=== PATIENT | female | born 1980 | race American Indian/Alaskan Native ===

== ENCOUNTER 2018-08-15 12:48 | Emergency (ER) | payer MEDICAID ==
[2018-08-15] MEDS ORDERED: CATAPRES PO ONE (13:33)
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
[2018-08-15] MEDS ORDERED: CATAPRES ONE (13:37)
[2018-08-15 13:54] LABS: Hematocrit 41.8 % (30.3-42.9); Hemoglobin 13.5 gm/dl (10.1-14.3); Mean Corpuscular HGB Conc 32 % (30-34); Mean Corpuscular Volume 76 fl (79-97); Platelet Count 361 K/mm3 (140-440); Red Blood Count 5.49 M/mm3 (3.65-5.03); Red Cell Distribution Width 14.1 % (13.2-15.2)
[2018-08-15 14:34] LABS: Alanine Aminotransferase 28 units/L (7-56); Albumin 4.1 g/dL (3.9-5); BUN/Creatinine Ratio 18; Blood Urea Nitrogen 11 mg/dL (7-17); Calcium 9.2 mg/dL (8.4-10.2); Hemolysis Index 6
[2018-08-15 14:49] LABS: Bacteria,Urine 4+ /HPF (Negative); Bilirubin,Urine NEG (Negative); Blood,Urine SM (Negative); Color,Urine Colorless (Yellow); Hyaline Casts,Urine 1 /LPF; Protein,Urine <15 mg/dL mg/dL (Negative); Urobilinogen,Urine < 2.0 mg/dL (<2.0)
[2018-08-15 14:55] LABS: HCG Qualitative,Urine Negative (Negative)
[2018-08-15 17:01] VITALS: BP 171/95
--- NOTE | 2018-08-15 17:06 | Emergency Department Report ---
ED General Adult HPI - General Chief complaint: High BP Stated complaint: HTN Time Seen by Provider: 08/15/18 13:29 Source: patient Mode of arrival: Wheelchair Limitations: No Limitations - History of Present Illness Initial comments: This is a 38-year-old -[place] female presents with elevated blood pressure from chiropractor's office. The patient states she was sent here directly from chiropractor's office because her blood pressure was elevated. Patient states she was seen by her PCP Dr. Craig. Last Tuesday and medications were revealed. She is currently taking losartan unsure of the dose. Patient states she is currently taking Lantus and NovoLog. She needed a prior authorization before able to purchase medication. Patient states she's been off insulin since last Tuesday. She denies chest pain, palpitations, shortness of breath, or dizziness. -: This morning Severity scale (0 -10): 0 Improves with: none Worsens with: none Associated Symptoms: denies other symptoms Treatments Prior to Arrival: none - Related Data Previous Rx's Medication Instructions Recorded Last Taken Type glipiZIDE [Glipizide] 10 mg PO DAILY #30 tablet 08/15/18 Unknown Rx Allergies Allergy/AdvReac Type Severity Reaction Status Date / Time shellfish derived Allergy Swelling Verified 02/19/13 20:31 acetaminophen [From Tylenol] AdvReac Unknown Verified 08/15/18 13:36 ED Review of Systems ROS: Stated complaint: HTN Other details as noted in HPI Constitutional: denies: chills, fever Eyes: denies: eye pain, eye discharge, vision change Respiratory: denies: cough, shortness of breath, wheezing Cardiovascular: denies: chest pain, palpitations Gastrointestinal: denies: abdominal pain, nausea, diarrhea Skin: denies: rash, lesions Neurological: denies: headache, weakness, paresthesias Psychiatric: denies: anxiety, depression ED Past Medical Hx - Past Medical History Previous Medical History?: Yes Hx Diabetes: Yes Hx Psychiatric Treatment: No (Patient denies) Hx Asthma: Yes - Social History Smoking Status: Never Smoker Substance Use Type: None - Medications Home Medications: Home Medications Medication Instructions Recorded Confirmed Last Taken Type glipiZIDE [Glipizide] 10 mg PO DAILY #30 tablet 08/15/18 Unknown Rx ED Physical Exam - General Limitations: No Limitations General appearance: alert, in no apparent distress, obese (morbidly obese) - Respiratory Respiratory exam: Present: normal lung sounds bilaterally. Absent: respiratory distress - Cardiovascular Cardiovascular Exam: Present: regular rate, normal rhythm. Absent: systolic murmur, diastolic murmur, rubs, gallop - GI/Abdominal GI/Abdominal exam: Present: soft, normal bowel sounds - Neurological Exam Neurological exam: Present: alert, oriented X3 - Psychiatric Psychiatric exam: Present: normal affect, normal mood - Skin Skin exam: Present: warm, dry, intact, normal color. Absent: rash ED Course Vital Signs 08/15/18 08/15/18 08/15/18 13:29 13:35 16:58 Temperature 98.2 F 97.4 F L Pulse Rate 74 74 74 Respiratory 18 16 Rate Blood Pressure 203/86 203/86 171/95 Blood Pressure [Right] O2 Sat by Pulse 100 99 Oximetry 08/15/18 17:19 Temperature Pulse Rate 75 Respiratory 16 Rate Blood Pressure Blood Pressure 171/95 [Right] O2 Sat by Pulse 98 Oximetry ED Medical Decision Making - Lab Data Result diagrams: 08/15/18 13:40 08/15/18 13:40 Lab Results 08/15/18 08/15/18 08/15/18 Range/Units 13:38 13:40 13:40 WBC 8.2 (4.5-11.0) K/mm3 RBC 5.49 H (3.65-5.03) M/mm3 Hgb 13.5 (10.1-14.3) gm/dl Hct 41.8 (30.3-42.9) % MCV 76 L (79-97) fl MCH 25 L (28-32) pg MCHC 32 (30-34) % RDW 14.1 (13.2-15.2) % Plt Count 361 (140-440) K/mm3 VBG pH (7.320-7.420) Sodium 139 (137-145) mmol/L Potassium 3.8 (3.6-5.0) mmol/L Chloride 99.6 (98-107) mmol/L Carbon Dioxide 28 (22-30) mmol/L Anion Gap 15 mmol/L BUN 11 (7-17) mg/dL Creatinine 0.6 L (0.7-1.2) mg/dL Estimated GFR > 60 ml/min BUN/Creatinine Ratio 18 % Glucose 276 H (65-100) mg/dL POC Glucose 266 H (70-105) Ketones Quantitative (Negative) Calcium 9.2 (8.4-10.2) mg/dL Total Bilirubin 0.20 (0.1-1.2) mg/dL AST 20 (5-40) units/L ALT 28 (7-56) units/L Alkaline Phosphatase 139 H (35-129) units/L Total Protein 7.7 (6.3-8.2) g/dL Albumin 4.1 (3.9-5) g/dL Albumin/Globulin Ratio 1.1 % Urine Color (Yellow) Urine Turbidity (Clear) Urine pH (5.0-7.0) Ur Specific [place] (1.003-1.030) Urine Protein (Negative) mg/dL Urine Glucose (UA) (Negative) mg/dL Urine Ketones (Negative) mg/dL Urine Blood (Negative) Urine Nitrite (Negative) Urine Bilirubin (Negative) Urine Urobilinogen (<2.0) mg/dL Ur Leukocyte Esterase (Negative) Urine WBC (Auto) (0.0-6.0) /HPF Urine RBC (Auto) (0.0-6.0) /HPF U Epithel Cells (Auto) (0-13.0) /HPF Urine Bacteria (Auto) (Negative) /HPF Hyaline Casts /LPF Urine HCG, Qual (Negative) 08/15/18 08/15/18 08/15/18 Range/Units 13:40 13:40 13:49 WBC (4.5-11.0) K/mm3 RBC (3.65-5.03) M/mm3 Hgb (10.1-14.3) gm/dl Hct (30.3-42.9) % MCV (79-97) fl MCH (28-32) pg MCHC (30-34) % RDW (13.2-15.2) % Plt Count (140-440) K/mm3 VBG pH 7.298 L (7.320-7.420) Sodium (137-145) mmol/L Potassium (3.6-5.0) mmol/L Chloride (98-107) mmol/L Carbon Dioxide (22-30) mmol/L Anion Gap mmol/L BUN (7-17) mg/dL Creatinine (0.7-1.2) mg/dL Estimated GFR ml/min BUN/Creatinine Ratio % Glucose (65-100) mg/dL POC Glucose (70-105) Ketones Quantitative Negative (Negative) Calcium (8.4-10.2) mg/dL Total Bilirubin (0.1-1.2) mg/dL AST (5-40) units/L ALT (7-56) units/L Alkaline Phosphatase (35-129) units/L Total Protein (6.3-8.2) g/dL Albumin (3.9-5) g/dL Albumin/Globulin Ratio % Urine Color Colorless (Yellow) Urine Turbidity Clear (Clear) Urine pH 6.0 (5.0-7.0) Ur Specific [place] 1.001 L (1.003-1.030) Urine Protein <15 mg/dl (Negative) mg/dL Urine Glucose (UA) >=500 (Negative) mg/dL Urine Ketones Neg (Negative) mg/dL Urine Blood Sm (Negative) Urine Nitrite Neg (Negative) Urine Bilirubin Neg (Negative) Urine Urobilinogen < 2.0 (<2.0) mg/dL Ur Leukocyte Esterase Neg (Negative) Urine WBC (Auto) 1.0 (0.0-6.0) /HPF Urine RBC (Auto) 1.0 (0.0-6.0) /HPF U Epithel Cells (Auto) 1.0 (0-13.0) /HPF Urine Bacteria (Auto) 4+ (Negative) /HPF Hyaline Casts 1 /LPF Urine HCG, Qual Negative (Negative) 08/15/18 Range/Units 18:37 WBC (4.5-11.0) K/mm3 RBC (3.65-5.03) M/mm3 Hgb (10.1-14.3) gm/dl Hct (30.3-42.9) % MCV (79-97) fl MCH (28-32) pg MCHC (30-34) % RDW (13.2-15.2) % Plt Count (140-440) K/mm3 VBG pH (7.320-7.420) Sodium (137-145) mmol/L Potassium (3.6-5.0) mmol/L Chloride (98-107) mmol/L Carbon Dioxide (22-30) mmol/L Anion Gap mmol/L BUN (7-17) mg/dL Creatinine (0.7-1.2) mg/dL Estimated GFR ml/min BUN/Creatinine Ratio % Glucose (65-100) mg/dL POC Glucose 235 H (70-105) Ketones Quantitative (Negative) Calcium (8.4-10.2) mg/dL Total Bilirubin (0.1-1.2) mg/dL AST (5-40) units/L ALT (7-56) units/L Alkaline Phosphatase (35-129) units/L Total Protein (6.3-8.2) g/dL Albumin (3.9-5) g/dL Albumin/Globulin Ratio % Urine Color (Yellow) Urine Turbidity (Clear) Urine pH (5.0-7.0) Ur Specific [place] (1.003-1.030) Urine Protein (Negative) mg/dL Urine Glucose (UA) (Negative) mg/dL Urine Ketones (Negative) mg/dL Urine Blood (Negative) Urine Nitrite (Negative) Urine Bilirubin (Negative) Urine Urobilinogen (<2.0) mg/dL Ur Leukocyte Esterase (Negative) Urine WBC (Auto) (0.0-6.0) /HPF Urine RBC (Auto) (0.0-6.0) /HPF U Epithel Cells (Auto) (0-13.0) /HPF Urine Bacteria (Auto) (Negative) /HPF Hyaline Casts /LPF Urine HCG, Qual (Negative) - Medical Decision Making This is a 38 y.o. female that presents to ER for evaluation of blood pressure. History of HTN, DM, and asthma. Patient sent here from chiropractor office. She is off insulin since Tuesday, pending prior authorization and PCP. She is currently taking losartan and unsure of dose. She denies acute symptoms. Patient is stable and was examined by me. Given clonidine and insulin once in ER. Blood pressure and glucose trended down. Start glipizide. Follow up with PCP in 2-3 days. Discussed plan with patient and agreed to plan. No further questions noted by the patient. Discharged home in stable condition. Critical care attestation.: If time is entered above; I have spent that time in minutes in the direct care of this critically ill patient, excluding procedure time. ED Disposition Clinical Impression: Asymptomatic hypertension, Hyperglycemia without ketosis Disposition: TO HOME OR SELFCARE Is pt being admited?: No Does the pt Need Aspirin: No Condition: Stable Instructions: Diabetes Mellitus Type 2 in Adults (ED), Hypertension (ED) Additional Instructions: Follow up with PCP. Prescriptions: glipiZIDE [Glipizide] 10 mg PO DAILY #30 tablet Referrals: ORAL ARANDA MD [Staff Physician] - 3-5 Days SLOANE ARANDA MD [Referring] - 3-5 Days MARCELINA CARUSO MD [Staff Physician] - 3-5 Days Time of Disposition: 18:46
[2018-08-15] MEDS ORDERED: HumuLIN R IV ONE (17:12)
== END 2018-08-15 19:05 | disposition home or self-care (01) ==
LOC: ED 12:48
DX: I10 Essential (primary) hypertension (principal); E11.65 Type 2 diabetes mellitus with hyperglycemia; J45.909 Unspecified asthma, uncomplicated; E66.01 Morbid (severe) obesity due to excess calories; Z68.42 Body mass index [BMI] 45.0-49.9, adult; Z91.013 Allergy to seafood; Z79.4 Long term (current) use of insulin; Z88.5 Allergy status to narcotic agent
CPT/HCPCS: 36415; 80053; 81001; 81025; 82010; 82805; 82962; 85027; 96374; J1815

== ENCOUNTER 2020-01-11 16:19 | Inpatient (IN) | payer MEDICAID ==
[~2020-01-11 16:19] MED LIST: ETOMIDATE 20 MG/10 ML INJ IV ONE; SUCCINYLCHOLINE CHLORIDE 200 MG/10 ML INJ MDV ONE
[2020-01-11] MEDS ORDERED: SODIUM CHLORIDE 0.9% 1000 ML 1,000 ML IV ONE (16:49)
[2020-01-11] MEDS: cefTRIAXone/NS 2 GM/100 ML 2 GM/100 ML BAG IV SCH (17:12)
--- NOTE | 2020-01-11 17:20 | Emergency Department Report ---
ED Shortness of Breath HPI - General Chief Complaint: Dyspnea/Respdistress Stated Complaint: ALTON/COVID POSITIVE Time Seen by Provider: 01/11/20 16:30 Source: patient, EMS Mode of arrival: Wheelchair Limitations: No Limitations - History of Present Illness Initial Comments: Patient is a 39-year-old F [place] female with a past medical history of asthma diabetes who is presenting with respiratory distress. Patient tested positive for COVID-19 approximately 8 days ago. Patient has been having cough which is nonproductive. Patient states symptoms worsened today and she became very short of breath. She called her primary care physician who told her to come to the emergency department. Patient's had fevers and chills body aches. She denies nausea vomiting. MD Complaint: shortness of breath - Related Data Previous Rx's Medication Instructions Recorded Last Taken Type glipiZIDE [Glipizide] 10 mg PO DAILY #30 tablet 08/15/18 Unknown Rx Allergies Allergy/AdvReac Type Severity Reaction Status Date / Time shellfish derived Allergy Swelling Verified 02/19/13 20:31 acetaminophen [From Tylenol] AdvReac Unknown Verified 08/15/18 13:36 ED Review of Systems ROS: Stated complaint: ALTON/COVID POSITIVE Other details as noted in HPI ED Past Medical Hx - Past Medical History Hx Diabetes: Yes Hx Psychiatric Treatment: No (Patient denies) Hx Asthma: Yes - Social History Smoking Status: Never Smoker Substance Use Type: None - Medications Home Medications: Home Medications Medication Instructions Recorded Confirmed Last Taken Type glipiZIDE [Glipizide] 10 mg PO DAILY #30 tablet 08/15/18 Unknown Rx ED Physical Exam - General Limitations: No Limitations ED Course Vital Signs 01/11/20 01/11/20 01/11/20 16:20 16:46 17:15 Temperature 101.3 F H Pulse Rate 94 H 114 H Respiratory 45 H Rate Blood Pressure 122/64 101/53 O2 Sat by Pulse 96 86 Oximetry ED Medical Decision Making - Lab Data Result diagrams: 01/11/20 17:22 Lab Results 01/11/20 01/11/20 01/11/20 Range/Units 17:22 17:22 17:22 D-Dimer 622.52 H (0-234) ng/mlDDU Sodium 137 (137-145) mmol/L Potassium 3.8 (3.6-5.0) mmol/L Chloride 97.6 L (98-107) mmol/L Carbon Dioxide 18 L (22-30) mmol/L Anion Gap 25 mmol/L BUN 16 (7-17) mg/dL Creatinine 1.2 (0.6-1.2) mg/dL Estimated GFR > 60 ml/min BUN/Creatinine Ratio 13 % Glucose 199 H (65-100) mg/dL Lactic Acid 2.20 H* (0.7-2.0) mmol/L Calcium 8.5 (8.4-10.2) mg/dL Ferritin (10.0-200.0) ng/mL Total Bilirubin 0.20 (0.1-1.2) mg/dL AST 68 H (5-40) units/L ALT 32 (7-56) units/L Alkaline Phosphatase 103 (35-129) units/L Lactate Dehydrogenase (91-180) units/L C-Reactive Protein (0.00-1.30) mg/dL Total Protein 7.0 (6.3-8.2) g/dL Albumin 3.0 L (3.9-5) g/dL Albumin/Globulin Ratio 0.8 % 01/11/20 01/11/20 Range/Units 17:22 17:22 D-Dimer (0-234) ng/mlDDU Sodium (137-145) mmol/L Potassium (3.6-5.0) mmol/L Chloride (98-107) mmol/L Carbon Dioxide (22-30) mmol/L Anion Gap mmol/L BUN (7-17) mg/dL Creatinine (0.6-1.2) mg/dL Estimated GFR ml/min BUN/Creatinine Ratio % Glucose 202 H (65-100) mg/dL Lactic Acid (0.7-2.0) mmol/L Calcium (8.4-10.2) mg/dL Ferritin 270.3 H (10.0-200.0) ng/mL Total Bilirubin (0.1-1.2) mg/dL AST (5-40) units/L ALT (7-56) units/L Alkaline Phosphatase (35-129) units/L Lactate Dehydrogenase 610 H (91-180) units/L C-Reactive Protein 23.80 H (0.00-1.30) mg/dL Total Protein (6.3-8.2) g/dL Albumin (3.9-5) g/dL Albumin/Globulin Ratio % - Radiology Data CHEST 1 VIEW 1656 INDICATION / CLINICAL INFORMATION: resp distress +covid COMPARISON: None available. FINDINGS: SUPPORT DEVICES: None HEART / MEDIASTINUM: No significant abnormality. LUNGS / PLEURA: Poor degree of inspiration is seen. Moderate patchy bilateral pulmonary infiltrates are noted. These are seen scattered throughout the lung jaimes bilaterally but are most prominent in the lung bases, right worse than left. Air bronchograms are seen in the lung bases. No pneumothorax. ADDITIONAL FINDINGS: No significant additional findings. IMPRESSION: Moderate patchy bilateral pulmonary infiltrates likely representing pneumonitis which could be viral Signer Name: Dante Iqbal MD Signed: 01/11/2020 5:23 PM Workstation Name: [email or web address] [id number] - Medical Decision Making Patient's O2 sat was in the 70s when EMS picked her up. Upper 80s on nasal c annula. Patient responded well to high flow nasal cannula and her O2 sats were in the mid 90s. Patient is chest x-ray consistent with bilateral pneumonia which is likely secondary to her COVID-19 diagnosis. Patient to be admitted to the hospitalist service for further management. Critical Care Time: Yes (30) Critical care attestation.: If time is entered above; I have spent that time in minutes in the direct care of this critically ill patient, excluding procedure time. ED Disposition Clinical Impression: COVID-19 Pneumonia Qualifiers: Pneumonia type: due to unspecified organism Laterality: bilateral Lung location: unspecified part of lung Qualified Code(s): J18.9 - Pneumonia, unspecified organism Disposition: DC-09 OP ADMIT IP TO THIS HOSP Is pt being admited?: Yes Does the pt Need Aspirin: No Condition: Stable Instructions: Bacterial Pneumonia (ED) Time of Disposition: 18:36
--- NOTE | 2020-01-11 17:27 | XRay Report ---
CHEST 1 VIEW 1656 INDICATION / CLINICAL INFORMATION: resp distress +covid COMPARISON: None available. FINDINGS: SUPPORT DEVICES: None HEART / MEDIASTINUM: No significant abnormality. LUNGS / PLEURA: Poor degree of inspiration is seen. Moderate patchy bilateral pulmonary infiltrates a re noted. These are seen scattered throughout the lung jaimes bilaterally but are most prominent in t he lung bases, right worse than left. Air bronchograms are seen in the lung bases. No pneumothorax. ADDITIONAL FINDINGS: No significant additional findings. IMPRESSION: Moderate patchy bilateral pulmonary infiltrates likely representing pneumonitis which cou ld be viral Signer Name: Dante Iqbal MD Signed: 01/11/2020 5:23 PM Workstation Name: [id number]
[2020-01-11 17:54] LABS: Alanine Aminotransferase 32 units/L (7-56); BUN/Creatinine Ratio 13; Blood Urea Nitrogen 16 mg/dL (7-17); Calcium 8.5 mg/dL (8.4-10.2); Hemolysis Index 0
[2020-01-11 17:55] LABS: C-Reactive Protein 23.8 mg/dL (0.00-1.30)
[2020-01-11] MEDS: AZITHROMYCIN 500 MG in SODIUM CHLORIDE 0.9% 250ML 250 ML IV SCH (18:11)
[2020-01-11] MEDS ORDERED: dexAMETHasone 20 MG/5 ML VIAL IV ONE (18:50)
--- NOTE | 2020-01-11 18:51 | History and Physical Report ---
History of Present Illness Chief complaint: It is hard for me to breathe History of present illness: 39 YO Female with MO, Obesity Hypoventilation Syndrome, DM, Asthma presents to ED for evaluation. Patient states that she has experienced shortness of breath over the past 3 days with worsening symptoms over the past 1 day. Patient also acknowledges nonproductive cough, malaise, weakness, fatigue, decreased exercise tolerance, subjective fever and body aches. Patient states that she tested positive for coronavirus 8 days ago and has experienced worsening symptoms over the past 3 days. EMS was notified and upon arrival the patient was found to be in distress. Patient placed on submental oxygen and transported to [facility] for further care and evaluation. Patient seen and evaluated in the emergency department. Lab and imaging studies reviewed. Patient found to have a pulse oximetry of 80% on room air which is consistent with acute hypoxemic respiratory failure as well as a fever with a temperature of 101.3 F. Patient underwent chest x-ray which revealed bilateral pneumonia which was complicated by sepsis. Patient admitted to medical floor and initiated on pneumonia protocol as well as COVID-19 protocol as well as sepsis protocol. Patient denies chills, chest pain, palpitations, productive cough, skin rash, recent ill contacts. Patient acknowledges positive coronavirus infection. No prior admission for review. All medication listed at time of admission has been reconciled. Coronavirus PCR has been ordered and is pending at time of admission. Past History Past Medical History: diabetes Past Surgical History: No surgical history, Other (Reviewed) Social history: single. denies: smoking, alcohol abuse, prescription drug abuse Family history: diabetes, hypertension Medications and Allergies Allergies Allergy/AdvReac Type Severity Reaction Status Date / Time shellfish derived Allergy Swelling Verified 01/11/20 18:37 Home Medications Medication Instructions Recorded Confirmed Last Taken Type glipiZIDE [Glipizide] 10 mg PO DAILY #30 tablet 08/15/18 Unknown Rx Active Meds: Active Medications Dexamethasone (Decadron) 10 mg IV ONCE ONE Stop: 01/11/20 18:51 Ceftriaxone Sodium (Rocephin/Ns 2 Gm/100 Ml) 2 gm in 100 mls @ 200 mls/hr IV Q24HR ASHISH; Protocol Last Admin: 01/11/20 17:12 Dose: 200 mls/hr Documented by: Azithromycin 500 mg/ Sodium (Chloride) 250 mls @ 250 mls/hr IV Q24HR ASHISH; Protocol Last Admin: 01/11/20 18:11 Dose: 250 mls/hr Documented by: Review of Systems Constitutional: no weight loss, no weight gain, no fever, no chills Ears, nose, mouth and throat: no ear pain, no ear discharge, no tinnitis, no decreased hearing, no nose pain Breasts: no change in shape, no swelling, no mass Cardiovascular: no chest pain, no orthopnea, no edema, no lightheadedness Respiratory: cough, shortness of breath, no congestion, no wheezing Gastrointestinal: no abdominal pain, no nausea, no vomiting, no diarrhea, no constipation Genitourinary Female: no dysmenorrhea, no pelvic pain, no flank pain, no menorrhagia, no dysuria Rectal: no pain, no incontinence, no bleeding Musculoskeletal: no neck stiffness, no neck pain, no shooting arm pain, no arm numbness/tingling, no low back pain Integumentary: no rash, no pruritis, no redness, no sores, no wounds Neurological: no transient paralysis, no paralysis, no weakness, no parathesias, no numbness, no tingling Psychiatric: no anxiety, no memory loss, no change in sleep habits, no change in appetite Endocrine: no cold intolerance, no heat intolerance, no polyphagia, no excessive thirst, no polydipsia, no polyuria, no nocturia Hematologic/Lymphatic: no easy bruising, no easy bleeding, no lymphadenopathy, no lymphedema Allergic/Immunologic: no urticaria, no allergic rhinitis, no wheezing, no anaphylaxis Exam - Constitutional Vitals: Temp Pulse Resp BP Pulse Ox 101.3 F H 115 H 66 H 132/53 93 01/11/20 16:46 01/11/20 18:31 01/11/20 18:31 01/11/20 18:31 01/11/20 18:31 General appearance: Present: mild distress - EENT Eyes: Present: PERRL ENT: hearing intact, clear oral mucosa - Neck Neck: Present: supple, normal ROM - Respiratory Respiratory effort: labored, accessory muscle use, stridor Respiratory: bilateral: diminished, rhonchi - Cardiovascular Heart Sounds: Present: S1 & S2. Absent: rub, click - Extremities Extremities: pulses symmetrical, No edema Peripheral Pulses: within normal limits - Abdominal General gastrointestinal: Present: soft, non-tender, non-distended, normal bowel sounds Female genitourinary: Present: normal - Integumentary Integumentary: Present: clear, warm, dry - Musculoskeletal Musculoskeletal: gait normal, strength equal bilaterally - Psychiatric Psychiatric: appropriate mood/affect, intact judgment & insight - Neurologic Neurologic: CNII-XII intact, moves all extremities Results - Labs CBC & Chem 7: 01/11/20 17:22 Labs: Abnormal lab results 01/11/20 01/11/20 01/11/20 Range/Units 17:22 17:22 17:22 D-Dimer 622.52 H (0-234) ng/mlDDU Chloride 97.6 L (98-107) mmol/L Carbon Dioxide 18 L (22-30) mmol/L Glucose 199 H (65-100) mg/dL Lactic Acid 2.20 H* (0.7-2.0) mmol/L Ferritin (10.0-200.0) ng/mL AST 68 H (5-40) units/L Lactate Dehydrogenase (91-180) units/L C-Reactive Protein (0.00-1.30) mg/dL Albumin 3.0 L (3.9-5) g/dL 01/11/20 01/11/20 Range/Units 17:22 17:22 D-Dimer (0-234) ng/mlDDU Chloride (98-107) mmol/L Carbon Dioxide (22-30) mmol/L Glucose 202 H (65-100) mg/dL Lactic Acid (0.7-2.0) mmol/L Ferritin 270.3 H (10.0-200.0) ng/mL AST (5-40) units/L Lactate Dehydrogenase 610 H (91-180) units/L C-Reactive Protein 23.80 H (0.00-1.30) mg/dL Albumin (3.9-5) g/dL Assessment and Plan - Patient Problems (1) Sepsis Current Visit: Yes Status: Acute Qualifiers: Acute respiratory failure type: with hypoxia Plan to address problem: Sepsis protocol: CBC, CMP, IV antibiotic therapy, monitor urine output every shift, serial lactic acid level, chest x-ray, urinalysis (2) Acute hypoxemic respiratory failure Current Visit: Yes Status: Acute Plan to address problem: Supplemental oxygen, nebulizer therapy, chest x-ray, pulse oximetry, supportive care, early ambulation. (3) Obesity hypoventilation syndrome Current Visit: Yes Status: Acute Plan to address problem: Supplemental oxygen, nebulizer therapy, high flow supplemental oxygen, wean supplemental oxygen as tolerated, balanced diet, increase physical activity at discharge, outpatient bariatric surgery follow-up, outpatient pulmonology evaluation for sleep study. (4) COVID-19 Current Visit: No Status: Acute Plan to address problem: Coronavirus protocol: Contact precautions, isolation precautions, IV steroid therapy, prone positioning while in bed, early ambulation, pulmonary toilet, supportive care. (5) Pneumonia Current Visit: No Status: Acute Qualifiers: Pneumonia type: due to unspecified organism Laterality: bilateral Lung location: unspecified part of lung Qualified Code(s): J18.9 - Pneumonia, unspecified organism Plan to address problem: Pneumonia protocol: IV antibiotic therapy, chest x-ray, CBC, CMP, blood cultures. (6) DVT prophylaxis Current Visit: Yes Status: Acute Plan to address problem: SCD to bilateral lower extremities while in bed, prophylactic anticoagulation
[2020-01-11] MEDS ORDERED: ONDANSETRON 4 MG/2 ML INJ IV PRN ×2 (18:52→18:55)
[2020-01-11] MEDS ORDERED: ACETAMINOPHEN 325 MG TAB PO PRN ×3 (18:52→18:59)
[2020-01-11] MEDS ORDERED: HYDROmorphone 1 MG/1 ML INJ IV PRN (18:57)
[2020-01-11] MEDS ORDERED: SODIUM CHLORIDE 0.9% 1000 ML IV SOLN IV ONE (18:59)
[2020-01-11] MEDS ORDERED: dexAMETHasone 20 MG/5 ML VIAL ONE (20:06)
[2020-01-11] MEDS ORDERED: SODIUM CHLORIDE 0.9% 1000 ML 1,000 ML ONE (20:06)
[2020-01-11] MEDS ORDERED: HYDROmorphone 1 MG/1 ML INJ ONE (20:06)
[2020-01-11] MEDS: HYDROmorphone 1 MG/1 ML INJ IV PRN (20:11)
[2020-01-11 22:10] LABS: Bacteria,Urine 1+ /HPF (Negative); Bilirubin,Urine NEG (Negative); Blood,Urine MOD (Negative); Color,Urine Yellow (Yellow); Urobilinogen,Urine < 2.0 mg/dL (<2.0)
[2020-01-11 22:11] LABS: Protein,Urine >500 mg/dL (Negative)
[2020-01-11] MEDS: FAMOTIDINE 20 MG TAB PO SCH (22:38)
[2020-01-11] MEDS: methylPREDNISolone Sod Succinate 40 MG/1 ML INJ IV SCH (22:38)
[2020-01-12] MEDS ORDERED: ALPRAZolam 0.25 MG TAB PO ONE (01:05)
[2020-01-12 07:42] LABS: Basophils % (Auto) 0.1 % (0.0-1.8); Hematocrit 40.6 % (30.3-42.9); Hemoglobin 13.2 gm/dl (10.1-14.3); Lymphocytes # (Auto) 1.2 K/mm3 (1.2-5.4); Lymphocytes % (Auto) 11.2 % (13.4-35.0); Mean Corpuscular HGB Conc 33 % (30-34); Mean Corpuscular Volume 76 fl (79-97); Monocytes # (Auto) 0.4 K/mm3 (0.0-0.8); Monocytes % (Auto) 3.5 % (0.0-7.3); Platelet Count 268 K/mm3 (140-440); Red Blood Count 5.31 M/mm3 (3.65-5.03); Red Cell Distribution Width 15.5 % (13.2-15.2)
[2020-01-12 07:52] LABS: BUN/Creatinine Ratio 19; Blood Urea Nitrogen 23 mg/dL (7-17); Calcium 8.7 mg/dL (8.4-10.2); Hemolysis Index 0
[2020-01-12] MEDS ORDERED: cefTRIAXone/NS 2 GM/100 ML 2 GM/100 ML BAG IV SCH (10:00)
--- NOTE | 2020-01-12 11:23 | Progress Note ---
Assessment and Plan - Patient Problems (1) Sepsis-stable Current Visit: Yes Status: Acute Qualifiers: Acute respiratory failure type: with hypoxia on vapor therm Plan to address problem: Continue Sepsis protocol: Continue IV antibiotic therapy (2) Acute hypoxemic respiratory failurelikely due to Covid infection Current Visit: Yes Status: Acute Plan to address problem: Continue oxygen supplement Respiratory care-ABG, nebulizer therapy Monitor inflammatory [id number] Encourage use of IS and early ambulation (3) Obesity hypoventilation syndrome Current Visit: Yes Status: Acute Plan to address problem: Discussed lifestyle modification-healthy diet and weight management Continue Supplemental oxygen, nebulizer therapy, high flow supplemental oxygen, wean supplemental oxygen as tolerated. Advised to follow up outpatient pulmonology for evaluation for sleep study. (4) [id number] Current Visit: No Status: Acute Plan to address problem: Continue Coronavirus protocol: Contact precautions, isolation precautions Continue IV steroid therapy, prone positioning while in bed, early ambulation, pulmonary toilet, supportive care. Check inflammatory makers-Procalcitonin negative D-dimer, LDH (5) Pneumonia Current Visit: No Status: Acute Qualifiers: Pneumonia type: due to unspecified organism Laterality: bilateral Lung location: unspecified part of lung Qualified Code(s): J18.9 - Pneumonia, unspecified organism Plan to address problem: Continue IV antibiotic therapy serial chest x-ray, CBC, CMP, blood cultures. (6) DVT prophylaxis Current Visit: Yes Status: Acute Plan to address problem: SCD to bilateral lower extremities while in bed, prophylactic anticoagulation Subjective Date of service: 01/12/20 Principal diagnosis: Shortness of breath Interval history: Patient seen at bedside-on vapor therm at 100 % oxygen. She admits shortness of breath, denies chest pain and chiles at time of assessment She said she was positive for covid 8 days ago and did not have symptoms at that time Advised to use IS while awake and to ambulate around the room Reviewed lab, mar, and v/s Objective - Constitutional Vitals: Vital Signs - 12hr 01/12/20 04:57 Temperature 99.4 F Pulse Rate 85 Respiratory 22 Rate Blood Pressure 111/68 O2 Sat by Pulse 93 Oximetry General appearance: Present: mild distress, obese - EENT Eyes: PERRL, EOM intact ENT: hearing intact, clear oral mucosa Ears: bilateral: normal - Neck Neck: supple, normal ROM - Respiratory Respiratory effort: other (shortness of breath-requiring oxygen supplement-but patient presently not in acute distress) Respiratory: bilateral: CTA - Breasts Breasts: normal - Cardiovascular Heart rate: 76 Rhythm: regular Extremities: pulses intact, No edema, normal color, Full ROM - Genitourinary Female genitourinary: normal - Integumentary Integumentary: clear, warm, dry - Musculoskeletal Musculoskeletal: generalized weakness (encouraged to ambulate as tolerated) - Psychiatric Psychiatric: appropriate mood/affect, intact judgment & insight, memory intact, cooperative - Allied health notes Allied health notes reviewed: nursing - Labs CBC & Chem 7: 01/12/20 07:07 01/12/20 07:07 Labs: Abnormal lab results 01/11/20 01/11/20 01/11/20 Range/Units 17:22 17:22 17:22 RBC (3.65-5.03) M/mm3 MCV (79-97) fl MCH (28-32) pg RDW (13.2-15.2) % Lymph % (Auto) (13.4-35.0) % Seg Neutrophils % (40.0-70.0) % Seg Neutrophils # (1.8-7.7) K/mm3 D-Dimer 622.52 H (0-234) ng/mlDDU Chloride 97.6 L (98-107) mmol/L Carbon Dioxide 18 L (22-30) mmol/L BUN (7-17) mg/dL Glucose 199 H (65-100) mg/dL Lactic Acid 2.20 H* (0.7-2.0) mmol/L Ferritin (10.0-200.0) ng/mL AST 68 H (5-40) units/L Lactate Dehydrogenase (91-180) units/L C-Reactive Protein (0.00-1.30) mg/dL Albumin 3.0 L (3.9-5) g/dL 01/11/20 01/11/20 01/11/20 Range/Units 17:22 17:22 23:29 RBC (3.65-5.03) M/mm3 MCV (79-97) fl MCH (28-32) pg RDW (13.2-15.2) % Lymph % (Auto) (13.4-35.0) % Seg Neutrophils % (40.0-70.0) % Seg Neutrophils # (1.8-7.7) K/mm3 D-Dimer (0-234) ng/mlDDU Chloride (98-107) mmol/L Carbon Dioxide (22-30) mmol/L BUN (7-17) mg/dL Glucose 202 H (65-100) mg/dL Lactic Acid 2.10 H* (0.7-2.0) mmol/L Ferritin 270.3 H (10.0-200.0) ng/mL AST (5-40) units/L Lactate Dehydrogenase 610 H (91-180) units/L C-Reactive Protein 23.80 H (0.00-1.30) mg/dL Albumin (3.9-5) g/dL 01/12/20 01/12/20 Range/Units 07:07 07:07 RBC 5.31 H (3.65-5.03) M/mm3 MCV 76 L (79-97) fl MCH 25 L (28-32) pg RDW 15.5 H (13.2-15.2) % Lymph % (Auto) 11.2 L (13.4-35.0) % Seg Neutrophils % 85.2 H (40.0-70.0) % Seg Neutrophils # 9.2 H (1.8-7.7) K/mm3 D-Dimer (0-234) ng/mlDDU Chloride (98-107) mmol/L Carbon Dioxide 21 L (22-30) mmol/L BUN 23 H (7-17) mg/dL Glucose 206 H (65-100) mg/dL Lactic Acid (0.7-2.0) mmol/L Ferritin (10.0-200.0) ng/mL AST (5-40) units/L Lactate Dehydrogenase (91-180) units/L C-Reactive Protein (0.00-1.30) mg/dL Albumin (3.9-5) g/dL
[2020-01-12] MEDS: cefTRIAXone/NS 2 GM/100 ML 2 GM/100 ML BAG IV SCH (12:06)
[2020-01-12] MEDS: FAMOTIDINE 20 MG TAB PO SCH ×2 (12:06→21:36)
[2020-01-12] MEDS: AZITHROMYCIN 500 MG in SODIUM CHLORIDE 0.9% 250ML 250 ML IV SCH (14:43)
[2020-01-12] MEDS: methylPREDNISolone Sod Succinate 40 MG/1 ML INJ IV SCH ×2 (15:14→22:00)
[2020-01-12] MEDS: HYDROmorphone 1 MG/1 ML INJ IV PRN (21:36)
--- NOTE | 2020-01-13 01:46 | Event Note ---
ED MD intubation note Requested by hospitalist Dr. Banks to intubate the patient Intubation note Consent was obtained verbally Preoxygenation with 100% oxygen Patient was sedated with etomidate 20mg IV Patient was paralyzed with succinylcholine 100 mg IV A size 7.5 mm ET tube was inserted orally on first attempt using a glidescope ET tube visualized going between the vocal cord There was symmetric chest rise and bilateral breath sounds post intubation A CO2 indicator was used for confirmation and resulted in positive CO2 return ET tube was taped at 21 cm at the lips The patient tolerated the procedure well There were no complications
[2020-01-13] MEDS: fentaNYL 100 MCG/2 ML INJ IV PRN ×2 (01:50→02:15)
[2020-01-13] MEDS ORDERED: MIDAZOLAM 2 MG/2 ML INJ IV PRN (01:52)
[2020-01-13] MEDS ORDERED: MINERAL OIL/PETROLATUM, WHITE OPHTH OINT 3.5 GM OU PRN (01:52)
[2020-01-13] MEDS ORDERED: LIP THERAPY VASELINE TP PRN (01:52)
[2020-01-13] MEDS: fentaNYL DRIP Premix 2,000 MCG/100 ML BAG IV SCH ×4 (02:37→17:42)
--- NOTE | 2020-01-13 03:10 | Event Note ---
Date: 01/13/20 39-year-old female who has been on admission for acute hypoxic respiratory failure, she is also COVID 19+ has become hypoxic and had to be transferred into the intensive care unit. She was subsequently intubated at the recommendation of the jailor. Will monitor closely in the ICU.
--- NOTE | 2020-01-13 03:26 | XRay Report ---
CHEST 1 VIEW 01/13/2020 2:10 AM INDICATION / CLINICAL INFORMATION: ETT placement. COMPARISON: 01/11/2020 FINDINGS: SUPPORT DEVICES: New ET tube has tip 3.5 cm above etienne HEART / MEDIASTINUM: No significant abnormality. LUNGS / PLEURA: Moderate patchy bilateral parenchymal disease has progressed characteristic for pneum onia No pneumothorax. ADDITIONAL FINDINGS: No significant additional findings. IMPRESSION: 1. Worsening bilateral pneumonia Signer Name: Silvio Pruitt MD Signed: 01/13/2020 3:21 AM Workstation Name: [id number]
[2020-01-13] MEDS: methylPREDNISolone Sod Succinate 40 MG/1 ML INJ IV SCH ×2 (05:27→09:49)
[2020-01-13] MEDS: MIDAZOLAM 100 MG in SODIUM CHLORIDE 0.9% 80 ML IV SCH (05:28)
[2020-01-13] MEDS ORDERED: INSULIN LISPRO 100 UNIT/ML VIAL 3 mL SUB-Q SCH (07:30)
[2020-01-13] MEDS ORDERED: AZITHROMYCIN 250 MG TAB PO SCH (10:00)
--- NOTE | 2020-01-13 10:01 | Progress Note ---
Assessment and Plan - Patient Problems (1) Sepsis-presently intubated Current Visit: Yes Status: Acute Qualifiers: Acute respiratory failure type: with hypoxia on vapor therm Plan to address problem: Continue Sepsis protocol: Continue IV antibiotic therapy (2) Acute hypoxemic respiratory failure likely due to Covid infection Current Visit: Yes Status: Acute Plan to address problem: Respiratory care-ABG, nebulizer therapy Monitor inflammatory [id number] Continue decadrone per protocol Patient may benefit from convalescent plasma therapy. Will start-if okay with ID/nurse auditor presently intubated-sedated on versed, fentanyl and propofol drip (3) Obesity hypoventilation syndrome Current Visit: Yes Status: Acute Plan to address problem: Will Discussed lifestyle modification-healthy diet and weight management-when patient is stable Continue Supplemental oxygen, nebulizer therapy, high flow supplemental oxygen, wean supplemental oxygen as tolerated. Patient will need to follow up outpatient pulmonology for evaluation for sleep study. (4) [id number] Current Visit: No Status: Acute Plan to address problem: Continue Coronavirus protocol: Contact precautions, isolation precautions Continue IV steroid therapy, prone positioning while in bed, early ambulation, pulmonary toilet, supportive care. Check inflammatory makers-Procalcitonin negative D-dimer, LDH ID and nurse auditor consulted-f/u with recommendation Patient may benefit from convalescent plasma therapy. Will start-if okay with ID/nurse auditor (5) Pneumonia Current Visit: No Status: Acute Qualifiers: Pneumonia type: due to unspecified organism Laterality: bilateral Lung location: unspecified part of lung Qualified Code(s): J18.9 - Pneumonia, unspecified organism Plan to address problem: Continue IV antibiotic therapy serial chest x-ray, CBC, CMP, blood cultures. The high probability of a clinically significant, sudden or life threatening deterioration of the [Respiratory] system(s) required my full and direct attention, intervention and personal management. The aggregate critical care time was [35] minutes. This time is in addition to time spent performing reported procedures but includes the following: [x] Data Review and interpretation [x] Patient assessment and monitoring of vital signs [x] Documentation [x] Medication orders and management (6) DVT prophylaxis Current Visit: Yes Status: Acute Plan to address problem: SCD to bilateral lower extremities while in bed, prophylactic anticoagulation Subjective Date of service: 01/13/20 Principal diagnosis: Shortness of breath Interval history: 01/12/20-Patient was seen at bedside-on vapor therm at 100 % oxygen. She admits shortness of breath, denies chest pain and chiles at time of assessment She said she was positive for covid 8 days ago and did not have symptoms at that time Advised to use IS while awake and to ambulate around the room 01/13/20-during the night patient became-acute hypoxic with respiratory failure and had to be transferred into the intensive care unit. patient was intubated-reviewed lab, mar, and v/s Patient seen at bedside in ICU -patient sedated on propofol, versed drip and fentanyl drip Orally intubated- vent setting-Fi02 80%, Tidal Volume 450, and peep of 18-oxygen saturation 96 to 97% ID and nurse auditor consulted 12 Lead EKG ordered Objective - Constitutional Vitals: Vital Signs - 12hr 01/12/20 01/12/20 01/13/20 22:13 22:52 00:40 Temperature 99.0 F Pulse Rate 79 94 H 115 H Respiratory 45 H 20 22 Rate Blood Pressure 152/71 O2 Sat by Pulse 88 88 81 L Oximetry 01/13/20 01/13/20 01/13/20 00:55 00:58 01:00 Temperature Pulse Rate 87 93 H 84 Respiratory 49 H 52 H 40 H Rate Blood Pressure O2 Sat by Pulse 85 89 77 L Oximetry 01/13/20 01/13/20 01/13/20 01:10 01:20 01:30 Temperature Pulse Rate 78 85 86 Respiratory 39 H 43 H 39 H Rate Blood Pressure 141/68 141/68 141/68 O2 Sat by Pulse 86 87 87 Oximetry 01/13/20 01/13/20 01/13/20 01:40 01:46 01:50 Temperature Pulse Rate 100 H 121 H 121 H Respiratory 36 H 41 H Rate Blood Pressure 174/85 174/85 174/85 O2 Sat by Pulse 96 58 L 66 L Oximetry 01/13/20 01/13/20 01/13/20 02:00 02:16 02:30 Temperature Pulse Rate 121 H 119 H 119 H Respiratory 35 H 48 H 35 H Rate Blood Pressure 174/85 133/65 200/110 O2 Sat by Pulse 66 L 64 L 47 L Oximetry 01/13/20 01/13/20 01/13/20 02:45 03:00 03:16 Temperature Pulse Rate 97 H 104 H Respiratory 20 40 H Rate Blood Pressure 109/59 114/57 112/67 O2 Sat by Pulse 47 L 85 Oximetry 01/13/20 01/13/20 01/13/20 03:30 03:45 03:48 Temperature 99.3 F Pulse Rate 92 H 95 H Respiratory 33 H 27 H Rate Blood Pressure 123/67 131/61 O2 Sat by Pulse 87 82 L Oximetry 01/13/20 01/13/20 01/13/20 03:50 04:00 04:10 Temperature 99.3 F Pulse Rate 96 H 92 H 90 Respiratory 26 H 25 H 24 Rate Blood Pressure 131/61 120/54 124/47 O2 Sat by Pulse 68 L 65 L 74 L Oximetry 01/13/20 01/13/20 01/13/20 04:20 04:30 04:40 Temperature Pulse Rate 90 89 86 Respiratory 24 24 24 Rate Blood Pressure 137/66 129/62 125/60 O2 Sat by Pulse 85 85 87 Oximetry 01/13/20 01/13/20 01/13/20 04:42 04:50 05:00 Temperature 99.3 F Pulse Rate 87 87 83 Respiratory 24 24 Rate Blood Pressure 141/65 133/59 132/59 O2 Sat by Pulse 88 89 91 Oximetry 01/13/20 01/13/20 01/13/20 05:10 05:20 05:30 Temperature Pulse Rate 82 83 96 H Respiratory 24 25 H 22 Rate Blood Pressure 128/59 118/61 130/64 O2 Sat by Pulse 92 93 94 Oximetry 01/13/20 01/13/20 01/13/20 05:40 05:50 06:00 Temperature Pulse Rate 85 80 80 Respiratory 24 28 H 28 H Rate Blood Pressure 137/63 137/64 130/70 O2 Sat by Pulse 89 91 93 Oximetry 01/13/20 01/13/20 01/13/20 06:10 06:20 06:30 Temperature Pulse Rate 78 79 78 Respiratory 28 H 28 H 28 H Rate Blood Pressure 137/67 124/68 131/66 O2 Sat by Pulse 94 96 97 Oximetry 01/13/20 01/13/20 01/13/20 06:40 06:50 07:00 Temperature Pulse Rate 80 79 80 Respiratory 28 H 28 H 28 H Rate Blood Pressure 135/71 135/68 134/71 O2 Sat by Pulse 97 97 98 Oximetry 01/13/20 01/13/20 01/13/20 07:07 07:10 07:20 Temperature Pulse Rate 79 78 78 Respiratory 28 H 28 H Rate Blood Pressure 134/74 142/71 134/74 O2 Sat by Pulse 98 98 99 Oximetry 01/13/20 01/13/20 01/13/20 07:30 07:40 07:50 Temperature Pulse Rate 76 77 76 Respiratory 28 H 28 H 28 H Rate Blood Pressure 135/71 136/76 134/75 O2 Sat by Pulse 99 99 99 Oximetry 01/13/20 01/13/20 01/13/20 08:00 08:10 08:11 Temperature 98.1 F Pulse Rate 73 73 Respiratory 28 H 28 H Rate Blood Pressure 142/71 145/74 O2 Sat by Pulse 99 99 Oximetry 01/13/20 01/13/20 01/13/20 08:20 08:30 08:40 Temperature Pulse Rate 74 68 70 Respiratory 28 H 28 H 28 H Rate Blood Pressure 136/75 137/78 139/74 O2 Sat by Pulse 99 100 100 Oximetry 01/13/20 01/13/20 08:50 09:00 Temperature Pulse Rate 70 67 Respiratory 28 H 28 H Rate Blood Pressure 140/77 143/79 O2 Sat by Pulse 99 99 Oximetry General appearance: Present: obese, other (orally intubation-sedated) - Respiratory Respiratory: bilateral: diminished - Cardiovascular Heart rate: 76 (irregular sometimes) Rhythm: regular (pt sedated-orally intubated) - Allied health notes Allied health notes reviewed: nursing - Labs CBC & Chem 7: 01/13/20 12:54 01/12/20 07:07 Labs: Abnormal lab results 01/12/20 01/13/20 01/13/20 Range/Units 09:00 01:02 04:45 D-Dimer (0-234) ng/mlDDU ABG pH 7.19 L (7.320-7.450) POC ABG pCO2 56.2 H (32.0-48.0) mmHg POC ABG pO2 44.3 L 62.5 L (83-108) mmHg ABG Oxyhemoglobin 77.5 L 86.5 L (94-98) POC Glucose (70-105) Lactate Dehydrogenase (91-180) units/L Coronavirus (PCR) Positive A (Negative) 01/13/20 01/13/20 01/13/20 Range/Units 05:10 05:10 05:54 D-Dimer > 35198 H (0-234) ng/mlDDU ABG pH (7.320-7.450) POC ABG pCO2 (32.0-48.0) mmHg POC ABG pO2 (83-108) mmHg ABG Oxyhemoglobin (94-98) POC Glucose 356 H (70-105) Lactate Dehydrogenase 999 H (91-180) units/L Coronavirus (PCR) (Negative)
[2020-01-13] MEDS: cefTRIAXone/NS 2 GM/100 ML 2 GM/100 ML BAG IV SCH (10:20)
[2020-01-13] MEDS: FAMOTIDINE 20 MG/2 ML INJ IV SCH ×2 (10:23→22:12)
[2020-01-13] MEDS: AZITHROMYCIN 500 MG in SODIUM CHLORIDE 0.9% 250ML 250 ML IV SCH (10:40)
[2020-01-13] MEDS ORDERED: HEPARIN 5,000 UNIT/1 ML VIAL SUB-Q SCH (11:15)
--- NOTE | 2020-01-13 11:28 | Consultation ---
History of Present Illness Consult date: 01/13/20 Requesting physician: BIJAN VERDE History of present illness: 39 YO Female with MO, Obesity Hypoventilation Syndrome, DM, Asthma presents to ED for evaluation. Patient states that she has experienced shortness of breath over the past 3 days with worsening symptoms over the past 1 day. Patient also acknowledges nonproductive cough, malaise, weakness, fatigue, decreased exercise tolerance, subjective fever and body aches. Patient states that she tested positive for coronavirus 8 days ago and has experienced worsening symptoms over the past 3 days. EMS was notified and upon arrival the patient was found to be in distress. Patient placed on submental oxygen and transported to [facility] for further care and evaluation. Patient seen and evaluated in the emergency department. Lab and imaging studies reviewed. Patient found to have a pulse oximetry of 80% on room air which is consistent with acute hypoxemic respiratory failure as well as a fever with a temperature of 101.3 F. Patient underwent chest x-ray which revealed bilateral pneumonia which was complicated by sepsis. Patient admitted to medical floor and initiated on pneumonia protocol as well as COVID-19 protocol as well as sepsis protocol. Patient denies chills, chest pain, palpitations, productive cough, skin rash, recent ill contacts. Patient acknowledges positive coronavirus infection She was admitted to [facility], but rapidly deteriorated with increasing oxygen requirements. Was placed on BIPAP- did not tolerate it with severe hypoxemia on arterial blood gas sampling. I made a decision to orally intubate. Patient has been transferred to the ICU. I am consulted for critical care management. Past History Past Medical History: diabetes Past Surgical History: No surgical history, Other (Reviewed) Social history: single. denies: smoking, alcohol abuse, prescription drug abuse Family history: diabetes, hypertension Medications and Allergies Allergies Allergy/AdvReac Type Severity Reaction Status Date / Time shellfish derived Allergy Swelling Verified 01/11/20 18:37 Home Medications Medication Instructions Recorded Confirmed Last Taken Type glipiZIDE [Glipizide] 10 mg PO DAILY #30 tablet 08/15/18 01/13/20 Unknown Rx Active Meds: Active Medications Acetaminophen (Tylenol) 650 mg PO Q4H PRN PRN Reason: Pain MILD(1-3)/Fever >100.5/CORDOVA Dexamethasone (Decadron) 6 mg IV Q24HR ASHISH Stop: 09/29/20 10:01 Enoxaparin Sodium (Enoxaparin) 120 mg SUB-Q Q12HR ASHISH Famotidine (Pepcid) 20 mg IV BID ASHISH Last Admin: 01/13/20 10:23 Dose: 20 mg Documented by: Fentanyl (Sublimaze) 50 mcg IV Q10MIN PRN PRN Reason: ANALGESIA Last Admin: 01/13/20 02:15 Dose: 50 mcg Documented by: Hydromorphone HCl (Dilaudid) 0.25 mg IV Q4H PRN PRN Reason: Pain, Moderate (4-6) Last Admin: 01/12/20 21:36 Dose: 0.25 mg Documented by: Hydrophilic Ointment (Vaseline Lip Therapy) 1 applic TP Q2HR PRN PRN Reason: Dry Lips Ceftriaxone Sodium (Rocephin/Ns 2 Gm/100 Ml) 2 gm in 100 mls @ 200 mls/hr IV Q24HR ASHISH; Protocol Last Admin: 01/13/20 10:20 Dose: 200 mls/hr Documented by: Fentanyl Citrate (Fentanyl Drip Premix) 2,000 mcg in 100 mls @ 5.69 mls/hr IV TITR ASHISH; Protocol Last Admin: 01/13/20 10:23 Dose: 3 mcg/kg/hr, 17.07 mls/hr Documented by: Midazolam HCl 100 mg/ Sodium (Chloride) 100 mls @ 2 mls/hr IV TITR ASHISH; Protocol Last Titration: 01/13/20 10:39 Dose: 1 mg/hr, 1 mls/hr Documented by: Propofol (Diprivan 10 Mg/Ml) 1,000 mg in 100 mls @ 3.414 mls/hr IV TITR ASHISH; Protocol Last Titration: 01/13/20 10:37 Dose: 10 mcg/kg/min, 6.828 mls/hr Documented by: Azithromycin 500 mg/ Sodium (Chloride) 250 mls @ 250 mls/hr IV Q24HR ASHISH Last Admin: 01/13/20 10:40 Dose: 250 mls/hr Documented by: Insulin Human Lispro (Humalog) 0 unit SUB-Q Q6H ASHISH; Protocol Midazolam HCl (Versed) 2 mg IV Q10MIN PRN PRN Reason: Sedation Multi-Ingred Cream/Lotion/Oil/Oint (Artificial Tears Ophth Oint) 1 applic OU Q4HR PRN PRN Reason: Dry Eye(s) Ondansetron HCl (Zofran) 4 mg IV Q8H PRN PRN Reason: Nausea And Vomiting Sodium Chloride (Sodium Chloride Flush Syringe 10 Ml) 10 ml IV BID ASHISH Last Admin: 01/12/20 22:38 Dose: 10 ml Documented by: Sodium Chloride (Sodium Chloride Flush Syringe 10 Ml) 10 ml IV PRN PRN PRN Reason: LINE FLUSH Review of Systems ROS unobtainable: due to endotracheal tube, due to mental status Physical Examination Vital signs: Vital Signs Pulse Ox 96 01/11/20 16:20 General appearance: appears uncomfortable, other (Morbidly obese AAW, proned ETT 7.5 ) Eyes: non-icteric ENT: oropharynx moist Neck: supple, no lymphadenopathy, no JVD Effort: very labored Ascultation: Bilateral: diminished breath sounds, rhonchi Cardiovascular: regular rate and rhythm, other Extremities: no cyanosis, no edema unable to assess other (sedated) Results - Laboratory Findings CBC and BMP: 01/13/20 12:54 01/14/20 09:47 ABG ABG pH 7.19 (7.320-7.450) L 01/13/20 04:45 POC ABG pCO2 56.2 mmHg (32.0-48.0) H 01/13/20 04:45 POC ABG pO2 62.5 mmHg (83-108) L 01/13/20 04:45 POC ABG HCO3 21.4 01/13/20 04:45 PT/INR, D-dimer D-Dimer > 16209 ng/mlDDU (0-234) H 01/13/20 05:10 Abnormal lab findings: Abnormal Labs 01/11/20 01/11/20 01/11/20 17:22 17:22 17:22 RBC MCV MCH RDW Lymph % (Auto) Seg Neutrophils % Seg Neutrophils # D-Dimer 622.52 H ABG pH POC ABG pCO2 POC ABG pO2 ABG Oxyhemoglobin Chloride 97.6 L Carbon Dioxide 18 L BUN Glucose 199 H POC Glucose Lactic Acid 2.20 H* Ferritin AST 68 H Lactate Dehydrogenase C-Reactive Protein Albumin 3.0 L Coronavirus (PCR) 01/11/20 01/11/20 01/11/20 17:22 17:22 23:29 RBC MCV MCH RDW Lymph % (Auto) Seg Neutrophils % Seg Neutrophils # D-Dimer ABG pH POC ABG pCO2 POC ABG pO2 ABG Oxyhemoglobin Chloride Carbon Dioxide BUN Glucose 202 H POC Glucose Lactic Acid 2.10 H* Ferritin 270.3 H AST Lactate Dehydrogenase 610 H C-Reactive Protein 23.80 H Albumin Coronavirus (PCR) 01/12/20 01/12/20 01/12/20 07:07 07:07 09:00 RBC 5.31 H MCV 76 L MCH 25 L RDW 15.5 H Lymph % (Auto) 11.2 L Seg Neutrophils % 85.2 H Seg Neutrophils # 9.2 H D-Dimer ABG pH POC ABG pCO2 POC ABG pO2 ABG Oxyhemoglobin Chloride Carbon Dioxide 21 L BUN 23 H Glucose 206 H POC Glucose Lactic Acid Ferritin AST Lactate Dehydrogenase C-Reactive Protein Albumin Coronavirus (PCR) Positive A 01/13/20 01/13/20 01/13/20 01:02 04:45 05:10 RBC MCV MCH RDW Lymph % (Auto) Seg Neutrophils % Seg Neutrophils # D-Dimer > 85506 H ABG pH 7.19 L POC ABG pCO2 56.2 H POC ABG pO2 44.3 L 62.5 L ABG Oxyhemoglobin 77.5 L 86.5 L Chloride Carbon Dioxide BUN Glucose POC Glucose Lactic Acid Ferritin AST Lactate Dehydrogenase C-Reactive Protein Albumin Coronavirus (PCR) 01/13/20 01/13/20 05:10 05:54 RBC MCV MCH RDW Lymph % (Auto) Seg Neutrophils % Seg Neutrophils # D-Dimer ABG pH POC ABG pCO2 POC ABG pO2 ABG Oxyhemoglobin Chloride Carbon Dioxide BUN Glucose POC Glucose 356 H Lactic Acid Ferritin AST Lactate Dehydrogenase 999 H C-Reactive Protein Albumin Coronavirus (PCR) - Diagnostic Findings Chest x-ray: image reviewed (Low lung volumes, bialteral alveoalr infiltrates, ETT in position) Assessment and Plan Acute hypoxemic respiratory failure orally intubated on MVS Severe COVID infection Multifocal pneumonia Extreme obesity ARACELI- vasomotor nephropathy/COVID Critical care proning per protocol - VAP bundle addressed -CXR, ABG in am -Therapeutic anticoagulation with Lovenox -Permissive hypercapnia is acceptable - continue bronchodilators with pulmonary hygiene per RT -Monitor airway pressures, lung protective strategies - continue to avoid benzodiazepines, reduce the possibility of delirium - prn analgesia per CPOT score - sedation prn for target RASS -2 to -3 - Continue to wean supplemental oxygen for target O2 sats > 92% - conservative fluid management measures as tolerated by hemodynamics and renal function - Bronchodilators with pulmonary hygiene per RT -Antibiotics for CAP , consulted ID - Accuchecks with glycemic control per SSI (While critically ill target blood glucose of 140-180 mg/dL; avoid hypoglycemia) - Maintenance of sleep-wake cycle, avoid delirium - Avoid nephrotoxins, closely monitor renal function, renally dose all medications - Aspiration precautions, HOB >40 -Stress ulcer prophylaxis -Place NGT/small bowel feeding tube to initiate enteric nutritional support - Mobility protocol, off loading and skin assessment for pressure ulcer prevention - Monitor hemodynamics closely - Supportive transfusions as indicated to keep HgB >7g/dL COVID SPECIFIC INTERVENTIONS -Airborne, contact isolation for COVID per facility protocols -IV steroids-dexamethasone -Trend d-dimer,and other inflammatory markers per facility protocol -Evaluate for Convalescent plasma therapy Discussed with the ICU team-RT,RN Life threatening condition- COVID 19 ARDS acute hypoxemic respiratory failure on MVS Mortality/Morbidity- High Complexity of medical decision making- High CONDITION: CRITICAL PROGNOSIS: GUARDED CODE STATUS: FULL CODE The high probability of a clinically significant, sudden or life-threatening deterioration of the [respiratory & neurology, renal ] system(s) required my full and direct attention, intervention and personal management. The aggregate critical care time was [45] minutes without overlap. Time includes spent on; [x] Data Review and interpretation [x] Patient assessment and monitoring of vital signs [x] Documentation [x] Medication orders and management
[2020-01-13] MEDS: INSULIN LISPRO 100 UNIT/ML VIAL 3 mL SUB-Q SCH ×2 (13:30→18:35)
[2020-01-13] MEDS: ENOXAPARIN 120 MG/0.8 ML INJ SUB-Q SCH ×2 (13:31→22:12)
[2020-01-13] MEDS: dexAMETHasone 4 MG/ML VIAL IV SCH (13:31)
[2020-01-13 13:48] LABS: Hematocrit 36.7 % (30.3-42.9); Hemoglobin 12.1 gm/dl (10.1-14.3); Mean Corpuscular HGB Conc 33 % (30-34); Mean Corpuscular Volume 76 fl (79-97); Platelet Count 113 K/mm3 (140-440); Red Blood Count 4.86 M/mm3 (3.65-5.03); Red Cell Distribution Width 15.8 % (13.2-15.2)
[2020-01-13 14:40] LABS: Basophils % (Manual) 0 % (0.0-1.8); Eosinophils % (Manual) 0 % (0.0-4.3); RBC Morphology Normal; Total Cells Counted 100
--- NOTE | 2020-01-13 16:03 | Consultation ---
History of Present Illness - Reason for Consult Consult date: 01/13/20 - History of Present Illness 39-year-old female past medical history diabetes, obesity, asthma admitted to hospital shortness of breath. She notes that the symptoms began approximately 3 days prior to admission and became progressively worse for the past 1 day. She is currently intubated, especially history is obtained from the chart. She also complained of cough, malaise, fatigue, fevers and myalgias. She had tested positive for COVID-19 approximately 8 days prior to admission. Febrile to 101.3 on admission, now normal. White count is 14. COVID-19 testing in-house positive. Currently on ceftriaxone, azithromycin, dexamethasone. Procalcitonin mildly elevated at 0.33. Blood and urine cultures currently pe nding. She is currently intubated. Imaging personally reviewed: Chest x-ray: Bilateral pneumonia. Past History Past Medical History: diabetes Past Surgical History: No surgical history, Other (Reviewed) Social history: single. denies: smoking, alcohol abuse, prescription drug abuse Family history: diabetes, hypertension Medications and Allergies Allergies Allergy/AdvReac Type Severity Reaction Status Date / Time shellfish derived Allergy Swelling Verified 01/11/20 18:37 Home Medications Medication Instructions Recorded Confirmed Last Taken Type glipiZIDE [Glipizide] 10 mg PO DAILY #30 tablet 08/15/18 01/13/20 Unknown Rx Active Meds: Active Medications Acetaminophen (Tylenol) 650 mg PO Q4H PRN PRN Reason: Pain MILD(1-3)/Fever >100.5/CORDOVA Dexamethasone (Decadron) 6 mg IV Q24HR [facility] Stop: 01/22/20 10:01 Last Admin: 01/13/20 13:31 Dose: 6 mg Documented by: Enoxaparin Sodium (Enoxaparin) 120 mg SUB-Q Q12HR [facility] Last Admin: 01/13/20 13:31 Dose: 120 mg Documented by: Famotidine (Pepcid) 20 mg IV BID [facility] Last Admin: 01/13/20 10:23 Dose: 20 mg Documented by: Fentanyl (Sublimaze) 50 mcg IV Q10MIN PRN PRN Reason: ANALGESIA Last Admin: 01/13/20 02:15 Dose: 50 mcg Documented by: Hydromorphone HCl (Dilaudid) 0.25 mg IV Q4H PRN PRN Reason: Pain, Moderate (4-6) Last Admin: 01/12/20 21:36 Dose: 0.25 mg Documented by: Hydrophilic Ointment (Vaseline Lip Therapy) 1 applic TP Q2HR PRN PRN Reason: Dry Lips Ceftriaxone Sodium (Rocephin/Ns 2 Gm/100 Ml) 2 gm in 100 mls @ 200 mls/hr IV Q24HR [facility]; Protocol Last Admin: 01/13/20 10:20 Dose: 200 mls/hr Documented by: Fentanyl Citrate (Fentanyl Drip Premix) 2,000 mcg in 100 mls @ 5.69 mls/hr IV TITR [facility]; Protocol Last Titration: 01/13/20 13:37 Dose: 2 mcg/kg/hr, 11.38 mls/hr Documented by: Midazolam HCl 100 mg/ Sodium (Chloride) 100 mls @ 2 mls/hr IV TITR [facility]; Protocol Last Titration: 01/13/20 10:39 Dose: 1 mg/hr, 1 mls/hr Documented by: Propofol (Diprivan 10 Mg/Ml) 1,000 mg in 100 mls @ 3.414 mls/hr IV TITR [facility]; Protocol Last Titration: 01/13/20 10:37 Dose: 10 mcg/kg/min, 6.828 mls/hr Documented by: Azithromycin 500 mg/ Sodium (Chloride) 250 mls @ 250 mls/hr IV Q24HR [facility] Last Admin: 01/13/20 10:40 Dose: 250 mls/hr Documented by: Insulin Human Lispro (Humalog) 0 unit SUB-Q Q6H [facility]; Protocol Last Admin: 01/13/20 13:30 Dose: 8 unit Documented by: Midazolam HCl (Versed) 2 mg IV Q10MIN PRN PRN Reason: Sedation Multi-Ingred Cream/Lotion/Oil/Oint (Artificial Tears Ophth Oint) 1 applic OU Q4HR PRN PRN Reason: Dry Eye(s) Ondansetron HCl (Zofran) 4 mg IV Q8H PRN PRN Reason: Nausea And Vomiting Sodium Chloride (Sodium Chloride Flush Syringe 10 Ml) 10 ml IV BID [facility] Last Admin: 01/13/20 13:33 Dose: 10 ml Documented by: Sodium Chloride (Sodium Chloride Flush Syringe 10 Ml) 10 ml IV PRN PRN PRN Reason: LINE FLUSH Review of Systems ROS unobtainable: due to endotracheal tube Physical Examination - Physical Exam Narrative exam: Physical exam deferred due to PPE conservation strategy. Please refer to primary team's note. - Constitutional Vitals: Vital Signs Temp Pulse Resp BP Pulse Ox 98.6 F 55 L 30 H 141/75 100 01/13/20 12:11 01/13/20 15:20 01/13/20 15:20 01/13/20 15:20 01/13/20 15:20 Temperature -Last 24 Hours Temperature 98.6 F Temperature 98.1 F Temperature 99.3 F Temperature 99.3 F Temperature 99.3 F Temperature 99.0 F Temperature 98.7 F Results - Labs CBC & Chem 7: 01/13/20 12:54 01/12/20 07:07 Labs: Abnormal lab results 01/13/20 01/13/20 01/13/20 Range/Units 01:02 04:45 05:10 WBC (4.5-11.0) K/mm3 MCV (79-97) fl MCH (28-32) pg RDW (13.2-15.2) % Plt Count (140-440) K/mm3 Seg Neuts % (Manual) (40.0-70.0) % Lymphocytes % (Manual) (13.4-35.0) % Seg Neutrophils # Man (1.8-7.7) K/mm3 Lymphocytes # (Manual) (1.2-5.4) K/mm3 D-Dimer > 51213 H (0-234) ng/mlDDU ABG pH 7.19 L (7.320-7.450) POC ABG pCO2 56.2 H (32.0-48.0) mmHg POC ABG pO2 44.3 L 62.5 L (83-108) mmHg ABG Oxyhemoglobin 77.5 L 86.5 L (94-98) POC Glucose (70-105) Lactate Dehydrogenase (91-180) units/L 01/13/20 01/13/20 01/13/20 Range/Units 05:10 05:54 12:07 WBC (4.5-11.0) K/mm3 MCV (79-97) fl MCH (28-32) pg RDW (13.2-15.2) % Plt Count (140-440) K/mm3 Seg Neuts % (Manual) (40.0-70.0) % Lymphocytes % (Manual) (13.4-35.0) % Seg Neutrophils # Man (1.8-7.7) K/mm3 Lymphocytes # (Manual) (1.2-5.4) K/mm3 D-Dimer (0-234) ng/mlDDU ABG pH (7.320-7.450) POC ABG pCO2 (32.0-48.0) mmHg POC ABG pO2 (83-108) mmHg ABG Oxyhemoglobin (94-98) POC Glucose 356 H 309 H (70-105) Lactate Dehydrogenase 999 H (91-180) units/L 01/13/20 Range/Units 12:54 WBC 14.0 H (4.5-11.0) K/mm3 MCV 76 L (79-97) fl MCH 25 L (28-32) pg RDW 15.8 H (13.2-15.2) % Plt Count 113 L (140-440) K/mm3 Seg Neuts % (Manual) 88.0 H (40.0-70.0) % Lymphocytes % (Manual) 2.0 L (13.4-35.0) % Seg Neutrophils # Man 12.3 H (1.8-7.7) K/mm3 Lymphocytes # (Manual) 0.3 L (1.2-5.4) K/mm3 D-Dimer (0-234) ng/mlDDU ABG pH (7.320-7.450) POC ABG pCO2 (32.0-48.0) mmHg POC ABG pO2 (83-108) mmHg ABG Oxyhemoglobin (94-98) POC Glucose (70-105) Lactate Dehydrogenase (91-180) units/L Assessment and Plan Cultures: Blood culture 01/11/2020 pending Urine culture 01/11/2020 pending A/P: 39-year-old female past medical history morbid obesity, diabetes admitted with severe COVID-19 pneumonia. #Acute hypoxemic respiratory failure: Likely secondary to COVID-19 infection. Currently mechanically ventilated #COVID-19 pneumonia: Initially diagnosed 8 days prior to admission. Likely at the tail end of efficacy of Remdesivir, will start given critically ill. #Morbid obesity: Associated with worse COVID-19 outcomes #Transaminitis: Likely related to COVID-19 Recs: -Continue dexamethasone 6 mg IV/PO daily to complete 10 days -Start Remdesivir 200 mg IV q day x 1 followed by 100 mg IV q day x 4 days. CrCl>30. Pharmacy notified. -Continue ceftriaxone 2 gm IV qday and azithromycin 500 mg PO qday to complete 5 and 3 days respectively. -Obtain daily inflammatory markers - ferritin, Ddimer, CRP, LDH -Anticoagulation per [facility] protocol Thank you for the consult, we will continue to follow. Dr. Robertson taking over tomorrow Randi Shah MD [facility] M: [phone] O: [phone] F: [phone]
[2020-01-13] MEDS ORDERED: REMDESIVIR 100 MG VIAL IV ONE (17:00)
[2020-01-13] MEDS ORDERED: REMDESIVIR 200 MG in SODIUM CHLORIDE 0.9% 250ML 250 ML IV ONE (17:00)
[2020-01-13] MEDS: SODIUM CHLORIDE 0.9% 50 ML IVPB IV SCH (18:11)
--- NOTE | 2020-01-13 18:45 | XRay Report ---
SUPINE ABDOMEN INDICATION: NG Tube Placement. COMPARISON: No relevant prior imaging study available. FINDINGS: Nasogastric tube tip is in the distal stomach at the pylorus. Dilated loops of small bowel are noted. IMPRESSION: 1. NG tube in satisfactory position. Signer Name: Vinny Gray MD Signed: 01/13/2020 6:41 PM Workstation Name: [id number]
[2020-01-13 19:25] LABS: ABG Base Excess -2.7 mmol/L (-2.0-3.0); ABG HCO3 24.3 mmol/L (20.0-26.0); ABG Methemoglobin 0.4 % (0.0-1.5); ABG Oxygen Saturation 88.6 % (95.0-99.0); ABG PCO2 51.7 mm Hg; ABG PH 7.29 pH Units (7.350-7.450); ABG PO2 60.2 mm Hg (80.0-90.0)
[2020-01-14] MEDS: INSULIN LISPRO 100 UNIT/ML VIAL 3 mL SUB-Q SCH ×4 (00:35→18:12)
[2020-01-14 01:27] LABS: Alanine Aminotransferase 36 units/L (7-56); Albumin 3.1 g/dL (3.9-5); BUN/Creatinine Ratio 34; Blood Urea Nitrogen 55 mg/dL (7-17); Calcium 8.7 mg/dL (8.4-10.2); Hemolysis Index 0
--- NOTE | 2020-01-14 03:02 | XRay Report ---
CHEST 1 VIEW 01/14/2020 2:23 AM INDICATION / CLINICAL INFORMATION: follow up respiratory failure. COMPARISON: 01/13/2020 FINDINGS: SUPPORT DEVICES: Endotracheal nasogastric tubes again project in expected position HEART / MEDIASTINUM: No significant abnormality. LUNGS / PLEURA: Mild bilateral parenchymal disease has improved. No pneumothorax. ADDITIONAL FINDINGS: No significant additional findings. IMPRESSION: 1. Resolving bilateral pneumonia Signer Name: Silvio Pruitt MD Signed: 01/14/2020 2:57 AM Workstation Name: [id number] [place]
[2020-01-14] MEDS: fentaNYL DRIP Premix 2,000 MCG/100 ML BAG IV SCH ×3 (03:28→23:00)
[2020-01-14 04:25] LABS: ABG Base Excess -2.7 mmol/L (-2.0-3.0); ABG HCO3 22.5 mmol/L (20.0-26.0); ABG Methemoglobin 0.4 % (0.0-1.5); ABG Oxygen Saturation 98.5 % (95.0-99.0); ABG PCO2 40.5 mm Hg; ABG PH 7.363 pH Units (7.350-7.450); ABG PO2 132.6 mm Hg (80.0-90.0)
[2020-01-14 06:53] LABS: Calcium 8.7 mg/dL (8.4-10.2)
--- NOTE | 2020-01-14 08:08 | Progress Note ---
Assessment and Plan Cultures: Blood culture 01/11/2020 no growth today Urine culture 01/11/2020 10-100,000 normal skin cristina Tracheal aspirate a 01/13/2020 no growth today A/P: 39-year-old female past medical history morbid obesity, diabetes admitted with severe COVID-19 pneumonia. #Acute hypoxemic respiratory failure: Likely secondary to COVID-19 infection. remains mechanically ventilated #COVID-19 pneumonia: Initially diagnosed 8 days prior to admission. Likely at the tail end of efficacy of Remdesivir. Very high ddimer. Elevated markers. #Morbid obesity: BMI=52. Associated with worse COVID-19 outcomes #Transaminitis: Likely related to COVID-19. Improving. #Bacteriuria, urine analysis not consistent with UTI #ARACELI: worsening Recs: -Consider COVID convalescent plasma -Continue dexamethasone 6 mg IV/PO daily to complete 10 days -Continue Remdesivir day 2 of 5. CrCl=84 >30. -Continue ceftriaxone 2 gm IV qday and azithromycin 500 mg PO qday to complete 5 and 3 days respectively. -Obtain daily inflammatory markers - ferritin, Ddimer, CRP, LDH -Anticoagulation per [facility] protocol - agree with full dose anticoagulation-ddimer>10,000 Jenifer Robertson MD [facility] ([facility]) Office [phone] Subjective Date of service: 01/14/20 Principal diagnosis: Shortness of breath Interval history: Remains intubated, no fever, no tachycardia, no need for pressors Objective - Exam Narrative Exam: Physical Exam: reviewed ED and hospitalist notes, limited due to conservation of PPE General appearance: limited due to conservation of PPE Eyes: limited due to conservation of PPE HENT: Atraumatic; limited due to conservation of PPE Lungs: limited due to conservation of PPE CV: limited due to conservation of PPE Abdomen: limited due to conservation of PPE Extremities: limited due to conservation of PPE Skin: limited due to conservation of PPE Psych: limited due to conservation of PPE Neuro: limited due to conservation of PPE - Constitutional Vitals: Vital Signs Temp Pulse Resp BP Pulse Ox 98.7 F 70 30 H 128/78 97 01/14/20 04:00 01/14/20 07:20 01/14/20 06:46 01/14/20 07:20 01/14/20 07:20 Temperature -Last 24 Hours Temperature 98.7 F Temperature 98.7 F Temperature 98.8 F Temperature 98.0 F Temperature 98.6 F Temperature 98.1 F - Labs CBC & Chem 7: 01/13/20 12:54 01/14/20 06:06 Labs: Abnormal lab results 01/13/20 01/13/20 01/13/20 Range/Units 12:07 12:54 18:46 WBC 14.0 H (4.5-11.0) K/mm3 MCV 76 L (79-97) fl MCH 25 L (28-32) pg RDW 15.8 H (13.2-15.2) % Plt Count 113 L (140-440) K/mm3 Seg Neuts % (Manual) 88.0 H (40.0-70.0) % Lymphocytes % (Manual) 2.0 L (13.4-35.0) % Seg Neutrophils # Man 12.3 H (1.8-7.7) K/mm3 Lymphocytes # (Manual) 0.3 L (1.2-5.4) K/mm3 ABG pH (7.350-7.450) pH Units ABG pO2 (80.0-90.0) mm Hg ABG O2 Saturation (95.0-99.0) % ABG Base Excess (-2.0-3.0) mmol/L Oxyhemoglobin (95.0-99.0) % Potassium (3.6-5.0) mmol/L Chloride (98-107) mmol/L Carbon Dioxide (22-30) mmol/L BUN (7-17) mg/dL Creatinine (0.6-1.2) mg/dL Glucose (65-100) mg/dL POC Glucose 309 H 268 H (70-105) AST (5-40) units/L Total Protein (6.3-8.2) g/dL Albumin (3.9-5) g/dL 01/13/20 01/13/20 01/14/20 Range/Units 18:50 23:53 00:31 WBC (4.5-11.0) K/mm3 MCV (79-97) fl MCH (28-32) pg RDW (13.2-15.2) % Plt Count (140-440) K/mm3 Seg Neuts % (Manual) (40.0-70.0) % Lymphocytes % (Manual) (13.4-35.0) % Seg Neutrophils # Man (1.8-7.7) K/mm3 Lymphocytes # (Manual) (1.2-5.4) K/mm3 ABG pH 7.290 L (7.350-7.450) pH Units ABG pO2 60.2 L (80.0-90.0) mm Hg ABG O2 Saturation 88.6 L (95.0-99.0) % ABG Base Excess -2.7 L (-2.0-3.0) mmol/L Oxyhemoglobin 87.1 L (95.0-99.0) % Potassium 5.3 H (3.6-5.0) mmol/L Chloride (98-107) mmol/L Carbon Dioxide (22-30) mmol/L BUN 55 H (7-17) mg/dL Creatinine 1.6 H (0.6-1.2) mg/dL Glucose 268 H (65-100) mg/dL POC Glucose 259 H (70-105) AST 46 H (5-40) units/L Total Protein 6.1 L (6.3-8.2) g/dL Albumin 3.1 L (3.9-5) g/dL 01/14/20 01/14/20 01/14/20 Range/Units 03:13 05:23 06:06 WBC (4.5-11.0) K/mm3 MCV (79-97) fl MCH (28-32) pg RDW (13.2-15.2) % Plt Count (140-440) K/mm3 Seg Neuts % (Manual) (40.0-70.0) % Lymphocytes % (Manual) (13.4-35.0) % Seg Neutrophils # Man (1.8-7.7) K/mm3 Lymphocytes # (Manual) (1.2-5.4) K/mm3 ABG pH (7.350-7.450) pH Units ABG pO2 132.6 H (80.0-90.0) mm Hg ABG O2 Saturation (95.0-99.0) % ABG Base Excess -2.7 L (-2.0-3.0) mmol/L Oxyhemoglobin (95.0-99.0) % Potassium 5.5 H (3.6-5.0) mmol/L Chloride 107.6 H (98-107) mmol/L Carbon Dioxide 21 L (22-30) mmol/L BUN 58 H (7-17) mg/dL Creatinine 1.7 H (0.6-1.2) mg/dL Glucose 231 H (65-100) mg/dL POC Glucose 231 H (70-105) AST (5-40) units/L Total Protein (6.3-8.2) g/dL Albumin (3.9-5) g/dL
--- NOTE | 2020-01-14 09:51 | Progress Note ---
Assessment and Plan Assessment and plan: Acute hypoxic respiratory failure. Etiology likely secondary to COVID-19 infection. Patient remains on mechanical ventilation. Pulmonary following. COVID-19 pneumonia. Patient was initially diagnosed 8 days prior to admission. Patient has high d-dimer and inflammatory markers. ID following. Continue dexamethasone 6 mg IV for completion of 10 days. Continue remdesivir. Continue to trend inflammatory markers. Full dose anticoagulation given the high d- dimer. Sepsis. Etiology secondary to above. Continue IV antibiotics of ceftriaxone and azithromycin. Morbid obesity. Elevated LFTs/transaminitis. Etiology likely secondary to sepsis/COVID-19 Acute kidney injury. Etiology secondary to sepsis/ATN. Nephrology consultation Hyperkalemia. Etiology likely secondary to above. Kayexalate x1. The high probability of a clinically significant, sudden or life threatening deterioration of the [respiratory and immunologic] system(s) required my full and direct attention, intervention and personal management. The aggregate critical care time was [33] minutes. This time is in addition to time spent performing reported procedures but includes the following: [x] Data Review and interpretation [x] Patient assessment and monitoring of vital signs [x] Documentation [x] Medication orders and management History Interval history: No new issues overnight. Hospitalist Physical - Constitutional Vitals: Temp Pulse Resp BP Pulse Ox 98.4 F 54 L 30 H 137/83 98 01/14/20 08:00 01/14/20 09:30 01/14/20 09:30 01/14/20 09:30 01/14/20 09:30 General appearance: Present: obese, other (orally intubation-sedated) - EENT Eyes: Present: PERRL, EOM intact ENT: hearing intact, clear oral mucosa, dentition normal - Neck Neck: Present: supple, normal ROM - Respiratory Respiratory effort: normal Respiratory: bilateral: CTA - Cardiovascular Rhythm: regular Heart Sounds: Present: S1 & S2. Absent: gallop, rub - Extremities Extremities: no ischemia, No edema, Full ROM - Abdominal General gastrointestinal: soft, non-tender, non-distended, normal bowel sounds - Integumentary Integumentary: Present: clear, warm, dry - Neurologic Neurologic: CNII-XII intact, moves all extremities Results - Labs CBC & Chem 7: 01/13/20 12:54 01/14/20 06:06 Labs: Laboratory Last Values WBC 14.0 K/mm3 (4.5-11.0) H 01/13/20 12:54 RBC 4.86 M/mm3 (3.65-5.03) 01/13/20 12:54 Hgb 12.1 gm/dl (10.1-14.3) 01/13/20 12:54 Hct 36.7 % (30.3-42.9) 01/13/20 12:54 MCV 76 fl (79-97) L 01/13/20 12:54 MCH 25 pg (28-32) L 01/13/20 12:54 MCHC 33 % (30-34) 01/13/20 12:54 RDW 15.8 % (13.2-15.2) H 01/13/20 12:54 Plt Count 113 K/mm3 (140-440) L 01/13/20 12:54 Lymph % (Auto) 11.2 % (13.4-35.0) L 01/12/20 07:07 [place] % (Auto) 3.5 % (0.0-7.3) 01/12/20 07:07 Eos % (Auto) 0.0 % (0.0-4.3) 01/12/20 07:07 Baso % (Auto) 0.1 % (0.0-1.8) 01/12/20 07:07 Lymph # 1.2 K/mm3 (1.2-5.4) 01/12/20 07:07 [place] # 0.4 K/mm3 (0.0-0.8) 01/12/20 07:07 Eos # 0.0 K/mm3 (0.0-0.4) 01/12/20 07:07 Baso # 0.0 K/mm3 (0.0-0.1) 01/12/20 07:07 Add Manual Diff Complete 01/13/20 12:54 Total Counted 100 01/13/20 12:54 Seg Neutrophils % 85.2 % (40.0-70.0) H 01/12/20 07:07 Seg Neuts % (Manual) 88.0 % (40.0-70.0) H 01/13/20 12:54 Band Neutrophils % 7.0 % 01/13/20 12:54 Lymphocytes % (Manual) 2.0 % (13.4-35.0) L 01/13/20 12:54 Reactive Lymphs % (Man) 0 % 01/13/20 12:54 Monocytes % (Manual) 3.0 % (0.0-7.3) 01/13/20 12:54 Eosinophils % (Manual) 0 % (0.0-4.3) 01/13/20 12:54 Basophils % (Manual) 0 % (0.0-1.8) 01/13/20 12:54 Metamyelocytes % 0 % 01/13/20 12:54 Myelocytes % 0 % 01/13/20 12:54 Promyelocytes % 0 % 01/13/20 12:54 Blast Cells % 0 % 01/13/20 12:54 Nucleated RBC % Not Reportable 01/13/20 12:54 Seg Neutrophils # 9.2 K/mm3 (1.8-7.7) H 01/12/20 07:07 Seg Neutrophils # Man 12.3 K/mm3 (1.8-7.7) H 01/13/20 12:54 Band Neutrophils # 1.0 K/mm3 01/13/20 12:54 Lymphocytes # (Manual) 0.3 K/mm3 (1.2-5.4) L 01/13/20 12:54 Abs React Lymphs (Man) 0.0 K/mm3 01/13/20 12:54 Monocytes # (Manual) 0.4 K/mm3 (0.0-0.8) 01/13/20 12:54 Eosinophils # (Manual) 0.0 K/mm3 (0.0-0.4) 01/13/20 12:54 Basophils # (Manual) 0.0 K/mm3 (0.0-0.1) 01/13/20 12:54 Metamyelocytes # 0.0 K/mm3 01/13/20 12:54 Myelocytes # 0.0 K/mm3 01/13/20 12:54 Promyelocytes # 0.0 K/mm3 01/13/20 12:54 Blast Cells # 0.0 K/mm3 01/13/20 12:54 WBC Morphology Not Reportable 01/13/20 12:54 WBC Morphology TNR 01/13/20 12:54 Hypersegmented Neuts Not Reportable 01/13/20 12:54 Hyposegmented Neuts Not Reportable 01/13/20 12:54 Hypogranular Neuts Not Reportable 01/13/20 12:54 Smudge Cells Not Reportable 01/13/20 12:54 Toxic Granulation Not Reportable 01/13/20 12:54 Toxic Vacuolation Not Reportable 01/13/20 12:54 Dohle Bodies Not Reportable 01/13/20 12:54 Pelger-Huet Anomaly Not Reportable 01/13/20 12:54 Shanti Rods Not Reportable 01/13/20 12:54 Platelet Estimate Not Reportable 01/13/20 12:54 Clumped Platelets Not Reportable 01/13/20 12:54 Plt Clumps, EDTA Not Reportable 01/13/20 12:54 Large Platelets Not Reportable 01/13/20 12:54 Giant Platelets Not Reportable 01/13/20 12:54 Platelet Satelliting Not Reportable 01/13/20 12:54 Plt Morphology Comment Not Reportable 01/13/20 12:54 RBC Morphology Normal 01/13/20 12:54 Dimorphic RBCs Not Reportable 01/13/20 12:54 Polychromasia Not Reportable 01/13/20 12:54 Hypochromasia Not Reportable 01/13/20 12:54 Poikilocytosis Not Reportable 01/13/20 12:54 Anisocytosis Not Reportable 01/13/20 12:54 Microcytosis Not Reportable 01/13/20 12:54 Macrocytosis Not Reportable 01/13/20 12:54 Spherocytes Not Reportable 01/13/20 12:54 Pappenheimer Bodies Not Reportable 01/13/20 12:54 Sickle Cells Not Reportable 01/13/20 12:54 Target Cells Not Reportable 01/13/20 12:54 Tear Drop Cells Not Reportable 01/13/20 12:54 Ovalocytes Not Reportable 01/13/20 12:54 Helmet Cells Not Reportable 01/13/20 12:54 Luevano-Rexford Bodies Not Reportable 01/13/20 12:54 Wells Rings Not Reportable 01/13/20 12:54 Franco Cells Not Reportable 01/13/20 12:54 Bite Cells Not Reportable 01/13/20 12:54 Crenated Cell Not Reportable 01/13/20 12:54 Elliptocytes Not Reportable 01/13/20 12:54 Acanthocytes (Spur) Not Reportable 01/13/20 12:54 Rouleaux Not Reportable 01/13/20 12:54 Hemoglobin C Crystals Not Reportable 01/13/20 12:54 Schistocytes Not Reportable 01/13/20 12:54 Malaria parasites Not Reportable 01/13/20 12:54 Gurmeet Bodies Not Reportable 01/13/20 12:54 Hem Pathologist Commnt No 01/13/20 12:54 D-Dimer > 86436 ng/mlDDU (0-234) H 01/13/20 05:10 ABG pH 7.363 pH Units (7.350-7.450) 01/14/20 03:13 POC ABG pCO2 56.2 mmHg (32.0-48.0) H 01/13/20 04:45 ABG pCO2 40.5 mm Hg 01/14/20 03:13 POC ABG pO2 62.5 mmHg (83-108) L 01/13/20 04:45 ABG pO2 132.6 mm Hg (80.0-90.0) H 01/14/20 03:13 POC ABG HCO3 21.4 01/13/20 04:45 ABG HCO3 22.5 mmol/L (20.0-26.0) 01/14/20 03:13 ABG O2 Saturation 98.5 % (95.0-99.0) 01/14/20 03:13 ABG O2 Content 16.8 (0.0-44) 01/14/20 03:13 POC ABG Base Excess -7.1 01/13/20 04:45 ABG Base Excess -2.7 mmol/L (-2.0-3.0) L 01/14/20 03:13 ABG Hemoglobin 12.1 gm/dl (12.0-16.0) 01/14/20 03:13 ABG Oxyhemoglobin 86.5 (94-98) L 01/13/20 04:45 ABG Carboxyhemoglobin 1.1 % (0.0-5.0) 01/14/20 03:13 ABG Methemoglobin 0.4 % (0.0-1.5) 01/14/20 03:13 Oxyhemoglobin 97.0 % (95.0-99.0) 01/14/20 03:13 Carboxyhemoglobin 0.9 (0.5-1.5) 01/13/20 04:45 FiO2 65 % 01/14/20 03:13 Sodium 145 mmol/L (137-145) 01/14/20 06:06 Potassium 5.5 mmol/L (3.6-5.0) H 01/14/20 06:06 Chloride 107.6 mmol/L (98-107) H 01/14/20 06:06 Carbon Dioxide 21 mmol/L (22-30) L 01/14/20 06:06 Anion Gap 22 mmol/L 01/14/20 06:06 BUN 58 mg/dL (7-17) H 01/14/20 06:06 Creatinine 1.7 mg/dL (0.6-1.2) H 01/14/20 06:06 Estimated GFR 41 ml/min 01/14/20 06:06 BUN/Creatinine Ratio 34 % 01/14/20 06:06 Glucose 231 mg/dL (65-100) H 01/14/20 06:06 POC Glucose 231 (70-105) H 01/14/20 05:23 Lactic Acid 1.40 mmol/L (0.7-2.0) 01/12/20 07:07 Calcium 8.7 mg/dL (8.4-10.2) 01/14/20 06:06 Ferritin 270.3 ng/mL (10.0-200.0) H 01/11/20 17:22 Total Bilirubin < 0.20 mg/dL (0.1-1.2) 01/14/20 00:31 AST 46 units/L (5-40) H 01/14/20 00:31 ALT 36 units/L (7-56) 01/14/20 00:31 Alkaline Phosphatase 108 units/L (35-129) 01/14/20 00:31 Lactate Dehydrogenase 999 units/L (91-180) H 01/13/20 05:10 C-Reactive Protein 23.80 mg/dL (0.00-1.30) H 01/11/20 17:22 Total Protein 6.1 g/dL (6.3-8.2) L 01/14/20 00:31 Albumin 3.1 g/dL (3.9-5) L 01/14/20 00:31 Albumin/Globulin Ratio 1.0 % 01/14/20 00:31 Procalcitonin 0.33 ng/mL (<0.15) 01/11/20 17:22 Urine Color Yellow (Yellow) 01/11/20 21:50 Urine Turbidity Clear (Clear) 01/11/20 21:50 Urine pH 6.0 (5.0-7.0) 01/11/20 21:50 Ur Specific [place] 1.030 (1.003-1.030) 01/11/20 21:50 Urine Protein >500 mg/dL (Negative) 01/11/20 21:50 Urine Glucose (UA) >=500 mg/dL (Negative) 01/11/20 21:50 Urine Ketones 20 mg/dL (Negative) 01/11/20 21:50 Urine Blood Mod (Negative) 01/11/20 21:50 Urine Nitrite Neg (Negative) 01/11/20 21:50 Urine Bilirubin Neg (Negative) 01/11/20 21:50 Urine Urobilinogen < 2.0 mg/dL (<2.0) 01/11/20 21:50 Ur Leukocyte Esterase Neg (Negative) 01/11/20 21:50 Urine WBC (Auto) 3.0 /HPF (0.0-6.0) 01/11/20 21:50 Urine RBC (Auto) 1.0 /HPF (0.0-6.0) 01/11/20 21:50 U Epithel Cells (Auto) < 1.0 /HPF (0-13.0) 01/11/20 21:50 Urine Bacteria (Auto) 1+ /HPF (Negative) 01/11/20 21:50 Coronavirus (PCR) Positive (Negative) A 01/12/20 09:00 Blood Type B POSITIVE 01/11/20 19:18 Antibody Screen Negative 01/11/20 19:18 Microbiology: Microbiology 01/11/20 17:22 Peripheral/Venous Blood Culture - Preliminary NO GROWTH AFTER 48 HOURS 01/11/20 17:22 Peripheral/Venous Blood Culture - Preliminary NO GROWTH AFTER 48 HOURS 01/13/20 Unknown Tracheal Aspirate Sputum Culture - Preliminary 01/11/20 Unknown Urine,Clean Catch Urine Culture - Preliminary De Oliveira/IV: Voiding Method Indwelling Catheter IV Catheter Type [Right Hand] INT / Saline Lock IV Catheter Type [Left Forearm Peripheral IV ] IV Catheter Type [Right Peripheral IV Antecubital] Active Medications - Current Medications Current Medications: Generic Name Dose Route Start Last Admin Trade Name Freq PRN Reason Stop Dose Admin Acetaminophen 650 mg 01/11/20 18:55 Tylenol PO Q4H PRN Pain MILD(1-3)/Fever >100.5/CORDOVA Dexamethasone 6 mg 01/13/20 12:00 01/13/20 13:31 Decadron IV 01/22/20 10:01 6 mg Q24HR ASHISH Administration Enoxaparin Sodium 120 mg 01/13/20 12:00 01/13/20 22:12 Enoxaparin SUB-Q 120 mg Q12HR ASHISH Administration Famotidine 20 mg 01/13/20 10:00 01/13/20 22:12 Pepcid IV 20 mg BID ASHISH Administration Fentanyl 50 mcg 01/13/20 01:52 01/13/20 02:15 Sublimaze IV 50 mcg Q10MIN PRN Administration ANALGESIA Hydromorphone HCl 0.25 mg 01/11/20 18:59 01/12/20 21:36 Dilaudid IV 0.25 mg Q4H PRN Administration Pain, Moderate (4-6) Hydrophilic Ointment 1 applic 01/13/20 01:52 Vaseline Lip Therapy TP Q2HR PRN Dry Lips Ceftriaxone Sodium 2 gm in 100 mls @ 200 mls/hr 01/11/20 17:00 01/13/20 10:20 Rocephin/Ns 2 Gm/100 Ml IV 200 mls/hr Q24HR ASHISH Administration Protocol Fentanyl Citrate 2,000 mcg in 100 mls @ 5.69 mls/hr 01/13/20 02:00 01/14/20 04:47 Fentanyl Drip Premix IV 1 mcg/kg/hr TITR ASHISH 5.69 mls/hr Titration Protocol 1 MCG/KG/HR Midazolam HCl 100 mg/ Sodium 100 mls @ 2 mls/hr 01/13/20 02:00 01/14/20 04:46 Chloride IV 1 mg/hr TITR ASHISH 1 mls/hr Titration Protocol 2 MG/HR Propofol 1,000 mg in 100 mls @ 3.414 mls/hr 01/13/20 02:00 01/14/20 04:48 Diprivan 10 Mg/Ml IV 5 mcg/kg/min TITR ASHISH 3.414 mls/hr Titration Protocol 5 MCG/KG/MIN Azithromycin 500 mg/ Sodium 250 mls @ 250 mls/hr 01/13/20 10:00 01/13/20 10:40 Chloride IV 250 mls/hr Q24HR ASHISH Administration REMDESIVIR 100 mg/ Sodium 250 mls @ 500 mls/hr 01/14/20 21:00 Chloride IV 01/17/20 21:29 Q24HR@2100 ASHISH Insulin Human Lispro 0 unit 01/13/20 11:00 01/14/20 05:20 Humalog SUB-Q 4 unit Q6H ASHISH Administration Protocol Midazolam HCl 2 mg 01/13/20 01:52 Versed IV Q10MIN PRN Sedation Multi-Ingred Cream/Lotion/Oil/Oint 1 applic 01/13/20 01:52 Artificial Tears Ophth Oint OU Q4HR PRN Dry Eye(s) Ondansetron HCl 4 mg 01/11/20 18:55 Zofran IV Q8H PRN Nausea And Vomiting Sodium Chloride 10 ml 01/11/20 22:00 01/13/20 22:00 Sodium Chloride Flush Syringe 10 Ml IV 10 ml BID ASHISH Administration Sodium Chloride 10 ml 01/11/20 18:55 Sodium Chloride Flush Syringe 10 Ml IV PRN PRN LINE FLUSH Sodium Chloride 50 ml 01/13/20 17:00 01/13/20 18:11 Nacl 0.9% IV 01/17/20 17:01 50 ml Q24H ASHISH Administration Nutrition/Malnutrition Assess - Dietary Evaluation Nutrition/Malnutrition Findings: Nutrition Notes Start: 01/13/20 08:58 Freq: Status: Active Protocol: Document 01/13/20 08:58 LP (Rec: 01/13/20 09:06 LP [email or web address]) Nutrition Notes Need for Assessment generated from: MD Order Initial or Follow up Assessment Current Diagnosis Diabetes,Sepsis,Respiratory Failure Other Pertinent Diagnosis Pneu, COVID-19 (+) Current Diet Cardiacr/consistent CHO Labs/Tests BG 356 Pertinent Medications Solumedrol Propofol at 10ml/hr Height 4 ft 11 in Weight 118.5 kg [place] Body Weight (kg) 43.18 BMI 52.7 Weight Status Morbidly Obese Subjective/Other Information Consult for evaluation of nutrition intakes. Pt on vent. Burn Absent Trauma Absent GI Symptoms None Current % PO Negligible Minimum of two criteria No physical signs of malnutrition #1 Nutrition Diagnosis Inadequate oral intake Etiology Respiratory failure As Evidenced by Signs and Symptoms Pt unable to consume PO due to vent Is patient on ventilator? Yes Is Patient Ambulatory and/or Out of Bed No REE-([facility]-confined to bed) 2132.880 Kcal/Kg value to use for calculation 13 Approximate Energy Requirements Using 1541 kcal/Kg Calculation Used for Recommendations Kcal/kg Additional Notes Protein needs are up to 108g ( up to 2.5g/kg) Fluid needs are 1ml/kcal Nutrition Intervention Change Diet Order: TF consult or extubation Nutrition Support: Once consulted Nepro at 40ml/ hr Flush with 180ml q4h Kcal 1,728 Protein (gm) 78 Fluid (mL) 698 Goal #1 Consult for TF or extubation Anticipated Discharge Needs: Unable to determine at this time Follow-Up By: 01/15/20 Additional Comments Follow for TF consult or extubation/intakes
[2020-01-14] MEDS ORDERED: SODIUM POLYSTYRENE 15 GM/60 ML ORAL LIQD PO NR (09:52)
[2020-01-14] MEDS: cefTRIAXone/NS 2 GM/100 ML 2 GM/100 ML BAG IV SCH (10:39)
[2020-01-14 10:40] LABS: Albumin 2.7 g/dL (3.9-5); Calcium 8.9 mg/dL (8.4-10.2)
[2020-01-14] MEDS: ENOXAPARIN 120 MG/0.8 ML INJ SUB-Q SCH ×2 (10:40→22:26)
[2020-01-14] MEDS: AZITHROMYCIN 500 MG in SODIUM CHLORIDE 0.9% 250ML 250 ML IV SCH (10:40)
[2020-01-14] MEDS: dexAMETHasone 4 MG/ML VIAL IV SCH (10:40)
[2020-01-14] MEDS: FAMOTIDINE 20 MG/2 ML INJ IV SCH ×2 (10:40→22:27)
[2020-01-14] MEDS ORDERED: SODIUM BICARBONATE 325 MG TAB FEEDTUBE PRN (11:00)
[2020-01-14] MEDS ORDERED: LIPASE 10,500/PROTEASE 25,000/AMYLASE 43,750 (UNITS) DR CAP FEEDTUBE PRN (11:00)
[2020-01-14] MEDS ORDERED: SIMPLE SYRUP 15 ML FEEDTUBE PRN ×2 (11:00)
--- NOTE | 2020-01-14 12:47 | Progress Note ---
Assessment and Plan Acute hypoxemic respiratory failure orally intubated on [facility] Severe COVID infection Multifocal pneumonia Extreme obesity ARACELI- vasomotor nephropathy/COVID Thrombocytopenia Hyperglycemia Critical care proning per protocol, get ABG this afternoon Prone this evening Wean PEEP down to 16 Stop Propofol since she has significant bradycardia and use Fentanyl/Midazolam for sedation - VAP bundle addressed -CXR, ABG in am -Therapeutic anticoagulation with Lovenox -Permissive hypercapnia is acceptable - continue bronchodilators with pulmonary hygiene per RT -Monitor airway pressures, lung protective strategies - wean off benzodiazepines as soon as possible , reduce the possibility of delirium - prn analgesia per CPOT score - sedation prn for target RASS -2 to -3 - Continue to wean supplemental oxygen for target O2 sats > 92% - conservative fluid management measures as tolerated by hemodynamics and renal function - Bronchodilators with pulmonary hygiene per RT -Antibiotics for CAP , complete course. ID following - Accuchecks with glycemic control per SSI (While critically ill target blood g lucose of 140-180 mg/dL; avoid hypoglycemia) - Maintenance of sleep-wake cycle, avoid delirium - Avoid nephrotoxins, closely monitor renal function, renally dose all medications - Aspiration precautions, HOB >40 -Stress ulcer prophylaxis - NGT/small bowel feeding tube to initiate enteric nutritional support -RD consult placed - Mobility protocol, off loading and skin assessment for pressure ulcer prevention - Monitor hemodynamics closely - Supportive transfusions as indicated to keep HgB >7g/dL COVID SPECIFIC INTERVENTIONS -Airborne, contact isolation for COVID per facility protocols -IV steroids-dexamethasone -Trend d-dimer,and other inflammatory markers per facility protocol -Evaluate for Convalescent plasma therapy- patient is blood less medicine and will not accept COVID convalescent plasma -Continue Remdesivir day 2 of 5. CrCl=84 -Continue ceftriaxone 2 gm IV qday and azithromycin 500 mg PO qday to complete 5 and 3 days respectively for treatment of CAP Monitor QTc Discussed with the ICU team-RT,RN Life threatening condition- COVID 19 ARDS acute hypoxemic respiratory failure on [facility] Mortality/Morbidity- High Complexity of medical decision making- High CONDITION: CRITICAL PROGNOSIS: GUARDED CODE STATUS: FULL CODE The high probability of a clinically significant, sudden or life-threatening deterioration of the [respiratory & neurology, renal ] system(s) required my full and direct attention, intervention and personal management. The aggregate critical care time was [35] minutes without overlap. Time includes spent on; [x] Data Review and interpretation [x] Patient assessment and monitoring of vital signs [x] Documentation [x] Medication orders and management Subjective Date of service: 01/14/20 Principal diagnosis: Shortness of breath Interval history: Follow up fro acute hypoxemic respiratory failure on [facility]; Severe-critical COVID infection: ARACELI; Extreme obesity: Seen and examined. 24 hour events reviewed. Vitals, albs,medications chart and imaging reviewed. supine, on Propofol and Fentanyl with episodes of bradycardia. Remains orally intubated ETT 7.5cm at 21 at the [facility] 30/400/18/50% ABG 7.36/41/133 P/F 266 Objective - Exam Narrative Exam: General appearance: appears uncomfortable, other (Morbidly obese AAW, proned ETT 7.5 ) Eyes: non-icteric ENT: oropharynx moist Neck: supple, no lymphadenopathy, no JVD Effort: mildy labored Ascultation: Bilateral: diminished breath sounds, rhonchi Cardiovascular: regular rate and rhythm, S1,S2 Extremities: no cyanosis, no edema Vital Signs - 12hr 01/14/20 01/14/20 01/14/20 01:00 01:16 01:30 Temperature Pulse Rate 52 L 51 L 52 L Respiratory 30 H 30 H 30 H Rate Blood Pressure 136/75 129/73 134/77 O2 Sat by Pulse 100 100 100 Oximetry 01/14/20 01/14/20 01/14/20 01:46 02:00 02:16 Temperature Pulse Rate 56 L 56 L 54 L Respiratory 30 H 30 H 30 H Rate Blood Pressure 137/74 141/75 139/79 O2 Sat by Pulse 100 100 100 Oximetry 01/14/20 01/14/20 01/14/20 02:30 02:46 03:00 Temperature Pulse Rate 57 L 50 L 52 L Respiratory 30 H 30 H 30 H Rate Blood Pressure 143/77 139/69 133/75 O2 Sat by Pulse 100 100 100 Oximetry 01/14/20 01/14/20 01/14/20 03:16 03:30 03:46 Temperature Pulse Rate 59 L 73 60 Respiratory 30 H 30 H 30 H Rate Blood Pressure 139/76 140/80 133/79 O2 Sat by Pulse 100 100 100 Oximetry 01/14/20 01/14/20 01/14/20 04:00 04:01 04:16 Temperature 98.7 F Pulse Rate 54 L 54 L 47 L Respiratory 30 H 30 H Rate Blood Pressure 134/72 131/75 131/75 O2 Sat by Pulse 100 100 100 Oximetry 01/14/20 01/14/20 01/14/20 04:30 04:46 05:00 Temperature Pulse Rate 46 L 44 L 50 L Respiratory 30 H 30 H 20 Rate Blood Pressure 133/67 131/72 133/73 O2 Sat by Pulse 100 100 96 Oximetry 01/14/20 01/14/20 01/14/20 05:16 05:30 05:46 Temperature Pulse Rate 50 L 47 L 51 L Respiratory 30 H 30 H 30 H Rate Blood Pressure 131/72 113/71 120/72 O2 Sat by Pulse 99 99 99 Oximetry 01/14/20 01/14/20 01/14/20 06:00 06:16 06:30 Temperature Pulse Rate 50 L 49 L 48 L Respiratory 30 H 30 H 30 H Rate Blood Pressure 128/69 131/80 124/71 O2 Sat by Pulse 99 100 100 Oximetry 01/14/20 01/14/20 01/14/20 06:46 07:00 07:16 Temperature Pulse Rate 55 L 47 L 48 L Respiratory 30 H 30 H 30 H Rate Blood Pressure 125/69 130/76 147/90 O2 Sat by Pulse 100 100 100 Oximetry 01/14/20 01/14/20 01/14/20 07:20 07:30 07:46 Temperature Pulse Rate 70 47 L 56 L Respiratory 30 H 30 H Rate Blood Pressure 128/78 135/75 135/75 O2 Sat by Pulse 97 100 96 Oximetry 01/14/20 01/14/20 01/14/20 08:00 08:16 08:30 Temperature 98.4 F Pulse Rate 55 L 56 L 55 L Respiratory 30 H 30 H 30 H Rate Blood Pressure 134/76 134/76 143/79 O2 Sat by Pulse 98 96 99 Oximetry 01/14/20 01/14/20 01/14/20 08:46 09:00 09:16 Temperature Pulse Rate 58 L 51 L 57 L Respiratory 30 H 30 H 30 H Rate Blood Pressure 131/74 147/81 130/78 O2 Sat by Pulse 98 98 97 Oximetry 01/14/20 01/14/20 01/14/20 09:30 09:46 10:00 Temperature Pulse Rate 54 L 53 L 75 Respiratory 30 H 30 H 28 H Rate Blood Pressure 137/83 131/80 143/83 O2 Sat by Pulse 98 98 98 Oximetry 01/14/20 01/14/20 01/14/20 10:16 10:30 10:46 Temperature Pulse Rate 52 L 61 58 L Respiratory 30 H 30 H 30 H Rate Blood Pressure 156/81 137/73 156/87 O2 Sat by Pulse 97 98 99 Oximetry 01/14/20 01/14/20 11:00 11:15 Temperature Pulse Rate 61 74 Respiratory 30 H Rate Blood Pressure 157/93 149/94 O2 Sat by Pulse 98 95 Oximetry Neurologic: non-focal exam, pupils equal and round Psychiatric: anxious CBC and BMP: 01/13/20 12:54 01/14/20 09:47 ABG, PT/INR, D-dimer: ABG ABG pH 7.363 pH Units (7.350-7.450) 01/14/20 03:13 POC ABG pCO2 56.2 mmHg (32.0-48.0) H 01/13/20 04:45 ABG pCO2 40.5 mm Hg 01/14/20 03:13 POC ABG pO2 62.5 mmHg (83-108) L 01/13/20 04:45 ABG pO2 132.6 mm Hg (80.0-90.0) H 01/14/20 03:13 POC ABG HCO3 21.4 01/13/20 04:45 ABG O2 Saturation 98.5 % (95.0-99.0) 01/14/20 03:13 PT/INR, D-dimer D-Dimer > 53960 ng/mlDDU (0-234) H 01/14/20 09:47 Abnormal lab findings: Abnormal Labs 01/11/20 01/11/20 01/11/20 17:22 17:22 17:22 WBC RBC MCV MCH RDW Plt Count Lymph % (Auto) Seg Neutrophils % Seg Neuts % (Manual) Lymphocytes % (Manual) Seg Neutrophils # Seg Neutrophils # Man Lymphocytes # (Manual) D-Dimer 622.52 H ABG pH POC ABG pCO2 POC ABG pO2 ABG pO2 ABG O2 Saturation ABG Base Excess ABG Oxyhemoglobin Oxyhemoglobin Potassium Chloride 97.6 L Carbon Dioxide 18 L BUN Creatinine Glucose 199 H POC Glucose Lactic Acid 2.20 H* Ferritin AST 68 H Lactate Dehydrogenase C-Reactive Protein Total Protein Albumin 3.0 L Coronavirus (PCR) 01/11/20 01/11/20 01/11/20 17:22 17:22 23:29 WBC RBC MCV MCH RDW Plt Count Lymph % (Auto) Seg Neutrophils % Seg Neuts % (Manual) Lymphocytes % (Manual) Seg Neutrophils # Seg Neutrophils # Man Lymphocytes # (Manual) D-Dimer ABG pH POC ABG pCO2 POC ABG pO2 ABG pO2 ABG O2 Saturation ABG Base Excess ABG Oxyhemoglobin Oxyhemoglobin Potassium Chloride Carbon Dioxide BUN Creatinine Glucose 202 H POC Glucose Lactic Acid 2.10 H* Ferritin 270.3 H AST Lactate Dehydrogenase 610 H C-Reactive Protein 23.80 H Total Protein Albumin Coronavirus (PCR) 01/12/20 01/12/20 01/12/20 07:07 07:07 09:00 WBC RBC 5.31 H MCV 76 L MCH 25 L RDW 15.5 H Plt Count Lymph % (Auto) 11.2 L Seg Neutrophils % 85.2 H Seg Neuts % (Manual) Lymphocytes % (Manual) Seg Neutrophils # 9.2 H Seg Neutrophils # Man Lymphocytes # (Manual) D-Dimer ABG pH POC ABG pCO2 POC ABG pO2 ABG pO2 ABG O2 Saturation ABG Base Excess ABG Oxyhemoglobin Oxyhemoglobin Potassium Chloride Carbon Dioxide 21 L BUN 23 H Creatinine Glucose 206 H POC Glucose Lactic Acid Ferritin AST Lactate Dehydrogenase C-Reactive Protein Total Protein Albumin Coronavirus (PCR) Positive A 01/13/20 01/13/20 01/13/20 01:02 04:45 05:10 WBC RBC MCV MCH RDW Plt Count Lymph % (Auto) Seg Neutrophils % Seg Neuts % (Manual) Lymphocytes % (Manual) Seg Neutrophils # Seg Neutrophils # Man Lymphocytes # (Manual) D-Dimer > 54253 H ABG pH 7.19 L POC ABG pCO2 56.2 H POC ABG pO2 44.3 L 62.5 L ABG pO2 ABG O2 Saturation ABG Base Excess ABG Oxyhemoglobin 77.5 L 86.5 L Oxyhemoglobin Potassium Chloride Carbon Dioxide BUN Creatinine Glucose POC Glucose Lactic Acid Ferritin AST Lactate Dehydrogenase C-Reactive Protein Total Protein Albumin Coronavirus (PCR) 01/13/20 01/13/20 01/13/20 05:10 05:54 12:07 WBC RBC MCV MCH RDW Plt Count Lymph % (Auto) Seg Neutrophils % Seg Neuts % (Manual) Lymphocytes % (Manual) Seg Neutrophils # Seg Neutrophils # Man Lymphocytes # (Manual) D-Dimer ABG pH POC ABG pCO2 POC ABG pO2 ABG pO2 ABG O2 Saturation ABG Base Excess ABG Oxyhemoglobin Oxyhemoglobin Potassium Chloride Carbon Dioxide BUN Creatinine Glucose POC Glucose 356 H 309 H Lactic Acid Ferritin AST Lactate Dehydrogenase 999 H C-Reactive Protein Total Protein Albumin Coronavirus (PCR) 01/13/20 01/13/20 01/13/20 12:54 18:46 18:50 WBC 14.0 H RBC MCV 76 L MCH 25 L RDW 15.8 H Plt Count 113 L Lymph % (Auto) Seg Neutrophils % Seg Neuts % (Manual) 88.0 H Lymphocytes % (Manual) 2.0 L Seg Neutrophils # Seg Neutrophils # Man 12.3 H Lymphocytes # (Manual) 0.3 L D-Dimer ABG pH 7.290 L POC ABG pCO2 POC ABG pO2 ABG pO2 60.2 L ABG O2 Saturation 88.6 L ABG Base Excess -2.7 L ABG Oxyhemoglobin Oxyhemoglobin 87.1 L Potassium Chloride Carbon Dioxide BUN Creatinine Glucose POC Glucose 268 H Lactic Acid Ferritin AST Lactate Dehydrogenase C-Reactive Protein Total Protein Albumin Coronavirus (PCR) 01/13/20 01/14/20 01/14/20 23:53 00:31 03:13 WBC RBC MCV MCH RDW Plt Count Lymph % (Auto) Seg Neutrophils % Seg Neuts % (Manual) Lymphocytes % (Manual) Seg Neutrophils # Seg Neutrophils # Man Lymphocytes # (Manual) D-Dimer ABG pH POC ABG pCO2 POC ABG pO2 ABG pO2 132.6 H ABG O2 Saturation ABG Base Excess -2.7 L ABG Oxyhemoglobin Oxyhemoglobin Potassium 5.3 H Chloride Carbon Dioxide BUN 55 H Creatinine 1.6 H Glucose 268 H POC Glucose 259 H Lactic Acid Ferritin AST 46 H Lactate Dehydrogenase C-Reactive Protein Total Protein 6.1 L Albumin 3.1 L Coronavirus (PCR) 01/14/20 01/14/20 01/14/20 05:23 06:06 09:47 WBC RBC MCV MCH RDW Plt Count Lymph % (Auto) Seg Neutrophils % Seg Neuts % (Manual) Lymphocytes % (Manual) Seg Neutrophils # Seg Neutrophils # Man Lymphocytes # (Manual) D-Dimer > 55932 H ABG pH POC ABG pCO2 POC ABG pO2 ABG pO2 ABG O2 Saturation ABG Base Excess ABG Oxyhemoglobin Oxyhemoglobin Potassium 5.5 H Chloride 107.6 H Carbon Dioxide 21 L BUN 58 H Creatinine 1.7 H Glucose 231 H POC Glucose 231 H Lactic Acid Ferritin AST Lactate Dehydrogenase C-Reactive Protein Total Protein Albumin Coronavirus (PCR) 01/14/20 01/14/20 09:47 12:20 WBC RBC MCV MCH RDW Plt Count Lymph % (Auto) Seg Neutrophils % Seg Neuts % (Manual) Lymphocytes % (Manual) Seg Neutrophils # Seg Neutrophils # Man Lymphocytes # (Manual) D-Dimer ABG pH POC ABG pCO2 POC ABG pO2 ABG pO2 ABG O2 Saturation ABG Base Excess ABG Oxyhemoglobin Oxyhemoglobin Potassium Chloride 107.2 H Carbon Dioxide 21 L BUN 63 H Creatinine 1.5 H Glucose 217 H POC Glucose 238 H Lactic Acid Ferritin AST Lactate Dehydrogenase C-Reactive Protein Total Protein 6.0 L Albumin 2.7 L Coronavirus (PCR) Chest x-ray: image reviewed Allied health notes reviewed: RT
--- NOTE | 2020-01-14 13:12 | Event Note ---
Date: 01/14/20 Appreciate consult. Have reviewed chart and will follow patient for renal related issues. Creatinine stable, suspect ATN in setting of COVID-19. Will check serologies and protein/creatinine ratio, check renal imaging as part of ARACELI workup. Continue supportive measures at this time.
[2020-01-14] MEDS: MIDAZOLAM 100 MG in SODIUM CHLORIDE 0.9% 80 ML IV SCH (14:56)
--- NOTE | 2020-01-14 15:43 | XRay Report ---
ABDOMEN 1 VIEW(S) INDICATION / CLINICAL INFORMATION: ngt placement. COMPARISON: Yesterday FINDINGS: TUBES / LINES: The nasogastric tube is been repositioned or replaced and now terminates in the fundus of the stomach beneath the left hemidiaphragm. BOWEL GAS PATTERN: No significant abnormality. FREE AIR / EXTRALUMINAL GAS: None seen. ADDITIONAL FINDINGS: No significant additional findings. IMPRESSION: Nasogastric tube as described. Signer Name: Miguelito Major Jr, MD Signed: 01/14/2020 3:38 PM Workstation Name: [id number]
[2020-01-14 16:47] LABS: ABG Base Excess 0.5 mmol/L (-2.0-3.0); ABG HCO3 25.4 mmol/L (20.0-26.0); ABG Methemoglobin 0.5 % (0.0-1.5); ABG Oxygen Saturation 94.4 % (95.0-99.0); ABG PCO2 41.8 mm Hg; ABG PH 7.401 pH Units (7.350-7.450); ABG PO2 69.3 mm Hg (80.0-90.0)
[2020-01-14 20:05] LABS: Calcium 8.6 mg/dL (8.4-10.2)
[2020-01-14] MEDS ORDERED: SODIUM POLYSTYRENE 15 GM/60 ML ORAL LIQD PR ONE (20:48)
[2020-01-14] MEDS ORDERED: DEXTROSE 50% IN WATER (25GM) 50 ML SYRINGE IV ONE (20:48)
[2020-01-14] MEDS ORDERED: INSULIN REGULAR, HUMAN 100 UNIT/ML 3ML VIAL IV ONE (20:48)
[2020-01-14] MEDS: REMDESIVIR 100 MG in SODIUM CHLORIDE 0.9% 250ML 250 ML IV SCH (22:17)
[2020-01-14] MEDS: SODIUM CHLORIDE 0.9% 50 ML IVPB IV SCH (23:00)
[2020-01-14] MEDS ORDERED: SODIUM CHLORIDE 0.9% 250ML 250 ML IV ONE (23:21)
[2020-01-15] MEDS: INSULIN LISPRO 100 UNIT/ML VIAL 3 mL SUB-Q SCH ×4 (00:29→17:55)
[2020-01-15] MEDS: fentaNYL DRIP Premix 2,000 MCG/100 ML BAG IV SCH ×5 (03:49→22:14)
[2020-01-15 04:55] LABS: Hematocrit 35.3 % (30.3-42.9); Hemoglobin 11.6 gm/dl (10.1-14.3); Mean Corpuscular HGB Conc 33 % (30-34); Mean Corpuscular Volume 75 fl (79-97); Platelet Count 223 K/mm3 (140-440); Red Blood Count 4.69 M/mm3 (3.65-5.03); Red Cell Distribution Width 15.4 % (13.2-15.2)
[2020-01-15 05:07] LABS: Basophils % (Auto) 0.2 % (0.0-1.8); Lymphocytes # (Auto) 1.3 K/mm3 (1.2-5.4); Lymphocytes % (Auto) 8.6 % (13.4-35.0)
[2020-01-15 05:13] LABS: BUN/Creatinine Ratio 47; Blood Urea Nitrogen 52 mg/dL (7-17); Calcium 8.4 mg/dL (8.4-10.2); Hemolysis Index 3
--- NOTE | 2020-01-15 08:11 | Consultation ---
History of Present Illness - Reason for Consult Consult date: 01/15/20 acute renal failure, hypernatremia - History of Present Illness This is a 39 year old woman with obesity, DM, Asthma presents with COVID-19 pneumonia. Patient intubated and sedated at time of consult. Creatinine had worsened initially and patient is now hypernatremic. Reviewed prior hospital course. Past History Past Medical History: diabetes Past Surgical History: No surgical history, Other (Reviewed) Social history: single. denies: smoking, alcohol abuse, prescription drug abuse Family history: diabetes, hypertension Medications and Allergies Allergies Allergy/AdvReac Type Severity Reaction Status Date / Time shellfish derived Allergy Swelling Verified 01/11/20 18:37 Home Medications Medication Instructions Recorded Confirmed Last Taken Type glipiZIDE [Glipizide] 10 mg PO DAILY #30 tablet 08/15/18 01/13/20 Unknown Rx Active Meds: Active Medications Acetaminophen (Tylenol) 650 mg PO Q4H PRN PRN Reason: Pain MILD(1-3)/Fever >100.5/CORDOVA Lipase/Protease/Amylase (Pancreaze Dr 10,500 Unit) 1 each FEEDTUBE PRN PRN PRN Reason: For Clogged Feeding Tube Dexamethasone (Decadron) 6 mg IV Q24HR [facility] Stop: 01/22/20 10:01 Last Admin: 01/14/20 10:40 Dose: 6 mg Documented by: Enoxaparin Sodium (Enoxaparin) 120 mg SUB-Q Q12HR [facility] Last Admin: 01/14/20 22:26 Dose: 120 mg Documented by: Famotidine (Pepcid) 20 mg IV BID [facility] Last Admin: 01/14/20 22:27 Dose: 20 mg Documented by: Fentanyl (Sublimaze) 50 mcg IV Q10MIN PRN PRN Reason: ANALGESIA Last Admin: 01/13/20 02:15 Dose: 50 mcg Documented by: Hydromorphone HCl (Dilaudid) 0.25 mg IV Q4H PRN PRN Reason: Pain, Moderate (4-6) Last Admin: 01/12/20 21:36 Dose: 0.25 mg Documented by: Hydrophilic Ointment (Vaseline Lip Therapy) 1 applic TP Q2HR PRN PRN Reason: Dry Lips Ceftriaxone Sodium (Rocephin/Ns 2 Gm/100 Ml) 2 gm in 100 mls @ 200 mls/hr IV Q24HR ASHISH; Protocol Stop: 01/15/20 10:29 Last Admin: 01/14/20 10:39 Dose: 200 mls/hr Documented by: Fentanyl Citrate (Fentanyl Drip Premix) 2,000 mcg in 100 mls @ 5.69 mls/hr IV TITR ASHISH; Protocol Last Admin: 01/15/20 08:01 Dose: 4 mcg/kg/hr, 22.76 mls/hr Documented by: Midazolam HCl 100 mg/ Sodium (Chloride) 100 mls @ 2 mls/hr IV TITR ASHISH; Pr otocol Last Titration: 01/14/20 23:10 Dose: 5 mg/hr, 5 mls/hr Documented by: REMDESIVIR 100 mg/ Sodium (Chloride) 250 mls @ 500 mls/hr IV Q24HR@2100 ASHISH Stop: 01/17/20 21:29 Last Admin: 01/14/20 22:17 Dose: 500 mls/hr Documented by: Propofol (Diprivan 10 Mg/Ml) 1,000 mg in 100 mls @ 3.414 mls/hr IV TITR ASHISH; Protocol Insulin Glargine (Lantus) 5 units SUB-Q DAILY ASHISH Insulin Human Lispro (Humalog) 0 unit SUB-Q Q6H ASHISH; Protocol Last Admin: 01/15/20 05:42 Dose: 6 unit Documented by: Midazolam HCl (Versed) 2 mg IV Q10MIN PRN PRN Reason: Sedation Multi-Ingred Cream/Lotion/Oil/Oint (Artificial Tears Ophth Oint) 1 applic OU Q4HR PRN PRN Reason: Dry Eye(s) Ondansetron HCl (Zofran) 4 mg IV Q8H PRN PRN Reason: Nausea And Vomiting Simple Syrup (Simple Syrup) 15 ml FEEDTUBE PRN PRN PRN Reason: Hypoglycemia Simple Syrup (Simple Syrup) 30 ml FEEDTUBE PRN PRN PRN Reason: Hypoglycemia Sodium Bicarbonate (Sodium Bicarbonate) 325 mg FEEDTUBE PRN PRN PRN Reason: For Clogged Feeding Tube Sodium Chloride (Sodium Chloride Flush Syringe 10 Ml) 10 ml IV BID [facility] Last Admin: 01/14/20 22:28 Dose: 10 ml Documented by: Sodium Chloride (Sodium Chloride Flush Syringe 10 Ml) 10 ml IV PRN PRN PRN Reason: LINE FLUSH Sodium Chloride (Nacl 0.9%) 50 ml IV Q24H ASH[facility] Stop: 01/17/20 17:01 Last Admin: 01/14/20 23:00 Dose: 50 ml Documented by: Review of Systems ROS unobtainable: due to endotracheal tube Exam - Vital Signs Vital signs: Vital Signs Pulse Ox 96 01/11/20 16:20 - Physical Exam Narrative exam: Due to COVID-19 and need to conserve PPE, patient was seen through window and not directly examined. Reviewed examination of primary team. Results - Lab Results 01/15/20 03:57 01/15/20 03:57 Most recent lab results ABG pH 7.480 (7.320-7.450) H 01/15/20 03:37 ABG pCO2 41.8 mm Hg 01/14/20 16:00 ABG pO2 69.3 mm Hg (80.0-90.0) L 01/14/20 16:00 ABG HCO3 25.4 mmol/L (20.0-26.0) 01/14/20 16:00 ABG O2 Saturation 94.4 % (95.0-99.0) L 01/14/20 16:00 Calcium 8.4 mg/dL (8.4-10.2) 01/15/20 03:57 Assessment and Plan # Acute Kidney Injury: suspect tubular injury in setting of COVID-19, has improved with supportive measures - strict Is/Os - avoid nephrotoxins - IVF prn - supportive care per primary, ICU - serologies, UP/C pending # Hypernatremia: due to free water deficit, increase free water with tube feeds as able or start D5W if tolerated per pulmonary # Acute hypoxic respiratory failure, COVID-19, Sepsis: appreciate ICU, ID recommendations # Bradycardia: appreciate cardiology input # Hyperkalemia: improved, following
--- NOTE | 2020-01-15 09:00 | Progress Note ---
Assessment and Plan Assessment and plan: Acute hypoxic respiratory failure. Etiology likely secondary to COVID-19 infection. Patient remains on mechanical ventilation. Pulmonary following. COVID-19 pneumonia. Patient was initially diagnosed 8 days prior to admission. Patient has high d-dimer and inflammatory markers. ID following. Continue dexamethasone 6 mg IV for completion of 10 days. Continue remdesivir. Continue to trend inflammatory markers. Full dose anticoagulation given the high d- dimer. Sepsis. Etiology secondary to above. Continue IV antibiotics of ceftriaxone and azithromycin. Morbid obesity. Severe bradycardia this morning 01/15/2020; was in the 30's and was given atropine, and cardiology consulted. Elevated LFTs/transaminitis. Etiology likely secondary to sepsis/COVID-19 Acute kidney injury. Etiology secondary to sepsis/ATN. Nephrology consultation Hyperkalemia. Etiology likely secondary to above. Kayexalate x1. The high probability of a clinically significant, sudden or life threatening de terioration of the [respiratory and immunologic] system(s) required my full and direct attention, intervention and personal management. The aggregate critical care time was [33] minutes. This time is in addition to time spent performing reported procedures but includes the following: [x] Data Review and interpretation [x] Patient assessment and monitoring of vital signs [x] Documentation [x] Medication orders and management History Interval history: Patient was seen and evaluated during morning rounds Patient was intubated and sedated Patient has severe bradycardia and was given atropine Hospitalist Physical - Physical exam Narrative exam: Patient is intubated and on mechanical ventilation The patient is obese. Vital signs as documented. Head exam is unremarkable. No scleral icterus . Neck is without jugular venous distension, thyromegaly, or carotid bruits. On mechanical ventilation Cardiac exam reveals regular rate and Rhythm. Severe bradycardia. Abdominal exam reveals normal bowel sounds, nontender, no organomegaly. Extremities are nonedematous and both femoral and pedal pulses are normal. 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 - Constitutional Vitals: Temp Pulse Resp BP Pulse Ox 98.1 F 42 L 30 H 129/70 100 01/15/20 08:00 01/15/20 08:15 01/15/20 08:15 01/15/20 08:15 01/15/20 08:15 General appearance: Present: obese, other (orally intubation-sedated) Results - Labs CBC & Chem 7: 01/15/20 03:57 01/15/20 03:57 Labs: Laboratory Last Values WBC 14.9 K/mm3 (4.5-11.0) H 01/15/20 03:57 RBC 4.69 M/mm3 (3.65-5.03) 01/15/20 03:57 Hgb 11.6 gm/dl (10.1-14.3) 01/15/20 03:57 Hct 35.3 % (30.3-42.9) 01/15/20 03:57 MCV 75 fl (79-97) L 01/15/20 03:57 MCH 25 pg (28-32) L 01/15/20 03:57 MCHC 33 % (30-34) 01/15/20 03:57 RDW 15.4 % (13.2-15.2) H 01/15/20 03:57 Plt Count 223 K/mm3 (140-440) 01/15/20 03:57 Lymph % (Auto) 8.6 % (13.4-35.0) L 01/15/20 03:57 [place] % (Auto) 7.0 % (0.0-7.3) 01/15/20 03:57 Eos % (Auto) 0.0 % (0.0-4.3) 01/15/20 03:57 Baso % (Auto) 0.2 % (0.0-1.8) 01/15/20 03:57 Lymph # 1.3 K/mm3 (1.2-5.4) 01/15/20 03:57 [place] # 1.0 K/mm3 (0.0-0.8) H 01/15/20 03:57 Eos # 0.0 K/mm3 (0.0-0.4) 01/15/20 03:57 Baso # 0.0 K/mm3 (0.0-0.1) 01/15/20 03:57 Add Manual Diff Complete 01/13/20 12:54 Total Counted 100 01/13/20 12:54 Seg Neutrophils % 84.2 % (40.0-70.0) H 01/15/20 03:57 Seg Neuts % (Manual) 88.0 % (40.0-70.0) H 01/13/20 12:54 Band Neutrophils % 7.0 % 01/13/20 12:54 Lymphocytes % (Manual) 2.0 % (13.4-35.0) L 01/13/20 12:54 Reactive Lymphs % (Man) 0 % 01/13/20 12:54 Monocytes % (Manual) 3.0 % (0.0-7.3) 01/13/20 12:54 Eosinophils % (Manual) 0 % (0.0-4.3) 01/13/20 12:54 Basophils % (Manual) 0 % (0.0-1.8) 01/13/20 12:54 Metamyelocytes % 0 % 01/13/20 12:54 Myelocytes % 0 % 01/13/20 12:54 Promyelocytes % 0 % 01/13/20 12:54 Blast Cells % 0 % 01/13/20 12:54 Nucleated RBC % Not Reportable 01/13/20 12:54 Seg Neutrophils # 12.5 K/mm3 (1.8-7.7) H 01/15/20 03:57 Seg Neutrophils # Man 12.3 K/mm3 (1.8-7.7) H 01/13/20 12:54 Band Neutrophils # 1.0 K/mm3 01/13/20 12:54 Lymphocytes # (Manual) 0.3 K/mm3 (1.2-5.4) L 01/13/20 12:54 Abs React Lymphs (Man) 0.0 K/mm3 01/13/20 12:54 Monocytes # (Manual) 0.4 K/mm3 (0.0-0.8) 01/13/20 12:54 Eosinophils # (Manual) 0.0 K/mm3 (0.0-0.4) 01/13/20 12:54 Basophils # (Manual) 0.0 K/mm3 (0.0-0.1) 01/13/20 12:54 Metamyelocytes # 0.0 K/mm3 01/13/20 12:54 Myelocytes # 0.0 K/mm3 01/13/20 12:54 Promyelocytes # 0.0 K/mm3 01/13/20 12:54 Blast Cells # 0.0 K/mm3 01/13/20 12:54 WBC Morphology Not Reportable 01/13/20 12:54 WBC Morphology TNR 01/13/20 12:54 Hypersegmented Neuts Not Reportable 01/13/20 12:54 Hyposegmented Neuts Not Reportable 01/13/20 12:54 Hypogranular Neuts Not Reportable 01/13/20 12:54 Smudge Cells Not Reportable 01/13/20 12:54 Toxic Granulation Not Reportable 01/13/20 12:54 Toxic Vacuolation Not Reportable 01/13/20 12:54 Dohle Bodies Not Reportable 01/13/20 12:54 Pelger-Huet Anomaly Not Reportable 01/13/20 12:54 Shanti Rods Not Reportable 01/13/20 12:54 Platelet Estimate Not Reportable 01/13/20 12:54 Clumped Platelets Not Reportable 01/13/20 12:54 Plt Clumps, EDTA Not Reportable 01/13/20 12:54 Large Platelets Not Reportable 01/13/20 12:54 Giant Platelets Not Reportable 01/13/20 12:54 Platelet Satelliting Not Reportable 01/13/20 12:54 Plt Morphology Comment Not Reportable 01/13/20 12:54 RBC Morphology Normal 01/13/20 12:54 Dimorphic RBCs Not Reportable 01/13/20 12:54 Polychromasia Not Reportable 01/13/20 12:54 Hypochromasia Not Reportable 01/13/20 12:54 Poikilocytosis Not Reportable 01/13/20 12:54 Anisocytosis Not Reportable 01/13/20 12:54 Microcytosis Not Reportable 01/13/20 12:54 Macrocytosis Not Reportable 01/13/20 12:54 Spherocytes Not Reportable 01/13/20 12:54 Pappenheimer Bodies Not Reportable 01/13/20 12:54 Sickle Cells Not Reportable 01/13/20 12:54 Target Cells Not Reportable 01/13/20 12:54 Tear Drop Cells Not Reportable 01/13/20 12:54 Ovalocytes Not Reportable 01/13/20 12:54 Helmet Cells Not Reportable 01/13/20 12:54 Luevano-Lilly Bodies Not Reportable 01/13/20 12:54 Avella Rings Not Reportable 01/13/20 12:54 [place] Cells Not Reportable 01/13/20 12:54 Bite Cells Not Reportable 01/13/20 12:54 Crenated Cell Not Reportable 01/13/20 12:54 Elliptocytes Not Reportable 01/13/20 12:54 Acanthocytes (Spur) Not Reportable 01/13/20 12:54 Rouleaux Not Reportable 01/13/20 12:54 Hemoglobin C Crystals Not Reportable 01/13/20 12:54 Schistocytes Not Reportable 01/13/20 12:54 Malaria parasites Not Reportable 01/13/20 12:54 Gurmeet Bodies Not Reportable 01/13/20 12:54 Hem Pathologist Commnt No 01/13/20 12:54 D-Dimer > 04773 ng/mlDDU (0-234) H 01/14/20 09:47 ABG pH 7.480 (7.320-7.450) H 01/15/20 03:37 POC ABG pCO2 33.6 mmHg (32.0-48.0) 01/15/20 03:37 ABG pCO2 41.8 mm Hg 01/14/20 16:00 POC ABG pO2 76.7 mmHg (83-108) L 01/15/20 03:37 ABG pO2 69.3 mm Hg (80.0-90.0) L 01/14/20 16:00 POC ABG HCO3 24.5 01/15/20 03:37 ABG HCO3 25.4 mmol/L (20.0-26.0) 01/14/20 16:00 ABG O2 Saturation 94.4 % (95.0-99.0) L 01/14/20 16:00 ABG O2 Content 16.0 (0.0-44) 01/14/20 16:00 POC ABG Base Excess 1.4 01/15/20 03:37 ABG Base Excess 0.5 mmol/L (-2.0-3.0) 01/14/20 16:00 ABG Hemoglobin 12.3 (12.0-17.5) 01/15/20 03:37 ABG Oxyhemoglobin 86.5 (94-98) L 01/13/20 04:45 ABG Carboxyhemoglobin 1.3 % (0.0-5.0) 01/14/20 16:00 ABG Methemoglobin 0.5 % (0.0-1.5) 01/14/20 16:00 Oxyhemoglobin 92.7 % (95.0-99.0) L 01/14/20 16:00 Carboxyhemoglobin 0.9 (0.5-1.5) 01/13/20 04:45 FiO2 45 01/15/20 03:37 Sodium 152 mmol/L (137-145) H 01/15/20 03:57 Potassium 3.9 mmol/L (3.6-5.0) D 01/15/20 03:57 Chloride 113.0 mmol/L (98-107) H 01/15/20 03:57 Carbon Dioxide 23 mmol/L (22-30) 01/15/20 03:57 Anion Gap 20 mmol/L 01/15/20 03:57 BUN 52 mg/dL (7-17) H 01/15/20 03:57 Creatinine 1.1 mg/dL (0.6-1.2) 01/15/20 03:57 Estimated GFR > 60 ml/min 01/15/20 03:57 BUN/Creatinine Ratio 47 % 01/15/20 03:57 Glucose 288 mg/dL (65-100) H 01/15/20 03:57 POC Glucose 259 (70-105) H 01/15/20 05:50 Lactic Acid 1.40 mmol/L (0.7-2.0) 01/12/20 07:07 Calcium 8.4 mg/dL (8.4-10.2) 01/15/20 03:57 Ferritin 270.3 ng/mL (10.0-200.0) H 01/11/20 17:22 Total Bilirubin 0.20 mg/dL (0.1-1.2) 01/14/20 09:47 AST 40 units/L (5-40) 01/14/20 09:47 ALT 32 units/L (7-56) 01/14/20 09:47 Alkaline Phosphatase 98 units/L (35-129) 01/14/20 09:47 Lactate Dehydrogenase 999 units/L (91-180) H 01/13/20 05:10 C-Reactive Protein 23.80 mg/dL (0.00-1.30) H 01/11/20 17:22 Total Protein 6.0 g/dL (6.3-8.2) L 01/14/20 09:47 Albumin 2.7 g/dL (3.9-5) L 01/14/20 09:47 Albumin/Globulin Ratio 0.8 % 01/14/20 09:47 Procalcitonin 0.33 ng/mL (<0.15) 01/11/20 17:22 Urine Color Yellow (Yellow) 01/11/20 21:50 Urine Turbidity Clear (Clear) 01/11/20 21:50 Urine pH 6.0 (5.0-7.0) 01/11/20 21:50 Ur Specific [place] 1.030 (1.003-1.030) 01/11/20 21:50 Urine Protein >500 mg/dL (Negative) 01/11/20 21:50 Urine Glucose (UA) >=500 mg/dL (Negative) 01/11/20 21:50 Urine Ketones 20 mg/dL (Negative) 01/11/20 21:50 Urine Blood Mod (Negative) 01/11/20 21:50 Urine Nitrite Neg (Negative) 01/11/20 21:50 Urine Bilirubin Neg (Negative) 01/11/20 21:50 Urine Urobilinogen < 2.0 mg/dL (<2.0) 01/11/20 21:50 Ur Leukocyte Esterase Neg (Negative) 01/11/20 21:50 Urine WBC (Auto) 3.0 /HPF (0.0-6.0) 01/11/20 21:50 Urine RBC (Auto) 1.0 /HPF (0.0-6.0) 01/11/20 21:50 U Epithel Cells (Auto) < 1.0 /HPF (0-13.0) 01/11/20 21:50 Urine Bacteria (Auto) 1+ /HPF (Negative) 01/11/20 21:50 Coronavirus (PCR) Positive (Negative) A 01/12/20 09:00 Blood Type B POSITIVE 01/11/20 19:18 Antibody Screen Negative 01/11/20 19:18 Microbiology: Microbiology 01/11/20 17:22 Peripheral/Venous Blood Culture - Preliminary NO GROWTH AFTER 72 HOURS 01/11/20 17:22 Peripheral/Venous Blood Culture - Preliminary NO GROWTH AFTER 72 HOURS 01/13/20 Unknown Tracheal Aspirate Sputum Culture - Preliminary 01/11/20 Unknown Urine,Clean Catch Urine Culture - Final De Oliveira/IV: Voiding Method Indwelling Catheter IV Catheter Type [Right Hand] INT / Saline Lock IV Catheter Type [Left Forearm Peripheral IV ] IV Catheter Type [Right Peripheral IV Antecubital] Active Medications - Current Medications Current Medications: Generic Name Dose Route Start Last Admin Trade Name Freq PRN Reason Stop Dose Admin Acetaminophen 650 mg 01/11/20 18:55 Tylenol PO Q4H PRN Pain MILD(1-3)/Fever >100.5/CORDOVA Lipase/Protease/Amylase 1 each 01/14/20 11:[address] 10,500 Unit FEEDTUBE PRN PRN For Clogged Feeding Tube Dexamethasone 6 mg 01/13/20 12:00 01/14/20 10:40 Decadron IV 01/22/20 10:01 6 mg Q24HR ASHISH Administration Enoxaparin Sodium 120 mg 01/13/20 12:00 01/14/20 22:26 Enoxaparin SUB-Q 120 mg Q12HR ASHISH Administration Famotidine 20 mg 01/13/20 10:00 01/14/20 22:27 Pepcid IV 20 mg BID ASHISH Administration Fentanyl 50 mcg 01/13/20 01:52 01/13/20 02:15 Sublimaze IV 50 mcg Q10MIN PRN Administration ANALGESIA Hydromorphone HCl 0.25 mg 01/11/20 18:59 01/12/20 21:36 Dilaudid IV 0.25 mg Q4H PRN Administration Pain, Moderate (4-6) Hydrophilic Ointment 1 applic 01/13/20 01:52 Vaseline Lip Therapy TP Q2HR PRN Dry Lips Ceftriaxone Sodium 2 gm in 100 mls @ 200 mls/hr 01/11/20 17:00 01/14/20 10:39 Rocephin/Ns 2 Gm/100 Ml IV 01/15/20 10:29 200 mls/hr Q24HR ASHISH Administration Protocol Fentanyl Citrate 2,000 mcg in 100 mls @ 5.69 mls/hr 01/13/20 02:00 01/15/20 08:01 Fentanyl Drip Premix IV 4 mcg/kg/hr TITR ASHISH 22.76 mls/hr Administration Protocol 1 MCG/KG/HR Midazolam HCl 100 mg/ Sodium 100 mls @ 2 mls/hr 01/13/20 02:00 01/14/20 23:10 Chloride IV 5 mg/hr TITR ASHISH 5 mls/hr Titration Protocol 2 MG/HR REMDESIVIR 100 mg/ Sodium 250 mls @ 500 mls/hr 01/14/20 21:00 01/14/20 22:17 Chloride IV 01/17/20 21:29 500 mls/hr Q24HR@2100 ASHISH Administration Propofol 1,000 mg in 100 mls @ 3.414 mls/hr 01/14/20 23:21 Diprivan 10 Mg/Ml IV TITR ASHISH Protocol 5 MCG/KG/MIN Insulin Glargine 5 units 01/15/20 10:00 Lantus SUB-Q DAILY [facility] Insulin Human Lispro 0 unit 01/13/20 11:00 01/15/20 05:42 Humalog SUB-Q 6 unit Q6H [facility] Administration Protocol Midazolam HCl 2 mg 01/13/20 01:52 Versed IV Q10MIN PRN Sedation Multi-Ingred Cream/Lotion/Oil/Oint 1 applic 01/13/20 01:52 Artificial Tears Ophth Oint OU Q4HR PRN Dry Eye(s) Ondansetron HCl 4 mg 01/11/20 18:55 Zofran IV Q8H PRN Nausea And Vomiting Simple Syrup 15 ml 01/14/20 11:00 Simple Syrup FEEDTUBE PRN PRN Hypoglycemia Simple Syrup 30 ml 01/14/20 11:00 Simple Syrup FEEDTUBE PRN PRN Hypoglycemia Sodium Bicarbonate 325 mg 01/14/20 11:00 Sodium Bicarbonate FEEDTUBE PRN PRN For Clogged Feeding Tube Sodium Chloride 10 ml 01/11/20 22:00 01/14/20 22:28 Sodium Chloride Flush Syringe 10 Ml IV 10 ml BID ASHISH Administration Sodium Chloride 10 ml 01/11/20 18:55 Sodium Chloride Flush Syringe 10 Ml IV PRN PRN LINE FLUSH Sodium Chloride 50 ml 01/13/20 17:00 01/14/20 23:00 Nacl 0.9% IV 01/17/20 17:01 50 ml Q24H ASHISH Administration Nutrition/Malnutrition Assess - Dietary Evaluation Nutrition/Malnutrition Findings: Nutrition Notes Start: 01/13/20 08:58 Freq: Status: Active Protocol: Document 01/14/20 12:46 MK (Rec: 01/14/20 12:51 MK [id number]) Co-Sign 01/14/20 12:46 LP Nutrition Notes Need for Assessment generated from: MD Order Initial or Follow up Assessment Current Diagnosis Diabetes,Sepsis,Respiratory Failure Other Pertinent Diagnosis Pneu, COVID-19 (+) Current Diet Cardiac/consistent CHO Labs/Tests Reviewed Pertinent Medications Propofol Height 4 ft 11 in Weight 118.5 kg [place] Body Weight (kg) 43.18 BMI 52.7 Weight Status Morbidly Obese Subjective/Other Information MD consult for TF. Pt remains on vent. Burn Absent Trauma Absent GI Symptoms None Current % PO Negligible Minimum of two criteria No physical signs of malnutrition #1 Nutrition Diagnosis Inadequate oral intake Diagnosis Progress(for reassessment Continues documentation) Is patient on ventilator? Yes Is Patient Ambulatory and/or Out of Bed No REE-([place]-confined to bed) 2132.880 Kcal/Kg value to use for calculation 13 Approximate Energy Requirements Using 1541 kcal/Kg Calculation Used for Recommendations Kcal/kg Additional Notes Protein needs are up to 108g ( up to 2.5g/kg) Fluid needs are 1ml/kcal Nutrition Intervention Change Diet Order: TF Nutrition Support: Nepro at 40ml/hr Flush with 180ml q4h Kcal 1,728 Protein (gm) 78 Fluid (mL) 698 Goal #1 TF start/tolerance Anticipated Discharge Needs: Unable to determine at this time Follow-Up By: 01/16/20 Additional Comments FU for TF start and tolerance
[2020-01-15] MEDS: MIDAZOLAM 100 MG in SODIUM CHLORIDE 0.9% 80 ML IV SCH (09:43)
[2020-01-15] MEDS: cefTRIAXone/NS 2 GM/100 ML 2 GM/100 ML BAG IV SCH (09:44)
[2020-01-15] MEDS: dexAMETHasone 4 MG/ML VIAL IV SCH (09:45)
[2020-01-15] MEDS: FAMOTIDINE 20 MG/2 ML INJ IV SCH ×2 (09:50→21:04)
[2020-01-15] MEDS: ENOXAPARIN 120 MG/0.8 ML INJ SUB-Q SCH ×2 (09:51→21:04)
[2020-01-15] MEDS ORDERED: INSULIN GLARGINE 100 UNITS/ML SUB-Q SCH (10:00)
--- NOTE | 2020-01-15 10:44 | XRay Report ---
SUPINE ABDOMEN INDICATION: NGT PLACEMENT. COMPARISON: One day prior. FINDINGS: Nasogastric tube tip is in the gastric body with side port in the stomach as well. Bowel gas pattern is within normal limits. IMPRESSION: 1. NG tube in satisfactory position. Signer Name: Vinny Gray MD Signed: 01/15/2020 10:39 AM Workstation Name: [id number]
--- NOTE | 2020-01-15 10:45 | XRay Report ---
CHEST 1 VIEW INDICATION: follow up respiratory failure. COMPARISON: One day prior. FINDINGS: Support devices: Unchanged. Heart: Stable. Lungs/Pleura: Mild predominantly perihilar interstitial opacities could be seen in the setting of pul monary venous hypertension or mild interstitial edema. These findings are similar to the prior. No si gnificant effusion, no pneumothorax. IMPRESSION: 1. No significant change. Signer Name: Vinny Gray MD Signed: 01/15/2020 10:41 AM Workstation Name: [id number]
--- NOTE | 2020-01-15 10:54 | Progress Note ---
Assessment and Plan Cultures: Blood culture 01/11/2020 no growth today Urine culture 01/11/2020 10-100,000 normal skin cristina Tracheal aspirate a 01/13/2020 no growth today A/P: 39-year-old female past medical history morbid obesity, diabetes admitted with severe COVID-19 pneumonia. #Sepsis: Fever resolved, leukocytosis up likely due to steroids. #Acute hypoxemic respiratory failure: Likely secondary to COVID-19 infection. remains mechanically ventilated #COVID-19 pneumonia: Initially diagnosed 8 days prior to admission. Likely at the tail end of efficacy of Remdesivir. Very high ddimer. Elevated markers. #Morbid obesity: BMI=52. Associated with worse COVID-19 outcomes #Transaminitis: Likely related to COVID-19. Improving. #Bacteriuria, urine analysis not consistent with UTI #ARACELI: Resolved Recs: -Consider COVID convalescent plasma -Continue dexamethasone 6 mg IV/PO daily to complete 10 days -Continue Remdesivir day 3 of 5. CrCl=84 >30. -Completed ceftriaxone 2 gm IV qday and azithromycin 500 mg PO qday to complete 5 and 3 days respectively. -Obtain daily inflammatory markers - ferritin, Ddimer, CRP, LDH-ordered today -Anticoagulation per [facility] protocol - agree with full dose anticoagulation-ddimer>10,000 Jenifer Robertson MD [facility] ([facility]) Office [phone] Subjective Principal diagnosis: Shortness of breath Objective - Constitutional Vitals: Vital Signs Temp Pulse Resp BP Pulse Ox 98.1 F 65 25 H 111/66 98 01/15/20 08:00 01/15/20 09:30 01/15/20 09:30 01/15/20 09:30 01/15/20 09:30 Temperature -Last 24 Hours Temperature 98.1 F Temperature 98.3 F Temperature 98.3 F Temperature 97.9 F Temperature 98.6 F Temperature 98.1 F - Labs CBC & Chem 7: 01/15/20 03:57 01/15/20 03:57 Labs: Abnormal lab results 01/14/20 01/14/20 01/14/20 Range/Units 09:47 12:20 16:00 WBC (4.5-11.0) K/mm3 MCV (79-97) fl MCH (28-32) pg RDW (13.2-15.2) % Lymph % (Auto) (13.4-35.0) % [place] # (0.0-0.8) K/mm3 Seg Neutrophils % (40.0-70.0) % Seg Neutrophils # (1.8-7.7) K/mm3 D-Dimer > 73705 H (0-234) ng/mlDDU ABG pH (7.320-7.450) POC ABG pO2 (83-108) mmHg ABG pO2 69.3 L (80.0-90.0) mm Hg ABG O2 Saturation 94.4 L (95.0-99.0) % Oxyhemoglobin 92.7 L (95.0-99.0) % Sodium (137-145) mmol/L Potassium (3.6-5.0) mmol/L Chloride (98-107) mmol/L Carbon Dioxide (22-30) mmol/L BUN (7-17) mg/dL Creatinine (0.6-1.2) mg/dL Glucose (65-100) mg/dL POC Glucose 238 H (70-105) 01/14/20 01/14/20 01/14/20 Range/Units 18:24 19:01 23:50 WBC (4.5-11.0) K/mm3 MCV (79-97) fl MCH (28-32) pg RDW (13.2-15.2) % Lymph % (Auto) (13.4-35.0) % [place] # (0.0-0.8) K/mm3 Seg Neutrophils % (40.0-70.0) % Seg Neutrophils # (1.8-7.7) K/mm3 D-Dimer (0-234) ng/mlDDU ABG pH (7.320-7.450) POC ABG pO2 (83-108) mmHg ABG pO2 (80.0-90.0) mm Hg ABG O2 Saturation (95.0-99.0) % Oxyhemoglobin (95.0-99.0) % Sodium 146 H (137-145) mmol/L Potassium 5.9 H (3.6-5.0) mmol/L Chloride 108.0 H (98-107) mmol/L Carbon Dioxide 20 L (22-30) mmol/L BUN 61 H (7-17) mg/dL Creatinine 1.4 H (0.6-1.2) mg/dL Glucose 254 H (65-100) mg/dL POC Glucose 228 H 321 H (70-105) 01/15/20 01/15/20 01/15/20 Range/Units 03:37 03:57 03:57 WBC 14.9 H (4.5-11.0) K/mm3 MCV 75 L (79-97) fl MCH 25 L (28-32) pg RDW 15.4 H (13.2-15.2) % Lymph % (Auto) 8.6 L (13.4-35.0) % [place] # 1.0 H (0.0-0.8) K/mm3 Seg Neutrophils % 84.2 H (40.0-70.0) % Seg Neutrophils # 12.5 H (1.8-7.7) K/mm3 D-Dimer (0-234) ng/mlDDU ABG pH 7.480 H (7.320-7.450) POC ABG pO2 76.7 L (83-108) mmHg ABG pO2 (80.0-90.0) mm Hg ABG O2 Saturation (95.0-99.0) % Oxyhemoglobin (95.0-99.0) % Sodium 152 H (137-145) mmol/L Potassium (3.6-5.0) mmol/L Chloride 113.0 H (98-107) mmol/L Carbon Dioxide (22-30) mmol/L BUN 52 H (7-17) mg/dL Creatinine (0.6-1.2) mg/dL Glucose 288 H (65-100) mg/dL POC Glucose (70-105) 01/15/20 Range/Units 05:50 WBC (4.5-11.0) K/mm3 MCV (79-97) fl MCH (28-32) pg RDW (13.2-15.2) % Lymph % (Auto) (13.4-35.0) % [place] # (0.0-0.8) K/mm3 Seg Neutrophils % (40.0-70.0) % Seg Neutrophils # (1.8-7.7) K/mm3 D-Dimer (0-234) ng/mlDDU ABG pH (7.320-7.450) POC ABG pO2 (83-108) mmHg ABG pO2 (80.0-90.0) mm Hg ABG O2 Saturation (95.0-99.0) % Oxyhemoglobin (95.0-99.0) % Sodium (137-145) mmol/L Potassium (3.6-5.0) mmol/L Chloride (98-107) mmol/L Carbon Dioxide (22-30) mmol/L BUN (7-17) mg/dL Creatinine (0.6-1.2) mg/dL Glucose (65-100) mg/dL POC Glucose 259 H (70-105)
[2020-01-15] MEDS ORDERED: ATROPINE 0.1% (1 MG/10 ML) CARDIAC SYRINGE IV ONE (11:00)
--- NOTE | 2020-01-15 11:02 | Progress Note ---
Assessment and Plan Acute hypoxemic respiratory failure orally intubated on [facility] Severe COVID infection Multifocal pneumonia Extreme obesity ARACELI- vasomotor nephropathy/COVID Thrombocytopenia Hyperglycemia Hypernatrmia -Critical care proning per protocol, get ABG this afternoon -Prone this evening -Wean PEEP down to 14 -Stop Propofol since she has significant bradycardia and use Fentanyl/Midazolam for sedation -Atropine at the bedside - NGT/small bowel feeding tube, continue enteric nutrition. -On Nephro per RD- discussed improvement in renal function. They will re- evaluate the need to change tube feed formula. -Free water flushes for hypernatremia, monitor closely - Avoid nephrotoxins, closely monitor renal function, renally dose all medications -Fluid conservative measures - VAP bundle addressed -CXR, ABG in am -Therapeutic anticoagulation with Lovenox -Permissive hypercapnia is acceptable - continue bronchodilators with pulmonary hygiene per RT -Monitor airway pressures, lung protective strategies - wean off benzodiazepines as soon as possible , reduce the possibility of delirium - prn analgesia per CPOT score - sedation prn for target RASS -2 to -3 - Continue to wean supplemental oxygen for target O2 sats > 92% - conservative fluid management measures as tolerated by hemodynamics and renal function - Bronchodilators with pulmonary hygiene per RT -Antibiotics for CAP , complete course. ID following - Accuchecks with glycemic control per SSI (While critically ill target blood glucose of 140-180 mg/dL; avoid hypoglycemia) - Maintenance of sleep-wake cycle, avoid delirium - Aspiration precautions, HOB >40 -Stress ulcer prophylaxis - Mobility protocol, off loading and skin assessment for pressure ulcer prevention - Monitor hemodynamics closely - Supportive transfusions as indicated to keep HgB >7g/dL COVID SPECIFIC INTERVENTIONS -Airborne, contact isolation for COVID per facility protocols -IV steroids-dexamethasone -Trend d-dimer,and other inflammatory markers per facility protocol -Evaluate for Convalescent plasma therapy- patient is blood less medicine and will not accept COVID convalescent plasma -Continue Remdesivir day 2 of 5. CrCl=84 -Continue ceftriaxone 2 gm IV qday and azithromycin 500 mg PO qday to complete 5 and 3 days respectively for treatment of CAP Monitor QTc Discussed with the ICU team-RT,RN Life threatening condition- COVID 19 ARDS acute hypoxemic respiratory failure on [facility] Mortality/Morbidity- High Complexity of medical decision making- High CONDITION: CRITICAL PROGNOSIS: GUARDED CODE STATUS: FULL CODE The high probability of a clinically significant, sudden or life-threatening deterioration of the [respiratory & neurology, renal ] system(s) required my full and direct attention, intervention and personal management. The aggregate critical care time was [35] minutes without overlap. Time includes spent on; [x] Data Review and interpretation [x] Patient assessment and monitoring of vital signs [x] Documentation [x] Medication orders and management Subjective Date of service: 01/15/20 Principal diagnosis: Shortness of breath Interval history: Follow up fro acute hypoxemic respiratory failure on [facility]; Severe-critical COVID infection: ARACELI; Extreme obesity: Seen and examined. 24 hour events reviewed. Vitals, albs,medications chart and imaging reviewed. supine, on Propofol and Fentanyl with episodes of bradycardia, got as low as 30 and I decided to give a dose of Atropine at the bedside. s/p Prone day #2/5 Remains orally intubated ETT 7.5cm at 21 at the [facility] 30/400/16/50% ABG 7.48/33/76.7 Objective Vital Signs - 12hr 01/14/20 01/14/20 01/14/20 23:08 23:16 23:30 Temperature Pulse Rate 72 106 H 145 H Pulse Rate [ From Monitor] Respiratory 30 H 19 25 H Rate Blood Pressure 137/68 137/68 97/79 O2 Sat by Pulse 96 90 85 Oximetry 01/14/20 01/14/20 01/15/20 23:41 23:46 00:00 Temperature 98.3 F Pulse Rate 101 H 98 H 82 Pulse Rate [ 89 From Monitor] Respiratory 29 H 30 H Rate Blood Pressure 131/76 131/76 124/74 O2 Sat by Pulse 99 99 98 Oximetry 01/15/20 01/15/20 01/15/20 00:16 00:30 00:46 Temperature Pulse Rate 61 55 L 49 L Pulse Rate [ From Monitor] Respiratory 30 H 30 H 30 H Rate Blood Pressure 128/77 125/72 124/67 O2 Sat by Pulse 100 100 99 Oximetry 01/15/20 01/15/20 01/15/20 01:00 01:16 01:30 Temperature Pulse Rate 49 L 47 L 46 L Pulse Rate [ From Monitor] Respiratory 30 H 30 H 30 H Rate Blood Pressure 123/68 125/72 128/70 O2 Sat by Pulse 99 99 99 Oximetry 01/15/20 01/15/2001/14/20 01:46 02:00 02:16 Temperature Pulse Rate 44 L 46 L 45 L Pulse Rate [ From Monitor] Respiratory 30 H 30 H 30 H Rate Blood Pressure 131/71 130/72 133/73 O2 Sat by Pulse 100 100 100 Oximetry 01/15/20 01/15/20 01/15/20 02:30 02:46 03:00 Temperature Pulse Rate 46 L 45 L 45 L Pulse Rate [ From Monitor] Respiratory 30 H 30 H 30 H Rate Blood Pressure 134/71 148/70 128/72 O2 Sat by Pulse 100 100 100 Oximetry 01/15/20 01/15/20 01/15/20 03:15 03:16 03:30 Temperature Pulse Rate 45 L 46 L 44 L Pulse Rate [ 45 L From Monitor] Respiratory 30 H 30 H 30 H Rate Blood Pressure 132/75 130/72 O2 Sat by Pulse 100 100 100 Oximetry 01/15/20 01/15/20 01/15/20 03:46 04:00 04:16 Temperature 98.3 F Pulse Rate 44 L 46 L 45 L Pulse Rate [ From Monitor] Respiratory 30 H 30 H 26 H Rate Blood Pressure 134/75 138/72 132/72 O2 Sat by Pulse 100 100 100 Oximetry 01/15/20 01/15/20 01/15/20 04:30 04:43 04:46 Temperature Pulse Rate 44 L 45 L 45 L Pulse Rate [ From Monitor] Respiratory 30 H 26 H Rate Blood Pressure 136/73 133/70 136/73 O2 Sat by Pulse 100 100 100 Oximetry 01/15/20 01/15/20 01/15/20 05:00 05:16 05:30 Temperature Pulse Rate 42 L 44 L 44 L Pulse Rate [ 45 L From Monitor] Respiratory 30 H 30 H 30 H Rate Blood Pressure 131/70 133/70 134/72 O2 Sat by Pulse 100 100 100 Oximetry 01/15/20 01/15/20 01/15/20 05:45 06:00 06:15 Temperature Pulse Rate 43 L 43 L 43 L Pulse Rate [ From Monitor] Respiratory 30 H 30 H 30 H Rate Blood Pressure 130/71 132/71 136/74 O2 Sat by Pulse 100 100 100 Oximetry 01/15/20 01/15/20 01/15/20 06:31 06:45 07:00 Temperature Pulse Rate 43 L 42 L 43 L Pulse Rate [ From Monitor] Respiratory 30 H 30 H 30 H Rate Blood Pressure 129/69 133/72 135/71 O2 Sat by Pulse 100 100 100 Oximetry 01/15/20 01/15/20 01/15/20 07:15 07:30 07:45 Temperature Pulse Rate 43 L 43 L 44 L Pulse Rate [ From Monitor] Respiratory 30 H 30 H 30 H Rate Blood Pressure 130/73 135/72 137/73 O2 Sat by Pulse 100 100 100 Oximetry 01/15/20 01/15/20 01/15/20 07:59 08:00 08:01 Temperature 98.1 F Pulse Rate 44 L 44 L 44 L Pulse Rate [ From Monitor] Respiratory 30 H Rate Blood Pressure 129/71 O2 Sat by Pulse 100 100 Oximetry 01/15/20 01/15/20 01/15/20 08:15 08:30 08:45 Temperature Pulse Rate 42 L 44 L 44 L Pulse Rate [ From Monitor] Respiratory 30 H 30 H 30 H Rate Blood Pressure 129/70 132/71 126/70 O2 Sat by Pulse 100 100 100 Oximetry 01/15/20 01/15/20 01/15/20 09:00 09:15 09:22 Temperature Pulse Rate 44 L 75 66 Pulse Rate [ From Monitor] Respiratory 30 H 17 Rate Blood Pressure 131/75 131/75 111/46 O2 Sat by Pulse 100 98 Oximetry 01/15/20 09:30 Temperature Pulse Rate 65 Pulse Rate [ From Monitor] Respiratory 25 H Rate Blood Pressure 111/66 O2 Sat by Pulse 98 Oximetry Constitutional: appears uncomfortable, other (Morbidly obese AAW, supine ETT 7.5 at 22cm CHAD) Eyes: non-icteric ENT: oropharynx moist Neck: supple, no lymphadenopathy, no JVD Effort: mildly labored Ascultation: Bilateral: diminished breath sounds, rhonchi Cardiovascular: regular rate and rhythm, other Extremities: no cyanosis, no edema Neurologic: non-focal exam, pupils equal and round, CN II-XII normal Psychiatric: anxious CBC and BMP: 01/16/20 04:00 01/16/20 04:00 ABG, PT/INR, D-dimer: ABG ABG pH 7.480 (7.320-7.450) H 01/15/20 03:37 POC ABG pCO2 33.6 mmHg (32.0-48.0) 01/15/20 03:37 ABG pCO2 41.8 mm Hg 01/14/20 16:00 POC ABG pO2 76.7 mmHg (83-108) L 01/15/20 03:37 ABG pO2 69.3 mm Hg (80.0-90.0) L 01/14/20 16:00 POC ABG HCO3 24.5 01/15/20 03:37 ABG O2 Saturation 94.4 % (95.0-99.0) L 01/14/20 16:00 PT/INR, D-dimer D-Dimer > 13643 ng/mlDDU (0-234) H 01/14/20 09:47 Abnormal lab findings: Abnormal Labs 01/11/20 01/11/20 01/11/20 17:22 17:22 17:22 WBC RBC MCV MCH RDW Plt Count Lymph % (Auto) [place] # Seg Neutrophils % Seg Neuts % (Manual) Lymphocytes % (Manual) Seg Neutrophils # Seg Neutrophils # Man Lymphocytes # (Manual) D-Dimer 622.52 H ABG pH POC ABG pCO2 POC ABG pO2 ABG pO2 ABG O2 Saturation ABG Base Excess ABG Oxyhemoglobin Oxyhemoglobin Sodium Potassium Chloride 97.6 L Carbon Dioxide 18 L BUN Creatinine Glucose 199 H POC Glucose Lactic Acid 2.20 H* Ferritin AST 68 H Lactate Dehydrogenase C-Reactive Protein Total Protein Albumin 3.0 L Coronavirus (PCR) 01/11/20 01/11/20 01/11/20 17:22 17:22 23:29 WBC RBC MCV MCH RDW Plt Count Lymph % (Auto) [place] # Seg Neutrophils % Seg Neuts % (Manual) Lymphocytes % (Manual) Seg Neutrophils # Seg Neutrophils # Man Lymphocytes # (Manual) D-Dimer ABG pH POC ABG pCO2 POC ABG pO2 ABG pO2 ABG O2 Saturation ABG Base Excess ABG Oxyhemoglobin Oxyhemoglobin Sodium Potassium Chloride Carbon Dioxide BUN Creatinine Glucose 202 H POC Glucose Lactic Acid 2.10 H* Ferritin 270.3 H AST Lactate Dehydrogenase 610 H C-Reactive Protein 23.80 H Total Protein Albumin Coronavirus (PCR) 01/12/20 01/12/20 01/12/20 07:07 07:07 09:00 WBC RBC 5.31 H MCV 76 L MCH 25 L RDW 15.5 H Plt Count Lymph % (Auto) 11.2 L [place] # Seg Neutrophils % 85.2 H Seg Neuts % (Manual) Lymphocytes % (Manual) Seg Neutrophils # 9.2 H Seg Neutrophils # Man Lymphocytes # (Manual) D-Dimer ABG pH POC ABG pCO2 POC ABG pO2 ABG pO2 ABG O2 Saturation ABG Base Excess ABG Oxyhemoglobin Oxyhemoglobin Sodium Potassium Chloride Carbon Dioxide 21 L BUN 23 H Creatinine Glucose 206 H POC Glucose Lactic Acid Ferritin AST Lactate Dehydrogenase C-Reactive Protein Total Protein Albumin Coronavirus (PCR) Positive A 01/13/20 01/13/20 01/13/20 01:02 04:45 05:10 WBC RBC MCV MCH RDW Plt Count Lymph % (Auto) [place] # Seg Neutrophils % Seg Neuts % (Manual) Lymphocytes % (Manual) Seg Neutrophils # Seg Neutrophils # Man Lymphocytes # (Manual) D-Dimer > 98852 H ABG pH 7.19 L POC ABG pCO2 56.2 H POC ABG pO2 44.3 L 62.5 L ABG pO2 ABG O2 Saturation ABG Base Excess ABG Oxyhemoglobin 77.5 L 86.5 L Oxyhemoglobin Sodium Potassium Chloride Carbon Dioxide BUN Creatinine Glucose POC Glucose Lactic Acid Ferritin AST Lactate Dehydrogenase C-Reactive Protein Total Protein Albumin Coronavirus (PCR) 01/13/20 01/13/20 01/13/20 05:10 05:54 12:07 WBC RBC MCV MCH RDW Plt Count Lymph % (Auto) [place] # Seg Neutrophils % Seg Neuts % (Manual) Lymphocytes % (Manual) Seg Neutrophils # Seg Neutrophils # Man Lymphocytes # (Manual) D-Dimer ABG pH POC ABG pCO2 POC ABG pO2 ABG pO2 ABG O2 Saturation ABG Base Excess ABG Oxyhemoglobin Oxyhemoglobin Sodium Potassium Chloride Carbon Dioxide BUN Creatinine Glucose POC Glucose 356 H 309 H Lactic Acid Ferritin AST Lactate Dehydrogenase 999 H C-Reactive Protein Total Protein Albumin Coronavirus (PCR) 01/13/20 01/13/20 01/13/20 12:54 18:46 18:50 WBC 14.0 H RBC MCV 76 L MCH 25 L RDW 15.8 H Plt Count 113 L Lymph % (Auto) [place] # Seg Neutrophils % Seg Neuts % (Manual) 88.0 H Lymphocytes % (Manual) 2.0 L Seg Neutrophils # Seg Neutrophils # Man 12.3 H Lymphocytes # (Manual) 0.3 L D-Dimer ABG pH 7.290 L POC ABG pCO2 POC ABG pO2 ABG pO2 60.2 L ABG O2 Saturation 88.6 L ABG Base Excess -2.7 L ABG Oxyhemoglobin Oxyhemoglobin 87.1 L Sodium Potassium Chloride Carbon Dioxide BUN Creatinine Glucose POC Glucose 268 H Lactic Acid Ferritin AST Lactate Dehydrogenase C-Reactive Protein Total Protein Albumin Coronavirus (PCR) 01/13/20 01/14/20 01/14/20 23:53 00:31 03:13 WBC RBC MCV MCH RDW Plt Count Lymph % (Auto) [place] # Seg Neutrophils % Seg Neuts % (Manual) Lymphocytes % (Manual) Seg Neutrophils # Seg Neutrophils # Man Lymphocytes # (Manual) D-Dimer ABG pH POC ABG pCO2 POC ABG pO2 ABG pO2 132.6 H ABG O2 Saturation ABG Base Excess -2.7 L ABG Oxyhemoglobin Oxyhemoglobin Sodium Potassium 5.3 H Chloride Carbon Dioxide BUN 55 H Creatinine 1.6 H Glucose 268 H POC Glucose 259 H Lactic Acid Ferritin AST 46 H Lactate Dehydrogenase C-Reactive Protein Total Protein 6.1 L Albumin 3.1 L Coronavirus (PCR) 01/14/20 01/14/20 01/14/20 05:23 06:06 09:47 WBC RBC MCV MCH RDW Plt Count Lymph % (Auto) [place] # Seg Neutrophils % Seg Neuts % (Manual) Lymphocytes % (Manual) Seg Neutrophils # Seg Neutrophils # Man Lymphocytes # (Manual) D-Dimer > 00678 H ABG pH POC ABG pCO2 POC ABG pO2 ABG pO2 ABG O2 Saturation ABG Base Excess ABG Oxyhemoglobin Oxyhemoglobin Sodium Potassium 5.5 H Chloride 107.6 H Carbon Dioxide 21 L BUN 58 H Creatinine 1.7 H Glucose 231 H POC Glucose 231 H Lactic Acid Ferritin AST Lactate Dehydrogenase C-Reactive Protein Total Protein Albumin Coronavirus (PCR) 01/14/20 01/14/20 01/14/20 09:47 12:20 16:00 WBC RBC MCV MCH RDW Plt Count Lymph % (Auto) [place] # Seg Neutrophils % Seg Neuts % (Manual) Lymphocytes % (Manual) Seg Neutrophils # Seg Neutrophils # Man Lymphocytes # (Manual) D-Dimer ABG pH POC ABG pCO2 POC ABG pO2 ABG pO2 69.3 L ABG O2 Saturation 94.4 L ABG Base Excess ABG Oxyhemoglobin Oxyhemoglobin 92.7 L Sodium Potassium Chloride 107.2 H Carbon Dioxide 21 L BUN 63 H Creatinine 1.5 H Glucose 217 H POC Glucose 238 H Lactic Acid Ferritin AST Lactate Dehydrogenase C-Reactive Protein Total Protein 6.0 L Albumin 2.7 L Coronavirus (PCR) 01/14/20 01/14/20 01/14/20 18:24 19:01 23:50 WBC RBC MCV MCH RDW Plt Count Lymph % (Auto) [place] # Seg Neutrophils % Seg Neuts % (Manual) Lymphocytes % (Manual) Seg Neutrophils # Seg Neutrophils # Man Lymphocytes # (Manual) D-Dimer ABG pH POC ABG pCO2 POC ABG pO2 ABG pO2 ABG O2 Saturation ABG Base Excess ABG Oxyhemoglobin Oxyhemoglobin Sodium 146 H Potassium 5.9 H Chloride 108.0 H Carbon Dioxide 20 L BUN 61 H Creatinine 1.4 H Glucose 254 H POC Glucose 228 H 321 H Lactic Acid Ferritin AST Lactate Dehydrogenase C-Reactive Protein Total Protein Albumin Coronavirus (PCR) 01/15/20 01/15/20 01/15/20 03:37 03:57 03:57 WBC 14.9 H RBC MCV 75 L MCH 25 L RDW 15.4 H Plt Count Lymph % (Auto) 8.6 L [place] # 1.0 H Seg Neutrophils % 84.2 H Seg Neuts % (Manual) Lymphocytes % (Manual) Seg Neutrophils # 12.5 H Seg Neutrophils # Man Lymphocytes # (Manual) D-Dimer ABG pH 7.480 H POC ABG pCO2 POC ABG pO2 76.7 L ABG pO2 ABG O2 Saturation ABG Base Excess ABG Oxyhemoglobin Oxyhemoglobin Sodium 152 H Potassium Chloride 113.0 H Carbon Dioxide BUN 52 H Creatinine Glucose 288 H POC Glucose Lactic Acid Ferritin AST Lactate Dehydrogenase C-Reactive Protein Total Protein Albumin Coronavirus (PCR) 01/15/20 05:50 WBC RBC MCV MCH RDW Plt Count Lymph % (Auto) [place] # Seg Neutrophils % Seg Neuts % (Manual) Lymphocytes % (Manual) Seg Neutrophils # Seg Neutrophils # Man Lymphocytes # (Manual) D-Dimer ABG pH POC ABG pCO2 POC ABG pO2 ABG pO2 ABG O2 Saturation ABG Base Excess ABG Oxyhemoglobin Oxyhemoglobin Sodium Potassium Chloride Carbon Dioxide BUN Creatinine Glucose POC Glucose 259 H Lactic Acid Ferritin AST Lactate Dehydrogenase C-Reactive Protein Total Protein Albumin Coronavirus (PCR) Chest x-ray: image reviewed Allied health notes reviewed: RT
--- NOTE | 2020-01-15 12:38 | Consultation ---
History of Present Illness Consult date: 01/15/20 Consult reason: bradycardia History of present illness: This is a 39-year-old female with a reported past medical history diabetes, obesity, asthma admitted to hospital COVID-19 viral pneumonia. She is currently intubated on mechanical ventilation on isolation protocol. air sampling and monitoring shows intermittent sinus bradycardia, rate ranging in the 40s. There was also report of marked bradycardia, heart rate in the 30s with was treated with atropine. ECG strips is unavailable for review. Heart rate is currently in the 70s. Her presenting ECG shows sinus rhythm with low voltage, rate 59. Cardiology consultation has been requested for evaluation of sinus bradycardia. Past History Past Medical History: diabetes Past Surgical History: No surgical history, Other (Reviewed) Social history: single. denies: smoking, alcohol abuse, prescription drug abuse Family history: diabetes, hypertension Medications and Allergies Allergies Allergy/AdvReac Type Severity Reaction Status Date / Time shellfish derived Allergy Swelling Verified 01/11/20 18:37 Home Medications Medication Instructions Recorded Confirmed Last Taken Type glipiZIDE [Glipizide] 10 mg PO DAILY #30 tablet 08/15/18 01/13/20 Unknown Rx Active Meds: Active Medications Acetaminophen (Tylenol) 650 mg PO Q4H PRN PRN Reason: Pain MILD(1-3)/Fever >100.5/CORDOVA Lipase/Protease/Amylase (Pancreaze Dr 10,500 Unit) 1 each FEEDTUBE PRN PRN PRN Reason: For Clogged Feeding Tube Atropine Sulfate (Atropine 0.1% (Cardiac)) 1 mg IV ONCE PRN PRN Reason: HR < 30 Dexamethasone (Decadron) 6 mg IV Q24HR [facility] Stop: 01/22/20 10:01 Last Admin: 01/15/20 09:45 Dose: 6 mg Documented by: Enoxaparin Sodium (Enoxaparin) 120 mg SUB-Q Q12HR [facility] Last Admin: 01/15/20 09:51 Dose: 120 mg Documented by: Famotidine (Pepcid) 20 mg IV BID [facility] Last Admin: 01/15/20 09:50 Dose: 20 mg Documented by: Fentanyl (Sublimaze) 50 mcg IV Q10MIN PRN PRN Reason: ANALGESIA Last Admin: 01/13/20 02:15 Dose: 50 mcg Documented by: Hydromorphone HCl (Dilaudid) 0.25 mg IV Q4H PRN PRN Reason: Pain, Moderate (4-6) Last Admin: 01/12/20 21:36 Dose: 0.25 mg Documented by: Hydrophilic Ointment (Vaseline Lip Therapy) 1 applic TP Q2HR PRN PRN Reason: Dry Lips Fentanyl Citrate (Fentanyl Drip Premix) 2,000 mcg in 100 mls @ 5.69 mls/hr IV TITR [facility]; Protocol Last Admin: 01/15/20 08:01 Dose: 4 mcg/kg/hr, 22.76 mls/hr Documented by: Midazolam HCl 100 mg/ Sodium (Chloride) 100 mls @ 2 mls/hr IV TITR ASHISH; Protocol Last Admin: 01/15/20 09:43 Dose: 5 mg/hr, 5 mls/hr Documented by: REMDESIVIR 100 mg/ Sodium (Chloride) 250 mls @ 500 mls/hr IV Q24HR@2100 [facility] Stop: 01/17/20 21:29 Last Admin: 01/14/20 22:17 Dose: 500 mls/hr Documented by: Propofol (Diprivan 10 Mg/Ml) 1,000 mg in 100 mls @ 3.414 mls/hr IV TITR ASHISH; Protocol Insulin Glargine (Lantus) 5 units SUB-Q DAILY [facility] Last Admin: 01/15/20 09:51 Dose: 5 units Documented by: Insulin Human Lispro (Humalog) 0 unit SUB-Q Q6H [facility]; Protocol Last Admin: 01/15/20 05:42 Dose: 6 unit Documented by: Midazolam HCl (Versed) 2 mg IV Q10MIN PRN PRN Reason: Sedation Multi-Ingred Cream/Lotion/Oil/Oint (Artificial Tears Ophth Oint) 1 applic OU Q4HR PRN PRN Reason: Dry Eye(s) Ondansetron HCl (Zofran) 4 mg IV Q8H PRN PRN Reason: Nausea And Vomiting Simple Syrup (Simple Syrup) 15 ml FEEDTUBE PRN PRN PRN Reason: Hypoglycemia Simple Syrup (Simple Syrup) 30 ml FEEDTUBE PRN PRN PRN Reason: Hypoglycemia Sodium Bicarbonate (Sodium Bicarbonate) 325 mg FEEDTUBE PRN PRN PRN Reason: For Clogged Feeding Tube Sodium Chloride (Sodium Chloride Flush Syringe 10 Ml) 10 ml IV BID [facility] Last Admin: 01/15/20 09:51 Dose: 10 ml Documented by: Sodium Chloride (Sodium Chloride Flush Syringe 10 Ml) 10 ml IV PRN PRN PRN Reason: LINE FLUSH Sodium Chloride (Nacl 0.9%) 50 ml IV Q24H [facility] Stop: 01/17/20 17:01 Last Admin: 01/14/20 23:00 Dose: 50 ml Documented by: Physical Examination Vital Signs Pulse Ox 96 01/11/20 16:20 General appearance: other (intubated on the vent) Cardiac: Positive: Reg Rate and Rhythm Results 01/15/20 03:57 01/15/20 03:57 CBC 01/15/20 Range/Units 03:57 WBC 14.9 H (4.5-11.0) K/mm3 RBC 4.69 (3.65-5.03) M/mm3 Hgb 11.6 (10.1-14.3) gm/dl Hct 35.3 (30.3-42.9) % Plt Count 223 (140-440) K/mm3 Lymph # 1.3 (1.2-5.4) K/mm3 [place] # 1.0 H (0.0-0.8) K/mm3 Eos # 0.0 (0.0-0.4) K/mm3 Baso # 0.0 (0.0-0.1) K/mm3 Comprehensive Metabolic Panel 01/14/20 01/15/20 Range/Units 19:01 03:57 Sodium 146 H 152 H (137-145) mmol/L Potassium 5.9 H 3.9 D (3.6-5.0) mmol/L Chloride 108.0 H 113.0 H (98-107) mmol/L Carbon Dioxide 20 L 23 (22-30) mmol/L BUN 61 H 52 H (7-17) mg/dL Creatinine 1.4 H 1.1 (0.6-1.2) mg/dL Glucose 254 H 288 H (65-100) mg/dL Calcium 8.6 8.4 (8.4-10.2) mg/dL Assessment and Plan Sinus bradycardia likely vasovagal COVID -19 viral pneumonia Respiratory failure Diabetes Will check a TSH and magnesium.
[2020-01-15] MEDS: ATROPINE 0.1% (1 MG/10 ML) CARDIAC SYRINGE IV PRN ×2 (14:45→19:42)
[2020-01-15 15:05] LABS: C-Reactive Protein 7.6 mg/dL (0.00-1.30)
[2020-01-15] MEDS: REMDESIVIR 100 MG in SODIUM CHLORIDE 0.9% 250ML 250 ML IV SCH (21:05)
[2020-01-15] MEDS: SODIUM CHLORIDE 0.9% 50 ML IVPB IV SCH (21:06)
[2020-01-16] MEDS: INSULIN LISPRO 100 UNIT/ML VIAL 3 mL SUB-Q SCH ×4 (01:06→17:41)
[2020-01-16] MEDS: MIDAZOLAM 100 MG in SODIUM CHLORIDE 0.9% 80 ML IV SCH ×2 (01:59→21:52)
[2020-01-16] MEDS: fentaNYL DRIP Premix 2,000 MCG/100 ML BAG IV SCH ×5 (01:59→21:51)
[2020-01-16 05:31] LABS: Hematocrit 34.8 % (30.3-42.9); Hemoglobin 11.5 gm/dl (10.1-14.3); Mean Corpuscular HGB Conc 33 % (30-34); Mean Corpuscular Volume 74 fl (79-97); Platelet Count 286 K/mm3 (140-440); Red Blood Count 4.68 M/mm3 (3.65-5.03); Red Cell Distribution Width 15.4 % (13.2-15.2)
[2020-01-16 05:41] LABS: BUN/Creatinine Ratio 45; Blood Urea Nitrogen 45 mg/dL (7-17); Calcium 8.4 mg/dL (8.4-10.2); Hemolysis Index 3
[2020-01-16 08:21] LABS: Anisocytosis Few; Basophils % (Manual) 0 % (0.0-1.8); Eosinophils % (Manual) 0 % (0.0-4.3); Hypochromasia 1+; Total Cells Counted 100
[2020-01-16 08:22] LABS: Platelet Estimate Consistent w Auto
--- NOTE | 2020-01-16 09:19 | Progress Note ---
Assessment and Plan Acute hypoxemic respiratory failure orally intubated [place] [facility] [place] Severe COVID infection Multifocal pneumonia Extreme obesity ARACELI- vasomotor nephropathy/COVID Thrombocytopenia Hyperglycemia Hypernatrmia -Critical care proning per protocol, -Prone this evening -Wean PEEP as tolerated -Atropine at the bedside - NGT/small bowel feeding tube, continue enteric nutrition. -Free water flushes for hypernatremia, monitor closely - Avoid nephrotoxins, closely monitor renal function, renally dose all medications -Fluid conservative measures - VAP bundle addressed -CXR, ABG in am -Therapeutic anticoagulation with Lovenox -Permissive hypercapnia is acceptable - continue bronchodilators with pulmonary hygiene per RT -Monitor airway pressures, lung protective strategies - wean off benzodiazepines as soon as possible , reduce the possibility of delirium - prn analgesia per CPOT score - sedation prn for target RASS -2 to -3 - Continue to wean supplemental oxygen for target O2 sats > 92% - conservative fluid management measures as tolerated by hemodynamics and renal function - Bronchodilators with pulmonary hygiene per RT -Antibiotics for CAP , complete course. ID following - Accuchecks with glycemic control per SSI (While critically ill target blood glucose of 140-180 mg/dL; avoid hypoglycemia) - Maintenance of sleep-wake cycle, avoid delirium - Aspiration precautions, HOB >40 -Stress ulcer prophylaxis - Mobility protocol, off loading and skin assessment for pressure ulcer prevention - Monitor hemodynamics closely - Supportive transfusions as indicated to keep HgB >7g/dL COVID SPECIFIC INTERVENTIONS -Airborne, contact isolation for COVID per facility protocols -IV steroids-dexamethasone -Trend d-dimer,and other inflammatory markers per facility protocol -Evaluate for Convalescent plasma therapy- patient is blood less medicine and will not accept COVID convalescent plasma -Continue Remdesivir day 2 of 5. CrCl=84 -Continue ceftriaxone 2 gm IV qday and azithromycin 500 mg PO qday to complete 5 and 3 days respectively for treatment of CAP Monitor QTc Discussed with the ICU team-RTELDER Life threatening condition- COVID 19 ARDS acute hypoxemic respiratory failure on [facility] [place] Mortality/Morbidity- High Complexity of medical decision making- High CONDITION: CRITICAL PROGNOSIS: GUARDED CODE STATUS: FULL CODE The high probability of a clinically significant, sudden or life-threatening deterioration of the [respiratory & neurology, renal ] system(s) required my full and direct attention, intervention and personal management. The aggregate critical care time was [35] minutes without overlap. Time includes spent on; [x] Data Review and interpretation [x] Patient assessment and monitoring of vital signs [x] Documentation [x] Medication orders and management Subjective Date of service: 01/16/20 Principal diagnosis: Shortness of breath Interval history: Follow up fro acute hypoxemic respiratory failure on [facility]; Severe-critical COVID infection: ARACELI; Extreme obesity: Seen and examined. 24 hour events reviewed. Vitals, albs,medications chart and imaging reviewed. Proned on Propofol and Fentanyl s/p Prone day #4/5. Asymmptomatic bradycardia, dropped below 40 overnight, required a dose of Atropine Remains orally intubated ETT 7.5cm at 21 at the lip Objective Vital Signs - 12hr 01/15/20 01/15/20 01/15/20 21:31 21:45 22:01 Temperature Pulse Rate 46 L 74 74 Pulse Rate [ From Monitor] Pulse Rate [ Left Dorsalis Pedis] Pulse Rate [ Left Radial] Pulse Rate [ Right Dorsalis Pedis] Pulse Rate [ Right Radial] Respiratory 30 H 24 15 Rate Blood Pressure 150/81 158/88 160/87 O2 Sat by Pulse 100 99 98 Oximetry 01/15/20 01/15/20 01/15/20 22:15 22:31 22:45 Temperature Pulse Rate 49 L 46 L 44 L Pulse Rate [ From Monitor] Pulse Rate [ Left Dorsalis Pedis] Pulse Rate [ Left Radial] Pulse Rate [ Right Dorsalis Pedis] Pulse Rate [ Right Radial] Respiratory 30 H 16 14 Rate Blood Pressure 144/72 130/68 129/68 O2 Sat by Pulse 88 90 92 Oximetry 01/15/20 01/15/20 01/15/20 23:01 23:15 23:31 Temperature Pulse Rate 42 L 42 L 41 L Pulse Rate [ From Monitor] Pulse Rate [ Left Dorsalis Pedis] Pulse Rate [ Left Radial] Pulse Rate [ Right Dorsalis Pedis] Pulse Rate [ Right Radial] Respiratory 14 12 12 Rate Blood Pressure 131/69 133/71 133/71 O2 Sat by Pulse 93 95 95 Oximetry 01/15/20 01/15/20 01/16/20 23:45 23:52 00:00 Temperature 99.1 F Pulse Rate 41 L 40 L 44 L Pulse Rate [ 44 L From Monitor] Pulse Rate [ 44 L Left Dorsalis Pedis] Pulse Rate [ 44 L Left Radial] Pulse Rate [ 44 L Right Dorsalis Pedis] Pulse Rate [ 44 L Right Radial] Respiratory 9 L 19 Rate Blood Pressure 140/72 141/73 O2 Sat by Pulse 96 96 100 Oximetry 01/16/20 01/16/20 01/16/20 00:01 00:15 00:27 Temperature Pulse Rate 42 L 41 L 40 L Pulse Rate [ From Monitor] Pulse Rate [ Left Dorsalis Pedis] Pulse Rate [ Left Radial] Pulse Rate [ Right Dorsalis Pedis] Pulse Rate [ Right Radial] Respiratory 20 20 Rate Blood Pressure 135/70 141/75 144/75 O2 Sat by Pulse 96 97 97 Oximetry 01/16/20 01/16/20 01/16/20 00:31 00:45 01:01 Temperature Pulse Rate 41 L 39 L 41 L Pulse Rate [ From Monitor] Pulse Rate [ Left Dorsalis Pedis] Pulse Rate [ Left Radial] Pulse Rate [ Right Dorsalis Pedis] Pulse Rate [ Right Radial] Respiratory 15 17 18 Rate Blood Pressure 148/77 150/77 150/77 O2 Sat by Pulse 97 97 96 Oximetry 01/16/20 01/16/20 01/16/20 01:15 01:31 01:45 Temperature Pulse Rate 41 L 41 L 42 L Pulse Rate [ From Monitor] Pulse Rate [ Left Dorsalis Pedis] Pulse Rate [ Left Radial] Pulse Rate [ Right Dorsalis Pedis] Pulse Rate [ Right Radial] Respiratory 20 13 14 Rate Blood Pressure 139/70 133/70 132/66 O2 Sat by Pulse 95 95 95 Oximetry 01/16/20 01/16/20 01/16/20 02:01 02:15 02:31 Temperature Pulse Rate 42 L 39 L 39 L Pulse Rate [ From Monitor] Pulse Rate [ Left Dorsalis Pedis] Pulse Rate [ Left Radial] Pulse Rate [ Right Dorsalis Pedis] Pulse Rate [ Right Radial] Respiratory 16 21 16 Rate Blood Pressure 123/62 133/70 144/74 O2 Sat by Pulse 95 95 96 Oximetry 01/16/20 01/16/20 01/16/20 02:45 03:01 03:15 Temperature Pulse Rate 83 79 74 Pulse Rate [ From Monitor] Pulse Rate [ Left Dorsalis Pedis] Pulse Rate [ Left Radial] Pulse Rate [ Right Dorsalis Pedis] Pulse Rate [ Right Radial] Respiratory 13 22 18 Rate Blood Pressure 196/105 188/99 188/101 O2 Sat by Pulse 98 98 98 Oximetry 01/16/20 01/16/20 01/16/20 03:31 03:35 03:45 Temperature 98.8 F Pulse Rate 72 64 Pulse Rate [ From Monitor] Pulse Rate [ Left Dorsalis Pedis] Pulse Rate [ Left Radial] Pulse Rate [ Right Dorsalis Pedis] Pulse Rate [ Right Radial] Respiratory 18 25 H Rate Blood Pressure 205/107 205/107 O2 Sat by Pulse 98 94 Oximetry 01/16/20 01/16/20 01/16/20 04:00 04:01 04:15 Temperature Pulse Rate 43 L 52 L 47 L Pulse Rate [ 42 L From Monitor] Pulse Rate [ 42 L Left Dorsalis Pedis] Pulse Rate [ 42 L Left Radial] Pulse Rate [ 42 L Right Dorsalis Pedis] Pulse Rate [ 42 L Right Radial] Respiratory 15 20 Rate Blood Pressure 205/107 205/107 O2 Sat by Pulse 100 95 96 Oximetry 01/16/20 01/16/20 01/16/20 04:30 04:45 05:00 Temperature Pulse Rate 45 L 44 L 45 L Pulse Rate [ From Monitor] Pulse Rate [ Left Dorsalis Pedis] Pulse Rate [ Left Radial] Pulse Rate [ Right Dorsalis Pedis] Pulse Rate [ Right Radial] Respiratory 22 22 18 Rate Blood Pressure 165/89 168/90 172/91 O2 Sat by Pulse 96 97 98 Oximetry 01/16/20 01/16/20 01/16/20 05:08 05:15 05:31 Temperature Pulse Rate 43 L 43 L 43 L Pulse Rate [ From Monitor] Pulse Rate [ Left Dorsalis Pedis] Pulse Rate [ Left Radial] Pulse Rate [ Right Dorsalis Pedis] Pulse Rate [ Right Radial] Respiratory 30 H 17 Rate Blood Pressure 170/89 171/89 174/90 O2 Sat by Pulse 98 98 98 Oximetry 01/16/20 01/16/20 01/16/20 05:45 06:00 06:15 Temperature Pulse Rate 41 L 42 L 43 L Pulse Rate [ From Monitor] Pulse Rate [ Left Dorsalis Pedis] Pulse Rate [ Left Radial] Pulse Rate [ Right Dorsalis Pedis] Pulse Rate [ Right Radial] Respiratory 20 17 16 Rate Blood Pressure 171/90 174/91 170/89 O2 Sat by Pulse 98 98 98 Oximetry 01/16/20 01/16/20 01/16/20 06:30 06:45 07:00 Temperature Pulse Rate 43 L 42 L 43 L Pulse Rate [ From Monitor] Pulse Rate [ Left Dorsalis Pedis] Pulse Rate [ Left Radial] Pulse Rate [ Right Dorsalis Pedis] Pulse Rate [ Right Radial] Respiratory 18 26 H 24 Rate Blood Pressure 167/87 164/84 161/86 O2 Sat by Pulse 98 98 98 Oximetry 01/16/20 01/16/20 01/16/20 07:15 07:30 07:45 Temperature Pulse Rate 43 L 44 L 45 L Pulse Rate [ From Monitor] Pulse Rate [ Left Dorsalis Pedis] Pulse Rate [ Left Radial] Pulse Rate [ Right Dorsalis Pedis] Pulse Rate [ Right Radial] Respiratory 16 22 21 Rate Blood Pressure 157/81 159/82 166/84 O2 Sat by Pulse 98 98 97 Oximetry 01/16/20 01/16/20 01/16/20 08:00 08:08 08:15 Temperature Pulse Rate 44 L 42 L 43 L Pulse Rate [ 41 L From Monitor] Pulse Rate [ Left Dorsalis Pedis] Pulse Rate [ Left Radial] Pulse Rate [ Right Dorsalis Pedis] Pulse Rate [ Right Radial] Respiratory 22 15 Rate Blood Pressure 158/83 156/84 157/83 O2 Sat by Pulse 97 97 97 Oximetry 01/16/20 01/16/20 01/16/20 08:30 08:45 09:00 Temperature Pulse Rate 42 L 42 L 42 L Pulse Rate [ From Monitor] Pulse Rate [ Left Dorsalis Pedis] Pulse Rate [ Left Radial] Pulse Rate [ Right Dorsalis Pedis] Pulse Rate [ Right Radial] Respiratory 18 17 20 Rate Blood Pressure 154/82 159/82 159/83 O2 Sat by Pulse 98 98 98 Oximetry Constitutional: appears uncomfortable, other (Morbidly obese AAW, supine ETT 7.5 at 22cm CHAD) Eyes: non-icteric ENT: oropharynx moist Neck: supple, no lymphadenopathy, no JVD Effort: mildly labored Ascultation: Bilateral: diminished breath sounds, rhonchi Cardiovascular: regular rate and rhythm, other Extremities: no cyanosis, no edema Neurologic: non-focal exam, pupils equal and round, CN II-XII normal Psychiatric: anxious CBC and BMP: 01/21/20 05:25 01/21/20 05:25 ABG, PT/INR, D-dimer: ABG ABG pCO2 41.8 mm Hg 01/14/20 16:00 ABG pO2 69.3 mm Hg (80.0-90.0) L 01/14/20 16:00 ABG O2 Saturation 94.4 % (95.0-99.0) L 01/14/20 16:00 ABG pH 7.477 (7.320-7.450) H 01/16/20 03:33 POC ABG pCO2 33.9 mmHg (32.0-48.0) 01/16/20 03:33 POC ABG pO2 86.3 mmHg (83-108) 01/16/20 03:33 POC ABG HCO3 24.5 01/16/20 03:33 PT/INR, D-dimer D-Dimer > 85186 ng/mlDDU (0-234) H 01/14/20 09:47 Abnormal lab findings: Abnormal Labs 01/11/20 01/11/20 01/11/20 17:22 17:22 17:22 WBC RBC MCV MCH RDW Plt Count Lymph % (Auto) T[place] # Seg Neutrophils % Seg Neuts % (Manual) Lymphocytes % (Manual) Seg Neutrophils # Seg Neutrophils # Man Lymphocytes # (Manual) D-Dimer 622.52 H ABG pH POC ABG pCO2 POC ABG pO2 ABG pO2 ABG O2 Saturation ABG Base Excess ABG Oxyhemoglobin Oxyhemoglobin Sodium Potassium Chloride 97.6 L Carbon Dioxide 18 L BUN Creatinine Glucose 199 H POC Glucose Lactic Acid 2.20 H* Ferritin AST 68 H Magnesium Lactate Dehydrogenase C-Reactive Protein Total Protein Albumin 3.0 L TSH Coronavirus (PCR) 01/11/20 01/11/20 01/11/20 17:22 17:22 23:29 WBC RBC MCV MCH RDW Plt Count Lymph % (Auto) [place] # Seg Neutrophils % Seg Neuts % (Manual) Lymphocytes % (Manual) Seg Neutrophils # Seg Neutrophils # Man Lymphocytes # (Manual) D-Dimer ABG pH POC ABG pCO2 POC ABG pO2 ABG pO2 ABG O2 Saturation ABG Base Excess ABG Oxyhemoglobin Oxyhemoglobin Sodium Potassium Chloride Carbon Dioxide BUN Creatinine Glucose 202 H POC Glucose Lactic Acid 2.10 H* Ferritin 270.3 H AST Magnesium Lactate Dehydrogenase 610 H C-Reactive Protein 23.80 H Total Protein Albumin TSH Coronavirus (PCR) 01/12/20 01/12/20 01/12/20 07:07 07:07 09:00 WBC RBC 5.31 H MCV 76 L MCH 25 L RDW 15.5 H Plt Count Lymph % (Auto) 11.2 L Titus # Seg Neutrophils % 85.2 H Seg Neuts % (Manual) Lymphocytes % (Manual) Seg Neutrophils # 9.2 H Seg Neutrophils # Man Lymphocytes # (Manual) D-Dimer ABG pH POC ABG pCO2 POC ABG pO2 ABG pO2 ABG O2 Saturation ABG Base Excess ABG Oxyhemoglobin Oxyhemoglobin Sodium Potassium Chloride Carbon Dioxide 21 L BUN 23 H Creatinine Glucose 206 H POC Glucose Lactic Acid Ferritin AST Magnesium Lactate Dehydrogenase C-Reactive Protein Total Protein Albumin TSH Coronavirus (PCR) Positive A 01/13/20 01/13/20 01/13/20 01:02 04:45 05:10 WBC RBC MCV MCH RDW Plt Count Lymph % (Auto) [place] # Seg Neutrophils % Seg Neuts % (Manual) Lymphocytes % (Manual) Seg Neutrophils # Seg Neutrophils # Man Lymphocytes # (Manual) D-Dimer > 20023 H ABG pH 7.19 L POC ABG pCO2 56.2 H POC ABG pO2 44.3 L 62.5 L ABG pO2 ABG O2 Saturation ABG Base Excess ABG Oxyhemoglobin 77.5 L 86.5 L Oxyhemoglobin Sodium Potassium Chloride Carbon Dioxide BUN Creatinine Glucose POC Glucose Lactic Acid Ferritin AST Magnesium Lactate Dehydrogenase C-Reactive Protein Total Protein Albumin TSH Coronavirus (PCR) 01/13/20 01/13/20 01/13/20 05:10 05:54 12:07 WBC RBC MCV MCH RDW Plt Count Lymph % (Auto) [place] # Seg Neutrophils % Seg Neuts % (Manual) Lymphocytes % (Manual) Seg Neutrophils # Seg Neutrophils # Man Lymphocytes # (Manual) D-Dimer ABG pH POC ABG pCO2 POC ABG pO2 ABG pO2 ABG O2 Saturation ABG Base Excess ABG Oxyhemoglobin Oxyhemoglobin Sodium Potassium Chloride Carbon Dioxide BUN Creatinine Glucose POC Glucose 356 H 309 H Lactic Acid Ferritin AST Magnesium Lactate Dehydrogenase 999 H C-Reactive Protein Total Protein Albumin TSH Coronavirus (PCR) 01/13/20 01/13/20 01/13/20 12:54 18:46 18:50 WBC 14.0 H RBC MCV 76 L MCH 25 L RDW 15.8 H Plt Count 113 L Lymph % (Auto) T[place] # Seg Neutrophils % Seg Neuts % (Manual) 88.0 H Lymphocytes % (Manual) 2.0 L Seg Neutrophils # Seg Neutrophils # Man 12.3 H Lymphocytes # (Manual) 0.3 L D-Dimer ABG pH 7.290 L POC ABG pCO2 POC ABG pO2 ABG pO2 60.2 L ABG O2 Saturation 88.6 L ABG Base Excess -2.7 L ABG Oxyhemoglobin Oxyhemoglobin 87.1 L Sodium Potassium Chloride Carbon Dioxide BUN Creatinine Glucose POC Glucose 268 H Lactic Acid Ferritin AST Magnesium Lactate Dehydrogenase C-Reactive Protein Total Protein Albumin TSH Coronavirus (PCR) 01/13/20 01/14/20 01/14/20 23:53 00:31 03:13 WBC RBC MCV MCH RDW Plt Count Lymph % (Auto) [place] # Seg Neutrophils % Seg Neuts % (Manual) Lymphocytes % (Manual) Seg Neutrophils # Seg Neutrophils # Man Lymphocytes # (Manual) D-Dimer ABG pH POC ABG pCO2 POC ABG pO2 ABG pO2 132.6 H ABG O2 Saturation ABG Base Excess -2.7 L ABG Oxyhemoglobin Oxyhemoglobin Sodium Potassium 5.3 H Chloride Carbon Dioxide BUN 55 H Creatinine 1.6 H Glucose 268 H POC Glucose 259 H Lactic Acid Ferritin AST 46 H Magnesium Lactate Dehydrogenase C-Reactive Protein Total Protein 6.1 L Albumin 3.1 L TSH Coronavirus (PCR) 01/14/20 01/14/20 01/14/20 05:23 06:06 09:47 WBC RBC MCV MCH RDW Plt Count Lymph % (Auto) [place] # Seg Neutrophils % Seg Neuts % (Manual) Lymphocytes % (Manual) Seg Neutrophils # Seg Neutrophils # Man Lymphocytes # (Manual) D-Dimer > 58515 H ABG pH POC ABG pCO2 POC ABG pO2 ABG pO2 ABG O2 Saturation ABG Base Excess ABG Oxyhemoglobin Oxyhemoglobin Sodium Potassium 5.5 H Chloride 107.6 H Carbon Dioxide 21 L BUN 58 H Creatinine 1.7 H Glucose 231 H POC Glucose 231 H Lactic Acid Ferritin AST Magnesium Lactate Dehydrogenase C-Reactive Protein Total Protein Albumin TSH Coronavirus (PCR) 01/14/20 01/14/20 01/14/20 09:47 12:20 16:00 WBC RBC MCV MCH RDW Plt Count Lymph % (Auto) [place] # Seg Neutrophils % Seg Neuts % (Manual) Lymphocytes % (Manual) Seg Neutrophils # Seg Neutrophils # Man Lymphocytes # (Manual) D-Dimer ABG pH POC ABG pCO2 POC ABG pO2 ABG pO2 69.3 L ABG O2 Saturation 94.4 L ABG Base Excess ABG Oxyhemoglobin Oxyhemoglobin 92.7 L Sodium Potassium Chloride 107.2 H Carbon Dioxide 21 L BUN 63 H Creatinine 1.5 H Glucose 217 H POC Glucose 238 H Lactic Acid Ferritin AST Magnesium Lactate Dehydrogenase C-Reactive Protein Total Protein 6.0 L Albumin 2.7 L TSH Coronavirus (PCR) 01/14/20 01/14/20 01/14/20 18:24 19:01 23:50 WBC RBC MCV MCH RDW Plt Count Lymph % (Auto) [place] # Seg Neutrophils % Seg Neuts % (Manual) Lymphocytes % (Manual) Seg Neutrophils # Seg Neutrophils # Man Lymphocytes # (Manual) D-Dimer ABG pH POC ABG pCO2 POC ABG pO2 ABG pO2 ABG O2 Saturation ABG Base Excess ABG Oxyhemoglobin Oxyhemoglobin Sodium 146 H Potassium 5.9 H Chloride 108.0 H Carbon Dioxide 20 L BUN 61 H Creatinine 1.4 H Glucose 254 H POC Glucose 228 H 321 H Lactic Acid Ferritin AST Magnesium Lactate Dehydrogenase C-Reactive Protein Total Protein Albumin TSH Coronavirus (PCR) 01/15/20 01/15/20 01/15/20 03:37 03:57 03:57 WBC 14.9 H RBC MCV 75 L MCH 25 L RDW 15.4 H Plt Count Lymph % (Auto) 8.6 L Titus # 1.0 H Seg Neutrophils % 84.2 H Seg Neuts % (Manual) Lymphocytes % (Manual) Seg Neutrophils # 12.5 H Seg Neutrophils # Man Lymphocytes # (Manual) D-Dimer ABG pH 7.480 H POC ABG pCO2 POC ABG pO2 76.7 L ABG pO2 ABG O2 Saturation ABG Base Excess ABG Oxyhemoglobin Oxyhemoglobin Sodium 152 H Potassium Chloride 113.0 H Carbon Dioxide BUN 52 H Creatinine Glucose 288 H POC Glucose Lactic Acid Ferritin AST Magnesium Lactate Dehydrogenase C-Reactive Protein Total Protein Albumin TSH Coronavirus (PCR) 01/15/20 01/15/20 01/15/20 05:50 11:56 14:35 WBC RBC MCV MCH RDW Plt Count Lymph % (Auto) [place] # Seg Neutrophils % Seg Neuts % (Manual) Lymphocytes % (Manual) Seg Neutrophils # Seg Neutrophils # Man Lymphocytes # (Manual) D-Dimer ABG pH POC ABG pCO2 POC ABG pO2 ABG pO2 ABG O2 Saturation ABG Base Excess ABG Oxyhemoglobin Oxyhemoglobin Sodium Potassium Chloride Carbon Dioxide BUN Creatinine Glucose POC Glucose 259 H 162 H Lactic Acid Ferritin 332.4 H AST Magnesium Lactate Dehydrogenase C-Reactive Protein Total Protein Albumin TSH Coronavirus (PCR) 01/15/20 01/15/20 01/15/20 14:35 14:35 14:35 WBC RBC MCV MCH RDW Plt Count Lymph % (Auto) [place] # Seg Neutrophils % Seg Neuts % (Manual) Lymphocytes % (Manual) Seg Neutrophils # Seg Neutrophils # Man Lymphocytes # (Manual) D-Dimer ABG pH POC ABG pCO2 POC ABG pO2 ABG pO2 ABG O2 Saturation ABG Base Excess ABG Oxyhemoglobin Oxyhemoglobin Sodium Potassium Chloride Carbon Dioxide BUN Creatinine Glucose POC Glucose Lactic Acid Ferritin AST Magnesium 3.00 H Lactate Dehydrogenase 747 H C-Reactive Protein 7.60 H Total Protein Albumin TSH 0.221 L Coronavirus (PCR) 01/15/20 01/15/20 01/15/20 16:18 17:31 23:26 WBC RBC MCV MCH RDW Plt Count Lymph % (Auto) [place] # Seg Neutrophils % Seg Neuts % (Manual) Lymphocytes % (Manual) Seg Neutrophils # Seg Neutrophils # Man Lymphocytes # (Manual) D-Dimer ABG pH 7.510 H POC ABG pCO2 POC ABG pO2 76.6 L ABG pO2 ABG O2 Saturation ABG Base Excess ABG Oxyhemoglobin Oxyhemoglobin Sodium Potassium Chloride Carbon Dioxide BUN Creatinine Glucose POC Glucose 239 H 226 H Lactic Acid Ferritin AST Magnesium Lactate Dehydrogenase C-Reactive Protein Total Protein Albumin TSH Coronavirus (PCR) 01/16/20 01/16/20 01/16/20 03:33 04:00 04:00 WBC 13.6 H RBC MCV 74 L MCH 25 L RDW 15.4 H Plt Count Lymph % (Auto) [place] # Seg Neutrophils % Seg Neuts % (Manual) 91.0 H Lymphocytes % (Manual) 5.0 L Seg Neutrophils # Seg Neutrophils # Man 12.4 H Lymphocytes # (Manual) 0.7 L D-Dimer ABG pH 7.477 H POC ABG pCO2 POC ABG pO2 ABG pO2 ABG O2 Saturation ABG Base Excess ABG Oxyhemoglobin Oxyhemoglobin Sodium 151 H Potassium Chloride 113.8 H Carbon Dioxide BUN 45 H Creatinine Glucose 213 H POC Glucose Lactic Acid Ferritin AST Magnesium Lactate Dehydrogenase C-Reactive Protein Total Protein Albumin TSH Coronavirus (PCR) 01/16/20 05:45 WBC RBC MCV MCH RDW Plt Count Lymph % (Auto) [place] # Seg Neutrophils % Seg Neuts % (Manual) Lymphocytes % (Manual) Seg Neutrophils # Seg Neutrophils # Man Lymphocytes # (Manual) D-Dimer ABG pH POC ABG pCO2 POC ABG pO2 ABG pO2 ABG O2 Saturation ABG Base Excess ABG Oxyhemoglobin Oxyhemoglobin Sodium Potassium Chloride Carbon Dioxide BUN Creatinine Glucose POC Glucose 202 H Lactic Acid Ferritin AST Magnesium Lactate Dehydrogenase C-Reactive Protein Total Protein Albumin TSH Coronavirus (PCR) Allied health notes reviewed: RT
--- NOTE | 2020-01-16 09:23 | Progress Note ---
Assessment and Plan Assessment and plan: Acute hypoxic respiratory failure. Etiology likely secondary to COVID-19 infection. Patient remains on mechanical ventilation. Pulmonary following. COVID-19 pneumonia. Patient was initially diagnosed 8 days prior to admission. Patient has high d-dimer and inflammatory markers. ID following. Continue dexamethasone 6 mg IV for completion of 10 days. Continue remdesivir. Continue to trend inflammatory markers. Full dose anticoagulation given the high d- dimer. Sepsis. Etiology secondary to above. Continue IV antibiotics of ceftriaxone and azithromycin. Morbid obesity. Severe bradycardia this morning 01/15/2020; was in the 30's and was given atropine, and cardiology consulted. Elevated LFTs/transaminitis. Etiology likely secondary to sepsis/COVID-19 Acute kidney injury. Etiology secondary to sepsis/ATN. Nephrology consultation Hyperkalemia. Etiology likely secondary to above. Kayexalate x1. 01/16/2020; patient is still on mechanical ventilation FiO2 40, PEEP 14, patient is on fentanyl, Versed, propofol. Patient proned. We will continue to monitor. Patient is off IV antibiotics. Treated for 5 days with IV ceftriaxone. ID, nephrology and pulmonary consult appreciated The high probability of a clinically significant, sudden or life threatening deterioration of the [respiratory and immunologic] system(s) required my full and direct attention, intervention and personal management. The aggregate critical care time was [33] minutes. This time is in addition to time spent performing reported procedures but includes the following: [x] Data Review and interpretation [x] Patient assessment and monitoring of vital signs [x] Documentation [x] Medication orders and management History Interval history: Patient was seen and evaluated during morning rounds Patient was intubated and sedated, PEEP 14, FiO2 40 Patient is on fentanyl Versed and propofol Patient had severe bradycardia and was given atropine Cardiology consulted Hospitalist Physical - Physical exam Narrative exam: Patient is intubated and on mechanical ventilation The patient is obese. Vital signs as documented. Head exam is unremarkable. No scleral icterus . Neck is without jugular venous distension, thyromegaly, or carotid bruits. On mechanical ventilation Cardiac exam reveals regular rate and Rhythm. Abdominal exam reveals normal bowel sounds, nontender, no organomegaly. Extremities are nonedematous and both femoral and pedal pulses are normal. 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 - Constitutional Vitals: Temp Pulse Resp BP Pulse Ox 98.8 F 42 L 20 159/83 98 01/16/20 03:35 01/16/20 09:00 01/16/20 09:00 01/16/20 09:00 01/16/20 09:00 General appearance: Present: obese, other (orally intubation-sedated) Results - Labs CBC & Chem 7: 01/16/20 04:00 01/16/20 04:00 Labs: Laboratory Last Values WBC 13.6 K/mm3 (4.5-11.0) H 01/16/20 04:00 RBC 4.68 M/mm3 (3.65-5.03) 01/16/20 04:00 Hgb 11.5 gm/dl (10.1-14.3) 01/16/20 04:00 Hct 34.8 % (30.3-42.9) 01/16/20 04:00 MCV 74 fl (79-97) L 01/16/20 04:00 MCH 25 pg (28-32) L 01/16/20 04:00 MCHC 33 % (30-34) 01/16/20 04:00 RDW 15.4 % (13.2-15.2) H 01/16/20 04:00 Plt Count 286 K/mm3 (140-440) 01/16/20 04:00 Lymph % (Auto) 8.6 % (13.4-35.0) L 01/15/20 03:57 [place] % (Auto) 7.0 % (0.0-7.3) 01/15/20 03:57 Eos % (Auto) 0.0 % (0.0-4.3) 01/15/20 03:57 Baso % (Auto) 0.2 % (0.0-1.8) 01/15/20 03:57 Lymph # 1.3 K/mm3 (1.2-5.4) 01/15/20 03:57 [place] # 1.0 K/mm3 (0.0-0.8) H 01/15/20 03:57 Eos # 0.0 K/mm3 (0.0-0.4) 01/15/20 03:57 Baso # 0.0 K/mm3 (0.0-0.1) 01/15/20 03:57 Seg Neutrophils % 84.2 % (40.0-70.0) H 01/15/20 03:57 Add Manual Diff Complete 01/16/20 04:00 Total Counted 100 01/16/20 04:00 Seg Neutrophils # 12.5 K/mm3 (1.8-7.7) H 01/15/20 03:57 Seg Neuts % (Manual) 91.0 % (40.0-70.0) H 01/16/20 04:00 Band Neutrophils % 0 % 01/16/20 04:00 Lymphocytes % (Manual) 5.0 % (13.4-35.0) L 01/16/20 04:00 Reactive Lymphs % (Man) 0 % 01/16/20 04:00 Monocytes % (Manual) 1.0 % (0.0-7.3) 01/16/20 04:00 Eosinophils % (Manual) 0 % (0.0-4.3) 01/16/20 04:00 Basophils % (Manual) 0 % (0.0-1.8) 01/16/20 04:00 Metamyelocytes % 3.0 % 01/16/20 04:00 Myelocytes % 0 % 01/16/20 04:00 Promyelocytes % 0 % 01/16/20 04:00 Blast Cells % 0 % 01/16/20 04:00 Nucleated RBC % Not Reportable 01/16/20 04:00 Seg Neutrophils # Man 12.4 K/mm3 (1.8-7.7) H 01/16/20 04:00 Band Neutrophils # 0.0 K/mm3 01/16/20 04:00 Lymphocytes # (Manual) 0.7 K/mm3 (1.2-5.4) L 01/16/20 04:00 Abs React Lymphs (Man) 0.0 K/mm3 01/16/20 04:00 Monocytes # (Manual) 0.1 K/mm3 (0.0-0.8) 01/16/20 04:00 Eosinophils # (Manual) 0.0 K/mm3 (0.0-0.4) 01/16/20 04:00 Basophils # (Manual) 0.0 K/mm3 (0.0-0.1) 01/16/20 04:00 Metamyelocytes # 0.4 K/mm3 01/16/20 04:00 Myelocytes # 0.0 K/mm3 01/16/20 04:00 Promyelocytes # 0.0 K/mm3 01/16/20 04:00 Blast Cells # 0.0 K/mm3 01/16/20 04:00 WBC Morphology Not Reportable 01/16/20 04:00 Hypersegmented Neuts Not Reportable 01/16/20 04:00 Hyposegmented Neuts Not Reportable 01/16/20 04:00 Hypogranular Neuts Not Reportable 01/16/20 04:00 Smudge Cells Not Reportable 01/16/20 04:00 Toxic Granulation Not Reportable 01/16/20 04:00 Toxic Vacuolation Not Reportable 01/16/20 04:00 Dohle Bodies Not Reportable 01/16/20 04:00 Pelger-Huet Anomaly Not Reportable 01/16/20 04:00 Shanti Rods Not Reportable 01/16/20 04:00 Platelet Estimate Consistent w auto 01/16/20 04:00 Clumped Platelets Not Reportable 01/16/20 04:00 Plt Clumps, EDTA Not Reportable 01/16/20 04:00 Large Platelets Not Reportable 01/16/20 04:00 Giant Platelets Not Reportable 01/16/20 04:00 Platelet Satelliting Not Reportable 01/16/20 04:00 Plt Morphology Comment Not Reportable 01/16/20 04:00 RBC Morphology Not Reportable 01/16/20 04:00 Dimorphic RBCs Not Reportable 01/16/20 04:00 Polychromasia Not Reportable 01/16/20 04:00 Hypochromasia 1+ 01/16/20 04:00 Poikilocytosis Not Reportable 01/16/20 04:00 Anisocytosis Few 01/16/20 04:00 Microcytosis Not Reportable 01/16/20 04:00 Macrocytosis Not Reportable 01/16/20 04:00 Spherocytes Not Reportable 01/16/20 04:00 Pappenheimer Bodies Not Reportable 01/16/20 04:00 Sickle Cells Not Reportable 01/16/20 04:00 Target Cells Not Reportable 01/16/20 04:00 Tear Drop Cells Not Reportable 01/16/20 04:00 Ovalocytes Not Reportable 01/16/20 04:00 Helmet Cells Not Reportable 01/16/20 04:00 L[place]-Stroud Bodies Not Reportable 01/16/20 04:00 [place] Rings Not Reportable 01/16/20 04:00 Franco Cells Not Reportable 01/16/20 04:00 Bite Cells Not Reportable 01/16/20 04:00 Crenated Cell Not Reportable 01/16/20 04:00 Elliptocytes Not Reportable 01/16/20 04:00 Acanthocytes (Spur) Not Reportable 01/16/20 04:00 Rouleaux Not Reportable 01/16/20 04:00 Hemoglobin C Crystals Not Reportable 01/16/20 04:00 Schistocytes Not Reportable 01/16/20 04:00 Malaria parasites Not Reportable 01/16/20 04:00 Gurmeet Bodies Not Reportable 01/16/20 04:00 Hem Pathologist Commnt No 01/16/20 04:00 D-Dimer > 49439 ng/mlDDU (0-234) H 01/14/20 09:47 ABG pCO2 41.8 mm Hg 01/14/20 16:00 ABG pO2 69.3 mm Hg (80.0-90.0) L 01/14/20 16:00 ABG HCO3 25.4 mmol/L (20.0-26.0) 01/14/20 16:00 ABG O2 Saturation 94.4 % (95.0-99.0) L 01/14/20 16:00 ABG O2 Content 16.0 (0.0-44) 01/14/20 16:00 ABG Base Excess 0.5 mmol/L (-2.0-3.0) 01/14/20 16:00 ABG pH 7.477 (7.320-7.450) H 01/16/20 03:33 POC ABG pCO2 33.9 mmHg (32.0-48.0) 01/16/20 03:33 ABG Oxyhemoglobin 86.5 (94-98) L 01/13/20 04:45 ABG Carboxyhemoglobin 1.3 % (0.0-5.0) 01/14/20 16:00 POC ABG pO2 86.3 mmHg (83-108) 01/16/20 03:33 ABG Methemoglobin 0.5 % (0.0-1.5) 01/14/20 16:00 POC ABG HCO3 24.5 01/16/20 03:33 POC ABG Base Excess 1.4 01/16/20 03:33 ABG Hemoglobin 12.6 (12.0-17.5) 01/16/20 03:33 Oxyhemoglobin 92.7 % (95.0-99.0) L 01/14/20 16:00 Carboxyhemoglobin 0.9 (0.5-1.5) 01/13/20 04:45 FiO2 40 01/16/20 03:33 Sodium 151 mmol/L (137-145) H 01/16/20 04:00 Potassium 4.0 mmol/L (3.6-5.0) 01/16/20 04:00 Chloride 113.8 mmol/L (98-107) H 01/16/20 04:00 Carbon Dioxide 25 mmol/L (22-30) 01/16/20 04:00 Anion Gap 16 mmol/L 01/16/20 04:00 BUN 45 mg/dL (7-17) H 01/16/20 04:00 Creatinine 1.0 mg/dL (0.6-1.2) 01/16/20 04:00 Estimated GFR > 60 ml/min 01/16/20 04:00 BUN/Creatinine Ratio 45 % 01/16/20 04:00 Glucose 213 mg/dL (65-100) H 01/16/20 04:00 POC Glucose 202 (70-105) H 01/16/20 05:45 Lactic Acid 1.40 mmol/L (0.7-2.0) 01/12/20 07:07 Calcium 8.4 mg/dL (8.4-10.2) 01/16/20 04:00 Total Bilirubin 0.20 mg/dL (0.1-1.2) 01/14/20 09:47 AST 40 units/L (5-40) 01/14/20 09:47 ALT 32 units/L (7-56) 01/14/20 09:47 Alkaline Phosphatase 98 units/L (35-129) 01/14/20 09:47 Magnesium 3.00 mg/dL (1.7-2.3) H 01/15/20 14:35 Ferritin 332.4 ng/mL (10.0-200.0) H 01/15/20 14:35 Total Protein 6.0 g/dL (6.3-8.2) L 01/14/20 09:47 Albumin 2.7 g/dL (3.9-5) L 01/14/20 09:47 Albumin/Globulin Ratio 0.8 % 01/14/20 09:47 Lactate Dehydrogenase 747 units/L (91-180) H 01/15/20 14:35 C-Reactive Protein 7.60 mg/dL (0.00-1.30) H 01/15/20 14:35 Procalcitonin 0.33 ng/mL (<0.15) 01/11/20 17:22 TSH 0.221 mlU/mL (0.270-4.200) L 01/15/20 14:35 Free T4 1.23 ng/dL (0.76-1.46) 01/15/20 14:35 Urine Color Yellow (Yellow) 01/11/20 21:50 Urine Turbidity Clear (Clear) 01/11/20 21:50 Urine pH 6.0 (5.0-7.0) 01/11/20 21:50 Ur Specific [place] 1.030 (1.003-1.030) 01/11/20 21:50 Urine Protein >500 mg/dL (Negative) 01/11/20 21:50 Urine Glucose (UA) >=500 mg/dL (Negative) 01/11/20 21:50 Urine Ketones 20 mg/dL (Negative) 01/11/20 21:50 Urine Blood Mod (Negative) 01/11/20 21:50 Urine Nitrite Neg (Negative) 01/11/20 21:50 Urine Bilirubin Neg (Negative) 01/11/20 21:50 Urine Urobilinogen < 2.0 mg/dL (<2.0) 01/11/20 21:50 Ur Leukocyte Esterase Neg (Negative) 01/11/20 21:50 Urine WBC (Auto) 3.0 /HPF (0.0-6.0) 01/11/20 21:50 Urine RBC (Auto) 1.0 /HPF (0.0-6.0) 01/11/20 21:50 U Epithel Cells (Auto) < 1.0 /HPF (0-13.0) 01/11/20 21:50 Urine Bacteria (Auto) 1+ /HPF (Negative) 01/11/20 21:50 Coronavirus (PCR) Positive (Negative) A 01/12/20 09:00 Blood Type B POSITIVE 01/11/20 19:18 Antibody Screen Negative 01/11/20 19:18 Microbiology: Microbiology 01/11/20 17:22 Peripheral/Venous Blood Culture - Preliminary NO GROWTH AFTER 4 DAYS 01/11/20 17:22 Peripheral/Venous Blood Culture - Preliminary NO GROWTH AFTER 4 DAYS 01/13/20 Unknown Tracheal Aspirate Sputum Culture - Final De Oliveira/IV: Voiding Method Indwelling Catheter IV Catheter Type [Right Upper PICC Line arm] IV Catheter Type [Right Hand] INT / Saline Lock IV Catheter Type [Left Forearm Peripheral IV ] IV Catheter Type [Right Peripheral IV Antecubital] Active Medications - Current Medications Current Medications: Generic Name Dose Route Start Last Admin Trade Name Freq PRN Reason Stop Dose Admin Acetaminophen 650 mg 01/11/20 18:55 Tylenol PO Q4H PRN Pain MILD(1-3)/Fever >100.5/CORDOVA Lipase/Protease/Amylase 1 each 01/14/20 11:00 Pancreaniceto Marley 10,500 Unit FEEDTUBE PRN PRN For Clogged Feeding Tube Atropine Sulfate 1 mg 01/15/20 12:00 01/15/20 19:42 Atropine 0.1% (Cardiac) IV 1 mg ONCE PRN Administration HR < 40 Dexamethasone 6 mg 01/13/20 12:00 01/15/20 09:45 Decadron IV 01/22/20 10:01 6 mg Q24HR ASHISH Administration Enoxaparin Sodium 120 mg 01/13/20 12:00 01/15/20 21:04 Enoxaparin SUB-Q 120 mg Q12HR ASHISH Administration Famotidine 20 mg 01/13/20 10:00 01/15/20 21:04 Pepcid IV 20 mg BID ASHISH Administration Fentanyl 50 mcg 01/13/20 01:52 01/13/20 02:15 Sublimaze IV 50 mcg Q10MIN PRN Administration ANALGESIA Hydromorphone HCl 0.25 mg 01/11/20 18:59 01/12/20 21:36 Dilaudid IV 0.25 mg Q4H PRN Administration Pain, Moderate (4-6) Hydrophilic Ointment 1 applic 01/13/20 01:52 Vaseline Lip Therapy TP Q2HR PRN Dry Lips Fentanyl Citrate 2,000 mcg in 100 mls @ 5.69 mls/hr 01/13/20 02:00 01/16/20 06:41 Fentanyl Drip Premix IV 4 mcg/kg/hr TITR ASHISH 22.76 mls/hr Administration Protocol 1 MCG/KG/HR Midazolam HCl 100 mg/ Sodium 100 mls @ 2 mls/hr 01/13/20 02:00 01/16/20 01:59 Chloride IV 5 mg/hr TITR ASHISH 5 mls/hr Administration Protocol 2 MG/HR REMDESIVIR 100 mg/ Sodium 250 mls @ 500 mls/hr 01/14/20 21:00 01/15/20 21:05 Chloride IV 01/17/20 21:29 500 mls/hr Q24HR@2100 ASHISH Administration Propofol 1,000 mg in 100 mls @ 3.414 mls/hr 01/14/20 23:21 01/16/20 07:40 Diprivan 10 Mg/Ml IV 5 mcg/kg/min TITR ASHISH 3.414 mls/hr Administration Protocol 5 MCG/KG/MIN Insulin Glargine 10 units 01/16/20 10:00 Lantus SUB-Q DAILY [facility] Insulin Human Lispro 0 unit 01/13/20 11:00 01/16/20 06:31 Humalog SUB-Q 4 unit Q6H [facility] Administration Protocol Midazolam HCl 2 mg 01/13/20 01:52 Versed IV Q10MIN PRN Sedation Multi-Ingred Cream/Lotion/Oil/Oint 1 applic 01/13/20 01:52 Artificial Tears Ophth Oint OU Q4HR PRN Dry Eye(s) Ondansetron HCl 4 mg 01/11/20 18:55 Zofran IV Q8H PRN Nausea And Vomiting Simple Syrup 15 ml 01/14/20 11:00 Simple Syrup FEEDTUBE PRN PRN Hypoglycemia Simple Syrup 30 ml 01/14/20 11:00 Simple Syrup FEEDTUBE PRN PRN Hypoglycemia Sodium Bicarbonate 325 mg 01/14/20 11:00 Sodium Bicarbonate FEEDTUBE PRN PRN For Clogged Feeding Tube Sodium Chloride 10 ml 01/11/20 22:00 01/15/20 21:06 Sodium Chloride Flush Syringe 10 Ml IV 10 ml BID ASHISH Administration Sodium Chloride 10 ml 01/11/20 18:55 Sodium Chloride Flush Syringe 10 Ml IV PRN PRN LINE FLUSH Sodium Chloride 50 ml 01/13/20 17:00 01/15/20 21:06 Nacl 0.9% IV 01/17/20 17:01 50 ml Q24H ASHISH Administration Nutrition/Malnutrition Assess - Dietary Evaluation Nutrition/Malnutrition Findings: Nutrition Notes Start: 01/13/20 08:58 Freq: Status: Active Protocol: Document 01/14/20 12:46 MK (Rec: 01/14/20 12:51 MK [id number]) Co-Sign 01/14/20 12:46 LP Nutrition Notes Need for Assessment generated from: MD Order Initial or Follow up Assessment Current Diagnosis Diabetes,Sepsis,Respiratory Failure Other Pertinent Diagnosis Pneu, COVID-19 (+) Current Diet Cardiac/consistent CHO Labs/Tests Reviewed Pertinent Medications Propofol Height 4 ft 11 in Weight 118.5 kg [place] Body Weight (kg) 43.18 BMI 52.7 Weight Status Morbidly Obese Subjective/Other Information MD consult for TF. Pt remains on vent. Burn Absent Trauma Absent GI Symptoms None Current % PO Negligible Minimum of two criteria No physical signs of malnutrition #1 Nutrition Diagnosis Inadequate oral intake Diagnosis Progress(for reassessment Continues documentation) Is patient on ventilator? Yes Is Patient Ambulatory and/or Out of Bed No REE-([place]-confined to bed) 2132.880 Kcal/Kg value to use for calculation 13 Approximate Energy Requirements Using 1541 kcal/Kg Calculation Used for Recommendations Kcal/kg Additional Notes Protein needs are up to 108g ( up to 2.5g/kg) Fluid needs are 1ml/kcal Nutrition Intervention Change Diet Order: TF Nutrition Support: Nepro at 40ml/hr Flush with 180ml q4h Kcal 1,728 Protein (gm) 78 Fluid (mL) 698 Goal #1 TF start/tolerance Anticipated Discharge Needs: Unable to determine at this time Follow-Up By: 01/16/20 Additional Comments FU for TF start and tolerance
[2020-01-16] MEDS: dexAMETHasone 4 MG/ML VIAL IV SCH (09:42)
[2020-01-16] MEDS: FAMOTIDINE 20 MG/2 ML INJ IV SCH ×2 (09:42→21:24)
[2020-01-16] MEDS: ENOXAPARIN 120 MG/0.8 ML INJ SUB-Q SCH ×2 (09:43→21:24)
--- NOTE | 2020-01-16 11:00 | Progress Note ---
Assessment and Plan Sinus bradycardia likely vasovagal TSH 0.221 COVID -19 viral pneumonia Respiratory failure Diabetes Conservative cardiac management. Subjective Date of service: 01/16/20 Principal diagnosis: Shortness of breath Interval history: Patient remains intubated on mechanical ventilation. She was given Atropine 1mg overnight for heart rate of 38. Curently, telemetry shows sinus bradycardia, rate ranging in the low 40s. Objective Vital Signs Temp Pulse Pulse Pulse Pulse Pulse Pulse 01/16/20 09:00 42 L 01/16/20 08:45 42 L 01/16/20 08:30 42 L 01/16/20 08:15 43 L 01/16/20 08:08 42 L 01/16/20 08:00 98.1 F 44 L 41 L 01/16/20 07:45 45 L 01/16/20 07:30 44 L 01/16/20 07:15 43 L 01/16/20 07:00 43 L 01/16/20 06:45 42 L 01/16/20 06:30 43 L 01/16/20 06:15 43 L 01/16/20 06:00 42 L 01/16/20 05:45 41 L 01/16/20 05:31 43 L 01/16/20 05:15 43 L 01/16/20 05:08 43 L 01/16/20 05:00 45 L 01/16/20 04:45 44 L 01/16/20 04:30 45 L 01/16/20 04:15 47 L 01/16/20 04:01 52 L 01/16/20 04:00 43 L 42 L 42 L 42 L 42 L 42 L 01/16/20 03:45 64 01/16/20 03:35 98.8 F 01/16/20 03:31 72 01/16/20 03:15 74 01/16/20 03:01 79 01/16/20 02:45 83 01/16/20 02:31 39 L 01/16/20 02:15 39 L 01/16/20 02:01 42 L 01/16/20 01:45 42 L 01/16/20 01:31 41 L 01/16/20 01:15 41 L 01/16/20 01:01 41 L 01/16/20 00:45 39 L 01/16/20 00:31 41 L 01/16/20 00:27 40 L 09/23/20 00:15 41 L 01/16/20 00:01 42 L 01/16/20 00:00 99.1 F 44 L 44 L 44 L 44 L 44 L 44 L 01/15/20 23:52 40 L 01/15/20 23:45 41 L 01/15/20 23:31 41 L 01/15/20 23:15 42 L 01/15/20 23:01 42 L 01/15/20 22:45 44 L 01/15/20 22:31 46 L 01/15/20 22:15 49 L 01/15/20 22:01 74 01/15/20 21:45 74 01/15/20 21:31 46 L 01/15/20 21:15 48 L 01/15/20 21:01 56 L 01/15/20 20:45 63 01/15/20 20:31 66 01/15/20 20:15 84 01/15/20 20:06 76 01/15/20 20:01 77 01/15/20 20:00 98.2 F 66 66 66 66 66 66 01/15/20 19:45 83 01/15/20 19:31 40 L 01/15/20 19:15 41 L 01/15/20 19:01 40 L 01/15/20 18:45 40 L 01/15/20 18:30 44 L 01/15/20 18:15 48 L 01/15/20 18:01 45 L 01/15/20 17:45 44 L 01/15/20 17:31 48 L 01/15/20 17:15 46 L 01/15/20 17:00 46 L 01/15/20 16:45 49 L 01/15/20 16:31 51 L 01/15/20 16:15 68 01/15/20 16:01 70 01/15/20 16:00 97.6 F 70 01/15/20 15:45 75 01/15/20 15:31 79 01/15/20 15:15 84 01/15/20 15:01 40 L 01/15/20 14:45 40 L 01/15/20 14:31 43 L 01/15/20 14:15 40 L 01/15/20 14:01 42 L 01/15/20 13:45 41 L 01/15/20 13:31 42 L 01/15/20 13:15 43 L 01/15/20 13:01 43 L 01/15/20 12:45 45 L 01/15/20 12:31 45 L 01/15/20 12:15 46 L 01/15/20 12:06 46 L 01/15/20 12:00 97.6 F 50 L 01/15/20 11:45 58 L 01/15/20 11:31 65 01/15/20 11:15 72 01/15/20 11:01 75 Resp BP Pulse Ox 01/16/20 09:00 20 159/83 98 01/16/20 08:45 17 159/82 98 01/16/20 08:30 18 154/82 98 01/16/20 08:15 15 157/83 97 01/16/20 08:08 156/84 97 01/16/20 08:00 22 158/83 97 01/16/20 07:45 21 166/84 97 01/16/20 07:30 22 159/82 98 01/16/20 07:15 16 157/81 98 01/16/20 07:00 24 161/86 98 01/16/20 06:45 26 H 164/84 98 01/16/20 06:30 18 167/87 98 01/16/20 06:15 16 170/89 98 01/16/20 06:00 17 174/91 98 01/16/20 05:45 20 171/90 98 01/16/20 05:31 17 174/90 98 01/16/20 05:15 30 H 171/89 98 01/16/20 05:08 170/89 98 01/16/20 05:00 18 172/91 98 01/16/20 04:45 22 168/90 97 01/16/20 04:30 22 165/89 96 01/16/20 04:15 20 205/107 96 01/16/20 04:01 15 205/107 95 01/16/20 04:00 100 01/16/20 03:45 25 H 205/107 94 01/16/20 03:35 01/16/20 03:31 18 205/107 98 01/16/20 03:15 18 188/101 98 01/16/20 03:01 22 188/99 98 01/16/20 02:45 13 196/105 98 09/23/20 02:31 16 144/74 96 01/16/20 02:15 21 133/70 95 01/16/20 02:01 16 123/62 95 01/16/20 01:45 14 132/66 95 01/16/20 01:31 13 133/70 95 01/16/20 01:15 20 139/70 95 01/16/20 01:01 18 150/77 96 01/16/20 00:45 17 150/77 97 01/16/20 00:31 15 148/77 97 01/16/20 00:27 144/75 97 01/16/20 00:15 20 141/75 97 01/16/20 00:01 20 135/70 96 01/16/20 00:00 100 01/15/20 23:52 19 141/73 96 01/15/20 23:45 9 L 140/72 96 01/15/20 23:31 12 133/71 95 01/15/20 23:15 12 133/71 95 01/15/20 23:01 14 131/69 93 01/15/20 22:45 14 129/68 92 01/15/20 22:31 16 130/68 90 01/15/20 22:15 30 H 144/72 88 01/15/20 22:01 15 160/87 98 01/15/20 21:45 24 158/88 99 01/15/20 21:31 30 H 150/81 100 01/15/20 21:15 30 H 159/83 100 01/15/20 21:01 30 H 168/88 100 01/15/20 20:45 30 H 172/93 99 01/15/20 20:31 30 H 174/94 98 01/15/20 20:15 30 H 208/97 97 01/15/20 20:06 192/105 100 01/15/20 20:01 28 H 194/105 100 01/15/20 20:00 100 01/15/20 19:45 28 H 200/108 100 01/15/20 19:31 30 H 148/77 100 01/15/20 19:15 30 H 144/77 100 01/15/20 19:01 30 H 149/77 100 01/15/20 18:45 29 H 134/73 100 01/15/20 18:30 28 H 116/64 100 01/15/20 18:15 29 H 109/55 99 01/15/20 18:01 30 H 124/64 99 01/15/20 17:45 29 H 140/74 99 01/15/20 17:31 29 H 143/77 99 01/15/20 17:15 30 H 144/80 99 01/15/20 17:00 20 143/80 99 01/15/20 16:45 22 148/80 98 01/15/20 16:31 29 H 149/81 96 01/15/20 16:15 30 H 176/102 91 01/15/20 16:01 30 H 179/98 100 01/15/20 16:00 95 01/15/20 15:45 30 H 180/100 100 01/15/20 15:31 30 H 180/102 100 01/15/20 15:15 30 H 188/104 100 01/15/20 15:01 15 139/74 99 01/15/20 14:45 30 H 139/74 100 01/15/20 14:31 27 H 140/78 100 01/15/20 14:15 30 H 147/76 100 01/15/20 14:01 22 138/77 100 01/15/20 13:45 30 H 143/76 100 01/15/20 13:31 30 H 138/75 100 01/15/20 13:15 30 H 143/76 100 01/15/20 13:01 30 H 145/77 100 01/15/20 12:45 30 H 151/77 100 01/15/20 12:31 26 H 145/77 100 01/15/20 12:15 15 143/78 100 01/15/20 12:06 153/80 100 01/15/20 12:00 30 H 161/81 100 01/15/20 11:45 29 H 176/86 100 01/15/20 11:31 29 H 179/93 100 01/15/20 11:15 30 H 181/96 100 01/15/20 11:01 30 H 176/97 100 - Physical Examination Narrative exam: Deferred due to isolation protocol. Cardiac: Positive: Bradycardia - Labs and Meds Cardiac Enzymes 01/15/20 Range/Units 14:35 Lactate Dehydrogenase 747 H (91-180) units/L CBC 01/16/20 Range/Units 04:00 WBC 13.6 H (4.5-11.0) K/mm3 RBC 4.68 (3.65-5.03) M/mm3 Hgb 11.5 (10.1-14.3) gm/dl Hct 34.8 (30.3-42.9) % Plt Count 286 (140-440) K/mm3 Comprehensive Metabolic Panel 01/16/20 Range/Units 04:00 Sodium 151 H (137-145) mmol/L Potassium 4.0 (3.6-5.0) mmol/L Chloride 113.8 H (98-107) mmol/L Carbon Dioxide 25 (22-30) mmol/L BUN 45 H (7-17) mg/dL Creatinine 1.0 (0.6-1.2) mg/dL Glucose 213 H (65-100) mg/dL Calcium 8.4 (8.4-10.2) mg/dL - Allied health notes Allied health notes reviewed: RT
[2020-01-16] MEDS: INSULIN GLARGINE 100 UNITS/ML SUB-Q SCH (11:06)
--- NOTE | 2020-01-16 11:18 | Progress Note ---
Assessment and Plan Cultures: Blood culture 01/11/2020 no growth today Urine culture 01/11/2020 10-100,000 normal skin cristina Tracheal aspirate a 01/13/2020 no growth today A/P: 39-year-old female past medical history morbid obesity, diabetes admitted with severe COVID-19 pneumonia. #Sepsis: Fever resolved, leukocytosis up likely due to steroids. #Acute hypoxemic respiratory failure: Likely secondary to COVID-19 infection. remains mechanically ventilated #COVID-19 pneumonia: Initially diagnosed 8 days prior to admission. Very high ddimer. Elevated markers, ferritin went up, CRP down. #Morbid obesity: BMI=52. Associated with worse COVID-19 outcomes #Transaminitis: Likely related to COVID-19. Improving. #Bacteriuria, urine analysis not consistent with UTI #ARACELI: Resolved #Bradycardia: Per cardiology Recs: -Continue dexamethasone 6 mg IV/PO daily to complete 10 days -day 4 of 10 -Continue Remdesivir day 5 of 5. CrCl=84 >30. -Completed ceftriaxone 2 gm IV qday total 5 days -Obtain daily inflammatory markers - ferritin, Ddimer, CRP, LDH tomorrow -Anticoagulation per [facility] protocol - agree with full dose anticoagulation-ddimer>10,000 Jenifer Robertson MD [facility] ([facility]) Office [phone] Subjective Date of service: 01/16/20 Principal diagnosis: Shortness of breath Interval history: Remains on the ventilator, bradycardic on monitor no fever Objective - Exam Narrative Exam: Physical Exam: reviewed ED and hospitalist notes, limited due to conservation of PPE General appearance: limited due to conservation of PPE Eyes: limited due to conservation of PPE HENT: Atraumatic; limited due to conservation of PPE Lungs: limited due to conservation of PPE CV: limited due to conservation of PPE Abdomen: limited due to conservation of PPE Extremities: limited due to conservation of PPE Skin: limited due to conservation of PPE Psych: limited due to conservation of PPE Neuro: limited due to conservation of PPE - Constitutional Vitals: Vital Signs Temp Pulse Resp BP Pulse Ox 98.1 F 42 L 20 159/83 98 01/16/20 08:00 01/16/20 09:00 01/16/20 09:00 01/16/20 09:00 01/16/20 09:00 Temperature -Last 24 Hours Temperature 98.1 F Temperature 98.8 F Temperature 99.1 F Temperature 98.2 F Temperature 97.6 F Temperature 97.6 F - Labs CBC & Chem 7: 01/16/20 04:00 01/16/20 04:00 Labs: Abnormal lab results 01/15/20 01/15/20 01/15/20 Range/Units 11:56 14:35 14:35 WBC (4.5-11.0) K/mm3 MCV (79-97) fl MCH (28-32) pg RDW (13.2-15.2) % Seg Neuts % (Manual) (40.0-70.0) % Lymphocytes % (Manual) (13.4-35.0) % Seg Neutrophils # Man (1.8-7.7) K/mm3 Lymphocytes # (Manual) (1.2-5.4) K/mm3 ABG pH (7.320-7.450) POC ABG pO2 (83-108) mmHg Sodium (137-145) mmol/L Chloride (98-107) mmol/L BUN (7-17) mg/dL Glucose (65-100) mg/dL POC Glucose 162 H (70-105) Magnesium (1.7-2.3) mg/dL Ferritin 332.4 H (10.0-200.0) ng/mL Lactate Dehydrogenase 747 H (91-180) units/L C-Reactive Protein 7.60 H (0.00-1.30) mg/dL TSH (0.270-4.200) mlU/mL 01/15/20 01/15/20 01/15/20 Range/Units 14:35 14:35 16:18 WBC (4.5-11.0) K/mm3 MCV (79-97) fl MCH (28-32) pg RDW (13.2-15.2) % Seg Neuts % (Manual) (40.0-70.0) % Lymphocytes % (Manual) (13.4-35.0) % Seg Neutrophils # Man (1.8-7.7) K/mm3 Lymphocytes # (Manual) (1.2-5.4) K/mm3 ABG pH 7.510 H (7.320-7.450) POC ABG pO2 76.6 L (83-108) mmHg Sodium (137-145) mmol/L Chloride (98-107) mmol/L BUN (7-17) mg/dL Glucose (65-100) mg/dL POC Glucose (70-105) Magnesium 3.00 H (1.7-2.3) mg/dL Ferritin (10.0-200.0) ng/mL Lactate Dehydrogenase (91-180) units/L C-Reactive Protein (0.00-1.30) mg/dL TSH 0.221 L (0.270-4.200) mlU/mL 01/15/20 01/15/20 01/16/20 Range/Units 17:31 23:26 03:33 WBC (4.5-11.0) K/mm3 MCV (79-97) fl MCH (28-32) pg RDW (13.2-15.2) % Seg Neuts % (Manual) (40.0-70.0) % Lymphocytes % (Manual) (13.4-35.0) % Seg Neutrophils # Man (1.8-7.7) K/mm3 Lymphocytes # (Manual) (1.2-5.4) K/mm3 ABG pH 7.477 H (7.320-7.450) POC ABG pO2 (83-108) mmHg Sodium (137-145) mmol/L Chloride (98-107) mmol/L BUN (7-17) mg/dL Glucose (65-100) mg/dL POC Glucose 239 H 226 H (70-105) Magnesium (1.7-2.3) mg/dL Ferritin (10.0-200.0) ng/mL Lactate Dehydrogenase (91-180) units/L C-Reactive Protein (0.00-1.30) mg/dL TSH (0.270-4.200) mlU/mL 01/16/20 01/16/20 01/16/20 Range/Units 04:00 04:00 05:45 WBC 13.6 H (4.5-11.0) K/mm3 MCV 74 L (79-97) fl MCH 25 L (28-32) pg RDW 15.4 H (13.2-15.2) % Seg Neuts % (Manual) 91.0 H (40.0-70.0) % Lymphocytes % (Manual) 5.0 L (13.4-35.0) % Seg Neutrophils # Man 12.4 H (1.8-7.7) K/mm3 Lymphocytes # (Manual) 0.7 L (1.2-5.4) K/mm3 ABG pH (7.320-7.450) POC ABG pO2 (83-108) mmHg Sodium 151 H (137-145) mmol/L Chloride 113.8 H (98-107) mmol/L BUN 45 H (7-17) mg/dL Glucose 213 H (65-100) mg/dL POC Glucose 202 H (70-105) Magnesium (1.7-2.3) mg/dL Ferritin (10.0-200.0) ng/mL Lactate Dehydrogenase (91-180) units/L C-Reactive Protein (0.00-1.30) mg/dL TSH (0.270-4.200) mlU/mL
--- NOTE | 2020-01-16 12:00 | Progress Note ---
Assessment and Plan # Acute Kidney Injury: suspect tubular injury in setting of COVID-19, has improved with supportive measures. Does remain at higher risk of future ARACELI given bradycardia, overall criticall illness - strict Is/Os - avoid nephrotoxins - IVF prn - supportive care per primary, ICU - serologies, UP/C pending # Hypernatremia: due to free water deficit, stable at 151. Would increase free water with tube feeds as able or start D5W if tolerated per pulmonary # Acute hypoxic respiratory failure, COVID-19, Sepsis: appreciate ICU, ID recommendations # Bradycardia: appreciate cardiology input # Hyperkalemia: improved, following Subjective Date of service: 01/16/20 Principal diagnosis: Shortness of breath Interval history: No acute events noted per chart review. Patient noted to be in prone positioning Objective - Exam Narrative Exam: Due to COVID-19 and need to conserve PPE, patient was seen through window and not directly examined. Reviewed examination of primary team. - Vital Signs Vital signs: Vital Signs - 12hr 01/16/20 01/16/20 01/16/20 00:00 00:01 00:15 Temperature 99.1 F Pulse Rate 44 L 42 L 41 L Pulse Rate [ 44 L From Monitor] Pulse Rate [ 44 L Left Dorsalis Pedis] Pulse Rate [ 44 L Left Radial] Pulse Rate [ 44 L Right Dorsalis Pedis] Pulse Rate [ 44 L Right Radial] Respiratory 20 20 Rate Blood Pressure 135/70 141/75 O2 Sat by Pulse 100 96 97 Oximetry 01/16/20 01/16/20 01/16/20 00:27 00:31 00:45 Temperature Pulse Rate 40 L 41 L 39 L Pulse Rate [ From Monitor] Pulse Rate [ Left Dorsalis Pedis] Pulse Rate [ Left Radial] Pulse Rate [ Right Dorsalis Pedis] Pulse Rate [ Right Radial] Respiratory 15 17 Rate Blood Pressure 144/75 148/77 150/77 O2 Sat by Pulse 97 97 97 Oximetry 01/16/20 01/16/20 01/16/20 01:01 01:15 01:31 Temperature Pulse Rate 41 L 41 L 41 L Pulse Rate [ From Monitor] Pulse Rate [ Left Dorsalis Pedis] Pulse Rate [ Left Radial] Pulse Rate [ Right Dorsalis Pedis] Pulse Rate [ Right Radial] Respiratory 18 20 13 Rate Blood Pressure 150/77 139/70 133/70 O2 Sat by Pulse 96 95 95 Oximetry 01/16/20 01/16/20 01/16/20 01:45 02:01 02:15 Temperature Pulse Rate 42 L 42 L 39 L Pulse Rate [ From Monitor] Pulse Rate [ Left Dorsalis Pedis] Pulse Rate [ Left Radial] Pulse Rate [ Right Dorsalis Pedis] Pulse Rate [ Right Radial] Respiratory 14 16 21 Rate Blood Pressure 132/66 123/62 133/70 O2 Sat by Pulse 95 95 95 Oximetry 01/16/20 01/16/20 01/16/20 02:31 02:45 03:01 Temperature Pulse Rate 39 L 83 79 Pulse Rate [ From Monitor] Pulse Rate [ Left Dorsalis Pedis] Pulse Rate [ Left Radial] Pulse Rate [ Right Dorsalis Pedis] Pulse Rate [ Right Radial] Respiratory 16 13 22 Rate Blood Pressure 144/74 196/105 188/99 O2 Sat by Pulse 96 98 98 Oximetry 01/16/20 01/16/20 01/16/20 03:15 03:31 03:35 Temperature 98.8 F Pulse Rate 74 72 Pulse Rate [ From Monitor] Pulse Rate [ Left Dorsalis Pedis] Pulse Rate [ Left Radial] Pulse Rate [ Right Dorsalis Pedis] Pulse Rate [ Right Radial] Respiratory 18 18 Rate Blood Pressure 188/101 205/107 O2 Sat by Pulse 98 98 Oximetry 01/16/20 01/16/20 01/16/20 03:45 04:00 04:01 Temperature Pulse Rate 64 43 L 52 L Pulse Rate [ 42 L From Monitor] Pulse Rate [ 42 L Left Dorsalis Pedis] Pulse Rate [ 42 L Left Radial] Pulse Rate [ 42 L Right Dorsalis Pedis] Pulse Rate [ 42 L Right Radial] Respiratory 25 H 15 Rate Blood Pressure 205/107 205/107 O2 Sat by Pulse 94 100 95 Oximetry 01/16/20 01/16/20 01/16/20 04:15 04:30 04:45 Temperature Pulse Rate 47 L 45 L 44 L Pulse Rate [ From Monitor] Pulse Rate [ Left Dorsalis Pedis] Pulse Rate [ Left Radial] Pulse Rate [ Right Dorsalis Pedis] Pulse Rate [ Right Radial] Respiratory 20 22 22 Rate Blood Pressure 205/107 165/89 168/90 O2 Sat by Pulse 96 96 97 Oximetry 01/16/20 01/16/20 01/16/20 05:00 05:08 05:15 Temperature Pulse Rate 45 L 43 L 43 L Pulse Rate [ From Monitor] Pulse Rate [ Left Dorsalis Pedis] Pulse Rate [ Left Radial] Pulse Rate [ Right Dorsalis Pedis] Pulse Rate [ Right Radial] Respiratory 18 30 H Rate Blood Pressure 172/91 170/89 171/89 O2 Sat by Pulse 98 98 98 Oximetry 01/16/20 01/16/20 01/16/20 05:31 05:45 06:00 Temperature Pulse Rate 43 L 41 L 42 L Pulse Rate [ From Monitor] Pulse Rate [ Left Dorsalis Pedis] Pulse Rate [ Left Radial] Pulse Rate [ Right Dorsalis Pedis] Pulse Rate [ Right Radial] Respiratory 17 20 17 Rate Blood Pressure 174/90 171/90 174/91 O2 Sat by Pulse 98 98 98 Oximetry 01/16/20 01/16/20 01/16/20 06:15 06:30 06:45 Temperature Pulse Rate 43 L 43 L 42 L Pulse Rate [ From Monitor] Pulse Rate [ Left Dorsalis Pedis] Pulse Rate [ Left Radial] Pulse Rate [ Right Dorsalis Pedis] Pulse Rate [ Right Radial] Respiratory 16 18 26 H Rate Blood Pressure 170/89 167/87 164/84 O2 Sat by Pulse 98 98 98 Oximetry 01/16/20 01/16/20 01/16/20 07:00 07:15 07:30 Temperature Pulse Rate 43 L 43 L 44 L Pulse Rate [ From Monitor] Pulse Rate [ Left Dorsalis Pedis] Pulse Rate [ Left Radial] Pulse Rate [ Right Dorsalis Pedis] Pulse Rate [ Right Radial] Respiratory 24 16 22 Rate Blood Pressure 161/86 157/81 159/82 O2 Sat by Pulse 98 98 98 Oximetry 01/16/20 01/16/20 01/16/20 07:45 08:00 08:08 Temperature 98.1 F Pulse Rate 45 L 44 L 42 L Pulse Rate [ 41 L From Monitor] Pulse Rate [ Left Dorsalis Pedis] Pulse Rate [ Left Radial] Pulse Rate [ Right Dorsalis Pedis] Pulse Rate [ Right Radial] Respiratory 21 22 Rate Blood Pressure 166/84 158/83 156/84 O2 Sat by Pulse 97 97 97 Oximetry 01/16/20 01/16/20 01/16/20 08:15 08:30 08:45 Temperature Pulse Rate 43 L 42 L 42 L Pulse Rate [ From Monitor] Pulse Rate [ Left Dorsalis Pedis] Pulse Rate [ Left Radial] Pulse Rate [ Right Dorsalis Pedis] Pulse Rate [ Right Radial] Respiratory 15 18 17 Rate Blood Pressure 157/83 154/82 159/82 O2 Sat by Pulse 97 98 98 Oximetry 01/16/20 09:00 Temperature Pulse Rate 42 L Pulse Rate [ From Monitor] Pulse Rate [ Left Dorsalis Pedis] Pulse Rate [ Left Radial] Pulse Rate [ Right Dorsalis Pedis] Pulse Rate [ Right Radial] Respiratory 20 Rate Blood Pressure 159/83 O2 Sat by Pulse 98 Oximetry - Lab 01/16/20 04:00 01/16/20 04:00 Most recent lab results ABG pCO2 41.8 mm Hg 01/14/20 16:00 ABG pO2 69.3 mm Hg (80.0-90.0) L 01/14/20 16:00 ABG HCO3 25.4 mmol/L (20.0-26.0) 01/14/20 16:00 ABG O2 Saturation 94.4 % (95.0-99.0) L 01/14/20 16:00 ABG pH 7.477 (7.320-7.450) H 01/16/20 03:33 Calcium 8.4 mg/dL (8.4-10.2) 01/16/20 04:00 Magnesium 3.00 mg/dL (1.7-2.3) H 01/15/20 14:35 Medications & Allergies - Medications Allergies/Adverse Reactions: Allergies shellfish derived Allergy (Verified 01/11/20 18:37) Swelling Home Medications: Home Medications Medication Instructions Recorded Confirmed Last Taken Type glipiZIDE [Glipizide] 10 mg PO DAILY #30 tablet 08/15/18 01/13/20 Unknown Rx Active Medications: Generic Name Dose Route Start Last Admin Trade Name Freq PRN Reason Stop Dose Admin Acetaminophen 650 mg 01/11/20 18:55 Tylenol PO Q4H PRN Pain MILD(1-3)/Fever >100.5/CORDOVA Lipase/Protease/Amylase 1 each 01/14/20 11:00 Pancreaniceto Marley 10,500 Unit FEEDTUBE PRN PRN For Clogged Feeding Tube Atropine Sulfate 1 mg 01/15/20 12:00 01/15/20 19:42 Atropine 0.1% (Cardiac) IV 1 mg ONCE PRN Administration HR < 40 Dexamethasone 6 mg 01/13/20 12:00 01/16/20 09:42 Decadron IV 01/22/20 10:01 6 mg Q24HR ASHISH Administration Enoxaparin Sodium 120 mg 01/13/20 12:00 01/16/20 09:43 Enoxaparin SUB-Q 120 mg Q12HR ASHISH Administration Famotidine 20 mg 01/13/20 10:00 01/16/20 09:42 Pepcid IV 20 mg BID ASHISH Administration Fentanyl 50 mcg 01/13/20 01:52 01/13/20 02:15 Sublimaze IV 50 mcg Q10MIN PRN Administration ANALGESIA Hydromorphone HCl 0.25 mg 01/11/20 18:59 01/12/20 21:36 Dilaudid IV 0.25 mg Q4H PRN Administration Pain, Moderate (4-6) Hydrophilic Ointment 1 applic 01/13/20 01:52 Vaseline Lip Therapy TP Q2HR PRN Dry Lips Fentanyl Citrate 2,000 mcg in 100 mls @ 5.69 mls/hr 01/13/20 02:00 01/16/20 11:04 Fentanyl Drip Premix IV 4 mcg/kg/hr TITR ASHISH 22.76 mls/hr Administration Protocol 1 MCG/KG/HR Midazolam HCl 100 mg/ Sodium 100 mls @ 2 mls/hr 01/13/20 02:00 01/16/20 01:59 Chloride IV 5 mg/hr TITR ASHISH 5 mls/hr Administration Protocol 2 MG/HR REMDESIVIR 100 mg/ Sodium 250 mls @ 500 mls/hr 01/14/20 21:00 01/15/20 21:05 Chloride IV 01/17/20 21:29 500 mls/hr Q24HR@2100 ASHISH Administration Propofol 1,000 mg in 100 mls @ 3.414 mls/hr 01/14/20 23:21 01/16/20 07:40 Diprivan 10 Mg/Ml IV 5 mcg/kg/min TITR ASHISH 3.414 mls/hr Administration Protocol 5 MCG/KG/MIN Insulin Glargine 10 units 01/16/20 10:00 01/16/20 11:06 Lantus SUB-Q 10 units DAILY ASHISH Administration Insulin Human Lispro 0 unit 01/13/20 11:00 01/16/20 11:55 Humalog SUB-Q 3 unit Q6H ASHISH Administration Protocol Midazolam HCl 2 mg 01/13/20 01:52 Versed IV Q10MIN PRN Sedation Multi-Ingred Cream/Lotion/Oil/Oint 1 applic 01/13/20 01:52 Artificial Tears Ophth Oint OU Q4HR PRN Dry Eye(s) Ondansetron HCl 4 mg 01/11/20 18:55 Zofran IV Q8H PRN Nausea And Vomiting Simple Syrup 15 ml 01/14/20 11:00 Simple Syrup FEEDTUBE PRN PRN Hypoglycemia Simple Syrup 30 ml 01/14/20 11:00 Simple Syrup FEEDTUBE PRN PRN Hypoglycemia Sodium Bicarbonate 325 mg 01/14/20 11:00 Sodium Bicarbonate FEEDTUBE PRN PRN For Clogged Feeding Tube Sodium Chloride 10 ml 01/11/20 22:00 01/16/20 09:43 Sodium Chloride Flush Syringe 10 Ml IV 10 ml BID ASHISH Administration Sodium Chloride 10 ml 01/11/20 18:55 Sodium Chloride Flush Syringe 10 Ml IV PRN PRN LINE FLUSH Sodium Chloride 50 ml 01/13/20 17:00 01/15/20 21:06 Nacl 0.9% IV 01/17/20 17:01 50 ml Q24H ASHISH Administration
[2020-01-16] MEDS: ATROPINE 0.1% (1 MG/10 ML) CARDIAC SYRINGE IV PRN ×3 (13:12→22:06)
--- NOTE | 2020-01-16 14:45 | XRay Report ---
CHEST 1 VIEW 1:02 PM INDICATION / CLINICAL INFORMATION: Follow-up respiratory failure. COMPARISON: Yesterday. FINDINGS: SUPPORT DEVICES: There is a new PICC entering from the right arm with the tip overlying the inferior/ medial right atrium or possibly the proximal right ventricle. The position of the endotracheal tube h as not changed. The nasogastric tube has been removed. HEART / MEDIASTINUM: Unchanged. LUNGS / PLEURA: Mild bibasilar atelectasis has increased. No pneumothorax. ADDITIONAL FINDINGS: No significant additional findings. IMPRESSION: New right PICC tip overlies the inferior right atrium or possibly the proximal right vent ricle.. The catheter could be pulled back approximately 9 to 10 cm. No pneumothorax. Signer Name: Cabrera Menon MD Signed: 01/16/2020 2:40 PM Workstation Name: [id number]
--- NOTE | 2020-01-16 18:08 | XRay Report ---
ABDOMEN 1 VIEW(S) INDICATION / CLINICAL INFORMATION: ng tube placement. COMPARISON: 01/15/2020 FINDINGS: TUBES / LINES: NG tube tip projects over the distal stomach. BOWEL GAS PATTERN/EXTRALUMINAL GAS: No significant abnormality. No pneumatosis or secondary signs of free air. ADDITIONAL FINDINGS: No significant additional findings. IMPRESSION: 1. NG tube tip projects over the distal stomach. Signer Name: Huey Acevedo MD Signed: 01/16/2020 6:03 PM Workstation Name: [id number]
[2020-01-16] MEDS: REMDESIVIR 100 MG in SODIUM CHLORIDE 0.9% 250ML 250 ML IV SCH (22:08)
[2020-01-17] MEDS: INSULIN LISPRO 100 UNIT/ML VIAL 3 mL SUB-Q SCH ×5 (00:50→23:38)
[2020-01-17] MEDS: fentaNYL DRIP Premix 2,000 MCG/100 ML BAG IV SCH ×5 (02:35→21:14)
[2020-01-17] MEDS: ATROPINE 0.1% (1 MG/10 ML) CARDIAC SYRINGE IV PRN ×3 (05:02→22:46)
[2020-01-17 05:13] LABS: ABG Base Excess 0.4 mmol/L (-2.0-3.0); ABG HCO3 22.8 mmol/L (20.0-26.0); ABG Methemoglobin 0.4 % (0.0-1.5); ABG Oxygen Saturation 96.1 % (95.0-99.0); ABG PCO2 30.4 mm Hg; ABG PH 7.494 pH Units (7.350-7.450); ABG PO2 73.4 mm Hg (80.0-90.0)
[2020-01-17 06:30] LABS: Hematocrit 37.3 % (30.3-42.9); Hemoglobin 12.2 gm/dl (10.1-14.3); Mean Corpuscular HGB Conc 33 % (30-34); Mean Corpuscular Volume 75 fl (79-97); Platelet Count 327 K/mm3 (140-440); Red Blood Count 4.97 M/mm3 (3.65-5.03); Red Cell Distribution Width 15.5 % (13.2-15.2)
[2020-01-17 07:41] LABS: BUN/Creatinine Ratio 44; Blood Urea Nitrogen 40 mg/dL (7-17); Calcium 8.9 mg/dL (8.4-10.2); Hemolysis Index 23
[2020-01-17 07:56] LABS: Basophils % (Manual) 0 % (0.0-1.8); Eosinophils % (Manual) 0 % (0.0-4.3); Myelocytes # (Manual) 0.1 K/mm3; Total Cells Counted 100
[2020-01-17 07:57] LABS: Anisocytosis Few; Hypochromasia 1+; Platelet Estimate Consistent w Auto; Tear Drop Cells Few
[2020-01-17] MEDS: SODIUM CHLORIDE 0.9% 50 ML IVPB IV SCH (08:30)
--- NOTE | 2020-01-17 08:42 | Progress Note ---
Assessment and Plan Assessment and plan: Acute hypoxic respiratory failure. Etiology likely secondary to COVID-19 infection. Patient remains on mechanical ventilation. Pulmonary following. COVID-19 pneumonia. Patient was initially diagnosed 8 days prior to admission. Patient has high d-dimer and inflammatory markers. ID following. Continue dexamethasone 6 mg IV for completion of 10 days. Continue remdesivir. Continue to trend inflammatory markers. Full dose anticoagulation given the high d- dimer. Sepsis. Etiology secondary to above. Continue IV antibiotics of ceftriaxone and azithromycin. Morbid obesity. Severe bradycardia this morning 01/15/2020; was in the 30's and was given atropine, and cardiology consulted. Elevated LFTs/transaminitis. Etiology likely secondary to sepsis/COVID-19 Acute kidney injury. Etiology secondary to sepsis/ATN. Nephrology consultation Hyperkalemia. Etiology likely secondary to above. Kayexalate x1. 01/16/2020; patient is still on mechanical ventilation FiO2 40, PEEP 14, patient is on fentanyl, Versed, propofol. Patient proned. We will continue to monitor. Patient is off IV antibiotics. Treated for 5 days with IV ceftriaxone. ID, nephrology and pulmonary consult appreciated 01/17/2020; patient is still on mechanical ventilation FiO2 40, PEEP 14, patient is on fentanyl, Versed, propofol. Patient proned. We will continue to monitor. Patient is off IV antibiotics. Treated for 5 days with IV ceftriaxone. ID, nephrology and pulmonary consult appreciated. Patient has elevated sodium level and advised to increase free water intake through the NG tube feeding. The high probability of a clinically significant, sudden or life threatening deterioration of the [respiratory and immunologic] system(s) required my full and direct attention, intervention and personal management. The aggregate critical care time was [33] minutes. This time is in addition to time spent performing reported procedures but includes the following: [x] Data Review and interpretation [x] Patient assessment and monitoring of vital signs [x] Documentation [x] Medication orders and management History Interval history: Patient was seen and evaluated during morning rounds Patient was intubated and sedated, PEEP 14, FiO2 40 Patient is on fentanyl Versed and propofol Patient had severe bradycardia and was given atropine Cardiology consulted Hospitalist Physical - Physical exam Narrative exam: Patient is intubated and on mechanical ventilation The patient is obese. Vital signs as documented. Head exam is unremarkable. No scleral icterus . Neck is without jugular venous distension, thyromegaly, or carotid bruits. On mechanical ventilation Cardiac exam reveals regular rate and Rhythm. Abdominal exam reveals normal bowel sounds, nontender, no organomegaly. Extremities are nonedematous and both femoral and pedal pulses are normal. [employer]ER: Sedated. - Constitutional Vitals: Temp Pulse Resp BP Pulse Ox 97.5 F L 44 L 29 H 152/81 100 01/17/20 07:46 01/17/20 08:29 01/17/20 08:16 01/17/20 08:29 01/17/20 08:29 General appearance: Present: obese, other (orally intubation-sedated) Results - Labs CBC & Chem 7: 01/17/20 06:00 01/17/20 06:00 Labs: Laboratory Last Values WBC 11.5 K/mm3 (4.5-11.0) H 01/17/20 06:00 RBC 4.97 M/mm3 (3.65-5.03) 01/17/20 06:00 Hgb 12.2 gm/dl (10.1-14.3) 01/17/20 06:00 Hct 37.3 % (30.3-42.9) 01/17/20 06:00 MCV 75 fl (79-97) L 01/17/20 06:00 MCH 25 pg (28-32) L 01/17/20 06:00 MCHC 33 % (30-34) 01/17/20 06:00 RDW 15.5 % (13.2-15.2) H 01/17/20 06:00 Plt Count 327 K/mm3 (140-440) 01/17/20 06:00 Lymph % (Auto) 8.6 % (13.4-35.0) L 01/15/20 03:57 Mobile % (Auto) 7.0 % (0.0-7.3) 01/15/20 03:57 Eos % (Auto) 0.0 % (0.0-4.3) 01/15/20 03:57 Baso % (Auto) 0.2 % (0.0-1.8) 01/15/20 03:57 Lymph # 1.3 K/mm3 (1.2-5.4) 01/15/20 03:57 Mobile # 1.0 K/mm3 (0.0-0.8) H 01/15/20 03:57 Eos # 0.0 K/mm3 (0.0-0.4) 01/15/20 03:57 Baso # 0.0 K/mm3 (0.0-0.1) 01/15/20 03:57 Seg Neutrophils % 84.2 % (40.0-70.0) H 01/15/20 03:57 Add Manual Diff Complete 01/17/20 06:00 Total Counted 100 01/17/20 06:00 Seg Neutrophils # 12.5 K/mm3 (1.8-7.7) H 01/15/20 03:57 Seg Neuts % (Manual) 81.0 % (40.0-70.0) H 01/17/20 06:00 Band Neutrophils % 0 % 01/17/20 06:00 Lymphocytes % (Manual) 10.0 % (13.4-35.0) L 01/17/20 06:00 Reactive Lymphs % (Man) 0 % 01/17/20 06:00 Monocytes % (Manual) 2.0 % (0.0-7.3) 01/17/20 06:00 Eosinophils % (Manual) 0 % (0.0-4.3) 01/17/20 06:00 Basophils % (Manual) 0 % (0.0-1.8) 01/17/20 06:00 Metamyelocytes % 6.0 % 01/17/20 06:00 Myelocytes % 1.0 % 01/17/20 06:00 Promyelocytes % 0 % 01/17/20 06:00 Blast Cells % 0 % 01/17/20 06:00 Nucleated RBC % Not Reportable 01/17/20 06:00 Seg Neutrophils # Man 9.3 K/mm3 (1.8-7.7) H 01/17/20 06:00 Band Neutrophils # 0.0 K/mm3 01/17/20 06:00 Lymphocytes # (Manual) 1.2 K/mm3 (1.2-5.4) 01/17/20 06:00 Abs React Lymphs (Man) 0.0 K/mm3 01/17/20 06:00 Monocytes # (Manual) 0.2 K/mm3 (0.0-0.8) 01/17/20 06:00 Eosinophils # (Manual) 0.0 K/mm3 (0.0-0.4) 01/17/20 06:00 Basophils # (Manual) 0.0 K/mm3 (0.0-0.1) 01/17/20 06:00 Metamyelocytes # 0.7 K/mm3 01/17/20 06:00 Myelocytes # 0.1 K/mm3 01/17/20 06:00 Promyelocytes # 0.0 K/mm3 01/17/20 06:00 Blast Cells # 0.0 K/mm3 01/17/20 06:00 WBC Morphology Not Reportable 01/17/20 06:00 Hypersegmented Neuts Not Reportable 01/17/20 06:00 Hyposegmented Neuts Not Reportable 01/17/20 06:00 Hypogranular Neuts Not Reportable 01/17/20 06:00 Smudge Cells Not Reportable 01/17/20 06:00 Toxic Granulation Not Reportable 01/17/20 06:00 Toxic Vacuolation Not Reportable 01/17/20 06:00 Dohle Bodies Not Reportable 01/17/20 06:00 Pelger-Huet Anomaly Not Reportable 01/17/20 06:00 Shanti Rods Not Reportable 01/17/20 06:00 Platelet Estimate Consistent w auto 01/17/20 06:00 Clumped Platelets Not Reportable 01/17/20 06:00 Plt Clumps, EDTA Not Reportable 01/17/20 06:00 Large Platelets Not Reportable 01/17/20 06:00 Giant Platelets Not Reportable 01/17/20 06:00 Platelet Satelliting Not Reportable 01/17/20 06:00 Plt Morphology Comment Not Reportable 01/17/20 06:00 RBC Morphology Not Reportable 01/17/20 06:00 Dimorphic RBCs Not Reportable 01/17/20 06:00 Polychromasia Not Reportable 01/17/20 06:00 Hypochromasia 1+ 01/17/20 06:00 Poikilocytosis Not Reportable 01/17/20 06:00 Anisocytosis Few 01/17/20 06:00 Microcytosis Not Reportable 01/17/20 06:00 Macrocytosis Not Reportable 01/17/20 06:00 Spherocytes Not Reportable 01/17/20 06:00 Pappenheimer Bodies Not Reportable 01/17/20 06:00 Sickle Cells Not Reportable 01/17/20 06:00 Target Cells Not Reportable 01/17/20 06:00 Tear Drop Cells Few 01/17/20 06:00 Ovalocytes Not Reportable 01/17/20 06:00 Helmet Cells Not Reportable 01/17/20 06:00 [place] Bodies Not Reportable 01/17/20 06:00 [place] Rings Not Reportable 01/17/20 06:00 [place] Cells Not Reportable 01/17/20 06:00 Bite Cells Not Reportable 01/17/20 06:00 Crenated Cell Not Reportable 01/17/20 06:00 Elliptocytes Not Reportable 01/17/20 06:00 Acanthocytes (Spur) Not Reportable 01/17/20 06:00 Rouleaux Not Reportable 01/17/20 06:00 Hemoglobin C Crystals Not Reportable 01/17/20 06:00 Schistocytes Not Reportable 01/17/20 06:00 Malaria parasites Not Reportable 01/17/20 06:00 [place] Bodies Not Reportable 01/17/20 06:00 Hem Pathologist Commnt No 01/17/20 06:00 D-Dimer > 16580 ng/mlDDU (0-234) H 01/14/20 09:47 ABG pH 7.494 pH Units (7.350-7.450) H 01/17/20 04:50 POC ABG pCO2 33.9 mmHg (32.0-48.0) 01/16/20 03:33 ABG pCO2 30.4 mm Hg 01/17/20 04:50 ABG Oxyhemoglobin 86.5 (94-98) L 01/13/20 04:45 POC ABG pO2 86.3 mmHg (83-108) 01/16/20 03:33 ABG pO2 73.4 mm Hg (80.0-90.0) L 01/17/20 04:50 POC ABG HCO3 24.5 01/16/20 03:33 ABG HCO3 22.8 mmol/L (20.0-26.0) 01/17/20 04:50 ABG O2 Saturation 96.1 % (95.0-99.0) 01/17/20 04:50 ABG O2 Content 16.6 (0.0-44) 01/17/20 04:50 POC ABG Base Excess 1.4 01/16/20 03:33 ABG Base Excess 0.4 mmol/L (-2.0-3.0) 01/17/20 04:50 ABG Hemoglobin 12.5 gm/dl (12.0-16.0) 01/17/20 04:50 ABG Carboxyhemoglobin 1.4 % (0.0-5.0) 01/17/20 04:50 ABG Methemoglobin 0.4 % (0.0-1.5) 01/17/20 04:50 Carboxyhemoglobin 0.9 (0.5-1.5) 01/13/20 04:45 Oxyhemoglobin 94.4 % (95.0-99.0) L 01/17/20 04:50 FiO2 40 % 01/17/20 04:50 Sodium 151 mmol/L (137-145) H 01/17/20 06:00 Potassium 3.7 mmol/L (3.6-5.0) 01/17/20 06:00 Chloride 113.6 mmol/L (98-107) H 01/17/20 06:00 Carbon Dioxide 23 mmol/L (22-30) 01/17/20 06:00 Anion Gap 18 mmol/L 01/17/20 06:00 BUN 40 mg/dL (7-17) H 01/17/20 06:00 Creatinine 0.9 mg/dL (0.6-1.2) 01/17/20 06:00 Estimated GFR > 60 ml/min 01/17/20 06:00 BUN/Creatinine Ratio 44 % 01/17/20 06:00 Glucose 149 mg/dL (65-100) H 01/17/20 06:00 POC Glucose 170 (70-105) H 01/17/20 05:46 Lactic Acid 1.40 mmol/L (0.7-2.0) 01/12/20 07:07 Calcium 8.9 mg/dL (8.4-10.2) 01/17/20 06:00 Total Bilirubin 0.20 mg/dL (0.1-1.2) 01/14/20 09:47 AST 40 units/L (5-40) 01/14/20 09:47 ALT 32 units/L (7-56) 01/14/20 09:47 Alkaline Phosphatase 98 units/L (35-129) 01/14/20 09:47 Magnesium 3.00 mg/dL (1.7-2.3) H 01/15/20 14:35 Ferritin 332.4 ng/mL (10.0-200.0) H 01/15/20 14:35 Total Protein 6.0 g/dL (6.3-8.2) L 01/14/20 09:47 Albumin 2.7 g/dL (3.9-5) L 01/14/20 09:47 Albumin/Globulin Ratio 0.8 % 01/14/20 09:47 Lactate Dehydrogenase 747 units/L (91-180) H 01/15/20 14:35 C-Reactive Protein 7.60 mg/dL (0.00-1.30) H 01/15/20 14:35 Procalcitonin 0.33 ng/mL (<0.15) 01/11/20 17:22 TSH 0.221 mlU/mL (0.270-4.200) L 01/15/20 14:35 Free T4 1.23 ng/dL (0.76-1.46) 01/15/20 14:35 Urine Color Yellow (Yellow) 01/11/20 21:50 Urine Turbidity Clear (Clear) 01/11/20 21:50 Urine pH 6.0 (5.0-7.0) 01/11/20 21:50 Ur Specific [place] 1.030 (1.003-1.030) 01/11/20 21:50 Urine Protein >500 mg/dL (Negative) 01/11/20 21:50 Urine Glucose (UA) >=500 mg/dL (Negative) 01/11/20 21:50 Urine Ketones 20 mg/dL (Negative) 01/11/20 21:50 Urine Blood Mod (Negative) 01/11/20 21:50 Urine Nitrite Neg (Negative) 01/11/20 21:50 Urine Bilirubin Neg (Negative) 01/11/20 21:50 Urine Urobilinogen < 2.0 mg/dL (<2.0) 01/11/20 21:50 Ur Leukocyte Esterase Neg (Negative) 01/11/20 21:50 Urine WBC (Auto) 3.0 /HPF (0.0-6.0) 01/11/20 21:50 Urine RBC (Auto) 1.0 /HPF (0.0-6.0) 01/11/20 21:50 U Epithel Cells (Auto) < 1.0 /HPF (0-13.0) 01/11/20 21:50 Urine Bacteria (Auto) 1+ /HPF (Negative) 01/11/20 21:50 Coronavirus (PCR) Positive (Negative) A 01/12/20 09:00 Blood Type B POSITIVE 01/11/20 19:18 Antibody Screen Negative 01/11/20 19:18 Microbiology: Microbiology 01/11/20 17:22 Peripheral/Venous Blood Culture - Final NO GROWTH AFTER 5 DAYS 01/11/20 17:22 Peripheral/Venous Blood Culture - Final NO GROWTH AFTER 5 DAYS De Oliveira/IV: Voiding Method Indwelling Catheter IV Catheter Type [Right Upper PICC Line arm] IV Catheter Type [Right Hand] INT / Saline Lock IV Catheter Type [Left Forearm Peripheral IV ] IV Catheter Type [Right Peripheral IV Antecubital] Active Medications - Current Medications Current Medications: Generic Name Dose Route Start Last Admin Trade Name Freq PRN Reason Stop Dose Admin Acetaminophen 650 mg 01/11/20 18:55 Tylenol PO Q4H PRN Pain MILD(1-3)/Fever >100.5/CORDOVA Lipase/Protease/Amylase 1 each 01/14/20 11:00 Denise Marley 10,500 Unit FEEDTUBE PRN PRN For Clogged Feeding Tube Atropine Sulfate 1 mg 01/15/20 12:00 01/17/20 05:02 Atropine 0.1% (Cardiac) IV 1 mg ONCE PRN Administration HR < 40 Dexamethasone 6 mg 01/13/20 12:00 01/16/20 09:42 Decadron IV 01/22/20 10:01 6 mg Q24HR ASHISH Administration Enoxaparin Sodium 120 mg 01/13/20 12:00 01/16/20 21:24 Enoxaparin SUB-Q 120 mg Q12HR ASHISH Administration Famotidine 20 mg 01/13/20 10:00 01/16/20 21:24 Pepcid IV 20 mg BID ASHISH Administration Fentanyl 50 mcg 01/13/20 01:52 01/13/20 02:15 Sublimaze IV 50 mcg Q10MIN PRN Administration ANALGESIA Hydromorphone HCl 0.25 mg 01/11/20 18:59 01/12/20 21:36 Dilaudid IV 0.25 mg Q4H PRN Administration Pain, Moderate (4-6) Hydrophilic Ointment 1 applic 01/13/20 01:52 Vaseline Lip Therapy TP Q2HR PRN Dry Lips Fentanyl Citrate 2,000 mcg in 100 mls @ 5.69 mls/hr 01/13/20 02:00 01/17/20 07:31 Fentanyl Drip Premix IV 4 mcg/kg/hr TITR ASHISH 22.76 mls/hr Administration Protocol 1 MCG/KG/HR Midazolam HCl 100 mg/ Sodium 100 mls @ 2 mls/hr 01/13/20 02:00 01/16/20 21:52 Chloride IV 5 mg/hr TITR ASHISH 5 mls/hr Administration Protocol 2 MG/HR REMDESIVIR 100 mg/ Sodium 250 mls @ 500 mls/hr 01/14/20 21:00 01/17/20 02:36 Chloride IV 01/17/20 21:29 Infused Q24HR@2100 ASHISH Infusion Propofol 1,000 mg in 100 mls @ 3.414 mls/hr 01/14/20 23:21 01/17/20 04:12 Diprivan 10 Mg/Ml IV 30 mcg/kg/min TITR ASHISH 20.484 mls/hr Titration Protocol 5 MCG/KG/MIN Insulin Glargine 10 units 01/16/20 10:00 01/16/20 11:06 Lantus SUB-Q 10 units DAILY ASHISH Administration Insulin Human Lispro 0 unit 01/13/20 11:00 01/17/20 05:33 Humalog SUB-Q Not Given Q6H [facility] Protocol Midazolam HCl 2 mg 01/13/20 01:52 Versed IV Q10MIN PRN Sedation Multi-Ingred Cream/Lotion/Oil/Oint 1 applic 01/13/20 01:52 Artificial Tears Ophth Oint OU Q4HR PRN Dry Eye(s) Ondansetron HCl 4 mg 01/11/20 18:55 Zofran IV Q8H PRN Nausea And Vomiting Simple Syrup 15 ml 01/14/20 11:00 Simple Syrup FEEDTUBE PRN PRN Hypoglycemia Simple Syrup 30 ml 01/14/20 11:00 Simple Syrup FEEDTUBE PRN PRN Hypoglycemia Sodium Bicarbonate 325 mg 01/14/20 11:00 Sodium Bicarbonate FEEDTUBE PRN PRN For Clogged Feeding Tube Sodium Chloride 10 ml 01/11/20 22:00 01/16/20 21:36 Sodium Chloride Flush Syringe 10 Ml IV 10 ml BID ASHISH Administration Sodium Chloride 10 ml 01/11/20 18:55 Sodium Chloride Flush Syringe 10 Ml IV PRN PRN LINE FLUSH Sodium Chloride 50 ml 01/13/20 17:00 01/17/20 08:30 Nacl 0.9% IV 01/17/20 17:01 Not Given Q24H ASHISH Nutrition/Malnutrition Assess - Dietary Evaluation Nutrition/Malnutrition Findings: Nutrition Notes Start: 01/13/20 08:58 Freq: Status: Active Protocol: Document 01/16/20 14:32 [email or web address] (Rec: 01/16/20 14:44 [email or web address]) Co-Sign 01/16/20 14:32 LP Nutrition Notes Initial or Follow up Reassessment Other Pertinent Diagnosis Pneu, COVID-19 (+) Current Diet Nepro at 10ml/hr Labs/Tests Na 151 BUN 45 BG 213 Pertinent Medications Propofol Humalog Height 4 ft 11 in Weight 118 kg [place] Body Weight (kg) 43.18 BMI 52.5 Weight Status Morbidly Obese Subjective/Other Information F/U TF tolerance. NGT got pulled out, NGT being replaced . Pt has two more days of proning. Burn Absent Trauma Absent GI Symptoms None Current % PO Negligible Minimum of two criteria No physical signs of malnutrition #1 Nutrition Diagnosis Inadequate oral intake Diagnosis Progress(for reassessment Continues documentation) Is patient on ventilator? Yes Is Patient Ambulatory and/or Out of Bed No REE-([facility]-confined to bed) 2126.892 Kcal/Kg value to use for calculation 13 Approximate Energy Requirements Using 1534 kcal/Kg Calculation Used for Recommendations Kcal/kg Additional Notes Protein needs are up to 108g ( up to 2.5g/kg) Fluid needs are 1ml/kcal Nutrition Intervention Change Diet Order: TF Nutrition Support: if proned for 12 hrs run TF at 10ml, flush 50 q4h. Remaining 12hrs run TF at 70ml/hr. Flush 290ml q4h Kcal 1,728 Protein (gm) 78 Fluid (mL) 698 Goal #1 TF tolerance Anticipated Discharge Needs: Unable to determine at this time Follow-Up By: 01/18/20 Additional Comments T/F TF tolerance
--- NOTE | 2020-01-17 09:07 | Progress Note ---
Assessment and Plan Cultures: Blood culture 01/11/2020 no growth today Urine culture 01/11/2020 10-100,000 normal skin cristina Tracheal aspirate a 01/13/2020 no growth today A/P: 39-year-old female past medical history morbid obesity, diabetes admitted with severe COVID-19 pneumonia. #Sepsis: Fever resolved, leukocytosis up likely due to steroids. #Acute hypoxemic respiratory failure: Likely secondary to COVID-19 infection. remains mechanically ventilated #COVID-19 pneumonia: Initially diagnosed 8 days prior to admission. Very high ddimer. Elevated markers, ferritin went up, CRP down. Completed ceftriaxone. #Morbid obesity: BMI=52. Associated with worse COVID-19 outcomes #Transaminitis: Likely related to COVID-19. Improving. #Bacteriuria, urine analysis not consistent with UTI #ARACELI: Resolved #Bradycardia: Per cardiology Recs: -Continue dexamethasone 6 mg IV/PO daily to complete 10 days -day 5 of 10 -Continue remdesivir day 5 of 5 -Obtain daily inflammatory markers - ferritin, Ddimer, CRP, LDH today -Anticoagulation per [facility] protocol - agree with full dose anticoagulation-ddimer>10,000 Jenifer Robertson MD [facility] ([facility]) Office [phone] Subjective Date of service: 01/17/20 Principal diagnosis: Shortness of breath Interval history: Remains on the ventilator Fio2 40%, p14, bradycardic on monitor no fever, currently proned Objective - Exam Narrative Exam: Physical Exam: reviewed ED and hospitalist notes, limited due to conservation of PPE/ currently proned General appearance: limited due to conservation of PPE Eyes: limited due to conservation of PPE HENT: Atraumatic; limited due to conservation of PPE Lungs: limited due to conservation of PPE CV: limited due to conservation of PPE Abdomen: limited due to conservation of PPE Extremities: limited due to conservation of PPE Skin: limited due to conservation of PPE Psych: limited due to conservation of PPE Neuro: limited due to conservation of PPE - Constitutional Vitals: Vital Signs Temp Pulse Resp BP Pulse Ox 97.5 F L 44 L 29 H 152/81 100 01/17/20 07:46 01/17/20 08:29 01/17/20 08:16 01/17/20 08:29 01/17/20 08:29 Temperature -Last 24 Hours Temperature 97.5 F Temperature 97.5 F Temperature 98.7 F Temperature 98.3 F Temperature 98.3 F - Labs CBC & Chem 7: 01/17/20 06:00 01/17/20 06:00 Labs: Abnormal lab results 01/16/20 01/16/20 01/17/20 Range/Units 12:02 17:27 00:07 WBC (4.5-11.0) K/mm3 MCV (79-97) fl MCH (28-32) pg RDW (13.2-15.2) % Seg Neuts % (Manual) (40.0-70.0) % Lymphocytes % (Manual) (13.4-35.0) % Seg Neutrophils # Man (1.8-7.7) K/mm3 ABG pH (7.350-7.450) pH Units ABG pO2 (80.0-90.0) mm Hg Oxyhemoglobin (95.0-99.0) % Sodium (137-145) mmol/L Chloride (98-107) mmol/L BUN (7-17) mg/dL Glucose (65-100) mg/dL POC Glucose 186 H 240 H 207 H (70-105) 01/17/20 01/17/20 01/17/20 Range/Units 04:50 05:46 06:00 WBC 11.5 H (4.5-11.0) K/mm3 MCV 75 L (79-97) fl MCH 25 L (28-32) pg RDW 15.5 H (13.2-15.2) % Seg Neuts % (Manual) 81.0 H (40.0-70.0) % Lymphocytes % (Manual) 10.0 L (13.4-35.0) % Seg Neutrophils # Man 9.3 H (1.8-7.7) K/mm3 ABG pH 7.494 H (7.350-7.450) pH Units ABG pO2 73.4 L (80.0-90.0) mm Hg Oxyhemoglobin 94.4 L (95.0-99.0) % Sodium (137-145) mmol/L Chloride (98-107) mmol/L BUN (7-17) mg/dL Glucose (65-100) mg/dL POC Glucose 170 H (70-105) 09/24/20 Range/Units 06:00 WBC (4.5-11.0) K/mm3 MCV (79-97) fl MCH (28-32) pg RDW (13.2-15.2) % Seg Neuts % (Manual) (40.0-70.0) % Lymphocytes % (Manual) (13.4-35.0) % Seg Neutrophils # Man (1.8-7.7) K/mm3 ABG pH (7.350-7.450) pH Units ABG pO2 (80.0-90.0) mm Hg Oxyhemoglobin (95.0-99.0) % Sodium 151 H (137-145) mmol/L Chloride 113.6 H (98-107) mmol/L BUN 40 H (7-17) mg/dL Glucose 149 H (65-100) mg/dL POC Glucose (70-105)
--- NOTE | 2020-01-17 09:28 | Progress Note ---
Assessment and Plan # Acute Kidney Injury: suspect tubular injury in setting of COVID-19, has improved with supportive measures. Does remain at higher risk of future ARACELI given bradycardia, overall criticall illness - strict Is/Os - avoid nephrotoxins - IVF prn - supportive care per primary, ICU - serologies, UP/C pending # Hypernatremia: due to free water deficit, stable at 151. Would increase free water with tube feeds as able (currently 180cc q4hrs) or start D5W if tolerated per pulmonary # Acute hypoxic respiratory failure, COVID-19+, Sepsis: appreciate ICU, ID recommendations # Bradycardia: appreciate cardiology input # Hyperkalemia: improved, following Subjective Date of service: 01/17/20 Principal diagnosis: Shortness of breath Interval history: No acute events noted per chart review. Patient noted to be in prone positioning Objective - Exam Narrative Exam: Due to COVID-19 and need to conserve PPE, patient was seen through window and not directly examined. Reviewed examination of primary team. - Vital Signs Vital signs: Vital Signs - 12hr 01/16/20 01/16/20 01/16/20 21:30 21:46 22:00 Temperature Pulse Rate 41 L 42 L 40 L Pulse Rate [ From Monitor] Respiratory 30 H 30 H 30 H Rate Blood Pressure 169/76 174/75 169/68 O2 Sat by Pulse 100 100 100 Oximetry 01/16/20 01/16/20 01/16/20 22:16 22:30 22:46 Temperature Pulse Rate 41 L 75 71 Pulse Rate [ From Monitor] Respiratory 30 H 30 H 30 H Rate Blood Pressure 169/75 169/75 165/77 O2 Sat by Pulse 100 100 100 Oximetry 01/16/20 01/16/20 01/16/20 23:00 23:16 23:30 Temperature Pulse Rate 68 54 L Pulse Rate [ From Monitor] Respiratory 30 H 30 H Rate Blood Pressure 224/115 221/115 221/115 O2 Sat by Pulse 100 97 97 Oximetry 01/16/20 01/17/20 01/17/20 23:45 00:00 00:10 Temperature 98.7 F Pulse Rate 59 L 54 L 50 L Pulse Rate [ 45 L From Monitor] Respiratory 30 H 20 Rate Blood Pressure 186/99 188/97 188/97 O2 Sat by Pulse 100 100 100 Oximetry 01/17/20 01/17/20 01/17/20 00:16 00:30 00:46 Temperature Pulse Rate 48 L 47 L 45 L Pulse Rate [ From Monitor] Respiratory 30 H 30 H 30 H Rate Blood Pressure 187/92 190/92 190/89 O2 Sat by Pulse 100 100 100 Oximetry 01/17/20 01/17/20 01/17/20 01:00 01:16 01:30 Temperature Pulse Rate 44 L 43 L 43 L Pulse Rate [ From Monitor] Respiratory 30 H 30 H 30 H Rate Blood Pressure 192/87 195/87 189/87 O2 Sat by Pulse 100 100 100 Oximetry 01/17/20 01/17/20 01/17/20 01:46 02:00 02:16 Temperature Pulse Rate 42 L 41 L 41 L Pulse Rate [ 45 L From Monitor] Respiratory 30 H 30 H 30 H Rate Blood Pressure 184/88 183/86 188/86 O2 Sat by Pulse 100 100 100 Oximetry 01/17/20 01/17/20 01/17/20 02:30 02:46 03:00 Temperature Pulse Rate 40 L 41 L 40 L Pulse Rate [ From Monitor] Respiratory 30 H 30 H 30 H Rate Blood Pressure 182/86 179/87 177/91 O2 Sat by Pulse 100 100 100 Oximetry 01/17/20 01/17/20 01/17/20 03:16 03:30 03:46 Temperature Pulse Rate 40 L 40 L 41 L Pulse Rate [ From Monitor] Respiratory 30 H 30 H 30 H Rate Blood Pressure 174/85 170/81 174/86 O2 Sat by Pulse 100 100 100 Oximetry 01/17/20 01/17/20 01/17/20 04:00 04:16 04:30 Temperature 97.5 F L Pulse Rate 39 L 40 L 79 Pulse Rate [ 45 L From Monitor] Respiratory 20 30 H 29 H Rate Blood Pressure 169/83 171/85 171/85 O2 Sat by Pulse 100 100 Oximetry 01/17/20 01/17/20 01/17/20 04:37 04:45 05:00 Temperature Pulse Rate 75 73 70 Pulse Rate [ From Monitor] Respiratory 30 H 29 H Rate Blood Pressure 207/115 203/112 195/99 O2 Sat by Pulse 100 100 Oximetry 01/17/20 01/17/20 01/17/20 05:15 05:30 05:46 Temperature Pulse Rate 65 61 55 L Pulse Rate [ From Monitor] Respiratory 30 H 29 H 30 H Rate Blood Pressure 194/100 187/97 180/94 O2 Sat by Pulse 100 100 100 Oximetry 01/17/20 01/17/20 01/17/20 06:00 06:16 06:30 Temperature Pulse Rate 53 L 49 L 46 L Pulse Rate [ From Monitor] Respiratory 29 H 30 H 29 H Rate Blood Pressure 181/93 170/87 164/91 O2 Sat by Pulse 100 100 100 Oximetry 01/17/20 01/17/20 01/17/20 06:45 07:00 07:16 Temperature Pulse Rate 45 L 44 L 46 L Pulse Rate [ From Monitor] Respiratory 30 H 29 H 30 H Rate Blood Pressure 166/87 159/82 152/76 O2 Sat by Pulse 100 100 100 Oximetry 01/17/20 01/17/20 01/17/20 07:30 07:46 08:00 Temperature 97.5 F L Pulse Rate 44 L 45 L 43 L Pulse Rate [ 42 L From Monitor] Respiratory 29 H 30 H 30 H Rate Blood Pressure 149/81 156/78 150/80 O2 Sat by Pulse 100 100 100 Oximetry 01/17/20 01/17/20 08:16 08:29 Temperature Pulse Rate 42 L 44 L Pulse Rate [ From Monitor] Respiratory 29 H Rate Blood Pressure 156/81 152/81 O2 Sat by Pulse 100 100 Oximetry - Lab 01/17/20 06:00 01/17/20 06:00 Most recent lab results ABG pH 7.494 pH Units (7.350-7.450) H 01/17/20 04:50 ABG pCO2 30.4 mm Hg 01/17/20 04:50 ABG pO2 73.4 mm Hg (80.0-90.0) L 01/17/20 04:50 ABG HCO3 22.8 mmol/L (20.0-26.0) 01/17/20 04:50 ABG O2 Saturation 96.1 % (95.0-99.0) 01/17/20 04:50 Calcium 8.9 mg/dL (8.4-10.2) 01/17/20 06:00 Magnesium 3.00 mg/dL (1.7-2.3) H 01/15/20 14:35 Medications & Allergies - Medications Allergies/Adverse Reactions: Allergies shellfish derived Allergy (Verified 01/11/20 18:37) Swelling Home Medications: Home Medications Medication Instructions Recorded Confirmed Last Taken Type glipiZIDE [Glipizide] 10 mg PO DAILY #30 tablet 08/15/18 01/13/20 Unknown Rx Active Medications: Generic Name Dose Route Start Last Admin Trade Name Freq PRN Reason Stop Dose Admin Acetaminophen 650 mg 01/11/20 18:55 Tylenol PO Q4H PRN Pain MILD(1-3)/Fever >100.5/CORDOVA Lipase/Protease/Amylase 1 each 01/14/20 11:00 Pancreaze 10,500 Unit FEEDTUBE PRN PRN For Clogged Feeding Tube Atropine Sulfate 1 mg 01/15/20 12:00 01/17/20 05:02 Atropine 0.1% (Cardiac) IV 1 mg ONCE PRN Administration HR < 40 Dexamethasone 6 mg 01/13/20 12:00 01/16/20 09:42 Decadron IV 01/22/20 10:01 6 mg Q24HR ASHISH Administration Enoxaparin Sodium 120 mg 01/13/20 12:00 01/16/20 21:24 Enoxaparin SUB-Q 120 mg Q12HR ASHISH Administration Famotidine 20 mg 01/13/20 10:00 01/16/20 21:24 Pepcid IV 20 mg BID ASHISH Administration Fentanyl 50 mcg 01/13/20 01:52 01/13/20 02:15 Sublimaze IV 50 mcg Q10MIN PRN Administration ANALGESIA Hydromorphone HCl 0.25 mg 01/11/20 18:59 01/12/20 21:36 Dilaudid IV 0.25 mg Q4H PRN Administration Pain, Moderate (4-6) Hydrophilic Ointment 1 applic 01/13/20 01:52 Vaseline Lip Therapy TP Q2HR PRN Dry Lips Fentanyl Citrate 2,000 mcg in 100 mls @ 5.69 mls/hr 01/13/20 02:00 01/17/20 07:31 Fentanyl Drip Premix IV 4 mcg/kg/hr TITR ASHISH 22.76 mls/hr Administration Protocol 1 MCG/KG/HR Midazolam HCl 100 mg/ Sodium 100 mls @ 2 mls/hr 01/13/20 02:00 01/16/20 21:52 Chloride IV 5 mg/hr TITR ASHISH 5 mls/hr Administration Protocol 2 MG/HR REMDESIVIR 100 mg/ Sodium 250 mls @ 500 mls/hr 01/14/20 21:00 01/17/20 02:36 Chloride IV 01/17/20 21:29 Infused Q24HR@2100 [facility] Infusion Propofol 1,000 mg in 100 mls @ 3.414 mls/hr 01/14/20 23:21 01/17/20 04:12 Diprivan 10 Mg/Ml IV 30 mcg/kg/min TITR ASHISH 20.484 mls/hr Titration Protocol 5 MCG/KG/MIN Insulin Glargine 10 units 01/16/20 10:00 01/16/20 11:06 Lantus SUB-Q 10 units DAILY [facility] Administration Insulin Human Lispro 0 unit 01/13/20 11:00 01/17/20 05:33 Humalog SUB-Q Not Given Q6H [facility] Protocol Midazolam HCl 2 mg 01/13/20 01:52 Versed IV Q10MIN PRN Sedation Multi-Ingred Cream/Lotion/Oil/Oint 1 applic 01/13/20 01:52 Artificial Tears Ophth Oint OU Q4HR PRN Dry Eye(s) Ondansetron HCl 4 mg 01/11/20 18:55 Zofran IV Q8H PRN Nausea And Vomiting Simple Syrup 15 ml 01/14/20 11:00 Simple Syrup FEEDTUBE PRN PRN Hypoglycemia Simple Syrup 30 ml 01/14/20 11:00 Simple Syrup FEEDTUBE PRN PRN Hypoglycemia Sodium Bicarbonate 325 mg 01/14/20 11:00 Sodium Bicarbonate FEEDTUBE PRN PRN For Clogged Feeding Tube Sodium Chloride 10 ml 01/11/20 22:00 01/16/20 21:36 Sodium Chloride Flush Syringe 10 Ml IV 10 ml BID ASHISH Administration Sodium Chloride 10 ml 01/11/20 18:55 Sodium Chloride Flush Syringe 10 Ml IV PRN PRN LINE FLUSH Sodium Chloride 50 ml 01/17/20 21:00 Nacl 0.9% IV 01/17/20 23:59 2100 [facility]
[2020-01-17] MEDS: dexAMETHasone 4 MG/ML VIAL IV SCH (09:29)
[2020-01-17] MEDS: FAMOTIDINE 20 MG/2 ML INJ IV SCH ×2 (09:30→21:14)
[2020-01-17] MEDS: ENOXAPARIN 120 MG/0.8 ML INJ SUB-Q SCH ×2 (09:30→21:20)
[2020-01-17] MEDS: INSULIN GLARGINE 100 UNITS/ML SUB-Q SCH (09:30)
--- NOTE | 2020-01-17 10:55 | Progress Note ---
Assessment and Plan Sinus bradycardia likely vasovagal TSH 0.221 COVID -19 viral pneumonia Respiratory failure Diabetes Conservative cardiac management. Subjective Date of service: 01/17/20 Principal diagnosis: Shortness of breath Interval history: Patient remains intubated on mechanical ventilation. Sinus bradycardia, rate ranging in the low 40s on telemetry. Objective Vital Signs Temp Pulse Pulse Resp BP Pulse Ox 01/17/20 10:15 40 L 30 H 132/76 100 01/17/20 10:00 44 L 30 H 122/70 100 01/17/20 09:46 45 L 30 H 128/68 100 01/17/20 09:30 42 L 30 H 141/78 100 01/17/20 09:16 44 L 30 H 138/73 100 01/17/20 09:00 42 L 30 H 153/81 01/17/20 08:46 42 L 30 H 155/83 01/17/20 08:30 44 L 30 H 152/81 01/17/20 08:29 44 L 152/81 01/17/20 08:16 42 L 29 H 156/81 01/17/20 08:00 43 L 42 L 30 H 150/80 01/17/20 07:46 97.5 F L 45 L 30 H 156/78 01/17/20 07:30 44 L 29 H 149/81 01/17/20 07:16 46 L 30 H 152/76 01/17/20 07:00 44 L 29 H 159/82 01/17/20 06:45 45 L 30 H 166/87 01/17/20 06:30 46 L 29 H 164/91 01/17/20 06:16 49 L 30 H 170/87 01/17/20 06:00 53 L 29 H 181/93 01/17/20 05:46 55 L 30 H 180/94 01/17/20 05:30 61 29 H 187/97 01/17/20 05:15 65 30 H 194/100 01/17/20 05:00 70 29 H 195/99 01/17/20 04:45 73 30 H 203/112 01/17/20 04:37 75 207/115 01/17/20 04:30 79 29 H 171/85 01/17/20 04:16 40 L 30 H 171/85 01/17/20 04:00 97.5 F L 39 L 45 L 20 169/83 01/17/20 03:46 41 L 30 H 174/86 01/17/20 03:30 40 L 30 H 170/81 01/17/20 03:16 40 L 30 H 174/85 01/17/20 03:00 40 L 30 H 177/91 01/17/20 02:46 41 L 30 H 179/87 01/17/20 02:30 40 L 30 H 182/86 01/17/20 02:16 41 L 30 H 188/86 01/17/20 02:00 41 L 45 L 30 H 183/86 01/17/20 01:46 42 L 30 H 184/88 01/17/20 01:30 43 L 30 H 189/87 01/17/20 01:16 43 L 30 H 195/87 01/17/20 01:00 44 L 30 H 192/87 01/17/20 00:46 45 L 30 H 190/89 01/17/20 00:30 47 L 30 H 190/92 01/17/20 00:16 48 L 30 H 187/92 01/17/20 00:10 50 L 188/97 01/17/20 00:00 98.7 F 54 L 45 L 20 188/97 01/16/20 23:45 59 L 30 H 186/99 01/16/20 23:30 54 L 30 H 221/115 97 01/16/20 23:16 221/115 97 01/16/20 23:00 68 30 H 224/115 01/16/20 22:46 71 30 H 165/77 01/16/20 22:30 75 30 H 169/75 01/16/20 22:16 41 L 30 H 169/75 01/16/20 22:00 40 L 30 H 169/68 01/16/20 21:46 42 L 30 H 174/75 01/16/20 21:30 41 L 30 H 169/76 01/16/20 21:16 43 L 30 H 166/79 01/16/20 21:00 43 L 30 H 160/75 01/16/20 20:51 48 L 176/91 98 01/16/20 20:46 44 L 30 H 184/82 01/16/20 20:30 46 L 30 H 209/90 01/16/20 20:16 50 L 30 H 203/100 01/16/20 20:00 98.3 F 54 L 45 L 20 200/102 100 01/16/20 19:46 61 29 H 189/107 01/16/20 19:30 67 29 H 193/107 01/16/20 19:15 72 29 H 190/113 01/16/20 19:09 73 30 H 197/113 01/16/20 19:00 76 22 194/112 01/16/20 18:55 79 30 H 209/119 01/16/20 18:46 79 30 H 208/121 01/16/20 18:30 39 L 25 H 121/88 01/16/20 18:16 40 L 19 120/84 01/16/20 18:00 42 L 29 H 152/72 01/16/20 17:46 55 L 25 H 149/89 01/16/20 17:30 50 L 30 H 130/74 01/16/20 17:15 59 L 30 H 127/68 01/16/20 17:00 46 L 30 H 170/90 01/16/20 16:46 40 L 30 H 179/84 01/16/20 16:30 40 L 30 H 176/81 01/16/20 16:27 41 L 173/85 01/16/20 16:16 43 L 30 H 172/83 01/16/20 16:01 42 L 30 H 178/84 01/16/20 16:00 42 L 42 L 20 01/16/20 15:45 43 L 30 H 181/88 01/16/20 15:31 43 L 30 H 188/91 01/16/20 15:15 43 L 30 H 179/89 01/16/20 15:01 46 L 30 H 181/90 01/16/20 14:45 47 L 9 L 181/92 01/16/20 14:30 52 L 30 H 188/105 01/16/20 14:15 59 L 30 H 186/104 01/16/20 14:00 66 30 H 190/112 01/15/20 13:45 70 30 H 189/113 100 01/16/20 13:30 75 30 H 194/115 100 01/16/20 13:15 76 29 H 157/84 100 01/16/20 13:01 47 L 19 157/76 100 01/16/20 12:53 40 L 149/80 100 01/16/20 12:45 40 L 30 H 148/80 100 01/16/20 12:31 48 L 6 L 140/72 93 01/16/20 12:15 43 L 25 H 180/86 99 01/16/20 12:01 42 L 24 167/85 99 01/16/20 12:00 98.3 F 41 L 41 L 30 H 98 01/16/20 11:45 44 L 20 163/86 99 01/16/20 11:30 42 L 17 162/85 98 01/16/20 11:15 42 L 26 H 162/85 98 01/16/20 11:00 42 L 26 H 161/85 98 - Physical Examination Narrative exam: Deferred due to isolation protocol. Cardiac: Positive: Bradycardia - Labs and Meds CBC 01/17/20 Range/Units 06:00 WBC 11.5 H (4.5-11.0) K/mm3 RBC 4.97 (3.65-5.03) M/mm3 Hgb 12.2 (10.1-14.3) gm/dl Hct 37.3 (30.3-42.9) % Plt Count 327 (140-440) K/mm3 Comprehensive Metabolic Panel 01/17/20 Range/Units 06:00 Sodium 151 H (137-145) mmol/L Potassium 3.7 (3.6-5.0) mmol/L Chloride 113.6 H (98-107) mmol/L Carbon Dioxide 23 (22-30) mmol/L BUN 40 H (7-17) mg/dL Creatinine 0.9 (0.6-1.2) mg/dL Glucose 149 H (65-100) mg/dL Calcium 8.9 (8.4-10.2) mg/dL - Allied health notes Allied health notes reviewed: RT
--- NOTE | 2020-01-17 12:32 | Progress Note ---
Assessment and Plan Acute hypoxemic respiratory [place] [facility] [place] infection Multifocal pneumonia Extreme obesity ARACELI- vasomotor nephropathy/COVID Thrombocytopenia Hyperglycemia Hypernatrmia - stat EKG to address QT interval - bradycardia management per cardioplogy - avoid Qt prolonging drugs - reduced set rate to 20/min - repeat ABG at 9pm - continue Critical care proning per protocol (Prone this evening) - Stopped Propofol since she has had significant bradycardia and use Fentanyl/Midazolam for sedation - NGT/small bowel feeding tube, continue enteric nutrition at goal rate as tolerated - Free water flushes for hypernatremia, monitor closely - continue to avoid nephrotoxins, closely monitor renal function, renally dose all medications - Fluid conservative measures - VAP bundle addressed - CXR, ABG prn - Therapeutic anticoagulation with Lovenox - Permissive hypercapnia is acceptable - continue bronchodilators with pulmonary hygiene per RT - Monitor airway pressures, lung protective strategies - wean off benzodiazepines as soon as possible , reduce the possibility of delirium - prn analgesia per CPOT score - sedation prn for target RASS -2 to -3 - Continue to wean supplemental oxygen for target O2 sats > 92% - conservative fluid management measures as tolerated by hemodynamics and renal function - Bronchodilators with pulmonary hygiene per RT - Antibiotics for CAP , complete course. ID following - Accuchecks with glycemic control per SSI (While critically ill target blood glucose of 140-180 mg/dL; avoid hypoglycemia) - Maintenance of sleep-wake cycle, avoid delirium - Aspiration precautions, HOB >40 - Stress ulcer prophylaxis - Mobility protocol, off loading and skin assessment for pressure ulcer prevention - Monitor hemodynamics closely - Supportive transfusions as indicated to keep HgB >7g/dL COVID SPECIFIC INTERVENTIONS: - Airborne, contact isolation for COVID per facility protocols - IV steroids-dexamethasone - Trend d-dimer,and other inflammatory markers per facility protocol - Evaluate for Convalescent plasma therapy- patient is blood less medicine and will not accept COVID convalescent plasma - Continue Remdesivir day 2 of 5. CrCl=84 - Continue ceftriaxone 2 gm IV qday and azithromycin 500 mg PO qday to complete 5 and 3 days respectively for treatment of CAP - Monitor QTc Discussed with the ICU team-RT,RN Life threatening condition- COVID 19 ARDS acute hypoxemic respiratory [place] [facility] [place] Mortality/Morbidity- High Complexity of medical decision making- High CONDITION: CRITICAL PROGNOSIS: GUARDED CODE STATUS: FULL CODE The high probability of a clinically significant, sudden or life-threatening deterioration of the [respiratory & neurology, renal ] system(s) required my full and direct attention, intervention and personal management. The aggregate critical care time was [35] minutes without overlap. Time includes spent on; [x] Data Review and interpretation [x] Patient assessment and monitoring of vital signs [x] Documentation [x] Medication orders and management Subjective Date of service: 01/17/20 Principal diagnosis: Ac. hypoxemic resp failure; COVID infection; PNA; ARACELI; Thrombocytopenia Interval history: Patient is seen today for: Acute hypoxemic respiratory failure; Severe COVID infection; Multifocal pneumonia; Extreme obesity; ARACELI; Thrombocytopenia Seen and examined at bedside; 24hour events reviewed; nursing and respiratory care staff consulted; no adverse overnight events reported to me; resting peacefully in bed; remains on MVS; tolerating proning protocols well so far; FiO2 down to 40% but peep at 16 cm H2O; sedated; has had episodes of mostly as ymptomatic bradycardia without hypotension but thankfully no Atropine needed today. Objective Vital Signs - 12hr 01/17/20 01/17/20 01/17/20 00:46 01:00 01:16 Temperature Pulse Rate 45 L 44 L 43 L Pulse Rate [ From Monitor] Respiratory 30 H 30 H 30 H Rate Blood Pressure 190/89 192/87 195/87 O2 Sat by Pulse 100 100 100 Oximetry 01/17/20 01/17/20 01/17/20 01:30 01:46 02:00 Temperature Pulse Rate 43 L 42 L 41 L Pulse Rate [ 45 L From Monitor] Respiratory 30 H 30 H 30 H Rate Blood Pressure 189/87 184/88 183/86 O2 Sat by Pulse 100 100 100 Oximetry 01/17/20 01/17/20 01/17/20 02:16 02:30 02:46 Temperature Pulse Rate 41 L 40 L 41 L Pulse Rate [ From Monitor] Respiratory 30 H 30 H 30 H Rate Blood Pressure 188/86 182/86 179/87 O2 Sat by Pulse 100 100 100 Oximetry 01/17/20 01/17/20 01/17/20 03:00 03:16 03:30 Temperature Pulse Rate 40 L 40 L 40 L Pulse Rate [ From Monitor] Respiratory 30 H 30 H 30 H Rate Blood Pressure 177/91 174/85 170/81 O2 Sat by Pulse 100 100 100 Oximetry 01/17/20 01/17/20 01/17/20 03:46 04:00 04:16 Temperature 97.5 F L Pulse Rate 41 L 39 L 40 L Pulse Rate [ 45 L From Monitor] Respiratory 30 H 20 30 H Rate Blood Pressure 174/86 169/83 171/85 O2 Sat by Pulse 100 100 100 Oximetry 01/17/20 01/17/20 01/17/20 04:30 04:37 04:45 Temperature Pulse Rate 79 75 73 Pulse Rate [ From Monitor] Respiratory 29 H 30 H Rate Blood Pressure 171/85 207/115 203/112 O2 Sat by Pulse 100 Oximetry 01/17/20 01/17/20 01/17/20 05:00 05:15 05:30 Temperature Pulse Rate 70 65 61 Pulse Rate [ From Monitor] Respiratory 29 H 30 H 29 H Rate Blood Pressure 195/99 194/100 187/97 O2 Sat by Pulse 100 100 100 Oximetry 01/17/20 01/17/20 01/17/20 05:46 06:00 06:16 Temperature Pulse Rate 55 L 53 L 49 L Pulse Rate [ From Monitor] Respiratory 30 H 29 H 30 H Rate Blood Pressure 180/94 181/93 170/87 O2 Sat by Pulse 100 100 100 Oximetry 01/17/20 01/17/20 01/17/20 06:30 06:45 07:00 Temperature Pulse Rate 46 L 45 L 44 L Pulse Rate [ From Monitor] Respiratory 29 H 30 H 29 H Rate Blood Pressure 164/91 166/87 159/82 O2 Sat by Pulse 100 100 100 Oximetry 01/17/20 01/17/20 01/17/20 07:16 07:30 07:46 Temperature 97.5 F L Pulse Rate 46 L 44 L 45 L Pulse Rate [ From Monitor] Respiratory 30 H 29 H 30 H Rate Blood Pressure 152/76 149/81 156/78 O2 Sat by Pulse 100 100 100 Oximetry 01/17/20 01/17/20 01/17/20 08:00 08:16 08:29 Temperature Pulse Rate 43 L 42 L 44 L Pulse Rate [ 42 L From Monitor] Respiratory 30 H 29 H Rate Blood Pressure 150/80 156/81 152/81 O2 Sat by Pulse 100 100 100 Oximetry 01/17/20 01/17/20 01/17/20 08:30 08:46 09:00 Temperature Pulse Rate 44 L 42 L 42 L Pulse Rate [ From Monitor] Respiratory 30 H 30 H 30 H Rate Blood Pressure 152/81 155/83 153/81 O2 Sat by Pulse 100 100 100 Oximetry 01/17/20 01/17/20 01/17/20 09:16 09:30 09:46 Temperature Pulse Rate 44 L 42 L 45 L Pulse Rate [ From Monitor] Respiratory 30 H 30 H 30 H Rate Blood Pressure 138/73 141/78 128/68 O2 Sat by Pulse 100 100 100 Oximetry 01/17/20 01/17/20 01/17/20 10:00 10:15 11:15 Temperature Pulse Rate 44 L 40 L 43 L Pulse Rate [ From Monitor] Respiratory 30 H 30 H Rate Blood Pressure 122/70 132/76 164/86 O2 Sat by Pulse 100 100 100 Oximetry Constitutional: no acute distress, other (Morbidly obese AAW, supine ETT 7.5 at 23cm CHAD) Eyes: non-icteric ENT: oropharynx moist Neck: supple, no lymphadenopathy, no JVD Effort: mildly labored Ascultation: Bilateral: diminished breath sounds, rhonchi Percussion: Bilateral: not dull Cardiovascular: regular rate and rhythm, other Gastrointestinal: normoactive bowel sounds, soft, non-tender, non-distended (protuberant) Integumentary: normal Extremities: no cyanosis, no edema, pulses normal, no ischemia or petechiae Neurologic: non-focal exam (grossly), pupils equal and round, CN II-XII normal, unable to assess Psychiatric: other (sedated) CBC and BMP: 01/17/20 06:00 01/17/20 06:00 ABG, PT/INR, D-dimer: ABG ABG pH 7.494 pH Units (7.350-7.450) H 01/17/20 04:50 POC ABG pCO2 33.9 mmHg (32.0-48.0) 01/16/20 03:33 ABG pCO2 30.4 mm Hg 01/17/20 04:50 POC ABG pO2 86.3 mmHg (83-108) 01/16/20 03:33 ABG pO2 73.4 mm Hg (80.0-90.0) L 01/17/20 04:50 POC ABG HCO3 24.5 01/16/20 03:33 ABG O2 Saturation 96.1 % (95.0-99.0) 01/17/20 04:50 PT/INR, D-dimer D-Dimer > 39280 ng/mlDDU (0-234) H 01/14/20 09:47 Abnormal lab findings: Abnormal Labs 01/11/20 01/11/20 01/11/20 17:22 17:22 17:22 WBC RBC MCV MCH RDW Plt Count Lymph % (Auto) [place] # Seg Neutrophils % Seg Neuts % (Manual) Lymphocytes % (Manual) Seg Neutrophils # Seg Neutrophils # Man Lymphocytes # (Manual) D-Dimer 622.52 H ABG pH POC ABG pCO2 POC ABG pO2 ABG pO2 ABG O2 Saturation ABG Base Excess ABG Oxyhemoglobin Oxyhemoglobin Sodium Potassium Chloride 97.6 L Carbon Dioxide 18 L BUN Creatinine Glucose 199 H POC Glucose Lactic Acid 2.20 H* Ferritin AST 68 H Magnesium Lactate Dehydrogenase C-Reactive Protein Total Protein Albumin 3.0 L TSH Coronavirus (PCR) 01/11/20 01/11/20 01/11/20 17:22 17:22 23:29 WBC RBC MCV MCH RDW Plt Count Lymph % (Auto) [place] # Seg Neutrophils % Seg Neuts % (Manual) Lymphocytes % (Manual) Seg Neutrophils # Seg Neutrophils # Man Lymphocytes # (Manual) D-Dimer ABG pH POC ABG pCO2 POC ABG pO2 ABG pO2 ABG O2 Saturation ABG Base Excess ABG Oxyhemoglobin Oxyhemoglobin Sodium Potassium Chloride Carbon Dioxide BUN Creatinine Glucose 202 H POC Glucose Lactic Acid 2.10 H* Ferritin 270.3 H AST Magnesium Lactate Dehydrogenase 610 H C-Reactive Protein 23.80 H Total Protein Albumin TSH Coronavirus (PCR) 01/12/20 01/12/20 01/12/20 07:07 07:07 09:00 WBC RBC 5.31 H MCV 76 L MCH 25 L RDW 15.5 H Plt Count Lymph % (Auto) 11.2 L [place] # Seg Neutrophils % 85.2 H Seg Neuts % (Manual) Lymphocytes % (Manual) Seg Neutrophils # 9.2 H Seg Neutrophils # Man Lymphocytes # (Manual) D-Dimer ABG pH POC ABG pCO2 POC ABG pO2 ABG pO2 ABG O2 Saturation ABG Base Excess ABG Oxyhemoglobin Oxyhemoglobin Sodium Potassium Chloride Carbon Dioxide 21 L BUN 23 H Creatinine Glucose 206 H POC Glucose Lactic Acid Ferritin AST Magnesium Lactate Dehydrogenase C-Reactive Protein Total Protein Albumin TSH Coronavirus (PCR) Positive A 01/13/20 01/13/20 01/13/20 01:02 04:45 05:10 WBC RBC MCV MCH RDW Plt Count Lymph % (Auto) [place] # Seg Neutrophils % Seg Neuts % (Manual) Lymphocytes % (Manual) Seg Neutrophils # Seg Neutrophils # Man Lymphocytes # (Manual) D-Dimer > 47116 H ABG pH 7.19 L POC ABG pCO2 56.2 H POC ABG pO2 44.3 L 62.5 L ABG pO2 ABG O2 Saturation ABG Base Excess ABG Oxyhemoglobin 77.5 L 86.5 L Oxyhemoglobin Sodium Potassium Chloride Carbon Dioxide BUN Creatinine Glucose POC Glucose Lactic Acid Ferritin AST Magnesium Lactate Dehydrogenase C-Reactive Protein Total Protein Albumin TSH Coronavirus (PCR) 01/13/20 01/13/20 01/13/20 05:10 05:54 12:07 WBC RBC MCV MCH RDW Plt Count Lymph % (Auto) [place] # Seg Neutrophils % Seg Neuts % (Manual) Lymphocytes % (Manual) Seg Neutrophils # Seg Neutrophils # Man Lymphocytes # (Manual) D-Dimer ABG pH POC ABG pCO2 POC ABG pO2 ABG pO2 ABG O2 Saturation ABG Base Excess ABG Oxyhemoglobin Oxyhemoglobin Sodium Potassium Chloride Carbon Dioxide BUN Creatinine Glucose POC Glucose 356 H 309 H Lactic Acid Ferritin AST Magnesium Lactate Dehydrogenase 999 H C-Reactive Protein Total Protein Albumin TSH Coronavirus (PCR) 01/13/20 01/13/20 01/13/20 12:54 18:46 18:50 WBC 14.0 H RBC MCV 76 L MCH 25 L RDW 15.8 H Plt Count 113 L Lymph % (Auto) [place] # Seg Neutrophils % Seg Neuts % (Manual) 88.0 H Lymphocytes % (Manual) 2.0 L Seg Neutrophils # Seg Neutrophils # Man 12.3 H Lymphocytes # (Manual) 0.3 L D-Dimer ABG pH 7.290 L POC ABG pCO2 POC ABG pO2 ABG pO2 60.2 L ABG O2 Saturation 88.6 L ABG Base Excess -2.7 L ABG Oxyhemoglobin Oxyhemoglobin 87.1 L Sodium Potassium Chloride Carbon Dioxide BUN Creatinine Glucose POC Glucose 268 H Lactic Acid Ferritin AST Magnesium Lactate Dehydrogenase C-Reactive Protein Total Protein Albumin TSH Coronavirus (PCR) 01/13/20 01/14/20 01/14/20 23:53 00:31 03:13 WBC RBC MCV MCH RDW Plt Count Lymph % (Auto) [place] # Seg Neutrophils % Seg Neuts % (Manual) Lymphocytes % (Manual) Seg Neutrophils # Seg Neutrophils # Man Lymphocytes # (Manual) D-Dimer ABG pH POC ABG pCO2 POC ABG pO2 ABG pO2 132.6 H ABG O2 Saturation ABG Base Excess -2.7 L ABG Oxyhemoglobin Oxyhemoglobin Sodium Potassium 5.3 H Chloride Carbon Dioxide BUN 55 H Creatinine 1.6 H Glucose 268 H POC Glucose 259 H Lactic Acid Ferritin AST 46 H Magnesium Lactate Dehydrogenase C-Reactive Protein Total Protein 6.1 L Albumin 3.1 L TSH Coronavirus (PCR) 01/14/20 01/14/20 01/14/20 05:23 06:06 09:47 WBC RBC MCV MCH RDW Plt Count Lymph % (Auto) [place] # Seg Neutrophils % Seg Neuts % (Manual) Lymphocytes % (Manual) Seg Neutrophils # Seg Neutrophils # Man Lymphocytes # (Manual) D-Dimer > 00978 H ABG pH POC ABG pCO2 POC ABG pO2 ABG pO2 ABG O2 Saturation ABG Base Excess ABG Oxyhemoglobin Oxyhemoglobin Sodium Potassium 5.5 H Chloride 107.6 H Carbon Dioxide 21 L BUN 58 H Creatinine 1.7 H Glucose 231 H POC Glucose 231 H Lactic Acid Ferritin AST Magnesium Lactate Dehydrogenase C-Reactive Protein Total Protein Albumin TSH Coronavirus (PCR) 01/14/20 01/14/20 01/14/20 09:47 12:20 16:00 WBC RBC MCV MCH RDW Plt Count Lymph % (Auto) [place] # Seg Neutrophils % Seg Neuts % (Manual) Lymphocytes % (Manual) Seg Neutrophils # Seg Neutrophils # Man Lymphocytes # (Manual) D-Dimer ABG pH POC ABG pCO2 POC ABG pO2 ABG pO2 69.3 L ABG O2 Saturation 94.4 L ABG Base Excess ABG Oxyhemoglobin Oxyhemoglobin 92.7 L Sodium Potassium Chloride 107.2 H Carbon Dioxide 21 L BUN 63 H Creatinine 1.5 H Glucose 217 H POC Glucose 238 H Lactic Acid Ferritin AST Magnesium Lactate Dehydrogenase C-Reactive Protein Total Protein 6.0 L Albumin 2.7 L TSH Coronavirus (PCR) 01/14/20 01/14/20 01/14/20 18:24 19:01 23:50 WBC RBC MCV MCH RDW Plt Count Lymph % (Auto) [place] # Seg Neutrophils % Seg Neuts % (Manual) Lymphocytes % (Manual) Seg Neutrophils # Seg Neutrophils # Man Lymphocytes # (Manual) D-Dimer ABG pH POC ABG pCO2 POC ABG pO2 ABG pO2 ABG O2 Saturation ABG Base Excess ABG Oxyhemoglobin Oxyhemoglobin Sodium 146 H Potassium 5.9 H Chloride 108.0 H Carbon Dioxide 20 L BUN 61 H Creatinine 1.4 H Glucose 254 H POC Glucose 228 H 321 H Lactic Acid Ferritin AST Magnesium Lactate Dehydrogenase C-Reactive Protein Total Protein Albumin TSH Coronavirus (PCR) 01/15/20 01/15/20 01/15/20 03:37 03:57 03:57 WBC 14.9 H RBC MCV 75 L MCH 25 L RDW 15.4 H Plt Count Lymph % (Auto) 8.6 L [place] # 1.0 H Seg Neutrophils % 84.2 H Seg Neuts % (Manual) Lymphocytes % (Manual) Seg Neutrophils # 12.5 H Seg Neutrophils # Man Lymphocytes # (Manual) D-Dimer ABG pH 7.480 H POC ABG pCO2 POC ABG pO2 76.7 L ABG pO2 ABG O2 Saturation ABG Base Excess ABG Oxyhemoglobin Oxyhemoglobin Sodium 152 H Potassium Chloride 113.0 H Carbon Dioxide BUN 52 H Creatinine Glucose 288 H POC Glucose Lactic Acid Ferritin AST Magnesium Lactate Dehydrogenase C-Reactive Protein Total Protein Albumin TSH Coronavirus (PCR) 01/15/20 01/15/20 01/15/20 05:50 11:56 14:35 WBC RBC MCV MCH RDW Plt Count Lymph % (Auto) [place] # Seg Neutrophils % Seg Neuts % (Manual) Lymphocytes % (Manual) Seg Neutrophils # Seg Neutrophils # Man Lymphocytes # (Manual) D-Dimer ABG pH POC ABG pCO2 POC ABG pO2 ABG pO2 ABG O2 Saturation ABG Base Excess ABG Oxyhemoglobin Oxyhemoglobin Sodium Potassium Chloride Carbon Dioxide BUN Creatinine Glucose POC Glucose 259 H 162 H Lactic Acid Ferritin 332.4 H AST Magnesium Lactate Dehydrogenase C-Reactive Protein Total Protein Albumin TSH Coronavirus (PCR) 01/15/20 01/15/20 01/15/20 14:35 14:35 14:35 WBC RBC MCV MCH RDW Plt Count Lymph % (Auto) [place] # Seg Neutrophils % Seg Neuts % (Manual) Lymphocytes % (Manual) Seg Neutrophils # Seg Neutrophils # Man Lymphocytes # (Manual) D-Dimer ABG pH POC ABG pCO2 POC ABG pO2 ABG pO2 ABG O2 Saturation ABG Base Excess ABG Oxyhemoglobin Oxyhemoglobin Sodium Potassium Chloride Carbon Dioxide BUN Creatinine Glucose POC Glucose Lactic Acid Ferritin AST Magnesium 3.00 H Lactate Dehydrogenase 747 H C-Reactive Protein 7.60 H Total Protein Albumin TSH 0.221 L Coronavirus (PCR) 01/15/20 01/15/20 01/15/20 16:18 17:31 23:26 WBC RBC MCV MCH RDW Plt Count Lymph % (Auto) [place] # Seg Neutrophils % Seg Neuts % (Manual) Lymphocytes % (Manual) Seg Neutrophils # Seg Neutrophils # Man Lymphocytes # (Manual) D-Dimer ABG pH 7.510 H POC ABG pCO2 POC ABG pO2 76.6 L ABG pO2 ABG O2 Saturation ABG Base Excess ABG Oxyhemoglobin Oxyhemoglobin Sodium Potassium Chloride Carbon Dioxide BUN Creatinine Glucose POC Glucose 239 H 226 H Lactic Acid Ferritin AST Magnesium Lactate Dehydrogenase C-Reactive Protein Total Protein Albumin TSH Coronavirus (PCR) 01/16/20 01/16/20 01/16/20 03:33 04:00 04:00 WBC 13.6 H RBC MCV 74 L MCH 25 L RDW 15.4 H Plt Count Lymph % (Auto) [place] # Seg Neutrophils % Seg Neuts % (Manual) 91.0 H Lymphocytes % (Manual) 5.0 L Seg Neutrophils # Seg Neutrophils # Man 12.4 H Lymphocytes # (Manual) 0.7 L D-Dimer ABG pH 7.477 H POC ABG pCO2 POC ABG pO2 ABG pO2 ABG O2 Saturation ABG Base Excess ABG Oxyhemoglobin Oxyhemoglobin Sodium 151 H Potassium Chloride 113.8 H Carbon Dioxide BUN 45 H Creatinine Glucose 213 H POC Glucose Lactic Acid Ferritin AST Magnesium Lactate Dehydrogenase C-Reactive Protein Total Protein Albumin TSH Coronavirus (PCR) 01/16/20 01/16/20 01/16/20 05:45 12:02 17:27 WBC RBC MCV MCH RDW Plt Count Lymph % (Auto) [place] # Seg Neutrophils % Seg Neuts % (Manual) Lymphocytes % (Manual) Seg Neutrophils # Seg Neutrophils # Man Lymphocytes # (Manual) D-Dimer ABG pH POC ABG pCO2 POC ABG pO2 ABG pO2 ABG O2 Saturation ABG Base Excess ABG Oxyhemoglobin Oxyhemoglobin Sodium Potassium Chloride Carbon Dioxide BUN Creatinine Glucose POC Glucose 202 H 186 H 240 H Lactic Acid Ferritin AST Magnesium Lactate Dehydrogenase C-Reactive Protein Total Protein Albumin TSH Coronavirus (PCR) 01/17/20 01/17/20 01/17/20 00:07 04:50 05:46 WBC RBC MCV MCH RDW Plt Count Lymph % (Auto) [place] # Seg Neutrophils % Seg Neuts % (Manual) Lymphocytes % (Manual) Seg Neutrophils # Seg Neutrophils # Man Lymphocytes # (Manual) D-Dimer ABG pH 7.494 H POC ABG pCO2 POC ABG pO2 ABG pO2 73.4 L ABG O2 Saturation ABG Base Excess ABG Oxyhemoglobin Oxyhemoglobin 94.4 L Sodium Potassium Chloride Carbon Dioxide BUN Creatinine Glucose POC Glucose 207 H 170 H Lactic Acid Ferritin AST Magnesium Lactate Dehydrogenase C-Reactive Protein Total Protein Albumin TSH Coronavirus (PCR) 01/17/20 01/17/20 06:00 06:00 WBC 11.5 H RBC MCV 75 L MCH 25 L RDW 15.5 H Plt Count Lymph % (Auto) [place] # Seg Neutrophils % Seg Neuts % (Manual) 81.0 H Lymphocytes % (Manual) 10.0 L Seg Neutrophils # Seg Neutrophils # Man 9.3 H Lymphocytes # (Manual) D-Dimer ABG pH POC ABG pCO2 POC ABG pO2 ABG pO2 ABG O2 Saturation ABG Base Excess ABG Oxyhemoglobin Oxyhemoglobin Sodium 151 H Potassium Chloride 113.6 H Carbon Dioxide BUN 40 H Creatinine Glucose 149 H POC Glucose Lactic Acid Ferritin AST Magnesium Lactate Dehydrogenase C-Reactive Protein Total Protein Albumin TSH Coronavirus (PCR) Chest x-ray: image reviewed (ETT well positined; overpenetrated film) Allied health notes reviewed: RT
[2020-01-17 14:44] LABS: C-Reactive Protein 4.6 mg/dL (0.00-1.30)
--- NOTE | 2020-01-17 15:13 | XRay Report ---
CHEST 1 VIEW INDICATION / CLINICAL INFORMATION: R arm PICC placement. COMPARISON: 01/16/2020 FINDINGS: SUPPORT DEVICES: Interval placement of PICC line from right upper extremity. The tip is at the cavoat rial junction and appears to be in appropriate position. Indwelling NG tube and ET tube remain in sat isfactory position. HEART / MEDIASTINUM: No significant abnormality. LUNGS / PLEURA: Mild pulmonary vascular congestion. Otherwise negative. No pneumothorax. ADDITIONAL FINDINGS: No significant additional findings. IMPRESSION: 1. Appropriate positioning of newly placed right PICC line. 2. Mild pulmonary vascular congestion. Signer Name: Lizzie Alegre MD Signed: 01/17/2020 3:09 PM Workstation Name: [id number]
[2020-01-17] MEDS: MIDAZOLAM 100 MG in SODIUM CHLORIDE 0.9% 80 ML IV SCH (18:40)
[2020-01-17] MEDS ORDERED: DOPamine/D5W 800 MG/250 ML 800 MG/250 ML BAG IV SCH (19:00)
[2020-01-17] MEDS ORDERED: SODIUM CHLORIDE 0.9% 50 ML IVPB IV SCH (21:00)
[2020-01-17] MEDS: REMDESIVIR 100 MG in SODIUM CHLORIDE 0.9% 250ML 250 ML IV SCH (21:17)
[2020-01-17 21:41] LABS: ABG Base Excess -1.2 mmol/L (-2.0-3.0); ABG HCO3 22.6 mmol/L (20.0-26.0); ABG Methemoglobin 0.4 % (0.0-1.5); ABG Oxygen Saturation 99.2 % (95.0-99.0); ABG PCO2 34.8 mm Hg; ABG PH 7.431 pH Units (7.350-7.450); ABG PO2 179.6 mm Hg (80.0-90.0)
[2020-01-17 22:48] LABS: Myeloperoxidase Antibody <1.0 AI (<1.0)
[2020-01-18] MEDS: fentaNYL DRIP Premix 2,000 MCG/100 ML BAG IV SCH ×5 (01:09→23:01)
[2020-01-18] MEDS: ATROPINE 0.1% (1 MG/10 ML) CARDIAC SYRINGE IV PRN ×3 (02:48→12:19)
[2020-01-18 03:59] LABS: Albumin 2.8 g/dL (3.8-4.8); Gamma Globulin 0.8 g/dL (0.8-1.7)
[2020-01-18 04:08] LABS: ABG HCO3 23.7 mmol/L (20.0-26.0); ABG Methemoglobin 0.5 % (0.0-1.5); ABG PCO2 39.4 mm Hg; ABG PH 7.397 pH Units (7.350-7.450); ABG PO2 162.6 mm Hg (80.0-90.0)
[2020-01-18] MEDS: INSULIN LISPRO 100 UNIT/ML VIAL 3 mL SUB-Q SCH ×3 (05:40→17:44)
[2020-01-18 06:01] LABS: BUN/Creatinine Ratio 44; Blood Urea Nitrogen 44 mg/dL (7-17); Calcium 8.7 mg/dL (8.4-10.2); Hemolysis Index 5
--- NOTE | 2020-01-18 08:31 | Progress Note ---
Assessment and Plan Sinus bradycardia likely likely secondary to IV dexamethasone. We have been noticing increased evidence of bradycardia" with patient receiving dexamethasone Hemodynamically stable no further cardiac work-up TSH 0.221 COVID -19 viral pneumonia Respiratory failure Diabetes Conservative cardiac management. Subjective Date of service: 01/18/20 Principal diagnosis: Ac. hypoxemic resp failure; COVID infection; PNA; ARACELI; Thrombocytopenia Interval history: Continues to be bradycardic but asymptomatic Objective Vital Signs Temp Pulse Pulse Resp BP Pulse Ox 01/18/20 08:12 45 L 140/77 100 01/18/20 07:00 54 L 20 133/75 100 01/18/20 06:45 55 L 20 146/81 01/18/20 06:31 60 20 150/82 01/18/20 06:15 64 19 172/89 01/18/20 06:00 67 20 182/95 01/18/20 05:45 71 19 174/93 01/18/20 05:31 75 19 190/99 100 01/18/20 05:15 49 L 20 125/69 01/18/20 05:01 44 L 20 135/71 01/18/20 04:45 47 L 20 132/74 01/18/20 04:30 48 L 20 138/75 100 01/18/20 04:15 52 L 19 135/73 01/18/20 04:09 52 L 136/75 01/18/20 04:00 54 L 45 L 19 136/75 01/18/20 03:45 61 19 124/65 01/18/20 03:30 69 20 122/68 01/18/20 03:25 98.9 F 01/18/20 03:15 71 20 132/76 100 01/18/20 03:01 75 20 166/88 01/18/20 02:45 40 L 19 120/65 01/18/20 02:31 40 L 20 122/64 01/18/20 02:15 40 L 20 132/73 01/18/20 02:00 40 L 50 L 20 120/65 01/18/20 01:45 44 L 19 111/59 01/18/20 01:30 40 L 20 128/69 01/18/20 01:15 44 L 20 114/62 01/18/20 01:00 41 L 19 127/70 100 01/18/20 00:45 46 L 19 127/70 100 01/18/20 00:30 47 L 19 121/68 100 01/18/20 00:15 55 L 20 112/58 100 01/18/20 00:00 68 70 20 114/63 100 01/17/20 23:59 67 118/66 100 01/17/20 23:45 70 19 118/66 100 01/17/20 23:30 68 19 120/74 100 01/17/20 23:15 84 20 120/74 99 01/17/20 23:00 74 20 131/77 100 01/17/20 22:45 98.8 F 41 L 20 118/63 100 01/17/20 22:30 40 L 19 113/60 100 01/17/20 22:15 44 L 19 105/54 01/17/20 22:00 43 L 19 108/55 01/17/20 21:45 43 L 20 108/52 01/17/20 21:30 47 L 17 103/54 01/17/20 21:15 51 L 20 105/59 01/17/20 21:00 52 L 19 128/86 01/17/20 20:45 76 20 128/86 01/17/20 20:30 117 H 15 124/98 01/17/20 20:27 80 124/98 100 01/17/20 20:15 68 20 138/80 01/17/20 20:10 79 20 133/81 100 01/17/20 20:00 72 70 20 133/81 01/17/20 19:45 62 19 137/84 01/17/20 19:42 98 F 01/17/20 19:30 69 20 139/81 100 01/17/20 19:15 67 20 135/81 100 01/17/20 19:00 64 20 128/72 100 01/17/20 18:45 56 L 20 125/72 100 01/17/20 18:30 51 L 20 130/75 100 01/17/20 18:16 45 L 20 116/61 100 01/17/20 18:00 46 L 20 104/54 100 01/17/20 17:45 52 L 20 101/48 100 01/17/20 17:30 52 L 20 107/57 100 01/17/20 17:15 47 L 20 106/58 100 01/17/20 17:14 52 L 106/58 100 01/17/20 17:00 49 L 20 111/58 100 01/17/20 16:45 58 L 19 114/61 100 01/17/20 16:30 51 L 20 123/71 100 01/17/20 16:15 55 L 20 128/79 100 01/17/20 16:00 97.8 F 55 L 58 L 20 137/87 100 01/17/20 15:45 58 L 20 142/88 100 01/17/20 15:30 64 19 141/89 01/17/20 15:15 68 20 142/92 100 01/17/20 15:00 72 20 152/98 100 01/17/20 14:46 75 20 170/98 100 01/17/20 14:30 40 L 20 120/68 100 01/17/20 14:15 40 L 20 122/73 100 01/17/20 14:00 40 L 20 117/69 100 01/17/20 13:45 41 L 17 115/68 01/17/20 13:30 45 L 10 L 106/56 100 01/17/20 13:15 76 30 H 111/65 01/17/20 13:00 68 30 H 121/66 01/17/20 12:46 56 L 29 H 142/85 01/17/20 12:30 44 L 30 H 173/92 01/17/20 12:15 42 L 30 H 152/92 100 01/17/20 12:00 97.9 F 41 L 45 L 30 H 151/85 01/17/20 11:45 41 L 30 H 151/85 01/17/20 11:30 42 L 30 H 147/84 100 01/17/20 11:16 45 L 29 H 164/86 100 01/17/20 11:15 43 L 164/86 100 01/17/20 11:00 40 L 30 H 138/78 100 01/17/20 10:46 41 L 30 H 138/78 100 01/17/20 10:30 39 L 30 H 132/76 100 01/17/20 10:15 40 L 30 H 132/76 100 01/17/20 10:00 44 L 30 H 122/70 100 01/17/20 09:46 45 L 30 H 128/68 100 01/17/20 09:30 42 L 30 H 141/78 100 01/17/20 09:16 44 L 30 H 138/73 100 01/17/20 09:00 42 L 30 H 153/81 100 01/17/20 08:46 42 L 30 H 155/83 100 01/17/20 08:30 44 L 30 H 152/81 100 Please note that patient was not directly examined by me. This was done as patient is COVID , and to minimize the use of PPIs and reduce exposure. Physical examination obtained from chart. General: No Apparent Distress HEENT: NAD Neck: neck supple Cardiac: S1-S2 heard faint 2/6 systolic murmur Lungs: Normal basilar breath sounds heard Neuro: Grossly Intact Abdomen: Soft Extremities: No edema noted - Labs and Meds Cardiac Enzymes 01/17/20 Range/Units 13:40 Lactate Dehydrogenase 587 H (91-180) units/L Lipids 01/18/20 Range/Units 05:00 Triglycerides 198 H (2-149) mg/dL Comprehensive Metabolic Panel 01/14/20 01/18/20 Range/Units Unknown 04:00 Sodium 150 H (137-145) mmol/L Potassium 4.2 (3.6-5.0) mmol/L Chloride 113.4 H (98-107) mmol/L Carbon Dioxide 24 (22-30) mmol/L BUN 44 H (7-17) mg/dL Creatinine 1.0 (0.6-1.2) mg/dL Glucose 268 H (65-100) mg/dL Calcium 8.7 (8.4-10.2) mg/dL Albumin 2.8 L (3.8-4.8) g/dL - Allied health notes Allied health notes reviewed: RT
--- NOTE | 2020-01-18 08:49 | Progress Note ---
Assessment and Plan Assessment and plan: Acute hypoxic respiratory failure. Etiology likely secondary to COVID-19 infection. Patient remains on mechanical ventilation. Pulmonary following. COVID-19 pneumonia. Patient was initially diagnosed 8 days prior to admission. Patient has high d-dimer and inflammatory markers. ID following. Continue dexamethasone 6 mg IV for completion of 10 days. Treated with remdesivir for 4 days and stopped on 01/17/2020 per ID recommendation because of bradycardia. Continue to trend inflammatory markers. Full dose anticoagulation given the high d-dimer. Sepsis. Etiology secondary to above. Continue IV antibiotics of ceftriaxone and azithromycin. Morbid obesity. Severe bradycardia this morning 01/15/2020; was in the 30's and was given atropine, and cardiology consulted. Elevated LFTs/transaminitis. Etiology likely secondary to sepsis/COVID-19 Acute kidney injury. Etiology secondary to sepsis/ATN. Nephrology consultation Hyperkalemia. Etiology likely secondary to above. Kayexalate x1. 01/16/2020; patient is still on mechanical ventilation FiO2 40, PEEP 14, patient is on fentanyl, Versed, propofol. Patient proned. We will continue to monitor. Patient is off IV antibiotics. Treated for 5 days with IV ceftriaxone. ID, nephrology and pulmonary consult appreciated 01/17/2020; patient is still on mechanical ventilation FiO2 40, PEEP 14, patient is on fentanyl, Versed, propofol. Patient proned. We will continue to monitor. Patient is off IV antibiotics. Treated for 5 days with IV ceftriaxone. ID, nephrology and pulmonary consult appreciated. Patient has elevated sodium level and advised to increase free water intake through the NG tube feeding. 01/18/2020; patient is still on mechanical ventilation with FiO2 of 40 and PEEP of 14 patient is on fentanyl and Versed for sedation. Patient is on dexamethasone day 7 and probably severe was stopped yesterday after fourth dose per ID recommendation, patient is bradycardic. Cardiology was consulted and recommend to follow her closely. If heart rates below 40 we want to give her atropine. I discussed the management plan with her father Mr. Baxter in detail at [phone]. Mr. Baxter said his daughter was suffering from asthma and bipolar disorder. The high probability of a clinically significant, sudden or life threatening deterioration of the [respiratory and immunologic] system(s) required my full and direct attention, intervention and personal management. The aggregate critical care time was [33] minutes. This time is in addition to time spent performing reported procedures but includes the following: [x] Data Review and interpretation [x] Patient assessment and monitoring of vital signs [x] Documentation [x] Medication orders and management History Interval history: Patient was seen and evaluated during morning rounds Patient was intubated and sedated, PEEP 14, FiO2 40 Patient is on fentanyl Versed and propofol Patient had bradycardia-cardiology saw the patient and no further work-up is due to dexamethasone Hospitalist Physical - Physical exam Narrative exam: Patient is intubated and on mechanical ventilation The patient is obese. Vital signs as documented. Head exam is unremarkable. No scleral icterus . Neck is without jugular venous distension, thyromegaly, or carotid bruits. On mechanical ventilation Cardiac exam reveals regular rate and Rhythm. Abdominal exam reveals normal bowel sounds, nontender, no organomegaly. Extremities are nonedematous and both femoral and pedal pulses are normal. [employer]OR: Sedated. - Constitutional Vitals: Temp Pulse Resp BP Pulse Ox 97.7 F 45 L 20 140/77 100 01/18/20 08:00 01/18/20 08:12 01/18/20 07:00 01/18/20 08:12 01/18/20 08:12 General appearance: Present: obese, other (orally intubation-sedated) Results - Labs CBC & Chem 7: 01/17/20 06:00 01/18/20 04:00 Labs: Laboratory Last Values WBC 11.5 K/mm3 (4.5-11.0) H 01/17/20 06:00 RBC 4.97 M/mm3 (3.65-5.03) 01/17/20 06:00 Hgb 12.2 gm/dl (10.1-14.3) 01/17/20 06:00 Hct 37.3 % (30.3-42.9) 01/17/20 06:00 MCV 75 fl (79-97) L 01/17/20 06:00 MCH 25 pg (28-32) L 01/17/20 06:00 MCHC 33 % (30-34) 01/17/20 06:00 RDW 15.5 % (13.2-15.2) H 01/17/20 06:00 Plt Count 327 K/mm3 (140-440) 01/17/20 06:00 Lymph % (Auto) 8.6 % (13.4-35.0) L 01/15/20 03:57 [place] % (Auto) 7.0 % (0.0-7.3) 01/15/20 03:57 Eos % (Auto) 0.0 % (0.0-4.3) 01/15/20 03:57 Baso % (Auto) 0.2 % (0.0-1.8) 01/15/20 03:57 Lymph # 1.3 K/mm3 (1.2-5.4) 01/15/20 03:57 [place] # 1.0 K/mm3 (0.0-0.8) H 01/15/20 03:57 Eos # 0.0 K/mm3 (0.0-0.4) 01/15/20 03:57 Baso # 0.0 K/mm3 (0.0-0.1) 01/15/20 03:57 Seg Neutrophils % 84.2 % (40.0-70.0) H 01/15/20 03:57 Add Manual Diff Complete 01/17/20 06:00 Total Counted 100 01/17/20 06:00 Seg Neutrophils # 12.5 K/mm3 (1.8-7.7) H 01/15/20 03:57 Seg Neuts % (Manual) 81.0 % (40.0-70.0) H 01/17/20 06:00 Band Neutrophils % 0 % 01/17/20 06:00 Lymphocytes % (Manual) 10.0 % (13.4-35.0) L 01/17/20 06:00 Reactive Lymphs % (Man) 0 % 01/17/20 06:00 Monocytes % (Manual) 2.0 % (0.0-7.3) 01/17/20 06:00 Eosinophils % (Manual) 0 % (0.0-4.3) 01/17/20 06:00 Basophils % (Manual) 0 % (0.0-1.8) 01/17/20 06:00 Metamyelocytes % 6.0 % 01/17/20 06:00 Myelocytes % 1.0 % 01/17/20 06:00 Promyelocytes % 0 % 01/17/20 06:00 Blast Cells % 0 % 01/17/20 06:00 Nucleated RBC % Not Reportable 01/17/20 06:00 Seg Neutrophils # Man 9.3 K/mm3 (1.8-7.7) H 01/17/20 06:00 Band Neutrophils # 0.0 K/mm3 01/17/20 06:00 Lymphocytes # (Manual) 1.2 K/mm3 (1.2-5.4) 01/17/20 06:00 Abs React Lymphs (Man) 0.0 K/mm3 01/17/20 06:00 Monocytes # (Manual) 0.2 K/mm3 (0.0-0.8) 01/17/20 06:00 Eosinophils # (Manual) 0.0 K/mm3 (0.0-0.4) 01/17/20 06:00 Basophils # (Manual) 0.0 K/mm3 (0.0-0.1) 01/17/20 06:00 Metamyelocytes # 0.7 K/mm3 01/17/20 06:00 Myelocytes # 0.1 K/mm3 01/17/20 06:00 Promyelocytes # 0.0 K/mm3 01/17/20 06:00 Blast Cells # 0.0 K/mm3 01/17/20 06:00 WBC Morphology Not Reportable 01/17/20 06:00 Hypersegmented Neuts Not Reportable 01/17/20 06:00 Hyposegmented Neuts Not Reportable 01/17/20 06:00 Hypogranular Neuts Not Reportable 01/17/20 06:00 Smudge Cells Not Reportable 01/17/20 06:00 Toxic Granulation Not Reportable 01/17/20 06:00 Toxic Vacuolation Not Reportable 01/17/20 06:00 Dohle Bodies Not Reportable 01/17/20 06:00 Pelger-Huet Anomaly Not Reportable 01/17/20 06:00 Shanti Rods Not Reportable 01/17/20 06:00 Platelet Estimate Consistent w auto 01/17/20 06:00 Clumped Platelets Not Reportable 01/17/20 06:00 Plt Clumps, EDTA Not Reportable 01/17/20 06:00 Large Platelets Not Reportable 01/17/20 06:00 Giant Platelets Not Reportable 01/17/20 06:00 Platelet Satelliting Not Reportable 01/17/20 06:00 Plt Morphology Comment Not Reportable 01/17/20 06:00 RBC Morphology Not Reportable 01/17/20 06:00 Dimorphic RBCs Not Reportable 01/17/20 06:00 Polychromasia Not Reportable 01/17/20 06:00 Hypochromasia 1+ 01/17/20 06:00 Poikilocytosis Not Reportable 01/17/20 06:00 Anisocytosis Few 01/17/20 06:00 Microcytosis Not Reportable 01/17/20 06:00 Macrocytosis Not Reportable 01/17/20 06:00 Spherocytes Not Reportable 01/17/20 06:00 Pappenheimer Bodies Not Reportable 01/17/20 06:00 Sickle Cells Not Reportable 01/17/20 06:00 Target Cells Not Reportable 01/17/20 06:00 Tear Drop Cells Few 01/17/20 06:00 Ovalocytes Not Reportable 01/17/20 06:00 Helmet Cells Not Reportable 01/17/20 06:00 [place] Bodies Not Reportable 01/17/20 06:00 [place] Rings Not Reportable 01/17/20 06:00 [place] Cells Not Reportable 01/17/20 06:00 Bite Cells Not Reportable 01/17/20 06:00 Crenated Cell Not Reportable 01/17/20 06:00 Elliptocytes Not Reportable 01/17/20 06:00 Acanthocytes (Spur) Not Reportable 01/17/20 06:00 Rouleaux Not Reportable 01/17/20 06:00 Hemoglobin C Crystals Not Reportable 01/17/20 06:00 Schistocytes Not Reportable 01/17/20 06:00 Malaria parasites Not Reportable 01/17/20 06:00 [place] Bodies Not Reportable 01/17/20 06:00 Hem Pathologist Commnt No 01/17/20 06:00 D-Dimer 1878.79 ng/mlDDU (0-234) H 01/17/20 13:40 ABG pH 7.397 pH Units (7.350-7.450) 01/18/20 03:40 POC ABG pCO2 33.9 mmHg (32.0-48.0) 01/16/20 03:33 ABG pCO2 39.4 mm Hg 01/18/20 03:40 ABG Oxyhemoglobin 86.5 (94-98) L 01/13/20 04:45 POC ABG pO2 86.3 mmHg (83-108) 01/16/20 03:33 ABG pO2 162.6 mm Hg (80.0-90.0) H 01/18/20 03:40 POC ABG HCO3 24.5 01/16/20 03:33 ABG HCO3 23.7 mmol/L (20.0-26.0) 01/18/20 03:40 ABG O2 Saturation 99.0 % (95.0-99.0) 01/18/20 03:40 ABG O2 Content 16.7 (0.0-44) 01/18/20 03:40 POC ABG Base Excess 1.4 01/16/20 03:33 ABG Base Excess -1.0 mmol/L (-2.0-3.0) 01/18/20 03:40 ABG Hemoglobin 12.0 gm/dl (12.0-16.0) 01/18/20 03:40 ABG Carboxyhemoglobin 1.4 % (0.0-5.0) 01/18/20 03:40 ABG Methemoglobin 0.5 % (0.0-1.5) 01/18/20 03:40 Carboxyhemoglobin 0.9 (0.5-1.5) 01/13/20 04:45 Oxyhemoglobin 97.2 % (95.0-99.0) 01/18/20 03:40 FiO2 40 % 01/18/20 03:40 Sodium 150 mmol/L (137-145) H 01/18/20 04:00 Potassium 4.2 mmol/L (3.6-5.0) 01/18/20 04:00 Chloride 113.4 mmol/L (98-107) H 01/18/20 04:00 Carbon Dioxide 24 mmol/L (22-30) 01/18/20 04:00 Anion Gap 17 mmol/L 01/18/20 04:00 BUN 44 mg/dL (7-17) H 01/18/20 04:00 Creatinine 1.0 mg/dL (0.6-1.2) 01/18/20 04:00 Estimated GFR > 60 ml/min 01/18/20 04:00 BUN/Creatinine Ratio 44 % 01/18/20 04:00 Glucose 268 mg/dL (65-100) H 01/18/20 04:00 POC Glucose 271 (70-105) H 01/18/20 05:54 Lactic Acid 1.40 mmol/L (0.7-2.0) 01/12/20 07:07 Calcium 8.7 mg/dL (8.4-10.2) 01/18/20 04:00 Total Bilirubin 0.20 mg/dL (0.1-1.2) 01/14/20 09:47 AST 40 units/L (5-40) 01/14/20 09:47 ALT 32 units/L (7-56) 01/14/20 09:47 Alkaline Phosphatase 98 units/L (35-129) 01/14/20 09:47 Magnesium 3.00 mg/dL (1.7-2.3) H 01/15/20 14:35 Ferritin 322.8 ng/mL (10.0-200.0) H 01/17/20 13:40 Total Protein 6.0 g/dL (6.3-8.2) L 01/14/20 09:47 Albumin/Globulin Ratio 0.8 % 01/14/20 09:47 Lactate Dehydrogenase 587 units/L (91-180) H 01/17/20 13:40 C-Reactive Protein 4.60 mg/dL (0.00-1.30) H 01/17/20 13:40 Serum Total Protein 6.2 g/dL (6.1-8.1) 01/14/20 Unknown Albumin 2.8 g/dL (3.8-4.8) L 01/14/20 Unknown Lglna-7-Yksimyasu 0.6 g/dL (0.2-0.3) H 01/14/20 Unknown Hqnoe-8-Itjgutwqh 1.1 g/dL (0.5-0.9) H 01/14/20 Unknown Beta Globulins 0.4 g/dL (0.2-0.5) 01/14/20 Unknown Gamma Globulins 0.8 g/dL (0.8-1.7) 01/14/20 Unknown Abnorm Protein Band 1 see below 01/14/20 Unknown PEP Interpretation see below H 01/14/20 Unknown Triglycerides 198 mg/dL (2-149) H 01/18/20 05:00 Procalcitonin 0.33 ng/mL (<0.15) 01/11/20 17:22 TSH 0.221 mlU/mL (0.270-4.200) L 01/15/20 14:35 Free T4 1.23 ng/dL (0.76-1.46) 01/15/20 14:35 Urine Color Yellow (Yellow) 01/11/20 21:50 Urine Turbidity Clear (Clear) 01/11/20 21:50 Urine pH 6.0 (5.0-7.0) 01/11/20 21:50 Ur Specific [place] 1.030 (1.003-1.030) 01/11/20 21:50 Urine Protein >500 mg/dL (Negative) 01/11/20 21:50 Urine Glucose (UA) >=500 mg/dL (Negative) 01/11/20 21:50 Urine Ketones 20 mg/dL (Negative) 01/11/20 21:50 Urine Blood Mod (Negative) 01/11/20 21:50 Urine Nitrite Neg (Negative) 01/11/20 21:50 Urine Bilirubin Neg (Negative) 01/11/20 21:50 Urine Urobilinogen < 2.0 mg/dL (<2.0) 01/11/20 21:50 Ur Leukocyte Esterase Neg (Negative) 01/11/20 21:50 Urine WBC (Auto) 3.0 /HPF (0.0-6.0) 01/11/20 21:50 Urine RBC (Auto) 1.0 /HPF (0.0-6.0) 01/11/20 21:50 U Epithel Cells (Auto) < 1.0 /HPF (0-13.0) 01/11/20 21:50 Urine Bacteria (Auto) 1+ /HPF (Negative) 01/11/20 21:50 Proteinase 3 (PR3) Ab <1.0 AI (<1.0) 01/14/20 Unknown Myeloperoxidase Ab <1.0 AI (<1.0) 01/14/20 Unknown Complement C3 172 mg/dL (83-193) 01/14/20 Unknown Complement C4 76 mg/dL (15-57) H 01/14/20 Unknown Coronavirus (PCR) Positive (Negative) A 01/12/20 09:00 Blood Type B POSITIVE 01/11/20 19:18 Antibody Screen Negative 01/11/20 19:18 De Oliveira/IV: Voiding Method Indwelling Catheter IV Catheter Type [Right Upper PICC Line arm] IV Catheter Type [Right Hand] INT / Saline Lock IV Catheter Type [Left Forearm Peripheral IV ] IV Catheter Type [Right Peripheral IV Antecubital] Active Medications - Current Medications Current Medications: Generic Name Dose Route Start Last Admin Trade Name Freq PRN Reason Stop Dose Admin Acetaminophen 650 mg 01/11/20 18:55 Tylenol PO Q4H PRN Pain MILD(1-3)/Fever >100.5/CORDOVA Lipase/Protease/Amylase 1 each 01/14/20 11:00 Pancreaze 10,500 Unit FEEDTUBE PRN PRN For Clogged Feeding Tube Atropine Sulfate 1 mg 01/15/20 12:00 01/18/20 05:24 Atropine 0.1% (Cardiac) IV 1 mg ONCE PRN Administration HR < 40 Dexamethasone 6 mg 01/13/20 12:00 01/17/20 09:29 Decadron IV 01/22/20 10:01 6 mg Q24HR ASHISH Administration Enoxaparin Sodium 120 mg 01/13/20 12:00 01/17/20 21:20 Enoxaparin SUB-Q 120 mg Q12HR ASHISH Administration Famotidine 20 mg 01/13/20 10:00 01/17/20 21:14 Pepcid IV 20 mg BID ASHISH Administration Fentanyl 50 mcg 01/13/20 01:52 01/13/20 02:15 Sublimaze IV 50 mcg Q10MIN PRN Administration ANALGESIA Hydromorphone HCl 0.25 mg 01/11/20 18:59 01/12/20 21:36 Dilaudid IV 0.25 mg Q4H PRN Administration Pain, Moderate (4-6) Hydrophilic Ointment 1 applic 01/13/20 01:52 Vaseline Lip Therapy TP Q2HR PRN Dry Lips Fentanyl Citrate 2,000 mcg in 100 mls @ 5.69 mls/hr 01/13/20 02:00 01/18/20 05:34 Fentanyl Drip Premix IV 4 mcg/kg/hr TITR ASHISH 22.76 mls/hr Administration Protocol 1 MCG/KG/HR Midazolam HCl 100 mg/ Sodium 100 mls @ 2 mls/hr 01/13/20 02:00 01/17/20 18:40 Chloride IV 5 mg/hr TITR ASHISH 5 mls/hr Administration Protocol 2 MG/HR Propofol 1,000 mg in 100 mls @ 3.414 mls/hr 01/14/20 23:21 01/18/20 05:20 Diprivan 10 Mg/Ml IV 25 mcg/kg/min TITR ASHISH 17.07 mls/hr Administration Protocol 5 MCG/KG/MIN Dopamine HCl/Dextrose 800 mg in 250 mls @ 4.425 mls/hr 01/17/20 19:00 Intropin Drip 800 Mg/D5w 250 Ml IV TITR ASHISH Protocol 2 MCG/KG/MIN Insulin Glargine 10 units 01/16/20 10:00 01/17/20 09:30 Lantus SUB-Q 10 units DAILY ASHISH Administration Insulin Human Lispro 0 unit 01/13/20 11:00 01/18/20 05:40 Humalog SUB-Q 6 unit Q6H ASHISH Administration Protocol Midazolam HCl 2 mg 01/13/20 01:52 Versed IV Q10MIN PRN Sedation Multi-Ingred Cream/Lotion/Oil/Oint 1 applic 01/13/20 01:52 Artificial Tears Ophth Oint OU Q4HR PRN Dry Eye(s) Ondansetron HCl 4 mg 01/11/20 18:55 Zofran IV Q8H PRN Nausea And Vomiting Simple Syrup 15 ml 01/14/20 11:00 Simple Syrup FEEDTUBE PRN PRN Hypoglycemia Simple Syrup 30 ml 01/14/20 11:00 Simple Syrup FEEDTUBE PRN PRN Hypoglycemia Sodium Bicarbonate 325 mg 01/14/20 11:00 Sodium Bicarbonate FEEDTUBE PRN PRN For Clogged Feeding Tube Sodium Chloride 10 ml 01/11/20 22:00 01/18/20 05:39 Sodium Chloride Flush Syringe 10 Ml IV 10 ml BID ASHISH Administration Sodium Chloride 10 ml 01/11/20 18:55 Sodium Chloride Flush Syringe 10 Ml IV PRN PRN LINE FLUSH Nutrition/Malnutrition Assess - Dietary Evaluation Nutrition/Malnutrition Findings: Nutrition Notes Start: 01/13/20 08:58 Freq: Status: Active Protocol: Document 01/16/20 14:32 [email or web address] (Rec: 01/16/20 14:44 [email or web address]) Co-Sign 01/16/20 14:32 LP Nutrition Notes Initial or Follow up Reassessment Other Pertinent Diagnosis Pneu, COVID-19 (+) Current Diet Nepro at 10ml/hr Labs/Tests Na 151 BUN 45 BG 213 Pertinent Medications Propofol Humalog Height 4 ft 11 in Weight 118 kg [place] Body Weight (kg) 43.18 BMI 52.5 Weight Status Morbidly Obese Subjective/Other Information F/U TF tolerance. NGT got pulled out, NGT being replaced . Pt has two more days of proning. Burn Absent Trauma Absent GI Symptoms None Current % PO Negligible Minimum of two criteria No physical signs of malnutrition #1 Nutrition Diagnosis Inadequate oral intake Diagnosis Progress(for reassessment Continues documentation) Is patient on ventilator? Yes Is Patient Ambulatory and/or Out of Bed No REE-([facility]-confined to bed) 2126.892 Kcal/Kg value to use for calculation 13 Approximate Energy Requirements Using 1534 kcal/Kg Calculation Used for Recommendations Kcal/kg Additional Notes Protein needs are up to 108g ( up to 2.5g/kg) Fluid needs are 1ml/kcal Nutrition Intervention Change Diet Order: TF Nutrition Support: if proned for 12 hrs run TF at 10ml, flush 50 q4h. Remaining 12hrs run TF at 70ml/hr. Flush 290ml q4h Kcal 1,728 Protein (gm) 78 Fluid (mL) 698 Goal #1 TF tolerance Anticipated Discharge Needs: Unable to determine at this time Follow-Up By: 01/18/20 Additional Comments T/F TF tolerance
--- NOTE | 2020-01-18 09:04 | Progress Note ---
Assessment and Plan Cultures: Blood culture 01/11/2020 no growth today Urine culture 01/11/2020 10-100,000 normal skin cristina Tracheal aspirate a 01/13/2020 no growth A/P: 39-year-old female past medical history morbid obesity, diabetes admitted with severe COVID-19 pneumonia. #Sepsis: Fever resolved, leukocytosis up likely due to steroids, now better. #Acute hypoxemic respiratory failure: Likely secondary to COVID-19 infection. remains mechanically ventilated #COVID-19 pneumonia: Very high ddimer. Elevated markers, ferritin went up, CRP down. Completed ceftriaxone. Completed remdesivir. Markers are slowly improving. Ddimer improving. #Morbid obesity: BMI=52. Associated with worse COVID-19 outcomes #Transaminitis: Likely related to COVID-19. Improving. #Bacteriuria, urine analysis not consistent with UTI #ARACELI: Resolved #Bradycardia: Per cardiology. Likely drug induced,there are some cases of bradycardia associated with Remdesivir. Close monitoring and I asked PharmD to report this to [facility]. Recs: -Monitor bradycardia off Remdesivir -Continue dexamethasone 6 mg IV/PO daily to complete 10 days -day 6 of 10 -Obtain daily inflammatory markers - ferritin, Ddimer, CRP, LDH in 48h -Anticoagulation per [facility] protocol - agree with full dose anticoagulation-ddimer>10,000 I am covering the weekend, Dr. Song is rounding on Tuesday. Jenifer Robertson MD [facility] ([facility]) Office [phone] Subjective Date of service: 01/18/20 Principal diagnosis: Ac. hypoxemic resp failure; COVID infection; PNA; ARACELI; Thrombocytopenia Interval history: Remains on the ventilator, bradycardic on monitor no fever, currently proned Objective - Exam Narrative Exam: Physical Exam: reviewed ED and hospitalist notes, limited due to conservation of PPE/ currently proned General appearance: limited due to conservation of PPE Eyes: limited due to conservation of PPE HENT: Atraumatic; limited due to conservation of PPE Lungs: limited due to conservation of PPE CV: limited due to conservation of PPE Abdomen: limited due to conservation of PPE Extremities: limited due to conservation of PPE Skin: limited due to conservation of PPE Psych: limited due to conservation of PPE Neuro: limited due to conservation of PPE - Constitutional Vitals: Vital Signs Temp Pulse Resp BP Pulse Ox 97.7 F 43 L 19 122/67 100 01/18/20 08:00 01/18/20 09:00 01/18/20 09:00 01/18/20 09:00 01/18/20 09:00 Temperature -Last 24 Hours Temperature 97.7 F Temperature 98.9 F Temperature 98.8 F Temperature 98 F Temperature 97.8 F Temperature 97.9 F - Labs CBC & Chem 7: 01/17/20 06:00 01/18/20 04:00 Labs: Abnormal lab results 01/14/20 01/14/20 01/17/20 Range/Units Unknown Unknown 11:32 D-Dimer (0-234) ng/mlDDU ABG pO2 (80.0-90.0) mm Hg ABG O2 Saturation (95.0-99.0) % ABG Hemoglobin (12.0-16.0) gm/dl Sodium (137-145) mmol/L Chloride (98-107) mmol/L BUN (7-17) mg/dL Glucose (65-100) mg/dL POC Glucose 229 H (70-105) Ferritin (10.0-200.0) ng/mL Lactate Dehydrogenase (91-180) units/L C-Reactive Protein (0.00-1.30) mg/dL Albumin 2.8 L (3.8-4.8) g/dL Ydfqg-6-Pzuihettr 0.6 H (0.2-0.3) g/dL Spqss-2-Wcdiuwlhn 1.1 H (0.5-0.9) g/dL PEP Interpretation see below H Triglycerides (2-149) mg/dL Complement C4 76 H (15-57) mg/dL 01/17/20 01/17/20 01/17/20 Range/Units 13:40 13:40 13:40 D-Dimer 1878.79 H (0-234) ng/mlDDU ABG pO2 (80.0-90.0) mm Hg ABG O2 Saturation (95.0-99.0) % ABG Hemoglobin (12.0-16.0) gm/dl Sodium (137-145) mmol/L Chloride (98-107) mmol/L BUN (7-17) mg/dL Glucose (65-100) mg/dL POC Glucose (70-105) Ferritin 322.8 H (10.0-200.0) ng/mL Lactate Dehydrogenase 587 H (91-180) units/L C-Reactive Protein 4.60 H (0.00-1.30) mg/dL Albumin (3.8-4.8) g/dL Hqllx-1-Qgcuckdkp (0.2-0.3) g/dL Zbieq-7-Yvyhomysr (0.5-0.9) g/dL PEP Interpretation Triglycerides (2-149) mg/dL Complement C4 (15-57) mg/dL 01/17/20 01/17/20 01/17/20 Range/Units 17:45 21:30 23:53 D-Dimer (0-234) ng/mlDDU ABG pO2 179.6 H (80.0-90.0) mm Hg ABG O2 Saturation 99.2 H (95.0-99.0) % ABG Hemoglobin 11.8 L (12.0-16.0) gm/dl Sodium (137-145) mmol/L Chloride (98-107) mmol/L BUN (7-17) mg/dL Glucose (65-100) mg/dL POC Glucose 364 H 272 H (70-105) Ferritin (10.0-200.0) ng/mL Lactate Dehydrogenase (91-180) units/L C-Reactive Protein (0.00-1.30) mg/dL Albumin (3.8-4.8) g/dL Jjuql-1-Phaiyuqas (0.2-0.3) g/dL Izzma-4-Btyhdrawd (0.5-0.9) g/dL PEP Interpretation Triglycerides (2-149) mg/dL Complement C4 (15-57) mg/dL 01/18/20 01/18/20 01/18/20 Range/Units 03:40 04:00 05:00 D-Dimer (0-234) ng/mlDDU ABG pO2 162.6 H (80.0-90.0) mm Hg ABG O2 Saturation (95.0-99.0) % ABG Hemoglobin (12.0-16.0) gm/dl Sodium 150 H (137-145) mmol/L Chloride 113.4 H (98-107) mmol/L BUN 44 H (7-17) mg/dL Glucose 268 H (65-100) mg/dL POC Glucose (70-105) Ferritin (10.0-200.0) ng/mL Lactate Dehydrogenase (91-180) units/L C-Reactive Protein (0.00-1.30) mg/dL Albumin (3.8-4.8) g/dL Vmccc-0-Gjggkscyy (0.2-0.3) g/dL Pzldh-9-Oybppnkgl (0.5-0.9) g/dL PEP Interpretation Triglycerides 198 H (2-149) mg/dL Complement C4 (15-57) mg/dL 01/18/20 Range/Units 05:54 D-Dimer (0-234) ng/mlDDU ABG pO2 (80.0-90.0) mm Hg ABG O2 Saturation (95.0-99.0) % ABG Hemoglobin (12.0-16.0) gm/dl Sodium (137-145) mmol/L Chloride (98-107) mmol/L BUN (7-17) mg/dL Glucose (65-100) mg/dL POC Glucose 271 H (70-105) Ferritin (10.0-200.0) ng/mL Lactate Dehydrogenase (91-180) units/L C-Reactive Protein (0.00-1.30) mg/dL Albumin (3.8-4.8) g/dL Pscnm-0-Tznjcdthv (0.2-0.3) g/dL Grlvn-1-Nzsrslznz (0.5-0.9) g/dL PEP Interpretation Triglycerides (2-149) mg/dL Complement C4 (15-57) mg/dL
--- NOTE | 2020-01-18 09:17 | Progress Note ---
Assessment and Plan # Acute Kidney Injury: suspect tubular injury in setting of COVID-19, has improved with supportive measures. Does remain at higher risk of future ARACELI given bradycardia, overall criticall illness - strict Is/Os - avoid nephrotoxins - IVF prn - supportive care per primary, ICU - serologies, UP/C pending # Hypernatremia: due to free water deficit, stable at 151->150 now. Would continue free water with tube feeds as able (currently 180cc q4hrs) or start D5W if tolerated per pulmonary # Acute hypoxic respiratory failure, COVID-19+, Sepsis: appreciate ICU, ID recommendations # Bradycardia: appreciate cardiology input # Hyperkalemia: improved, following Subjective Date of service: 01/18/20 Principal diagnosis: Ac. hypoxemic resp failure; COVID infection; PNA; ARACELI; Thrombocytopenia Interval history: No acute events noted per chart review. Patient noted to be in prone positioning. On tube feeds, no IVF per nursing Objective - Exam Narrative Exam: Due to COVID-19 and need to conserve PPE, patient was seen through window and not directly examined. Reviewed examination of primary team. - Vital Signs Vital signs: Vital Signs - 12hr 01/17/20 01/17/20 01/17/20 21:30 21:45 22:00 Temperature Pulse Rate 47 L 43 L 43 L Pulse Rate [ From Monitor] Respiratory 17 20 19 Rate Blood Pressure 103/54 108/52 108/55 O2 Sat by Pulse 100 100 100 Oximetry 01/17/20 01/17/20 01/17/20 22:15 22:30 22:45 Temperature 98.8 F Pulse Rate 44 L 40 L 41 L Pulse Rate [ From Monitor] Respiratory 19 19 20 Rate Blood Pressure 105/54 113/60 118/63 O2 Sat by Pulse 100 100 100 Oximetry 01/17/20 01/17/20 01/17/20 23:00 23:15 23:30 Temperature Pulse Rate 74 84 68 Pulse Rate [ From Monitor] Respiratory 20 20 19 Rate Blood Pressure 131/77 120/74 120/74 O2 Sat by Pulse 100 99 100 Oximetry 01/17/20 01/17/20 01/18/20 23:45 23:59 00:00 Temperature Pulse Rate 70 67 68 Pulse Rate [ 70 From Monitor] Respiratory 19 20 Rate Blood Pressure 118/66 118/66 114/63 O2 Sat by Pulse 100 100 100 Oximetry 01/18/20 01/18/20 01/18/20 00:15 00:30 00:45 Temperature Pulse Rate 55 L 47 L 46 L Pulse Rate [ From Monitor] Respiratory 20 19 19 Rate Blood Pressure 112/58 121/68 127/70 O2 Sat by Pulse 100 100 100 Oximetry 01/18/20 01/18/20 01/18/20 01:00 01:15 01:30 Temperature Pulse Rate 41 L 44 L 40 L Pulse Rate [ From Monitor] Respiratory 19 20 20 Rate Blood Pressure 127/70 114/62 128/69 O2 Sat by Pulse 100 100 100 Oximetry 01/18/20 01/18/20 01/18/20 01:45 02:00 02:15 Temperature Pulse Rate 44 L 40 L 40 L Pulse Rate [ 50 L From Monitor] Respiratory 19 20 20 Rate Blood Pressure 111/59 120/65 132/73 O2 Sat by Pulse 100 100 100 Oximetry 01/18/20 01/18/20 01/18/20 02:31 02:45 03:01 Temperature Pulse Rate 40 L 40 L 75 Pulse Rate [ From Monitor] Respiratory 20 19 20 Rate Blood Pressure 122/64 120/65 166/88 O2 Sat by Pulse 100 100 100 Oximetry 01/18/20 01/18/20 01/18/20 03:15 03:25 03:30 Temperature 98.9 F Pulse Rate 71 69 Pulse Rate [ From Monitor] Respiratory 20 20 Rate Blood Pressure 132/76 122/68 O2 Sat by Pulse 100 100 Oximetry 01/18/20 01/18/20 01/18/20 03:45 04:00 04:09 Temperature Pulse Rate 61 54 L 52 L Pulse Rate [ 45 L From Monitor] Respiratory 19 19 Rate Blood Pressure 124/65 136/75 136/75 O2 Sat by Pulse 100 100 100 Oximetry 01/18/20 01/18/20 01/18/20 04:15 04:30 04:45 Temperature Pulse Rate 52 L 48 L 47 L Pulse Rate [ From Monitor] Respiratory 19 20 20 Rate Blood Pressure 135/73 138/75 132/74 O2 Sat by Pulse 100 100 100 Oximetry 01/18/20 01/18/20 01/18/20 05:01 05:15 05:31 Temperature Pulse Rate 44 L 49 L 75 Pulse Rate [ From Monitor] Respiratory 20 20 19 Rate Blood Pressure 135/71 125/69 190/99 O2 Sat by Pulse 100 100 100 Oximetry 01/18/20 01/18/20 01/18/20 05:45 06:00 06:15 Temperature Pulse Rate 71 67 64 Pulse Rate [ From Monitor] Respiratory 19 20 19 Rate Blood Pressure 174/93 182/95 172/89 O2 Sat by Pulse 100 100 100 Oximetry 01/18/20 01/18/20 01/18/20 06:31 06:45 07:00 Temperature Pulse Rate 60 55 L 54 L Pulse Rate [ From Monitor] Respiratory 20 20 20 Rate Blood Pressure 150/82 146/81 133/75 O2 Sat by Pulse 100 100 100 Oximetry 01/18/20 01/18/20 01/18/20 07:15 07:30 07:45 Temperature Pulse Rate 50 L 47 L 45 L Pulse Rate [ From Monitor] Respiratory 10 L 19 20 Rate Blood Pressure 137/72 131/73 136/75 O2 Sat by Pulse 100 100 100 Oximetry 01/18/20 01/18/20 01/18/20 08:00 08:12 08:15 Temperature 97.7 F Pulse Rate 45 L 45 L 45 L Pulse Rate [ 46 L From Monitor] Respiratory 20 17 Rate Blood Pressure 140/77 140/77 132/71 O2 Sat by Pulse 100 100 100 Oximetry 01/18/20 01/18/20 01/18/20 08:31 08:45 09:00 Temperature Pulse Rate 44 L 44 L 43 L Pulse Rate [ From Monitor] Respiratory 19 20 19 Rate Blood Pressure 123/68 120/68 122/67 O2 Sat by Pulse 100 100 100 Oximetry - Lab 01/17/20 06:00 01/18/20 04:00 Most recent lab results ABG pH 7.397 pH Units (7.350-7.450) 01/18/20 03:40 ABG pCO2 39.4 mm Hg 01/18/20 03:40 ABG pO2 162.6 mm Hg (80.0-90.0) H 01/18/20 03:40 ABG HCO3 23.7 mmol/L (20.0-26.0) 01/18/20 03:40 ABG O2 Saturation 99.0 % (95.0-99.0) 01/18/20 03:40 Calcium 8.7 mg/dL (8.4-10.2) 01/18/20 04:00 Magnesium 3.00 mg/dL (1.7-2.3) H 01/15/20 14:35 Medications & Allergies - Medications Allergies/Adverse Reactions: Allergies shellfish derived Allergy (Verified 01/11/20 18:37) Swelling Home Medications: Home Medications Medication Instructions Recorded Confirmed Last Taken Type glipiZIDE [Glipizide] 10 mg PO DAILY #30 tablet 08/15/18 01/13/20 Unknown Rx Active Medications: Generic Name Dose Route Start Last Admin Trade Name Freq PRN Reason Stop Dose Admin Acetaminophen 650 mg 01/11/20 18:55 Tylenol PO Q4H PRN Pain MILD(1-3)/Fever >100.5/CORDOVA Lipase/Protease/Amylase 1 each 01/14/20 11:[address] 10,500 Unit FEEDTUBE PRN PRN For Clogged Feeding Tube Atropine Sulfate 1 mg 01/15/20 12:00 01/18/20 05:24 Atropine 0.1% (Cardiac) IV 1 mg ONCE PRN Administration HR < 40 Dexamethasone 6 mg 01/13/20 12:00 01/17/20 09:29 Decadron IV 01/22/20 10:01 6 mg Q24HR ASHISH Administration Enoxaparin Sodium 120 mg 01/13/20 12:00 01/17/20 21:20 Enoxaparin SUB-Q 120 mg Q12HR ASHISH Administration Famotidine 20 mg 01/13/20 10:00 01/17/20 21:14 Pepcid IV 20 mg BID ASHISH Administration Fentanyl 50 mcg 01/13/20 01:52 01/13/20 02:15 Sublimaze IV 50 mcg Q10MIN PRN Administration ANALGESIA Hydromorphone HCl 0.25 mg 01/11/20 18:59 01/12/20 21:36 Dilaudid IV 0.25 mg Q4H PRN Administration Pain, Moderate (4-6) Hydrophilic Ointment 1 applic 01/13/20 01:52 Vaseline Lip Therapy TP Q2HR PRN Dry Lips Fentanyl Citrate 2,000 mcg in 100 mls @ 5.69 mls/hr 01/13/20 02:00 01/18/20 05:34 Fentanyl Drip Premix IV 4 mcg/kg/hr TITR ASHISH 22.76 mls/hr Administration Protocol 1 MCG/KG/HR Midazolam HCl 100 mg/ Sodium 100 mls @ 2 mls/hr 01/13/20 02:00 01/17/20 18:40 Chloride IV 5 mg/hr TITR ASHISH 5 mls/hr Administration Protocol 2 MG/HR Propofol 1,000 mg in 100 mls @ 3.414 mls/hr 01/14/20 23:21 01/18/20 05:20 Diprivan 10 Mg/Ml IV 25 mcg/kg/min TITR ASHISH 17.07 mls/hr Administration Protocol 5 MCG/KG/MIN Dopamine HCl/Dextrose 800 mg in 250 mls @ 4.425 mls/hr 01/17/20 19:00 Intropin Drip 800 Mg/D5w 250 Ml IV TITR ASHISH Protocol 2 MCG/KG/MIN Insulin Glargine 10 units 01/16/20 10:00 01/17/20 09:30 Lantus SUB-Q 10 units DAILY ASHISH Administration Insulin Human Lispro 0 unit 01/13/20 11:00 01/18/20 05:40 Humalog SUB-Q 6 unit Q6H ASHISH Administration Protocol Midazolam HCl 2 mg 01/13/20 01:52 Versed IV Q10MIN PRN Sedation Multi-Ingred Cream/Lotion/Oil/Oint 1 applic 01/13/20 01:52 Artificial Tears Ophth Oint OU Q4HR PRN Dry Eye(s) Ondansetron HCl 4 mg 01/11/20 18:55 Zofran IV Q8H PRN Nausea And Vomiting Simple Syrup 15 ml 01/14/20 11:00 Simple Syrup FEEDTUBE PRN PRN Hypoglycemia Simple Syrup 30 ml 01/14/20 11:00 Simple Syrup FEEDTUBE PRN PRN Hypoglycemia Sodium Bicarbonate 325 mg 01/14/20 11:00 Sodium Bicarbonate FEEDTUBE PRN PRN For Clogged Feeding Tube Sodium Chloride 10 ml 01/11/20 22:00 01/18/20 05:39 Sodium Chloride Flush Syringe 10 Ml IV 10 ml BID ASHISH Administration Sodium Chloride 10 ml 01/11/20 18:55 Sodium Chloride Flush Syringe 10 Ml IV PRN PRN LINE FLUSH
[2020-01-18] MEDS: MIDAZOLAM 100 MG in SODIUM CHLORIDE 0.9% 80 ML IV SCH (09:54)
[2020-01-18] MEDS: ENOXAPARIN 120 MG/0.8 ML INJ SUB-Q SCH ×2 (10:01→21:49)
[2020-01-18] MEDS: FAMOTIDINE 20 MG/2 ML INJ IV SCH ×2 (10:02→21:49)
[2020-01-18] MEDS: dexAMETHasone 4 MG/ML VIAL IV SCH (10:02)
[2020-01-18] MEDS: INSULIN GLARGINE 100 UNITS/ML SUB-Q SCH (10:02)
--- NOTE | 2020-01-18 13:05 | Progress Note ---
Assessment and Plan Acute hypoxemic respiratory failure orally intubated on [facility] Severe COVID infection Multifocal pneumonia Extreme obesity ARACELI- vasomotor nephropathy/COVID Thrombocytopenia Hyperglycemia Hypernatremia - prone again tonight X final session hopefully - reduced peep to 12 (RT to drop further to 10 in 6 hours) - begin weaning once peep </= 8 cm H2O - EKG reviewed, RN asked to wean off propofol as tolerated - further bradycardia management per cardiology - continue to avoid Qt prolonging drugs - continue care as below otherwise; - keep set rate at 20/min - continue Critical care proning per protocol (Prone this evening) - Stopped Propofol since she has had significant bradycardia and use Fentanyl/Midazolam for sedation - NGT/small bowel feeding tube, continue enteric nutrition at goal rate as tolerated - Free water flushes for hypernatremia, monitor closely - continue to avoid nephrotoxins, closely monitor renal function, renally dose all medications - Fluid conservative measures - VAP bundle addressed - CXR, ABG prn - Therapeutic anticoagulation with Lovenox - Permissive hypercapnia is acceptable - continue bronchodilators with pulmonary hygiene per RT - Monitor airway pressures, lung protective strategies - wean off benzodiazepines as soon as possible , reduce the possibility of delirium - prn analgesia per CPOT score - sedation prn for target RASS -2 to -3 - Continue to wean supplemental oxygen for target O2 sats > 92% - conservative fluid management measures as tolerated by hemodynamics and renal function - Bronchodilators with pulmonary hygiene per RT - Antibiotics for CAP , complete course. ID following - Accuchecks with glycemic control per SSI (While critically ill target blood glucose of 140-180 mg/dL; avoid hypoglycemia) - Maintenance of sleep-wake cycle, avoid delirium - Aspiration precautions, HOB >40 - Stress ulcer prophylaxis - Mobility protocol, off loading and skin assessment for pressure ulcer prevention - Monitor hemodynamics closely - Supportive transfusions as indicated to keep HgB >7g/dL COVID SPECIFIC INTERVENTIONS: - Airborne, contact isolation for COVID per facility protocols - IV steroids-dexamethasone - Trend d-dimer,and other inflammatory markers per facility protocol - Evaluate for Convalescent plasma therapy- patient is blood less medicine and will not accept COVID convalescent plasma - complete Remdesivir dosing - completed ceftriaxone 2 gm IV qday and azithromycin 500 mg PO qday for empiric CAP coverage - Monitor QTc Discussed with the ICU team-RT,RN Life threatening condition- COVID 19 ARDS acute hypoxemic respiratory failure on [facility] Mortality/Morbidity- High Complexity of medical decision making- High CONDITION: CRITICAL PROGNOSIS: GUARDED CODE STATUS: FULL CODE The high probability of a clinically significant, sudden or life-threatening deterioration of the [respiratory & neurology, renal ] system(s) required my full and direct attention, intervention and personal management. The aggregate critical care time was [33] minutes without overlap. Time includes spent on; [x] Data Review and interpretation [x] Patient assessment and monitoring of vital signs [x] Documentation [x] Medication orders and management Subjective Date of service: 01/18/20 Principal diagnosis: Ac. hypoxemic resp failure; COVID infection; PNA; ARACELI; Thrombocytopenia Interval history: Patient is seen today for: Acute hypoxemic respiratory failure; Severe COVID infection; Multifocal pneumonia; Extreme obesity; ARACELI; Thrombocytopenia Seen and examined at bedside; 24hour events reviewed; nursing and respiratory care staff consulted; no adverse overnight events reported to me; resting peacefully in bed; remains on MVS; sedated; tolerated overnight proning but one episode of bradyarrythmia; started on dopamine for hypotension and bradycardia; no emesis or overt aspiration Objective Vital Signs - 12hr 01/18/20 01/18/20 01/18/20 01:15 01:30 01:45 Temperature Pulse Rate 44 L 40 L 44 L Pulse Rate [ From Monitor] Respiratory 20 20 19 Rate Blood Pressure 114/62 128/69 111/59 O2 Sat by Pulse 100 100 100 Oximetry 01/18/20 01/18/20 01/18/20 02:00 02:15 02:31 Temperature Pulse Rate 40 L 40 L 40 L Pulse Rate [ 50 L From Monitor] Respiratory 20 20 20 Rate Blood Pressure 120/65 132/73 122/64 O2 Sat by Pulse 100 100 100 Oximetry 01/18/20 01/18/20 01/18/20 02:45 03:01 03:15 Temperature Pulse Rate 40 L 75 71 Pulse Rate [ From Monitor] Respiratory 19 20 20 Rate Blood Pressure 120/65 166/88 132/76 O2 Sat by Pulse 100 100 100 Oximetry 01/18/20 01/18/20 01/18/20 03:25 03:30 03:45 Temperature 98.9 F Pulse Rate 69 61 Pulse Rate [ From Monitor] Respiratory 20 19 Rate Blood Pressure 122/68 124/65 O2 Sat by Pulse 100 100 Oximetry 09/01/18/20 01/18/20 04:00 04:09 04:15 Temperature Pulse Rate 54 L 52 L 52 L Pulse Rate [ 45 L From Monitor] Respiratory 19 19 Rate Blood Pressure 136/75 136/75 135/73 O2 Sat by Pulse 100 100 100 Oximetry 01/18/20 01/18/20 01/18/20 04:30 04:45 05:01 Temperature Pulse Rate 48 L 47 L 44 L Pulse Rate [ From Monitor] Respiratory 20 20 20 Rate Blood Pressure 138/75 132/74 135/71 O2 Sat by Pulse 100 100 100 Oximetry 01/18/20 01/18/20 01/18/20 05:15 05:31 05:45 Temperature Pulse Rate 49 L 75 71 Pulse Rate [ From Monitor] Respiratory 20 19 19 Rate Blood Pressure 125/69 190/99 174/93 O2 Sat by Pulse 100 100 100 Oximetry 01/18/20 01/18/20 01/18/20 06:00 06:15 06:31 Temperature Pulse Rate 67 64 60 Pulse Rate [ From Monitor] Respiratory 20 19 20 Rate Blood Pressure 182/95 172/89 150/82 O2 Sat by Pulse 100 100 100 Oximetry 01/18/20 01/18/20 01/18/20 06:45 07:00 07:15 Temperature Pulse Rate 55 L 54 L 50 L Pulse Rate [ From Monitor] Respiratory 20 20 10 L Rate Blood Pressure 146/81 133/75 137/72 O2 Sat by Pulse 100 100 100 Oximetry 01/18/20 01/18/20 01/18/20 07:30 07:45 08:00 Temperature 97.7 F Pulse Rate 47 L 45 L 45 L Pulse Rate [ 46 L From Monitor] Respiratory 19 20 20 Rate Blood Pressure 131/73 136/75 140/77 O2 Sat by Pulse 100 100 100 Oximetry 01/18/20 01/18/20 01/18/20 08:12 08:15 08:31 Temperature Pulse Rate 45 L 45 L 44 L Pulse Rate [ From Monitor] Respiratory 17 19 Rate Blood Pressure 140/77 132/71 123/68 O2 Sat by Pulse 100 100 100 Oximetry 01/18/20 01/18/20 01/18/20 08:45 09:00 09:15 Temperature Pulse Rate 44 L 43 L 43 L Pulse Rate [ From Monitor] Respiratory 20 19 19 Rate Blood Pressure 120/68 122/67 116/70 O2 Sat by Pulse 100 100 100 Oximetry 01/18/20 01/18/20 01/18/20 09:30 09:45 10:00 Temperature Pulse Rate 42 L 43 L 43 L Pulse Rate [ From Monitor] Respiratory 20 20 20 Rate Blood Pressure 126/71 127/71 131/74 O2 Sat by Pulse 100 100 100 Oximetry 01/18/20 01/18/20 01/18/20 10:15 10:31 10:45 Temperature Pulse Rate 42 L 42 L 45 L Pulse Rate [ From Monitor] Respiratory 20 20 19 Rate Blood Pressure 130/70 123/64 113/60 O2 Sat by Pulse 100 100 100 Oximetry 01/18/20 01/18/20 01/18/20 11:01 11:15 11:30 Temperature Pulse Rate 44 L 43 L 45 L Pulse Rate [ From Monitor] Respiratory 19 20 19 Rate Blood Pressure 116/60 120/63 115/62 O2 Sat by Pulse 100 100 100 Oximetry 01/18/20 01/18/20 01/18/20 11:45 12:00 12:01 Temperature 98.3 F Pulse Rate 41 L 40 L 40 L Pulse Rate [ 40 L From Monitor] Respiratory 19 20 19 Rate Blood Pressure 120/65 128/69 O2 Sat by Pulse 100 100 100 Oximetry 01/18/20 01/18/20 01/18/20 12:15 12:31 12:45 Temperature Pulse Rate 40 L 75 79 Pulse Rate [ From Monitor] Respiratory 20 21 20 Rate Blood Pressure 126/72 187/101 122/71 O2 Sat by Pulse 100 100 100 Oximetry 01/18/20 13:00 Temperature Pulse Rate 68 Pulse Rate [ From Monitor] Respiratory 20 Rate Blood Pressure 125/73 O2 Sat by Pulse 100 Oximetry Constitutional: no acute distress, other (Morbidly obese AAW, supine ETT 7.5 at 23cm CHAD) Eyes: non-icteric ENT: oropharynx moist, other (ETT 24 cm CHAD) Neck: supple, no lymphadenopathy, no JVD Effort: mildly labored Ascultation: Bilateral: diminished breath sounds, rhonchi (scant) Percussion: Bilateral: not dull Cardiovascular: regular rate and rhythm, other Gastrointestinal: normoactive bowel sounds, soft, non-tender, non-distended (protuberant) Integumentary: normal Extremities: no cyanosis, pulses normal, no ischemia or petechiae, edema (trace) Neurologic: non-focal exam (grossly), pupils equal and round, CN II-XII normal, unable to assess Psychiatric: other (sedated) CBC and BMP: 01/17/20 06:00 01/18/20 04:00 ABG, PT/INR, D-dimer: ABG ABG pH 7.397 pH Units (7.350-7.450) 01/18/20 03:40 POC ABG pCO2 33.9 mmHg (32.0-48.0) 01/16/20 03:33 ABG pCO2 39.4 mm Hg 01/18/20 03:40 POC ABG pO2 86.3 mmHg (83-108) 01/16/20 03:33 ABG pO2 162.6 mm Hg (80.0-90.0) H 01/18/20 03:40 POC ABG HCO3 24.5 01/16/20 03:33 ABG O2 Saturation 99.0 % (95.0-99.0) 01/18/20 03:40 PT/INR, D-dimer D-Dimer 1878.79 ng/mlDDU (0-234) H 01/17/20 13:40 Abnormal lab findings: Abnormal Labs 01/11/20 01/11/20 01/11/20 17:22 17:22 17:22 WBC RBC MCV MCH RDW Plt Count Lymph % (Auto) [place] # Seg Neutrophils % Seg Neuts % (Manual) Lymphocytes % (Manual) Seg Neutrophils # Seg Neutrophils # Man Lymphocytes # (Manual) D-Dimer 622.52 H ABG pH POC ABG pCO2 POC ABG pO2 ABG pO2 ABG O2 Saturation ABG Base Excess ABG Oxyhemoglobin ABG Hemoglobin Oxyhemoglobin Sodium Potassium Chloride 97.6 L Carbon Dioxide 18 L BUN Creatinine Glucose 199 H POC Glucose Lactic Acid 2.20 H* Ferritin AST 68 H Magnesium Lactate Dehydrogenase C-Reactive Protein Total Protein Albumin 3.0 L Znprf-5-Skldecrmo Ofetu-3-Gjebialds PEP Interpretation Triglycerides TSH Complement C4 Coronavirus (PCR) 01/11/20 01/11/20 01/11/20 17:22 17:22 23:29 WBC RBC MCV MCH RDW Plt Count Lymph % (Auto) [place] # Seg Neutrophils % Seg Neuts % (Manual) Lymphocytes % (Manual) Seg Neutrophils # Seg Neutrophils # Man Lymphocytes # (Manual) D-Dimer ABG pH POC ABG pCO2 POC ABG pO2 ABG pO2 ABG O2 Saturation ABG Base Excess ABG Oxyhemoglobin ABG Hemoglobin Oxyhemoglobin Sodium Potassium Chloride Carbon Dioxide BUN Creatinine Glucose 202 H POC Glucose Lactic Acid 2.10 H* Ferritin 270.3 H AST Magnesium Lactate Dehydrogenase 610 H C-Reactive Protein 23.80 H Total Protein Albumin Ynigl-4-Adethyjiv Gflyt-6-Vykzijqbd PEP Interpretation Triglycerides TSH Complement C4 Coronavirus (PCR) 01/12/20 01/12/20 01/12/20 07:07 07:07 09:00 WBC RBC 5.31 H MCV 76 L MCH 25 L RDW 15.5 H Plt Count Lymph % (Auto) 11.2 L [place] # Seg Neutrophils % 85.2 H Seg Neuts % (Manual) Lymphocytes % (Manual) Seg Neutrophils # 9.2 H Seg Neutrophils # Man Lymphocytes # (Manual) D-Dimer ABG pH POC ABG pCO2 POC ABG pO2 ABG pO2 ABG O2 Saturation ABG Base Excess ABG Oxyhemoglobin ABG Hemoglobin Oxyhemoglobin Sodium Potassium Chloride Carbon Dioxide 21 L BUN 23 H Creatinine Glucose 206 H POC Glucose Lactic Acid Ferritin AST Magnesium Lactate Dehydrogenase C-Reactive Protein Total Protein Albumin Vduli-4-Cysnvritj Cknya-6-Mffbcmoik PEP Interpretation Triglycerides TSH Complement C4 Coronavirus (PCR) Positive A 01/13/20 01/13/20 01/13/20 01:02 04:45 05:10 WBC RBC MCV MCH RDW Plt Count Lymph % (Auto) [place] # Seg Neutrophils % Seg Neuts % (Manual) Lymphocytes % (Manual) Seg Neutrophils # Seg Neutrophils # Man Lymphocytes # (Manual) D-Dimer > 43792 H ABG pH 7.19 L POC ABG pCO2 56.2 H POC ABG pO2 44.3 L 62.5 L ABG pO2 ABG O2 Saturation ABG Base Excess ABG Oxyhemoglobin 77.5 L 86.5 L ABG Hemoglobin Oxyhemoglobin Sodium Potassium Chloride Carbon Dioxide BUN Creatinine Glucose POC Glucose Lactic Acid Ferritin AST Magnesium Lactate Dehydrogenase C-Reactive Protein Total Protein Albumin Iirdo-1-Uystjljxa Vyxcx-4-Wavhxsfmb PEP Interpretation Triglycerides TSH Complement C4 Coronavirus (PCR) 01/13/20 01/13/20 01/13/20 05:10 05:54 12:07 WBC RBC MCV MCH RDW Plt Count Lymph % (Auto) [place] # Seg Neutrophils % Seg Neuts % (Manual) Lymphocytes % (Manual) Seg Neutrophils # Seg Neutrophils # Man Lymphocytes # (Manual) D-Dimer ABG pH POC ABG pCO2 POC ABG pO2 ABG pO2 ABG O2 Saturation ABG Base Excess ABG Oxyhemoglobin ABG Hemoglobin Oxyhemoglobin Sodium Potassium Chloride Carbon Dioxide BUN Creatinine Glucose POC Glucose 356 H 309 H Lactic Acid Ferritin AST Magnesium Lactate Dehydrogenase 999 H C-Reactive Protein Total Protein Albumin Dcrnr-0-Sxzfqbayj Otqhs-0-Ayisrkhnx PEP Interpretation Triglycerides TSH Complement C4 Coronavirus (PCR) 01/13/20 01/13/20 01/13/20 12:54 18:46 18:50 WBC 14.0 H RBC MCV 76 L MCH 25 L RDW 15.8 H Plt Count 113 L Lymph % (Auto) [place] # Seg Neutrophils % Seg Neuts % (Manual) 88.0 H Lymphocytes % (Manual) 2.0 L Seg Neutrophils # Seg Neutrophils # Man 12.3 H Lymphocytes # (Manual) 0.3 L D-Dimer ABG pH 7.290 L POC ABG pCO2 POC ABG pO2 ABG pO2 60.2 L ABG O2 Saturation 88.6 L ABG Base Excess -2.7 L ABG Oxyhemoglobin ABG Hemoglobin Oxyhemoglobin 87.1 L Sodium Potassium Chloride Carbon Dioxide BUN Creatinine Glucose POC Glucose 268 H Lactic Acid Ferritin AST Magnesium Lactate Dehydrogenase C-Reactive Protein Total Protein Albumin Suytw-3-Kxcemnahz Yuucs-7-Ftiilwudt PEP Interpretation Triglycerides TSH Complement C4 Coronavirus (PCR) 01/13/20 01/14/20 01/14/20 23:53 00:31 03:13 WBC RBC MCV MCH RDW Plt Count Lymph % (Auto) [place] # Seg Neutrophils % Seg Neuts % (Manual) Lymphocytes % (Manual) Seg Neutrophils # Seg Neutrophils # Man Lymphocytes # (Manual) D-Dimer ABG pH POC ABG pCO2 POC ABG pO2 ABG pO2 132.6 H ABG O2 Saturation ABG Base Excess -2.7 L ABG Oxyhemoglobin ABG Hemoglobin Oxyhemoglobin Sodium Potassium 5.3 H Chloride Carbon Dioxide BUN 55 H Creatinine 1.6 H Glucose 268 H POC Glucose 259 H Lactic Acid Ferritin AST 46 H Magnesium Lactate Dehydrogenase C-Reactive Protein Total Protein 6.1 L Albumin 3.1 L Fsyad-6-Oqoewwwav Xtwnm-6-Zfvyodyru PEP Interpretation Triglycerides TSH Complement C4 Coronavirus (PCR) 01/14/20 01/14/20 01/14/20 05:23 06:06 09:47 WBC RBC MCV MCH RDW Plt Count Lymph % (Auto) [place] # Seg Neutrophils % Seg Neuts % (Manual) Lymphocytes % (Manual) Seg Neutrophils # Seg Neutrophils # Man Lymphocytes # (Manual) D-Dimer > 08086 H ABG pH POC ABG pCO2 POC ABG pO2 ABG pO2 ABG O2 Saturation ABG Base Excess ABG Oxyhemoglobin ABG Hemoglobin Oxyhemoglobin Sodium Potassium 5.5 H Chloride 107.6 H Carbon Dioxide 21 L BUN 58 H Creatinine 1.7 H Glucose 231 H POC Glucose 231 H Lactic Acid Ferritin AST Magnesium Lactate Dehydrogenase C-Reactive Protein Total Protein Albumin Yorpu-1-Xdryjlhex Kylne-7-Kfiqtrlse PEP Interpretation Triglycerides TSH Complement C4 Coronavirus (PCR) 01/14/20 01/14/20 01/14/20 09:47 12:20 16:00 WBC RBC MCV MCH RDW Plt Count Lymph % (Auto) [place] # Seg Neutrophils % Seg Neuts % (Manual) Lymphocytes % (Manual) Seg Neutrophils # Seg Neutrophils # Man Lymphocytes # (Manual) D-Dimer ABG pH POC ABG pCO2 POC ABG pO2 ABG pO2 69.3 L ABG O2 Saturation 94.4 L ABG Base Excess ABG Oxyhemoglobin ABG Hemoglobin Oxyhemoglobin 92.7 L Sodium Potassium Chloride 107.2 H Carbon Dioxide 21 L BUN 63 H Creatinine 1.5 H Glucose 217 H POC Glucose 238 H Lactic Acid Ferritin AST Magnesium Lactate Dehydrogenase C-Reactive Protein Total Protein 6.0 L Albumin 2.7 L Didkf-8-Xhzymskhp Rjfim-0-Qwuauoqat PEP Interpretation Triglycerides TSH Complement C4 Coronavirus (PCR) 01/14/20 01/14/20 01/14/20 18:24 19:01 23:50 WBC RBC MCV MCH RDW Plt Count Lymph % (Auto) [place] # Seg Neutrophils % Seg Neuts % (Manual) Lymphocytes % (Manual) Seg Neutrophils # Seg Neutrophils # Man Lymphocytes # (Manual) D-Dimer ABG pH POC ABG pCO2 POC ABG pO2 ABG pO2 ABG O2 Saturation ABG Base Excess ABG Oxyhemoglobin ABG Hemoglobin Oxyhemoglobin Sodium 146 H Potassium 5.9 H Chloride 108.0 H Carbon Dioxide 20 L BUN 61 H Creatinine 1.4 H Glucose 254 H POC Glucose 228 H 321 H Lactic Acid Ferritin AST Magnesium Lactate Dehydrogenase C-Reactive Protein Total Protein Albumin Jrqno-5-Fzhujprbz Txrqf-1-Xlkgtzobe PEP Interpretation Triglycerides TSH Complement C4 Coronavirus (PCR) 01/14/20 01/14/20 01/15/20 Unknown Unknown 03:37 WBC RBC MCV MCH RDW Plt Count Lymph % (Auto) [place] # Seg Neutrophils % Seg Neuts % (Manual) Lymphocytes % (Manual) Seg Neutrophils # Seg Neutrophils # Man Lymphocytes # (Manual) D-Dimer ABG pH 7.480 H POC ABG pCO2 POC ABG pO2 76.7 L ABG pO2 ABG O2 Saturation ABG Base Excess ABG Oxyhemoglobin ABG Hemoglobin Oxyhemoglobin Sodium Potassium Chloride Carbon Dioxide BUN Creatinine Glucose POC Glucose Lactic Acid Ferritin AST Magnesium Lactate Dehydrogenase C-Reactive Protein Total Protein Albumin 2.8 L Ywcvc-1-Swurdwkfp 0.6 H Gzydp-1-Torxlbwvr 1.1 H PEP Interpretation see below H Triglycerides TSH Complement C4 76 H Coronavirus (PCR) 01/15/20 01/15/20 01/15/20 03:57 03:57 05:50 WBC 14.9 H RBC MCV 75 L MCH 25 L RDW 15.4 H Plt Count Lymph % (Auto) 8.6 L [place] # 1.0 H Seg Neutrophils % 84.2 H Seg Neuts % (Manual) Lymphocytes % (Manual) Seg Neutrophils # 12.5 H Seg Neutrophils # Man Lymphocytes # (Manual) D-Dimer ABG pH POC ABG pCO2 POC ABG pO2 ABG pO2 ABG O2 Saturation ABG Base Excess ABG Oxyhemoglobin ABG Hemoglobin Oxyhemoglobin Sodium 152 H Potassium Chloride 113.0 H Carbon Dioxide BUN 52 H Creatinine Glucose 288 H POC Glucose 259 H Lactic Acid Ferritin AST Magnesium Lactate Dehydrogenase C-Reactive Protein Total Protein Albumin Bhhca-7-Xeyhmcvqk Hkcyy-3-Juacvoicj PEP Interpretation Triglycerides TSH Complement C4 Coronavirus (PCR) 01/15/20 01/15/20 01/15/20 11:56 14:35 14:35 WBC RBC MCV MCH RDW Plt Count Lymph % (Auto) [place] # Seg Neutrophils % Seg Neuts % (Manual) Lymphocytes % (Manual) Seg Neutrophils # Seg Neutrophils # Man Lymphocytes # (Manual) D-Dimer ABG pH POC ABG pCO2 POC ABG pO2 ABG pO2 ABG O2 Saturation ABG Base Excess ABG Oxyhemoglobin ABG Hemoglobin Oxyhemoglobin Sodium Potassium Chloride Carbon Dioxide BUN Creatinine Glucose POC Glucose 162 H Lactic Acid Ferritin 332.4 H AST Magnesium Lactate Dehydrogenase 747 H C-Reactive Protein 7.60 H Total Protein Albumin Ssvnv-5-Xjbtczmcb Kocvs-8-Dcvenbtew PEP Interpretation Triglycerides TSH Complement C4 Coronavirus (PCR) 01/15/20 01/15/20 01/15/20 14:35 14:35 16:18 WBC RBC MCV MCH RDW Plt Count Lymph % (Auto) [place] # Seg Neutrophils % Seg Neuts % (Manual) Lymphocytes % (Manual) Seg Neutrophils # Seg Neutrophils # Man Lymphocytes # (Manual) D-Dimer ABG pH 7.510 H POC ABG pCO2 POC ABG pO2 76.6 L ABG pO2 ABG O2 Saturation ABG Base Excess ABG Oxyhemoglobin ABG Hemoglobin Oxyhemoglobin Sodium Potassium Chloride Carbon Dioxide BUN Creatinine Glucose POC Glucose Lactic Acid Ferritin AST Magnesium 3.00 H Lactate Dehydrogenase C-Reactive Protein Total Protein Albumin Edusi-8-Fnzxtwrhc Agdtb-0-Lsmguglkf PEP Interpretation Triglycerides TSH 0.221 L Complement C4 Coronavirus (PCR) 01/15/20 01/15/20 01/16/20 17:31 23:26 03:33 WBC RBC MCV MCH RDW Plt Count Lymph % (Auto) [place] # Seg Neutrophils % Seg Neuts % (Manual) Lymphocytes % (Manual) Seg Neutrophils # Seg Neutrophils # Man Lymphocytes # (Manual) D-Dimer ABG pH 7.477 H POC ABG pCO2 POC ABG pO2 ABG pO2 ABG O2 Saturation ABG Base Excess ABG Oxyhemoglobin ABG Hemoglobin Oxyhemoglobin Sodium Potassium Chloride Carbon Dioxide BUN Creatinine Glucose POC Glucose 239 H 226 H Lactic Acid Ferritin AST Magnesium Lactate Dehydrogenase C-Reactive Protein Total Protein Albumin Hbgwl-9-Ebstcsbkc Yhbvh-3-Regkrwdlt PEP Interpretation Triglycerides TSH Complement C4 Coronavirus (PCR) 01/16/20 01/16/20 01/16/20 04:00 04:00 05:45 WBC 13.6 H RBC MCV 74 L MCH 25 L RDW 15.4 H Plt Count Lymph % (Auto) [place] # Seg Neutrophils % Seg Neuts % (Manual) 91.0 H Lymphocytes % (Manual) 5.0 L Seg Neutrophils # Seg Neutrophils # Man 12.4 H Lymphocytes # (Manual) 0.7 L D-Dimer ABG pH POC ABG pCO2 POC ABG pO2 ABG pO2 ABG O2 Saturation ABG Base Excess ABG Oxyhemoglobin ABG Hemoglobin Oxyhemoglobin Sodium 151 H Potassium Chloride 113.8 H Carbon Dioxide BUN 45 H Creatinine Glucose 213 H POC Glucose 202 H Lactic Acid Ferritin AST Magnesium Lactate Dehydrogenase C-Reactive Protein Total Protein Albumin Houzs-0-Buszrxizk Yhrep-4-Mezbakodx PEP Interpretation Triglycerides TSH Complement C4 Coronavirus (PCR) 01/16/20 01/16/20 01/17/20 12:02 17:27 00:07 WBC RBC MCV MCH RDW Plt Count Lymph % (Auto) [place] # Seg Neutrophils % Seg Neuts % (Manual) Lymphocytes % (Manual) Seg Neutrophils # Seg Neutrophils # Man Lymphocytes # (Manual) D-Dimer ABG pH POC ABG pCO2 POC ABG pO2 ABG pO2 ABG O2 Saturation ABG Base Excess ABG Oxyhemoglobin ABG Hemoglobin Oxyhemoglobin Sodium Potassium Chloride Carbon Dioxide BUN Creatinine Glucose POC Glucose 186 H 240 H 207 H Lactic Acid Ferritin AST Magnesium Lactate Dehydrogenase C-Reactive Protein Total Protein Albumin Jplnk-0-Tiszgcits Vgumv-0-Ibktdchhk PEP Interpretation Triglycerides TSH Complement C4 Coronavirus (PCR) 01/17/20 01/17/20 01/17/20 04:50 05:46 06:00 WBC 11.5 H RBC MCV 75 L MCH 25 L RDW 15.5 H Plt Count Lymph % (Auto) [place] # Seg Neutrophils % Seg Neuts % (Manual) 81.0 H Lymphocytes % (Manual) 10.0 L Seg Neutrophils # Seg Neutrophils # Man 9.3 H Lymphocytes # (Manual) D-Dimer ABG pH 7.494 H POC ABG pCO2 POC ABG pO2 ABG pO2 73.4 L ABG O2 Saturation ABG Base Excess ABG Oxyhemoglobin ABG Hemoglobin Oxyhemoglobin 94.4 L Sodium Potassium Chloride Carbon Dioxide BUN Creatinine Glucose POC Glucose 170 H Lactic Acid Ferritin AST Magnesium Lactate Dehydrogenase C-Reactive Protein Total Protein Albumin Gwyzz-4-Czkjzgtme Wuswo-1-Dqmfjrlmg PEP Interpretation Triglycerides TSH Complement C4 Coronavirus (PCR) 01/17/20 01/17/20 01/17/20 06:00 11:32 13:40 WBC RBC MCV MCH RDW Plt Count Lymph % (Auto) [place] # Seg Neutrophils % Seg Neuts % (Manual) Lymphocytes % (Manual) Seg Neutrophils # Seg Neutrophils # Man Lymphocytes # (Manual) D-Dimer 1878.79 H ABG pH POC ABG pCO2 POC ABG pO2 ABG pO2 ABG O2 Saturation ABG Base Excess ABG Oxyhemoglobin ABG Hemoglobin Oxyhemoglobin Sodium 151 H Potassium Chloride 113.6 H Carbon Dioxide BUN 40 H Creatinine Glucose 149 H POC Glucose 229 H Lactic Acid Ferritin AST Magnesium Lactate Dehydrogenase C-Reactive Protein Total Protein Albumin Vwtgv-1-Rravhhdtp Gvihi-1-Piemqykks PEP Interpretation Triglycerides TSH Complement C4 Coronavirus (PCR) 01/17/20 01/17/20 01/17/20 13:40 13:40 17:45 WBC RBC MCV MCH RDW Plt Count Lymph % (Auto) [place] # Seg Neutrophils % Seg Neuts % (Manual) Lymphocytes % (Manual) Seg Neutrophils # Seg Neutrophils # Man Lymphocytes # (Manual) D-Dimer ABG pH POC ABG pCO2 POC ABG pO2 ABG pO2 ABG O2 Saturation ABG Base Excess ABG Oxyhemoglobin ABG Hemoglobin Oxyhemoglobin Sodium Potassium Chloride Carbon Dioxide BUN Creatinine Glucose POC Glucose 364 H Lactic Acid Ferritin 322.8 H AST Magnesium Lactate Dehydrogenase 587 H C-Reactive Protein 4.60 H Total Protein Albumin Iccel-1-Qeduiqbdh Xwhus-9-Aactzyvxd PEP Interpretation Triglycerides TSH Complement C4 Coronavirus (PCR) 01/17/20 01/17/20 01/18/20 21:30 23:53 03:40 WBC RBC MCV MCH RDW Plt Count Lymph % (Auto) [place] # Seg Neutrophils % Seg Neuts % (Manual) Lymphocytes % (Manual) Seg Neutrophils # Seg Neutrophils # Man Lymphocytes # (Manual) D-Dimer ABG pH POC ABG pCO2 POC ABG pO2 ABG pO2 179.6 H 162.6 H ABG O2 Saturation 99.2 H ABG Base Excess ABG Oxyhemoglobin ABG Hemoglobin 11.8 L Oxyhemoglobin Sodium Potassium Chloride Carbon Dioxide BUN Creatinine Glucose POC Glucose 272 H Lactic Acid Ferritin AST Magnesium Lactate Dehydrogenase C-Reactive Protein Total Protein Albumin Xiptc-7-Rvxpcmyfc Sitpv-5-Rdngkffuq PEP Interpretation Triglycerides TSH Complement C4 Coronavirus (PCR) 01/18/20 01/18/20 01/18/20 04:00 05:00 05:54 WBC RBC MCV MCH RDW Plt Count Lymph % (Auto) [place] # Seg Neutrophils % Seg Neuts % (Manual) Lymphocytes % (Manual) Seg Neutrophils # Seg Neutrophils # Man Lymphocytes # (Manual) D-Dimer ABG pH POC ABG pCO2 POC ABG pO2 ABG pO2 ABG O2 Saturation ABG Base Excess ABG Oxyhemoglobin ABG Hemoglobin Oxyhemoglobin Sodium 150 H Potassium Chloride 113.4 H Carbon Dioxide BUN 44 H Creatinine Glucose 268 H POC Glucose 271 H Lactic Acid Ferritin AST Magnesium Lactate Dehydrogenase C-Reactive Protein Total Protein Albumin Cpurn-1-Nhijwkkff Fzzky-3-Qvlkgiajw PEP Interpretation Triglycerides 198 H TSH Complement C4 Coronavirus (PCR) 01/18/20 11:21 WBC RBC MCV MCH RDW Plt Count Lymph % (Auto) [place] # Seg Neutrophils % Seg Neuts % (Manual) Lymphocytes % (Manual) Seg Neutrophils # Seg Neutrophils # Man Lymphocytes # (Manual) D-Dimer ABG pH POC ABG pCO2 POC ABG pO2 ABG pO2 ABG O2 Saturation ABG Base Excess ABG Oxyhemoglobin ABG Hemoglobin Oxyhemoglobin Sodium Potassium Chloride Carbon Dioxide BUN Creatinine Glucose POC Glucose 244 H Lactic Acid Ferritin AST Magnesium Lactate Dehydrogenase C-Reactive Protein Total Protein Albumin Xjqxy-4-Ccngqpxyw Yxrnn-7-Nsutvxtzr PEP Interpretation Triglycerides TSH Complement C4 Coronavirus (PCR) Chest x-ray: other (none today) Allied health notes reviewed: RT
--- NOTE | 2020-01-18 16:19 | XRay Report ---
CHEST 1 VIEW INDICATION / CLINICAL INFORMATION: follow up respiratory failure. COMPARISON: 01/17/2020 FINDINGS: SUPPORT DEVICES: Unchanged HEART / MEDIASTINUM: Unchanged LUNGS / PLEURA: The lungs appear unchanged. No pneumothorax. ADDITIONAL FINDINGS: No significant additional findings. IMPRESSION: 1. No significant change. Signer Name: Javi Rizvi MD Signed: 01/18/2020 4:14 PM Workstation Name: [id number]
[2020-01-19] MEDS: fentaNYL DRIP Premix 2,000 MCG/100 ML BAG IV SCH ×6 (02:38→23:45)
[2020-01-19] MEDS: MIDAZOLAM 100 MG in SODIUM CHLORIDE 0.9% 80 ML IV SCH (05:04)
[2020-01-19 05:42] LABS: ABG Base Excess 0.6 mmol/L (-2.0-3.0); ABG HCO3 24.9 mmol/L (20.0-26.0); ABG Methemoglobin 0.5 % (0.0-1.5); ABG Oxygen Saturation 98.3 % (95.0-99.0); ABG PCO2 38.6 mm Hg; ABG PH 7.427 pH Units (7.350-7.450); ABG PO2 117.2 mm Hg (80.0-90.0)
[2020-01-19 05:53] LABS: BUN/Creatinine Ratio 42; Blood Urea Nitrogen 38 mg/dL (7-17); Calcium 8.5 mg/dL (8.4-10.2); Hemolysis Index 10
[2020-01-19] MEDS: INSULIN LISPRO 100 UNIT/ML VIAL 3 mL SUB-Q SCH ×4 (06:54→18:02)
--- NOTE | 2020-01-19 08:04 | Progress Note ---
Assessment and Plan Assessment and plan: Acute hypoxic respiratory failure. Etiology likely secondary to COVID-19 infection. Patient remains on mechanical ventilation. Pulmonary following. COVID-19 pneumonia. Patient was initially diagnosed 8 days prior to admission. Patient has high d-dimer and inflammatory markers. ID following. Continue dexamethasone 6 mg IV for completion of 10 days. Treated with remdesivir for 4 days and stopped on 01/17/2020 per ID recommendation because of bradycardia. Continue to trend inflammatory markers. Full dose anticoagulation given the high d-dimer. Sepsis. Etiology secondary to above. Continue IV antibiotics of ceftriaxone and azithromycin. Morbid obesity. Severe bradycardia this morning 01/15/2020; was in the 30's and was given atropine, and cardiology consulted. Elevated LFTs/transaminitis. Etiology likely secondary to sepsis/COVID-19 Acute kidney injury. Etiology secondary to sepsis/ATN. Nephrology consultation Hyperkalemia. Etiology likely secondary to above. Kayexalate x1. 01/16/2020; patient is still on mechanical ventilation FiO2 40, PEEP 14, patient is on fentanyl, Versed, propofol. Patient proned. We will continue to monitor. Patient is off IV antibiotics. Treated for 5 days with IV ceftriaxone. ID, nephrology and pulmonary consult appreciated 01/17/2020; patient is still on mechanical ventilation FiO2 40, PEEP 14, patient is on fentanyl, Versed, propofol. Patient proned. We will continue to monitor. Patient is off IV antibiotics. Treated for 5 days with IV ceftriaxone. ID, nephrology and pulmonary consult appreciated. Patient has elevated sodium level and advised to increase free water intake through the NG tube feeding. 01/18/2020; patient is still on mechanical ventilation with FiO2 of 40 and PEEP of 14 patient is on fentanyl and Versed for sedation. Patient is on dexamethasone day 7 and probably severe was stopped yesterday after fourth dose per ID recommendation, patient is bradycardic. Cardiology was consulted and recommend to follow her closely. If heart rates below 40 we want to give her atropine. I discussed the management plan with her father Mr. Baxter in detail at [phone]. Mr. Baxter said his daughter was suffering from asthma and bipolar disorder. 01/19/20; patient is on mechanical ventilation FiO2 of 35 and PEEP of 8, patient is on fentanyl and Versed for sedation. Patient is on dexamethasone day 8. From the severe discontinued after she took for 4 days per ID recommendation due to bradycardia. Cardiology and nephrology consult appreciated. Discussed with her father in detail about the management plan on 01/18/2020. Continue with the same management. 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 The high probability of a clinically significant, sudden or life threatening deterioration of the [respiratory and immunologic] system(s) required my full and direct attention, intervention and personal management. The aggregate critical care time was [33] minutes. This time is in addition to time spent performing reported procedures but includes the following: [x] Data Review and interpretation [x] Patient assessment and monitoring of vital signs [x] Documentation [x] Medication orders and management History Interval history: Patient was seen and evaluated during morning rounds Patient was intubated and sedated, PEEP 8, FiO2 35 Patient is on fentanyl and Versed Patient had bradycardia-cardiology saw the patient and no further work-up is due to dexamethasone Hospitalist Physical - Physical exam Narrative exam: Patient is intubated and on mechanical ventilation The patient is obese. Vital signs as documented. Head exam is unremarkable. No scleral icterus . Neck is without jugular venous distension, thyromegaly, or carotid bruits. On mechanical ventilation Cardiac exam reveals regular rate and Rhythm. Abdominal exam reveals normal bowel sounds, nontender, no organomegaly. Extremities are nonedematous and both femoral and pedal pulses are normal. DIRECTOR MEDIA: Sedated. - Constitutional Vitals: Temp Pulse Resp BP Pulse Ox 99.2 F 50 L 20 125/65 100 01/19/20 03:31 01/19/20 06:30 01/19/20 06:30 01/19/20 06:30 01/19/20 06:30 General appearance: Present: obese, other (orally intubation-sedated) Results - Labs CBC & Chem 7: 01/17/20 06:00 01/19/20 04:00 Labs: Laboratory Last Values WBC 11.5 K/mm3 (4.5-11.0) H 01/17/20 06:00 RBC 4.97 M/mm3 (3.65-5.03) 01/17/20 06:00 Hgb 12.2 gm/dl (10.1-14.3) 01/17/20 06:00 Hct 37.3 % (30.3-42.9) 01/17/20 06:00 MCV 75 fl (79-97) L 01/17/20 06:00 MCH 25 pg (28-32) L 01/17/20 06:00 MCHC 33 % (30-34) 01/17/20 06:00 RDW 15.5 % (13.2-15.2) H 01/17/20 06:00 Plt Count 327 K/mm3 (140-440) 01/17/20 06:00 Lymph % (Auto) 8.6 % (13.4-35.0) L 01/15/20 03:57 [place] % (Auto) 7.0 % (0.0-7.3) 01/15/20 03:57 Eos % (Auto) 0.0 % (0.0-4.3) 01/15/20 03:57 Baso % (Auto) 0.2 % (0.0-1.8) 01/15/20 03:57 Lymph # 1.3 K/mm3 (1.2-5.4) 01/15/20 03:57 [place] # 1.0 K/mm3 (0.0-0.8) H 01/15/20 03:57 Eos # 0.0 K/mm3 (0.0-0.4) 01/15/20 03:57 Baso # 0.0 K/mm3 (0.0-0.1) 01/15/20 03:57 Seg Neutrophils % 84.2 % (40.0-70.0) H 01/15/20 03:57 Add Manual Diff Complete 01/17/20 06:00 Total Counted 100 01/17/20 06:00 Seg Neutrophils # 12.5 K/mm3 (1.8-7.7) H 01/15/20 03:57 Seg Neuts % (Manual) 81.0 % (40.0-70.0) H 01/17/20 06:00 Band Neutrophils % 0 % 01/17/20 06:00 Lymphocytes % (Manual) 10.0 % (13.4-35.0) L 01/17/20 06:00 Reactive Lymphs % (Man) 0 % 01/17/20 06:00 Monocytes % (Manual) 2.0 % (0.0-7.3) 01/17/20 06:00 Eosinophils % (Manual) 0 % (0.0-4.3) 01/17/20 06:00 Basophils % (Manual) 0 % (0.0-1.8) 01/17/20 06:00 Metamyelocytes % 6.0 % 01/17/20 06:00 Myelocytes % 1.0 % 01/17/20 06:00 Promyelocytes % 0 % 01/17/20 06:00 Blast Cells % 0 % 01/17/20 06:00 Nucleated RBC % Not Reportable 01/17/20 06:00 Seg Neutrophils # Man 9.3 K/mm3 (1.8-7.7) H 01/17/20 06:00 Band Neutrophils # 0.0 K/mm3 01/17/20 06:00 Lymphocytes # (Manual) 1.2 K/mm3 (1.2-5.4) 01/17/20 06:00 Abs React Lymphs (Man) 0.0 K/mm3 01/17/20 06:00 Monocytes # (Manual) 0.2 K/mm3 (0.0-0.8) 01/17/20 06:00 Eosinophils # (Manual) 0.0 K/mm3 (0.0-0.4) 01/17/20 06:00 Basophils # (Manual) 0.0 K/mm3 (0.0-0.1) 01/17/20 06:00 Metamyelocytes # 0.7 K/mm3 01/17/20 06:00 Myelocytes # 0.1 K/mm3 01/17/20 06:00 Promyelocytes # 0.0 K/mm3 01/17/20 06:00 Blast Cells # 0.0 K/mm3 01/17/20 06:00 WBC Morphology Not Reportable 01/17/20 06:00 Hypersegmented Neuts Not Reportable 01/17/20 06:00 Hyposegmented Neuts Not Reportable 01/17/20 06:00 Hypogranular Neuts Not Reportable 01/17/20 06:00 Smudge Cells Not Reportable 01/17/20 06:00 Toxic Granulation Not Reportable 01/17/20 06:00 Toxic Vacuolation Not Reportable 01/17/20 06:00 Dohle Bodies Not Reportable 01/17/20 06:00 Pelger-Huet Anomaly Not Reportable 01/17/20 06:00 Shanti Rods Not Reportable 01/17/20 06:00 Platelet Estimate Consistent w auto 01/17/20 06:00 Clumped Platelets Not Reportable 01/17/20 06:00 Plt Clumps, EDTA Not Reportable 01/17/20 06:00 Large Platelets Not Reportable 01/17/20 06:00 Giant Platelets Not Reportable 01/17/20 06:00 Platelet Satelliting Not Reportable 01/17/20 06:00 Plt Morphology Comment Not Reportable 01/17/20 06:00 RBC Morphology Not Reportable 01/17/20 06:00 Dimorphic RBCs Not Reportable 01/17/20 06:00 Polychromasia Not Reportable 01/17/20 06:00 Hypochromasia 1+ 01/17/20 06:00 Poikilocytosis Not Reportable 01/17/20 06:00 Anisocytosis Few 01/17/20 06:00 Microcytosis Not Reportable 01/17/20 06:00 Macrocytosis Not Reportable 01/17/20 06:00 Spherocytes Not Reportable 01/17/20 06:00 Pappenheimer Bodies Not Reportable 01/17/20 06:00 Sickle Cells Not Reportable 01/17/20 06:00 Target Cells Not Reportable 01/17/20 06:00 Tear Drop Cells Few 01/17/20 06:00 Ovalocytes Not Reportable 01/17/20 06:00 Helmet Cells Not Reportable 01/17/20 06:00 [place] Bodies Not Reportable 01/17/20 06:00 [place] Rings Not Reportable 01/17/20 06:00 [place] Cells Not Reportable 01/17/20 06:00 Bite Cells Not Reportable 01/17/20 06:00 Crenated Cell Not Reportable 01/17/20 06:00 Elliptocytes Not Reportable 01/17/20 06:00 Acanthocytes (Spur) Not Reportable 01/17/20 06:00 Rouleaux Not Reportable 01/17/20 06:00 Hemoglobin C Crystals Not Reportable 01/17/20 06:00 Schistocytes Not Reportable 01/17/20 06:00 Malaria parasites Not Reportable 01/17/20 06:00 [place] Bodies Not Reportable 01/17/20 06:00 Hem Pathologist Commnt No 01/17/20 06:00 D-Dimer 1878.79 ng/mlDDU (0-234) H 01/17/20 13:40 ABG pH 7.427 pH Units (7.350-7.450) 01/19/20 04:40 POC ABG pCO2 33.9 mmHg (32.0-48.0) 01/16/20 03:33 ABG pCO2 38.6 mm Hg 01/19/20 04:40 ABG Oxyhemoglobin 86.5 (94-98) L 01/13/20 04:45 POC ABG pO2 86.3 mmHg (83-108) 01/16/20 03:33 ABG pO2 117.2 mm Hg (80.0-90.0) H 01/19/20 04:40 POC ABG HCO3 24.5 01/16/20 03:33 ABG HCO3 24.9 mmol/L (20.0-26.0) 01/19/20 04:40 ABG O2 Saturation 98.3 % (95.0-99.0) 01/19/20 04:40 ABG O2 Content 13.3 (0.0-44) 01/19/20 04:40 POC ABG Base Excess 1.4 01/16/20 03:33 ABG Base Excess 0.6 mmol/L (-2.0-3.0) 01/19/20 04:40 ABG Hemoglobin 9.7 gm/dl (12.0-16.0) L 01/19/20 04:40 ABG Carboxyhemoglobin 1.5 % (0.0-5.0) 01/19/20 04:40 ABG Methemoglobin 0.5 % (0.0-1.5) 01/19/20 04:40 Carboxyhemoglobin 0.9 (0.5-1.5) 01/13/20 04:45 Oxyhemoglobin 96.3 % (95.0-99.0) 01/19/20 04:40 FiO2 40 % 01/19/20 04:40 Sodium 146 mmol/L (137-145) H 01/19/20 04:00 Potassium 3.8 mmol/L (3.6-5.0) 01/19/20 04:00 Chloride 111.3 mmol/L (98-107) H 01/19/20 04:00 Carbon Dioxide 24 mmol/L (22-30) 01/19/20 04:00 Anion Gap 15 mmol/L 01/19/20 04:00 BUN 38 mg/dL (7-17) H 01/19/20 04:00 Creatinine 0.9 mg/dL (0.6-1.2) 01/19/20 04:00 Estimated GFR > 60 ml/min 01/19/20 04:00 BUN/Creatinine Ratio 42 % 01/19/20 04:00 Glucose 168 mg/dL (65-100) H 01/19/20 04:00 POC Glucose 171 (70-105) H 01/19/20 05:41 Lactic Acid 1.40 mmol/L (0.7-2.0) 01/12/20 07:07 Calcium 8.5 mg/dL (8.4-10.2) 01/19/20 04:00 Total Bilirubin 0.20 mg/dL (0.1-1.2) 01/14/20 09:47 AST 40 units/L (5-40) 01/14/20 09:47 ALT 32 units/L (7-56) 01/14/20 09:47 Alkaline Phosphatase 98 units/L (35-129) 01/14/20 09:47 Magnesium 3.00 mg/dL (1.7-2.3) H 01/15/20 14:35 Ferritin 322.8 ng/mL (10.0-200.0) H 01/17/20 13:40 Total Protein 6.0 g/dL (6.3-8.2) L 01/14/20 09:47 Albumin/Globulin Ratio 0.8 % 01/14/20 09:47 Lactate Dehydrogenase 587 units/L (91-180) H 01/17/20 13:40 C-Reactive Protein 4.60 mg/dL (0.00-1.30) H 01/17/20 13:40 Serum Total Protein 6.2 g/dL (6.1-8.1) 01/14/20 Unknown Albumin 2.8 g/dL (3.8-4.8) L 01/14/20 Unknown Gtjwh-7-Nioshdqnq 0.6 g/dL (0.2-0.3) H 01/14/20 Unknown Cxwsl-0-Ttsgpoqzl 1.1 g/dL (0.5-0.9) H 01/14/20 Unknown Beta Globulins 0.4 g/dL (0.2-0.5) 01/14/20 Unknown Gamma Globulins 0.8 g/dL (0.8-1.7) 01/14/20 Unknown Abnorm Protein Band 1 see below 01/14/20 Unknown PEP Interpretation see below H 01/14/20 Unknown Triglycerides 198 mg/dL (2-149) H 01/18/20 05:00 Procalcitonin 0.33 ng/mL (<0.15) 01/11/20 17:22 TSH 0.221 mlU/mL (0.270-4.200) L 01/15/20 14:35 Free T4 1.23 ng/dL (0.76-1.46) 01/15/20 14:35 Urine Color Yellow (Yellow) 01/11/20 21:50 Urine Turbidity Clear (Clear) 01/11/20 21:50 Urine pH 6.0 (5.0-7.0) 01/11/20 21:50 Ur Specific [place] 1.030 (1.003-1.030) 01/11/20 21:50 Urine Protein >500 mg/dL (Negative) 01/11/20 21:50 Urine Glucose (UA) >=500 mg/dL (Negative) 01/11/20 21:50 Urine Ketones 20 mg/dL (Negative) 01/11/20 21:50 Urine Blood Mod (Negative) 01/11/20 21:50 Urine Nitrite Neg (Negative) 01/11/20 21:50 Urine Bilirubin Neg (Negative) 01/11/20 21:50 Urine Urobilinogen < 2.0 mg/dL (<2.0) 01/11/20 21:50 Ur Leukocyte Esterase Neg (Negative) 01/11/20 21:50 Urine WBC (Auto) 3.0 /HPF (0.0-6.0) 01/11/20 21:50 Urine RBC (Auto) 1.0 /HPF (0.0-6.0) 01/11/20 21:50 U Epithel Cells (Auto) < 1.0 /HPF (0-13.0) 01/11/20 21:50 Urine Bacteria (Auto) 1+ /HPF (Negative) 01/11/20 21:50 Proteinase 3 (PR3) Ab <1.0 AI (<1.0) 01/14/20 Unknown Myeloperoxidase Ab <1.0 AI (<1.0) 01/14/20 Unknown Complement C3 172 mg/dL (83-193) 01/14/20 Unknown Complement C4 76 mg/dL (15-57) H 01/14/20 Unknown Coronavirus (PCR) Positive (Negative) A 01/12/20 09:00 Blood Type B POSITIVE 01/11/20 19:18 Antibody Screen Negative 01/11/20 19:18 De Oliveira/IV: Voiding Method Indwelling Catheter IV Catheter Type [Right Upper PICC Line arm] IV Catheter Type [Right Hand] INT / Saline Lock IV Catheter Type [Left Forearm Peripheral IV ] IV Catheter Type [Right Peripheral IV Antecubital] Active Medications - Current Medications Current Medications: Generic Name Dose Route Start Last Admin Trade Name Freq PRN Reason Stop Dose Admin Acetaminophen 650 mg 01/11/20 18:55 Tylenol PO Q4H PRN Pain MILD(1-3)/Fever >100.5/CORDOVA Lipase/Protease/Amylase 1 each 01/14/20 11:00 Denise Marley 10,500 Unit FEEDTUBE PRN PRN For Clogged Feeding Tube Atropine Sulfate 1 mg 01/15/20 12:00 01/18/20 12:19 Atropine 0.1% (Cardiac) IV 1 mg ONCE PRN Administration HR < 40 Dexamethasone 6 mg 01/13/20 12:00 01/18/20 10:02 Decadron IV 01/22/20 10:01 6 mg Q24HR ASHISH Administration Enoxaparin Sodium 120 mg 01/13/20 12:00 01/18/20 21:49 Enoxaparin SUB-Q 120 mg Q12HR ASHISH Administration Famotidine 20 mg 01/13/20 10:00 01/18/20 21:49 Pepcid IV 20 mg BID ASHISH Administration Fentanyl 50 mcg 01/13/20 01:52 01/13/20 02:15 Sublimaze IV 50 mcg Q10MIN PRN Administration ANALGESIA Hydromorphone HCl 0.25 mg 01/11/20 18:59 01/12/20 21:36 Dilaudid IV 0.25 mg Q4H PRN Administration Pain, Moderate (4-6) Hydrophilic Ointment 1 applic 01/13/20 01:52 Vaseline Lip Therapy TP Q2HR PRN Dry Lips Fentanyl Citrate 2,000 mcg in 100 mls @ 5.69 mls/hr 01/13/20 02:00 01/19/20 06:56 Fentanyl Drip Premix IV 4 mcg/kg/hr TITR ASHISH 22.76 mls/hr Administration Protocol 1 MCG/KG/HR Midazolam HCl 100 mg/ Sodium 100 mls @ 2 mls/hr 01/13/20 02:00 01/19/20 05:04 Chloride IV 5 mg/hr TITR ASHISH 5 mls/hr Administration Protocol 2 MG/HR Dopamine HCl/Dextrose 800 mg in 250 mls @ 4.425 mls/hr 01/17/20 19:00 Intropin Drip 800 Mg/D5w 250 Ml IV TITR ASHISH Protocol 2 MCG/KG/MIN Insulin Glargine 10 units 01/16/20 10:00 01/18/20 10:02 Lantus SUB-Q 10 units DAILY ASHISH Administration Insulin Human Lispro 0 unit 01/13/20 11:00 01/19/20 06:54 Humalog SUB-Q 3 unit Q6H ASHISH Administration Protocol Midazolam HCl 2 mg 01/13/20 01:52 Versed IV Q10MIN PRN Sedation Multi-Ingred Cream/Lotion/Oil/Oint 1 applic 01/13/20 01:52 Artificial Tears Ophth Oint OU Q4HR PRN Dry Eye(s) Ondansetron HCl 4 mg 01/11/20 18:55 Zofran IV Q8H PRN Nausea And Vomiting Simple Syrup 15 ml 01/14/20 11:00 Simple Syrup FEEDTUBE PRN PRN Hypoglycemia Simple Syrup 30 ml 01/14/20 11:00 Simple Syrup FEEDTUBE PRN PRN Hypoglycemia Sodium Bicarbonate 325 mg 01/14/20 11:00 Sodium Bicarbonate FEEDTUBE PRN PRN For Clogged Feeding Tube Sodium Chloride 10 ml 01/11/20 22:00 01/18/20 23:02 Sodium Chloride Flush Syringe 10 Ml IV 10 ml BID ASHISH Administration Sodium Chloride 10 ml 01/11/20 18:55 Sodium Chloride Flush Syringe 10 Ml IV PRN PRN LINE FLUSH Nutrition/Malnutrition Assess - Dietary Evaluation Nutrition/Malnutrition Findings: Nutrition Notes Start: 01/13/20 08:58 Freq: Status: Active Protocol: Document 01/18/20 14:01 [email or web address] (Rec: 01/18/20 14:44 [email or web address]) Co-Sign 01/18/20 14:01 LP Nutrition Notes Initial or Follow up Reassessment Current Diagnosis Diabetes,Sepsis,Respiratory Failure Other Pertinent Diagnosis Pneu, COVID-19 (+) Current Diet Nepro at 10ml/hr Labs/Tests Na 150 BG 268 BUN 44 Pertinent Medications Propofol Insulin Height 4 ft 11 in Weight 114.2 kg [place] Body Weight (kg) 43.18 BMI 50.8 Weight Status Morbidly Obese Subjective/Other Information F/U TF tolerance. TF running at 10ml/hr. Spoke with RN about TF rates and clarified proning rate. PT has 100ml residuals Percent of energy/protein needs met: 14%/9% Burn Absent Trauma Absent GI Symptoms None Current % PO Negligible Minimum of two criteria No physical signs of malnutrition #1 Nutrition Diagnosis Inadequate oral intake Diagnosis Progress(for reassessment Continues documentation) Is patient on ventilator? Yes Is Patient Ambulatory and/or Out of Bed No [facility] 2080.328 Kcal/Kg value to use for calculation 14 Approximate Energy Requirements Using 1599 kcal/Kg Calculation Used for Recommendations Kcal/kg Additional Notes Protein needs are up to 108g ( up to 2.5g/kg) Fluid needs are 1ml/kcal Nutrition Intervention Change Diet Order: TF Nutrition Support: if proned for 12 hrs run TF at 10ml, flush 50 q4h. Remaining 12hrs run TF at 70ml/hr. Flush 350 q4h or 200ml q2h Kcal 1,728 Protein (gm) 78 Fluid (mL) 698 Goal #1 TF tolerance Anticipated Discharge Needs: Unable to determine at this time Follow-Up By: 01/22/20 Additional Comments F/U TF tolerance and Na lab
[2020-01-19] MEDS: dexAMETHasone 4 MG/ML VIAL IV SCH (09:37)
[2020-01-19] MEDS: ENOXAPARIN 120 MG/0.8 ML INJ SUB-Q SCH ×2 (09:40→22:03)
[2020-01-19] MEDS: FAMOTIDINE 20 MG/2 ML INJ IV SCH ×2 (09:40→22:03)
[2020-01-19] MEDS: INSULIN GLARGINE 100 UNITS/ML SUB-Q SCH (09:40)
[2020-01-19] MEDS: HYDROmorphone 1 MG/1 ML INJ IV PRN ×3 (09:49→22:04)
--- NOTE | 2020-01-19 11:57 | Progress Note ---
Subjective Date of service: 01/19/20 Principal diagnosis: Ac. hypoxemic resp failure; COVID infection; PNA; ARACELI; Thrombocytopenia Interval history: Assessment and Plan Sinus bradycardia, now improved HR 81 sinus likely likely secondary to IV dexamethasone. We have been noticing increased evidence of bradycardia" with patient receiving dexamethasone Hemodynamically stable no further cardiac work-up TSH 0.221 COVID -19 viral pneumonia Respiratory failure Diabetes Conservative cardiac management. Objective Vital Signs Temp Pulse Pulse Resp BP Pulse Ox 01/19/20 11:15 82 20 147/83 100 01/19/20 11:05 102 H 161/84 100 01/19/20 11:00 73 20 145/84 100 01/19/20 10:45 100 H 19 149/84 100 01/19/20 10:30 107 H 20 140/76 100 01/19/20 10:19 20 01/19/20 10:15 90 20 161/84 100 01/19/20 10:00 92 H 11 L 161/85 100 01/19/20 09:49 20 01/19/20 09:45 100 H 9 L 172/98 100 01/19/20 09:31 90 20 146/89 100 01/19/20 09:15 100 H 18 125/69 01/19/20 09:01 92 H 17 126/72 01/19/20 08:45 49 L 20 126/72 01/19/20 08:30 48 L 20 125/69 01/19/20 08:15 49 L 20 127/69 01/19/20 08:00 98.5 F 48 L 48 L 20 133/71 01/19/20 07:45 48 L 20 131/72 01/19/20 07:30 46 L 20 132/73 01/19/20 07:15 48 L 20 130/71 100 01/19/20 07:00 45 L 20 135/71 100 01/19/20 06:45 48 L 20 128/65 01/19/20 06:30 50 L 20 125/65 01/19/20 06:15 49 L 20 129/69 100 01/19/20 06:00 50 L 65 20 124/67 01/19/20 05:45 52 L 20 126/68 01/19/20 05:30 50 L 20 128/68 01/19/20 05:15 60 20 129/69 100 01/19/20 05:01 63 158/84 100 01/19/20 05:00 76 19 158/84 100 01/19/20 04:45 70 20 165/81 100 01/19/20 04:30 74 20 143/85 100 01/19/20 04:15 68 19 163/82 100 01/19/20 04:00 61 65 19 148/85 100 01/19/20 03:45 63 20 149/88 100 01/19/20 03:31 99.2 F 01/19/20 03:30 55 L 20 144/79 100 01/19/20 03:15 54 L 20 126/68 100 01/19/20 03:01 53 L 19 126/68 100 01/19/20 02:45 64 19 134/74 100 01/19/20 02:31 63 20 120/68 100 01/19/20 02:15 61 20 101/42 100 01/19/20 02:00 71 68 20 98/35 100 01/19/20 01:45 79 17 95/38 100 01/19/20 01:30 75 20 101/43 100 01/19/20 01:15 82 18 113/48 100 01/19/20 01:00 106 H 20 113/58 99 01/19/20 00:52 115 H 120/75 100 01/19/20 00:48 115 H 130/79 100 01/19/20 00:30 72 20 130/79 100 01/19/20 00:15 70 20 120/69 100 01/19/20 00:00 65 98 H 20 138/72 100 01/18/20 23:45 65 20 122/71 100 01/18/20 23:30 76 20 112/63 100 01/18/20 23:18 98.2 F 01/18/20 23:15 74 21 133/70 100 01/18/20 23:00 76 20 126/65 100 01/18/20 22:45 94 H 18 133/73 100 01/18/20 22:30 85 21 139/72 100 01/18/20 22:15 103 H 21 140/81 100 01/18/20 22:06 98 H 20 162/92 100 01/18/20 22:00 107 H 20 162/92 100 01/18/20 21:45 88 17 131/79 100 09/25/20 21:30 78 20 131/79 01/18/20 21:15 75 21 134/83 100 01/18/20 21:00 54 L 20 125/62 01/18/20 20:45 50 L 20 124/60 01/18/20 20:30 49 L 20 116/60 01/18/20 20:15 49 L 20 120/64 100 01/18/20 20:13 51 L 104/50 01/18/20 20:01 46 L 19 104/50 01/18/20 20:00 63 68 20 01/18/20 19:45 47 L 20 105/51 01/18/20 19:31 45 L 20 107/48 01/18/20 19:27 97.8 F 01/18/20 19:15 45 L 20 106/51 01/18/20 19:00 51 L 20 104/56 01/18/20 18:45 52 L 19 106/55 01/18/20 18:30 57 L 20 107/57 01/18/20 18:15 59 L 20 108/60 01/18/20 18:00 63 19 117/64 01/18/20 17:45 81 20 122/75 01/18/20 17:30 64 20 117/70 01/18/20 17:15 72 20 123/75 01/18/20 17:00 78 20 123/72 01/18/20 16:45 84 19 131/68 01/18/20 16:30 78 20 130/76 01/18/20 16:15 86 20 129/80 01/18/20 16:00 98.5 F 78 80 20 132/75 01/18/20 15:47 80 122/72 01/18/20 15:45 82 20 122/72 100 01/18/20 15:30 79 19 126/65 01/18/20 15:15 73 20 134/81 01/18/20 15:01 58 L 19 145/72 01/18/20 14:45 54 L 20 119/66 100 01/18/20 14:30 52 L 20 124/67 01/18/20 14:15 52 L 20 137/77 01/18/20 14:00 55 L 20 134/75 01/18/20 13:45 56 L 19 136/78 01/18/20 13:30 62 20 133/76 01/18/20 13:15 66 19 131/74 01/18/20 13:00 68 20 125/73 01/18/20 12:45 79 20 122/71 01/18/20 12:31 75 21 187/101 01/18/20 12:15 40 L 20 126/72 01/18/20 12:01 40 L 19 128/69 01/18/20 12:00 98.3 F 40 L 40 L 20 100 - Physical Examination Cardiac: Positive: Reg Rate and Rhythm, S1/S2 Lungs: Positive: clear to auscultation - Labs and Meds Comprehensive Metabolic Panel 01/19/20 Range/Units 04:00 Sodium 146 H (137-145) mmol/L Potassium 3.8 (3.6-5.0) mmol/L Chloride 111.3 H (98-107) mmol/L Carbon Dioxide 24 (22-30) mmol/L BUN 38 H (7-17) mg/dL Creatinine 0.9 (0.6-1.2) mg/dL Glucose 168 H (65-100) mg/dL Calcium 8.5 (8.4-10.2) mg/dL - Allied health notes Allied health notes reviewed: RT
[2020-01-19] MEDS: fentaNYL 100 MCG/2 ML INJ IV PRN (11:59)
[2020-01-19] MEDS: ACETAMINOPHEN 325 MG TAB PO PRN (12:23)
--- NOTE | 2020-01-19 16:18 | Progress Note ---
Assessment and Plan # Acute Kidney Injury: suspect tubular injury in setting of COVID-19, has improved with supportive measures. Does remain at higher risk of future ARACELI given bradycardia, overall critical illness - strict Is/Os - avoid nephrotoxins - IVF prn - supportive care per primary, ICU - serologies, UP/C pending; ANCA negative, complements WNL # Hypernatremia: due to free water deficit, stable at 151->150->146 now. Would continue free water with tube feeds as able or start D5W if tolerated per pulmonary # Acute hypoxic respiratory failure, COVID-19+, Sepsis: appreciate ICU, ID recommendations # Bradycardia: appreciate cardiology input # Hyperkalemia: improved, following Subjective Date of service: 01/19/20 Principal diagnosis: Ac. hypoxemic resp failure; COVID infection; PNA; ARACELI; Thrombocytopenia Interval history: No acute events noted per chart review. Now on back Objective - Exam Narrative Exam: Due to COVID-19 and need to conserve PPE, patient was seen through window and not directly examined. Reviewed examination of primary team. - Vital Signs Vital signs: Vital Signs - 12hr 01/19/20 01/19/20 01/19/20 04:15 04:30 04:45 Temperature Pulse Rate 68 74 70 Pulse Rate [ From Monitor] Respiratory 19 20 20 Rate Blood Pressure 163/82 143/85 165/81 O2 Sat by Pulse 100 100 100 Oximetry 01/19/20 01/19/20 01/19/20 05:00 05:01 05:15 Temperature Pulse Rate 76 63 60 Pulse Rate [ From Monitor] Respiratory 19 20 Rate Blood Pressure 158/84 158/84 129/69 O2 Sat by Pulse 100 100 100 Oximetry 01/19/20 01/19/20 01/19/20 05:30 05:45 06:00 Temperature Pulse Rate 50 L 52 L 50 L Pulse Rate [ 65 From Monitor] Respiratory 20 20 20 Rate Blood Pressure 128/68 126/68 124/67 O2 Sat by Pulse 100 100 100 Oximetry 01/19/20 01/19/20 01/19/20 06:15 06:30 06:45 Temperature Pulse Rate 49 L 50 L 48 L Pulse Rate [ From Monitor] Respiratory 20 20 20 Rate Blood Pressure 129/69 125/65 128/65 O2 Sat by Pulse 100 100 100 Oximetry 01/19/20 01/19/20 01/19/20 07:00 07:15 07:30 Temperature Pulse Rate 45 L 48 L 46 L Pulse Rate [ From Monitor] Respiratory 20 20 20 Rate Blood Pressure 135/71 130/71 132/73 O2 Sat by Pulse 100 100 100 Oximetry 01/19/20 01/19/20 01/19/20 07:45 08:00 08:15 Temperature 98.5 F Pulse Rate 48 L 48 L 49 L Pulse Rate [ 48 L From Monitor] Respiratory 20 20 20 Rate Blood Pressure 131/72 133/71 127/69 O2 Sat by Pulse 100 100 100 Oximetry 01/19/20 01/19/20 01/19/20 08:30 08:45 09:01 Temperature Pulse Rate 48 L 49 L 92 H Pulse Rate [ From Monitor] Respiratory 20 20 17 Rate Blood Pressure 125/69 126/72 126/72 O2 Sat by Pulse 100 100 100 Oximetry 01/19/20 01/19/20 01/19/20 09:15 09:31 09:45 Temperature Pulse Rate 100 H 90 100 H Pulse Rate [ From Monitor] Respiratory 18 20 9 L Rate Blood Pressure 125/69 146/89 172/98 O2 Sat by Pulse 100 100 100 Oximetry 01/19/20 01/19/20 01/19/20 09:49 10:00 10:15 Temperature Pulse Rate 92 H 90 Pulse Rate [ From Monitor] Respiratory 20 11 L 20 Rate Blood Pressure 161/85 161/84 O2 Sat by Pulse 100 100 Oximetry 01/19/20 01/19/20 01/19/20 10:19 10:30 10:45 Temperature Pulse Rate 107 H 100 H Pulse Rate [ From Monitor] Respiratory 20 20 19 Rate Blood Pressure 140/76 149/84 O2 Sat by Pulse 100 100 Oximetry 01/19/20 01/19/20 01/19/20 11:00 11:05 11:15 Temperature Pulse Rate 73 102 H 82 Pulse Rate [ From Monitor] Respiratory 20 20 Rate Blood Pressure 145/84 161/84 147/83 O2 Sat by Pulse 100 100 100 Oximetry 01/19/20 01/19/20 01/19/20 11:30 11:45 11:59 Temperature Pulse Rate 70 99 H Pulse Rate [ From Monitor] Respiratory 20 14 20 Rate Blood Pressure 160/88 147/83 O2 Sat by Pulse 100 100 Oximetry 01/19/20 01/19/20 01/19/20 12:00 12:01 12:15 Temperature 99.5 F Pulse Rate 57 L 58 L 58 L Pulse Rate [ 57 L From Monitor] Respiratory 20 19 20 Rate Blood Pressure 175/95 167/85 O2 Sat by Pulse 100 100 100 Oximetry 01/19/20 01/19/20 01/19/20 12:30 12:45 12:59 Temperature Pulse Rate 63 69 Pulse Rate [ From Monitor] Respiratory 20 20 20 Rate Blood Pressure 165/80 154/85 O2 Sat by Pulse 100 100 Oximetry 01/19/20 01/19/20 01/19/20 13:00 13:15 13:23 Temperature Pulse Rate 55 L 58 L Pulse Rate [ From Monitor] Respiratory 20 20 20 Rate Blood Pressure 167/89 176/89 O2 Sat by Pulse 100 100 Oximetry 01/19/20 01/19/20 01/19/20 13:30 13:31 13:45 Temperature Pulse Rate 113 H 129 H 96 H Pulse Rate [ From Monitor] Respiratory 16 19 Rate Blood Pressure 173/95 176/89 176/89 O2 Sat by Pulse 100 98 100 Oximetry 01/19/20 01/19/20 01/19/20 14:01 14:17 14:30 Temperature Pulse Rate 87 58 L 48 L Pulse Rate [ From Monitor] Respiratory 21 20 20 Rate Blood Pressure 173/95 144/82 O2 Sat by Pulse 100 100 97 Oximetry 01/19/20 01/19/20 01/19/20 14:45 15:00 15:15 Temperature Pulse Rate 45 L 47 L 68 Pulse Rate [ From Monitor] Respiratory 20 20 20 Rate Blood Pressure 142/79 141/77 155/87 O2 Sat by Pulse 98 98 99 Oximetry 01/19/20 01/19/20 01/19/20 15:30 15:41 15:45 Temperature Pulse Rate 77 84 Pulse Rate [ From Monitor] Respiratory 20 20 19 Rate Blood Pressure 166/88 186/99 O2 Sat by Pulse 100 100 Oximetry 01/19/20 15:59 Temperature Pulse Rate 58 L Pulse Rate [ From Monitor] Respiratory Rate Blood Pressure 141/77 O2 Sat by Pulse 100 Oximetry - Lab 01/17/20 06:00 01/19/20 04:00 Most recent lab results ABG pH 7.427 pH Units (7.350-7.450) 01/19/20 04:40 ABG pCO2 38.6 mm Hg 01/19/20 04:40 ABG pO2 117.2 mm Hg (80.0-90.0) H 01/19/20 04:40 ABG HCO3 24.9 mmol/L (20.0-26.0) 01/19/20 04:40 ABG O2 Saturation 98.3 % (95.0-99.0) 01/19/20 04:40 Calcium 8.5 mg/dL (8.4-10.2) 01/19/20 04:00 Magnesium 3.00 mg/dL (1.7-2.3) H 01/15/20 14:35 Medications & Allergies - Medications Allergies/Adverse Reactions: Allergies shellfish derived Allergy (Verified 01/11/20 18:37) Swelling Home Medications: Home Medications Medication Instructions Recorded Confirmed Last Taken Type glipiZIDE [Glipizide] 10 mg PO DAILY #30 tablet 08/15/18 01/13/20 Unknown Rx Active Medications: Generic Name Dose Route Start Last Admin Trade Name Freq PRN Reason Stop Dose Admin Acetaminophen 650 mg 01/11/20 18:55 01/19/20 12:23 Tylenol PO 650 mg Q4H PRN Administration Pain MILD(1-3)/Fever >100.5/CORDOVA Lipase/Protease/Amylase 1 each 01/14/20 11:00 Pancreaniceto Marley 10,500 Unit FEEDTUBE PRN PRN For Clogged Feeding Tube Atropine Sulfate 1 mg 01/15/20 12:00 01/18/20 12:19 Atropine 0.1% (Cardiac) IV 1 mg ONCE PRN Administration HR < 40 Dexamethasone 6 mg 01/13/20 12:00 01/19/20 09:37 Decadron IV 01/22/20 10:01 6 mg Q24HR ASHISH Administration Enoxaparin Sodium 120 mg 01/13/20 12:00 01/19/20 09:40 Enoxaparin SUB-Q 120 mg Q12HR ASHISH Administration Famotidine 20 mg 01/13/20 10:00 01/19/20 09:40 Pepcid IV 20 mg BID ASHISH Administration Fentanyl 50 mcg 01/13/20 01:52 01/19/20 11:59 Sublimaze IV 50 mcg Q10MIN PRN Administration ANALGESIA Hydromorphone HCl 0.25 mg 01/11/20 18:59 01/19/20 15:41 Dilaudid IV 0.25 mg Q4H PRN Administration Pain, Moderate (4-6) Hydrophilic Ointment 1 applic 01/13/20 01:52 Vaseline Lip Therapy TP Q2HR PRN Dry Lips Fentanyl Citrate 2,000 mcg in 100 mls @ 5.69 mls/hr 01/13/20 02:00 01/19/20 1 5:43 Fentanyl Drip Premix IV 4 mcg/kg/hr TITR ASHISH 22.76 mls/hr Administration Protocol 1 MCG/KG/HR Midazolam HCl 100 mg/ Sodium 100 mls @ 2 mls/hr 01/13/20 02:00 01/19/20 05:04 Chloride IV 5 mg/hr TITR ASHISH 5 mls/hr Administration Protocol 2 MG/HR Dopamine HCl/Dextrose 800 mg in 250 mls @ 4.425 mls/hr 01/17/20 19:00 Intropin Drip 800 Mg/D5w 250 Ml IV TITR ASHISH Protocol 2 MCG/KG/MIN Insulin Glargine 10 units 01/16/20 10:00 01/19/20 09:40 Lantus SUB-Q 10 units DAILY ASHISH Administration Insulin Human Lispro 0 unit 01/13/20 11:00 01/19/20 12:23 Humalog SUB-Q 4 unit Q6H ASHSIH Administration Protocol Midazolam HCl 2 mg 01/13/20 01:52 Versed IV Q10MIN PRN Sedation Multi-Ingred Cream/Lotion/Oil/Oint 1 applic 01/13/20 01:52 Artificial Tears Ophth Oint OU Q4HR PRN Dry Eye(s) Ondansetron HCl 4 mg 01/11/20 18:55 Zofran IV Q8H PRN Nausea And Vomiting Simple Syrup 15 ml 01/14/20 11:00 Simple Syrup FEEDTUBE PRN PRN Hypoglycemia Simple Syrup 30 ml 01/14/20 11:00 Simple Syrup FEEDTUBE PRN PRN Hypoglycemia Sodium Bicarbonate 325 mg 01/14/20 11:00 Sodium Bicarbonate FEEDTUBE PRN PRN For Clogged Feeding Tube Sodium Chloride 10 ml 01/11/20 22:00 01/19/20 09:41 Sodium Chloride Flush Syringe 10 Ml IV 10 ml BID ASHISH Administration Sodium Chloride 10 ml 01/11/20 18:55 Sodium Chloride Flush Syringe 10 Ml IV PRN PRN LINE FLUSH
[2020-01-19] MEDS ORDERED: hydrALAZINE 20 MG/1 ML INJ IV PRN (16:33)
--- NOTE | 2020-01-19 16:57 | Progress Note ---
Assessment and Plan Acute hypoxemic respiratory failure orally intubated on MVS Severe COVID infection Multifocal pneumonia Extreme obesity ARACELI- vasomotor nephropathy/COVID Thrombocytopenia Hyperglycemia Hypernatremia - stop proning - labetalol 10 mg IV q6h prn SBP > 160 mmHg (hold for pulse < 60) - Vasotech .25 mg IV q6h prn (2 day order) - begin oral hydralazine - reduced set rate to 12/min - introduce Seroquel to spare IV sedation to aid weaning next 24-48 hours - tentatively SBT's from tomorrow - begin Nystatin for oral thrush - continue to avoid Qt prolonging drugs otherwise - continue care as below; - Stopped Propofol since she has had significant bradycardia and use Fentanyl/Midazolam for sedation - NGT/small bowel feeding tube, continue enteric nutrition at goal rate as tolerated - Free water flushes for hypernatremia, monitor closely - continue to avoid nephrotoxins, closely monitor renal function, renally dose all medications - Fluid conservative measures - VAP bundle addressed - CXR, ABG prn - Therapeutic anticoagulation with Lovenox - Permissive hypercapnia is acceptable - continue bronchodilators with pulmonary hygiene per RT - Monitor airway pressures, lung protective strategies - wean off benzodiazepines as soon as possible , reduce the possibility of delirium - prn analgesia per CPOT score - sedation prn for target RASS -2 to -3 - Continue to wean supplemental oxygen for target O2 sats > 92% - conservative fluid management measures as tolerated by hemodynamics and renal function - Bronchodilators with pulmonary hygiene per RT - Antibiotics for CAP , complete course. ID following - Accuchecks with glycemic control per SSI (While critically ill target blood glucose of 140-180 mg/dL; avoid hypoglycemia) - Maintenance of sleep-wake cycle, avoid delirium - Aspiration precautions, HOB >40 - Stress ulcer prophylaxis - Mobility protocol, off loading and skin assessment for pressure ulcer prevention - Monitor hemodynamics closely - Supportive transfusions as indicated to keep HgB >7g/dL COVID SPECIFIC INTERVENTIONS: - Airborne, contact isolation for COVID per facility protocols - IV steroids-dexamethasone - Trend d-dimer,and other inflammatory markers per facility protocol - Evaluate for Convalescent plasma therapy- patient is blood less medicine and will not accept COVID convalescent plasma - complete Remdesivir dosing - completed ceftriaxone 2 gm IV qday and azithromycin 500 mg PO qday for empiric CAP coverage - Monitor QTc Discussed with the ICU team-RT,RN Life threatening condition- COVID 19 ARDS acute hypoxemic respiratory failure on MVS Mortality/Morbidity- High Complexity of medical decision making- High CONDITION: CRITICAL PROGNOSIS: GUARDED CODE STATUS: FULL CODE The high probability of a clinically significant, sudden or life-threatening deterioration of the [respiratory & neurology, renal ] system(s) required my full and direct attention, intervention and personal management. The aggregate critical care time was [36] minutes without overlap. Time includes spent on; [x] Data Review and interpretation [x] Patient assessment and monitoring of vital signs [x] Documentation [x] Medication orders and management Subjective Date of service: 01/19/20 Principal diagnosis: Ac. hypoxemic resp failure; COVID infection; PNA; ARACELI; Thrombocytopenia Interval history: Patient is seen today for: Acute hypoxemic respiratory failure; Severe COVID infection; Multifocal pneumonia; Extreme obesity; ARACELI; Thrombocytopenia Seen and examined at bedside; 24hour events reviewed; nursing and respiratory care staff consulted; no adverse overnight events reported to me; resting peacefully in bed; remains on MVS; BP's running high; FiO2 down to 35%; peep down to 8; no N/V/F/C Objective Vital Signs - 12hr 01/19/20 01/19/20 01/19/20 05:00 05:01 05:15 Temperature Pulse Rate 76 63 60 Pulse Rate [ From Monitor] Respiratory 19 20 Rate Blood Pressure 158/84 158/84 129/69 O2 Sat by Pulse 100 100 100 Oximetry 01/19/20 01/19/20 01/19/20 05:30 05:45 06:00 Temperature Pulse Rate 50 L 52 L 50 L Pulse Rate [ 65 From Monitor] Respiratory 20 20 20 Rate Blood Pressure 128/68 126/68 124/67 O2 Sat by Pulse 100 100 100 Oximetry 01/19/20 01/19/20 01/19/20 06:15 06:30 06:45 Temperature Pulse Rate 49 L 50 L 48 L Pulse Rate [ From Monitor] Respiratory 20 20 20 Rate Blood Pressure 129/69 125/65 128/65 O2 Sat by Pulse 100 100 100 Oximetry 01/19/20 01/19/20 01/19/20 07:00 07:15 07:30 Temperature Pulse Rate 45 L 48 L 46 L Pulse Rate [ From Monitor] Respiratory 20 20 20 Rate Blood Pressure 135/71 130/71 132/73 O2 Sat by Pulse 100 100 100 Oximetry 01/19/20 01/19/20 01/19/20 07:45 08:00 08:15 Temperature 98.5 F Pulse Rate 48 L 48 L 49 L Pulse Rate [ 48 L From Monitor] Respiratory 20 20 20 Rate Blood Pressure 131/72 133/71 127/69 O2 Sat by Pulse 100 100 100 Oximetry 01/19/20 01/19/20 01/19/20 08:30 08:45 09:01 Temperature Pulse Rate 48 L 49 L 92 H Pulse Rate [ From Monitor] Respiratory 20 20 17 Rate Blood Pressure 125/69 126/72 126/72 O2 Sat by Pulse 100 100 100 Oximetry 01/19/20 01/19/20 01/19/20 09:15 09:31 09:45 Temperature Pulse Rate 100 H 90 100 H Pulse Rate [ From Monitor] Respiratory 18 20 9 L Rate Blood Pressure 125/69 146/89 172/98 O2 Sat by Pulse 100 100 100 Oximetry 01/19/20 01/19/20 01/19/20 09:49 10:00 10:15 Temperature Pulse Rate 92 H 90 Pulse Rate [ From Monitor] Respiratory 20 11 L 20 Rate Blood Pressure 161/85 161/84 O2 Sat by Pulse 100 100 Oximetry 01/19/20 01/19/20 01/19/20 10:19 10:30 10:45 Temperature Pulse Rate 107 H 100 H Pulse Rate [ From Monitor] Respiratory 20 20 19 Rate Blood Pressure 140/76 149/84 O2 Sat by Pulse 100 100 Oximetry 01/19/20 01/19/20 01/19/20 11:00 11:05 11:15 Temperature Pulse Rate 73 102 H 82 Pulse Rate [ From Monitor] Respiratory 20 20 Rate Blood Pressure 145/84 161/84 147/83 O2 Sat by Pulse 100 100 100 Oximetry 01/19/20 01/19/20 01/19/20 11:30 11:45 11:59 Temperature Pulse Rate 70 99 H Pulse Rate [ From Monitor] Respiratory 20 14 20 Rate Blood Pressure 160/88 147/83 O2 Sat by Pulse 100 100 Oximetry 01/19/20 01/19/20 01/19/20 12:00 12:01 12:15 Temperature 99.5 F Pulse Rate 57 L 58 L 58 L Pulse Rate [ 57 L From Monitor] Respiratory 20 19 20 Rate Blood Pressure 175/95 167/85 O2 Sat by Pulse 100 100 100 Oximetry 01/19/20 01/19/20 01/19/20 12:30 12:45 12:59 Temperature Pulse Rate 63 69 Pulse Rate [ From Monitor] Respiratory 20 20 20 Rate Blood Pressure 165/80 154/85 O2 Sat by Pulse 100 100 Oximetry 01/19/20 01/19/20 01/19/20 13:00 13:15 13:23 Temperature Pulse Rate 55 L 58 L Pulse Rate [ From Monitor] Respiratory 20 20 20 Rate Blood Pressure 167/89 176/89 O2 Sat by Pulse 100 100 Oximetry 01/19/20 01/19/20 01/19/20 13:30 13:31 13:45 Temperature Pulse Rate 113 H 129 H 96 H Pulse Rate [ From Monitor] Respiratory 16 19 Rate Blood Pressure 173/95 176/89 176/89 O2 Sat by Pulse 100 98 100 Oximetry 01/19/20 01/19/20 01/19/20 14:01 14:17 14:30 Temperature Pulse Rate 87 58 L 48 L Pulse Rate [ From Monitor] Respiratory 21 20 20 Rate Blood Pressure 173/95 144/82 O2 Sat by Pulse 100 100 97 Oximetry 01/19/20 01/19/20 01/19/20 14:45 15:00 15:15 Temperature Pulse Rate 45 L 47 L 68 Pulse Rate [ From Monitor] Respiratory 20 20 20 Rate Blood Pressure 142/79 141/77 155/87 O2 Sat by Pulse 98 98 99 Oximetry 01/19/20 01/19/20 01/19/20 15:30 15:41 15:45 Temperature Pulse Rate 77 84 Pulse Rate [ From Monitor] Respiratory 20 20 19 Rate Blood Pressure 166/88 186/99 O2 Sat by Pulse 100 100 Oximetry 01/19/20 01/19/20 01/19/20 15:59 16:00 16:11 Temperature 97.4 F L Pulse Rate 58 L 76 Pulse Rate [ 85 From Monitor] Respiratory 19 20 Rate Blood Pressure 141/77 185/101 O2 Sat by Pulse 100 100 Oximetry 01/19/20 01/19/20 16:15 16:30 Temperature Pulse Rate 127 H 76 Pulse Rate [ From Monitor] Respiratory 19 20 Rate Blood Pressure 162/117 189/101 O2 Sat by Pulse 100 98 Oximetry Constitutional: no acute distress, other (Morbidly obese AAW, supine ETT 7.5 at 23cm CHAD) Eyes: non-icteric ENT: oropharynx moist, other (ETT 24 cm CHAD) Neck: supple, no lymphadenopathy, no JVD Effort: mildly labored Ascultation: Bilateral: diminished breath sounds, rhonchi Percussion: Bilateral: not dull Cardiovascular: regular rate and rhythm, other Gastrointestinal: normoactive bowel sounds, soft, non-tender, non-distended (protuberant) Integumentary: normal Extremities: no cyanosis, pulses normal, no ischemia or petechiae, edema (trace) Neurologic: non-focal exam (grossly), pupils equal and round, CN II-XII normal, motor strength normal and, unable to assess Psychiatric: mood appropriate, affect normal CBC and BMP: 01/17/20 06:00 01/19/20 04:00 ABG, PT/INR, D-dimer: ABG ABG pH 7.427 pH Units (7.350-7.450) 01/19/20 04:40 POC ABG pCO2 33.9 mmHg (32.0-48.0) 01/16/20 03:33 ABG pCO2 38.6 mm Hg 01/19/20 04:40 POC ABG pO2 86.3 mmHg (83-108) 01/16/20 03:33 ABG pO2 117.2 mm Hg (80.0-90.0) H 01/19/20 04:40 POC ABG HCO3 24.5 01/16/20 03:33 ABG O2 Saturation 98.3 % (95.0-99.0) 01/19/20 04:40 PT/INR, D-dimer D-Dimer 1878.79 ng/mlDDU (0-234) H 01/17/20 13:40 Abnormal lab findings: Abnormal Labs 01/11/20 01/11/20 01/11/20 17:22 17:22 17:22 WBC RBC MCV MCH RDW Plt Count Lymph % (Auto) [place] # Seg Neutrophils % Seg Neuts % (Manual) Lymphocytes % (Manual) Seg Neutrophils # Seg Neutrophils # Man Lymphocytes # (Manual) D-Dimer 622.52 H ABG pH POC ABG pCO2 POC ABG pO2 ABG pO2 ABG O2 Saturation ABG Base Excess ABG Oxyhemoglobin ABG Hemoglobin Oxyhemoglobin Sodium Potassium Chloride 97.6 L Carbon Dioxide 18 L BUN Creatinine Glucose 199 H POC Glucose Lactic Acid 2.20 H* Ferritin AST 68 H Magnesium Lactate Dehydrogenase C-Reactive Protein Total Protein Albumin 3.0 L Zjmux-1-Trrxpdbvk Nheyj-6-Ppcvjtlwg PEP Interpretation Triglycerides TSH Complement C4 Coronavirus (PCR) 01/11/20 01/11/20 01/11/20 17:22 17:22 23:29 WBC RBC MCV MCH RDW Plt Count Lymph % (Auto) [place] # Seg Neutrophils % Seg Neuts % (Manual) Lymphocytes % (Manual) Seg Neutrophils # Seg Neutrophils # Man Lymphocytes # (Manual) D-Dimer ABG pH POC ABG pCO2 POC ABG pO2 ABG pO2 ABG O2 Saturation ABG Base Excess ABG Oxyhemoglobin ABG Hemoglobin Oxyhemoglobin Sodium Potassium Chloride Carbon Dioxide BUN Creatinine Glucose 202 H POC Glucose Lactic Acid 2.10 H* Ferritin 270.3 H AST Magnesium Lactate Dehydrogenase 610 H C-Reactive Protein 23.80 H Total Protein Albumin Vycze-5-Gozandour Szhkd-6-Tjzmqmaxp PEP Interpretation Triglycerides TSH Complement C4 Coronavirus (PCR) 01/12/20 01/12/20 01/12/20 07:07 07:07 09:00 WBC RBC 5.31 H MCV 76 L MCH 25 L RDW 15.5 H Plt Count Lymph % (Auto) 11.2 L [place] # Seg Neutrophils % 85.2 H Seg Neuts % (Manual) Lymphocytes % (Manual) Seg Neutrophils # 9.2 H Seg Neutrophils # Man Lymphocytes # (Manual) D-Dimer ABG pH POC ABG pCO2 POC ABG pO2 ABG pO2 ABG O2 Saturation ABG Base Excess ABG Oxyhemoglobin ABG Hemoglobin Oxyhemoglobin Sodium Potassium Chloride Carbon Dioxide 21 L BUN 23 H Creatinine Glucose 206 H POC Glucose Lactic Acid Ferritin AST Magnesium Lactate Dehydrogenase C-Reactive Protein Total Protein Albumin Mklwr-1-Lgsjaevjp Heqyl-4-Mvivxefax PEP Interpretation Triglycerides TSH Complement C4 Coronavirus (PCR) Positive A 01/13/20 01/13/20 01/13/20 01:02 04:45 05:10 WBC RBC MCV MCH RDW Plt Count Lymph % (Auto) [place] # Seg Neutrophils % Seg Neuts % (Manual) Lymphocytes % (Manual) Seg Neutrophils # Seg Neutrophils # Man Lymphocytes # (Manual) D-Dimer > 68716 H ABG pH 7.19 L POC ABG pCO2 56.2 H POC ABG pO2 44.3 L 62.5 L ABG pO2 ABG O2 Saturation ABG Base Excess ABG Oxyhemoglobin 77.5 L 86.5 L ABG Hemoglobin Oxyhemoglobin Sodium Potassium Chloride Carbon Dioxide BUN Creatinine Glucose POC Glucose Lactic Acid Ferritin AST Magnesium Lactate Dehydrogenase C-Reactive Protein Total Protein Albumin Udolg-9-Qsqbofhgz Ardxy-0-Wmlnktifp PEP Interpretation Triglycerides TSH Complement C4 Coronavirus (PCR) 01/13/20 01/13/20 01/13/20 05:10 05:54 12:07 WBC RBC MCV MCH RDW Plt Count Lymph % (Auto) [place] # Seg Neutrophils % Seg Neuts % (Manual) Lymphocytes % (Manual) Seg Neutrophils # Seg Neutrophils # Man Lymphocytes # (Manual) D-Dimer ABG pH POC ABG pCO2 POC ABG pO2 ABG pO2 ABG O2 Saturation ABG Base Excess ABG Oxyhemoglobin ABG Hemoglobin Oxyhemoglobin Sodium Potassium Chloride Carbon Dioxide BUN Creatinine Glucose POC Glucose 356 H 309 H Lactic Acid Ferritin AST Magnesium Lactate Dehydrogenase 999 H C-Reactive Protein Total Protein Albumin Ojecs-4-Atmdtjymk Nmhrw-3-Edxajyfyx PEP Interpretation Triglycerides TSH Complement C4 Coronavirus (PCR) 01/13/20 01/13/20 01/13/20 12:54 18:46 18:50 WBC 14.0 H RBC MCV 76 L MCH 25 L RDW 15.8 H Plt Count 113 L Lymph % (Auto) [place] # Seg Neutrophils % Seg Neuts % (Manual) 88.0 H Lymphocytes % (Manual) 2.0 L Seg Neutrophils # Seg Neutrophils # Man 12.3 H Lymphocytes # (Manual) 0.3 L D-Dimer ABG pH 7.290 L POC ABG pCO2 POC ABG pO2 ABG pO2 60.2 L ABG O2 Saturation 88.6 L ABG Base Excess -2.7 L ABG Oxyhemoglobin ABG Hemoglobin Oxyhemoglobin 87.1 L Sodium Potassium Chloride Carbon Dioxide BUN Creatinine Glucose POC Glucose 268 H Lactic Acid Ferritin AST Magnesium Lactate Dehydrogenase C-Reactive Protein Total Protein Albumin Nwiwv-5-Nxtgnmfzb Evmiu-8-Ypwtnwtra PEP Interpretation Triglycerides TSH Complement C4 Coronavirus (PCR) 01/13/20 01/14/20 01/14/20 23:53 00:31 03:13 WBC RBC MCV MCH RDW Plt Count Lymph % (Auto) [place] # Seg Neutrophils % Seg Neuts % (Manual) Lymphocytes % (Manual) Seg Neutrophils # Seg Neutrophils # Man Lymphocytes # (Manual) D-Dimer ABG pH POC ABG pCO2 POC ABG pO2 ABG pO2 132.6 H ABG O2 Saturation ABG Base Excess -2.7 L ABG Oxyhemoglobin ABG Hemoglobin Oxyhemoglobin Sodium Potassium 5.3 H Chloride Carbon Dioxide BUN 55 H Creatinine 1.6 H Glucose 268 H POC Glucose 259 H Lactic Acid Ferritin AST 46 H Magnesium Lactate Dehydrogenase C-Reactive Protein Total Protein 6.1 L Albumin 3.1 L Fqbro-0-Brfgxtxlu Imftt-3-Zihrklzkw PEP Interpretation Triglycerides TSH Complement C4 Coronavirus (PCR) 01/14/20 01/14/20 01/14/20 05:23 06:06 09:47 WBC RBC MCV MCH RDW Plt Count Lymph % (Auto) [place] # Seg Neutrophils % Seg Neuts % (Manual) Lymphocytes % (Manual) Seg Neutrophils # Seg Neutrophils # Man Lymphocytes # (Manual) D-Dimer > 65324 H ABG pH POC ABG pCO2 POC ABG pO2 ABG pO2 ABG O2 Saturation ABG Base Excess ABG Oxyhemoglobin ABG Hemoglobin Oxyhemoglobin Sodium Potassium 5.5 H Chloride 107.6 H Carbon Dioxide 21 L BUN 58 H Creatinine 1.7 H Glucose 231 H POC Glucose 231 H Lactic Acid Ferritin AST Magnesium Lactate Dehydrogenase C-Reactive Protein Total Protein Albumin Hewew-8-Ssoskdxkh Stdbv-6-Bokmhruvu PEP Interpretation Triglycerides TSH Complement C4 Coronavirus (PCR) 01/14/20 01/14/20 01/14/20 09:47 12:20 16:00 WBC RBC MCV MCH RDW Plt Count Lymph % (Auto) [place] # Seg Neutrophils % Seg Neuts % (Manual) Lymphocytes % (Manual) Seg Neutrophils # Seg Neutrophils # Man Lymphocytes # (Manual) D-Dimer ABG pH POC ABG pCO2 POC ABG pO2 ABG pO2 69.3 L ABG O2 Saturation 94.4 L ABG Base Excess ABG Oxyhemoglobin ABG Hemoglobin Oxyhemoglobin 92.7 L Sodium Potassium Chloride 107.2 H Carbon Dioxide 21 L BUN 63 H Creatinine 1.5 H Glucose 217 H POC Glucose 238 H Lactic Acid Ferritin AST Magnesium Lactate Dehydrogenase C-Reactive Protein Total Protein 6.0 L Albumin 2.7 L Xnqke-9-Bkzksqufc Ousrt-6-Djewoidnt PEP Interpretation Triglycerides TSH Complement C4 Coronavirus (PCR) 01/14/20 01/14/20 01/14/20 18:24 19:01 23:50 WBC RBC MCV MCH RDW Plt Count Lymph % (Auto) [place] # Seg Neutrophils % Seg Neuts % (Manual) Lymphocytes % (Manual) Seg Neutrophils # Seg Neutrophils # Man Lymphocytes # (Manual) D-Dimer ABG pH POC ABG pCO2 POC ABG pO2 ABG pO2 ABG O2 Saturation ABG Base Excess ABG Oxyhemoglobin ABG Hemoglobin Oxyhemoglobin Sodium 146 H Potassium 5.9 H Chloride 108.0 H Carbon Dioxide 20 L BUN 61 H Creatinine 1.4 H Glucose 254 H POC Glucose 228 H 321 H Lactic Acid Ferritin AST Magnesium Lactate Dehydrogenase C-Reactive Protein Total Protein Albumin [place]-7-Kjxaebabq Szqis-9-Hzriasgpg PEP Interpretation Triglycerides TSH Complement C4 Coronavirus (PCR) 01/14/20 01/14/20 01/15/20 Unknown Unknown 03:37 WBC RBC MCV MCH RDW Plt Count Lymph % (Auto) [place] # Seg Neutrophils % Seg Neuts % (Manual) Lymphocytes % (Manual) Seg Neutrophils # Seg Neutrophils # Man Lymphocytes # (Manual) D-Dimer ABG pH 7.480 H POC ABG pCO2 POC ABG pO2 76.7 L ABG pO2 ABG O2 Saturation ABG Base Excess ABG Oxyhemoglobin ABG Hemoglobin Oxyhemoglobin Sodium Potassium Chloride Carbon Dioxide BUN Creatinine Glucose POC Glucose Lactic Acid Ferritin AST Magnesium Lactate Dehydrogenase C-Reactive Protein Total Protein Albumin 2.8 L Vltrl-3-Iythudbdl 0.6 H Cjoat-6-Qzhclbjae 1.1 H PEP Interpretation see below H Triglycerides TSH Complement C4 76 H Coronavirus (PCR) 01/15/20 01/15/20 01/15/20 03:57 03:57 05:50 WBC 14.9 H RBC MCV 75 L MCH 25 L RDW 15.4 H Plt Count Lymph % (Auto) 8.6 L [place] # 1.0 H Seg Neutrophils % 84.2 H Seg Neuts % (Manual) Lymphocytes % (Manual) Seg Neutrophils # 12.5 H Seg Neutrophils # Man Lymphocytes # (Manual) D-Dimer ABG pH POC ABG pCO2 POC ABG pO2 ABG pO2 ABG O2 Saturation ABG Base Excess ABG Oxyhemoglobin ABG Hemoglobin Oxyhemoglobin Sodium 152 H Potassium Chloride 113.0 H Carbon Dioxide BUN 52 H Creatinine Glucose 288 H POC Glucose 259 H Lactic Acid Ferritin AST Magnesium Lactate Dehydrogenase C-Reactive Protein Total Protein Albumin Mimcs-3-Qzzehnsmj Yraem-3-Kxhyxyqag PEP Interpretation Triglycerides TSH Complement C4 Coronavirus (PCR) 01/15/20 01/15/20 01/15/20 11:56 14:35 14:35 WBC RBC MCV MCH RDW Plt Count Lymph % (Auto) [place] # Seg Neutrophils % Seg Neuts % (Manual) Lymphocytes % (Manual) Seg Neutrophils # Seg Neutrophils # Man Lymphocytes # (Manual) D-Dimer ABG pH POC ABG pCO2 POC ABG pO2 ABG pO2 ABG O2 Saturation ABG Base Excess ABG Oxyhemoglobin ABG Hemoglobin Oxyhemoglobin Sodium Potassium Chloride Carbon Dioxide BUN Creatinine Glucose POC Glucose 162 H Lactic Acid Ferritin 332.4 H AST Magnesium Lactate Dehydrogenase 747 H C-Reactive Protein 7.60 H Total Protein Albumin Vjcgl-0-Sldsyielb Hdshc-0-Gpikoesbu PEP Interpretation Triglycerides TSH Complement C4 Coronavirus (PCR) 01/15/20 01/15/20 01/15/20 14:35 14:35 16:18 WBC RBC MCV MCH RDW Plt Count Lymph % (Auto) [place] # Seg Neutrophils % Seg Neuts % (Manual) Lymphocytes % (Manual) Seg Neutrophils # Seg Neutrophils # Man Lymphocytes # (Manual) D-Dimer ABG pH 7.510 H POC ABG pCO2 POC ABG pO2 76.6 L ABG pO2 ABG O2 Saturation ABG Base Excess ABG Oxyhemoglobin ABG Hemoglobin Oxyhemoglobin Sodium Potassium Chloride Carbon Dioxide BUN Creatinine Glucose POC Glucose Lactic Acid Ferritin AST Magnesium 3.00 H Lactate Dehydrogenase C-Reactive Protein Total Protein Albumin Vxcls-4-Ptaarbwmx Ekxdf-5-Gddzbfevp PEP Interpretation Triglycerides TSH 0.221 L Complement C4 Coronavirus (PCR) 01/15/20 01/15/20 01/16/20 17:31 23:26 03:33 WBC RBC MCV MCH RDW Plt Count Lymph % (Auto) [place] # Seg Neutrophils % Seg Neuts % (Manual) Lymphocytes % (Manual) Seg Neutrophils # Seg Neutrophils # Man Lymphocytes # (Manual) D-Dimer ABG pH 7.477 H POC ABG pCO2 POC ABG pO2 ABG pO2 ABG O2 Saturation ABG Base Excess ABG Oxyhemoglobin ABG Hemoglobin Oxyhemoglobin Sodium Potassium Chloride Carbon Dioxide BUN Creatinine Glucose POC Glucose 239 H 226 H Lactic Acid Ferritin AST Magnesium Lactate Dehydrogenase C-Reactive Protein Total Protein Albumin Rznaq-6-Wpfspoqjw Egyec-3-Uffgzwobv PEP Interpretation Triglycerides TSH Complement C4 Coronavirus (PCR) 01/16/20 01/16/20 01/16/20 04:00 04:00 05:45 WBC 13.6 H RBC MCV 74 L MCH 25 L RDW 15.4 H Plt Count Lymph % (Auto) [place] # Seg Neutrophils % Seg Neuts % (Manual) 91.0 H Lymphocytes % (Manual) 5.0 L Seg Neutrophils # Seg Neutrophils # Man 12.4 H Lymphocytes # (Manual) 0.7 L D-Dimer ABG pH POC ABG pCO2 POC ABG pO2 ABG pO2 ABG O2 Saturation ABG Base Excess ABG Oxyhemoglobin ABG Hemoglobin Oxyhemoglobin Sodium 151 H Potassium Chloride 113.8 H Carbon Dioxide BUN 45 H Creatinine Glucose 213 H POC Glucose 202 H Lactic Acid Ferritin AST Magnesium Lactate Dehydrogenase C-Reactive Protein Total Protein Albumin Gcick-8-Efoxziyjq Acwfw-0-Vfryogsbb PEP Interpretation Triglycerides TSH Complement C4 Coronavirus (PCR) 01/16/20 01/16/20 01/17/20 12:02 17:27 00:07 WBC RBC MCV MCH RDW Plt Count Lymph % (Auto) [place] # Seg Neutrophils % Seg Neuts % (Manual) Lymphocytes % (Manual) Seg Neutrophils # Seg Neutrophils # Man Lymphocytes # (Manual) D-Dimer ABG pH POC ABG pCO2 POC ABG pO2 ABG pO2 ABG O2 Saturation ABG Base Excess ABG Oxyhemoglobin ABG Hemoglobin Oxyhemoglobin Sodium Potassium Chloride Carbon Dioxide BUN Creatinine Glucose POC Glucose 186 H 240 H 207 H Lactic Acid Ferritin AST Magnesium Lactate Dehydrogenase C-Reactive Protein Total Protein Albumin Mklgx-5-Hotkwxfat Syjbu-3-Zthqpipsg PEP Interpretation Triglycerides TSH Complement C4 Coronavirus (PCR) 01/17/20 01/17/20 01/17/20 04:50 05:46 06:00 WBC 11.5 H RBC MCV 75 L MCH 25 L RDW 15.5 H Plt Count Lymph % (Auto) [place] # Seg Neutrophils % Seg Neuts % (Manual) 81.0 H Lymphocytes % (Manual) 10.0 L Seg Neutrophils # Seg Neutrophils # Man 9.3 H Lymphocytes # (Manual) D-Dimer ABG pH 7.494 H POC ABG pCO2 POC ABG pO2 ABG pO2 73.4 L ABG O2 Saturation ABG Base Excess ABG Oxyhemoglobin ABG Hemoglobin Oxyhemoglobin 94.4 L Sodium Potassium Chloride Carbon Dioxide BUN Creatinine Glucose POC Glucose 170 H Lactic Acid Ferritin AST Magnesium Lactate Dehydrogenase C-Reactive Protein Total Protein Albumin Rpmzg-1-Eklarrliy Mzdaq-4-Witukymdu PEP Interpretation Triglycerides TSH Complement C4 Coronavirus (PCR) 01/17/20 01/17/20 01/17/20 06:00 11:32 13:40 WBC RBC MCV MCH RDW Plt Count Lymph % (Auto) [place] # Seg Neutrophils % Seg Neuts % (Manual) Lymphocytes % (Manual) Seg Neutrophils # Seg Neutrophils # Man Lymphocytes # (Manual) D-Dimer 1878.79 H ABG pH POC ABG pCO2 POC ABG pO2 ABG pO2 ABG O2 Saturation ABG Base Excess ABG Oxyhemoglobin ABG Hemoglobin Oxyhemoglobin Sodium 151 H Potassium Chloride 113.6 H Carbon Dioxide BUN 40 H Creatinine Glucose 149 H POC Glucose 229 H Lactic Acid Ferritin AST Magnesium Lactate Dehydrogenase C-Reactive Protein Total Protein Albumin Qnvdn-1-Qsfhhirjk Cngpv-5-Wwbezjsri PEP Interpretation Triglycerides TSH Complement C4 Coronavirus (PCR) 01/17/20 01/17/20 01/17/20 13:40 13:40 17:45 WBC RBC MCV MCH RDW Plt Count Lymph % (Auto) [place] # Seg Neutrophils % Seg Neuts % (Manual) Lymphocytes % (Manual) Seg Neutrophils # Seg Neutrophils # Man Lymphocytes # (Manual) D-Dimer ABG pH POC ABG pCO2 POC ABG pO2 ABG pO2 ABG O2 Saturation ABG Base Excess ABG Oxyhemoglobin ABG Hemoglobin Oxyhemoglobin Sodium Potassium Chloride Carbon Dioxide BUN Creatinine Glucose POC Glucose 364 H Lactic Acid Ferritin 322.8 H AST Magnesium Lactate Dehydrogenase 587 H C-Reactive Protein 4.60 H Total Protein Albumin Pjfur-3-Ajxtepgtw Fetcp-9-Otcfbhrrz PEP Interpretation Triglycerides TSH Complement C4 Coronavirus (PCR) 01/17/20 01/17/20 01/18/20 21:30 23:53 03:40 WBC RBC MCV MCH RDW Plt Count Lymph % (Auto) [place] # Seg Neutrophils % Seg Neuts % (Manual) Lymphocytes % (Manual) Seg Neutrophils # Seg Neutrophils # Man Lymphocytes # (Manual) D-Dimer ABG pH POC ABG pCO2 POC ABG pO2 ABG pO2 179.6 H 162.6 H ABG O2 Saturation 99.2 H ABG Base Excess ABG Oxyhemoglobin ABG Hemoglobin 11.8 L Oxyhemoglobin Sodium Potassium Chloride Carbon Dioxide BUN Creatinine Glucose POC Glucose 272 H Lactic Acid Ferritin AST Magnesium Lactate Dehydrogenase C-Reactive Protein Total Protein Albumin Flrsi-7-Axzwkznir Tbizc-2-Czgdgtfun PEP Interpretation Triglycerides TSH Complement C4 Coronavirus (PCR) 01/18/20 01/18/20 01/18/20 04:00 05:00 05:54 WBC RBC MCV MCH RDW Plt Count Lymph % (Auto) [place] # Seg Neutrophils % Seg Neuts % (Manual) Lymphocytes % (Manual) Seg Neutrophils # Seg Neutrophils # Man Lymphocytes # (Manual) D-Dimer ABG pH POC ABG pCO2 POC ABG pO2 ABG pO2 ABG O2 Saturation ABG Base Excess ABG Oxyhemoglobin ABG Hemoglobin Oxyhemoglobin Sodium 150 H Potassium Chloride 113.4 H Carbon Dioxide BUN 44 H Creatinine Glucose 268 H POC Glucose 271 H Lactic Acid Ferritin AST Magnesium Lactate Dehydrogenase C-Reactive Protein Total Protein Albumin Wmbnz-3-Cfqttyfpj Nwfqt-4-Jfpyzvldf PEP Interpretation Triglycerides 198 H TSH Complement C4 Coronavirus (PCR) 01/18/20 01/18/20 01/19/20 11:21 17:27 00:12 WBC RBC MCV MCH RDW Plt Count Lymph % (Auto) [place] # Seg Neutrophils % Seg Neuts % (Manual) Lymphocytes % (Manual) Seg Neutrophils # Seg Neutrophils # Man Lymphocytes # (Manual) D-Dimer ABG pH POC ABG pCO2 POC ABG pO2 ABG pO2 ABG O2 Saturation ABG Base Excess ABG Oxyhemoglobin ABG Hemoglobin Oxyhemoglobin Sodium Potassium Chloride Carbon Dioxide BUN Creatinine Glucose POC Glucose 244 H 232 H 143 H Lactic Acid Ferritin AST Magnesium Lactate Dehydrogenase C-Reactive Protein Total Protein Albumin Xnicb-7-Mfnuhwjfm Scxxf-1-Oothxdvxq PEP Interpretation Triglycerides TSH Complement C4 Coronavirus (PCR) 01/19/20 01/19/20 01/19/20 04:00 04:40 05:41 WBC RBC MCV MCH RDW Plt Count Lymph % (Auto) [place] # Seg Neutrophils % Seg Neuts % (Manual) Lymphocytes % (Manual) Seg Neutrophils # Seg Neutrophils # Man Lymphocytes # (Manual) D-Dimer ABG pH POC ABG pCO2 POC ABG pO2 ABG pO2 117.2 H ABG O2 Saturation ABG Base Excess ABG Oxyhemoglobin ABG Hemoglobin 9.7 L Oxyhemoglobin Sodium 146 H Potassium Chloride 111.3 H Carbon Dioxide BUN 38 H Creatinine Glucose 168 H POC Glucose 171 H Lactic Acid Ferritin AST Magnesium Lactate Dehydrogenase C-Reactive Protein Total Protein Albumin Ybdlv-5-Btpaudcje Nnlep-9-Nciivrgfq PEP Interpretation Triglycerides TSH Complement C4 Coronavirus (PCR) 01/19/20 12:02 WBC RBC MCV MCH RDW Plt Count Lymph % (Auto) [place] # Seg Neutrophils % Seg Neuts % (Manual) Lymphocytes % (Manual) Seg Neutrophils # Seg Neutrophils # Man Lymphocytes # (Manual) D-Dimer ABG pH POC ABG pCO2 POC ABG pO2 ABG pO2 ABG O2 Saturation ABG Base Excess ABG Oxyhemoglobin ABG Hemoglobin Oxyhemoglobin Sodium Potassium Chloride Carbon Dioxide BUN Creatinine Glucose POC Glucose 208 H Lactic Acid Ferritin AST Magnesium Lactate Dehydrogenase C-Reactive Protein Total Protein Albumin Ohrfk-8-Opkmxwjhy Mdxgz-2-Ispboqvsb PEP Interpretation Triglycerides TSH Complement C4 Coronavirus (PCR) Chest x-ray: image reviewed (R>L basilar infiltrates) Allied health notes reviewed: nursing
[2020-01-19] MEDS: ENALAPRILAT 2.5 MG/2 ML INJ IV PRN (17:56)
[2020-01-19] MEDS: hydrALAZINE 25 MG TAB PO SCH ×2 (18:01→23:00)
[2020-01-19] MEDS ORDERED: LIPASE 10,500/PROTEASE 25,000/AMYLASE 43,750 (UNITS) DR CAP FEEDTUBE PRN (18:10)
[2020-01-19] MEDS ORDERED: SODIUM BICARBONATE 325 MG TAB FEEDTUBE PRN (18:10)
[2020-01-19] MEDS ORDERED: SIMPLE SYRUP 15 ML FEEDTUBE PRN ×2 (18:10)
--- NOTE | 2020-01-19 19:21 | XRay Report ---
CHEST 1 VIEW 1620 INDICATION / CLINICAL INFORMATION: follow up respiratory failure COMPARISON: 01/18/2020 FINDINGS: SUPPORT DEVICES: The endotracheal tube tip now appears to be at the etienne. Withdrawal by 2 to 3 cm i s suggested. Other device positioning appears unchanged. HEART / MEDIASTINUM: Stable LUNGS / PLEURA: Right basilar atelectasis and possible pneumonitis are mildly worse. Very poor degree of inspiration is seen. No pneumothorax. ADDITIONAL FINDINGS: No significant additional findings. 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
[2020-01-20] MEDS: INSULIN LISPRO 100 UNIT/ML VIAL 3 mL SUB-Q SCH ×5 (00:34→22:52)
[2020-01-20] MEDS: MIDAZOLAM 100 MG in SODIUM CHLORIDE 0.9% 80 ML IV SCH ×2 (01:10→20:44)
[2020-01-20] MEDS: fentaNYL DRIP Premix 2,000 MCG/100 ML BAG IV SCH ×5 (04:16→22:45)
[2020-01-20 04:34] LABS: ABG Base Excess 1.3 mmol/L (-2.0-3.0); ABG HCO3 26.8 mmol/L (20.0-26.0); ABG Methemoglobin 0.5 % (0.0-1.5); ABG Oxygen Saturation 96.5 % (95.0-99.0); ABG PCO2 46.1 mm Hg; ABG PH 7.382 pH Units (7.350-7.450); ABG PO2 81.7 mm Hg (80.0-90.0)
--- NOTE | 2020-01-20 05:17 | XRay Report ---
CHEST 1 VIEW 01/20/2020 4:06 AM INDICATION / CLINICAL INFORMATION: follow up respiratory failure. COMPARISON: 01/19/2020 FINDINGS: SUPPORT DEVICES: Stable, satisfactory device positioning. HEART / MEDIASTINUM: Stable. LUNGS / PLEURA: Stable bibasilar pulmonary opacities. No pneumothorax. ADDITIONAL FINDINGS: No significant additional findings. IMPRESSION: 1. No significant change. Signer Name: Huey Acevedo MD Signed: 01/20/2020 5:12 AM Workstation Name: [email or web address]
[2020-01-20] MEDS: hydrALAZINE 25 MG TAB PO SCH ×3 (06:07→22:02)
[2020-01-20] MEDS: FAMOTIDINE 20 MG/2 ML INJ IV SCH ×2 (09:45→22:01)
[2020-01-20] MEDS: INSULIN GLARGINE 100 UNITS/ML SUB-Q SCH (09:45)
[2020-01-20] MEDS: dexAMETHasone 4 MG/ML VIAL IV SCH (09:46)
[2020-01-20] MEDS: ACETAMINOPHEN 325 MG TAB PO PRN ×2 (09:46→16:49)
[2020-01-20] MEDS: ENOXAPARIN 120 MG/0.8 ML INJ SUB-Q SCH ×2 (09:47→21:59)
--- NOTE | 2020-01-20 10:00 | Progress Note ---
Assessment and Plan Cultures: Blood culture 01/11/2020 no growth today Urine culture 01/11/2020 10-100,000 normal skin cristina Tracheal aspirate a 01/13/2020 no growth A/P: 39-year-old female past medical history morbid obesity, diabetes admitted with severe COVID-19 pneumonia. #Sepsis: Fever resolved, leukocytosis up likely due to steroids, now better. #Acute hypoxemic respiratory failure: Likely secondary to COVID-19 infection. remains mechanically ventilated on minimal settings #COVID-19 pneumonia: Very high ddimer. Elevated markers, ferritin went up, CRP down. Completed ceftriaxone. Completed remdesivir. Markers are slowly improving. Ddimer improving. #Morbid obesity: BMI=52. Associated with worse COVID-19 outcomes #Transaminitis: Likely related to COVID-19. Improving. #Bacteriuria, urine analysis not consistent with UTI #ARACELI: Resolved #Bradycardia: Resolved 24 hours after completing Remdesivir. Likely drug induced, there are some cases of bradycardia associated with Remdesivir. Asked PharmD to report this to [email or web address]. Recs: -Continue dexamethasone 6 mg IV/PO daily to complete 10 days -day 8 of 10 -Obtain daily inflammatory markers - ferritin, Ddimer, CRP, LDH today -Anticoagulation per [facility] protocol - agree with full dose anticoagulation-ddimer>10,000 Dr. Song is rounding on Tuesday. Jenifer Robertson MD [facility] ([facility]) Office [phone] Subjective Date of service: 01/20/20 Principal diagnosis: Ac. hypoxemic resp failure; COVID infection; PNA; ARACELI; Thrombocytopenia Interval history: Remains on the ventilator, bradycardic on monitor no fever, currently proned Objective - Constitutional Vitals: Vital Signs Temp Pulse Resp BP Pulse Ox 99.5 F 110 H 15 112/63 99 01/20/20 08:00 01/20/20 09:30 01/20/20 09:46 01/20/20 09:30 01/20/20 09:30 Temperature -Last 24 Hours Temperature 99.5 F Temperature 98.9 F Temperature 98.9 F Temperature 98.8 F Temperature 97.4 F Temperature 99.5 F - Labs CBC & Chem 7: 01/17/20 06:00 01/19/20 04:00 Labs: Abnormal lab results 01/19/20 01/19/20 01/20/20 Range/Units 12:02 18:13 00:13 ABG HCO3 (20.0-26.0) mmol/L ABG Hemoglobin (12.0-16.0) gm/dl Oxyhemoglobin (95.0-99.0) % POC Glucose 208 H 272 H 223 H (70-105) 01/20/20 01/20/20 Range/Units 04:21 05:30 ABG HCO3 26.8 H (20.0-26.0) mmol/L ABG Hemoglobin 10.7 L (12.0-16.0) gm/dl Oxyhemoglobin 94.3 L (95.0-99.0) % POC Glucose 129 H (70-105)
--- NOTE | 2020-01-20 10:28 | Progress Note ---
Subjective Date of service: 01/20/20 Principal diagnosis: Ac. hypoxemic resp failure; COVID infection; PNA; ARACELI; Thrombocytopenia Interval history: Assessment and Plan Sinus bradycardia, now improved HR 81 sinus likely likely secondary to IV dexamethasone. We have been noticing increased evidence of bradycardia with patient receiving dexamethasone Hemodynamically stable no further cardiac work-up TSH 0.221 COVID -19 viral pneumonia Respiratory failure Diabetes Conservative cardiac management. Objective Vital Signs Temp Pulse Pulse Resp BP Pulse Ox 01/20/20 09:46 15 01/20/20 09:30 110 H 16 112/63 99 01/20/20 09:15 103 H 14 124/59 100 01/20/20 09:00 115 H 14 114/67 100 01/20/20 08:45 95 H 12 123/67 100 01/20/20 08:30 108 H 14 124/64 100 01/20/20 08:15 107 H 16 118/59 100 01/20/20 08:00 99.5 F 82 71 13 104/50 100 01/20/20 07:45 68 12 101/52 100 01/20/20 07:30 71 12 106/57 100 01/20/20 07:15 66 12 98/54 100 01/20/20 07:07 68 97/52 100 01/20/20 07:00 69 12 97/52 100 01/20/20 06:45 70 12 99/49 100 01/20/20 06:30 75 12 97/47 100 01/20/20 06:15 78 11 L 98/49 100 01/20/20 06:00 79 11 L 101/54 100 01/20/20 05:45 83 12 109/55 100 01/20/20 05:30 93 H 12 116/65 100 01/20/20 05:15 89 12 127/73 100 01/20/20 05:00 92 H 12 125/74 100 01/20/20 04:45 111 H 17 146/94 100 01/20/20 04:30 102 H 13 127/81 99 01/20/20 04:15 92 H 18 148/92 100 01/20/20 04:08 110 H 148/92 100 01/20/20 04:00 72 86 12 108/59 100 01/20/20 03:45 71 12 104/52 100 01/20/20 03:30 71 13 104/52 100 01/20/20 03:15 76 15 103/48 100 01/20/20 03:04 98.9 F 01/20/20 03:00 74 12 96/46 99 01/20/20 02:45 72 12 99/50 100 01/20/20 02:30 67 12 105/51 100 01/20/20 02:15 64 12 106/54 100 01/20/20 02:00 68 12 105/60 100 01/20/20 01:45 67 12 112/59 100 01/20/20 01:30 74 12 119/68 100 01/20/20 01:15 83 14 139/74 100 01/20/20 01:00 76 12 111/57 100 01/20/20 00:45 78 12 105/54 100 01/20/20 00:30 82 12 115/59 99 01/20/20 00:15 95 H 13 128/75 100 01/20/20 00:09 89 128/75 100 01/20/20 00:00 90 12 130/71 100 01/19/20 23:45 91 H 14 130/67 100 01/19/20 23:31 128 H 21 166/85 98 01/19/20 23:17 98.9 F 01/19/20 23:15 74 13 166/85 100 01/19/20 23:01 74 11 L 166/85 99 01/19/20 22:45 92 H 15 166/85 100 01/19/20 22:31 82 13 166/85 100 01/19/20 22:15 82 12 166/85 97 01/19/20 22:00 87 13 158/93 97 01/19/20 21:45 72 13 140/79 98 01/19/20 21:30 83 13 155/82 96 01/19/20 21:15 78 13 149/81 97 01/19/20 21:00 81 12 135/83 96 01/19/20 20:45 83 12 136/77 95 01/19/20 20:30 61 12 116/64 97 01/19/20 20:23 72 116/64 100 01/19/20 20:15 67 13 118/63 96 01/19/20 20:00 71 80 12 121/69 100 01/19/20 19:45 98.8 F 69 20 124/67 96 01/19/20 19:30 78 21 130/72 96 01/19/20 19:15 77 12 129/76 97 01/19/20 19:00 86 14 148/89 94 01/19/20 18:45 81 14 150/87 95 01/19/20 18:30 88 12 155/87 96 01/19/20 18:15 100 H 17 160/95 98 01/19/20 18:01 103 H 18 204/114 100 01/19/20 17:56 100 H 182/88 01/19/20 17:45 73 13 182/88 96 01/19/20 17:30 90 20 204/115 98 01/19/20 17:15 62 20 210/105 100 01/19/20 17:00 71 19 205/108 100 01/19/20 16:59 76 191/101 01/19/20 16:45 71 20 191/101 98 01/19/20 16:30 76 20 189/101 98 01/19/20 16:15 127 H 19 162/117 100 01/19/20 16:11 20 01/19/20 16:00 97.4 F L 76 85 19 185/101 100 01/19/20 15:59 58 L 141/77 100 01/19/20 15:45 84 19 186/99 100 01/19/20 15:41 20 01/19/20 15:30 77 20 166/88 100 01/19/20 15:15 68 20 155/87 99 01/19/20 15:00 47 L 20 141/77 98 01/19/20 14:45 45 L 20 142/79 98 01/19/20 14:30 48 L 20 144/82 97 01/19/20 14:17 58 L 20 100 01/19/20 14:01 87 21 173/95 100 01/19/20 13:45 96 H 19 176/89 100 01/19/20 13:31 129 H 16 176/89 98 01/19/20 13:30 113 H 173/95 100 01/19/20 13:23 20 01/19/20 13:15 58 L 20 176/89 100 01/19/20 13:00 55 L 20 167/89 100 01/19/20 12:59 20 01/19/20 12:45 69 20 154/85 100 01/19/20 12:30 63 20 165/80 100 01/19/20 12:15 58 L 20 167/85 01/19/20 12:01 58 L 19 175/95 01/19/20 12:00 99.5 F 57 L 57 L 20 01/19/20 11:59 20 01/19/20 11:45 99 H 14 147/83 01/19/20 11:30 70 20 160/88 01/19/20 11:15 82 20 147/83 01/19/20 11:05 102 H 161/84 01/19/20 11:00 73 20 145/84 01/19/20 10:45 100 H 19 149/84 01/19/20 10:30 107 H 20 140/76 100 - Physical Examination Cardiac: Positive: Reg Rate and Rhythm, S1/S2 - Allied health notes Allied health notes reviewed: nursing
[2020-01-20 11:53] LABS: C-Reactive Protein 5.1 mg/dL (0.00-1.30)
[2020-01-20] MEDS: HYDROmorphone 1 MG/1 ML INJ IV PRN ×2 (12:34→16:48)
[2020-01-20] MEDS: ENALAPRILAT 2.5 MG/2 ML INJ IV PRN (12:42)
--- NOTE | 2020-01-20 13:18 | Progress Note ---
Subjective Date of service: 01/20/20 Principal diagnosis: Ac. hypoxemic resp failure; COVID infection; PNA; ARACELI; Thrombocytopenia Interval history: Acute hypoxic respiratory failure. secondary to COVID-19 infection. Patient remains on mechanical ventilation. Pulmonary following. ABG results reviewed Patient is on 30% FiO2 and PEEP of 8 COVID-19 pneumonia. Patient was initially diagnosed 8 days prior to admission. Inflammatory markers reviewed. ID following. Continue dexamethasone 6 mg IV for completion of 10 days. Treated with remdesivir for 4 days and stopped on 01/17/2020 per ID recommendation because of bradycardia. Continue to trend inflammatory markers. Full dose anticoagulation given the high d-dimer. Sepsis. Etiology secondary to above. Continue IV antibiotics of ceftriaxone and azithromycin. Morbid obesity. Counseling once patient is extubated Severe bradycardia this morning 01/15/2020; was in the 30's and was given atropine, and cardiology consult note reviewed Improved Likely secondary to Decadron No further recommendations Elevated LFTs/transaminitis.-Improving Etiology likely secondary to sepsis/COVID-19 Acute kidney injury. Improving well Etiology secondary to sepsis/ATN. Nephrology consult note reviewed Hypernatremia Secondary to dehydration Resolved Serum sodium down to 146 Hyperkalemia. Resolved Etiology likely secondary to above. Kayexalate x1. History of present illness: 39 YO Female with MO, Obesity Hypoventilation Syndrome, DM, Asthma presents to ED for evaluation. Patient states that she has experienced shortness of breath over the past 3 days with worsening symptoms over the past 1 day. Patient also acknowledges nonproductive cough, malaise, weakness, fatigue, decreased exercise tolerance, subjective fever and body aches. Patient states that she tested positive for coronavirus 8 days ago and has experienced worsening symptoms over the past 3 days. EMS was notified and upon arrival the patient was found to be in distress. Patient placed on submental oxygen and transported to [facility] for further care and evaluation. Patient seen and evaluated in the emergency department. Lab and imaging studies reviewed. Patient found to have a pulse oximetry of 80% on room air which is consistent with acute hypoxemic respiratory failure as well as a fever with a temperature of 101.3 F. Patient underwent chest x-ray which revealed bilateral pneumonia which was complicated by sepsis. Patient admitted to medical floor and initiated on pneumonia protocol as well as COVID-19 protocol as well as sepsis protocol. Patient denies chills, chest pain, palpitations, productive cough, skin rash, recent ill contacts. Patient acknowledges positive coronavirus infection. No prior admission for review. All medication listed at time of admission has been reconciled. Coronavirus PCR has been ordered and is pending at time of admission. 01/16/2020; patient is still on mechanical ventilation FiO2 40, PEEP 14, patient is on fentanyl, Versed, propofol. Patient proned. We will continue to monitor. Patient is off IV antibiotics. Treated for 5 days with IV ceftriaxone. ID, nephrology and pulmonary consult appreciated 01/17/2020; patient is still on mechanical ventilation FiO2 40, PEEP 14, patient is on fentanyl, Versed, propofol. Patient proned. We will continue to monitor. Patient is off IV antibiotics. Treated for 5 days with IV ceftriaxone. ID, nephrology and pulmonary consult appreciated. Patient has elevated sodium level and advised to increase free water intake through the NG tube feeding. 01/18/2020; patient is still on mechanical ventilation with FiO2 of 40 and PEEP of 14 patient is on fentanyl and Versed for sedation. Patient is on dexamethasone day 7 and probably severe was stopped yesterday after fourth dose per ID recommendation, patient is bradycardic. Cardiology was consulted and recommend to follow her closely. If heart rates below 40 we want to give her atropine. I discussed the management plan with her father Mr. Baxter in detail at [phone]. Mr. Baxter said his daughter was suffering from asthma and bipolar disorder. 01/19/20; patient is on mechanical ventilation FiO2 of 35 and PEEP of 8, patient is on fentanyl and Versed for sedation. Patient is on dexamethasone day 8. From the severe discontinued after she took for 4 days per ID recommendation due to bradycardia. Cardiology and nephrology consult appreciated. Discussed with her father in detail about the management plan on 01/18/2020. Continue with the same management. Vent management as per gem expert. 01/19 patient remains on vent, on FiO2 of 30% and PEEP of 8. She is on Diprivan and fentanyl. Per discussion with RN ,patient is anxious and intermittently agitated. Patient is awake and alert. Unable to perform review of systems secondary to patient being intubated. All interdisciplinary notes reviewed Lab results reviewed Objective - Constitutional Vitals: Vital Signs - 12hr 01/20/20 01/20/20 01/20/20 01:30 01:45 02:00 Temperature Pulse Rate 74 67 68 Pulse Rate [ From Monitor] Respiratory 12 12 12 Rate Blood Pressure 119/68 112/59 105/60 O2 Sat by Pulse 100 100 100 Oximetry 01/20/20 01/20/20 01/20/20 02:15 02:30 02:45 Temperature Pulse Rate 64 67 72 Pulse Rate [ From Monitor] Respiratory 12 12 12 Rate Blood Pressure 106/54 105/51 99/50 O2 Sat by Pulse 100 100 100 Oximetry 01/20/20 01/20/20 01/20/20 03:00 03:04 03:15 Temperature 98.9 F Pulse Rate 74 76 Pulse Rate [ From Monitor] Respiratory 12 15 Rate Blood Pressure 96/46 103/48 O2 Sat by Pulse 99 100 Oximetry 01/20/20 01/20/20 01/20/20 03:30 03:45 04:00 Temperature Pulse Rate 71 71 72 Pulse Rate [ 86 From Monitor] Respiratory 13 12 12 Rate Blood Pressure 104/52 104/52 108/59 O2 Sat by Pulse 100 100 100 Oximetry 01/20/20 01/20/20 01/20/20 04:08 04:15 04:30 Temperature Pulse Rate 110 H 92 H 102 H Pulse Rate [ From Monitor] Respiratory 18 13 Rate Blood Pressure 148/92 148/92 127/81 O2 Sat by Pulse 100 100 99 Oximetry 01/20/20 01/20/20 01/20/20 04:45 05:00 05:15 Temperature Pulse Rate 111 H 92 H 89 Pulse Rate [ From Monitor] Respiratory 17 12 12 Rate Blood Pressure 146/94 125/74 127/73 O2 Sat by Pulse 100 100 100 Oximetry 01/20/20 01/20/20 01/20/20 05:30 05:45 06:00 Temperature Pulse Rate 93 H 83 79 Pulse Rate [ From Monitor] Respiratory 12 12 11 L Rate Blood Pressure 116/65 109/55 101/54 O2 Sat by Pulse 100 100 100 Oximetry 01/20/20 01/20/20 01/20/20 06:15 06:30 06:45 Temperature Pulse Rate 78 75 70 Pulse Rate [ From Monitor] Respiratory 11 L 12 12 Rate Blood Pressure 98/49 97/47 99/49 O2 Sat by Pulse 100 100 100 Oximetry 01/20/20 01/20/20 01/20/20 07:00 07:07 07:15 Temperature Pulse Rate 69 68 66 Pulse Rate [ From Monitor] Respiratory 12 12 Rate Blood Pressure 97/52 97/52 98/54 O2 Sat by Pulse 100 100 100 Oximetry 01/20/20 01/20/20 01/20/20 07:30 07:45 08:00 Temperature 99.5 F Pulse Rate 71 68 82 Pulse Rate [ 71 From Monitor] Respiratory 12 12 13 Rate Blood Pressure 106/57 101/52 104/50 O2 Sat by Pulse 100 100 100 Oximetry 01/20/20 01/20/20 01/20/20 08:15 08:30 08:45 Temperature Pulse Rate 107 H 108 H 95 H Pulse Rate [ From Monitor] Respiratory 16 14 12 Rate Blood Pressure 118/59 124/64 123/67 O2 Sat by Pulse 100 100 100 Oximetry 01/20/20 01/20/20 01/20/20 09:00 09:15 09:30 Temperature Pulse Rate 115 H 103 H 110 H Pulse Rate [ From Monitor] Respiratory 14 14 16 Rate Blood Pressure 114/67 124/59 112/63 O2 Sat by Pulse 100 100 99 Oximetry 01/20/20 01/20/20 01/20/20 09:45 09:46 10:00 Temperature Pulse Rate 128 H 128 H Pulse Rate [ From Monitor] Respiratory 20 15 21 Rate Blood Pressure 135/76 139/81 O2 Sat by Pulse 100 100 Oximetry 01/20/20 01/20/20 01/20/20 10:15 10:30 10:45 Temperature Pulse Rate 104 H 107 H 106 H Pulse Rate [ From Monitor] Respiratory 16 14 14 Rate Blood Pressure 145/77 133/78 140/78 O2 Sat by Pulse 100 100 100 Oximetry 01/20/20 01/20/20 01/20/20 10:46 11:00 11:04 Temperature Pulse Rate 102 H 105 H Pulse Rate [ From Monitor] Respiratory 20 13 Rate Blood Pressure 136/72 140/78 O2 Sat by Pulse 100 100 Oximetry 01/20/20 01/20/20 01/20/20 11:15 11:30 11:45 Temperature Pulse Rate 116 H 114 H 119 H Pulse Rate [ From Monitor] Respiratory 17 19 15 Rate Blood Pressure 142/89 146/84 151/89 O2 Sat by Pulse 100 100 100 Oximetry 01/20/20 01/20/20 01/20/20 11:54 12:00 12:15 Temperature 98.4 F Pulse Rate 108 H 111 H 121 H Pulse Rate [ 108 H From Monitor] Respiratory 17 21 21 Rate Blood Pressure 151/89 160/88 157/96 O2 Sat by Pulse 100 100 100 Oximetry 01/20/20 01/20/20 12:34 12:42 Temperature Pulse Rate 102 H Pulse Rate [ From Monitor] Respiratory 20 Rate Blood Pressure 176/104 O2 Sat by Pulse Oximetry General appearance: Present: no acute distress, obese - EENT Eyes: PERRL, EOM intact ENT: hearing intact - Neck Neck: supple, normal ROM, no masses or JVD - Respiratory Respiratory effort: normal Respiratory: bilateral: CTA, diminished - Cardiovascular Rhythm: regular Heart Sounds: Present: S1 & S2 Extremity abnormal: edema (Trace pedal edema) - Gastrointestinal General gastrointestinal: Present: soft, non-tender Rectal Exam: deferred - Genitourinary Female genitourinary: deferred - Integumentary Integumentary: clear - Neurologic Neurologic: moves all extremities - Psychiatric Psychiatric: appropriate mood/affect - Labs CBC & Chem 7: 01/17/20 06:00 01/19/20 04:00 Labs: Abnormal lab results 01/19/20 01/20/20 01/20/20 Range/Units 18:13 00:13 04:21 D-Dimer (0-234) ng/mlDDU ABG HCO3 26.8 H (20.0-26.0) mmol/L ABG Hemoglobin 10.7 L (12.0-16.0) gm/dl Oxyhemoglobin 94.3 L (95.0-99.0) % POC Glucose 272 H 223 H (70-105) Ferritin (10.0-200.0) ng/mL Lactate Dehydrogenase (91-180) units/L C-Reactive Protein (0.00-1.30) mg/dL 01/20/20 01/20/20 01/20/20 Range/Units 05:30 11:14 11:14 D-Dimer 1221.96 H (0-234) ng/mlDDU ABG HCO3 (20.0-26.0) mmol/L ABG Hemoglobin (12.0-16.0) gm/dl Oxyhemoglobin (95.0-99.0) % POC Glucose 129 H (70-105) Ferritin 364.6 H (10.0-200.0) ng/mL Lactate Dehydrogenase (91-180) units/L C-Reactive Protein (0.00-1.30) mg/dL 01/20/20 01/20/20 Range/Units 11:14 12:01 D-Dimer (0-234) ng/mlDDU ABG HCO3 (20.0-26.0) mmol/L ABG Hemoglobin (12.0-16.0) gm/dl Oxyhemoglobin (95.0-99.0) % POC Glucose 260 H (70-105) Ferritin (10.0-200.0) ng/mL Lactate Dehydrogenase 403 H (91-180) units/L C-Reactive Protein 5.10 H (0.00-1.30) mg/dL
--- NOTE | 2020-01-20 15:29 | Progress Note ---
Assessment and Plan Acute hypoxemic respiratory failure orally intubated on MVS Severe COVID infection Multifocal pneumonia Extreme obesity ARACELI- vasomotor nephropathy/COVID Thrombocytopenia Hyperglycemia Hypernatremia - back on full AC support now re: SBP's > 200 mmHg and pulse in 160's - prn metoprolol IV for tachycardia - repeat EKG with Qt in 300's - begin Seroquel 200 mg bid - begin amlodipine 10 mg p.o. qd - increase hydralazine to 100 mg p.o. q8h - continue labetalol 10 mg IV q6h prn SBP > 160 mmHg (hold for pulse < 60) - continue Vasotech .25 mg IV q6h prn (2 day order) - keep set rate at 12/min - begin Nystatin for oral thrush - continue to avoid Qt prolonging drugs otherwise - continue care as below; - Stopped Propofol since she has had significant bradycardia and use Fentanyl/Midazolam for sedation - NGT/small bowel feeding tube, continue enteric nutrition at goal rate as tolerated - Free water flushes for hypernatremia, monitor closely - continue to avoid nephrotoxins, closely monitor renal function, renally dose all medications - Fluid conservative measures - VAP bundle addressed - CXR, ABG prn - Therapeutic anticoagulation with Lovenox - Permissive hypercapnia is acceptable - continue bronchodilators with pulmonary hygiene per RT - Monitor airway pressures, lung protective strategies - wean off benzodiazepines as soon as possible , reduce the possibility of delirium - prn analgesia per CPOT score - sedation prn for target RASS -2 to -3 - Continue to wean supplemental oxygen for target O2 sats > 92% - conservative fluid management measures as tolerated by hemodynamics and renal function - Bronchodilators with pulmonary hygiene per RT - Antibiotics for CAP , complete course. ID following - Accuchecks with glycemic control per SSI (While critically ill target blood glucose of 140-180 mg/dL; avoid hypoglycemia) - Maintenance of sleep-wake cycle, avoid delirium - Aspiration precautions, HOB >40 - Stress ulcer prophylaxis - Mobility protocol, off loading and skin assessment for pressure ulcer prev ention - Monitor hemodynamics closely - Supportive transfusions as indicated to keep HgB >7g/dL COVID SPECIFIC INTERVENTIONS: - Airborne, contact isolation for COVID per facility protocols - IV steroids-dexamethasone - Trend d-dimer,and other inflammatory markers per facility protocol - Evaluate for Convalescent plasma therapy- patient is blood less medicine and will not accept COVID convalescent plasma - complete Remdesivir dosing - completed ceftriaxone 2 gm IV qday and azithromycin 500 mg PO qday for empiric CAP coverage - Monitor QTc Discussed with the ICU team-ELDER MCALLISTER Life threatening condition- COVID 19 ARDS acute hypoxemic respiratory failure on MVS Mortality/Morbidity- High Complexity of medical decision making- High CONDITION: CRITICAL PROGNOSIS: GUARDED CODE STATUS: FULL CODE The high probability of a clinically significant, sudden or life-threatening deterioration of the [respiratory & neurology, renal ] system(s) required my full and direct attention, intervention and personal management. The aggregate critical care time was [32] minutes without overlap. Time includes spent on; [x] Data Review and interpretation [x] Patient assessment and monitoring of vital signs [x] Documentation [x] Medication orders and management Subjective Date of service: 01/20/20 Principal diagnosis: Ac. hypoxemic resp failure; COVID infection; PNA; ARACELI; Thrombocytopenia Interval history: Patient is seen today for: Acute hypoxemic respiratory failure; Severe COVID infection; Multifocal pneumonia; Extreme obesity; ARACELI; Thrombocytopenia Seen and examined at bedside; 24hour events reviewed; nursing and respiratory care staff consulted; no adverse overnight events reported to me; resting peacefully in bed; remains on MVS but tolerating PSV trial; still very anxious despite being on fentanyl and versed drips; denies acute chest pains or SOB; + h/o schizoaffective disorder prior Objective Vital Signs - 12hr 01/20/20 01/20/20 01/20/20 03:30 03:45 04:00 Temperature Pulse Rate 71 71 72 Pulse Rate [ 86 From Monitor] Respiratory 13 12 12 Rate Blood Pressure 104/52 104/52 108/59 O2 Sat by Pulse 100 100 100 Oximetry 01/20/20 01/20/20 01/20/20 04:08 04:15 04:30 Temperature Pulse Rate 110 H 92 H 102 H Pulse Rate [ From Monitor] Respiratory 18 13 Rate Blood Pressure 148/92 148/92 127/81 O2 Sat by Pulse 100 100 99 Oximetry 01/20/20 01/20/20 01/20/20 04:45 05:00 05:15 Temperature Pulse Rate 111 H 92 H 89 Pulse Rate [ From Monitor] Respiratory 17 12 12 Rate Blood Pressure 146/94 125/74 127/73 O2 Sat by Pulse 100 100 100 Oximetry 01/20/20 01/20/20 01/20/20 05:30 05:45 06:00 Temperature Pulse Rate 93 H 83 79 Pulse Rate [ From Monitor] Respiratory 12 12 11 L Rate Blood Pressure 116/65 109/55 101/54 O2 Sat by Pulse 100 100 100 Oximetry 01/20/20 01/20/20 01/20/20 06:15 06:30 06:45 Temperature Pulse Rate 78 75 70 Pulse Rate [ From Monitor] Respiratory 11 L 12 12 Rate Blood Pressure 98/49 97/47 99/49 O2 Sat by Pulse 100 100 100 Oximetry 01/20/20 01/20/20 01/20/20 07:00 07:07 07:15 Temperature Pulse Rate 69 68 66 Pulse Rate [ From Monitor] Respiratory 12 12 Rate Blood Pressure 97/52 97/52 98/54 O2 Sat by Pulse 100 100 100 Oximetry 01/20/20 01/20/20 01/20/20 07:30 07:45 08:00 Temperature 99.5 F Pulse Rate 71 68 82 Pulse Rate [ 71 From Monitor] Respiratory 12 12 13 Rate Blood Pressure 106/57 101/52 104/50 O2 Sat by Pulse 100 100 100 Oximetry 01/20/20 01/20/20 01/20/20 08:15 08:30 08:45 Temperature Pulse Rate 107 H 108 H 95 H Pulse Rate [ From Monitor] Respiratory 16 14 12 Rate Blood Pressure 118/59 124/64 123/67 O2 Sat by Pulse 100 100 100 Oximetry 01/20/20 01/20/20 01/20/20 09:00 09:15 09:30 Temperature Pulse Rate 115 H 103 H 110 H Pulse Rate [ From Monitor] Respiratory 14 14 16 Rate Blood Pressure 114/67 124/59 112/63 O2 Sat by Pulse 100 100 99 Oximetry 01/20/20 01/20/20 01/20/20 09:45 09:46 10:00 Temperature Pulse Rate 128 H 128 H Pulse Rate [ From Monitor] Respiratory 20 15 21 Rate Blood Pressure 135/76 139/81 O2 Sat by Pulse 100 100 Oximetry 01/20/20 01/20/20 01/20/20 10:15 10:30 10:45 Temperature Pulse Rate 104 H 107 H 106 H Pulse Rate [ From Monitor] Respiratory 16 14 14 Rate Blood Pressure 145/77 133/78 140/78 O2 Sat by Pulse 100 100 100 Oximetry 01/20/20 01/20/20 01/20/20 10:46 11:00 11:04 Temperature Pulse Rate 102 H 105 H Pulse Rate [ From Monitor] Respiratory 20 13 Rate Blood Pressure 136/72 140/78 O2 Sat by Pulse 100 100 Oximetry 01/20/20 01/20/20 01/20/20 11:15 11:30 11:45 Temperature Pulse Rate 116 H 114 H 119 H Pulse Rate [ From Monitor] Respiratory 17 19 15 Rate Blood Pressure 142/89 146/84 151/89 O2 Sat by Pulse 100 100 100 Oximetry 01/20/20 01/20/20 01/20/20 11:54 12:00 12:15 Temperature 98.4 F Pulse Rate 108 H 111 H 121 H Pulse Rate [ 108 H From Monitor] Respiratory 17 21 21 Rate Blood Pressure 151/89 160/88 157/96 O2 Sat by Pulse 100 100 100 Oximetry 01/20/20 01/20/20 01/20/20 12:30 12:34 12:42 Temperature Pulse Rate 127 H 102 H Pulse Rate [ From Monitor] Respiratory 25 H 20 Rate Blood Pressure 176/104 176/104 O2 Sat by Pulse 100 Oximetry 01/20/20 01/20/20 01/20/20 12:45 13:00 13:04 Temperature Pulse Rate 99 H 106 H Pulse Rate [ From Monitor] Respiratory 17 19 20 Rate Blood Pressure 156/85 159/97 O2 Sat by Pulse 100 100 Oximetry 01/20/20 01/20/20 01/20/20 13:15 13:30 13:45 Temperature Pulse Rate 92 H 101 H 107 H Pulse Rate [ From Monitor] Respiratory 15 17 19 Rate Blood Pressure 145/77 162/91 164/92 O2 Sat by Pulse 100 100 100 Oximetry 01/20/20 01/20/20 01/20/20 14:00 14:05 14:15 Temperature Pulse Rate 122 H 124 H 127 H Pulse Rate [ From Monitor] Respiratory 21 12 Rate Blood Pressure 151/93 151/93 154/94 O2 Sat by Pulse 100 100 Oximetry 01/20/20 01/20/20 01/20/20 14:30 14:45 15:00 Temperature Pulse Rate 108 H 112 H 117 H Pulse Rate [ From Monitor] Respiratory 18 18 15 Rate Blood Pressure 164/82 155/87 144/88 O2 Sat by Pulse 100 100 100 Oximetry 01/20/20 15:15 Temperature Pulse Rate 107 H Pulse Rate [ From Monitor] Respiratory 18 Rate Blood Pressure 168/92 O2 Sat by Pulse 100 Oximetry Constitutional: no acute distress, other (Morbidly obese AAW, supine ETT 7.5 at 23cm CHAD) Eyes: non-icteric ENT: oropharynx moist, other (ETT 24 cm CHAD) Neck: supple, no lymphadenopathy, no JVD Effort: mildly labored Ascultation: Bilateral: diminished breath sounds, rhonchi Percussion: Bilateral: not dull Cardiovascular: regular rate and rhythm, other Gastrointestinal: normoactive bowel sounds, soft, non-tender, non-distended (protuberant) Integumentary: normal Extremities: no cyanosis, pulses normal, no ischemia or petechiae, edema (trace) Neurologic: non-focal exam (grossly), pupils equal and round, CN II-XII normal, motor strength normal and, unable to assess Psychiatric: anxious CBC and BMP: 01/17/20 06:00 01/19/20 04:00 ABG, PT/INR, D-dimer: ABG ABG pH 7.382 pH Units (7.350-7.450) 01/20/20 04:21 POC ABG pCO2 33.9 mmHg (32.0-48.0) 01/16/20 03:33 ABG pCO2 46.1 mm Hg 01/20/20 04:21 POC ABG pO2 86.3 mmHg (83-108) 01/16/20 03:33 ABG pO2 81.7 mm Hg (80.0-90.0) 01/20/20 04:21 POC ABG HCO3 24.5 01/16/20 03:33 ABG O2 Saturation 96.5 % (95.0-99.0) 01/20/20 04:21 PT/INR, D-dimer D-Dimer 1221.96 ng/mlDDU (0-234) H 01/20/20 11:14 Abnormal lab findings: Abnormal Labs 01/11/20 01/11/20 01/11/20 17:22 17:22 17:22 WBC RBC MCV MCH RDW Plt Count Lymph % (Auto) [place] # Seg Neutrophils % Seg Neuts % (Manual) Lymphocytes % (Manual) Seg Neutrophils # Seg Neutrophils # Man Lymphocytes # (Manual) D-Dimer 622.52 H ABG pH POC ABG pCO2 POC ABG pO2 ABG pO2 ABG O2 Saturation ABG Base Excess ABG Oxyhemoglobin ABG HCO3 ABG Hemoglobin Oxyhemoglobin Sodium Potassium Chloride 97.6 L Carbon Dioxide 18 L BUN Creatinine Glucose 199 H POC Glucose Lactic Acid 2.20 H* Ferritin AST 68 H Magnesium Lactate Dehydrogenase C-Reactive Protein Total Protein Albumin 3.0 L Qfuxi-4-Zhuysejbf Ozxfo-5-Fbqevwtjh PEP Interpretation Triglycerides TSH Complement C4 Coronavirus (PCR) 01/11/20 01/11/20 01/11/20 17:22 17:22 23:29 WBC RBC MCV MCH RDW Plt Count Lymph % (Auto) [place] # Seg Neutrophils % Seg Neuts % (Manual) Lymphocytes % (Manual) Seg Neutrophils # Seg Neutrophils # Man Lymphocytes # (Manual) D-Dimer ABG pH POC ABG pCO2 POC ABG pO2 ABG pO2 ABG O2 Saturation ABG Base Excess ABG Oxyhemoglobin ABG HCO3 ABG Hemoglobin Oxyhemoglobin Sodium Potassium Chloride Carbon Dioxide BUN Creatinine Glucose 202 H POC Glucose Lactic Acid 2.10 H* Ferritin 270.3 H AST Magnesium Lactate Dehydrogenase 610 H C-Reactive Protein 23.80 H Total Protein Albumin Eevgg-2-Fevxcopqc Rjljk-8-Iqmtrdhaw PEP Interpretation Triglycerides TSH Complement C4 Coronavirus (PCR) 01/12/20 01/12/20 01/12/20 07:07 07:07 09:00 WBC RBC 5.31 H MCV 76 L MCH 25 L RDW 15.5 H Plt Count Lymph % (Auto) 11.2 L [place] # Seg Neutrophils % 85.2 H Seg Neuts % (Manual) Lymphocytes % (Manual) Seg Neutrophils # 9.2 H Seg Neutrophils # Man Lymphocytes # (Manual) D-Dimer ABG pH POC ABG pCO2 POC ABG pO2 ABG pO2 ABG O2 Saturation ABG Base Excess ABG Oxyhemoglobin ABG HCO3 ABG Hemoglobin Oxyhemoglobin Sodium Potassium Chloride Carbon Dioxide 21 L BUN 23 H Creatinine Glucose 206 H POC Glucose Lactic Acid Ferritin AST Magnesium Lactate Dehydrogenase C-Reactive Protein Total Protein Albumin Ornwy-6-Gzrrenyzf Pahkx-1-Qhpuvrjww PEP Interpretation Triglycerides TSH Complement C4 Coronavirus (PCR) Positive A 01/13/20 01/13/20 01/13/20 01:02 04:45 05:10 WBC RBC MCV MCH RDW Plt Count Lymph % (Auto) [place] # Seg Neutrophils % Seg Neuts % (Manual) Lymphocytes % (Manual) Seg Neutrophils # Seg Neutrophils # Man Lymphocytes # (Manual) D-Dimer > 71314 H ABG pH 7.19 L POC ABG pCO2 56.2 H POC ABG pO2 44.3 L 62.5 L ABG pO2 ABG O2 Saturation ABG Base Excess ABG Oxyhemoglobin 77.5 L 86.5 L ABG HCO3 ABG Hemoglobin Oxyhemoglobin Sodium Potassium Chloride Carbon Dioxide BUN Creatinine Glucose POC Glucose Lactic Acid Ferritin AST Magnesium Lactate Dehydrogenase C-Reactive Protein Total Protein Albumin Dnilv-9-Gijvfyvkt Wxfwn-9-Lqxsdbblx PEP Interpretation Triglycerides TSH Complement C4 Coronavirus (PCR) 01/13/20 01/13/20 01/13/20 05:10 05:54 12:07 WBC RBC MCV MCH RDW Plt Count Lymph % (Auto) [place] # Seg Neutrophils % Seg Neuts % (Manual) Lymphocytes % (Manual) Seg Neutrophils # Seg Neutrophils # Man Lymphocytes # (Manual) D-Dimer ABG pH POC ABG pCO2 POC ABG pO2 ABG pO2 ABG O2 Saturation ABG Base Excess ABG Oxyhemoglobin ABG HCO3 ABG Hemoglobin Oxyhemoglobin Sodium Potassium Chloride Carbon Dioxide BUN Creatinine Glucose POC Glucose 356 H 309 H Lactic Acid Ferritin AST Magnesium Lactate Dehydrogenase 999 H C-Reactive Protein Total Protein Albumin Oexvu-0-Nuienapzc Ydgoc-3-Lodgdhqpo PEP Interpretation Triglycerides TSH Complement C4 Coronavirus (PCR) 01/13/20 01/13/20 01/13/20 12:54 18:46 18:50 WBC 14.0 H RBC MCV 76 L MCH 25 L RDW 15.8 H Plt Count 113 L Lymph % (Auto) [place] # Seg Neutrophils % Seg Neuts % (Manual) 88.0 H Lymphocytes % (Manual) 2.0 L Seg Neutrophils # Seg Neutrophils # Man 12.3 H Lymphocytes # (Manual) 0.3 L D-Dimer ABG pH 7.290 L POC ABG pCO2 POC ABG pO2 ABG pO2 60.2 L ABG O2 Saturation 88.6 L ABG Base Excess -2.7 L ABG Oxyhemoglobin ABG HCO3 ABG Hemoglobin Oxyhemoglobin 87.1 L Sodium Potassium Chloride Carbon Dioxide BUN Creatinine Glucose POC Glucose 268 H Lactic Acid Ferritin AST Magnesium Lactate Dehydrogenase C-Reactive Protein Total Protein Albumin Tvznc-2-Cxequatml Afsiy-8-Bsbjcdgnb PEP Interpretation Triglycerides TSH Complement C4 Coronavirus (PCR) 01/13/20 01/14/20 01/14/20 23:53 00:31 03:13 WBC RBC MCV MCH RDW Plt Count Lymph % (Auto) [place] # Seg Neutrophils % Seg Neuts % (Manual) Lymphocytes % (Manual) Seg Neutrophils # Seg Neutrophils # Man Lymphocytes # (Manual) D-Dimer ABG pH POC ABG pCO2 POC ABG pO2 ABG pO2 132.6 H ABG O2 Saturation ABG Base Excess -2.7 L ABG Oxyhemoglobin ABG HCO3 ABG Hemoglobin Oxyhemoglobin Sodium Potassium 5.3 H Chloride Carbon Dioxide BUN 55 H Creatinine 1.6 H Glucose 268 H POC Glucose 259 H Lactic Acid Ferritin AST 46 H Magnesium Lactate Dehydrogenase C-Reactive Protein Total Protein 6.1 L Albumin 3.1 L Ykocw-7-Fbvwathql Mdlfa-8-Jmajluwlh PEP Interpretation Triglycerides TSH Complement C4 Coronavirus (PCR) 01/14/20 01/14/20 01/14/20 05:23 06:06 09:47 WBC RBC MCV MCH RDW Plt Count Lymph % (Auto) [place] # Seg Neutrophils % Seg Neuts % (Manual) Lymphocytes % (Manual) Seg Neutrophils # Seg Neutrophils # Man Lymphocytes # (Manual) D-Dimer > 45167 H ABG pH POC ABG pCO2 POC ABG pO2 ABG pO2 ABG O2 Saturation ABG Base Excess ABG Oxyhemoglobin ABG HCO3 ABG Hemoglobin Oxyhemoglobin Sodium Potassium 5.5 H Chloride 107.6 H Carbon Dioxide 21 L BUN 58 H Creatinine 1.7 H Glucose 231 H POC Glucose 231 H Lactic Acid Ferritin AST Magnesium Lactate Dehydrogenase C-Reactive Protein Total Protein Albumin Eobmz-0-Gxoyzkwuu Tyhbf-0-Joqokxkyo PEP Interpretation Triglycerides TSH Complement C4 Coronavirus (PCR) 01/14/20 01/14/20 01/14/20 09:47 12:20 16:00 WBC RBC MCV MCH RDW Plt Count Lymph % (Auto) [place] # Seg Neutrophils % Seg Neuts % (Manual) Lymphocytes % (Manual) Seg Neutrophils # Seg Neutrophils # Man Lymphocytes # (Manual) D-Dimer ABG pH POC ABG pCO2 POC ABG pO2 ABG pO2 69.3 L ABG O2 Saturation 94.4 L ABG Base Excess ABG Oxyhemoglobin ABG HCO3 ABG Hemoglobin Oxyhemoglobin 92.7 L Sodium Potassium Chloride 107.2 H Carbon Dioxide 21 L BUN 63 H Creatinine 1.5 H Glucose 217 H POC Glucose 238 H Lactic Acid Ferritin AST Magnesium Lactate Dehydrogenase C-Reactive Protein Total Protein 6.0 L Albumin 2.7 L Hghjw-8-Hwfkwgsif Gtksf-3-Ugrlpmbul PEP Interpretation Triglycerides TSH Complement C4 Coronavirus (PCR) 01/14/20 01/14/20 01/14/20 18:24 19:01 23:50 WBC RBC MCV MCH RDW Plt Count Lymph % (Auto) [place] # Seg Neutrophils % Seg Neuts % (Manual) Lymphocytes % (Manual) Seg Neutrophils # Seg Neutrophils # Man Lymphocytes # (Manual) D-Dimer ABG pH POC ABG pCO2 POC ABG pO2 ABG pO2 ABG O2 Saturation ABG Base Excess ABG Oxyhemoglobin ABG HCO3 ABG Hemoglobin Oxyhemoglobin Sodium 146 H Potassium 5.9 H Chloride 108.0 H Carbon Dioxide 20 L BUN 61 H Creatinine 1.4 H Glucose 254 H POC Glucose 228 H 321 H Lactic Acid Ferritin AST Magnesium Lactate Dehydrogenase C-Reactive Protein Total Protein Albumin Dxydp-5-Vbfwdfdya Gaoty-5-Tojazyioz PEP Interpretation Triglycerides TSH Complement C4 Coronavirus (PCR) 01/14/20 01/14/20 01/15/20 Unknown Unknown 03:37 WBC RBC MCV MCH RDW Plt Count Lymph % (Auto) [place] # Seg Neutrophils % Seg Neuts % (Manual) Lymphocytes % (Manual) Seg Neutrophils # Seg Neutrophils # Man Lymphocytes # (Manual) D-Dimer ABG pH 7.480 H POC ABG pCO2 POC ABG pO2 76.7 L ABG pO2 ABG O2 Saturation ABG Base Excess ABG Oxyhemoglobin ABG HCO3 ABG Hemoglobin Oxyhemoglobin Sodium Potassium Chloride Carbon Dioxide BUN Creatinine Glucose POC Glucose Lactic Acid Ferritin AST Magnesium Lactate Dehydrogenase C-Reactive Protein Total Protein Albumin 2.8 L Iqwub-6-Yaigwtmjy 0.6 H Mpnlz-5-Vmxbuifzm 1.1 H PEP Interpretation see below H Triglycerides TSH Complement C4 76 H Coronavirus (PCR) 01/15/20 01/15/20 01/15/20 03:57 03:57 05:50 WBC 14.9 H RBC MCV 75 L MCH 25 L RDW 15.4 H Plt Count Lymph % (Auto) 8.6 L [place] # 1.0 H Seg Neutrophils % 84.2 H Seg Neuts % (Manual) Lymphocytes % (Manual) Seg Neutrophils # 12.5 H Seg Neutrophils # Man Lymphocytes # (Manual) D-Dimer ABG pH POC ABG pCO2 POC ABG pO2 ABG pO2 ABG O2 Saturation ABG Base Excess ABG Oxyhemoglobin ABG HCO3 ABG Hemoglobin Oxyhemoglobin Sodium 152 H Potassium Chloride 113.0 H Carbon Dioxide BUN 52 H Creatinine Glucose 288 H POC Glucose 259 H Lactic Acid Ferritin AST Magnesium Lactate Dehydrogenase C-Reactive Protein Total Protein Albumin Ebkco-8-Udzoztfwa Jiifn-5-Pkiwgnorz PEP Interpretation Triglycerides TSH Complement C4 Coronavirus (PCR) 01/15/20 01/15/20 01/15/20 11:56 14:35 14:35 WBC RBC MCV MCH RDW Plt Count Lymph % (Auto) [place] # Seg Neutrophils % Seg Neuts % (Manual) Lymphocytes % (Manual) Seg Neutrophils # Seg Neutrophils # Man Lymphocytes # (Manual) D-Dimer ABG pH POC ABG pCO2 POC ABG pO2 ABG pO2 ABG O2 Saturation ABG Base Excess ABG Oxyhemoglobin ABG HCO3 ABG Hemoglobin Oxyhemoglobin Sodium Potassium Chloride Carbon Dioxide BUN Creatinine Glucose POC Glucose 162 H Lactic Acid Ferritin 332.4 H AST Magnesium Lactate Dehydrogenase 747 H C-Reactive Protein 7.60 H Total Protein Albumin Dgula-1-Mchmmmpcc Rebub-0-Svumfsrpv PEP Interpretation Triglycerides TSH Complement C4 Coronavirus (PCR) 01/15/20 01/15/20 01/15/20 14:35 14:35 16:18 WBC RBC MCV MCH RDW Plt Count Lymph % (Auto) [place] # Seg Neutrophils % Seg Neuts % (Manual) Lymphocytes % (Manual) Seg Neutrophils # Seg Neutrophils # Man Lymphocytes # (Manual) D-Dimer ABG pH 7.510 H POC ABG pCO2 POC ABG pO2 76.6 L ABG pO2 ABG O2 Saturation ABG Base Excess ABG Oxyhemoglobin ABG HCO3 ABG Hemoglobin Oxyhemoglobin Sodium Potassium Chloride Carbon Dioxide BUN Creatinine Glucose POC Glucose Lactic Acid Ferritin AST Magnesium 3.00 H Lactate Dehydrogenase C-Reactive Protein Total Protein Albumin Tlfsx-8-Udnagympg Miklf-1-Ehfzveeoe PEP Interpretation Triglycerides TSH 0.221 L Complement C4 Coronavirus (PCR) 01/15/20 01/15/20 01/16/20 17:31 23:26 03:33 WBC RBC MCV MCH RDW Plt Count Lymph % (Auto) [place] # Seg Neutrophils % Seg Neuts % (Manual) Lymphocytes % (Manual) Seg Neutrophils # Seg Neutrophils # Man Lymphocytes # (Manual) D-Dimer ABG pH 7.477 H POC ABG pCO2 POC ABG pO2 ABG pO2 ABG O2 Saturation ABG Base Excess ABG Oxyhemoglobin ABG HCO3 ABG Hemoglobin Oxyhemoglobin Sodium Potassium Chloride Carbon Dioxide BUN Creatinine Glucose POC Glucose 239 H 226 H Lactic Acid Ferritin AST Magnesium Lactate Dehydrogenase C-Reactive Protein Total Protein Albumin Cdizw-2-Wvlcrvaua Pcthp-3-Qnqkxzqco PEP Interpretation Triglycerides TSH Complement C4 Coronavirus (PCR) 01/16/20 01/16/20 01/16/20 04:00 04:00 05:45 WBC 13.6 H RBC MCV 74 L MCH 25 L RDW 15.4 H Plt Count Lymph % (Auto) [place] # Seg Neutrophils % Seg Neuts % (Manual) 91.0 H Lymphocytes % (Manual) 5.0 L Seg Neutrophils # Seg Neutrophils # Man 12.4 H Lymphocytes # (Manual) 0.7 L D-Dimer ABG pH POC ABG pCO2 POC ABG pO2 ABG pO2 ABG O2 Saturation ABG Base Excess ABG Oxyhemoglobin ABG HCO3 ABG Hemoglobin Oxyhemoglobin Sodium 151 H Potassium Chloride 113.8 H Carbon Dioxide BUN 45 H Creatinine Glucose 213 H POC Glucose 202 H Lactic Acid Ferritin AST Magnesium Lactate Dehydrogenase C-Reactive Protein Total Protein Albumin Gvnsz-0-Xfrjiuxaf Tndsf-7-Bzizygadl PEP Interpretation Triglycerides TSH Complement C4 Coronavirus (PCR) 01/16/20 01/16/20 01/17/20 12:02 17:27 00:07 WBC RBC MCV MCH RDW Plt Count Lymph % (Auto) [place] # Seg Neutrophils % Seg Neuts % (Manual) Lymphocytes % (Manual) Seg Neutrophils # Seg Neutrophils # Man Lymphocytes # (Manual) D-Dimer ABG pH POC ABG pCO2 POC ABG pO2 ABG pO2 ABG O2 Saturation ABG Base Excess ABG Oxyhemoglobin ABG HCO3 ABG Hemoglobin Oxyhemoglobin Sodium Potassium Chloride Carbon Dioxide BUN Creatinine Glucose POC Glucose 186 H 240 H 207 H Lactic Acid Ferritin AST Magnesium Lactate Dehydrogenase C-Reactive Protein Total Protein Albumin Xfeot-0-Frtuvtdmp Jcvxz-4-Pwqbbkmwt PEP Interpretation Triglycerides TSH Complement C4 Coronavirus (PCR) 01/17/20 01/17/20 01/17/20 04:50 05:46 06:00 WBC 11.5 H RBC MCV 75 L MCH 25 L RDW 15.5 H Plt Count Lymph % (Auto) [place] # Seg Neutrophils % Seg Neuts % (Manual) 81.0 H Lymphocytes % (Manual) 10.0 L Seg Neutrophils # Seg Neutrophils # Man 9.3 H Lymphocytes # (Manual) D-Dimer ABG pH 7.494 H POC ABG pCO2 POC ABG pO2 ABG pO2 73.4 L ABG O2 Saturation ABG Base Excess ABG Oxyhemoglobin ABG HCO3 ABG Hemoglobin Oxyhemoglobin 94.4 L Sodium Potassium Chloride Carbon Dioxide BUN Creatinine Glucose POC Glucose 170 H Lactic Acid Ferritin AST Magnesium Lactate Dehydrogenase C-Reactive Protein Total Protein Albumin Mzrbd-2-Tumwbmjjz Hmpaw-4-Vmsqzlgnu PEP Interpretation Triglycerides TSH Complement C4 Coronavirus (PCR) 01/17/20 01/17/20 01/17/20 06:00 11:32 13:40 WBC RBC MCV MCH RDW Plt Count Lymph % (Auto) [place] # Seg Neutrophils % Seg Neuts % (Manual) Lymphocytes % (Manual) Seg Neutrophils # Seg Neutrophils # Man Lymphocytes # (Manual) D-Dimer 1878.79 H ABG pH POC ABG pCO2 POC ABG pO2 ABG pO2 ABG O2 Saturation ABG Base Excess ABG Oxyhemoglobin ABG HCO3 ABG Hemoglobin Oxyhemoglobin Sodium 151 H Potassium Chloride 113.6 H Carbon Dioxide BUN 40 H Creatinine Glucose 149 H POC Glucose 229 H Lactic Acid Ferritin AST Magnesium Lactate Dehydrogenase C-Reactive Protein Total Protein Albumin Jmqjw-7-Tebtnhktk Blwpj-6-Hfqjqkdqr PEP Interpretation Triglycerides TSH Complement C4 Coronavirus (PCR) 01/17/20 01/17/20 01/17/20 13:40 13:40 17:45 WBC RBC MCV MCH RDW Plt Count Lymph % (Auto) [place] # Seg Neutrophils % Seg Neuts % (Manual) Lymphocytes % (Manual) Seg Neutrophils # Seg Neutrophils # Man Lymphocytes # (Manual) D-Dimer ABG pH POC ABG pCO2 POC ABG pO2 ABG pO2 ABG O2 Saturation ABG Base Excess ABG Oxyhemoglobin ABG HCO3 ABG Hemoglobin Oxyhemoglobin Sodium Potassium Chloride Carbon Dioxide BUN Creatinine Glucose POC Glucose 364 H Lactic Acid Ferritin 322.8 H AST Magnesium Lactate Dehydrogenase 587 H C-Reactive Protein 4.60 H Total Protein Albumin Llrdb-6-Fodeuwray Fznwp-9-Mlmjjukfi PEP Interpretation Triglycerides TSH Complement C4 Coronavirus (PCR) 01/17/20 01/17/20 01/18/20 21:30 23:53 03:40 WBC RBC MCV MCH RDW Plt Count Lymph % (Auto) [place] # Seg Neutrophils % Seg Neuts % (Manual) Lymphocytes % (Manual) Seg Neutrophils # Seg Neutrophils # Man Lymphocytes # (Manual) D-Dimer ABG pH POC ABG pCO2 POC ABG pO2 ABG pO2 179.6 H 162.6 H ABG O2 Saturation 99.2 H ABG Base Excess ABG Oxyhemoglobin ABG HCO3 ABG Hemoglobin 11.8 L Oxyhemoglobin Sodium Potassium Chloride Carbon Dioxide BUN Creatinine Glucose POC Glucose 272 H Lactic Acid Ferritin AST Magnesium Lactate Dehydrogenase C-Reactive Protein Total Protein Albumin Ezagb-6-Mtgalbtjm Exldb-0-Amcbvfxrw PEP Interpretation Triglycerides TSH Complement C4 Coronavirus (PCR) 01/18/20 01/18/20 01/18/20 04:00 05:00 05:54 WBC RBC MCV MCH RDW Plt Count Lymph % (Auto) [place] # Seg Neutrophils % Seg Neuts % (Manual) Lymphocytes % (Manual) Seg Neutrophils # Seg Neutrophils # Man Lymphocytes # (Manual) D-Dimer ABG pH POC ABG pCO2 POC ABG pO2 ABG pO2 ABG O2 Saturation ABG Base Excess ABG Oxyhemoglobin ABG HCO3 ABG Hemoglobin Oxyhemoglobin Sodium 150 H Potassium Chloride 113.4 H Carbon Dioxide BUN 44 H Creatinine Glucose 268 H POC Glucose 271 H Lactic Acid Ferritin AST Magnesium Lactate Dehydrogenase C-Reactive Protein Total Protein Albumin Xiede-4-Ttmpjodma Gqpxd-4-Nttdoqlyz PEP Interpretation Triglycerides 198 H TSH Complement C4 Coronavirus (PCR) 01/18/20 01/18/20 01/19/20 11:21 17:27 00:12 WBC RBC MCV MCH RDW Plt Count Lymph % (Auto) [place] # Seg Neutrophils % Seg Neuts % (Manual) Lymphocytes % (Manual) Seg Neutrophils # Seg Neutrophils # Man Lymphocytes # (Manual) D-Dimer ABG pH POC ABG pCO2 POC ABG pO2 ABG pO2 ABG O2 Saturation ABG Base Excess ABG Oxyhemoglobin ABG HCO3 ABG Hemoglobin Oxyhemoglobin Sodium Potassium Chloride Carbon Dioxide BUN Creatinine Glucose POC Glucose 244 H 232 H 143 H Lactic Acid Ferritin AST Magnesium Lactate Dehydrogenase C-Reactive Protein Total Protein Albumin Easyg-3-Umbvggttl Pjzux-6-Euznztjum PEP Interpretation Triglycerides TSH Complement C4 Coronavirus (PCR) 01/19/20 01/19/20 01/19/20 04:00 04:40 05:41 WBC RBC MCV MCH RDW Plt Count Lymph % (Auto) [place] # Seg Neutrophils % Seg Neuts % (Manual) Lymphocytes % (Manual) Seg Neutrophils # Seg Neutrophils # Man Lymphocytes # (Manual) D-Dimer ABG pH POC ABG pCO2 POC ABG pO2 ABG pO2 117.2 H ABG O2 Saturation ABG Base Excess ABG Oxyhemoglobin ABG HCO3 ABG Hemoglobin 9.7 L Oxyhemoglobin Sodium 146 H Potassium Chloride 111.3 H Carbon Dioxide BUN 38 H Creatinine Glucose 168 H POC Glucose 171 H Lactic Acid Ferritin AST Magnesium Lactate Dehydrogenase C-Reactive Protein Total Protein Albumin Vhxfl-4-Kzweegkni Onzqh-3-Oifrgdkqy PEP Interpretation Triglycerides TSH Complement C4 Coronavirus (PCR) 01/19/20 01/19/20 01/20/20 12:02 18:13 00:13 WBC RBC MCV MCH RDW Plt Count Lymph % (Auto) [place] # Seg Neutrophils % Seg Neuts % (Manual) Lymphocytes % (Manual) Seg Neutrophils # Seg Neutrophils # Man Lymphocytes # (Manual) D-Dimer ABG pH POC ABG pCO2 POC ABG pO2 ABG pO2 ABG O2 Saturation ABG Base Excess ABG Oxyhemoglobin ABG HCO3 ABG Hemoglobin Oxyhemoglobin Sodium Potassium Chloride Carbon Dioxide BUN Creatinine Glucose POC Glucose 208 H 272 H 223 H Lactic Acid Ferritin AST Magnesium Lactate Dehydrogenase C-Reactive Protein Total Protein Albumin Cizby-9-Clvmyqtks Mbehz-0-Astzaikoq PEP Interpretation Triglycerides TSH Complement C4 Coronavirus (PCR) 01/20/20 01/20/20 01/20/20 04:21 05:30 11:14 WBC RBC MCV MCH RDW Plt Count Lymph % (Auto) [place] # Seg Neutrophils % Seg Neuts % (Manual) Lymphocytes % (Manual) Seg Neutrophils # Seg Neutrophils # Man Lymphocytes # (Manual) D-Dimer 1221.96 H ABG pH POC ABG pCO2 POC ABG pO2 ABG pO2 ABG O2 Saturation ABG Base Excess ABG Oxyhemoglobin ABG HCO3 26.8 H ABG Hemoglobin 10.7 L Oxyhemoglobin 94.3 L Sodium Potassium Chloride Carbon Dioxide BUN Creatinine Glucose POC Glucose 129 H Lactic Acid Ferritin AST Magnesium Lactate Dehydrogenase C-Reactive Protein Total Protein Albumin Zvlwk-6-Ezprlwnqy Hcavh-3-Hvojkadpd PEP Interpretation Triglycerides TSH Complement C4 Coronavirus (PCR) 01/20/20 01/20/20 01/20/20 11:14 11:14 12:01 WBC RBC MCV MCH RDW Plt Count Lymph % (Auto) [place] # Seg Neutrophils % Seg Neuts % (Manual) Lymphocytes % (Manual) Seg Neutrophils # Seg Neutrophils # Man Lymphocytes # (Manual) D-Dimer ABG pH POC ABG pCO2 POC ABG pO2 ABG pO2 ABG O2 Saturation ABG Base Excess ABG Oxyhemoglobin ABG HCO3 ABG Hemoglobin Oxyhemoglobin Sodium Potassium Chloride Carbon Dioxide BUN Creatinine Glucose POC Glucose 260 H Lactic Acid Ferritin 364.6 H AST Magnesium Lactate Dehydrogenase 403 H C-Reactive Protein 5.10 H Total Protein Albumin Inpnb-8-Zehxnuexl Bucws-7-Nkdwqkxrz PEP Interpretation Triglycerides TSH Complement C4 Coronavirus (PCR) Allied health notes reviewed: nursing
[2020-01-20] MEDS ORDERED: METOPROLOL TARTRATE 5 MG/5 ML INJ IV ONE (15:59)
--- NOTE | 2020-01-20 16:23 | Progress Note ---
Assessment and Plan # Acute Kidney Injury: suspect tubular injury in setting of COVID-19, has improved with supportive measures. Does remain at higher risk of future ARACELI given bradycardia, overall critical illness - strict Is/Os - avoid nephrotoxins - IVF prn - supportive care per primary, ICU - serologies, UP/C pending; ANCA negative, complements WNL # Hypernatremia: due to free water deficit, stable at 151->150->146 now. No labs for review today. Would continue free water with tube feeds as able or start D5W if tolerated per pulmonary # Acute hypoxic respiratory failure, COVID-19+, Sepsis: appreciate ICU, ID recommendations # Bradycardia: appreciate cardiology input # Hyperkalemia: improved, following Subjective Date of service: 01/20/20 Principal diagnosis: Ac. hypoxemic resp failure; COVID infection; PNA; ARACELI; Thrombocytopenia Interval history: No acute events noted per chart review. Objective - Exam Narrative Exam: Due to COVID-19 and need to conserve PPE, patient was seen through window and not directly examined. Reviewed examination of primary team. - Vital Signs Vital signs: Vital Signs - 12hr 01/20/20 01/20/20 01/20/20 04:30 04:45 05:00 Temperature Pulse Rate 102 H 111 H 92 H Pulse Rate [ From Monitor] Respiratory 13 17 12 Rate Blood Pressure 127/81 146/94 125/74 O2 Sat by Pulse 99 100 100 Oximetry 01/20/20 01/20/20 01/20/20 05:15 05:30 05:45 Temperature Pulse Rate 89 93 H 83 Pulse Rate [ From Monitor] Respiratory 12 12 12 Rate Blood Pressure 127/73 116/65 109/55 O2 Sat by Pulse 100 100 100 Oximetry 01/20/20 01/20/20 01/20/20 06:00 06:15 06:30 Temperature Pulse Rate 79 78 75 Pulse Rate [ From Monitor] Respiratory 11 L 11 L 12 Rate Blood Pressure 101/54 98/49 97/47 O2 Sat by Pulse 100 100 100 Oximetry 01/20/20 01/20/20 01/20/20 06:45 07:00 07:07 Temperature Pulse Rate 70 69 68 Pulse Rate [ From Monitor] Respiratory 12 12 Rate Blood Pressure 99/49 97/52 97/52 O2 Sat by Pulse 100 100 100 Oximetry 01/20/20 01/20/20 01/20/20 07:15 07:30 07:45 Temperature Pulse Rate 66 71 68 Pulse Rate [ From Monitor] Respiratory 12 12 12 Rate Blood Pressure 98/54 106/57 101/52 O2 Sat by Pulse 100 100 100 Oximetry 01/20/20 01/20/20 01/20/20 08:00 08:15 08:30 Temperature 99.5 F Pulse Rate 82 107 H 108 H Pulse Rate [ 71 From Monitor] Respiratory 13 16 14 Rate Blood Pressure 104/50 118/59 124/64 O2 Sat by Pulse 100 100 100 Oximetry 01/20/20 01/20/20 01/20/20 08:45 09:00 09:15 Temperature Pulse Rate 95 H 115 H 103 H Pulse Rate [ From Monitor] Respiratory 12 14 14 Rate Blood Pressure 123/67 114/67 124/59 O2 Sat by Pulse 100 100 100 Oximetry 01/20/20 01/20/20 01/20/20 09:30 09:45 09:46 Temperature Pulse Rate 110 H 128 H Pulse Rate [ From Monitor] Respiratory 16 20 15 Rate Blood Pressure 112/63 135/76 O2 Sat by Pulse 99 100 Oximetry 01/20/20 01/20/20 01/20/20 10:00 10:15 10:30 Temperature Pulse Rate 128 H 104 H 107 H Pulse Rate [ From Monitor] Respiratory 21 16 14 Rate Blood Pressure 139/81 145/77 133/78 O2 Sat by Pulse 100 100 100 Oximetry 01/20/20 01/20/20 01/20/20 10:45 10:46 11:00 Temperature Pulse Rate 106 H 102 H Pulse Rate [ From Monitor] Respiratory 14 20 13 Rate Blood Pressure 140/78 136/72 O2 Sat by Pulse 100 100 Oximetry 01/20/20 01/20/20 01/20/20 11:04 11:15 11:30 Temperature Pulse Rate 105 H 116 H 114 H Pulse Rate [ From Monitor] Respiratory 17 19 Rate Blood Pressure 140/78 142/89 146/84 O2 Sat by Pulse 100 100 100 Oximetry 01/20/20 01/20/20 01/20/20 11:45 11:54 12:00 Temperature 98.4 F Pulse Rate 119 H 108 H 111 H Pulse Rate [ 108 H From Monitor] Respiratory 15 17 21 Rate Blood Pressure 151/89 151/89 160/88 O2 Sat by Pulse 100 100 100 Oximetry 01/20/20 01/20/2020 12:15 12:30 12:34 Temperature Pulse Rate 121 H 127 H Pulse Rate [ From Monitor] Respiratory 21 25 H 20 Rate Blood Pressure 157/96 176/104 O2 Sat by Pulse 100 100 Oximetry 01/20/20 01/20/20 01/20/20 12:42 12:45 13:00 Temperature Pulse Rate 102 H 99 H 106 H Pulse Rate [ From Monitor] Respiratory 17 19 Rate Blood Pressure 176/104 156/85 159/97 O2 Sat by Pulse 100 100 Oximetry 01/20/20 01/20/20 01/20/20 13:04 13:15 13:30 Temperature Pulse Rate 92 H 101 H Pulse Rate [ From Monitor] Respiratory 20 15 17 Rate Blood Pressure 145/77 162/91 O2 Sat by Pulse 100 100 Oximetry 01/20/20 01/20/20 01/20/20 13:45 14:00 14:05 Temperature Pulse Rate 107 H 122 H 124 H Pulse Rate [ From Monitor] Respiratory 19 21 Rate Blood Pressure 164/92 151/93 151/93 O2 Sat by Pulse 100 100 Oximetry 01/20/20 01/20/20 01/20/20 14:15 14:30 14:45 Temperature Pulse Rate 127 H 108 H 112 H Pulse Rate [ From Monitor] Respiratory 12 18 18 Rate Blood Pressure 154/94 164/82 155/87 O2 Sat by Pulse 100 100 100 Oximetry 01/20/20 01/20/20 01/20/20 15:00 15:15 15:30 Temperature Pulse Rate 117 H 107 H 159 H Pulse Rate [ From Monitor] Respiratory 15 18 29 H Rate Blood Pressure 144/88 168/92 168/92 O2 Sat by Pulse 100 100 99 Oximetry 01/20/20 01/20/20 01/20/20 15:31 15:39 15:45 Temperature Pulse Rate 151 H 135 H 145 H Pulse Rate [ From Monitor] Respiratory 18 17 Rate Blood Pressure 168/92 214/119 180/117 O2 Sat by Pulse 99 99 Oximetry 01/20/20 01/20/20 01/20/20 16:00 16:01 16:03 Temperature 100.2 F H Pulse Rate 111 H 111 H 110 H Pulse Rate [ 111 H From Monitor] Respiratory 20 18 Rate Blood Pressure 205/112 217/103 O2 Sat by Pulse 100 100 Oximetry - Lab 01/17/20 06:00 01/19/20 04:00 Most recent lab results ABG pH 7.382 pH Units (7.350-7.450) 01/20/20 04:21 ABG pCO2 46.1 mm Hg 01/20/20 04:21 ABG pO2 81.7 mm Hg (80.0-90.0) 01/20/20 04:21 ABG HCO3 26.8 mmol/L (20.0-26.0) H 01/20/20 04:21 ABG O2 Saturation 96.5 % (95.0-99.0) 01/20/20 04:21 Calcium 8.5 mg/dL (8.4-10.2) 01/19/20 04:00 Magnesium 3.00 mg/dL (1.7-2.3) H 01/15/20 14:35 Medications & Allergies - Medications Allergies/Adverse Reactions: Allergies shellfish derived Allergy (Verified 01/11/20 18:37) Swelling Home Medications: Home Medications Medication Instructions Recorded Confirmed Last Taken Type glipiZIDE [Glipizide] 10 mg PO DAILY #30 tablet 08/15/18 01/13/20 Unknown Rx Active Medications: Generic Name Dose Route Start Last Admin Trade Name Freq PRN Reason Stop Dose Admin Acetaminophen 650 mg 01/11/20 18:55 01/20/20 09:46 Tylenol PO 650 mg Q4H PRN Administration Pain MILD(1-3)/Fever >100.5/CORDOVA Amlodipine Besylate 10 mg 01/21/20 16:30 Amlodipine PO QDAY ASHISH Lipase/Protease/Amylase 1 each 01/14/20 11:00 Denise Marley 10,500 Unit FEEDTUBE PRN PRN For Clogged Feeding Tube Lipase/Protease/Amylase 1 each 01/19/20 18:10 Denise Marley 10,500 Unit FEEDTUBE PRN PRN For Clogged Feeding Tube Atropine Sulfate 1 mg 01/15/20 12:00 01/18/20 12:19 Atropine 0.1% (Cardiac) IV 1 mg ONCE PRN Administration HR < 40 Dexamethasone 6 mg 01/13/20 12:00 01/20/20 09:46 Decadron IV 01/22/20 10:01 6 mg Q24HR ASHISH Administration Enalaprilat 1.25 mg 01/19/20 17:45 01/20/20 12:42 Vasotec IV 1.25 mg Q6HR PRN Administration Blood Pressure Enoxaparin Sodium 120 mg 01/13/20 12:00 01/20/20 09:47 Enoxaparin SUB-Q 120 mg Q12HR ASHISH Administration Famotidine 20 mg 01/13/20 10:00 01/20/20 09:45 Pepcid IV 20 mg BID ASHISH Administration Fentanyl 50 mcg 01/13/20 01:52 01/19/20 11:59 Sublimaze IV 50 mcg Q10MIN PRN Administration ANALGESIA Hydralazine HCl 10 mg 01/19/20 16:33 Apresoline IV Q4HR PRN SBP >160 Hydralazine HCl 100 mg 01/20/20 16:07 Apresoline PO Q8HR ASHISH Hydromorphone HCl 0.25 mg 01/11/20 18:59 01/20/20 12:34 Dilaudid IV 0.25 mg Q4H PRN Administration Pain, Moderate (4-6) Hydrophilic Ointment 1 applic 01/13/20 01:52 Vaseline Lip Therapy TP Q2HR PRN Dry Lips Fentanyl Citrate 2,000 mcg in 100 mls @ 5.69 mls/hr 01/13/20 02:00 01/20/20 15:52 Fentanyl Drip Premix IV 4 mcg/kg/hr TITR ASHISH 22.76 mls/hr Titration Protocol 1 MCG/KG/HR Midazolam HCl 100 mg/ Sodium 100 mls @ 2 mls/hr 01/13/20 02:00 01/20/20 15:53 Chloride IV 5 mg/hr TITR ASHISH 5 mls/hr Titration Protocol 2 MG/HR Dopamine HCl/Dextrose 800 mg in 250 mls @ 4.425 mls/hr 01/17/20 19:00 Intropin Drip 800 Mg/D5w 250 Ml IV TITR ASHISH Protocol 2 MCG/KG/MIN Insulin Glargine 10 units 01/16/20 10:00 01/20/20 09:45 Lantus SUB-Q 10 units DAILY ASHISH Administration Insulin Human Lispro 0 unit 01/13/20 11:00 01/20/20 12:34 Humalog SUB-Q 6 unit Q6H ASHISH Administration Protocol Labetalol HCl 10 mg 01/19/20 16:54 01/20/20 15:39 Labetalol IV 10 mg Q6H PRN Administration Blood Pressure Midazolam HCl 2 mg 01/13/20 01:52 Versed IV Q10MIN PRN Sedation Multi-Ingred Cream/Lotion/Oil/Oint 1 applic 01/13/20 01:52 Artificial Tears Ophth Oint OU Q4HR PRN Dry Eye(s) Ondansetron HCl 4 mg 01/11/20 18:55 Zofran IV Q8H PRN Nausea And Vomiting Quetiapine Fumarate 200 mg 01/20/20 16:30 Seroquel PO BID ASHISH Simple Syrup 15 ml 01/14/20 11:00 Simple Syrup FEEDTUBE PRN PRN Hypoglycemia Simple Syrup 30 ml 01/14/20 11:00 Simple Syrup FEEDTUBE PRN PRN Hypoglycemia Simple Syrup 15 ml 01/19/20 18:10 Simple Syrup FEEDTUBE PRN PRN Hypoglycemia Simple Syrup 30 ml 01/19/20 18:10 Simple Syrup FEEDTUBE PRN PRN Hypoglycemia Sodium Bicarbonate 325 mg 01/14/20 11:00 Sodium Bicarbonate FEEDTUBE PRN PRN For Clogged Feeding Tube Sodium Bicarbonate 325 mg 01/19/20 18:10 Sodium Bicarbonate FEEDTUBE PRN PRN For Clogged Feeding Tube Sodium Chloride 10 ml 01/11/20 22:00 01/20/20 09:48 Sodium Chloride Flush Syringe 10 Ml IV 10 ml BID ASHISH Administration Sodium Chloride 10 ml 01/11/20 18:55 Sodium Chloride Flush Syringe 10 Ml IV PRN PRN LINE FLUSH
[2020-01-20] MEDS ORDERED: amLODIPine 10 MG TAB PO SCH (16:30)
[2020-01-20] MEDS: QUEtiapine 200 MG TAB PO SCH ×2 (16:37→22:01)
[2020-01-20] MEDS ORDERED: ZIPRASIDONE MESYLATE 20 MG VIAL IM PRN (17:23)
[2020-01-20] MEDS ORDERED: labetaloL 200 MG in DEXTROSE 5% IN WATER 160 ML IV SCH (20:00)
[2020-01-20] MEDS: cloNIDine 0.1 MG TAB PO SCH (20:19)
[2020-01-20] MEDS: dilTIAZem CD 120 MG CAP PO SCH (22:00)
[2020-01-20] MEDS: NYSTATIN 500,000 UNIT/5 ML ORAL LIQD PO SCH (22:00)
[2020-01-21 00:47] LABS: ANA Screen, IFA Positive (Negative)
[2020-01-21] MEDS: cloNIDine 0.1 MG TAB PO SCH ×4 (02:00→22:08)
[2020-01-21] MEDS: fentaNYL DRIP Premix 2,000 MCG/100 ML BAG IV SCH ×4 (04:30→21:40)
[2020-01-21] MEDS: dilTIAZem CD 120 MG CAP PO SCH ×2 (04:56→08:29)
[2020-01-21 06:23] LABS: Hematocrit 28.9 % (30.3-42.9); Hemoglobin 9.1 gm/dl (10.1-14.3); Mean Corpuscular HGB Conc 31 % (30-34); Mean Corpuscular Volume 77 fl (79-97); Platelet Count 260 K/mm3 (140-440); Red Blood Count 3.77 M/mm3 (3.65-5.03); Red Cell Distribution Width 15.1 % (13.2-15.2)
[2020-01-21] MEDS: hydrALAZINE 25 MG TAB PO SCH ×3 (06:42→21:13)
[2020-01-21] MEDS: INSULIN LISPRO 100 UNIT/ML VIAL 3 mL SUB-Q SCH ×5 (06:42→22:05)
[2020-01-21 06:45] LABS: Blood Urea Nitrogen 20 mg/dL (7-17); Calcium 8.2 mg/dL (8.4-10.2); Hemolysis Index 2
[2020-01-21 06:48] LABS: BUN/Creatinine Ratio 29
[2020-01-21] MEDS: NYSTATIN 500,000 UNIT/5 ML ORAL LIQD PO SCH ×4 (08:27→21:12)
[2020-01-21] MEDS: INSULIN GLARGINE 100 UNITS/ML SUB-Q SCH (09:30)
[2020-01-21] MEDS: FAMOTIDINE 20 MG TAB PO SCH ×2 (09:30→21:12)
[2020-01-21] MEDS: ENOXAPARIN 120 MG/0.8 ML INJ SUB-Q SCH ×2 (09:30→21:15)
[2020-01-21] MEDS: dexAMETHasone 4 MG/ML VIAL IV SCH (09:30)
[2020-01-21] MEDS: QUEtiapine 200 MG TAB PO SCH (09:32)
--- NOTE | 2020-01-21 09:44 | Progress Note ---
Assessment and Plan # Acute Kidney Injury: suspect tubular injury in setting of COVID-19, has improved with supportive measures. Does remain at higher risk of future ARACELI given bradycardia, overall critical illness - strict Is/Os - avoid nephrotoxins - IVF prn - supportive care per primary, ICU - serologies, UP/C pending; ANCA negative, complements WNL # Hypernatremia: due to free water deficit, stable at 151->150->146> 147 now. Shall increase her free water through the feeding tube. If patient remains hyponatremic may need to add IV D5W # Acute hypoxic respiratory failure, COVID-19+, Sepsis: appreciate ICU, ID recommendations # Bradycardia: appreciate cardiology input # Hyperkalemia: improved, following Shall follow patient peripherally Subjective Date of service: 01/21/20 Principal diagnosis: Ac. hypoxemic resp failure; COVID infection; PNA; ARACELI; Thrombocytopenia Interval history: Patient is currently on the ventilator. On 30% FiO2. O2 saturation 100%. Patient is currently sedated. Objective - Vital Signs Vital signs: Vital Signs - 12hr 01/20/20 01/20/20 01/20/20 21:45 22:00 22:01 Temperature Pulse Rate 114 H 125 H 131 H Pulse Rate [ From Monitor] Respiratory 15 20 Rate Blood Pressure 166/96 166/96 197/107 O2 Sat by Pulse 100 99 Oximetry 01/20/20 01/20/20 01/20/20 22:02 22:15 22:30 Temperature Pulse Rate 131 H 131 H 103 H Pulse Rate [ From Monitor] Respiratory 12 14 Rate Blood Pressure 197/107 197/107 144/85 O2 Sat by Pulse 98 100 Oximetry 01/20/20 01/20/20 01/20/20 22:46 23:00 23:15 Temperature Pulse Rate 96 H 98 H 97 H Pulse Rate [ From Monitor] Respiratory 15 16 22 Rate Blood Pressure 144/85 124/74 130/73 O2 Sat by Pulse 99 100 100 Oximetry 01/20/20 01/20/20 01/20/20 23:17 23:30 23:33 Temperature 98.9 F Pulse Rate 97 H 98 H Pulse Rate [ From Monitor] Respiratory 18 18 Rate Blood Pressure 130/73 131/77 O2 Sat by Pulse 100 100 Oximetry 01/20/20 01/21/20 01/21/20 23:45 00:00 00:14 Temperature Pulse Rate 89 93 H 90 Pulse Rate [ 90 From Monitor] Respiratory 18 14 Rate Blood Pressure 130/72 125/71 135/73 O2 Sat by Pulse 100 100 100 Oximetry 01/21/20 01/21/20 01/21/20 00:15 00:30 00:45 Temperature Pulse Rate 94 H 91 H 92 H Pulse Rate [ From Monitor] Respiratory 16 15 15 Rate Blood Pressure 135/73 115/67 117/66 O2 Sat by Pulse 100 100 100 Oximetry 01/21/20 01/21/20 01/21/20 01:00 01:15 01:30 Temperature Pulse Rate 92 H 89 90 Pulse Rate [ From Monitor] Respiratory 15 13 14 Rate Blood Pressure 113/65 117/62 117/63 O2 Sat by Pulse 100 100 99 Oximetry 01/21/20 01/21/20 01/21/20 01:45 02:00 02:15 Temperature Pulse Rate 86 87 86 Pulse Rate [ From Monitor] Respiratory 12 12 13 Rate Blood Pressure 109/58 106/58 109/56 O2 Sat by Pulse 100 100 100 Oximetry 01/21/20 01/21/20 01/21/20 02:30 02:45 02:48 Temperature 99.2 F Pulse Rate 84 82 Pulse Rate [ From Monitor] Respiratory 12 12 Rate Blood Pressure 103/55 106/55 O2 Sat by Pulse 100 100 Oximetry 01/21/20 01/21/20 01/21/20 03:00 03:15 03:30 Temperature Pulse Rate 80 81 80 Pulse Rate [ From Monitor] Respiratory 12 12 12 Rate Blood Pressure 98/53 101/53 99/54 O2 Sat by Pulse 100 100 100 Oximetry 01/21/20 01/21/20 01/21/20 03:45 04:00 04:15 Temperature Pulse Rate 81 79 81 Pulse Rate [ 87 From Monitor] Respiratory 12 13 16 Rate Blood Pressure 103/54 102/53 102/58 O2 Sat by Pulse 100 100 100 Oximetry 01/21/20 01/21/20 01/21/20 04:30 04:45 04:48 Temperature Pulse Rate 82 79 80 Pulse Rate [ From Monitor] Respiratory 15 12 Rate Blood Pressure 110/57 106/55 106/55 O2 Sat by Pulse 100 100 100 Oximetry 01/21/20 01/21/20 01/21/20 04:56 05:00 05:15 Temperature Pulse Rate 87 79 78 Pulse Rate [ From Monitor] Respiratory 12 12 Rate Blood Pressure 106/58 106/57 105/54 O2 Sat by Pulse 99 99 Oximetry 01/21/20 01/21/20 01/21/20 05:30 05:45 06:00 Temperature Pulse Rate 77 77 76 Pulse Rate [ From Monitor] Respiratory 12 12 12 Rate Blood Pressure 102/54 103/54 102/54 O2 Sat by Pulse 99 100 99 Oximetry 01/21/20 01/21/20 01/21/20 06:15 06:30 06:42 Temperature Pulse Rate 76 76 76 Pulse Rate [ From Monitor] Respiratory 12 12 Rate Blood Pressure 101/53 101/52 101/56 O2 Sat by Pulse 100 100 Oximetry 01/21/20 01/21/20 01/21/20 06:45 07:00 07:15 Temperature Pulse Rate 75 72 71 Pulse Rate [ From Monitor] Respiratory 12 12 12 Rate Blood Pressure 102/52 104/50 101/49 O2 Sat by Pulse 100 100 100 Oximetry 01/21/20 01/21/20 01/21/20 07:30 07:39 07:45 Temperature Pulse Rate 75 75 73 Pulse Rate [ From Monitor] Respiratory 12 90 H 12 Rate Blood Pressure 101/51 101/51 101/51 O2 Sat by Pulse 100 100 100 Oximetry - General Appearance General appearance: well-developed, well-nourished, appears stated age, intubated EENT: PERRL, mucous membranes moist Neck: no JVD, no thyromegaly, no carotid bruit, supple Respiratory: Present: Clear to Ascultation Cardiology: regular, normal heart rate, S1S2, no murmurs Gastrointestinal: normal, normoactive bowel sounds Integumentary: other (No edema) - Lab 01/21/20 05:25 01/21/20 05:25 Most recent lab results ABG pH 7.382 pH Units (7.350-7.450) 01/20/20 04:21 ABG pCO2 46.1 mm Hg 01/20/20 04:21 ABG pO2 81.7 mm Hg (80.0-90.0) 01/20/20 04:21 ABG HCO3 26.8 mmol/L (20.0-26.0) H 01/20/20 04:21 ABG O2 Saturation 96.5 % (95.0-99.0) 01/20/20 04:21 Calcium 8.2 mg/dL (8.4-10.2) L 01/21/20 05:25 Magnesium 3.00 mg/dL (1.7-2.3) H 01/15/20 14:35 Medications & Allergies - Medications Allergies/Adverse Reactions: Allergies shellfish derived Allergy (Verified 01/11/20 18:37) Swelling Home Medications: Home Medications Medication Instructions Recorded Confirmed Last Taken Type glipiZIDE [Glipizide] 10 mg PO DAILY #30 tablet 08/15/18 01/13/20 Unknown Rx Active Medications: Generic Name Dose Route Start Last Admin Trade Name Freq PRN Reason Stop Dose Admin Acetaminophen 650 mg 01/11/20 18:55 01/20/20 16:49 Tylenol PO 650 mg Q4H PRN Administration Pain MILD(1-3)/Fever >100.5/CORDOVA Lipase/Protease/Amylase 1 each 01/19/20 18:[address] 10,500 Unit FEEDTUBE PRN PRN For Clogged Feeding Tube Atropine Sulfate 1 mg 01/15/20 12:00 01/18/20 12:19 Atropine 0.1% (Cardiac) IV 1 mg ONCE PRN Administration HR < 40 Clonidine HCl 0.1 mg 01/20/20 20:00 01/21/20 08:28 Catapres PO Not Given Q6H [facility] Dexamethasone 6 mg 01/13/20 12:00 01/21/20 09:30 Decadron IV 01/22/20 10:01 6 mg Q24HR ASHISH Administration Diltiazem HCl 60 mg 01/20/20 20:00 01/21/20 08:29 Cardizem Cd PO Not Given Q6H ASHISH Enalaprilat 1.25 mg 01/19/20 17:45 01/20/20 12:42 Vasotec IV 1.25 mg Q6HR PRN Administration Blood Pressure Enoxaparin Sodium 120 mg 01/13/20 12:00 01/21/20 09:30 Enoxaparin SUB-Q 120 mg Q12HR ASHISH Administration Famotidine 20 mg 01/21/20 10:00 01/21/20 09:30 Pepcid PO 20 mg BID ASHISH Administration Fentanyl 50 mcg 01/13/20 01:52 01/19/20 11:59 Sublimaze IV 50 mcg Q10MIN PRN Administration ANALGESIA Hydralazine HCl 10 mg 01/19/20 16:33 Apresoline IV Q4HR PRN SBP >160 Hydralazine HCl 100 mg 01/20/20 16:07 01/21/20 06:42 Apresoline PO Not Given Q8HR ASHISH Hydromorphone HCl 0.25 mg 01/11/20 18:59 01/20/20 16:48 Dilaudid IV 0.25 mg Q4H PRN Administration Pain, Moderate (4-6) Hydrophilic Ointment 1 applic 01/13/20 01:52 Vaseline Lip Therapy TP Q2HR PRN Dry Lips Fentanyl Citrate 2,000 mcg in 100 mls @ 5.69 mls/hr 01/13/20 02:00 01/21/20 08:32 Fentanyl Drip Premix IV 4 mcg/kg/hr TITR ASHISH 22.76 mls/hr Administration Protocol 1 MCG/KG/HR Midazolam HCl 100 mg/ Sodium 100 mls @ 2 mls/hr 01/13/20 02:00 01/20/20 20:44 Chloride IV 5 mg/hr TITR ASHISH 5 mls/hr Administration Protocol 2 MG/HR Dopamine HCl/Dextrose 800 mg in 250 mls @ 4.425 mls/hr 01/17/20 19:00 Intropin Drip 800 Mg/D5w 250 Ml IV TITR ASHISH Protocol 2 MCG/KG/MIN Labetalol HCl 200 mg/ Dextrose 200 mls @ 60 mls/hr 01/20/20 20:00 IV TITR ASHISH Protocol 1 MG/MIN Propofol 1,000 mg in 100 mls @ 3.429 mls/hr 01/20/20 20:00 01/21/20 04:31 Diprivan 10 Mg/Ml IV 5 mcg/kg/min TITR ASHISH 3.429 mls/hr Titration Protocol 5 MCG/KG/MIN Insulin Glargine 10 units 01/16/20 10:00 01/21/20 09:30 Lantus SUB-Q 10 units DAILY ASHISH Administration Insulin Human Lispro 0 unit 01/13/20 11:00 01/21/20 06:42 Humalog SUB-Q Not Given Q6H [facility] Protocol Labetalol HCl 10 mg 01/19/20 16:54 01/20/20 15:39 Labetalol IV 10 mg Q6H PRN Administration Blood Pressure Midazolam HCl 2 mg 01/13/20 01:52 Versed IV Q10MIN PRN Sedation Multi-Ingred Cream/Lotion/Oil/Oint 1 applic 01/13/20 01:52 Artificial Tears Ophth Oint OU Q4HR PRN Dry Eye(s) Nystatin 500,000 unit 01/20/20 18:00 01/21/20 09:30 Nystatin PO 01/25/20 17:59 500,000 unit QID ASHISH Administration Ondansetron HCl 4 mg 01/11/20 18:55 Zofran IV Q8H PRN Nausea And Vomiting Quetiapine Fumarate 200 mg 01/20/20 16:30 01/21/20 09:32 Seroquel PO 200 mg BID ASHISH Administration Simple Syrup 15 ml 01/19/20 18:10 Simple Syrup FEEDTUBE PRN PRN Hypoglycemia Simple Syrup 30 ml 01/19/20 18:10 Simple Syrup FEEDTUBE PRN PRN Hypoglycemia Sodium Bicarbonate 325 mg 01/19/20 18:10 Sodium Bicarbonate FEEDTUBE PRN PRN For Clogged Feeding Tube Sodium Chloride 10 ml 01/11/20 22:00 01/21/20 09:32 Sodium Chloride Flush Syringe 10 Ml IV 10 ml BID ASHISH Administration Sodium Chloride 10 ml 01/11/20 18:55 Sodium Chloride Flush Syringe 10 Ml IV PRN PRN LINE FLUSH Ziprasidone 10 mg 01/20/20 17:23 01/20/20 18:05 Geodon IM 10 mg Q6H PRN Administration Agitation
[2020-01-21] MEDS ORDERED: amLODIPine 10 MG TAB PO SCH (10:00)
--- NOTE | 2020-01-21 10:27 | Progress Note ---
Assessment and Plan Cultures: Blood culture 01/11/2020 no growth today Urine culture 01/11/2020 10-100,000 normal skin cristina Tracheal aspirate a 01/13/2020 no growth A/P: 39-year-old female past medical history morbid obesity, diabetes admitted with severe COVID-19 pneumonia. #Sepsis: secondary to COVID-19 pneumonia. #Acute hypoxemic respiratory failure: Likely secondary to COVID-19 infection. remains mechanically ventilated on minimal settings #COVID-19 pneumonia: Very high ddimer on admission. Completed ceftriaxone. Completed remdesivir. Markers are slowly improving. D-dimer improving. On steroids. #Morbid obesity: BMI=52. Associated with worse COVID-19 outcomes #Transaminitis: Likely related to COVID-19. Improving. #ARACELI: Resolved #Bradycardia: Resolved. Recs: -Continue dexamethasone 6 mg IV/PO daily to complete 10 days -day 9 of 10 -anticoagulation per protocol based on d-dimer Lynn Song MD, FACP [facility] ([facility] C: [phone] O: [phone] F: [phone] Subjective Date of service: 01/21/20 Principal diagnosis: Ac. hypoxemic resp failure; COVID infection; PNA; ARACELI; Thrombocytopenia Interval history: Febrile last night. Remains intubated, on the vent, minimal settings. Objective - Exam Narrative Exam: Physical Exam (reviewed in chart due to PPE conservation and minimize risk of transmission) Constitutional: intubated, sedated, on the vent Head, Ears, Nose: normocephalic, atraumatic Eyes: limited due to PPE conservation strategy Neck: intubated Oral: intubated Cardiovascular: limited due to PPE conservation strategy Respiratory: limited due to PPE conservation strategy GI: limited due to PPE conservation strategy Musculoskeletal: limited due to PPE conservation strategy Skin: limited due to PPE conservation strategy Hem/Lymphatic: limited due to PPE conservation strategy Psych: no agitation Neurological: sedated, intubated, on the vent, exam limited - Constitutional Vitals: Vital Signs Temp Pulse Resp BP Pulse Ox 99.0 F 78 12 98/50 99 01/21/20 08:00 01/21/20 10:15 01/21/20 10:15 01/21/20 10:15 01/21/20 10:15 Temperature -Last 24 Hours Temperature 99.0 F Temperature 99.2 F Temperature 98.9 F Temperature 101.1 F Temperature 100.2 F Temperature 98.4 F - Labs CBC & Chem 7: 01/21/20 05:25 01/21/20 05:25 Labs: Abnormal lab results 01/14/20 01/20/20 01/20/20 Range/Units Unknown 11:14 11:14 WBC (4.5-11.0) K/mm3 Hgb (10.1-14.3) gm/dl Hct (30.3-42.9) % MCV (79-97) fl MCH (28-32) pg D-Dimer 1221.96 H (0-234) ng/mlDDU Sodium (137-145) mmol/L Chloride (98-107) mmol/L Carbon Dioxide (22-30) mmol/L BUN (7-17) mg/dL Glucose (65-100) mg/dL POC Glucose (70-105) Calcium (8.4-10.2) mg/dL Ferritin 364.6 H (10.0-200.0) ng/mL Lactate Dehydrogenase (91-180) units/L C-Reactive Protein (0.00-1.30) mg/dL CIHCA Screen Positive H (Negative) 01/20/20 01/20/20 01/20/20 Range/Units 11:14 12:01 18:10 WBC (4.5-11.0) K/mm3 Hgb (10.1-14.3) gm/dl Hct (30.3-42.9) % MCV (79-97) fl MCH (28-32) pg D-Dimer (0-234) ng/mlDDU Sodium (137-145) mmol/L Chloride (98-107) mmol/L Carbon Dioxide (22-30) mmol/L BUN (7-17) mg/dL Glucose (65-100) mg/dL POC Glucose 260 H 317 H (70-105) Calcium (8.4-10.2) mg/dL Ferritin (10.0-200.0) ng/mL Lactate Dehydrogenase 403 H (91-180) units/L C-Reactive Protein 5.10 H (0.00-1.30) mg/dL CHICA Screen (Negative) 01/20/20 01/21/20 01/21/20 Range/Units 23:07 05:25 05:25 WBC 11.3 H (4.5-11.0) K/mm3 Hgb 9.1 L (10.1-14.3) gm/dl Hct 28.9 L (30.3-42.9) % MCV 77 L (79-97) fl MCH 24 L (28-32) pg D-Dimer (0-234) ng/mlDDU Sodium 147 H (137-145) mmol/L Chloride 111.0 H (98-107) mmol/L Carbon Dioxide 31 H D (22-30) mmol/L BUN 20 H (7-17) mg/dL Glucose 103 H (65-100) mg/dL POC Glucose 237 H (70-105) Calcium 8.2 L (8.4-10.2) mg/dL Ferritin (10.0-200.0) ng/mL Lactate Dehydrogenase (91-180) units/L C-Reactive Protein (0.00-1.30) mg/dL CHICA Screen (Negative) 01/21/20 Range/Units 05:42 WBC (4.5-11.0) K/mm3 Hgb (10.1-14.3) gm/dl Hct (30.3-42.9) % MCV (79-97) fl MCH (28-32) pg D-Dimer (0-234) ng/mlDDU Sodium (137-145) mmol/L Chloride (98-107) mmol/L Carbon Dioxide (22-30) mmol/L BUN (7-17) mg/dL Glucose (65-100) mg/dL POC Glucose 110 H (70-105) Calcium (8.4-10.2) mg/dL Ferritin (10.0-200.0) ng/mL Lactate Dehydrogenase (91-180) units/L C-Reactive Protein (0.00-1.30) mg/dL CHICA Screen (Negative)
--- NOTE | 2020-01-21 11:16 | Progress Note ---
Assessment and Plan - Patient Problems (1) Pneumonia Current Visit: Yes Status: Acute (2) Acute hypoxemic respiratory failure Current Visit: Yes Status: Acute Subjective Date of service: 01/21/20 Principal diagnosis: Shortness of breath Interval history: ON VENT",,,,,NO PE DUE TO COVID INFEC. Objective Vital Signs Temp Pulse Pulse Resp BP Pulse Ox 01/21/20 10:15 78 12 98/50 99 01/21/20 10:00 85 13 101/49 99 01/21/20 09:45 86 12 101/47 99 01/21/20 09:30 82 12 97/48 99 01/21/20 09:15 75 12 105/55 100 01/21/20 09:00 73 11 L 98/51 100 01/21/20 08:45 74 12 103/54 99 01/21/20 08:30 75 12 98/54 99 01/21/20 08:15 72 12 100/50 99 01/21/20 08:00 99.0 F 72 90 12 103/51 100 01/21/20 07:45 73 12 101/51 100 01/21/20 07:39 75 90 H 101/51 100 01/21/20 07:30 75 12 101/51 100 01/21/20 07:15 71 12 101/49 100 01/21/20 07:00 72 12 104/50 100 01/21/20 06:45 75 12 102/52 100 01/21/20 06:42 76 101/56 01/21/20 06:30 76 12 101/52 100 01/21/20 06:15 76 12 101/53 100 01/21/20 06:00 76 12 102/54 99 01/21/20 05:45 77 12 103/54 100 01/21/20 05:30 77 12 102/54 99 01/21/20 05:15 78 12 105/54 99 01/21/20 05:00 79 12 106/57 99 01/21/20 04:56 87 106/58 01/21/20 04:48 80 106/55 100 01/21/20 04:45 79 12 106/55 100 01/21/20 04:30 82 15 110/57 100 01/21/20 04:15 81 16 102/58 100 01/21/20 04:00 79 87 13 102/53 100 01/21/20 03:45 81 12 103/54 100 01/21/20 03:30 80 12 99/54 100 01/21/20 03:15 81 12 101/53 100 01/21/20 03:00 80 12 98/53 100 01/21/20 02:48 99.2 F 01/21/20 02:45 82 12 106/55 100 01/21/20 02:30 84 12 103/55 100 01/21/20 02:15 86 13 109/56 100 01/21/20 02:00 87 12 106/58 100 01/21/20 01:45 86 12 109/58 100 01/21/20 01:30 90 14 117/63 99 01/21/20 01:15 89 13 117/62 100 01/21/20 01:00 92 H 15 113/65 100 01/21/20 00:45 92 H 15 117/66 100 01/21/20 00:30 91 H 15 115/67 100 01/21/20 00:15 94 H 16 135/73 100 01/21/20 00:14 90 135/73 100 01/21/20 00:00 93 H 90 14 125/71 100 01/20/20 23:45 89 18 130/72 100 01/20/20 23:33 98.9 F 01/20/20 23:30 98 H 18 131/77 100 01/20/20 23:17 97 H 18 130/73 100 01/20/20 23:15 97 H 22 130/73 100 01/20/20 23:00 98 H 16 124/74 100 01/20/20 22:46 96 H 15 144/85 99 01/20/20 22:30 103 H 14 144/85 100 01/20/20 22:15 131 H 12 197/107 98 01/20/20 22:02 131 H 197/107 01/20/20 22:01 131 H 20 197/107 99 01/20/20 22:00 125 H 166/96 01/20/20 21:45 114 H 15 166/96 100 01/20/20 21:30 102 H 17 143/86 98 01/20/20 21:15 116 H 19 189/104 99 01/20/20 21:00 99 H 17 129/76 98 01/20/20 20:45 121 H 19 171/103 99 01/20/20 20:41 112 H 100 01/20/20 20:30 104 H 14 146/85 99 01/20/20 20:19 120 H 164/95 01/20/20 20:15 118 H 16 164/95 98 01/20/20 20:13 160 H 203/114 01/20/20 20:01 133 H 15 159/84 99 01/20/20 20:00 93 H 98 H 18 100 01/20/20 19:45 138 H 15 141/79 98 01/20/20 19:41 101.1 F H 01/20/20 19:30 111 H 22 141/79 98 01/20/20 19:15 119 H 27 H 221/107 98 01/20/20 19:01 148 H 32 H 221/107 01/20/20 18:45 167 H 18 178/98 01/20/20 18:30 121 H 24 178/98 01/20/20 18:15 127 H 25 H 186/104 01/20/20 18:00 125 H 24 169/97 01/20/20 17:49 01/20/20 17:45 134 H 28 H 174/100 01/20/20 17:30 122 H 25 H 179/98 01/20/20 17:18 20 01/20/20 17:15 134 H 19 198/110 99 01/20/20 17:00 124 H 22 198/110 01/20/20 16:48 24 01/20/20 16:45 110 H 16 184/97 01/20/20 16:36 122 H 205/112 01/20/20 16:30 121 H 19 205/112 99 01/20/20 16:15 117 H 21 199/104 01/20/20 16:03 110 H 217/103 01/20/20 16:01 111 H 18 205/112 100 01/20/20 16:00 100.2 F H 111 H 111 H 20 01/20/20 15:50 123 H 186/104 01/20/20 15:45 145 H 17 180/117 99 01/20/20 15:39 135 H 214/119 01/20/20 15:31 151 H 18 168/92 01/20/20 15:30 159 H 29 H 168/92 99 01/20/20 15:15 107 H 18 168/92 01/20/20 15:00 117 H 15 144/88 100 01/20/20 14:45 112 H 18 155/87 01/20/20 14:30 108 H 18 164/82 01/20/20 14:15 127 H 12 154/94 01/20/20 14:05 124 H 151/93 01/20/20 14:00 122 H 21 151/93 01/20/20 13:45 107 H 19 164/92 01/20/20 13:30 101 H 17 162/91 01/20/20 13:15 92 H 15 145/77 01/20/20 13:04 20 01/20/20 13:00 106 H 19 159/97 01/20/20 12:45 99 H 17 156/85 01/20/20 12:42 102 H 176/104 01/20/20 12:34 20 01/20/20 12:30 127 H 25 H 176/104 01/20/20 12:15 121 H 21 157/96 01/20/20 12:00 98.4 F 111 H 108 H 21 160/88 01/20/20 11:54 108 H 17 151/89 01/20/20 11:45 119 H 15 151/89 01/20/20 11:30 114 H 19 146/84 01/20/20 11:15 116 H 17 142/89 100 - Physical Examination Narrative exam: ON VENT'. PE DEFFERED DUE TO COVID. - Labs and Meds Cardiac Enzymes 01/20/20 Range/Units 11:14 Lactate Dehydrogenase 403 H (91-180) units/L CBC 01/21/20 Range/Units 05:25 WBC 11.3 H (4.5-11.0) K/mm3 RBC 3.77 (3.65-5.03) M/mm3 Hgb 9.1 L (10.1-14.3) gm/dl Hct 28.9 L (30.3-42.9) % Plt Count 260 (140-440) K/mm3 Comprehensive Metabolic Panel 01/21/20 Range/Units 05:25 Sodium 147 H (137-145) mmol/L Potassium 3.6 (3.6-5.0) mmol/L Chloride 111.0 H (98-107) mmol/L Carbon Dioxide 31 H D (22-30) mmol/L BUN 20 H (7-17) mg/dL Creatinine 0.7 (0.6-1.2) mg/dL Glucose 103 H (65-100) mg/dL Calcium 8.2 L (8.4-10.2) mg/dL - Allied health notes Allied health notes reviewed: RT
[2020-01-21] MEDS: dilTIAZem 60 MG TAB PO SCH ×2 (12:28→18:18)
--- NOTE | 2020-01-21 12:56 | Progress Note ---
Assessment and Plan Acute hypoxemic respiratory failure orally [place]ub[place] [facility] [place] Severe COVID infection Multifocal pneumonia Extreme obesity ARACELI- vasomotor nephropathy/COVID Thrombocytopenia Hyperglycemia Hypernatremia - increased Seroquel to 300 mg bid - add prn xanav for anxiolysis - stopped propopfol during SBT's - continue hydralazine to 100 mg p.o. q8h - on Cardizem 60 mg p.o. q6h - continue labetalol 10 mg IV q6h prn SBP > 160 mmHg (hold for pulse < 60) - keep set rate at 12/min - complete Nystatin for oral thrush - continue to avoid Qt prolonging drugs otherwise - continue care as below; - continue enteric nutrition at goal rate as tolerated - Free water flushes for hypernatremia, monitor closely - continue to avoid nephrotoxins, closely monitor renal function, renally dose all medications - Fluid conservative measures - VAP bundle addressed - CXR, ABG prn - Therapeutic anticoagulation with Lovenox - Permissive hypercapnia is acceptable - continue bronchodilators with pulmonary hygiene per RT - Monitor airway pressures, lung protective strategies - wean off benzodiazepines as soon as possible , reduce the possibility of delirium - prn analgesia per CPOT score - sedation prn for target RASS -2 to -3 - Continue to wean supplemental oxygen for target O2 sats > 92% - conservative fluid management measures as tolerated by hemodynamics and renal function - Bronchodilators with pulmonary hygiene per RT - Antibiotics for CAP , complete course. ID following - Accuchecks with glycemic control per SSI (While critically ill target blood glucose of 140-180 mg/dL; avoid hypoglycemia) - Maintenance of sleep-wake cycle, avoid delirium - Aspiration precautions, HOB >40 - Stress ulcer prophylaxis - Mobility protocol, off loading and skin assessment for pressure ulcer prevention - Monitor hemodynamics closely - Supportive transfusions as indicated to keep HgB >7g/dL COVID SPECIFIC INTERVENTIONS: - Airborne, contact isolation for COVID per facility protocols - IV steroids-dexamethasone - Trend d-dimer,and other inflammatory markers per facility protocol - Evaluate for Convalescent plasma therapy- patient is blood less medicine and will not accept COVID convalescent plasma - complete Remdesivir dosing - completed ceftriaxone 2 gm IV qday and azithromycin 500 mg PO qday for empiric CAP coverage - Monitor QTc Discussed with the ICU team-RT,RN Life threatening condition- COVID 19 ARDS acute hypoxemic respiratory failure on [facility] [place] Mortality/Morbidity- High Complexity of medical decision making- High CONDITION: CRITICAL PROGNOSIS: GUARDED CODE STATUS: FULL CODE The high probability of a clinically significant, sudden or life-threatening deterioration of the [respiratory & neurology, renal ] system(s) required my full and direct attention, intervention and personal management. The aggregate critical care time was [34] minutes without overlap. Time includes spent on; [x] Data Review and interpretation [x] Patient assessment and monitoring of vital signs [x] Documentation [x] Medication orders and management Subjective Date of service: 01/21/20 Principal diagnosis: Ac. hypoxemic resp failure; COVID infection; PNA; ARACELI; Thrombocytopenia Interval history: Patient is seen today for: Acute hypoxemic respiratory failure; Severe COVID infection; Multifocal pneumonia; Extreme obesity; ARACELI; Thrombocytopenia Seen and examined at bedside; 24hour events reviewed; nursing and respiratory care staff consulted; no adverse overnight events reported to me; resting peacefully in bed; remains on MVS still with SVT essentially; denies chest pains or [palpitations; remains anxious; no N/V/F/C; BP's better controlled overall with addition of clonidine and cardizem Objective Vital Signs - 12hr 01/21/20 01/21/20 01/21/20 01:00 01:15 01:30 Temperature Pulse Rate 92 H 89 90 Pulse Rate [ From Monitor] Respiratory 15 13 14 Rate Blood Pressure 113/65 117/62 117/63 O2 Sat by Pulse 100 100 99 Oximetry 01/21/20 01/21/20 01/21/20 01:45 02:00 02:15 Temperature Pulse Rate 86 87 86 Pulse Rate [ From Monitor] Respiratory 12 12 13 Rate Blood Pressure 109/58 106/58 109/56 O2 Sat by Pulse 100 100 100 Oximetry 01/21/20 01/21/20 01/21/20 02:30 02:45 02:48 Temperature 99.2 F Pulse Rate 84 82 Pulse Rate [ From Monitor] Respiratory 12 12 Rate Blood Pressure 103/55 106/55 O2 Sat by Pulse 100 100 Oximetry 01/21/20 01/21/20 01/21/20 03:00 03:15 03:30 Temperature Pulse Rate 80 81 80 Pulse Rate [ From Monitor] Respiratory 12 12 12 Rate Blood Pressure 98/53 101/53 99/54 O2 Sat by Pulse 100 100 100 Oximetry 01/21/20 01/21/20 01/21/20 03:45 04:00 04:15 Temperature Pulse Rate 81 79 81 Pulse Rate [ 87 From Monitor] Respiratory 12 13 16 Rate Blood Pressure 103/54 102/53 102/58 O2 Sat by Pulse 100 100 100 Oximetry 01/21/20 01/21/20 01/21/20 04:30 04:45 04:48 Temperature Pulse Rate 82 79 80 Pulse Rate [ From Monitor] Respiratory 15 12 Rate Blood Pressure 110/57 106/55 106/55 O2 Sat by Pulse 100 100 100 Oximetry 01/21/20 01/21/20 01/21/20 04:56 05:00 05:15 Temperature Pulse Rate 87 79 78 Pulse Rate [ From Monitor] Respiratory 12 12 Rate Blood Pressure 106/58 106/57 105/54 O2 Sat by Pulse 99 99 Oximetry 01/21/20 01/21/20 01/21/20 05:30 05:45 06:00 Temperature Pulse Rate 77 77 76 Pulse Rate [ From Monitor] Respiratory 12 12 12 Rate Blood Pressure 102/54 103/54 102/54 O2 Sat by Pulse 99 100 99 Oximetry 01/21/20 01/21/20 01/21/20 06:15 06:30 06:42 Temperature Pulse Rate 76 76 76 Pulse Rate [ From Monitor] Respiratory 12 12 Rate Blood Pressure 101/53 101/52 101/56 O2 Sat by Pulse 100 100 Oximetry 01/21/20 01/21/20 01/21/20 06:45 07:00 07:15 Temperature Pulse Rate 75 72 71 Pulse Rate [ From Monitor] Respiratory 12 12 12 Rate Blood Pressure 102/52 104/50 101/49 O2 Sat by Pulse 100 100 100 Oximetry 01/21/20 01/21/20 01/21/20 07:30 07:39 07:45 Temperature Pulse Rate 75 75 73 Pulse Rate [ From Monitor] Respiratory 12 90 H 12 Rate Blood Pressure 101/51 101/51 101/51 O2 Sat by Pulse 100 100 100 Oximetry 01/21/20 01/21/20 01/21/20 08:00 08:15 08:30 Temperature 99.0 F Pulse Rate 72 72 75 Pulse Rate [ 90 From Monitor] Respiratory 12 12 12 Rate Blood Pressure 103/51 100/50 98/54 O2 Sat by Pulse 100 99 99 Oximetry 01/21/20 01/21/20 01/21/20 08:45 09:00 09:15 Temperature Pulse Rate 74 73 75 Pulse Rate [ From Monitor] Respiratory 12 11 L 12 Rate Blood Pressure 103/54 98/51 105/55 O2 Sat by Pulse 99 100 100 Oximetry 01/21/20 01/21/20 01/21/20 09:30 09:45 10:00 Temperature Pulse Rate 82 86 85 Pulse Rate [ From Monitor] Respiratory 12 12 13 Rate Blood Pressure 97/48 101/47 101/49 O2 Sat by Pulse 99 99 99 Oximetry 01/21/20 01/21/20 01/21/20 10:15 11:43 12:28 Temperature Pulse Rate 78 107 H 107 H Pulse Rate [ From Monitor] Respiratory 12 5 L Rate Blood Pressure 98/50 135/75 168/79 O2 Sat by Pulse 99 99 Oximetry Constitutional: no acute distress, alert, other (Morbidly obese AAW, supine ETT to MVS) Eyes: non-icteric ENT: oropharynx moist, other (ETT 23 cm CHAD) Neck: supple, no lymphadenopathy, no JVD Effort: mildly labored Ascultation: Bilateral: diminished breath sounds, rhonchi Percussion: Bilateral: not dull Cardiovascular: regular rate and rhythm, other Gastrointestinal: normoactive bowel sounds, soft, non-tender, non-distended (protuberant) Integumentary: normal Extremities: no cyanosis, no edema, pulses normal, no ischemia or petechiae Neurologic: non-focal exam, pupils equal and round, CN II-XII normal, motor strength normal and Psychiatric: anxious CBC and BMP: 01/21/20 05:25 01/21/20 05:25 ABG, PT/INR, D-dimer: ABG ABG pH 7.382 pH Units (7.350-7.450) 01/20/20 04:21 POC ABG pCO2 33.9 mmHg (32.0-48.0) 01/16/20 03:33 ABG pCO2 46.1 mm Hg 01/20/20 04:21 POC ABG pO2 86.3 mmHg (83-108) 01/16/20 03:33 ABG pO2 81.7 mm Hg (80.0-90.0) 01/20/20 04:21 POC ABG HCO3 24.5 01/16/20 03:33 ABG O2 Saturation 96.5 % (95.0-99.0) 01/20/20 04:21 PT/INR, D-dimer D-Dimer 1221.96 ng/mlDDU (0-234) H 01/20/20 11:14 Abnormal lab findings: Abnormal Labs 01/11/20 01/11/20 01/11/20 17:22 17:22 17:22 WBC RBC Hgb Hct MCV MCH RDW Plt Count Lymph % (Auto) [place] # Seg Neutrophils % Seg Neuts % (Manual) Lymphocytes % (Manual) Seg Neutrophils # Seg Neutrophils # Man Lymphocytes # (Manual) D-Dimer 622.52 H ABG pH POC ABG pCO2 POC ABG pO2 ABG pO2 ABG O2 Saturation ABG Base Excess ABG Oxyhemoglobin ABG HCO3 ABG Hemoglobin Oxyhemoglobin Sodium Potassium Chloride 97.6 L Carbon Dioxide 18 L BUN Creatinine Glucose 199 H POC Glucose Lactic Acid 2.20 H* Calcium Ferritin AST 68 H Magnesium Lactate Dehydrogenase C-Reactive Protein Total Protein Albumin 3.0 L Hofas-3-Vxuwqkffu Sxtgj-8-Aneiqoewl PEP Interpretation Triglycerides TSH CHICA Screen Complement C4 Coronavirus (PCR) 01/11/20 01/11/20 01/11/20 17:22 17:22 23:29 WBC RBC Hgb Hct MCV MCH RDW Plt Count Lymph % (Auto) [place] # Seg Neutrophils % Seg Neuts % (Manual) Lymphocytes % (Manual) Seg Neutrophils # Seg Neutrophils # Man Lymphocytes # (Manual) D-Dimer ABG pH POC ABG pCO2 POC ABG pO2 ABG pO2 ABG O2 Saturation ABG Base Excess ABG Oxyhemoglobin ABG HCO3 ABG Hemoglobin Oxyhemoglobin Sodium Potassium Chloride Carbon Dioxide BUN Creatinine Glucose 202 H POC Glucose Lactic Acid 2.10 H* Calcium Ferritin 270.3 H AST Magnesium Lactate Dehydrogenase 610 H C-Reactive Protein 23.80 H Total Protein Albumin Wacld-8-Kithhfbfu Mpmwk-2-Lswhgrcvi PEP Interpretation Triglycerides TSH CHICA Screen Complement C4 Coronavirus (PCR) 01/12/20 01/12/20 01/12/20 07:07 07:07 09:00 WBC RBC 5.31 H Hgb Hct MCV 76 L MCH 25 L RDW 15.5 H Plt Count Lymph % (Auto) 11.2 L [place] # Seg Neutrophils % 85.2 H Seg Neuts % (Manual) Lymphocytes % (Manual) Seg Neutrophils # 9.2 H Seg Neutrophils # Man Lymphocytes # (Manual) D-Dimer ABG pH POC ABG pCO2 POC ABG pO2 ABG pO2 ABG O2 Saturation ABG Base Excess ABG Oxyhemoglobin ABG HCO3 ABG Hemoglobin Oxyhemoglobin Sodium Potassium Chloride Carbon Dioxide 21 L BUN 23 H Creatinine Glucose 206 H POC Glucose Lactic Acid Calcium Ferritin AST Magnesium Lactate Dehydrogenase C-Reactive Protein Total Protein Albumin Yakln-1-Siwzqrucf Wzune-0-Iwtmentqi PEP Interpretation Triglycerides TSH [place] Screen Complement C4 Coronavirus (PCR) Positive A 01/13/20 01/13/20 01/13/20 01:02 04:45 05:10 WBC RBC Hgb Hct MCV MCH RDW Plt Count Lymph % (Auto) [place] # Seg Neutrophils % Seg Neuts % (Manual) Lymphocytes % (Manual) Seg Neutrophils # Seg Neutrophils # Man Lymphocytes # (Manual) D-Dimer > 40553 H ABG pH 7.19 L POC ABG pCO2 56.2 H POC ABG pO2 44.3 L 62.5 L ABG pO2 ABG O2 Saturation ABG Base Excess ABG Oxyhemoglobin 77.5 L 86.5 L ABG HCO3 ABG Hemoglobin Oxyhemoglobin Sodium Potassium Chloride Carbon Dioxide BUN Creatinine Glucose POC Glucose Lactic Acid Calcium Ferritin AST Magnesium Lactate Dehydrogenase C-Reactive Protein Total Protein Albumin Ixaks-8-[place] Bjbee-6-Llcnjdrvd PEP Interpretation Triglycerides TSH [place] Screen Complement C4 Coronavirus (PCR) 01/13/20 01/13/20 01/13/20 05:10 05:54 12:07 WBC RBC Hgb Hct MCV MCH RDW Plt Count Lymph % (Auto) [place] # Seg Neutrophils % Seg Neuts % (Manual) Lymphocytes % (Manual) Seg Neutrophils # Seg Neutrophils # Man Lymphocytes # (Manual) D-Dimer ABG pH POC ABG pCO2 POC ABG pO2 ABG pO2 ABG O2 Saturation ABG Base Excess ABG Oxyhemoglobin ABG HCO3 ABG Hemoglobin Oxyhemoglobin Sodium Potassium Chloride Carbon Dioxide BUN Creatinine Glucose POC Glucose 356 H 309 H Lactic Acid Calcium Ferritin AST Magnesium Lactate Dehydrogenase 999 H C-Reactive Protein Total Protein Albumin Cabpj-3-Nefrwkrrw Rambz-9-Stvzdkvyf PEP Interpretation Triglycerides TSH [place]ICA Screen Complement C4 Coronavirus (PCR) 01/13/20 01/13/20 01/13/20 12:54 18:46 18:50 WBC 14.0 H RBC Hgb Hct MCV 76 L MCH 25 L RDW 15.8 H Plt Count 113 L Lymph % (Auto) [place] # Seg Neutrophils % Seg Neuts % (Manual) 88.0 H Lymphocytes % (Manual) 2.0 L Seg Neutrophils # Seg Neutrophils # Man 12.3 H Lymphocytes # (Manual) 0.3 L D-Dimer ABG pH 7.290 L POC ABG pCO2 POC ABG pO2 ABG pO2 60.2 L ABG O2 Saturation 88.6 L ABG Base Excess -2.7 L ABG Oxyhemoglobin ABG HCO3 ABG Hemoglobin Oxyhemoglobin 87.1 L Sodium Potassium Chloride Carbon Dioxide BUN Creatinine Glucose POC Glucose 268 H Lactic Acid Calcium Ferritin AST Magnesium Lactate Dehydrogenase C-Reactive Protein Total Protein Albumin Gcpsh-5-Cyrtrtdbj Zyffi-5-Ldvensrat PEP Interpretation Triglycerides TSH [place] Screen Complement C4 Coronavirus (PCR) 01/13/20 01/14/20 01/14/20 23:53 00:31 03:13 WBC RBC Hgb Hct MCV MCH RDW Plt Count Lymph % (Auto) [place] # Seg Neutrophils % Seg Neuts % (Manual) Lymphocytes % (Manual) Seg Neutrophils # Seg Neutrophils # Man Lymphocytes # (Manual) D-Dimer ABG pH POC ABG pCO2 POC ABG pO2 ABG pO2 132.6 H ABG O2 Saturation ABG Base Excess -2.7 L ABG Oxyhemoglobin ABG HCO3 ABG Hemoglobin Oxyhemoglobin Sodium Potassium 5.3 H Chloride Carbon Dioxide BUN 55 H Creatinine 1.6 H Glucose 268 H POC Glucose 259 H Lactic Acid Calcium Ferritin AST 46 H Magnesium Lactate Dehydrogenase C-Reactive Protein Total Protein 6.1 L Albumin 3.1 L Cmczr-9-Kdklvyegq Mgcch-2-Fwhnsqnar PEP Interpretation Triglycerides TSH [place] Screen Complement C4 Coronavirus (PCR) 01/14/20 01/14/20 01/14/20 05:23 06:06 09:47 WBC RBC Hgb Hct MCV MCH RDW Plt Count Lymph % (Auto) [place] # Seg Neutrophils % Seg Neuts % (Manual) Lymphocytes % (Manual) Seg Neutrophils # Seg Neutrophils # Man Lymphocytes # (Manual) D-Dimer > 16225 H ABG pH POC ABG pCO2 POC ABG pO2 ABG pO2 ABG O2 Saturation ABG Base Excess ABG Oxyhemoglobin ABG HCO3 ABG Hemoglobin Oxyhemoglobin Sodium Potassium 5.5 H Chloride 107.6 H Carbon Dioxide 21 L BUN 58 H Creatinine 1.7 H Glucose 231 H POC Glucose 231 H Lactic Acid Calcium Ferritin AST Magnesium Lactate Dehydrogenase C-Reactive Protein Total Protein Albumin Pldtx-7-Bnqowmcch Fbitn-8-Mhmnkywbl PEP Interpretation Triglycerides TSH [place] Screen Complement C4 Coronavirus (PCR) 01/14/20 01/14/20 01/14/20 09:47 12:20 16:00 WBC RBC Hgb Hct MCV MCH RDW Plt Count Lymph % (Auto) [place] # Seg Neutrophils % Seg Neuts % (Manual) Lymphocytes % (Manual) Seg Neutrophils # Seg Neutrophils # Man Lymphocytes # (Manual) D-Dimer ABG pH POC ABG pCO2 POC ABG pO2 ABG pO2 69.3 L ABG O2 Saturation 94.4 L ABG Base Excess ABG Oxyhemoglobin ABG HCO3 ABG Hemoglobin Oxyhemoglobin 92.7 L Sodium Potassium Chloride 107.2 H Carbon Dioxide 21 L BUN 63 H Creatinine 1.5 H Glucose 217 H POC Glucose 238 H Lactic Acid Calcium Ferritin AST Magnesium Lactate Dehydrogenase C-Reactive Protein Total Protein 6.0 L Albumin 2.7 L Yjnew-6-Lgqupzehp Qvwyr-5-Mfxdfqoak PEP Interpretation Triglycerides TSH [place] Screen Complement C4 Coronavirus (PCR) 01/14/20 01/14/20 01/14/20 18:24 19:01 23:50 WBC RBC Hgb Hct MCV MCH RDW Plt Count Lymph % (Auto) [place] # Seg Neutrophils % Seg Neuts % (Manual) Lymphocytes % (Manual) Seg Neutrophils # Seg Neutrophils # Man Lymphocytes # (Manual) D-Dimer ABG pH POC ABG pCO2 POC ABG pO2 ABG pO2 ABG O2 Saturation ABG Base Excess ABG Oxyhemoglobin ABG HCO3 ABG Hemoglobin Oxyhemoglobin Sodium 146 H Potassium 5.9 H Chloride 108.0 H Carbon Dioxide 20 L BUN 61 H Creatinine 1.4 H Glucose 254 H POC Glucose 228 H 321 H Lactic Acid Calcium Ferritin AST Magnesium Lactate Dehydrogenase C-Reactive Protein Total Protein Albumin Pckub-8-Xgsfhljle Udjif-2-Aoxomtjys PEP Interpretation Triglycerides TSH [place] Screen Complement C4 Coronavirus (PCR) 01/14/20 01/14/20 01/14/20 Unknown Unknown Unknown WBC RBC Hgb Hct MCV MCH RDW Plt Count Lymph % (Auto) [place] # Seg Neutrophils % Seg Neuts % (Manual) Lymphocytes % (Manual) Seg Neutrophils # Seg Neutrophils # Man Lymphocytes # (Manual) D-Dimer ABG pH POC ABG pCO2 POC ABG pO2 ABG pO2 ABG O2 Saturation ABG Base Excess ABG Oxyhemoglobin ABG HCO3 ABG Hemoglobin Oxyhemoglobin Sodium Potassium Chloride Carbon Dioxide BUN Creatinine Glucose POC Glucose Lactic Acid Calcium Ferritin AST Magnesium Lactate Dehydrogenase C-Reactive Protein Total Protein Albumin 2.8 L Heudu-8-Rwfasqlrw 0.6 H Jvxcp-7-Haqgmrqto 1.1 H PEP Interpretation see below H Triglycerides TSH CHICA Screen Positive H Complement C4 76 H Coronavirus (PCR) 01/15/20 01/15/20 01/15/20 03:37 03:57 03:57 WBC 14.9 H RBC Hgb Hct MCV 75 L MCH 25 L RDW 15.4 H Plt Count Lymph % (Auto) 8.6 L [place] # 1.0 H Seg Neutrophils % 84.2 H Seg Neuts % (Manual) Lymphocytes % (Manual) Seg Neutrophils # 12.5 H Seg Neutrophils # Man Lymphocytes # (Manual) D-Dimer ABG pH 7.480 H POC ABG pCO2 POC ABG pO2 76.7 L ABG pO2 ABG O2 Saturation ABG Base Excess ABG Oxyhemoglobin ABG HCO3 ABG Hemoglobin Oxyhemoglobin Sodium 152 H Potassium Chloride 113.0 H Carbon Dioxide BUN 52 H Creatinine Glucose 288 H POC Glucose Lactic Acid Calcium Ferritin AST Magnesium Lactate Dehydrogenase C-Reactive Protein Total Protein Albumin Spubb-3-Hzafqxfdm Lgmxn-5-Sclvytvuw PEP Interpretation Triglycerides TSH [place] Screen Complement C4 Coronavirus (PCR) 01/15/20 01/15/20 01/15/20 05:50 11:56 14:35 WBC RBC Hgb Hct MCV MCH RDW Plt Count Lymph % (Auto) [place] # Seg Neutrophils % Seg Neuts % (Manual) Lymphocytes % (Manual) Seg Neutrophils # Seg Neutrophils # Man Lymphocytes # (Manual) D-Dimer ABG pH POC ABG pCO2 POC ABG pO2 ABG pO2 ABG O2 Saturation ABG Base Excess ABG Oxyhemoglobin ABG HCO3 ABG Hemoglobin Oxyhemoglobin Sodium Potassium Chloride Carbon Dioxide BUN Creatinine Glucose POC Glucose 259 H 162 H Lactic Acid Calcium Ferritin 332.4 H AST Magnesium Lactate Dehydrogenase C-Reactive Protein Total Protein Albumin Thdgq-3-Afonwvwub Bufwp-4-Wzcwblnka PEP Interpretation Triglycerides TSH [place] Screen Complement C4 Coronavirus (PCR) 01/15/20 01/15/20 01/15/20 14:35 14:35 14:35 WBC RBC Hgb Hct MCV MCH RDW Plt Count Lymph % (Auto) [place] # Seg Neutrophils % Seg Neuts % (Manual) Lymphocytes % (Manual) Seg Neutrophils # Seg Neutrophils # Man Lymphocytes # (Manual) D-Dimer ABG pH POC ABG pCO2 POC ABG pO2 ABG pO2 ABG O2 Saturation ABG Base Excess ABG Oxyhemoglobin ABG HCO3 ABG Hemoglobin Oxyhemoglobin Sodium Potassium Chloride Carbon Dioxide BUN Creatinine Glucose POC Glucose Lactic Acid Calcium Ferritin AST Magnesium 3.00 H Lactate Dehydrogenase 747 H C-Reactive Protein 7.60 H Total Protein Albumin Neeyk-9-Ldhrphyob Oiulj-0-Itlysxtjw PEP Interpretation Triglycerides TSH 0.221 L CHICA Screen Complement C4 Coronavirus (PCR) 01/15/20 01/15/20 01/15/20 16:18 17:31 23:26 WBC RBC Hgb Hct MCV MCH RDW Plt Count Lymph % (Auto) [place] # Seg Neutrophils % Seg Neuts % (Manual) Lymphocytes % (Manual) Seg Neutrophils # Seg Neutrophils # Man Lymphocytes # (Manual) D-Dimer ABG pH 7.510 H POC ABG pCO2 POC ABG pO2 76.6 L ABG pO2 ABG O2 Saturation ABG Base Excess ABG Oxyhemoglobin ABG HCO3 ABG Hemoglobin Oxyhemoglobin Sodium Potassium Chloride Carbon Dioxide BUN Creatinine Glucose POC Glucose 239 H 226 H Lactic Acid Calcium Ferritin AST Magnesium Lactate Dehydrogenase C-Reactive Protein Total Protein Albumin Ckjgn-0-Dayuvqouy Glsyg-6-Gmdqwyngh PEP Interpretation Triglycerides TSH [place] Screen Complement C4 Coronavirus (PCR) 01/16/20 01/16/20 01/16/20 03:33 04:00 04:00 WBC 13.6 H RBC Hgb Hct MCV 74 L MCH 25 L RDW 15.4 H Plt Count Lymph % (Auto) [place] # Seg Neutrophils % Seg Neuts % (Manual) 91.0 H Lymphocytes % (Manual) 5.0 L Seg Neutrophils # Seg Neutrophils # Man 12.4 H Lymphocytes # (Manual) 0.7 L D-Dimer ABG pH 7.477 H POC ABG pCO2 POC ABG pO2 ABG pO2 ABG O2 Saturation ABG Base Excess ABG Oxyhemoglobin ABG HCO3 ABG Hemoglobin Oxyhemoglobin Sodium 151 H Potassium Chloride 113.8 H Carbon Dioxide BUN 45 H Creatinine Glucose 213 H POC Glucose Lactic Acid Calcium Ferritin AST Magnesium Lactate Dehydrogenase C-Reactive Protein Total Protein Albumin Zqdug-1-Sylhpkmgz Llicc-4-Aifwotalm PEP Interpretation Triglycerides TSH [place] Screen Complement C4 Coronavirus (PCR) 01/16/20 01/16/20 01/16/20 05:45 12:02 17:27 WBC RBC Hgb Hct MCV MCH RDW Plt Count Lymph % (Auto) [place] # Seg Neutrophils % Seg Neuts % (Manual) Lymphocytes % (Manual) Seg Neutrophils # Seg Neutrophils # Man Lymphocytes # (Manual) D-Dimer ABG pH POC ABG pCO2 POC ABG pO2 ABG pO2 ABG O2 Saturation ABG Base Excess ABG Oxyhemoglobin ABG HCO3 ABG Hemoglobin Oxyhemoglobin Sodium Potassium Chloride Carbon Dioxide BUN Creatinine Glucose POC Glucose 202 H 186 H 240 H Lactic Acid Calcium Ferritin AST Magnesium Lactate Dehydrogenase C-Reactive Protein Total Protein Albumin Bqzcg-8-Hmgsqmbah Kxeua-5-Vyrubbrtt PEP Interpretation Triglycerides TSH [place] Screen Complement C4 Coronavirus (PCR) 01/17/20 01/17/20 01/17/20 00:07 04:50 05:46 WBC RBC Hgb Hct MCV MCH RDW Plt Count Lymph % (Auto) [place] # Seg Neutrophils % Seg Neuts % (Manual) Lymphocytes % (Manual) Seg Neutrophils # Seg Neutrophils # Man Lymphocytes # (Manual) D-Dimer ABG pH 7.494 H POC ABG pCO2 POC ABG pO2 ABG pO2 73.4 L ABG O2 Saturation ABG Base Excess ABG Oxyhemoglobin ABG HCO3 ABG Hemoglobin Oxyhemoglobin 94.4 L Sodium Potassium Chloride Carbon Dioxide BUN Creatinine Glucose POC Glucose 207 H 170 H Lactic Acid Calcium Ferritin AST Magnesium Lactate Dehydrogenase C-Reactive Protein Total Protein Albumin Kzkph-6-Srlgnvytk Utacn-5-Ebpvqvuzw PEP Interpretation Triglycerides TSH [place] Screen Complement C4 Coronavirus (PCR) 01/17/20 01/17/20 01/17/20 06:00 06:00 11:32 WBC 11.5 H RBC Hgb Hct MCV 75 L MCH 25 L RDW 15.5 H Plt Count Lymph % (Auto) [place] # Seg Neutrophils % Seg Neuts % (Manual) 81.0 H Lymphocytes % (Manual) 10.0 L Seg Neutrophils # Seg Neutrophils # Man 9.3 H Lymphocytes # (Manual) D-Dimer ABG pH POC ABG pCO2 POC ABG pO2 ABG pO2 ABG O2 Saturation ABG Base Excess ABG Oxyhemoglobin ABG HCO3 ABG Hemoglobin Oxyhemoglobin Sodium 151 H Potassium Chloride 113.6 H Carbon Dioxide BUN 40 H Creatinine Glucose 149 H POC Glucose 229 H Lactic Acid Calcium Ferritin AST Magnesium Lactate Dehydrogenase C-Reactive Protein Total Protein Albumin Vggez-2-Egljrczhc Ndezd-0-Blpewyepv PEP Interpretation Triglycerides TSH [place] Screen Complement C4 Coronavirus (PCR) 01/17/20 01/17/20 01/17/20 13:40 13:40 13:40 WBC RBC Hgb Hct MCV MCH RDW Plt Count Lymph % (Auto) [place] # Seg Neutrophils % Seg Neuts % (Manual) Lymphocytes % (Manual) Seg Neutrophils # Seg Neutrophils # Man Lymphocytes # (Manual) D-Dimer 1878.79 H ABG pH POC ABG pCO2 POC ABG pO2 ABG pO2 ABG O2 Saturation ABG Base Excess ABG Oxyhemoglobin ABG HCO3 ABG Hemoglobin Oxyhemoglobin Sodium Potassium Chloride Carbon Dioxide BUN Creatinine Glucose POC Glucose Lactic Acid Calcium Ferritin 322.8 H AST Magnesium Lactate Dehydrogenase 587 H C-Reactive Protein 4.60 H Total Protein Albumin Xxdzd-3-Fwspdamvr Luwll-6-Jqhviuogy PEP Interpretation Triglycerides TSH [place] Screen Complement C4 Coronavirus (PCR) 01/17/20 01/17/20 01/17/20 17:45 21:30 23:53 WBC RBC Hgb Hct MCV MCH RDW Plt Count Lymph % (Auto) [place] # Seg Neutrophils % Seg Neuts % (Manual) Lymphocytes % (Manual) Seg Neutrophils # Seg Neutrophils # Man Lymphocytes # (Manual) D-Dimer ABG pH POC ABG pCO2 POC ABG pO2 ABG pO2 179.6 H ABG O2 Saturation 99.2 H ABG Base Excess ABG Oxyhemoglobin ABG HCO3 ABG Hemoglobin 11.8 L Oxyhemoglobin Sodium Potassium Chloride Carbon Dioxide BUN Creatinine Glucose POC Glucose 364 H 272 H Lactic Acid Calcium Ferritin AST Magnesium Lactate Dehydrogenase C-Reactive Protein Total Protein Albumin Aqifn-5-Zzpopsfnj Gyhum-7-Lxsosrvue PEP Interpretation Triglycerides TSH [place] Screen Complement C4 Coronavirus (PCR) 01/18/20 01/18/20 01/18/20 03:40 04:00 05:00 WBC RBC Hgb Hct MCV MCH RDW Plt Count Lymph % (Auto) [place] # Seg Neutrophils % Seg Neuts % (Manual) Lymphocytes % (Manual) Seg Neutrophils # Seg Neutrophils # Man Lymphocytes # (Manual) D-Dimer ABG pH POC ABG pCO2 POC ABG pO2 ABG pO2 162.6 H ABG O2 Saturation ABG Base Excess ABG Oxyhemoglobin ABG HCO3 ABG Hemoglobin Oxyhemoglobin Sodium 150 H Potassium Chloride 113.4 H Carbon Dioxide BUN 44 H Creatinine Glucose 268 H POC Glucose Lactic Acid Calcium Ferritin AST Magnesium Lactate Dehydrogenase C-Reactive Protein Total Protein Albumin Aehaf-6-Bzbcahswr Chpgs-8-Uzewaxwcv PEP Interpretation Triglycerides 198 H TSH [place] Screen Complement C4 Coronavirus (PCR) 01/18/20 01/18/20 01/18/20 05:54 11:21 17:27 WBC RBC Hgb Hct MCV MCH RDW Plt Count Lymph % (Auto) [place] # Seg Neutrophils % Seg Neuts % (Manual) Lymphocytes % (Manual) Seg Neutrophils # Seg Neutrophils # Man Lymphocytes # (Manual) D-Dimer ABG pH POC ABG pCO2 POC ABG pO2 ABG pO2 ABG O2 Saturation ABG Base Excess ABG Oxyhemoglobin ABG HCO3 ABG Hemoglobin Oxyhemoglobin Sodium Potassium Chloride Carbon Dioxide BUN Creatinine Glucose POC Glucose 271 H 244 H 232 H Lactic Acid Calcium Ferritin AST Magnesium Lactate Dehydrogenase C-Reactive Protein Total Protein Albumin Ntvsi-3-Bennqqide Uiqjn-8-Xkwbzveul PEP Interpretation Triglycerides TSH CHICA Screen Complement C4 Coronavirus (PCR) 01/19/20 01/19/20 01/19/20 00:12 04:00 04:40 WBC RBC Hgb Hct MCV MCH RDW Plt Count Lymph % (Auto) [place] # Seg Neutrophils % Seg Neuts % (Manual) Lymphocytes % (Manual) Seg Neutrophils # Seg Neutrophils # Man Lymphocytes # (Manual) D-Dimer ABG pH POC ABG pCO2 POC ABG pO2 ABG pO2 117.2 H ABG O2 Saturation ABG Base Excess ABG Oxyhemoglobin ABG HCO3 ABG Hemoglobin 9.7 L Oxyhemoglobin Sodium 146 H Potassium Chloride 111.3 H Carbon Dioxide BUN 38 H Creatinine Glucose 168 H POC Glucose 143 H Lactic Acid Calcium Ferritin AST Magnesium Lactate Dehydrogenase C-Reactive Protein Total Protein Albumin Tulcr-4-Nvgiznbcw Bgygs-4-Uisgkpmer PEP Interpretation Triglycerides TSH CHICA Screen Complement C4 Coronavirus (PCR) 01/19/20 01/19/20 01/19/20 05:41 12:02 18:13 WBC RBC Hgb Hct MCV MCH RDW Plt Count Lymph % (Auto) [place] # Seg Neutrophils % Seg Neuts % (Manual) Lymphocytes % (Manual) Seg Neutrophils # Seg Neutrophils # Man Lymphocytes # (Manual) D-Dimer ABG pH POC ABG pCO2 POC ABG pO2 ABG pO2 ABG O2 Saturation ABG Base Excess ABG Oxyhemoglobin ABG HCO3 ABG Hemoglobin Oxyhemoglobin Sodium Potassium Chloride Carbon Dioxide BUN Creatinine Glucose POC Glucose 171 H 208 H 272 H Lactic Acid Calcium Ferritin AST Magnesium Lactate Dehydrogenase C-Reactive Protein Total Protein Albumin Zdxmo-9-Ugpvsydau Fjfdh-1-Ruzfvdyvv PEP Interpretation Triglycerides TSH CHICA Screen Complement C4 Coronavirus (PCR) 01/20/20 01/20/20 01/20/20 00:13 04:21 05:30 WBC RBC Hgb Hct MCV MCH RDW Plt Count Lymph % (Auto) [place] # Seg Neutrophils % Seg Neuts % (Manual) Lymphocytes % (Manual) Seg Neutrophils # Seg Neutrophils # Man Lymphocytes # (Manual) D-Dimer ABG pH POC ABG pCO2 POC ABG pO2 ABG pO2 ABG O2 Saturation ABG Base Excess ABG Oxyhemoglobin ABG HCO3 26.8 H ABG Hemoglobin 10.7 L Oxyhemoglobin 94.3 L Sodium Potassium Chloride Carbon Dioxide BUN Creatinine Glucose POC Glucose 223 H 129 H Lactic Acid Calcium Ferritin AST Magnesium Lactate Dehydrogenase C-Reactive Protein Total Protein Albumin Ufqle-7-Dpcgtngjy Eisrl-3-Ykzngyljv PEP Interpretation Triglycerides TSH CHICA Screen Complement C4 Coronavirus (PCR) 01/20/20 01/20/20 01/20/20 11:14 11:14 11:14 WBC RBC Hgb Hct MCV MCH RDW Plt Count Lymph % (Auto) [place] # Seg Neutrophils % Seg Neuts % (Manual) Lymphocytes % (Manual) Seg Neutrophils # Seg Neutrophils # Man Lymphocytes # (Manual) D-Dimer 1221.96 H ABG pH POC ABG pCO2 POC ABG pO2 ABG pO2 ABG O2 Saturation ABG Base Excess ABG Oxyhemoglobin ABG HCO3 ABG Hemoglobin Oxyhemoglobin Sodium Potassium Chloride Carbon Dioxide BUN Creatinine Glucose POC Glucose Lactic Acid Calcium Ferritin 364.6 H AST Magnesium Lactate Dehydrogenase 403 H C-Reactive Protein 5.10 H Total Protein Albumin Pqkrq-4-Fahcmudll Omhjw-2-Pfufzpjvc PEP Interpretation Triglycerides TSH CHICA Screen Complement C4 Coronavirus (PCR) 01/20/20 01/20/20 01/20/20 12:01 18:10 23:07 WBC RBC Hgb Hct MCV MCH RDW Plt Count Lymph % (Auto) [place] # Seg Neutrophils % Seg Neuts % (Manual) Lymphocytes % (Manual) Seg Neutrophils # Seg Neutrophils # Man Lymphocytes # (Manual) D-Dimer ABG pH POC ABG pCO2 POC ABG pO2 ABG pO2 ABG O2 Saturation ABG Base Excess ABG Oxyhemoglobin ABG HCO3 ABG Hemoglobin Oxyhemoglobin Sodium Potassium Chloride Carbon Dioxide BUN Creatinine Glucose POC Glucose 260 H 317 H 237 H Lactic Acid Calcium Ferritin AST Magnesium Lactate Dehydrogenase C-Reactive Protein Total Protein Albumin Tqetj-3-Trpexxnxb Idweu-5-Nwiagmgdd PEP Interpretation Triglycerides TSH CHICA Screen Complement C4 Coronavirus (PCR) 01/21/20 01/21/20 01/21/20 05:25 05:25 05:42 WBC 11.3 H RBC Hgb 9.1 L Hct 28.9 L MCV 77 L MCH 24 L RDW Plt Count Lymph % (Auto) [place] # Seg Neutrophils % Seg Neuts % (Manual) Lymphocytes % (Manual) Seg Neutrophils # Seg Neutrophils # Man Lymphocytes # (Manual) D-Dimer ABG pH POC ABG pCO2 POC ABG pO2 ABG pO2 ABG O2 Saturation ABG Base Excess ABG Oxyhemoglobin ABG HCO3 ABG Hemoglobin Oxyhemoglobin Sodium 147 H Potassium Chloride 111.0 H Carbon Dioxide 31 H D BUN 20 H Creatinine Glucose 103 H POC Glucose 110 H Lactic Acid Calcium 8.2 L Ferritin AST Magnesium Lactate Dehydrogenase C-Reactive Protein Total Protein Albumin Umpcu-3-Cqhityqxh Jaybd-0-Mgckneqwk PEP Interpretation Triglycerides TSH [facility] Screen Complement C4 Coronavirus (PCR) 01/21/20 11:49 WBC RBC Hgb Hct MCV MCH RDW Plt Count Lymph % (Auto) [place] # Seg Neutrophils % Seg Neuts % (Manual) Lymphocytes % (Manual) Seg Neutrophils # Seg Neutrophils # Man Lymphocytes # (Manual) D-Dimer ABG pH POC ABG pCO2 POC ABG pO2 ABG pO2 ABG O2 Saturation ABG Base Excess ABG Oxyhemoglobin ABG HCO3 ABG Hemoglobin Oxyhemoglobin Sodium Potassium Chloride Carbon Dioxide BUN Creatinine Glucose POC Glucose 147 H Lactic Acid Calcium Ferritin AST Magnesium Lactate Dehydrogenase C-Reactive Protein Total Protein Albumin Clyua-4-Cluoqedsv Fuhmw-2-Oxwyraaay PEP Interpretation Triglycerides TSH [facility] Screen Complement C4 Coronavirus (PCR) Chest x-ray: other (none today) Allied health notes reviewed: RT
--- NOTE | 2020-01-21 13:23 | Progress Note ---
Subjective Date of service: 01/21/20 Principal diagnosis: Ac. hypoxemic resp failure; COVID infection; PNA; ARACELI; Thrombocytopenia Interval history: Assessment and plan Acute hypoxic respiratory failure. secondary to COVID-19 infection. Patient remains on mechanical ventilation. Pulmonary following. ABG results reviewed Patient is on 30% FiO2 and PEEP of 8 Wean as tolerated COVID-19 pneumonia. Patient was initially diagnosed 8 days prior to admission. Inflammatory markers reviewed. ID following. Continue dexamethasone 6 mg IV for completion of 10 days (day 9 of 10). Treated with remdesivir for 4 days and stopped on 01/17/2020 per ID recommendation because of bradycardia. Continue to trend inflammatory markers. Continue full dose anticoagulation given the high d-dimer. Sepsis. Etiology secondary to above. Off antibiotics Morbid obesity. Counseling once patient is extubated Severe bradycardia : Resolved. cardiology consult note reviewed Likely secondary to Decadron/ ? remdesivir No further recommendations Elevated LFTs/transaminitis.-Improved Etiology likely secondary to sepsis/COVID-19 Acute kidney injury. Improved Etiology secondary to sepsis/ATN. Discussed with Dr. Sheikh. Nephrology signed off Hypernatremia Secondary to dehydration Resolved Serum sodium down to 146 Hyperkalemia. Resolved Etiology likely secondary to above. Hypertension Intermittently uncontrolled, most likely secondary to agitation/anxiety Will down regulate blood pressure medication History of present illness: 39 YO Female with MO, Obesity Hypoventilation Syndrome, DM, Asthma presents to ED for evaluation. Patient states that she has experienced shortness of breath over the past 3 days with worsening symptoms over the past 1 day. Patient also acknowledges nonproductive cough, malaise, weakness, fatigue, decreased exercise tolerance, subjective fever and body aches. Patient states that she tested positive for coronavirus 8 days ago and has experienced worsening symptoms over the past 3 days. EMS was notified and upon arrival the patient was found to be in distress. Patient placed on submental oxygen and transported to [facility] for fur ther care and evaluation. Patient seen and evaluated in the emergency department. Lab and imaging studies reviewed. Patient found to have a pulse oximetry of 80% on room air which is consistent with acute hypoxemic respiratory failure as well as a fever with a temperature of 101.3 F. Patient underwent chest x-ray which revealed bilateral pneumonia which was complicated by sepsis. Patient admitted to medical floor and initiated on pneumonia protocol as well as COVID-19 protocol as well as sepsis protocol. Patient denies chills, chest pain, palpitations, productive cough, skin rash, recent ill contacts. Patient acknowledges positive coronavirus infection. No prior admission for review. All medication listed at time of admission has been reconciled. Coronavirus PCR has been ordered and is pending at time of admission. 01/16/2020; patient is still on mechanical ventilation FiO2 40, PEEP 14, patient is on fentanyl, Versed, propofol. Patient proned. We will continue to monitor. Patient is off IV antibiotics. Treated for 5 days with IV ceftriaxone. ID, nephrology and pulmonary consult appreciated 01/17/2020; patient is still on mechanical ventilation FiO2 40, PEEP 14, patient is on fentanyl, Versed, propofol. Patient proned. We will continue to monitor. Patient is off IV antibiotics. Treated for 5 days with IV ceftriaxone. ID, nephrology and pulmonary consult appreciated. Patient has elevated sodium level and advised to increase free water intake through the NG tube feeding. 01/18/2020; patient is still on mechanical ventilation with FiO2 of 40 and PEEP of 14 patient is on fentanyl and Versed for sedation. Patient is on dexamethasone day 7 and probably severe was stopped yesterday after fourth dose per ID recommendation, patient is bradycardic. Cardiology was consulted and recommend to follow her closely. If heart rates below 40 we want to give her at ropine. I discussed the management plan with her father Mr. Baxter in detail at [phone]. Mr. Baxter said his daughter was suffering from asthma and bipolar disorder. 01/19/20; patient is on mechanical ventilation FiO2 of 35 and PEEP of 8, patient is on fentanyl and Versed for sedation. Patient is on dexamethasone day 8. From the severe discontinued after she took for 4 days per ID recommendation due to bradycardia. Cardiology and nephrology consult appreciated. Discussed with her father in detail about the management plan on 01/18/2020. Continue with the same management. Vent management as per risk management intern. 01/19 patient remains on vent, on FiO2 of 30% and PEEP of 8. She is on Diprivan and fentanyl. Per discussion with RN ,patient is anxious and intermittently agitated. Patient is awake and alert. Unable to perform review of systems secondary to patient being intubated. All interdisciplinary notes reviewed Lab results reviewed 01/20 no acute events overnight, groggy secondary to sedation, opens eyes to verbal stimulus, yesterday's events noted, BP now well controlled with heart rate also in the normal range. Will adjust blood pressure medication Objective - Constitutional Vitals: Vital Signs - 12hr 01/21/20 01/21/20 01/21/20 01:30 01:45 02:00 Temperature Pulse Rate 90 86 87 Pulse Rate [ From Monitor] Respiratory 14 12 12 Rate Blood Pressure 117/63 109/58 106/58 O2 Sat by Pulse 99 100 100 Oximetry 01/21/20 01/21/20 01/21/20 02:15 02:30 02:45 Temperature Pulse Rate 86 84 82 Pulse Rate [ From Monitor] Respiratory 13 12 12 Rate Blood Pressure 109/56 103/55 106/55 O2 Sat by Pulse 100 100 100 Oximetry 01/21/20 01/21/20 01/21/20 02:48 03:00 03:15 Temperature 99.2 F Pulse Rate 80 81 Pulse Rate [ From Monitor] Respiratory 12 12 Rate Blood Pressure 98/53 101/53 O2 Sat by Pulse 100 100 Oximetry 01/21/20 01/21/20 01/21/20 03:30 03:45 04:00 Temperature Pulse Rate 80 81 79 Pulse Rate [ 87 From Monitor] Respiratory 04 05 13 Rate Blood Pressure 99/54 103/54 102/53 O2 Sat by Pulse 100 100 100 Oximetry 01/21/20 01/21/20 01/21/20 04:15 04:30 04:45 Temperature Pulse Rate 81 82 79 Pulse Rate [ From Monitor] Respiratory 16 15 12 Rate Blood Pressure 102/58 110/57 106/55 O2 Sat by Pulse 100 100 100 Oximetry 01/21/20 01/21/20 01/21/20 04:48 04:56 05:00 Temperature Pulse Rate 80 87 79 Pulse Rate [ From Monitor] Respiratory 12 Rate Blood Pressure 106/55 106/58 106/57 O2 Sat by Pulse 100 99 Oximetry 01/21/20 01/21/20 01/21/20 05:15 05:30 05:45 Temperature Pulse Rate 78 77 77 Pulse Rate [ From Monitor] Respiratory 12 12 12 Rate Blood Pressure 105/54 102/54 103/54 O2 Sat by Pulse 99 99 100 Oximetry 01/21/20 01/21/20 01/21/20 06:00 06:15 06:30 Temperature Pulse Rate 76 76 76 Pulse Rate [ From Monitor] Respiratory 12 12 12 Rate Blood Pressure 102/54 101/53 101/52 O2 Sat by Pulse 99 100 100 Oximetry 01/21/20 01/21/20 01/21/20 06:42 06:45 07:00 Temperature Pulse Rate 76 75 72 Pulse Rate [ From Monitor] Respiratory 12 12 Rate Blood Pressure 101/56 102/52 104/50 O2 Sat by Pulse 100 100 Oximetry 01/21/20 01/21/20 01/21/20 07:15 07:30 07:39 Temperature Pulse Rate 71 75 75 Pulse Rate [ From Monitor] Respiratory 12 12 90 H Rate Blood Pressure 101/49 101/51 101/51 O2 Sat by Pulse 100 100 100 Oximetry 01/21/20 01/21/20 01/21/20 07:45 08:00 08:15 Temperature 99.0 F Pulse Rate 73 72 72 Pulse Rate [ 90 From Monitor] Respiratory 12 12 12 Rate Blood Pressure 101/51 103/51 100/50 O2 Sat by Pulse 100 100 99 Oximetry 01/21/20 01/21/20 01/21/20 08:30 08:45 09:00 Temperature Pulse Rate 75 74 73 Pulse Rate [ From Monitor] Respiratory 12 12 11 L Rate Blood Pressure 98/54 103/54 98/51 O2 Sat by Pulse 99 99 100 Oximetry 01/21/20 01/21/20 01/21/20 09:15 09:30 09:45 Temperature Pulse Rate 75 82 86 Pulse Rate [ From Monitor] Respiratory 12 12 12 Rate Blood Pressure 105/55 97/48 101/47 O2 Sat by Pulse 100 99 99 Oximetry 01/21/20 01/21/20 01/21/20 10:00 10:15 10:30 Temperature Pulse Rate 85 78 72 Pulse Rate [ From Monitor] Respiratory 13 12 11 L Rate Blood Pressure 101/49 98/50 102/53 O2 Sat by Pulse 99 99 99 Oximetry 01/21/20 01/21/20 01/21/20 10:45 11:00 11:15 Temperature Pulse Rate 70 69 65 Pulse Rate [ From Monitor] Respiratory 11 L 12 12 Rate Blood Pressure 106/57 106/59 112/59 O2 Sat by Pulse 100 99 99 Oximetry 01/21/20 01/21/20 01/21/20 11:30 11:43 11:45 Temperature Pulse Rate 68 107 H 93 H Pulse Rate [ From Monitor] Respiratory 12 5 L 15 Rate Blood Pressure 111/58 135/75 111/58 O2 Sat by Pulse 98 99 99 Oximetry 01/21/20 01/21/20 01/21/20 12:00 12:15 12:28 Temperature Pulse Rate 115 H 140 H 107 H Pulse Rate [ From Monitor] Respiratory 20 24 Rate Blood Pressure 149/74 168/79 168/79 O2 Sat by Pulse 99 99 Oximetry 01/21/20 01/21/20 01/21/20 12:31 12:45 13:00 Temperature Pulse Rate 102 H 129 H 119 H Pulse Rate [ From Monitor] Respiratory 15 22 23 Rate Blood Pressure 111/53 137/69 160/86 O2 Sat by Pulse 94 99 99 Oximetry 01/21/20 13:15 Temperature Pulse Rate 113 H Pulse Rate [ From Monitor] Respiratory 24 Rate Blood Pressure 164/85 O2 Sat by Pulse 99 Oximetry General appearance: Present: no acute distress, other (Groggy) - EENT Eyes: PERRL, EOM intact ENT: hearing intact - Neck Neck: supple, normal ROM - Respiratory Respiratory effort: normal Respiratory: bilateral: CTA, diminished - Cardiovascular Rhythm: regular Heart Sounds: Present: S1 & S2 Extremities: No edema - Gastrointestinal General gastrointestinal: Present: soft, non-tender Rectal Exam: deferred - Genitourinary Female genitourinary: deferred - Integumentary Integumentary: clear - Labs CBC & Chem 7: 01/21/20 05:25 01/21/20 05:25 Labs: Abnormal lab results 01/14/20 01/20/20 01/20/20 Range/Units Unknown 18:10 23:07 WBC (4.5-11.0) K/mm3 Hgb (10.1-14.3) gm/dl Hct (30.3-42.9) % MCV (79-97) fl MCH (28-32) pg Sodium (137-145) mmol/L Chloride (98-107) mmol/L Carbon Dioxide (22-30) mmol/L BUN (7-17) mg/dL Glucose (65-100) mg/dL POC Glucose 317 H 237 H (70-105) Calcium (8.4-10.2) mg/dL CHICA Screen Positive H (Negative) 01/21/20 01/21/20 01/21/20 Range/Units 05:25 05:25 05:42 WBC 11.3 H (4.5-11.0) K/mm3 Hgb 9.1 L (10.1-14.3) gm/dl Hct 28.9 L (30.3-42.9) % MCV 77 L (79-97) fl MCH 24 L (28-32) pg Sodium 147 H (137-145) mmol/L Chloride 111.0 H (98-107) mmol/L Carbon Dioxide 31 H D (22-30) mmol/L BUN 20 H (7-17) mg/dL Glucose 103 H (65-100) mg/dL POC Glucose 110 H (70-105) Calcium 8.2 L (8.4-10.2) mg/dL CHICA Screen (Negative) 01/21/20 Range/Units 11:49 WBC (4.5-11.0) K/mm3 Hgb (10.1-14.3) gm/dl Hct (30.3-42.9) % MCV (79-97) fl MCH (28-32) pg Sodium (137-145) mmol/L Chloride (98-107) mmol/L Carbon Dioxide (22-30) mmol/L BUN (7-17) mg/dL Glucose (65-100) mg/dL POC Glucose 147 H (70-105) Calcium (8.4-10.2) mg/dL CHICA Screen (Negative)
[2020-01-21] MEDS ORDERED: QUEtiapine 100 MG TAB PO ONE (14:00)
[2020-01-21] MEDS ORDERED: ALPRAZolam 0.25 MG TAB PO SCH (14:00)
[2020-01-21] MEDS: ALPRAZolam 0.25 MG TAB PO SCH (14:30)
--- NOTE | 2020-01-21 17:35 | XRay Report ---
ABDOMEN 1 VIEW(S) 01/21/2020 5:07 PM INDICATION: NGT insertion. COMPARISON: 01/20/2020 FINDINGS: The tip of the nasogastric tube projects over the gastric lumen. Gas-filled and distended bowel loops are noted. Partially visualized bibasilar pulmonary opacities. Signer Name: Chan Pérez MD Signed: 01/21/2020 5:30 PM Workstation Name: [id number]
[2020-01-21] MEDS: HYDROmorphone 1 MG/1 ML INJ IV PRN (21:14)
[2020-01-21] MEDS: QUEtiapine 100 MG TAB PO SCH (21:15)
[2020-01-22] MEDS: dilTIAZem 60 MG TAB PO SCH ×5 (01:20→23:18)
[2020-01-22] MEDS: ALPRAZolam 0.25 MG TAB PO SCH ×2 (01:21→10:18)
[2020-01-22 05:51] LABS: Blood Urea Nitrogen 19 mg/dL (7-17); Calcium 8.1 mg/dL (8.4-10.2); Hemolysis Index 1
[2020-01-22 05:58] LABS: BUN/Creatinine Ratio 32
[2020-01-22] MEDS: INSULIN LISPRO 100 UNIT/ML VIAL 3 mL SUB-Q SCH ×4 (06:40→23:19)
[2020-01-22] MEDS: hydrALAZINE 25 MG TAB PO SCH ×3 (06:41→23:17)
[2020-01-22] MEDS: fentaNYL DRIP Premix 2,000 MCG/100 ML BAG IV SCH ×3 (06:45→18:22)
--- NOTE | 2020-01-22 08:14 | Progress Note ---
Assessment and Plan Acute hypoxemic respiratory failure orally intubated on MVS Severe COVID infection Multifocal pneumonia Extreme obesity ARACELI- vasomotor nephropathy/COVID Thrombocytopenia Hyperglycemia Hypernatremia - get CTA chest to r/o P.E. re: arrythmia's but also to aid decision on full anticoagulation - metoprolol 5 mg IV X 1 for pulse of 147 - change Xanax to prn - begin Klonipin 1mg p.o. bid - get magnesium level and address - Haldol 5 mg I.V. q6h prn agitation - tentatively extubate in am if able to come off IV Versed (RN to hold during SBT and see if she tolerates) - continue care as below otherwise; - continue Seroquel 300 mg bid - stopped propopfol during SBT's - continue hydralazine 100 mg p.o. q8h - on Cardizem 60 mg p.o. q6h - continue labetalol 10 mg IV q6h prn SBP > 160 mmHg (hold for pulse < 60) - keep set rate at 12/min - complete Nystatin for oral thrush - continue to avoid Qt prolonging drugs otherwise - continue enteric nutrition at goal rate as tolerated - Free water flushes for hypernatremia, monitor closely - continue to avoid nephrotoxins, closely monitor renal function, renally dose all medications - Fluid conservative measures - VAP bundle addressed - CXR, ABG prn - Therapeutic anticoagulation with Lovenox - Permissive hypercapnia is acceptable - continue bronchodilators with pulmonary hygiene per RT - Monitor airway pressures, lung protective strategies - wean off benzodiazepines as soon as possible , reduce the possibility of delirium - prn analgesia per CPOT score - sedation prn for target RASS -2 to -3 - Continue to wean supplemental oxygen for target O2 sats > 92% - conservative fluid management measures as tolerated by hemodynamics and renal function - Bronchodilators with pulmonary hygiene per RT - Antibiotics for CAP , complete course. ID following - Accuchecks with glycemic control per SSI (While critically ill target blood glucose of 140-180 mg/dL; avoid hypoglycemia) - Maintenance of sleep-wake cycle, avoid delirium - Aspiration precautions, HOB >40 - Stress ulcer prophylaxis - Mobility protocol, off loading and skin assessment for pressure ulcer prevention - Monitor hemodynamics closely - Supportive transfusions as indicated to keep HgB >7g/dL COVID SPECIFIC INTERVENTIONS: - Airborne, contact isolation for COVID per facility protocols - IV steroids-dexamethasone - Trend d-dimer,and other inflammatory markers per facility protocol - Evaluate for Convalescent plasma therapy- patient is blood less medicine and will not accept COVID convalescent plasma - complete Remdesivir dosing - completed ceftriaxone 2 gm IV qday and azithromycin 500 mg PO qday for empiric CAP coverage - Monitor QTc Discussed with the ICU team-RTELDER Life threatening condition- COVID 19 ARDS acute hypoxemic respiratory failure on MVS Mortality/Morbidity- High Complexity of medical decision making- High CONDITION: CRITICAL PROGNOSIS: GUARDED CODE STATUS: FULL CODE The high probability of a clinically significant, sudden or life-threatening deterioration of the [respiratory & neurology, renal ] system(s) required my full and direct attention, intervention and personal management. The aggregate critical care time was [35] minutes without overlap. Time includes spent on; [x] Data Review and interpretation [x] Patient assessment and monitoring of vital signs [x] Documentation [x] Medication orders and management Subjective Date of service: 01/22/20 Principal diagnosis: Ac. hypoxemic resp failure; COVID infection; PNA; ARACELI; Thrombocytopenia Interval history: Patient is seen today for: Acute hypoxemic respiratory failure; Severe COVID infection; Multifocal pneumonia; Extreme obesity; ARACELI; Thrombocytopenia Seen and examined at bedside; 24hour events reviewed; nursing and respiratory care staff consulted; no adverse overnight events reported to me; resting peacefully in bed; remains on MVS; weaning via PSV mode but still anxious despite IV sedation; denies chest pains Objective Vital Signs - 12hr 01/21/20 01/21/20 01/21/20 20:15 20:27 20:30 Temperature Pulse Rate 104 H 99 H 105 H Pulse Rate [ From Monitor] Respiratory 19 15 Rate Blood Pressure 152/82 165/90 179/89 O2 Sat by Pulse 100 100 100 Oximetry 01/21/20 01/21/20 01/21/20 20:45 21:00 21:13 Temperature Pulse Rate 105 H 107 H 108 H Pulse Rate [ From Monitor] Respiratory 19 17 Rate Blood Pressure 179/89 160/87 160/87 O2 Sat by Pulse 100 100 Oximetry 01/21/20 01/21/20 01/21/20 21:15 21:30 21:45 Temperature Pulse Rate 111 H 109 H 111 H Pulse Rate [ From Monitor] Respiratory 16 17 18 Rate Blood Pressure 160/87 149/89 131/77 O2 Sat by Pulse 100 100 99 Oximetry 01/21/20 01/21/20 01/21/20 22:00 22:08 22:15 Temperature Pulse Rate 110 H 110 H 121 H Pulse Rate [ From Monitor] Respiratory 16 21 Rate Blood Pressure 129/77 129/77 130/85 O2 Sat by Pulse 99 100 Oximetry 01/21/20 01/21/20 01/21/20 22:31 22:43 22:45 Temperature Pulse Rate 128 H 113 H 111 H Pulse Rate [ From Monitor] Respiratory 23 22 19 Rate Blood Pressure 148/87 148/87 130/85 O2 Sat by Pulse 100 100 99 Oximetry 01/21/20 01/21/20 01/21/20 23:01 23:15 23:29 Temperature 100.8 F H Pulse Rate 113 H 104 H Pulse Rate [ From Monitor] Respiratory 17 17 Rate Blood Pressure 146/86 136/77 O2 Sat by Pulse 99 99 Oximetry 01/21/20 01/21/20 01/22/20 23:30 23:45 00:00 Temperature Pulse Rate 103 H 91 H 94 H Pulse Rate [ 88 From Monitor] Respiratory 16 14 14 Rate Blood Pressure 116/63 109/55 108/55 O2 Sat by Pulse 100 100 99 Oximetry 01/22/20 01/22/20 01/22/20 00:04 00:15 00:30 Temperature Pulse Rate 89 88 87 Pulse Rate [ From Monitor] Respiratory 14 14 Rate Blood Pressure 108/55 105/54 111/53 O2 Sat by Pulse 100 100 99 Oximetry 01/22/20 01/22/20 01/22/20 00:45 01:00 01:15 Temperature Pulse Rate 83 81 81 Pulse Rate [ From Monitor] Respiratory 13 13 12 Rate Blood Pressure 111/53 106/51 98/52 O2 Sat by Pulse 100 100 100 Oximetry 01/22/20 01/22/20 01/22/20 01:20 01:30 01:45 Temperature Pulse Rate 81 82 84 Pulse Rate [ From Monitor] Respiratory 12 13 Rate Blood Pressure 98/52 108/51 108/51 O2 Sat by Pulse 100 100 Oximetry 01/22/20 01/22/20 01/22/20 02:00 02:15 02:30 Temperature Pulse Rate 84 79 83 Pulse Rate [ From Monitor] Respiratory 12 12 16 Rate Blood Pressure 99/50 101/50 100/52 O2 Sat by Pulse 100 100 100 Oximetry 01/22/20 01/22/20 01/22/20 02:45 03:01 03:15 Temperature Pulse Rate 84 117 H 122 H Pulse Rate [ From Monitor] Respiratory 18 22 16 Rate Blood Pressure 100/52 122/67 122/67 O2 Sat by Pulse 100 100 100 Oximetry 01/22/20 01/22/20 01/22/20 03:29 03:30 03:45 Temperature 99.6 F Pulse Rate 121 H 110 H Pulse Rate [ From Monitor] Respiratory 16 16 Rate Blood Pressure 124/67 124/73 O2 Sat by Pulse 99 99 Oximetry 01/22/20 01/22/20 01/22/20 04:00 04:15 04:31 Temperature Pulse Rate 87 131 H Pulse Rate [ 88 From Monitor] Respiratory 20 24 Rate Blood Pressure 132/71 138/77 147/78 O2 Sat by Pulse 100 99 99 Oximetry 01/22/20 01/22/20 01/22/20 04:42 04:45 05:00 Temperature Pulse Rate 112 H 111 H 112 H Pulse Rate [ From Monitor] Respiratory 15 17 Rate Blood Pressure 147/78 147/78 152/75 O2 Sat by Pulse 100 100 100 Oximetry 01/22/20 01/22/20 01/22/20 05:15 05:30 05:46 Temperature Pulse Rate 103 H 95 H 91 H Pulse Rate [ From Monitor] Respiratory 14 14 12 Rate Blood Pressure 152/75 144/81 122/63 O2 Sat by Pulse 100 100 100 Oximetry 01/22/20 01/22/20 01/22/20 06:00 06:16 06:30 Temperature Pulse Rate 87 86 84 Pulse Rate [ From Monitor] Respiratory 12 12 12 Rate Blood Pressure 116/58 117/59 110/56 O2 Sat by Pulse 100 100 100 Oximetry 01/22/20 01/22/20 01/22/20 06:41 06:43 06:46 Temperature Pulse Rate 85 84 82 Pulse Rate [ From Monitor] Respiratory 12 Rate Blood Pressure 115/56 115/56 115/56 O2 Sat by Pulse 100 Oximetry 01/22/20 01/22/20 01/22/20 07:00 07:15 07:49 Temperature Pulse Rate 85 84 84 Pulse Rate [ From Monitor] Respiratory 12 11 L 12 Rate Blood Pressure 114/55 116/56 116/56 O2 Sat by Pulse 100 100 100 Oximetry Constitutional: no acute distress, alert, other (Morbidly obese AAW, supine ETT to MVS) Eyes: non-icteric ENT: oropharynx moist, other (ETT 23 cm CHAD) Neck: supple, no lymphadenopathy, no JVD Effort: mildly labored Ascultation: Bilateral: diminished breath sounds, rhonchi Percussion: Bilateral: not dull Cardiovascular: regular rate and rhythm, other Gastrointestinal: normoactive bowel sounds, soft, non-tender, non-distended (protuberant) Integumentary: normal Extremities: no cyanosis, no edema, pulses normal, no ischemia or petechiae Neurologic: non-focal exam, pupils equal and round, CN II-XII normal, motor strength normal and Psychiatric: anxious CBC and BMP: 01/21/20 05:25 01/22/20 04:42 ABG, PT/INR, D-dimer: ABG ABG pH 7.46 (7.320-7.450) H 01/22/20 03:35 POC ABG pCO2 36.6 mmHg (32.0-48.0) 01/22/20 03:35 ABG pCO2 46.1 mm Hg 01/20/20 04:21 POC ABG pO2 84.0 mmHg (83-108) 01/22/20 03:35 ABG pO2 81.7 mm Hg (80.0-90.0) 01/20/20 04:21 POC ABG HCO3 25.4 01/22/20 03:35 ABG O2 Saturation 96.5 % (95.0-99.0) 01/20/20 04:21 PT/INR, D-dimer D-Dimer 1221.96 ng/mlDDU (0-234) H 01/20/20 11:14 Abnormal lab findings: Abnormal Labs 01/11/20 01/11/20 01/11/20 17:22 17:22 17:22 WBC RBC Hgb Hct MCV MCH RDW Plt Count Lymph % (Auto) Riley # Seg Neutrophils % Seg Neuts % (Manual) Lymphocytes % (Manual) Seg Neutrophils # Seg Neutrophils # Man Lymphocytes # (Manual) D-Dimer 622.52 H ABG pH POC ABG pCO2 POC ABG pO2 ABG pO2 ABG O2 Saturation ABG Base Excess ABG Oxyhemoglobin ABG HCO3 ABG Hemoglobin Oxyhemoglobin Sodium Potassium Chloride 97.6 L Carbon Dioxide 18 L BUN Creatinine Glucose 199 H POC Glucose Lactic Acid 2.20 H* Calcium Ferritin AST 68 H Magnesium Lactate Dehydrogenase C-Reactive Protein Total Protein Albumin 3.0 L Phrnc-3-Umdgevcqh Mnwyz-5-Hvrkbngpl PEP Interpretation Triglycerides TSH CHICA Screen Complement C4 Coronavirus (PCR) 01/11/20 01/11/20 01/11/20 17:22 17:22 23:29 WBC RBC Hgb Hct MCV MCH RDW Plt Count Lymph % (Auto) Riley # Seg Neutrophils % Seg Neuts % (Manual) Lymphocytes % (Manual) Seg Neutrophils # Seg Neutrophils # Man Lymphocytes # (Manual) D-Dimer ABG pH POC ABG pCO2 POC ABG pO2 ABG pO2 ABG O2 Saturation ABG Base Excess ABG Oxyhemoglobin ABG HCO3 ABG Hemoglobin Oxyhemoglobin Sodium Potassium Chloride Carbon Dioxide BUN Creatinine Glucose 202 H POC Glucose Lactic Acid 2.10 H* Calcium Ferritin 270.3 H AST Magnesium Lactate Dehydrogenase 610 H C-Reactive Protein 23.80 H Total Protein Albumin Htobo-2-Mevukjobb Kdmdz-9-Lbozgpdxq PEP Interpretation Triglycerides TSH CHICA Screen Complement C4 Coronavirus (PCR) 01/12/20 01/12/20 01/12/20 07:07 07:07 09:00 WBC RBC 5.31 H Hgb Hct MCV 76 L MCH 25 L RDW 15.5 H Plt Count Lymph % (Auto) 11.2 L Riley # Seg Neutrophils % 85.2 H Seg Neuts % (Manual) Lymphocytes % (Manual) Seg Neutrophils # 9.2 H Seg Neutrophils # Man Lymphocytes # (Manual) D-Dimer ABG pH POC ABG pCO2 POC ABG pO2 ABG pO2 ABG O2 Saturation ABG Base Excess ABG Oxyhemoglobin ABG HCO3 ABG Hemoglobin Oxyhemoglobin Sodium Potassium Chloride Carbon Dioxide 21 L BUN 23 H Creatinine Glucose 206 H POC Glucose Lactic Acid Calcium Ferritin AST Magnesium Lactate Dehydrogenase C-Reactive Protein Total Protein Albumin Wiyuk-8-Kibdjxhur Nnnbs-8-Bawsrxdwy PEP Interpretation Triglycerides TSH CHICA Screen Complement C4 Coronavirus (PCR) Positive A 01/13/20 01/13/20 01/13/20 01:02 04:45 05:10 WBC RBC Hgb Hct MCV MCH RDW Plt Count Lymph % (Auto) Riley # Seg Neutrophils % Seg Neuts % (Manual) Lymphocytes % (Manual) Seg Neutrophils # Seg Neutrophils # Man Lymphocytes # (Manual) D-Dimer > 77647 H ABG pH 7.19 L POC ABG pCO2 56.2 H POC ABG pO2 44.3 L 62.5 L ABG pO2 ABG O2 Saturation ABG Base Excess ABG Oxyhemoglobin 77.5 L 86.5 L ABG HCO3 ABG Hemoglobin Oxyhemoglobin Sodium Potassium Chloride Carbon Dioxide BUN Creatinine Glucose POC Glucose Lactic Acid Calcium Ferritin AST Magnesium Lactate Dehydrogenase C-Reactive Protein Total Protein Albumin Mbghc-8-Mbnpjpmae Kjcei-0-Mlgsugzpv PEP Interpretation Triglycerides TSH CHICA Screen Complement C4 Coronavirus (PCR) 01/13/20 01/13/20 01/13/20 05:10 05:54 12:07 WBC RBC Hgb Hct MCV MCH RDW Plt Count Lymph % (Auto) Riley # Seg Neutrophils % Seg Neuts % (Manual) Lymphocytes % (Manual) Seg Neutrophils # Seg Neutrophils # Man Lymphocytes # (Manual) D-Dimer ABG pH POC ABG pCO2 POC ABG pO2 ABG pO2 ABG O2 Saturation ABG Base Excess ABG Oxyhemoglobin ABG HCO3 ABG Hemoglobin Oxyhemoglobin Sodium Potassium Chloride Carbon Dioxide BUN Creatinine Glucose POC Glucose 356 H 309 H Lactic Acid Calcium Ferritin AST Magnesium Lactate Dehydrogenase 999 H C-Reactive Protein Total Protein Albumin Stmim-2-Jxbdsvkam Wrgcp-2-Htivhhtnd PEP Interpretation Triglycerides TSH CHICA Screen Complement C4 Coronavirus (PCR) 01/13/20 01/13/20 01/13/20 12:54 18:46 18:50 WBC 14.0 H RBC Hgb Hct MCV 76 L MCH 25 L RDW 15.8 H Plt Count 113 L Lymph % (Auto) Riley # Seg Neutrophils % Seg Neuts % (Manual) 88.0 H Lymphocytes % (Manual) 2.0 L Seg Neutrophils # Seg Neutrophils # Man 12.3 H Lymphocytes # (Manual) 0.3 L D-Dimer ABG pH 7.290 L POC ABG pCO2 POC ABG pO2 ABG pO2 60.2 L ABG O2 Saturation 88.6 L ABG Base Excess -2.7 L ABG Oxyhemoglobin ABG HCO3 ABG Hemoglobin Oxyhemoglobin 87.1 L Sodium Potassium Chloride Carbon Dioxide BUN Creatinine Glucose POC Glucose 268 H Lactic Acid Calcium Ferritin AST Magnesium Lactate Dehydrogenase C-Reactive Protein Total Protein Albumin Nrprq-8-Mwtyckfwm Eswgl-6-Kfojvfxrd PEP Interpretation Triglycerides TSH CHICA Screen Complement C4 Coronavirus (PCR) 01/13/20 01/14/20 01/14/20 23:53 00:31 03:13 WBC RBC Hgb Hct MCV MCH RDW Plt Count Lymph % (Auto) Riley # Seg Neutrophils % Seg Neuts % (Manual) Lymphocytes % (Manual) Seg Neutrophils # Seg Neutrophils # Man Lymphocytes # (Manual) D-Dimer ABG pH POC ABG pCO2 POC ABG pO2 ABG pO2 132.6 H ABG O2 Saturation ABG Base Excess -2.7 L ABG Oxyhemoglobin ABG HCO3 ABG Hemoglobin Oxyhemoglobin Sodium Potassium 5.3 H Chloride Carbon Dioxide BUN 55 H Creatinine 1.6 H Glucose 268 H POC Glucose 259 H Lactic Acid Calcium Ferritin AST 46 H Magnesium Lactate Dehydrogenase C-Reactive Protein Total Protein 6.1 L Albumin 3.1 L Mnygv-6-Pqgykpeel Ttyvi-9-Ipbiouukv PEP Interpretation Triglycerides TSH CHICA Screen Complement C4 Coronavirus (PCR) 01/14/20 01/14/20 01/14/20 05:23 06:06 09:47 WBC RBC Hgb Hct MCV MCH RDW Plt Count Lymph % (Auto) [place] # Seg Neutrophils % Seg Neuts % (Manual) Lymphocytes % (Manual) Seg Neutrophils # Seg Neutrophils # Man Lymphocytes # (Manual) D-Dimer > 13683 H ABG pH POC ABG pCO2 POC ABG pO2 ABG pO2 ABG O2 Saturation ABG Base Excess ABG Oxyhemoglobin ABG HCO3 ABG Hemoglobin Oxyhemoglobin Sodium Potassium 5.5 H Chloride 107.6 H Carbon Dioxide 21 L BUN 58 H Creatinine 1.7 H Glucose 231 H POC Glucose 231 H Lactic Acid Calcium Ferritin AST Magnesium Lactate Dehydrogenase C-Reactive Protein Total Protein Albumin Vfjey-7-Ghjuhsdpx Jdmda-7-Whrvgvzsw PEP Interpretation Triglycerides TSH CHIAC Screen Complement C4 Coronavirus (PCR) 01/14/20 01/14/20 01/14/20 09:47 12:20 16:00 WBC RBC Hgb Hct MCV MCH RDW Plt Count Lymph % (Auto) Riley # Seg Neutrophils % Seg Neuts % (Manual) Lymphocytes % (Manual) Seg Neutrophils # Seg Neutrophils # Man Lymphocytes # (Manual) D-Dimer ABG pH POC ABG pCO2 POC ABG pO2 ABG pO2 69.3 L ABG O2 Saturation 94.4 L ABG Base Excess ABG Oxyhemoglobin ABG HCO3 ABG Hemoglobin Oxyhemoglobin 92.7 L Sodium Potassium Chloride 107.2 H Carbon Dioxide 21 L BUN 63 H Creatinine 1.5 H Glucose 217 H POC Glucose 238 H Lactic Acid Calcium Ferritin AST Magnesium Lactate Dehydrogenase C-Reactive Protein Total Protein 6.0 L Albumin 2.7 L Eixqy-2-Fxotwrmua Qkhvp-5-Cckqeierh PEP Interpretation Triglycerides TSH CHICA Screen Complement C4 Coronavirus (PCR) 01/14/20 01/14/20 01/14/20 18:24 19:01 23:50 WBC RBC Hgb Hct MCV MCH RDW Plt Count Lymph % (Auto) [place] # Seg Neutrophils % Seg Neuts % (Manual) Lymphocytes % (Manual) Seg Neutrophils # Seg Neutrophils # Man Lymphocytes # (Manual) D-Dimer ABG pH POC ABG pCO2 POC ABG pO2 ABG pO2 ABG O2 Saturation ABG Base Excess ABG Oxyhemoglobin ABG HCO3 ABG Hemoglobin Oxyhemoglobin Sodium 146 H Potassium 5.9 H Chloride 108.0 H Carbon Dioxide 20 L BUN 61 H Creatinine 1.4 H Glucose 254 H POC Glucose 228 H 321 H Lactic Acid Calcium Ferritin AST Magnesium Lactate Dehydrogenase C-Reactive Protein Total Protein Albumin Rpvuj-0-Nymcuyibx Icydh-5-Tpnldoswk PEP Interpretation Triglycerides TSH CHICA Screen Complement C4 Coronavirus (PCR) 01/14/20 01/14/20 01/14/20 Unknown Unknown Unknown WBC RBC Hgb Hct MCV MCH RDW Plt Count Lymph % (Auto) [place] # Seg Neutrophils % Seg Neuts % (Manual) Lymphocytes % (Manual) Seg Neutrophils # Seg Neutrophils # Man Lymphocytes # (Manual) D-Dimer ABG pH POC ABG pCO2 POC ABG pO2 ABG pO2 ABG O2 Saturation ABG Base Excess ABG Oxyhemoglobin ABG HCO3 ABG Hemoglobin Oxyhemoglobin Sodium Potassium Chloride Carbon Dioxide BUN Creatinine Glucose POC Glucose Lactic Acid Calcium Ferritin AST Magnesium Lactate Dehydrogenase C-Reactive Protein Total Protein Albumin 2.8 L Avvvj-0-Dymidcxsx 0.6 H Tartl-2-Atyapiqss 1.1 H PEP Interpretation see below H Triglycerides TSH CHICA Screen Positive H Complement C4 76 H Coronavirus (PCR) 01/15/20 01/15/20 01/15/20 03:37 03:57 03:57 WBC 14.9 H RBC Hgb Hct MCV 75 L MCH 25 L RDW 15.4 H Plt Count Lymph % (Auto) 8.6 L Riley # 1.0 H Seg Neutrophils % 84.2 H Seg Neuts % (Manual) Lymphocytes % (Manual) Seg Neutrophils # 12.5 H Seg Neutrophils # Man Lymphocytes # (Manual) D-Dimer ABG pH 7.480 H POC ABG pCO2 POC ABG pO2 76.7 L ABG pO2 ABG O2 Saturation ABG Base Excess ABG Oxyhemoglobin ABG HCO3 ABG Hemoglobin Oxyhemoglobin Sodium 152 H Potassium Chloride 113.0 H Carbon Dioxide BUN 52 H Creatinine Glucose 288 H POC Glucose Lactic Acid Calcium Ferritin AST Magnesium Lactate Dehydrogenase C-Reactive Protein Total Protein Albumin Qifxn-3-Ochzbvhst Gsabz-5-Sumwioohg PEP Interpretation Triglycerides TSH CH[place] Screen Complement C4 Coronavirus (PCR) 01/15/20 01/15/20 01/15/20 05:50 11:56 14:35 WBC RBC Hgb Hct MCV MCH RDW Plt Count Lymph % (Auto) [place] # Seg Neutrophils % Seg Neuts % (Manual) Lymphocytes % (Manual) Seg Neutrophils # Seg Neutrophils # Man Lymphocytes # (Manual) D-Dimer ABG pH POC ABG pCO2 POC ABG pO2 ABG pO2 ABG O2 Saturation ABG Base Excess ABG Oxyhemoglobin ABG HCO3 ABG Hemoglobin Oxyhemoglobin Sodium Potassium Chloride Carbon Dioxide BUN Creatinine Glucose POC Glucose 259 H 162 H Lactic Acid Calcium Ferritin 332.4 H AST Magnesium Lactate Dehydrogenase C-Reactive Protein Total Protein Albumin Rkkmd-1-Eaezphvss Rnuzo-2-Vusipkkuv PEP Interpretation Triglycerides TSH CHICA Screen Complement C4 Coronavirus (PCR) 01/15/20 01/15/20 01/15/20 14:35 14:35 14:35 WBC RBC Hgb Hct MCV MCH RDW Plt Count Lymph % (Auto) [place] # Seg Neutrophils % Seg Neuts % (Manual) Lymphocytes % (Manual) Seg Neutrophils # Seg Neutrophils # Man Lymphocytes # (Manual) D-Dimer ABG pH POC ABG pCO2 POC ABG pO2 ABG pO2 ABG O2 Saturation ABG Base Excess ABG Oxyhemoglobin ABG HCO3 ABG Hemoglobin Oxyhemoglobin Sodium Potassium Chloride Carbon Dioxide BUN Creatinine Glucose POC Glucose Lactic Acid Calcium Ferritin AST Magnesium 3.00 H Lactate Dehydrogenase 747 H C-Reactive Protein 7.60 H Total Protein Albumin Hherh-6-Hnhwqwrrb Nzsrh-2-Kuaqszbsm PEP Interpretation Triglycerides TSH 0.221 L CHICA Screen Complement C4 Coronavirus (PCR) 01/15/20 01/15/20 01/15/20 16:18 17:31 23:26 WBC RBC Hgb Hct MCV MCH RDW Plt Count Lymph % (Auto) [place] # Seg Neutrophils % Seg Neuts % (Manual) Lymphocytes % (Manual) Seg Neutrophils # Seg Neutrophils # Man Lymphocytes # (Manual) D-Dimer ABG pH 7.510 H POC ABG pCO2 POC ABG pO2 76.6 L ABG pO2 ABG O2 Saturation ABG Base Excess ABG Oxyhemoglobin ABG HCO3 ABG Hemoglobin Oxyhemoglobin Sodium Potassium Chloride Carbon Dioxide BUN Creatinine Glucose POC Glucose 239 H 226 H Lactic Acid Calcium Ferritin AST Magnesium Lactate Dehydrogenase C-Reactive Protein Total Protein Albumin Dzrmk-3-Isjsojhnb Qnswt-8-Xhrfjfzts PEP Interpretation Triglycerides TSH CHICA Screen Complement C4 Coronavirus (PCR) 01/16/20 01/16/20 01/16/20 03:33 04:00 04:00 WBC 13.6 H RBC Hgb Hct MCV 74 L MCH 25 L RDW 15.4 H Plt Count Lymph % (Auto) Riley # Seg Neutrophils % Seg Neuts % (Manual) 91.0 H Lymphocytes % (Manual) 5.0 L Seg Neutrophils # Seg Neutrophils # Man 12.4 H Lymphocytes # (Manual) 0.7 L D-Dimer ABG pH 7.477 H POC ABG pCO2 POC ABG pO2 ABG pO2 ABG O2 Saturation ABG Base Excess ABG Oxyhemoglobin ABG HCO3 ABG Hemoglobin Oxyhemoglobin Sodium 151 H Potassium Chloride 113.8 H Carbon Dioxide BUN 45 H Creatinine Glucose 213 H POC Glucose Lactic Acid Calcium Ferritin AST Magnesium Lactate Dehydrogenase C-Reactive Protein Total Protein Albumin Pmmbd-8-Iahvxwgjx Bewdd-8-Kglffjpjf PEP Interpretation Triglycerides TSH CHICA Screen Complement C4 Coronavirus (PCR) 01/16/20 01/16/20 01/16/20 05:45 12:02 17:27 WBC RBC Hgb Hct MCV MCH RDW Plt Count Lymph % (Auto) [place] # Seg Neutrophils % Seg Neuts % (Manual) Lymphocytes % (Manual) Seg Neutrophils # Seg Neutrophils # Man Lymphocytes # (Manual) D-Dimer ABG pH POC ABG pCO2 POC ABG pO2 ABG pO2 ABG O2 Saturation ABG Base Excess ABG Oxyhemoglobin ABG HCO3 ABG Hemoglobin Oxyhemoglobin Sodium Potassium Chloride Carbon Dioxide BUN Creatinine Glucose POC Glucose 202 H 186 H 240 H Lactic Acid Calcium Ferritin AST Magnesium Lactate Dehydrogenase C-Reactive Protein Total Protein Albumin Qdrpv-1-Cihjguntv Zbktf-8-Gggzzzoac PEP Interpretation Triglycerides TSH CHICA Screen Complement C4 Coronavirus (PCR) 09/01/17/20 01/17/20 00:07 04:50 05:46 WBC RBC Hgb Hct MCV MCH RDW Plt Count Lymph % (Auto) [place] # Seg Neutrophils % Seg Neuts % (Manual) Lymphocytes % (Manual) Seg Neutrophils # Seg Neutrophils # Man Lymphocytes # (Manual) D-Dimer ABG pH 7.494 H POC ABG pCO2 POC ABG pO2 ABG pO2 73.4 L ABG O2 Saturation ABG Base Excess ABG Oxyhemoglobin ABG HCO3 ABG Hemoglobin Oxyhemoglobin 94.4 L Sodium Potassium Chloride Carbon Dioxide BUN Creatinine Glucose POC Glucose 207 H 170 H Lactic Acid Calcium Ferritin AST Magnesium Lactate Dehydrogenase C-Reactive Protein Total Protein Albumin Paxwg-8-Lmguiyfqo Rbrkv-5-Oihptmbsd PEP Interpretation Triglycerides TSH CHICA Screen Complement C4 Coronavirus (PCR) 01/17/20 01/17/20 01/17/20 06:00 06:00 11:32 WBC 11.5 H RBC Hgb Hct MCV 75 L MCH 25 L RDW 15.5 H Plt Count Lymph % (Auto) [place] # Seg Neutrophils % Seg Neuts % (Manual) 81.0 H Lymphocytes % (Manual) 10.0 L Seg Neutrophils # Seg Neutrophils # Man 9.3 H Lymphocytes # (Manual) D-Dimer ABG pH POC ABG pCO2 POC ABG pO2 ABG pO2 ABG O2 Saturation ABG Base Excess ABG Oxyhemoglobin ABG HCO3 ABG Hemoglobin Oxyhemoglobin Sodium 151 H Potassium Chloride 113.6 H Carbon Dioxide BUN 40 H Creatinine Glucose 149 H POC Glucose 229 H Lactic Acid Calcium Ferritin AST Magnesium Lactate Dehydrogenase C-Reactive Protein Total Protein Albumin Cupqj-5-Bspvygxqd Yjugt-9-Fwmgurhqi PEP Interpretation Triglycerides TSH CHICA Screen Complement C4 Coronavirus (PCR) 01/17/20 01/17/20 01/17/20 13:40 13:40 13:40 WBC RBC Hgb Hct MCV MCH RDW Plt Count Lymph % (Auto) [place] # Seg Neutrophils % Seg Neuts % (Manual) Lymphocytes % (Manual) Seg Neutrophils # Seg Neutrophils # Man Lymphocytes # (Manual) D-Dimer 1878.79 H ABG pH POC ABG pCO2 POC ABG pO2 ABG pO2 ABG O2 Saturation ABG Base Excess ABG Oxyhemoglobin ABG HCO3 ABG Hemoglobin Oxyhemoglobin Sodium Potassium Chloride Carbon Dioxide BUN Creatinine Glucose POC Glucose Lactic Acid Calcium Ferritin 322.8 H AST Magnesium Lactate Dehydrogenase 587 H C-Reactive Protein 4.60 H Total Protein Albumin Pzjgb-6-Vojpzhwud Lykvm-8-Ticvtdxtm PEP Interpretation Triglycerides TSH CHICA Screen Complement C4 Coronavirus (PCR) 01/17/20 01/17/20 01/17/20 17:45 21:30 23:53 WBC RBC Hgb Hct MCV MCH RDW Plt Count Lymph % (Auto) [place] # Seg Neutrophils % Seg Neuts % (Manual) Lymphocytes % (Manual) Seg Neutrophils # Seg Neutrophils # Man Lymphocytes # (Manual) D-Dimer ABG pH POC ABG pCO2 POC ABG pO2 ABG pO2 179.6 H ABG O2 Saturation 99.2 H ABG Base Excess ABG Oxyhemoglobin ABG HCO3 ABG Hemoglobin 11.8 L Oxyhemoglobin Sodium Potassium Chloride Carbon Dioxide BUN Creatinine Glucose POC Glucose 364 H 272 H Lactic Acid Calcium Ferritin AST Magnesium Lactate Dehydrogenase C-Reactive Protein Total Protein Albumin Bwmpm-9-Wwdlygtdt Iisjx-2-Zvbvwsogj PEP Interpretation Triglycerides TSH CHICA Screen Complement C4 Coronavirus (PCR) 01/18/20 01/18/20 01/18/20 03:40 04:00 05:00 WBC RBC Hgb Hct MCV MCH RDW Plt Count Lymph % (Auto) Riley # Seg Neutrophils % Seg Neuts % (Manual) Lymphocytes % (Manual) Seg Neutrophils # Seg Neutrophils # Man Lymphocytes # (Manual) D-Dimer ABG pH POC ABG pCO2 POC ABG pO2 ABG pO2 162.6 H ABG O2 Saturation ABG Base Excess ABG Oxyhemoglobin ABG HCO3 ABG Hemoglobin Oxyhemoglobin Sodium 150 H Potassium Chloride 113.4 H Carbon Dioxide BUN 44 H Creatinine Glucose 268 H POC Glucose Lactic Acid Calcium Ferritin AST Magnesium Lactate Dehydrogenase C-Reactive Protein Total Protein Albumin Nrrcj-1-Bewetcxgk Oiuab-0-Uxndmmfpl PEP Interpretation Triglycerides 198 H TSH CHICA Screen Complement C4 Coronavirus (PCR) 01/18/20 01/18/20 01/18/20 05:54 11:21 17:27 WBC RBC Hgb Hct MCV MCH RDW Plt Count Lymph % (Auto) Riley # Seg Neutrophils % Seg Neuts % (Manual) Lymphocytes % (Manual) Seg Neutrophils # Seg Neutrophils # Man Lymphocytes # (Manual) D-Dimer ABG pH POC ABG pCO2 POC ABG pO2 ABG pO2 ABG O2 Saturation ABG Base Excess ABG Oxyhemoglobin ABG HCO3 ABG Hemoglobin Oxyhemoglobin Sodium Potassium Chloride Carbon Dioxide BUN Creatinine Glucose POC Glucose 271 H 244 H 232 H Lactic Acid Calcium Ferritin AST Magnesium Lactate Dehydrogenase C-Reactive Protein Total Protein Albumin Azxfj-5-Moqlfecff Dwpci-6-Kvzmjycwy PEP Interpretation Triglycerides TSH CHICA Screen Complement C4 Coronavirus (PCR) 01/19/20 01/19/20 01/19/20 00:12 04:00 04:40 WBC RBC Hgb Hct MCV MCH RDW Plt Count Lymph % (Auto) Riley # Seg Neutrophils % Seg Neuts % (Manual) Lymphocytes % (Manual) Seg Neutrophils # Seg Neutrophils # Man Lymphocytes # (Manual) D-Dimer ABG pH POC ABG pCO2 POC ABG pO2 ABG pO2 117.2 H ABG O2 Saturation ABG Base Excess ABG Oxyhemoglobin ABG HCO3 ABG Hemoglobin 9.7 L Oxyhemoglobin Sodium 146 H Potassium Chloride 111.3 H Carbon Dioxide BUN 38 H Creatinine Glucose 168 H POC Glucose 143 H Lactic Acid Calcium Ferritin AST Magnesium Lactate Dehydrogenase C-Reactive Protein Total Protein Albumin Fjprv-0-Acqonozfl Rufdh-7-Kyreuwqzq PEP Interpretation Triglycerides TSH CHICA Screen Complement C4 Coronavirus (PCR) 01/19/20 01/19/20 01/19/20 05:41 12:02 18:13 WBC RBC Hgb Hct MCV MCH RDW Plt Count Lymph % (Auto) Riley # Seg Neutrophils % Seg Neuts % (Manual) Lymphocytes % (Manual) Seg Neutrophils # Seg Neutrophils # Man Lymphocytes # (Manual) D-Dimer ABG pH POC ABG pCO2 POC ABG pO2 ABG pO2 ABG O2 Saturation ABG Base Excess ABG Oxyhemoglobin ABG HCO3 ABG Hemoglobin Oxyhemoglobin Sodium Potassium Chloride Carbon Dioxide BUN Creatinine Glucose POC Glucose 171 H 208 H 272 H Lactic Acid Calcium Ferritin AST Magnesium Lactate Dehydrogenase C-Reactive Protein Total Protein Albumin Njqie-1-Ajupqwyrv Adlme-7-Bxhqgiqvg PEP Interpretation Triglycerides TSH CHICA Screen Complement C4 Coronavirus (PCR) 01/20/20 01/20/20 01/20/20 00:13 04:21 05:30 WBC RBC Hgb Hct MCV MCH RDW Plt Count Lymph % (Auto) Riley # Seg Neutrophils % Seg Neuts % (Manual) Lymphocytes % (Manual) Seg Neutrophils # Seg Neutrophils # Man Lymphocytes # (Manual) D-Dimer ABG pH POC ABG pCO2 POC ABG pO2 ABG pO2 ABG O2 Saturation ABG Base Excess ABG Oxyhemoglobin ABG HCO3 26.8 H ABG Hemoglobin 10.7 L Oxyhemoglobin 94.3 L Sodium Potassium Chloride Carbon Dioxide BUN Creatinine Glucose POC Glucose 223 H 129 H Lactic Acid Calcium Ferritin AST Magnesium Lactate Dehydrogenase C-Reactive Protein Total Protein Albumin Lkbgj-1-Bntcikzei Zawuf-4-Xowzoqswp PEP Interpretation Triglycerides TSH CHICA Screen Complement C4 Coronavirus (PCR) 01/20/20 01/20/20 01/20/20 11:14 11:14 11:14 WBC RBC Hgb Hct MCV MCH RDW Plt Count Lymph % (Auto) Riley # Seg Neutrophils % Seg Neuts % (Manual) Lymphocytes % (Manual) Seg Neutrophils # Seg Neutrophils # Man Lymphocytes # (Manual) D-Dimer 1221.96 H ABG pH POC ABG pCO2 POC ABG pO2 ABG pO2 ABG O2 Saturation ABG Base Excess ABG Oxyhemoglobin ABG HCO3 ABG Hemoglobin Oxyhemoglobin Sodium Potassium Chloride Carbon Dioxide BUN Creatinine Glucose POC Glucose Lactic Acid Calcium Ferritin 364.6 H AST Magnesium Lactate Dehydrogenase 403 H C-Reactive Protein 5.10 H Total Protein Albumin Sswts-0-Ymtxoqbrx Muure-2-Tlodlsscr PEP Interpretation Triglycerides TSH CHICA Screen Complement C4 Coronavirus (PCR) 01/20/20 01/20/20 01/20/20 12:01 18:10 23:07 WBC RBC Hgb Hct MCV MCH RDW Plt Count Lymph % (Auto) Riley # Seg Neutrophils % Seg Neuts % (Manual) Lymphocytes % (Manual) Seg Neutrophils # Seg Neutrophils # Man Lymphocytes # (Manual) D-Dimer ABG pH POC ABG pCO2 POC ABG pO2 ABG pO2 ABG O2 Saturation ABG Base Excess ABG Oxyhemoglobin ABG HCO3 ABG Hemoglobin Oxyhemoglobin Sodium Potassium Chloride Carbon Dioxide BUN Creatinine Glucose POC Glucose 260 H 317 H 237 H Lactic Acid Calcium Ferritin AST Magnesium Lactate Dehydrogenase C-Reactive Protein Total Protein Albumin Wclde-8-Culeoqnlo Jaswg-8-Aacetjpua PEP Interpretation Triglycerides TSH CHICA Screen Complement C4 Coronavirus (PCR) 01/21/20 01/21/20 01/21/20 05:25 05:25 05:42 WBC 11.3 H RBC Hgb 9.1 L Hct 28.9 L MCV 77 L MCH 24 L RDW Plt Count Lymph % (Auto) Riley # Seg Neutrophils % Seg Neuts % (Manual) Lymphocytes % (Manual) Seg Neutrophils # Seg Neutrophils # Man Lymphocytes # (Manual) D-Dimer ABG pH POC ABG pCO2 POC ABG pO2 ABG pO2 ABG O2 Saturation ABG Base Excess ABG Oxyhemoglobin ABG HCO3 ABG Hemoglobin Oxyhemoglobin Sodium 147 H Potassium Chloride 111.0 H Carbon Dioxide 31 H D BUN 20 H Creatinine Glucose 103 H POC Glucose 110 H Lactic Acid Calcium 8.2 L Ferritin AST Magnesium Lactate Dehydrogenase C-Reactive Protein Total Protein Albumin Xphan-3-Gicqvnwly Ldiwa-8-Nksjltxmk PEP Interpretation Triglycerides TSH CHICA Screen Complement C4 Coronavirus (PCR) 01/21/20 01/21/20 01/21/20 11:49 18:41 21:53 WBC RBC Hgb Hct MCV MCH RDW Plt Count Lymph % (Auto) Riley # Seg Neutrophils % Seg Neuts % (Manual) Lymphocytes % (Manual) Seg Neutrophils # Seg Neutrophils # Man Lymphocytes # (Manual) D-Dimer ABG pH POC ABG pCO2 POC ABG pO2 ABG pO2 ABG O2 Saturation ABG Base Excess ABG Oxyhemoglobin ABG HCO3 ABG Hemoglobin Oxyhemoglobin Sodium Potassium Chloride Carbon Dioxide BUN Creatinine Glucose POC Glucose 147 H 290 H 255 H Lactic Acid Calcium Ferritin AST Magnesium Lactate Dehydrogenase C-Reactive Protein Total Protein Albumin Ezyrw-8-Hdmaorvaz Qvkra-1-Lmcauvmzw PEP Interpretation Triglycerides TSH CHICA Screen Complement C4 Coronavirus (PCR) 01/22/20 01/22/20 01/22/20 03:35 04:42 05:23 WBC RBC Hgb Hct MCV MCH RDW Plt Count Lymph % (Auto) Riley # Seg Neutrophils % Seg Neuts % (Manual) Lymphocytes % (Manual) Seg Neutrophils # Seg Neutrophils # Man Lymphocytes # (Manual) D-Dimer ABG pH 7.46 H POC ABG pCO2 POC ABG pO2 ABG pO2 ABG O2 Saturation ABG Base Excess ABG Oxyhemoglobin ABG HCO3 ABG Hemoglobin 10.4 L Oxyhemoglobin Sodium 148 H Potassium 3.5 L Chloride 108.1 H Carbon Dioxide BUN 19 H Creatinine Glucose 159 H POC Glucose 173 H Lactic Acid Calcium 8.1 L Ferritin AST Magnesium Lactate Dehydrogenase C-Reactive Protein Total Protein Albumin Tkcxc-4-Ugmwdzcom Zrczl-3-Mlvwefvjv PEP Interpretation Triglycerides TSH CHICA Screen Complement C4 Coronavirus (PCR) Chest x-ray: other (none today) Allied health notes reviewed: nursing
[2020-01-22] MEDS: NYSTATIN 500,000 UNIT/5 ML ORAL LIQD PO SCH ×5 (09:15→23:19)
[2020-01-22] MEDS ORDERED: POTASSIUM CHLORIDE 20 MEQ PACKET FEEDTUBE ONE (10:00)
[2020-01-22] MEDS: cloNIDine 0.1 MG TAB PO SCH ×2 (10:19→23:18)
[2020-01-22] MEDS: dexAMETHasone 4 MG/ML VIAL IV SCH (10:23)
[2020-01-22] MEDS: QUEtiapine 100 MG TAB PO SCH ×2 (10:23→23:17)
[2020-01-22] MEDS: ENOXAPARIN 120 MG/0.8 ML INJ SUB-Q SCH ×2 (10:24→23:19)
[2020-01-22] MEDS: INSULIN GLARGINE 100 UNITS/ML SUB-Q SCH (10:24)
[2020-01-22] MEDS: FAMOTIDINE 20 MG TAB PO SCH ×2 (10:25→23:19)
[2020-01-22] MEDS ORDERED: METOPROLOL TARTRATE 5 MG/5 ML INJ IV PRN (10:53)
[2020-01-22] MEDS: MIDAZOLAM 100 MG in SODIUM CHLORIDE 0.9% 80 ML IV SCH (11:18)
[2020-01-22] MEDS: clonazePAM 0.5 MG TAB PO SCH ×2 (11:22→23:18)
[2020-01-22] MEDS ORDERED: ALPRAZolam 0.25 MG TAB PO PRN (12:00)
--- NOTE | 2020-01-22 13:13 | Progress Note ---
Assessment and Plan Cultures: Blood culture 01/11/2020 no growth today Urine culture 01/11/2020 10-100,000 normal skin cristina Tracheal aspirate a 01/13/2020 no growth A/P: 39-year-old female past medical history morbid obesity, diabetes admitted with severe COVID-19 pneumonia. #Sepsis: secondary to COVID-19 pneumonia. New fever again. #Acute hypoxemic respiratory failure: Likely secondary to COVID-19 infection. r emains mechanically ventilated on minimal settings #COVID-19 pneumonia: Very high ddimer on admission. Completed ceftriaxone. Completed remdesivir. Markers are slowly improving. D-dimer improving. Completed steroids. #Morbid obesity: BMI=52. Associated with worse COVID-19 outcomes #Transaminitis: Likely related to COVID-19. Improving. #ARACELI: Resolved #Bradycardia: Resolved. Recs: -Completed steroids -febrile again, blood cultures obtained, then start IV Cefepime + Vancomycin -markers re-ordered for tomorrow: CRP, procalcitonin, d-dimer -anticoagulation per protocol based on d-dimer Lynn Song MD, FACP [facility] ([facility] C: [phone] O: [phone] F: [phone] Subjective Date of service: 01/22/20 Principal diagnosis: Ac. hypoxemic resp failure; COVID infection; PNA; ARACELI; Thrombocytopenia Interval history: Febrile again. Remains intubated, on the vent, minimal settings. Objective - Exam Narrative Exam: Physical Exam (reviewed in chart due to PPE conservation and minimize risk of transmission) Constitutional: intubated, sedated, on the vent Head, Ears, Nose: normocephalic, atraumatic Eyes: limited due to PPE conservation strategy Neck: intubated Oral: intubated Cardiovascular: limited due to PPE conservation strategy Respiratory: limited due to PPE conservation strategy GI: limited due to PPE conservation strategy Musculoskeletal: limited due to PPE conservation strategy Skin: limited due to PPE conservation strategy Hem/Lymphatic: limited due to PPE conservation strategy Psych: no agitation Neurological: sedated, intubated, on the vent, exam limited - Constitutional Vitals: Vital Signs Temp Pulse Resp BP Pulse Ox 98.5 F 102 H 17 127/65 100 01/22/20 08:00 01/22/20 12:05 01/22/20 12:05 01/22/20 12:05 01/22/20 12:05 Temperature -Last 24 Hours Temperature 98.5 F Temperature 99.6 F Temperature 100.8 F Temperature 100.9 F Temperature 99.0 F - Labs CBC & Chem 7: 01/21/20 05:25 01/22/20 04:42 Labs: Abnormal lab results 01/21/20 01/21/20 01/22/20 Range/Units 18:41 21:53 03:35 ABG pH 7.46 H (7.320-7.450) ABG Hemoglobin 10.4 L (12.0-17.5) Sodium (137-145) mmol/L Potassium (3.6-5.0) mmol/L Chloride (98-107) mmol/L BUN (7-17) mg/dL Glucose (65-100) mg/dL POC Glucose 290 H 255 H (70-105) Calcium (8.4-10.2) mg/dL 01/22/20 01/22/20 Range/Units 04:42 05:23 ABG pH (7.320-7.450) ABG Hemoglobin (12.0-17.5) Sodium 148 H (137-145) mmol/L Potassium 3.5 L (3.6-5.0) mmol/L Chloride 108.1 H (98-107) mmol/L BUN 19 H (7-17) mg/dL Glucose 159 H (65-100) mg/dL POC Glucose 173 H (70-105) Calcium 8.1 L (8.4-10.2) mg/dL
[2020-01-22] MEDS ORDERED: VANCOMYCIN 1,500 MG in SODIUM CHLORIDE 0.9% 500 ML 500 ML IV ONE (13:14)
[2020-01-22] MEDS ORDERED: VANCOMYCIN PHARMACY TO DOSE IV SCH (14:00)
[2020-01-22] MEDS: CEFEPIME/NS 2 GM/100 ML 2 GM/100 ML BAG IV SCH ×2 (14:37→23:21)
[2020-01-22] MEDS: HALOPERIDOL LACTATE 5 MG/1 ML INJ IV PRN (14:38)
[2020-01-22] MEDS ORDERED: WATER FOR INJ Sterile (PF) 10 ML ONE (15:04)
--- NOTE | 2020-01-22 15:11 | Event Note ---
Date: 01/22/20 Patient was noted to have intermittent episodes of sinus tachycardia as high as 140s, which occurred during periods of high anxiety when attempts were being made to wean her off the vent. Her baseline heart rate at rest is currently 80- 90. I have recommended no specific treatment for episodes of sinus tachycardia. I have discontinued all beta-blockers and negative inotropic calcium channel blockers. The presence of intermittent sinus tachycardia is a positive finding that shows that her previous bradycardia was not due to sinus node malfunction.
[2020-01-22] MEDS: ACETAMINOPHEN 325 MG TAB PO PRN ×2 (16:37→23:18)
[2020-01-22] MEDS: VANCOMYCIN 1,750 MG in SODIUM CHLORIDE 0.9% 500 ML 500 ML IV SCH (17:06)
--- NOTE | 2020-01-22 18:10 | Progress Note ---
Assessment and Plan Subjective Date of service: 01/21/20 Principal diagnosis: Ac. hypoxemic resp failure; COVID infection; PNA; ARACELI; Thrombocytopenia Interval history: Assessment and plan Acute hypoxic respiratory failure. secondary to COVID-19 infection. Patient remains on mechanical ventilation. Pulmonary following. ABG results reviewed Patient is on 30% FiO2 and PEEP of 8 Wean as tolerated COVID-19 pneumonia. Patient was initially diagnosed 8 days prior to admission. Inflammatory markers reviewed. ID following. Continue dexamethasone 6 mg IV for completion of 10 days (day 9 of 10). Treated with remdesivir for 4 days and stopped on 01/17/2020 per ID recommendation because of bradycardia. Continue to trend inflammatory markers. Continue full dose anticoagulation given the high d-dimer. Sepsis. Etiology secondary to above. Off antibiotics Morbid obesity. Counseling once patient is extubated Severe bradycardia : Resolved. cardiology consult note reviewed Likely secondary to Decadron/ ? remdesivir No further recommendations Elevated LFTs/transaminitis.-Improved Etiology likely secondary to sepsis/COVID-19 Acute kidney injury. Improved Etiology secondary to sepsis/ATN. Discussed with Dr. Sheikh. Nephrology signed off Hypernatremia Secondary to dehydration Resolved Serum sodium down to 146 Hyperkalemia. Resolved Etiology likely secondary to above. Hypertension Intermittently uncontrolled, most likely secondary to agitation/anxiety Will down regulate blood pressure medication Subjective Date of service: 01/22/20 Principal diagnosis: Ac. hypoxemic resp failure; COVID infection; PNA; ARACELI; Thrombocytopenia Interval history: History of present illness: 39 YO Female with MO, Obesity Hypoventilation Syndrome, DM, Asthma presents to ED for evaluation. Patient states that she has experienced shortness of breath over the past 3 days with worsening symptoms over the past 1 day. Patient also acknowledges nonproductive cough, malaise, weakness, fatigue, decreased exercise tolerance, subjective fever and body aches. Patient states that she tested positive for coronavirus 8 days ago and has experienced worsening symptoms over the past 3 days. EMS was notified and upon arrival the patient was found to be in distress. Patient placed on submental oxygen and transported to [facility] for further care and evaluation. Patient seen and evaluated in the emergency department. Lab and imaging studies reviewed. Patient found to have a pulse oximetry of 80% on room air which is consistent with acute hypoxemic respiratory failure as well as a fever with a temperature of 101.3 F. Patient underwent chest x-ray which revealed bilateral pneumonia which was complicated by sepsis. Patient admitted to medical floor and initiated on pneumonia protocol as well as COVID-19 protocol as well as sepsis protocol. Patient denies chills, chest pain, palpitations, productive cough, skin rash, recent ill contacts. Patient acknowledges positive coronavirus infection. No prior admission for review. All medication listed at time of admission has been reconciled. Coronavirus PCR has been ordered and is pending at time of admission. 01/16/2020; patient is still on mechanical ventilation FiO2 40, PEEP 14, patient is on fentanyl, Versed, propofol. Patient proned. We will continue to monitor. Patient is off IV antibiotics. Treated for 5 days with IV ceftriaxone. ID, nephrology and pulmonary consult appreciated 01/17/2020; patient is still on mechanical ventilation FiO2 40, PEEP 14, patient is on fentanyl, Versed, propofol. Patient proned. We will continue to monitor. Patient is off IV antibiotics. Treated for 5 days with IV ceftriaxone. ID, nephrology and pulmonary consult appreciated. Patient has elevated sodium level and advised to increase free water intake through the NG tube feeding. 01/18/2020; patient is still on mechanical ventilation with FiO2 of 40 and PEEP of 14 patient is on fentanyl and Versed for sedation. Patient is on dexamethasone day 7 and probably severe was stopped yesterday after fourth dose per ID recommendation, patient is bradycardic. Cardiology was consulted and recommend to follow her closely. If heart rates below 40 we want to give her atropine. I discussed the management plan with her father Mr. Baxter in detail at [phone]. Mr. Baxter said his daughter was suffering from asthma and bipolar disorder. 01/19/20; patient is on mechanical ventilation FiO2 of 35 and PEEP of 8, patient is on fentanyl and Versed for sedation. Patient is on dexamethasone day 8. From the severe discontinued after she took for 4 days per ID recommendation due to bradycardia. Cardiology and nephrology consult appreciated. Discussed with her father in detail about the management plan on 01/18/2020. Continue with the same management. Vent management as per cable technician. 01/19 patient remains on vent, on FiO2 of 30% and PEEP of 8. She is on Diprivan and fentanyl. Per discussion with RN ,patient is anxious and intermittently agitated. Patient is awake and alert. Unable to perform review of systems secondary to patient being intubated. All interdisciplinary notes reviewed Lab results reviewed 01/20 no acute events overnight, groggy secondary to sedation, opens eyes to verbal stimulus, yesterday's events noted, BP now well controlled with heart rate also in the normal range. Will adjust blood pressure medication 01/22/20 no acute events overnight, opens eyes to verbal stimulus, yesterday's events noted, BP now well controlled with heart rate also in the normal range. Will adjust blood pressure medication Objective - Constitutional Vitals: Vital Signs - 12hr 01/22/20 01/22/20 01/22/20 06:16 06:30 06:41 Temperature Pulse Rate 86 84 85 Respiratory 12 12 Rate Blood Pressure 117/59 110/56 115/56 O2 Sat by Pulse 100 100 Oximetry 01/22/20 01/22/20 01/22/20 06:43 06:46 07:00 Temperature Pulse Rate 84 82 85 Respiratory 12 12 Rate Blood Pressure 115/56 115/56 114/55 O2 Sat by Pulse 100 100 Oximetry 01/22/20 01/22/20 01/22/20 07:15 07:30 07:45 Temperature Pulse Rate 84 86 87 Respiratory 11 L 11 L 11 L Rate Blood Pressure 116/56 106/53 100/55 O2 Sat by Pulse 100 100 100 Oximetry 01/22/20 01/22/20 01/22/20 07:49 08:00 08:15 Temperature 98.5 F Pulse Rate 84 87 90 Respiratory 12 10 L 14 Rate Blood Pressure 116/56 110/53 109/53 O2 Sat by Pulse 100 100 100 Oximetry 01/22/20 01/22/20 01/22/20 08:30 08:45 09:00 Temperature Pulse Rate 88 89 91 H Respiratory 12 9 L 10 L Rate Blood Pressure 106/53 114/55 106/48 O2 Sat by Pulse 100 100 100 Oximetry 01/22/20 01/22/20 01/22/20 09:15 09:30 09:45 Temperature Pulse Rate 94 H 102 H 101 H Respiratory 12 12 12 Rate Blood Pressure 103/48 110/46 115/47 O2 Sat by Pulse 100 100 100 Oximetry 01/22/20 01/22/20 01/22/20 10:00 10:15 10:19 Temperature Pulse Rate 110 H 138 H 135 H Respiratory 15 21 Rate Blood Pressure 123/59 127/67 127/67 O2 Sat by Pulse 100 100 Oximetry 01/22/20 01/22/20 01/22/20 10:30 10:46 11:00 Temperature Pulse Rate 132 H 149 H 128 H Respiratory 18 15 19 Rate Blood Pressure 127/67 121/76 136/76 O2 Sat by Pulse 100 100 100 Oximetry 01/22/20 01/22/20 01/22/20 11:15 11:18 11:23 Temperature Pulse Rate 122 H 123 H 121 H Respiratory 16 Rate Blood Pressure 131/74 131/74 131/74 O2 Sat by Pulse 100 Oximetry 01/22/20 01/22/20 01/22/20 11:30 11:45 12:00 Temperature 100.4 F H Pulse Rate 110 H 110 H 102 H Respiratory 16 18 17 Rate Blood Pressure 138/75 123/62 127/65 O2 Sat by Pulse 100 100 100 Oximetry 01/22/20 01/22/20 01/22/20 12:05 12:15 12:30 Temperature Pulse Rate 102 H 99 H 109 H Respiratory 17 18 16 Rate Blood Pressure 127/65 134/69 137/68 O2 Sat by Pulse 100 100 100 Oximetry 01/22/20 01/22/20 01/22/20 12:45 13:00 13:15 Temperature Pulse Rate 100 H 105 H 107 H Respiratory 15 16 17 Rate Blood Pressure 137/68 140/77 141/81 O2 Sat by Pulse 100 100 100 Oximetry 01/22/20 01/22/20 01/22/20 13:30 13:46 14:00 Temperature Pulse Rate 103 H 118 H 120 H Respiratory 16 14 19 Rate Blood Pressure 151/80 168/92 168/92 O2 Sat by Pulse 100 100 100 Oximetry 01/22/20 01/22/20 01/22/20 14:15 14:30 14:36 Temperature Pulse Rate 119 H 128 H 124 H Respiratory 20 21 Rate Blood Pressure 172/101 172/101 174/100 O2 Sat by Pulse 100 100 Oximetry 01/22/20 01/22/20 01/22/20 14:45 15:00 15:16 Temperature Pulse Rate 123 H 132 H 137 H Respiratory 20 27 H 23 Rate Blood Pressure 178/89 190/100 148/64 O2 Sat by Pulse 100 100 100 Oximetry 01/22/20 01/22/20 01/22/20 15:30 15:43 15:46 Temperature Pulse Rate 162 H 124 H 147 H Respiratory 15 27 H 28 H Rate Blood Pressure 148/64 174/100 166/68 O2 Sat by Pulse 100 Oximetry 01/22/20 01/22/20 01/22/20 16:00 16:15 16:30 Temperature 101.4 F H Pulse Rate 143 H 146 H Respiratory 22 18 Rate Blood Pressure 166/68 137/82 137/82 O2 Sat by Pulse 100 Oximetry 01/22/20 01/22/20 01/22/20 16:45 17:00 17:15 Temperature Pulse Rate 138 H 131 H 126 H Respiratory 27 H 19 22 Rate Blood Pressure 141/84 137/82 133/73 O2 Sat by Pulse 100 99 Oximetry 01/22/20 17:30 Temperature Pulse Rate 133 H Respiratory 24 Rate Blood Pressure 133/73 O2 Sat by Pulse 99 Oximetry General appearance: Present: mild distress, well-nourished - EENT Eyes: PERRL, EOM intact ENT: hearing intact, clear oral mucosa Ears: bilateral: normal - Neck Neck: supple, normal ROM - Respiratory Respiratory effort: normal Respiratory: bilateral: CTA - Breasts Breasts: normal - Cardiovascular Heart rate: 78 Rhythm: regular Heart Sounds: Present: S1 & S2. Absent: gallop, rub Extremities: pulses intact, No edema, normal color, Full ROM - Gastrointestinal General gastrointestinal: Present: soft, non-tender, non-distended, normal bowel sounds - Genitourinary Female genitourinary: normal - Integumentary Integumentary: clear, warm, dry - Musculoskeletal Musculoskeletal: 1, strength equal bilaterally - Neurologic Neurologic: moves all extremities - Psychiatric Psychiatric: other (On vent) - Labs CBC & Chem 7: 01/24/20 06:00 01/24/20 06:00 Labs: Abnormal lab results 01/21/20 01/21/20 01/22/20 Range/Units 18:41 21:53 03:35 ABG pH 7.46 H (7.320-7.450) ABG Hemoglobin 10.4 L (12.0-17.5) Sodium (137-145) mmol/L Potassium (3.6-5.0) mmol/L Chloride (98-107) mmol/L BUN (7-17) mg/dL Glucose (65-100) mg/dL POC Glucose 290 H 255 H (70-105) Calcium (8.4-10.2) mg/dL 01/22/20 01/22/20 Range/Units 04:42 05:23 ABG pH (7.320-7.450) ABG Hemoglobin (12.0-17.5) Sodium 148 H (137-145) mmol/L Potassium 3.5 L (3.6-5.0) mmol/L Chloride 108.1 H (98-107) mmol/L BUN 19 H (7-17) mg/dL Glucose 159 H (65-100) mg/dL POC Glucose 173 H (70-105) Calcium 8.1 L (8.4-10.2) mg/dL
[2020-01-23] MEDS: fentaNYL DRIP Premix 2,000 MCG/100 ML BAG IV SCH ×3 (00:40→10:51)
[2020-01-23] MEDS: hydrALAZINE 25 MG TAB PO SCH ×3 (06:15→22:15)
[2020-01-23] MEDS: dilTIAZem 60 MG TAB PO SCH (06:15)
[2020-01-23] MEDS: VANCOMYCIN 1,750 MG in SODIUM CHLORIDE 0.9% 500 ML 500 ML IV SCH ×2 (06:15→18:19)
[2020-01-23] MEDS: INSULIN LISPRO 100 UNIT/ML VIAL 3 mL SUB-Q SCH ×4 (06:16→23:17)
--- NOTE | 2020-01-23 10:21 | Progress Note ---
Assessment and Plan Cultures: Blood culture 01/11/2020 no growth today Urine culture 01/11/2020 10-100,000 normal skin cristina Tracheal aspirate a 01/13/2020 no growth 01/22/2020 Blood culture: in process A/P: 39-year-old female past medical history morbid obesity, diabetes admitted with severe COVID-19 pneumonia. #Sepsis: secondary to COVID-19 pneumonia. New fever again. #Acute hypoxemic respiratory failure: Likely secondary to COVID-19 infection. remains mechanically ventilated on minimal settings #COVID-19 pneumonia: Very high d-dimer on admission. Completed ceftriaxone. Completed remdesivir. Markers are slowly improving. D-dimer improving. Completed steroids. #Morbid obesity: BMI=52. Associated with worse COVID-19 outcomes #Transaminitis: Likely related to COVID-19. Improving. #AARCELI: Resolved #Bradycardia: Resolved. Recs: -Completed steroids -persistently febrile, blood cultures pending, continue IV Cefepime + Vancomycin for now -anticoagulation per protocol based on d-dimer -CBC in AM Lynn Song MD, FACP [facility] ([facility]) C: [phone] O: [phone] F: [phone] Subjective Date of service: 01/23/20 Principal diagnosis: Ac. hypoxemic resp failure; COVID infection; PNA; ARACELI; Thrombocytopenia Interval history: Febrile. Remains intubated, on the vent. Objective - Exam Narrative Exam: Physical Exam (reviewed in chart due to PPE conservation and minimize risk of transmission) Constitutional: intubated, sedated, on the vent Head, Ears, Nose: normocephalic, atraumatic Eyes: limited due to PPE conservation strategy Neck: intubated Oral: intubated Cardiovascular: limited due to PPE conservation strategy Respiratory: limited due to PPE conservation strategy GI: limited due to PPE conservation strategy Musculoskeletal: limited due to PPE conservation strategy Skin: limited due to PPE conservation strategy Hem/Lymphatic: limited due to PPE conservation strategy Psych: no agitation Neurological: sedated, intubated, on the vent, exam limited - Constitutional Vitals: Vital Signs Temp Pulse Resp BP Pulse Ox 99.3 F 99 H 19 126/63 98 01/23/20 07:58 01/23/20 08:28 01/23/20 08:00 01/23/20 08:28 01/23/20 08:28 Temperature -Last 24 Hours Temperature 99.3 F Temperature 99.0 F Temperature 99.8 F Temperature 101.1 F Temperature 101.4 F Temperature 100.4 F - Labs CBC & Chem 7: 01/21/20 05:25 01/22/20 04:42 Labs: Abnormal lab results 01/22/20 01/22/20 01/22/20 Range/Units 12:41 17:46 23:06 D-Dimer (0-234) ng/mlDDU POC Glucose 284 H 245 H 245 H (70-105) C-Reactive Protein (0.00-1.30) mg/dL 01/23/20 01/23/20 01/23/20 Range/Units 05:50 06:10 06:10 D-Dimer 451.53 H (0-234) ng/mlDDU POC Glucose 184 H (70-105) C-Reactive Protein 3.30 H (0.00-1.30) mg/dL
[2020-01-23] MEDS: INSULIN GLARGINE 100 UNITS/ML SUB-Q SCH (10:49)
[2020-01-23] MEDS: ENOXAPARIN 120 MG/0.8 ML INJ SUB-Q SCH ×2 (10:49→22:16)
[2020-01-23] MEDS: FAMOTIDINE 20 MG TAB PO SCH ×2 (10:50→22:14)
[2020-01-23] MEDS: clonazePAM 0.5 MG TAB PO SCH ×2 (10:50→22:14)
[2020-01-23] MEDS: cloNIDine 0.1 MG TAB PO SCH ×2 (10:50→22:15)
[2020-01-23] MEDS: QUEtiapine 100 MG TAB PO SCH ×2 (10:51→22:31)
[2020-01-23] MEDS: CEFEPIME/NS 2 GM/100 ML 2 GM/100 ML BAG IV SCH ×2 (10:52→22:16)
[2020-01-23] MEDS: NYSTATIN 500,000 UNIT/5 ML ORAL LIQD PO SCH ×4 (10:53→22:14)
--- NOTE | 2020-01-23 10:53 | Cat Scan Report ---
CTA CHEST WITH CONTRAST INDICATION : Acute hypoxemic respiratory Failure. TECHNIQUE: Axial imaging performed through the chest, with contrast bolus timing set to maximize opa cification of the pulmonary arteries. Sagittal and coronal reformatted images. 3-plane MIP reformatte d images were obtained. All CT scans at this location are performed using CT dose reduction for ALAR A by means of automated exposure control. 100 mL of intravenous contrast administered. COMPARISON: AP chest dated 01/20/2020 FINDINGS: Bolus: Contrast bolus timing is limited with poor opacification of the distal small pulmonary arteri es. PTE: No filling defect is present to suggest PTE. Mediastinum: Heart and great vessels appear normal. No pathologic mediastinal adenopathy. Endotrach eal tube and nasogastric tube are appearing good position. Lungs: There are subtle scattered bilateral lung opacities in the lower lung zones. Mild segmental a telectasis is also noted in the lower lobes and medial right upper lobe. No consolidation, pleural ef fusion or pneumothorax is appreciated. Bones: Degenerative changes in the spine with nothing acute. Upper abdomen: Limited imaging of the upper abdomen shows nothing acute. IMPRESSION: Slightly limited contrast bolus. No large central pulmonary embolus is detected. Scattered bilateral lung opacities concerning for viral infection. Mild bilateral atelectatic changes. Signer Name: Miguelito Major Jr, MD Signed: 01/23/2020 10:49 AM Workstation Name: [id number]
--- NOTE | 2020-01-23 11:12 | Progress Note ---
Assessment and Plan Sinus bradycardia, resolved. Now with intermittent sinus tachycardia during periods of anxiety and attempts to wean of the vent. TSH 0.221 COVID -19 viral pneumonia Respiratory failure Diabetes No specific treatment indicated for episodes of sinus tachycardia. The presence of intermittent sinus tachycardia is a positive finding that shows that her previous bradycardia was not due to sinus node malfunction. Conservative cardiac management. Subjective Date of service: 01/23/20 Principal diagnosis: Ac. hypoxemic resp failure; COVID infection; PNA; ARACELI; Thrombocytopenia Interval history: Patient remains intubated. Sinus tachycardia, rate 129 on telemetry. Objective Vital Signs Temp Pulse Pulse Resp BP Pulse Ox 01/23/20 10:50 120 H 138/76 01/23/20 10:40 90 138/76 100 01/23/20 10:31 130 H 22 99 01/23/20 10:25 133 H 01/23/20 09:30 120 H 19 145/70 100 01/23/20 09:01 105 H 19 126/67 100 01/23/20 08:30 101 H 16 126/63 98 01/23/20 08:28 99 H 126/63 98 01/23/20 08:00 110 H 19 146/60 99 01/23/20 07:58 99.3 F 01/23/20 07:30 130 H 19 132/63 98 01/23/20 07:00 111 H 19 139/52 99 01/23/20 06:30 128 H 21 146/69 100 01/23/20 06:15 116 H 119/60 01/23/20 06:00 116 H 18 119/60 100 01/23/20 05:30 73 15 118/64 100 01/23/20 05:00 74 13 111/58 100 01/23/20 04:30 72 11 L 124/58 01/23/20 04:29 71 97 H 14 100 01/23/20 04:04 72 119/56 100 01/23/20 04:00 99.0 F 73 12 117/58 100 01/23/20 03:30 72 12 114/58 100 01/23/20 03:00 72 12 117/58 100 01/23/20 02:30 75 11 L 116/56 100 01/23/20 02:00 71 12 127/55 100 01/23/20 01:30 76 12 126/58 100 01/23/20 01:00 82 15 130/67 99 01/23/20 00:43 97 H 14 100 01/23/20 00:30 101 H 22 131/60 99 01/23/20 00:25 94 H 01/23/20 00:16 97 H 131/60 98 01/23/20 00:00 107 H 19 157/70 99 01/22/20 23:48 99.8 F H 01/22/20 23:36 112 H 16 155/92 100 01/22/20 23:30 114 H 19 140/89 01/22/20 23:18 108 H 140/89 01/22/20 23:17 121 H 140/89 01/22/20 23:00 111 H 14 142/94 100 01/22/20 22:30 81 16 128/60 99 01/22/20 22:00 87 14 127/62 01/22/20 21:30 89 14 143/77 99 01/22/20 21:00 109 H 19 181/93 100 01/22/20 20:30 132 H 24 181/91 100 01/22/20 20:25 108 H 16 01/22/20 20:05 131 H 178/87 01/22/20 20:00 101.1 F H 131 H 25 H 154/85 01/22/20 19:46 127 H 22 154/85 01/22/20 19:30 118 H 22 143/69 01/22/20 19:15 92 H 19 143/69 99 01/22/20 19:00 102 H 20 151/78 99 01/22/20 18:46 115 H 22 151/78 01/22/20 18:30 130 H 21 159/78 01/22/20 18:21 122 H 159/78 01/22/20 18:16 128 H 22 159/78 01/22/20 18:00 130 H 23 158/72 01/22/20 17:46 132 H 18 158/72 01/22/20 17:30 133 H 24 133/73 99 01/22/20 17:15 126 H 22 133/73 99 01/22/20 17:00 131 H 19 137/82 01/22/20 16:45 138 H 27 H 141/84 01/22/20 16:30 146 H 18 137/82 01/22/20 16:15 137/82 01/22/20 16:00 101.4 F H 143 H 22 166/68 01/22/20 15:46 147 H 28 H 166/68 01/22/20 15:43 124 H 27 H 174/100 01/22/20 15:30 162 H 15 148/64 01/22/20 15:16 137 H 23 148/64 01/22/20 15:00 132 H 27 H 190/100 01/22/20 14:45 123 H 20 178/89 01/22/20 14:36 124 H 174/100 01/22/20 14:30 128 H 21 172/101 01/22/20 14:15 119 H 20 172/101 01/22/20 14:00 120 H 19 168/92 01/22/20 13:46 118 H 14 168/92 01/22/20 13:30 103 H 16 151/80 01/22/20 13:15 107 H 17 141/81 01/22/20 13:00 105 H 16 140/77 01/22/20 12:45 100 H 15 137/68 01/22/20 12:30 109 H 16 137/68 01/22/20 12:15 99 H 18 134/69 01/22/20 12:05 102 H 17 127/65 01/22/20 12:00 100.4 F H 102 H 17 127/65 01/22/20 11:45 110 H 18 123/62 01/22/20 11:30 110 H 16 138/75 01/22/20 11:23 121 H 131/74 01/22/20 11:18 123 H 131/74 01/22/20 11:15 122 H 16 131/74 100 - Physical Examination Narrative exam: Deferred due to isolation protocol. Cardiac: Positive: Tachycardia - Allied health notes Allied health notes reviewed: nursing
[2020-01-23] MEDS: MIDAZOLAM 100 MG in SODIUM CHLORIDE 0.9% 80 ML IV SCH (11:22)
--- NOTE | 2020-01-23 12:31 | Progress Note ---
Assessment and Plan Acute hypoxemic respiratory failure orally intubated on MVS Severe COVID infection Multifocal pneumonia Extreme obesity ARACELI- vasomotor nephropathy/COVID Thrombocytopenia Hyperglycemia Hypernatremia - follow CTA chest to r/o P.E. re: arrythmia's but also to aid decision on full anticoagulation - hold all IV sedation and if no extreme agitation will extubate - continue Klonipin 1mg p.o. bid - continue care as below otherwise; - continue Seroquel 300 mg bid - stopped propopfol during SBT's - continue hydralazine 100 mg p.o. q8h - on Cardizem 60 mg p.o. q6h - continue labetalol 10 mg IV q6h prn SBP > 160 mmHg (hold for pulse < 60) - keep set rate at 12/min - complete Nystatin for oral thrush - continue to avoid Qt prolonging drugs otherwise - continue enteric nutrition at goal rate as tolerated - Free water flushes for hypernatremia, monitor closely - continue to avoid nephrotoxins, closely monitor renal function, renally dose all medications - Fluid conservative measures - VAP bundle addressed - CXR, ABG prn - Therapeutic anticoagulation with Lovenox - Permissive hypercapnia is acceptable - continue bronchodilators with pulmonary hygiene per RT - Monitor airway pressures, lung protective strategies - wean off benzodiazepines as soon as possible , reduce the possibility of delirium - prn analgesia per CPOT score - sedation prn for target RASS -2 to -3 - Continue to wean supplemental oxygen for target O2 sats > 92% - conservative fluid management measures as tolerated by hemodynamics and renal function - Bronchodilators with pulmonary hygiene per RT - Antibiotics for CAP , complete course. ID following - Accuchecks with glycemic control per SSI (While critically ill target blood glucose of 140-180 mg/dL; avoid hypoglycemia) - Maintenance of sleep-wake cycle, avoid delirium - Aspiration precautions, HOB >40 - Stress ulcer prophylaxis - Mobility protocol, off loading and skin assessment for pressure ulcer prevention - Monitor hemodynamics closely - Supportive transfusions as indicated to keep HgB >7g/dL COVID SPECIFIC INTERVENTIONS: - Airborne, contact isolation for COVID per facility protocols - IV steroids-dexamethasone - Trend d-dimer,and other inflammatory markers per facility protocol - Evaluate for Convalescent plasma therapy- patient is blood less medicine and will not accept COVID convalescent plasma - complete Remdesivir dosing - completed ceftriaxone 2 gm IV qday and azithromycin 500 mg PO qday for empiric CAP coverage - Monitor QTc Discussed with the ICU team-ELDER MCALLISTER Life threatening condition- COVID 19 ARDS acute hypoxemic respiratory failure on MVS Mortality/Morbidity- High Complexity of medical decision making- High CONDITION: CRITICAL PROGNOSIS: GUARDED CODE STATUS: FULL CODE The high probability of a clinically significant, sudden or life-threatening deterioration of the [respiratory & neurology, renal ] system(s) required my full and direct attention, intervention and personal management. The aggregate critical care time was [32] minutes without overlap. Time includes spent on; [x] Data Review and interpretation [x] Patient assessment and monitoring of vital signs [x] Documentation [x] Medication orders and management Subjective Date of service: 01/23/20 Principal diagnosis: Ac. hypoxemic resp failure; COVID infection; PNA; ARACELI; Thrombocytopenia Interval history: Patient is seen today for: Acute hypoxemic respiratory failure; Severe COVID infection; Multifocal pneumonia; Extreme obesity; ARACELI; Thrombocytopenia Seen and examined at bedside; 24hour events reviewed; nursing and respiratory care staff consulted; no adverse overnight events reported to me; resting peacefully in bed; remains on MVS; tolerating SBT well but remains on IV s edation also. Objective Vital Signs - 12hr 01/23/20 01/23/20 01/23/20 00:43 01:00 01:30 Temperature Pulse Rate 82 76 Pulse Rate [ 97 H From Monitor] Respiratory 14 15 12 Rate Blood Pressure 130/67 126/58 O2 Sat by Pulse 100 99 100 Oximetry 01/23/20 01/23/20 01/23/20 02:00 02:30 03:00 Temperature Pulse Rate 71 75 72 Pulse Rate [ From Monitor] Respiratory 12 11 L 12 Rate Blood Pressure 127/55 116/56 117/58 O2 Sat by Pulse 100 100 100 Oximetry 01/23/20 01/23/20 01/23/20 03:30 04:00 04:04 Temperature 99.0 F Pulse Rate 72 73 72 Pulse Rate [ From Monitor] Respiratory 12 12 Rate Blood Pressure 114/58 117/58 119/56 O2 Sat by Pulse 100 100 100 Oximetry 01/23/20 01/23/20 01/23/20 04:29 04:30 05:00 Temperature Pulse Rate 71 72 74 Pulse Rate [ 97 H From Monitor] Respiratory 14 11 L 13 Rate Blood Pressure 124/58 111/58 O2 Sat by Pulse 100 100 100 Oximetry 01/23/20 01/23/20 01/23/20 05:30 06:00 06:15 Temperature Pulse Rate 73 116 H 116 H Pulse Rate [ From Monitor] Respiratory 15 18 Rate Blood Pressure 118/64 119/60 119/60 O2 Sat by Pulse 100 100 Oximetry 01/23/20 01/23/20 01/23/20 06:30 07:00 07:30 Temperature Pulse Rate 128 H 111 H 130 H Pulse Rate [ From Monitor] Respiratory 21 19 19 Rate Blood Pressure 146/69 139/52 132/63 O2 Sat by Pulse 100 99 98 Oximetry 01/23/20 01/23/20 01/23/20 07:58 08:00 08:28 Temperature 99.3 F Pulse Rate 110 H 99 H Pulse Rate [ From Monitor] Respiratory 19 Rate Blood Pressure 146/60 126/63 O2 Sat by Pulse 99 98 Oximetry 01/23/20 01/23/20 01/23/20 08:30 09:01 09:30 Temperature Pulse Rate 101 H 105 H 120 H Pulse Rate [ From Monitor] Respiratory 16 19 19 Rate Blood Pressure 126/63 126/67 145/70 O2 Sat by Pulse 98 100 100 Oximetry 01/23/20 01/23/20 01/23/20 10:25 10:31 10:40 Temperature Pulse Rate 133 H 130 H 90 Pulse Rate [ From Monitor] Respiratory 22 Rate Blood Pressure 138/76 O2 Sat by Pulse 99 100 Oximetry 01/23/20 01/23/20 01/23/20 10:50 11:00 11:26 Temperature Pulse Rate 120 H 118 H 118 H Pulse Rate [ From Monitor] Respiratory 18 18 Rate Blood Pressure 138/76 138/83 138/83 O2 Sat by Pulse 98 98 Oximetry Constitutional: no acute distress, alert, other (Morbidly obese AAW, supine ETT to MVS) Eyes: non-icteric ENT: oropharynx moist, other (ETT 23 cm CHAD) Neck: supple, no lymphadenopathy, no JVD Effort: mildly labored Ascultation: Bilateral: diminished breath sounds, rhonchi Percussion: Bilateral: not dull Cardiovascular: regular rate and rhythm, other Gastrointestinal: normoactive bowel sounds, soft, non-tender, non-distended (protuberant) Integumentary: normal Extremities: no cyanosis, no edema, pulses normal, no ischemia or petechiae Neurologic: non-focal exam, pupils equal and round, CN II-XII normal, motor strength normal and Psychiatric: anxious CBC and BMP: 01/26/20 10:37 01/26/20 10:37 ABG, PT/INR, D-dimer: ABG ABG pH 7.46 (7.320-7.450) H 01/22/20 03:35 POC ABG pCO2 36.6 mmHg (32.0-48.0) 01/22/20 03:35 ABG pCO2 46.1 mm Hg 01/20/20 04:21 POC ABG pO2 84.0 mmHg (83-108) 01/22/20 03:35 ABG pO2 81.7 mm Hg (80.0-90.0) 01/20/20 04:21 POC ABG HCO3 25.4 01/22/20 03:35 ABG O2 Saturation 96.5 % (95.0-99.0) 01/20/20 04:21 PT/INR, D-dimer D-Dimer 451.53 ng/mlDDU (0-234) H 01/23/20 06:10 Abnormal lab findings: Abnormal Labs 01/11/20 01/11/20 01/11/20 17:22 17:22 17:22 WBC RBC Hgb Hct MCV MCH RDW Plt Count Lymph % (Auto) [place] # Seg Neutrophils % Seg Neuts % (Manual) Lymphocytes % (Manual) Seg Neutrophils # Seg Neutrophils # Man Lymphocytes # (Manual) D-Dimer 622.52 H ABG pH POC ABG pCO2 POC ABG pO2 ABG pO2 ABG O2 Saturation ABG Base Excess ABG Oxyhemoglobin ABG HCO3 ABG Hemoglobin Oxyhemoglobin Sodium Potassium Chloride 97.6 L Carbon Dioxide 18 L BUN Creatinine Glucose 199 H POC Glucose Lactic Acid 2.20 H* Calcium Ferritin AST 68 H Magnesium Lactate Dehydrogenase C-Reactive Protein Total Protein Albumin 3.0 L Gbtlz-4-Sgfmvqmjx Ipzxc-5-Apsbzlkkm PEP Interpretation Triglycerides TSH [facility] Screen Complement C4 Coronavirus (PCR) 01/11/20 01/11/20 01/11/20 17:22 17:22 23:29 WBC RBC Hgb Hct MCV MCH RDW Plt Count Lymph % (Auto) [place] # Seg Neutrophils % Seg Neuts % (Manual) Lymphocytes % (Manual) Seg Neutrophils # Seg Neutrophils # Man Lymphocytes # (Manual) D-Dimer ABG pH POC ABG pCO2 POC ABG pO2 ABG pO2 ABG O2 Saturation ABG Base Excess ABG Oxyhemoglobin ABG HCO3 ABG Hemoglobin Oxyhemoglobin Sodium Potassium Chloride Carbon Dioxide BUN Creatinine Glucose 202 H POC Glucose Lactic Acid 2.10 H* Calcium Ferritin 270.3 H AST Magnesium Lactate Dehydrogenase 610 H C-Reactive Protein 23.80 H Total Protein Albumin Yfrqs-0-Cngxpicuu Dxxog-6-Lykbcyedl PEP Interpretation Triglycerides TSH [facility] Screen Complement C4 Coronavirus (PCR) 01/12/20 01/12/20 01/12/20 07:07 07:07 09:00 WBC RBC 5.31 H Hgb Hct MCV 76 L MCH 25 L RDW 15.5 H Plt Count Lymph % (Auto) 11.2 L [place] # Seg Neutrophils % 85.2 H Seg Neuts % (Manual) Lymphocytes % (Manual) Seg Neutrophils # 9.2 H Seg Neutrophils # Man Lymphocytes # (Manual) D-Dimer ABG pH POC ABG pCO2 POC ABG pO2 ABG pO2 ABG O2 Saturation ABG Base Excess ABG Oxyhemoglobin ABG HCO3 ABG Hemoglobin Oxyhemoglobin Sodium Potassium Chloride Carbon Dioxide 21 L BUN 23 H Creatinine Glucose 206 H POC Glucose Lactic Acid Calcium Ferritin AST Magnesium Lactate Dehydrogenase C-Reactive Protein Total Protein Albumin Bdcdo-0-Czpunjzzy Etasm-0-Cubfehzrl PEP Interpretation Triglycerides TSH [facility] Screen Complement C4 Coronavirus (PCR) Positive A 01/13/20 01/13/20 01/13/20 01:02 04:45 05:10 WBC RBC Hgb Hct MCV MCH RDW Plt Count Lymph % (Auto) [place] # Seg Neutrophils % Seg Neuts % (Manual) Lymphocytes % (Manual) Seg Neutrophils # Seg Neutrophils # Man Lymphocytes # (Manual) D-Dimer > 58714 H ABG pH 7.19 L POC ABG pCO2 56.2 H POC ABG pO2 44.3 L 62.5 L ABG pO2 ABG O2 Saturation ABG Base Excess ABG Oxyhemoglobin 77.5 L 86.5 L ABG HCO3 ABG Hemoglobin Oxyhemoglobin Sodium Potassium Chloride Carbon Dioxide BUN Creatinine Glucose POC Glucose Lactic Acid Calcium Ferritin AST Magnesium Lactate Dehydrogenase C-Reactive Protein Total Protein Albumin Xfxzf-7-Hxtdshpwa Ijcim-4-Oksfjzxjp PEP Interpretation Triglycerides TSH [facility] Screen Complement C4 Coronavirus (PCR) 0901/13/20 01/13/20 05:10 05:54 12:07 WBC RBC Hgb Hct MCV MCH RDW Plt Count Lymph % (Auto) [place] # Seg Neutrophils % Seg Neuts % (Manual) Lymphocytes % (Manual) Seg Neutrophils # Seg Neutrophils # Man Lymphocytes # (Manual) D-Dimer ABG pH POC ABG pCO2 POC ABG pO2 ABG pO2 ABG O2 Saturation ABG Base Excess ABG Oxyhemoglobin ABG HCO3 ABG Hemoglobin Oxyhemoglobin Sodium Potassium Chloride Carbon Dioxide BUN Creatinine Glucose POC Glucose 356 H 309 H Lactic Acid Calcium Ferritin AST Magnesium Lactate Dehydrogenase 999 H C-Reactive Protein Total Protein Albumin Tfjmr-1-Aczrevwcw Dqdrm-8-Iphbuipng PEP Interpretation Triglycerides TSH [place] Screen Complement C4 Coronavirus (PCR) 01/13/20 01/13/20 01/13/20 12:54 18:46 18:50 WBC 14.0 H RBC Hgb Hct MCV 76 L MCH 25 L RDW 15.8 H Plt Count 113 L Lymph % (Auto) [place] # Seg Neutrophils % Seg Neuts % (Manual) 88.0 H Lymphocytes % (Manual) 2.0 L Seg Neutrophils # Seg Neutrophils # Man 12.3 H Lymphocytes # (Manual) 0.3 L D-Dimer ABG pH 7.290 L POC ABG pCO2 POC ABG pO2 ABG pO2 60.2 L ABG O2 Saturation 88.6 L ABG Base Excess -2.7 L ABG Oxyhemoglobin ABG HCO3 ABG Hemoglobin Oxyhemoglobin 87.1 L Sodium Potassium Chloride Carbon Dioxide BUN Creatinine Glucose POC Glucose 268 H Lactic Acid Calcium Ferritin AST Magnesium Lactate Dehydrogenase C-Reactive Protein Total Protein Albumin Xhxfw-7-Ohlaavzhv Ckutp-1-Khtxfluhe PEP Interpretation Triglycerides TSH [facility] Screen Complement C4 Coronavirus (PCR) 01/13/20 01/14/20 01/14/20 23:53 00:31 03:13 WBC RBC Hgb Hct MCV MCH RDW Plt Count Lymph % (Auto) [place] # Seg Neutrophils % Seg Neuts % (Manual) Lymphocytes % (Manual) Seg Neutrophils # Seg Neutrophils # Man Lymphocytes # (Manual) D-Dimer ABG pH POC ABG pCO2 POC ABG pO2 ABG pO2 132.6 H ABG O2 Saturation ABG Base Excess -2.7 L ABG Oxyhemoglobin ABG HCO3 ABG Hemoglobin Oxyhemoglobin Sodium Potassium 5.3 H Chloride Carbon Dioxide BUN 55 H Creatinine 1.6 H Glucose 268 H POC Glucose 259 H Lactic Acid Calcium Ferritin AST 46 H Magnesium Lactate Dehydrogenase C-Reactive Protein Total Protein 6.1 L Albumin 3.1 L Fnyjb-3-Xajssydgg Hqndo-8-Jfvdwqkao PEP Interpretation Triglycerides TSH [place] Screen Complement C4 Coronavirus (PCR) 01/14/20 01/14/20 01/14/20 05:23 06:06 09:47 WBC RBC Hgb Hct MCV MCH RDW Plt Count Lymph % (Auto) [place] # Seg Neutrophils % Seg Neuts % (Manual) Lymphocytes % (Manual) Seg Neutrophils # Seg Neutrophils # Man Lymphocytes # (Manual) D-Dimer > 86810 H ABG pH POC ABG pCO2 POC ABG pO2 ABG pO2 ABG O2 Saturation ABG Base Excess ABG Oxyhemoglobin ABG HCO3 ABG Hemoglobin Oxyhemoglobin Sodium Potassium 5.5 H Chloride 107.6 H Carbon Dioxide 21 L BUN 58 H Creatinine 1.7 H Glucose 231 H POC Glucose 231 H Lactic Acid Calcium Ferritin AST Magnesium Lactate Dehydrogenase C-Reactive Protein Total Protein Albumin Wtphu-8-Wjgoguwhw Tglyw-0-Nosofgbna PEP Interpretation Triglycerides TSH [place] Screen Complement C4 Coronavirus (PCR) 01/14/20 01/14/20 01/14/20 09:47 12:20 16:00 WBC RBC Hgb Hct MCV MCH RDW Plt Count Lymph % (Auto) [place] # Seg Neutrophils % Seg Neuts % (Manual) Lymphocytes % (Manual) Seg Neutrophils # Seg Neutrophils # Man Lymphocytes # (Manual) D-Dimer ABG pH POC ABG pCO2 POC ABG pO2 ABG pO2 69.3 L ABG O2 Saturation 94.4 L ABG Base Excess ABG Oxyhemoglobin ABG HCO3 ABG Hemoglobin Oxyhemoglobin 92.7 L Sodium Potassium Chloride 107.2 H Carbon Dioxide 21 L BUN 63 H Creatinine 1.5 H Glucose 217 H POC Glucose 238 H Lactic Acid Calcium Ferritin AST Magnesium Lactate Dehydrogenase C-Reactive Protein Total Protein 6.0 L Albumin 2.7 L Xgvti-7-Mithlezmb Lwxng-8-Qtzbwmbmg PEP Interpretation Triglycerides TSH [place] Screen Complement C4 Coronavirus (PCR) 01/14/20 01/14/20 01/14/20 18:24 19:01 23:50 WBC RBC Hgb Hct MCV MCH RDW Plt Count Lymph % (Auto) [place] # Seg Neutrophils % Seg Neuts % (Manual) Lymphocytes % (Manual) Seg Neutrophils # Seg Neutrophils # Man Lymphocytes # (Manual) D-Dimer ABG pH POC ABG pCO2 POC ABG pO2 ABG pO2 ABG O2 Saturation ABG Base Excess ABG Oxyhemoglobin ABG HCO3 ABG Hemoglobin Oxyhemoglobin Sodium 146 H Potassium 5.9 H Chloride 108.0 H Carbon Dioxide 20 L BUN 61 H Creatinine 1.4 H Glucose 254 H POC Glucose 228 H 321 H Lactic Acid Calcium Ferritin AST Magnesium Lactate Dehydrogenase C-Reactive Protein Total Protein Albumin Mdskv-0-Kjpaamvnh Oxnvk-4-Wvctlynws PEP Interpretation Triglycerides TSH [place] Screen Complement C4 Coronavirus (PCR) 01/14/20 01/14/20 01/14/20 Unknown Unknown Unknown WBC RBC Hgb Hct MCV MCH RDW Plt Count Lymph % (Auto) [place] # Seg Neutrophils % Seg Neuts % (Manual) Lymphocytes % (Manual) Seg Neutrophils # Seg Neutrophils # Man Lymphocytes # (Manual) D-Dimer ABG pH POC ABG pCO2 POC ABG pO2 ABG pO2 ABG O2 Saturation ABG Base Excess ABG Oxyhemoglobin ABG HCO3 ABG Hemoglobin Oxyhemoglobin Sodium Potassium Chloride Carbon Dioxide BUN Creatinine Glucose POC Glucose Lactic Acid Calcium Ferritin AST Magnesium Lactate Dehydrogenase C-Reactive Protein Total Protein Albumin 2.8 L Liwaq-6-Hikayhshf 0.6 H Mgrtw-2-Lxestmmva 1.1 H PEP Interpretation see below H Triglycerides TSH [facility] Screen Positive H Complement C4 76 H Coronavirus (PCR) 01/15/20 01/15/20 01/15/20 03:37 03:57 03:57 WBC 14.9 H RBC Hgb Hct MCV 75 L MCH 25 L RDW 15.4 H Plt Count Lymph % (Auto) 8.6 L [place] # 1.0 H Seg Neutrophils % 84.2 H Seg Neuts % (Manual) Lymphocytes % (Manual) Seg Neutrophils # 12.5 H Seg Neutrophils # Man Lymphocytes # (Manual) D-Dimer ABG pH 7.480 H POC ABG pCO2 POC ABG pO2 76.7 L ABG pO2 ABG O2 Saturation ABG Base Excess ABG Oxyhemoglobin ABG HCO3 ABG Hemoglobin Oxyhemoglobin Sodium 152 H Potassium Chloride 113.0 H Carbon Dioxide BUN 52 H Creatinine Glucose 288 H POC Glucose Lactic Acid Calcium Ferritin AST Magnesium Lactate Dehydrogenase C-Reactive Protein Total Protein Albumin Iizfn-4-Xagcsdaps Owyct-8-Tndaovzil PEP Interpretation Triglycerides TSH [place] Screen Complement C4 Coronavirus (PCR) 01/15/20 01/15/2001/14/20 05:50 11:56 14:35 WBC RBC Hgb Hct MCV MCH RDW Plt Count Lymph % (Auto) [place] # Seg Neutrophils % Seg Neuts % (Manual) Lymphocytes % (Manual) Seg Neutrophils # Seg Neutrophils # Man Lymphocytes # (Manual) D-Dimer ABG pH POC ABG pCO2 POC ABG pO2 ABG pO2 ABG O2 Saturation ABG Base Excess ABG Oxyhemoglobin ABG HCO3 ABG Hemoglobin Oxyhemoglobin Sodium Potassium Chloride Carbon Dioxide BUN Creatinine Glucose POC Glucose 259 H 162 H Lactic Acid Calcium Ferritin 332.4 H AST Magnesium Lactate Dehydrogenase C-Reactive Protein Total Protein Albumin Wqxkw-4-Jrrvdnxba Tdokq-3-Nufmcarzl PEP Interpretation Triglycerides TSH [facility] Screen Complement C4 Coronavirus (PCR) 01/15/20 01/15/20 01/15/20 14:35 14:35 14:35 WBC RBC Hgb Hct MCV MCH RDW Plt Count Lymph % (Auto) [place] # Seg Neutrophils % Seg Neuts % (Manual) Lymphocytes % (Manual) Seg Neutrophils # Seg Neutrophils # Man Lymphocytes # (Manual) D-Dimer ABG pH POC ABG pCO2 POC ABG pO2 ABG pO2 ABG O2 Saturation ABG Base Excess ABG Oxyhemoglobin ABG HCO3 ABG Hemoglobin Oxyhemoglobin Sodium Potassium Chloride Carbon Dioxide BUN Creatinine Glucose POC Glucose Lactic Acid Calcium Ferritin AST Magnesium 3.00 H Lactate Dehydrogenase 747 H C-Reactive Protein 7.60 H Total Protein Albumin Gyqcm-7-Denytftkq Fggwd-1-Atqsvngtd PEP Interpretation Triglycerides TSH 0.221 L [facility] Screen Complement C4 Coronavirus (PCR) 01/15/20 01/15/20 01/15/20 16:18 17:31 23:26 WBC RBC Hgb Hct MCV MCH RDW Plt Count Lymph % (Auto) [place] # Seg Neutrophils % Seg Neuts % (Manual) Lymphocytes % (Manual) Seg Neutrophils # Seg Neutrophils # Man Lymphocytes # (Manual) D-Dimer ABG pH 7.510 H POC ABG pCO2 POC ABG pO2 76.6 L ABG pO2 ABG O2 Saturation ABG Base Excess ABG Oxyhemoglobin ABG HCO3 ABG Hemoglobin Oxyhemoglobin Sodium Potassium Chloride Carbon Dioxide BUN Creatinine Glucose POC Glucose 239 H 226 H Lactic Acid Calcium Ferritin AST Magnesium Lactate Dehydrogenase C-Reactive Protein Total Protein Albumin Iloko-3-Dyectvdzo Rwlfz-5-Phldoujel PEP Interpretation Triglycerides TSH [facility] Screen Complement C4 Coronavirus (PCR) 01/16/20 01/16/20 01/16/20 03:33 04:00 04:00 WBC 13.6 H RBC Hgb Hct MCV 74 L MCH 25 L RDW 15.4 H Plt Count Lymph % (Auto) [place] # Seg Neutrophils % Seg Neuts % (Manual) 91.0 H Lymphocytes % (Manual) 5.0 L Seg Neutrophils # Seg Neutrophils # Man 12.4 H Lymphocytes # (Manual) 0.7 L D-Dimer ABG pH 7.477 H POC ABG pCO2 POC ABG pO2 ABG pO2 ABG O2 Saturation ABG Base Excess ABG Oxyhemoglobin ABG HCO3 ABG Hemoglobin Oxyhemoglobin Sodium 151 H Potassium Chloride 113.8 H Carbon Dioxide BUN 45 H Creatinine Glucose 213 H POC Glucose Lactic Acid Calcium Ferritin AST Magnesium Lactate Dehydrogenase C-Reactive Protein Total Protein Albumin Mbeae-4-Pafkijxmy Pewun-9-Jsszuwsuf PEP Interpretation Triglycerides TSH [facility] Screen Complement C4 Coronavirus (PCR) 01/16/20 01/16/20 01/16/20 05:45 12:02 17:27 WBC RBC Hgb Hct MCV MCH RDW Plt Count Lymph % (Auto) [place] # Seg Neutrophils % Seg Neuts % (Manual) Lymphocytes % (Manual) Seg Neutrophils # Seg Neutrophils # Man Lymphocytes # (Manual) D-Dimer ABG pH POC ABG pCO2 POC ABG pO2 ABG pO2 ABG O2 Saturation ABG Base Excess ABG Oxyhemoglobin ABG HCO3 ABG Hemoglobin Oxyhemoglobin Sodium Potassium Chloride Carbon Dioxide BUN Creatinine Glucose POC Glucose 202 H 186 H 240 H Lactic Acid Calcium Ferritin AST Magnesium Lactate Dehydrogenase C-Reactive Protein Total Protein Albumin Lfqtw-2-Bxhoijazo Muyxq-7-Nchbdhzdo PEP Interpretation Triglycerides TSH [place] Screen Complement C4 Coronavirus (PCR) 01/17/20 01/17/20 01/17/20 00:07 04:50 05:46 WBC RBC Hgb Hct MCV MCH RDW Plt Count Lymph % (Auto) [place] # Seg Neutrophils % Seg Neuts % (Manual) Lymphocytes % (Manual) Seg Neutrophils # Seg Neutrophils # Man Lymphocytes # (Manual) D-Dimer ABG pH 7.494 H POC ABG pCO2 POC ABG pO2 ABG pO2 73.4 L ABG O2 Saturation ABG Base Excess ABG Oxyhemoglobin ABG HCO3 ABG Hemoglobin Oxyhemoglobin 94.4 L Sodium Potassium Chloride Carbon Dioxide BUN Creatinine Glucose POC Glucose 207 H 170 H Lactic Acid Calcium Ferritin AST Magnesium Lactate Dehydrogenase C-Reactive Protein Total Protein Albumin Mgrnk-6-Xubvbhlcd Hvswt-2-Grudomnds PEP Interpretation Triglycerides TSH [place] Screen Complement C4 Coronavirus (PCR) 01/17/20 01/17/20 01/17/20 06:00 06:00 11:32 WBC 11.5 H RBC Hgb Hct MCV 75 L MCH 25 L RDW 15.5 H Plt Count Lymph % (Auto) [place] # Seg Neutrophils % Seg Neuts % (Manual) 81.0 H Lymphocytes % (Manual) 10.0 L Seg Neutrophils # Seg Neutrophils # Man 9.3 H Lymphocytes # (Manual) D-Dimer ABG pH POC ABG pCO2 POC ABG pO2 ABG pO2 ABG O2 Saturation ABG Base Excess ABG Oxyhemoglobin ABG HCO3 ABG Hemoglobin Oxyhemoglobin Sodium 151 H Potassium Chloride 113.6 H Carbon Dioxide BUN 40 H Creatinine Glucose 149 H POC Glucose 229 H Lactic Acid Calcium Ferritin AST Magnesium Lactate Dehydrogenase C-Reactive Protein Total Protein Albumin Wjtxn-3-Ywpplbwqa Ebrmu-0-Dyjlpyihy PEP Interpretation Triglycerides TSH [place] Screen Complement C4 Coronavirus (PCR) 01/17/20 01/17/20 01/17/20 13:40 13:40 13:40 WBC RBC Hgb Hct MCV MCH RDW Plt Count Lymph % (Auto) [place] # Seg Neutrophils % Seg Neuts % (Manual) Lymphocytes % (Manual) Seg Neutrophils # Seg Neutrophils # Man Lymphocytes # (Manual) D-Dimer 1878.79 H ABG pH POC ABG pCO2 POC ABG pO2 ABG pO2 ABG O2 Saturation ABG Base Excess ABG Oxyhemoglobin ABG HCO3 ABG Hemoglobin Oxyhemoglobin Sodium Potassium Chloride Carbon Dioxide BUN Creatinine Glucose POC Glucose Lactic Acid Calcium Ferritin 322.8 H AST Magnesium Lactate Dehydrogenase 587 H C-Reactive Protein 4.60 H Total Protein Albumin Zzqlq-2-Advvsrrvu Adwcs-8-Ujsxzxsaj PEP Interpretation Triglycerides TSH [place] Screen Complement C4 Coronavirus (PCR) 01/17/20 01/17/20 01/17/20 17:45 21:30 23:53 WBC RBC Hgb Hct MCV MCH RDW Plt Count Lymph % (Auto) [place] # Seg Neutrophils % Seg Neuts % (Manual) Lymphocytes % (Manual) Seg Neutrophils # Seg Neutrophils # Man Lymphocytes # (Manual) D-Dimer ABG pH POC ABG pCO2 POC ABG pO2 ABG pO2 179.6 H ABG O2 Saturation 99.2 H ABG Base Excess ABG Oxyhemoglobin ABG HCO3 ABG Hemoglobin 11.8 L Oxyhemoglobin Sodium Potassium Chloride Carbon Dioxide BUN Creatinine Glucose POC Glucose 364 H 272 H Lactic Acid Calcium Ferritin AST Magnesium Lactate Dehydrogenase C-Reactive Protein Total Protein Albumin Tjwkb-5-Fgdxarzrf Tzjfn-9-Mlqrdbyjm PEP Interpretation Triglycerides TSH [place] Screen Complement C4 Coronavirus (PCR) 01/18/20 01/18/20 01/18/20 03:40 04:00 05:00 WBC RBC Hgb Hct MCV MCH RDW Plt Count Lymph % (Auto) [place] # Seg Neutrophils % Seg Neuts % (Manual) Lymphocytes % (Manual) Seg Neutrophils # Seg Neutrophils # Man Lymphocytes # (Manual) D-Dimer ABG pH POC ABG pCO2 POC ABG pO2 ABG pO2 162.6 H ABG O2 Saturation ABG Base Excess ABG Oxyhemoglobin ABG HCO3 ABG Hemoglobin Oxyhemoglobin Sodium 150 H Potassium Chloride 113.4 H Carbon Dioxide BUN 44 H Creatinine Glucose 268 H POC Glucose Lactic Acid Calcium Ferritin AST Magnesium Lactate Dehydrogenase C-Reactive Protein Total Protein Albumin [place]-3-Uhwdoscwo Iyrod-1-Jvennedjm PEP Interpretation Triglycerides 198 H TSH [place] Screen Complement C4 Coronavirus (PCR) 01/18/20 01/18/20 01/18/20 05:54 11:21 17:27 WBC RBC Hgb Hct MCV MCH RDW Plt Count Lymph % (Auto) [place] # Seg Neutrophils % Seg Neuts % (Manual) Lymphocytes % (Manual) Seg Neutrophils # Seg Neutrophils # Man Lymphocytes # (Manual) D-Dimer ABG pH POC ABG pCO2 POC ABG pO2 ABG pO2 ABG O2 Saturation ABG Base Excess ABG Oxyhemoglobin ABG HCO3 ABG Hemoglobin Oxyhemoglobin Sodium Potassium Chloride Carbon Dioxide BUN Creatinine Glucose POC Glucose 271 H 244 H 232 H Lactic Acid Calcium Ferritin AST Magnesium Lactate Dehydrogenase C-Reactive Protein Total Protein Albumin Ymjol-8-Kelnvrhes Tehku-0-Wlxeijnza PEP Interpretation Triglycerides TSH [facility] Screen Complement C4 Coronavirus (PCR) 01/19/20 01/19/20 01/19/20 00:12 04:00 04:40 WBC RBC Hgb Hct MCV MCH RDW Plt Count Lymph % (Auto) [place] # Seg Neutrophils % Seg Neuts % (Manual) Lymphocytes % (Manual) Seg Neutrophils # Seg Neutrophils # Man Lymphocytes # (Manual) D-Dimer ABG pH POC ABG pCO2 POC ABG pO2 ABG pO2 117.2 H ABG O2 Saturation ABG Base Excess ABG Oxyhemoglobin ABG HCO3 ABG Hemoglobin 9.7 L Oxyhemoglobin Sodium 146 H Potassium Chloride 111.3 H Carbon Dioxide BUN 38 H Creatinine Glucose 168 H POC Glucose 143 H Lactic Acid Calcium Ferritin AST Magnesium Lactate Dehydrogenase C-Reactive Protein Total Protein Albumin Abavf-8-Lkineuyqp Oshkg-4-Kworhxdus PEP Interpretation Triglycerides TSH [place] Screen Complement C4 Coronavirus (PCR) 01/19/20 01/19/20 01/19/20 05:41 12:02 18:13 WBC RBC Hgb Hct MCV MCH RDW Plt Count Lymph % (Auto) [place] # Seg Neutrophils % Seg Neuts % (Manual) Lymphocytes % (Manual) Seg Neutrophils # Seg Neutrophils # Man Lymphocytes # (Manual) D-Dimer ABG pH POC ABG pCO2 POC ABG pO2 ABG pO2 ABG O2 Saturation ABG Base Excess ABG Oxyhemoglobin ABG HCO3 ABG Hemoglobin Oxyhemoglobin Sodium Potassium Chloride Carbon Dioxide BUN Creatinine Glucose POC Glucose 171 H 208 H 272 H Lactic Acid Calcium Ferritin AST Magnesium Lactate Dehydrogenase C-Reactive Protein Total Protein Albumin Kqcuq-2-Dcmbasieg Fghop-6-Iygfzfqyi PEP Interpretation Triglycerides TSH [place] Screen Complement C4 Coronavirus (PCR) 01/20/20 01/20/20 01/20/20 00:13 04:21 05:30 WBC RBC Hgb Hct MCV MCH RDW Plt Count Lymph % (Auto) [place] # Seg Neutrophils % Seg Neuts % (Manual) Lymphocytes % (Manual) Seg Neutrophils # Seg Neutrophils # Man Lymphocytes # (Manual) D-Dimer ABG pH POC ABG pCO2 POC ABG pO2 ABG pO2 ABG O2 Saturation ABG Base Excess ABG Oxyhemoglobin ABG HCO3 26.8 H ABG Hemoglobin 10.7 L Oxyhemoglobin 94.3 L Sodium Potassium Chloride Carbon Dioxide BUN Creatinine Glucose POC Glucose 223 H 129 H Lactic Acid Calcium Ferritin AST Magnesium Lactate Dehydrogenase C-Reactive Protein Total Protein Albumin Aowuf-3-Uvkdwpbyp Gwflb-6-Gwsuuzqmk PEP Interpretation Triglycerides TSH [place] Screen Complement C4 Coronavirus (PCR) 01/20/20 01/20/20 01/20/20 11:14 11:14 11:14 WBC RBC Hgb Hct MCV MCH RDW Plt Count Lymph % (Auto) [place] # Seg Neutrophils % Seg Neuts % (Manual) Lymphocytes % (Manual) Seg Neutrophils # Seg Neutrophils # Man Lymphocytes # (Manual) D-Dimer 1221.96 H ABG pH POC ABG pCO2 POC ABG pO2 ABG pO2 ABG O2 Saturation ABG Base Excess ABG Oxyhemoglobin ABG HCO3 ABG Hemoglobin Oxyhemoglobin Sodium Potassium Chloride Carbon Dioxide BUN Creatinine Glucose POC Glucose Lactic Acid Calcium Ferritin 364.6 H AST Magnesium Lactate Dehydrogenase 403 H C-Reactive Protein 5.10 H Total Protein Albumin Unwtw-8-Yyqculfgz Ssyrk-9-Obdewufsd PEP Interpretation Triglycerides TSH [place] Screen Complement C4 Coronavirus (PCR) 01/20/20 01/20/20 01/20/20 12:01 18:10 23:07 WBC RBC Hgb Hct MCV MCH RDW Plt Count Lymph % (Auto) [place] # Seg Neutrophils % Seg Neuts % (Manual) Lymphocytes % (Manual) Seg Neutrophils # Seg Neutrophils # Man Lymphocytes # (Manual) D-Dimer ABG pH POC ABG pCO2 POC ABG pO2 ABG pO2 ABG O2 Saturation ABG Base Excess ABG Oxyhemoglobin ABG HCO3 ABG Hemoglobin Oxyhemoglobin Sodium Potassium Chloride Carbon Dioxide BUN Creatinine Glucose POC Glucose 260 H 317 H 237 H Lactic Acid Calcium Ferritin AST Magnesium Lactate Dehydrogenase C-Reactive Protein Total Protein Albumin Zalkb-1-Sdsgngljp Ptpwi-3-Nedcrntrg PEP Interpretation Triglycerides TSH [place] Screen Complement C4 Coronavirus (PCR) 01/21/20 01/21/20 01/21/20 05:25 05:25 05:42 WBC 11.3 H RBC Hgb 9.1 L Hct 28.9 L MCV 77 L MCH 24 L RDW Plt Count Lymph % (Auto) [place] # Seg Neutrophils % Seg Neuts % (Manual) Lymphocytes % (Manual) Seg Neutrophils # Seg Neutrophils # Man Lymphocytes # (Manual) D-Dimer ABG pH POC ABG pCO2 POC ABG pO2 ABG pO2 ABG O2 Saturation ABG Base Excess ABG Oxyhemoglobin ABG HCO3 ABG Hemoglobin Oxyhemoglobin Sodium 147 H Potassium Chloride 111.0 H Carbon Dioxide 31 H D BUN 20 H Creatinine Glucose 103 H POC Glucose 110 H Lactic Acid Calcium 8.2 L Ferritin AST Magnesium Lactate Dehydrogenase C-Reactive Protein Total Protein Albumin Mhiif-0-Idpngvumr Dgbhw-0-Mvyfeprcj PEP Interpretation Triglycerides TSH [place] Screen Complement C4 Coronavirus (PCR) 01/21/20 01/21/20 01/21/20 11:49 18:41 21:53 WBC RBC Hgb Hct MCV MCH RDW Plt Count Lymph % (Auto) [place] # Seg Neutrophils % Seg Neuts % (Manual) Lymphocytes % (Manual) Seg Neutrophils # Seg Neutrophils # Man Lymphocytes # (Manual) D-Dimer ABG pH POC ABG pCO2 POC ABG pO2 ABG pO2 ABG O2 Saturation ABG Base Excess ABG Oxyhemoglobin ABG HCO3 ABG Hemoglobin Oxyhemoglobin Sodium Potassium Chloride Carbon Dioxide BUN Creatinine Glucose POC Glucose 147 H 290 H 255 H Lactic Acid Calcium Ferritin AST Magnesium Lactate Dehydrogenase C-Reactive Protein Total Protein Albumin Ufgsb-4-Wjcnclkog Cwzem-8-Vekumqemo PEP Interpretation Triglycerides TSH [place] Screen Complement C4 Coronavirus (PCR) 01/22/20 01/22/20 01/22/20 03:35 04:42 05:23 WBC RBC Hgb Hct MCV MCH RDW Plt Count Lymph % (Auto) [place] # Seg Neutrophils % Seg Neuts % (Manual) Lymphocytes % (Manual) Seg Neutrophils # Seg Neutrophils # Man Lymphocytes # (Manual) D-Dimer ABG pH 7.46 H POC ABG pCO2 POC ABG pO2 ABG pO2 ABG O2 Saturation ABG Base Excess ABG Oxyhemoglobin ABG HCO3 ABG Hemoglobin 10.4 L Oxyhemoglobin Sodium 148 H Potassium 3.5 L Chloride 108.1 H Carbon Dioxide BUN 19 H Creatinine Glucose 159 H POC Glucose 173 H Lactic Acid Calcium 8.1 L Ferritin AST Magnesium Lactate Dehydrogenase C-Reactive Protein Total Protein Albumin Rcogi-2-Fpgdejpla Ptgwi-7-Fsmgfwstb PEP Interpretation Triglycerides TSH [place] Screen Complement C4 Coronavirus (PCR) 01/22/20 01/22/20 01/22/20 12:41 17:46 23:06 WBC RBC Hgb Hct MCV MCH RDW Plt Count Lymph % (Auto) [place] # Seg Neutrophils % Seg Neuts % (Manual) Lymphocytes % (Manual) Seg Neutrophils # Seg Neutrophils # Man Lymphocytes # (Manual) D-Dimer ABG pH POC ABG pCO2 POC ABG pO2 ABG pO2 ABG O2 Saturation ABG Base Excess ABG Oxyhemoglobin ABG HCO3 ABG Hemoglobin Oxyhemoglobin Sodium Potassium Chloride Carbon Dioxide BUN Creatinine Glucose POC Glucose 284 H 245 H 245 H Lactic Acid Calcium Ferritin AST Magnesium Lactate Dehydrogenase C-Reactive Protein Total Protein Albumin Hyfme-0-Uhibpicgg Tzedr-2-Gyamdvumc PEP Interpretation Triglycerides TSH [place] Screen Complement C4 Coronavirus (PCR) 01/23/20 01/23/20 01/23/20 05:50 06:10 06:10 WBC RBC Hgb Hct MCV MCH RDW Plt Count Lymph % (Auto) [place] # Seg Neutrophils % Seg Neuts % (Manual) Lymphocytes % (Manual) Seg Neutrophils # Seg Neutrophils # Man Lymphocytes # (Manual) D-Dimer 451.53 H ABG pH POC ABG pCO2 POC ABG pO2 ABG pO2 ABG O2 Saturation ABG Base Excess ABG Oxyhemoglobin ABG HCO3 ABG Hemoglobin Oxyhemoglobin Sodium Potassium Chloride Carbon Dioxide BUN Creatinine Glucose POC Glucose 184 H Lactic Acid Calcium Ferritin AST Magnesium Lactate Dehydrogenase C-Reactive Protein 3.30 H Total Protein Albumin Vdbyp-8-Worasjhfl Xvcwp-4-Bkqqufeay PEP Interpretation Triglycerides TSH [place] Screen Complement C4 Coronavirus (PCR) CT scan - chest: pending (pending) Allied health notes reviewed: nursing
[2020-01-23 16:29] LABS: Blood Urea Nitrogen 19 mg/dL (7-17); Calcium 7.6 mg/dL (8.4-10.2); Hemolysis Index 0
[2020-01-23 16:33] LABS: BUN/Creatinine Ratio 38
[2020-01-23 23:04] LABS: Basophils # (Auto) 0.1 K/mm3 (0.0-0.1); Basophils % (Auto) 0.9 % (0.0-1.8); Eosinophils # (Auto) 0.2 K/mm3 (0.0-0.4); Eosinophils % (Auto) 1.4 % (0.0-4.3); Hematocrit 30.5 % (30.3-42.9); Hemoglobin 9.7 gm/dl (10.1-14.3); Lymphocytes # (Auto) 2.7 K/mm3 (1.2-5.4); Lymphocytes % (Auto) 21.2 % (13.4-35.0); Mean Corpuscular HGB Conc 32 % (30-34); Mean Corpuscular Volume 77 fl (79-97); Monocytes # (Auto) 1.2 K/mm3 (0.0-0.8); Monocytes % (Auto) 9.1 % (0.0-7.3); Platelet Count 301 K/mm3 (140-440); Red Blood Count 3.95 M/mm3 (3.65-5.03); Red Cell Distribution Width 15.2 % (13.2-15.2)
[2020-01-24] MEDS: HALOPERIDOL LACTATE 5 MG/1 ML INJ IV PRN (01:38)
[2020-01-24] MEDS: VANCOMYCIN 1,750 MG in SODIUM CHLORIDE 0.9% 500 ML 500 ML IV SCH ×2 (04:20→19:37)
[2020-01-24] MEDS: hydrALAZINE 25 MG TAB PO SCH ×3 (05:44→23:05)
[2020-01-24] MEDS: INSULIN LISPRO 100 UNIT/ML VIAL 3 mL SUB-Q SCH ×3 (05:44→18:41)
[2020-01-24 06:26] LABS: Basophils % (Auto) 0.4 % (0.0-1.8); Eosinophils # (Auto) 0.2 K/mm3 (0.0-0.4); Eosinophils % (Auto) 1.2 % (0.0-4.3); Hematocrit 28.6 % (30.3-42.9); Hemoglobin 9.3 gm/dl (10.1-14.3); Lymphocytes # (Auto) 2.3 K/mm3 (1.2-5.4); Lymphocytes % (Auto) 18.5 % (13.4-35.0); Mean Corpuscular HGB Conc 33 % (30-34); Mean Corpuscular Volume 77 fl (79-97); Monocytes # (Auto) 1.1 K/mm3 (0.0-0.8); Monocytes % (Auto) 8.7 % (0.0-7.3); Platelet Count 303 K/mm3 (140-440); Red Blood Count 3.73 M/mm3 (3.65-5.03); Red Cell Distribution Width 14.7 % (13.2-15.2)
[2020-01-24 06:46] LABS: Blood Urea Nitrogen 15 mg/dL (7-17); Calcium 8.7 mg/dL (8.4-10.2); Hemolysis Index 1
[2020-01-24 06:50] LABS: BUN/Creatinine Ratio 21
--- NOTE | 2020-01-24 07:35 | Progress Note ---
Assessment and Plan Subjective Date of service: 01/21/20 Principal diagnosis: Ac. hypoxemic resp failure; COVID infection; PNA; ARACELI; Thrombocytopenia Interval history: Assessment and plan Acute hypoxic respiratory failure. secondary to COVID-19 infection. Patient remains on mechanical ventilation. Pulmonary following. Patient extubated today Post extubation on BiPAP COVID-19 pneumonia. Patient was initially diagnosed 8 days prior to admission. Inflammatory markers reviewed. ID following. Continue dexamethasone 6 mg IV for completion of 10 days (day 9 of 10). Treated with remdesivir for 4 days and stopped on 01/17/2020 per ID recommendation because of bradycardia. Continue to trend inflammatory markers. Continue full dose anticoagulation given the high d-dimer. Sepsis. Etiology secondary to above. Off antibiotics Morbid obesity. Counseling once patient is extubated Severe bradycardia : Resolved. cardiology consult note reviewed Likely secondary to Decadron/ ? remdesivir No further recommendations Elevated LFTs/transaminitis.-Improved Etiology likely secondary to sepsis/COVID-19 Acute kidney injury. Improved Etiology secondary to sepsis/ATN. Discussed with Dr. Sheikh. Nephrology signed off Hypernatremia Secondary to dehydration Resolved Serum sodium down to 146 Hyperkalemia. Resolved Etiology likely secondary to above. Hypertension Intermittently uncontrolled, most likely secondary to agitation/anxiety Will down regulate blood pressure medication Subjective Date of service: 01/23/20 Principal diagnosis: Ac. hypoxemic resp failure; COVID infection; PNA; ARACELI; Thrombocytopenia Interval history: History of present illness: 39 YO Female with MO, Obesity Hypoventilation Syndrome, DM, Asthma presents to ED for evaluation. Patient states that she has experienced shortness of breath over the past 3 days with worsening symptoms over the past 1 day. Patient also acknowledges nonproductive cough, malaise, weakness, fatigue, decreased exercise tolerance, subjective fever and body aches. Patient states that she tested positive for coronavirus 8 days ago and has experienced worsening symptoms over the past 3 days. EMS was notified and upon arrival the patient was found to be in distress. Patient placed on submental oxygen and transported to [facility] for further care and evaluation. Patient seen and evaluated in the emergency department. Lab and imaging studies reviewed. Patient found to have a pulse oximetry of 80% on room air which is consistent with acute hypoxemic respiratory failure as well as a fever with a temperature of 101.3 F. Patient underwent chest x-ray which revealed bilateral pneumonia which was complicated by sepsis. Patient admitted to medical floor and initiated on pneumonia protocol as well as COVID-19 protocol as well as sepsis protocol. Patient denies chills, chest pain, palpitations, productive cough, skin rash, recent ill contacts. Patient acknowledges positive coronavirus infection. No prior admission for review. All medication listed at time of admission has been reconciled. Coronavirus PCR has been ordered and is pending at time of admission. 01/16/2020; patient is still on mechanical ventilation FiO2 40, PEEP 14, patient is on fentanyl, Versed, propofol. Patient proned. We will continue to monitor. Patient is off IV antibiotics. Treated for 5 days with IV ceftriaxone. ID, nephrology and pulmonary consult appreciated 01/17/2020; patient is still on mechanical ventilation FiO2 40, PEEP 14, patient is on fentanyl, Versed, propofol. Patient proned. We will continue to monitor. Patient is off IV antibiotics. Treated for 5 days with IV ceftriaxone. ID, nephrology and pulmonary consult appreciated. Patient has elevated sodium level and advised to increase free water intake through the NG tube feeding. 01/18/2020; patient is still on mechanical ventilation with FiO2 of 40 and PEEP of 14 patient is on fentanyl and Versed for sedation. Patient is on dex amethasone day 7 and probably severe was stopped yesterday after fourth dose per ID recommendation, patient is bradycardic. Cardiology was consulted and recommend to follow her closely. If heart rates below 40 we want to give her atropine. I discussed the management plan with her father Mr. Baxter in detail at [phone]. Mr. Baxter said his daughter was suffering from asthma and bipolar disorder. 01/19/20; patient is on mechanical ventilation FiO2 of 35 and PEEP of 8, patient is on fentanyl and Versed for sedation. Patient is on dexamethasone day 8. From the severe discontinued after she took for 4 days per ID recommendation due to bradycardia. Cardiology and nephrology consult appreciated. Discussed with her father in detail about the management plan on 01/18/2020. Continue with the same management. Vent management as per interstate bus dispatcher. 01/19 patient remains on vent, on FiO2 of 30% and PEEP of 8. She is on Diprivan and fentanyl. Per discussion with RN ,patient is anxious and intermittently agitated. Patient is awake and alert. Unable to perform review of systems secondary to patient being intubated. All interdisciplinary notes reviewed Lab results reviewed 01/20 no acute events overnight, groggy secondary to sedation, opens eyes to verbal stimulus, yesterday's events noted, BP now well controlled with heart rate also in the normal range. Will adjust blood pressure medication 01/22/20 no acute events overnight, opens eyes to verbal stimulus, yesterday's events noted, BP now well controlled with heart rate also in the normal range. Will adjust blood pressure medication 12/27/2019--patient being weaned so that he can be extubated Objective - Constitutional Vitals: Vital Signs - 12hr 01/23/20 01/23/20 01/23/20 20:00 20:15 20:30 Temperature 98.6 F Pulse Rate 105 H 110 H Pulse Rate [ 106 H From Monitor] Respiratory 23 22 Rate Blood Pressure 150/80 138/78 O2 Sat by Pulse 99 98 96 Oximetry 01/23/20 01/23/20 01/23/20 21:01 21:30 22:01 Temperature Pulse Rate 109 H 104 H 129 H Pulse Rate [ From Monitor] Respiratory 21 21 10 L Rate Blood Pressure 160/86 160/85 177/85 O2 Sat by Pulse 96 98 93 Oximetry 01/23/20 01/23/20 01/23/20 22:08 22:15 22:31 Temperature Pulse Rate 107 H 101 H 104 H Pulse Rate [ From Monitor] Respiratory 17 15 Rate Blood Pressure 172/88 173/94 173/94 O2 Sat by Pulse 98 Oximetry 01/23/20 01/23/20 01/23/20 22:57 23:00 23:30 Temperature Pulse Rate 112 H 112 H 112 H Pulse Rate [ From Monitor] Respiratory 17 17 19 Rate Blood Pressure 166/88 146/68 155/76 O2 Sat by Pulse 99 97 97 Oximetry 01/24/20 01/24/20 01/24/20 00:00 00:30 01:00 Temperature 98.9 F Pulse Rate 115 H 107 H 104 H Pulse Rate [ 103 H From Monitor] Respiratory 20 17 18 Rate Blood Pressure 163/81 150/75 154/79 O2 Sat by Pulse 98 97 98 Oximetry 01/24/20 01/24/20 01/24/20 01:30 02:01 02:02 Temperature Pulse Rate 130 H 140 H 140 H Pulse Rate [ From Monitor] Respiratory 17 15 35 H Rate Blood Pressure 185/106 174/85 201/118 O2 Sat by Pulse 98 96 98 Oximetry 01/24/20 01/24/20 01/24/20 02:22 02:31 03:01 Temperature Pulse Rate 108 H 94 H 121 H Pulse Rate [ From Monitor] Respiratory 12 21 Rate Blood Pressure 201/89 139/72 178/98 O2 Sat by Pulse 95 95 Oximetry 01/24/20 01/24/20 01/24/20 03:31 04:00 04:01 Temperature 98.9 F Pulse Rate 99 H 115 H 114 H Pulse Rate [ 100 H From Monitor] Respiratory 16 19 13 Rate Blood Pressure 144/72 144/72 O2 Sat by Pulse 98 99 96 Oximetry 01/24/20 01/24/20 01/24/20 04:31 05:00 05:30 Temperature Pulse Rate 105 H 113 H 100 H Pulse Rate [ From Monitor] Respiratory 29 H 20 17 Rate Blood Pressure 167/80 168/94 156/86 O2 Sat by Pulse 95 98 98 Oximetry 01/24/20 01/24/20 05:44 06:00 Temperature Pulse Rate 115 H 113 H Pulse Rate [ From Monitor] Respiratory 17 Rate Blood Pressure 156/86 142/75 O2 Sat by Pulse 99 Oximetry General appearance: Present: mild distress, well-nourished - EENT Eyes: PERRL, EOM intact ENT: hearing intact, clear oral mucosa Ears: bilateral: normal - Neck Neck: supple, normal ROM - Respiratory Respiratory effort: normal Respiratory: bilateral: CTA - Breasts Breasts: normal - Cardiovascular Heart rate: 88 Rhythm: regular Heart Sounds: Present: S1 & S2. Absent: gallop, rub Extremities: pulses intact, No edema, normal color, Full ROM - Gastrointestinal General gastrointestinal: Present: soft, non-tender, non-distended, normal bowel sounds - Genitourinary Female genitourinary: normal - Integumentary Integumentary: clear, warm, dry - Musculoskeletal Musculoskeletal: generalized weakness - Neurologic Neurologic: moves all extremities - Labs CBC & Chem 7: 01/24/20 06:00 01/24/20 06:00 Labs: Abnormal lab results 01/22/20 01/23/20 01/23/20 Range/Units 12:41 06:10 12:29 WBC (4.5-11.0) K/mm3 Hgb (10.1-14.3) gm/dl Hct (30.3-42.9) % MCV (79-97) fl MCH (28-32) pg [place] % (Auto) (0.0-7.3) % [place] # (Auto) (0.0-0.8) K/mm3 Seg Neutrophils % (40.0-70.0) % Seg Neutrophils # (1.8-7.7) K/mm3 Potassium (3.6-5.0) mmol/L Chloride 110.3 H (98-107) mmol/L BUN 19 H (7-17) mg/dL Creatinine 0.5 L (0.6-1.2) mg/dL Glucose 178 H (65-100) mg/dL POC Glucose 284 H 258 H (70-105) Calcium 7.6 L (8.4-10.2) mg/dL C-Reactive Protein 3.30 H (0.00-1.30) mg/dL 01/23/20 01/23/20 01/23/20 Range/Units 17:57 22:15 23:28 WBC 12.8 H (4.5-11.0) K/mm3 Hgb 9.7 L (10.1-14.3) gm/dl Hct (30.3-42.9) % MCV 77 L (79-97) fl MCH 25 L (28-32) pg [place] % (Auto) 9.1 H (0.0-7.3) % [place] # (Auto) 1.2 H (0.0-0.8) K/mm3 Seg Neutrophils % (40.0-70.0) % Seg Neutrophils # 8.6 H (1.8-7.7) K/mm3 Potassium (3.6-5.0) mmol/L Chloride (98-107) mmol/L BUN (7-17) mg/dL Creatinine (0.6-1.2) mg/dL Glucose (65-100) mg/dL POC Glucose 248 H 200 H (70-105) Calcium (8.4-10.2) mg/dL C-Reactive Protein (0.00-1.30) mg/dL 01/24/20 01/24/20 Range/Units 06:00 06:00 WBC 12.4 H (4.5-11.0) K/mm3 Hgb 9.3 L (10.1-14.3) gm/dl Hct 28.6 L (30.3-42.9) % MCV 77 L (79-97) fl MCH 25 L (28-32) pg [place] % (Auto) 8.7 H (0.0-7.3) % [place] # (Auto) 1.1 H (0.0-0.8) K/mm3 Seg Neutrophils % 71.2 H (40.0-70.0) % Seg Neutrophils # 8.8 H (1.8-7.7) K/mm3 Potassium 3.4 L (3.6-5.0) mmol/L Chloride 107.3 H (98-107) mmol/L BUN (7-17) mg/dL Creatinine (0.6-1.2) mg/dL Glucose (65-100) mg/dL POC Glucose (70-105) Calcium (8.4-10.2) mg/dL C-Reactive Protein (0.00-1.30) mg/dL
[2020-01-24] MEDS: CEFEPIME/NS 2 GM/100 ML 2 GM/100 ML BAG IV SCH ×2 (09:39→23:03)
[2020-01-24] MEDS: FAMOTIDINE 20 MG TAB PO SCH ×2 (09:40→23:04)
[2020-01-24] MEDS: clonazePAM 0.5 MG TAB PO SCH ×2 (09:40→23:05)
[2020-01-24] MEDS ORDERED: POTASSIUM CHLORIDE 20 MEQ PACKET FEEDTUBE SCH (10:00)
[2020-01-24] MEDS: NYSTATIN 500,000 UNIT/5 ML ORAL LIQD PO SCH ×3 (10:11→23:07)
[2020-01-24] MEDS: INSULIN GLARGINE 100 UNITS/ML SUB-Q SCH (10:11)
[2020-01-24] MEDS: ENOXAPARIN 120 MG/0.8 ML INJ SUB-Q SCH ×2 (10:11→23:03)
[2020-01-24] MEDS: cloNIDine 0.1 MG TAB PO SCH ×2 (10:12→23:04)
--- NOTE | 2020-01-24 11:02 | Progress Note ---
Assessment and Plan Acute hypoxemic respiratory failure s/p MVS Severe COVID infection Multifocal pneumonia Extreme obesity ARACELI- vasomotor nephropathy/COVID Thrombocytopenia Hyperglycemia Hypernatrmia -Place on NIPPV, patient to keep it on for now - NGT/small bowel feeding tube, continue enteric nutrition. - Avoid nephrotoxins, closely monitor renal function, renally dose all medications -Fluid conservative measures -Therapeutic anticoagulation with Lovenox, get lower extemity dopplers, if negatve change to VTE prophyalxis dosing - continue bronchodilators with pulmonary hygiene per RT - Continue to wean supplemental oxygen for target O2 sats > 92% - Accuchecks with glycemic control per SSI (While critically ill target blood glucose of 140-180 mg/dL; avoid hypoglycemia) - Maintenance of sleep-wake cycle, avoid delirium - Aspiration precautions, HOB >40 -Stress ulcer prophylaxis - Mobility protocol, off loading and skin assessment for pressure ulcer prevention - Monitor hemodynamics closely -Continue to monitor in the ICU for another 24 hours -PT/OT/MERCHANDISE COLLECTOR to evaluate and treat COVID SPECIFIC INTERVENTIONS -Airborne, contact isolation for COVID per facility protocols - s/p IV steroids-dexamethasone -Continue to trend d-dimer,and other inflammatory markers per facility protocol -No Convalescent plasma therapy- patient is blood less medicine and will not accept COVID convalescent plasma -s/p Remdesivir Discussed with the ICU team-RTRN CONDITION: FAIR PROGNOSIS: GUARDED CODE STATUS: FULL CODE Subjective Date of service: 01/24/20 Principal diagnosis: Ac. hypoxemic resp failure; COVID infection; PNA; ARACELI; Thrombocytopenia Interval history: Follow up fro acute hypoxemic respiratory failure s/p MVS; Severe-critical COVID infection: ARACELI; Extreme obesity: Seen and examined. 24 hour events reviewed. Vitals, albs,medications chart and imaging reviewed. Extubated, episodes of desaturations on high flow oxygen. BIPAP initiated at the bedside No fevers, no nausea or vomiting. NGT fro nutritional support Objective Vital Signs - 12hr 01/23/20 01/24/20 01/24/20 23:30 00:00 00:30 Temperature 98.9 F Pulse Rate 112 H 115 H 107 H Pulse Rate [ 103 H From Monitor] Respiratory 19 20 17 Rate Blood Pressure 155/76 163/81 150/75 O2 Sat by Pulse 97 98 97 Oximetry 01/24/20 01/24/20 01/24/20 01:00 01:30 02:01 Temperature Pulse Rate 104 H 130 H 140 H Pulse Rate [ From Monitor] Respiratory 18 17 15 Rate Blood Pressure 154/79 185/106 174/85 O2 Sat by Pulse 98 98 96 Oximetry 01/24/20 01/24/20 01/24/20 02:02 02:22 02:31 Temperature Pulse Rate 140 H 108 H 94 H Pulse Rate [ From Monitor] Respiratory 35 H 12 Rate Blood Pressure 201/118 201/89 139/72 O2 Sat by Pulse 98 95 Oximetry 01/24/20 01/24/20 01/24/20 03:01 03:31 04:00 Temperature 98.9 F Pulse Rate 121 H 99 H 115 H Pulse Rate [ 100 H From Monitor] Respiratory 21 16 19 Rate Blood Pressure 178/98 144/72 O2 Sat by Pulse 95 98 99 Oximetry 01/24/20 01/24/20 01/24/20 04:01 04:31 05:00 Temperature Pulse Rate 114 H 105 H 113 H Pulse Rate [ From Monitor] Respiratory 13 29 H 20 Rate Blood Pressure 144/72 167/80 168/94 O2 Sat by Pulse 96 95 98 Oximetry 01/24/20 01/24/20 01/24/20 05:30 05:44 06:00 Temperature Pulse Rate 100 H 115 H 113 H Pulse Rate [ From Monitor] Respiratory 17 17 Rate Blood Pressure 156/86 156/86 142/75 O2 Sat by Pulse 98 99 Oximetry 01/24/20 01/24/20 01/24/20 06:30 07:01 07:30 Temperature Pulse Rate 115 H 113 H 113 H Pulse Rate [ From Monitor] Respiratory 28 H 15 30 H Rate Blood Pressure 153/77 131/69 134/69 O2 Sat by Pulse 98 98 97 Oximetry 01/24/20 01/24/20 01/24/20 08:01 08:29 08:30 Temperature Pulse Rate 114 H 123 H Pulse Rate [ From Monitor] Respiratory 36 H 23 Rate Blood Pressure 141/75 156/81 O2 Sat by Pulse 95 97 96 Oximetry 01/24/20 01/24/20 10:12 10:30 Temperature Pulse Rate 124 H Pulse Rate [ From Monitor] Respiratory Rate Blood Pressure 160/88 O2 Sat by Pulse 98 Oximetry Constitutional: no acute distress, alert, other (Morbidly obese AAW, NGT in nares) Eyes: non-icteric ENT: oropharynx moist Neck: supple, no lymphadenopathy, no JVD Effort: mildly labored Ascultation: Bilateral: diminished breath sounds, rhonchi Percussion: Bilateral: not dull Cardiovascular: regular rate and rhythm, other Gastrointestinal: normoactive bowel sounds, soft, non-tender, non-distended (protuberant) Integumentary: normal Extremities: no cyanosis, no edema, pulses normal, no ischemia or petechiae Neurologic: normal mental status, non-focal exam, pupils equal and round, CN II- XII normal, motor strength normal and Psychiatric: anxious CBC and BMP: 01/24/20 06:00 01/24/20 06:00 ABG, PT/INR, D-dimer: ABG ABG pH 7.46 (7.320-7.450) H 01/22/20 03:35 POC ABG pCO2 36.6 mmHg (32.0-48.0) 01/22/20 03:35 ABG pCO2 46.1 mm Hg 01/20/20 04:21 POC ABG pO2 84.0 mmHg (83-108) 01/22/20 03:35 ABG pO2 81.7 mm Hg (80.0-90.0) 01/20/20 04:21 POC ABG HCO3 25.4 01/22/20 03:35 ABG O2 Saturation 96.5 % (95.0-99.0) 01/20/20 04:21 PT/INR, D-dimer D-Dimer 451.53 ng/mlDDU (0-234) H 01/23/20 06:10 Abnormal lab findings: Abnormal Labs 01/11/20 01/11/20 01/11/20 17:22 17:22 17:22 WBC RBC Hgb Hct MCV MCH RDW Plt Count Lymph % (Auto) [place] % (Auto) [place] # [place] # (Auto) Seg Neutrophils % Seg Neuts % (Manual) Lymphocytes % (Manual) Seg Neutrophils # Seg Neutrophils # Man Lymphocytes # (Manual) D-Dimer 622.52 H ABG pH POC ABG pCO2 POC ABG pO2 ABG pO2 ABG O2 Saturation ABG Base Excess ABG Oxyhemoglobin ABG HCO3 ABG Hemoglobin Oxyhemoglobin Sodium Potassium Chloride 97.6 L Carbon Dioxide 18 L BUN Creatinine Glucose 199 H POC Glucose Lactic Acid 2.20 H* Calcium Ferritin AST 68 H Magnesium Lactate Dehydrogenase C-Reactive Protein Total Protein Albumin 3.0 L Cjsns-3-Hjihgdbiq Gqupi-4-Ljjdxnelx PEP Interpretation Triglycerides TSH CHICA Screen Complement C4 Coronavirus (PCR) 01/11/20 01/11/20 01/11/20 17:22 17:22 23:29 WBC RBC Hgb Hct MCV MCH RDW Plt Count Lymph % (Auto) [place] % (Auto) [place] # [place] # (Auto) Seg Neutrophils % Seg Neuts % (Manual) Lymphocytes % (Manual) Seg Neutrophils # Seg Neutrophils # Man Lymphocytes # (Manual) D-Dimer ABG pH POC ABG pCO2 POC ABG pO2 ABG pO2 ABG O2 Saturation ABG Base Excess ABG Oxyhemoglobin ABG HCO3 ABG Hemoglobin Oxyhemoglobin Sodium Potassium Chloride Carbon Dioxide BUN Creatinine Glucose 202 H POC Glucose Lactic Acid 2.10 H* Calcium Ferritin 270.3 H AST Magnesium Lactate Dehydrogenase 610 H C-Reactive Protein 23.80 H Total Protein Albumin Gzplc-5-Zaajcrvhx Mablo-3-Vdjvzblmk PEP Interpretation Triglycerides TSH CHICA Screen Complement C4 Coronavirus (PCR) 01/12/20 01/12/20 01/12/20 07:07 07:07 09:00 WBC RBC 5.31 H Hgb Hct MCV 76 L MCH 25 L RDW 15.5 H Plt Count Lymph % (Auto) 11.2 L [place] % (Auto) [place] # [place] # (Auto) Seg Neutrophils % 85.2 H Seg Neuts % (Manual) Lymphocytes % (Manual) Seg Neutrophils # 9.2 H Seg Neutrophils # Man Lymphocytes # (Manual) D-Dimer ABG pH POC ABG pCO2 POC ABG pO2 ABG pO2 ABG O2 Saturation ABG Base Excess ABG Oxyhemoglobin ABG HCO3 ABG Hemoglobin Oxyhemoglobin Sodium Potassium Chloride Carbon Dioxide 21 L BUN 23 H Creatinine Glucose 206 H POC Glucose Lactic Acid Calcium Ferritin AST Magnesium Lactate Dehydrogenase C-Reactive Protein Total Protein Albumin Yefhr-1-Wbfeyjulu Eitsp-1-Xtdqujyea PEP Interpretation Triglycerides TSH CH[place] Screen Complement C4 Coronavirus (PCR) Positive A 01/13/20 01/13/20 01/13/20 01:02 04:45 05:10 WBC RBC Hgb Hct MCV MCH RDW Plt Count Lymph % (Auto) [place] % (Auto) [place] # [place] # (Auto) Seg Neutrophils % Seg Neuts % (Manual) Lymphocytes % (Manual) Seg Neutrophils # Seg Neutrophils # Man Lymphocytes # (Manual) D-Dimer > 21116 H ABG pH 7.19 L POC ABG pCO2 56.2 H POC ABG pO2 44.3 L 62.5 L ABG pO2 ABG O2 Saturation ABG Base Excess ABG Oxyhemoglobin 77.5 L 86.5 L ABG HCO3 ABG Hemoglobin Oxyhemoglobin Sodium Potassium Chloride Carbon Dioxide BUN Creatinine Glucose POC Glucose Lactic Acid Calcium Ferritin AST Magnesium Lactate Dehydrogenase C-Reactive Protein Total Protein Albumin Rqxtl-1-Klmkkerbu Barks-3-Ykhhtkuin PEP Interpretation Triglycerides TSH CHICA Screen Complement C4 Coronavirus (PCR) 01/13/20 01/13/20 01/13/20 05:10 05:54 12:07 WBC RBC Hgb Hct MCV MCH RDW Plt Count Lymph % (Auto) [place] % (Auto) [place] # [place] # (Auto) Seg Neutrophils % Seg Neuts % (Manual) Lymphocytes % (Manual) Seg Neutrophils # Seg Neutrophils # Man Lymphocytes # (Manual) D-Dimer ABG pH POC ABG pCO2 POC ABG pO2 ABG pO2 ABG O2 Saturation ABG Base Excess ABG Oxyhemoglobin ABG HCO3 ABG Hemoglobin Oxyhemoglobin Sodium Potassium Chloride Carbon Dioxide BUN Creatinine Glucose POC Glucose 356 H 309 H Lactic Acid Calcium Ferritin AST Magnesium Lactate Dehydrogenase 999 H C-Reactive Protein Total Protein Albumin Xwrni-1-Yeloqulat Dxaii-0-Lfwkqgylp PEP Interpretation Triglycerides TSH CHICA Screen Complement C4 Coronavirus (PCR) 01/13/20 01/13/20 01/13/20 12:54 18:46 18:50 WBC 14.0 H RBC Hgb Hct MCV 76 L MCH 25 L RDW 15.8 H Plt Count 113 L Lymph % (Auto) [place] % (Auto) [place] # [place] # (Auto) Seg Neutrophils % Seg Neuts % (Manual) 88.0 H Lymphocytes % (Manual) 2.0 L Seg Neutrophils # Seg Neutrophils # Man 12.3 H Lymphocytes # (Manual) 0.3 L D-Dimer ABG pH 7.290 L POC ABG pCO2 POC ABG pO2 ABG pO2 60.2 L ABG O2 Saturation 88.6 L ABG Base Excess -2.7 L ABG Oxyhemoglobin ABG HCO3 ABG Hemoglobin Oxyhemoglobin 87.1 L Sodium Potassium Chloride Carbon Dioxide BUN Creatinine Glucose POC Glucose 268 H Lactic Acid Calcium Ferritin AST Magnesium Lactate Dehydrogenase C-Reactive Protein Total Protein Albumin Irklr-6-Ugithesrz Cdtvo-0-Qlwcuobpu PEP Interpretation Triglycerides TSH CH[place] Screen Complement C4 Coronavirus (PCR) 01/13/20 01/14/20 01/14/20 23:53 00:31 03:13 WBC RBC Hgb Hct MCV MCH RDW Plt Count Lymph % (Auto) [place] % (Auto) [place] # [place] # (Auto) Seg Neutrophils % Seg Neuts % (Manual) Lymphocytes % (Manual) Seg Neutrophils # Seg Neutrophils # Man Lymphocytes # (Manual) D-Dimer ABG pH POC ABG pCO2 POC ABG pO2 ABG pO2 132.6 H ABG O2 Saturation ABG Base Excess -2.7 L ABG Oxyhemoglobin ABG HCO3 ABG Hemoglobin Oxyhemoglobin Sodium Potassium 5.3 H Chloride Carbon Dioxide BUN 55 H Creatinine 1.6 H Glucose 268 H POC Glucose 259 H Lactic Acid Calcium Ferritin AST 46 H Magnesium Lactate Dehydrogenase C-Reactive Protein Total Protein 6.1 L Albumin 3.1 L Loith-2-Ypcqqynbn Njuym-3-Ffynjrgao PEP Interpretation Triglycerides TSH [place] Screen Complement C4 Coronavirus (PCR) 01/14/20 01/14/20 01/14/20 05:23 06:06 09:47 WBC RBC Hgb Hct MCV MCH RDW Plt Count Lymph % (Auto) [place] % (Auto) [place] # [place] # (Auto) Seg Neutrophils % Seg Neuts % (Manual) Lymphocytes % (Manual) Seg Neutrophils # Seg Neutrophils # Man Lymphocytes # (Manual) D-Dimer > 07077 H ABG pH POC ABG pCO2 POC ABG pO2 ABG pO2 ABG O2 Saturation ABG Base Excess ABG Oxyhemoglobin ABG HCO3 ABG Hemoglobin Oxyhemoglobin Sodium Potassium 5.5 H Chloride 107.6 H Carbon Dioxide 21 L BUN 58 H Creatinine 1.7 H Glucose 231 H POC Glucose 231 H Lactic Acid Calcium Ferritin AST Magnesium Lactate Dehydrogenase C-Reactive Protein Total Protein Albumin Egzfo-7-Wjeiuretp Rqxcg-3-Msjzadsop PEP Interpretation Triglycerides TSH [place] Screen Complement C4 Coronavirus (PCR) 01/14/20 01/14/20 01/14/20 09:47 12:20 16:00 WBC RBC Hgb Hct MCV MCH RDW Plt Count Lymph % (Auto) [place] % (Auto) [place] # [place] # (Auto) Seg Neutrophils % Seg Neuts % (Manual) Lymphocytes % (Manual) Seg Neutrophils # Seg Neutrophils # Man Lymphocytes # (Manual) D-Dimer ABG pH POC ABG pCO2 POC ABG pO2 ABG pO2 69.3 L ABG O2 Saturation 94.4 L ABG Base Excess ABG Oxyhemoglobin ABG HCO3 ABG Hemoglobin Oxyhemoglobin 92.7 L Sodium Potassium Chloride 107.2 H Carbon Dioxide 21 L BUN 63 H Creatinine 1.5 H Glucose 217 H POC Glucose 238 H Lactic Acid Calcium Ferritin AST Magnesium Lactate Dehydrogenase C-Reactive Protein Total Protein 6.0 L Albumin 2.7 L Wzzzt-2-Jkgfcqkph Ullry-6-Thmrpqpzk PEP Interpretation Triglycerides TSH [place] Screen Complement C4 Coronavirus (PCR) 01/14/20 01/14/20 01/14/20 18:24 19:01 23:50 WBC RBC Hgb Hct MCV MCH RDW Plt Count Lymph % (Auto) [place] % (Auto) [place] # [place] # (Auto) Seg Neutrophils % Seg Neuts % (Manual) Lymphocytes % (Manual) Seg Neutrophils # Seg Neutrophils # Man Lymphocytes # (Manual) D-Dimer ABG pH POC ABG pCO2 POC ABG pO2 ABG pO2 ABG O2 Saturation ABG Base Excess ABG Oxyhemoglobin ABG HCO3 ABG Hemoglobin Oxyhemoglobin Sodium 146 H Potassium 5.9 H Chloride 108.0 H Carbon Dioxide 20 L BUN 61 H Creatinine 1.4 H Glucose 254 H POC Glucose 228 H 321 H Lactic Acid Calcium Ferritin AST Magnesium Lactate Dehydrogenase C-Reactive Protein Total Protein Albumin Kbcqh-6-Inoetihuh Njlco-4-Fxmfsecri PEP Interpretation Triglycerides TSH [place] Screen Complement C4 Coronavirus (PCR) 01/14/20 01/14/20 01/14/20 Unknown Unknown Unknown WBC RBC Hgb Hct MCV MCH RDW Plt Count Lymph % (Auto) [place] % (Auto) [place] # [place] # (Auto) Seg Neutrophils % Seg Neuts % (Manual) Lymphocytes % (Manual) Seg Neutrophils # Seg Neutrophils # Man Lymphocytes # (Manual) D-Dimer ABG pH POC ABG pCO2 POC ABG pO2 ABG pO2 ABG O2 Saturation ABG Base Excess ABG Oxyhemoglobin ABG HCO3 ABG Hemoglobin Oxyhemoglobin Sodium Potassium Chloride Carbon Dioxide BUN Creatinine Glucose POC Glucose Lactic Acid Calcium Ferritin AST Magnesium Lactate Dehydrogenase C-Reactive Protein Total Protein Albumin 2.8 L Dqdot-8-Nepbqkrct 0.6 H Rsuky-0-Yjorvyehx 1.1 H PEP Interpretation see below H Triglycerides TSH [place] Screen Positive H Complement C4 76 H Coronavirus (PCR) 01/15/20 01/15/20 01/15/20 03:37 03:57 03:57 WBC 14.9 H RBC Hgb Hct MCV 75 L MCH 25 L RDW 15.4 H Plt Count Lymph % (Auto) 8.6 L [place] % (Auto) [place] # 1.0 H [place] # (Auto) Seg Neutrophils % 84.2 H Seg Neuts % (Manual) Lymphocytes % (Manual) Seg Neutrophils # 12.5 H Seg Neutrophils # Man Lymphocytes # (Manual) D-Dimer ABG pH 7.480 H POC ABG pCO2 POC ABG pO2 76.7 L ABG pO2 ABG O2 Saturation ABG Base Excess ABG Oxyhemoglobin ABG HCO3 ABG Hemoglobin Oxyhemoglobin Sodium 152 H Potassium Chloride 113.0 H Carbon Dioxide BUN 52 H Creatinine Glucose 288 H POC Glucose Lactic Acid Calcium Ferritin AST Magnesium Lactate Dehydrogenase C-Reactive Protein Total Protein Albumin Gdara-0-Qlkowwffp Mygvd-2-Sifusclas PEP Interpretation Triglycerides TSH [place] Screen Complement C4 Coronavirus (PCR) 01/15/20 01/15/20 01/15/20 05:50 11:56 14:35 WBC RBC Hgb Hct MCV MCH RDW Plt Count Lymph % (Auto) [place] % (Auto) [place] # [place] # (Auto) Seg Neutrophils % Seg Neuts % (Manual) Lymphocytes % (Manual) Seg Neutrophils # Seg Neutrophils # Man Lymphocytes # (Manual) D-Dimer ABG pH POC ABG pCO2 POC ABG pO2 ABG pO2 ABG O2 Saturation ABG Base Excess ABG Oxyhemoglobin ABG HCO3 ABG Hemoglobin Oxyhemoglobin Sodium Potassium Chloride Carbon Dioxide BUN Creatinine Glucose POC Glucose 259 H 162 H Lactic Acid Calcium Ferritin 332.4 H AST Magnesium Lactate Dehydrogenase C-Reactive Protein Total Protein Albumin Bgibj-9-Wgqxcqvhs Pzusg-1-Knbetfjbl PEP Interpretation Triglycerides TSH [place] Screen Complement C4 Coronavirus (PCR) 01/15/20 01/15/20 01/15/20 14:35 14:35 14:35 WBC RBC Hgb Hct MCV MCH RDW Plt Count Lymph % (Auto) [place] % (Auto) [place] # [place] # (Auto) Seg Neutrophils % Seg Neuts % (Manual) Lymphocytes % (Manual) Seg Neutrophils # Seg Neutrophils # Man Lymphocytes # (Manual) D-Dimer ABG pH POC ABG pCO2 POC ABG pO2 ABG pO2 ABG O2 Saturation ABG Base Excess ABG Oxyhemoglobin ABG HCO3 ABG Hemoglobin Oxyhemoglobin Sodium Potassium Chloride Carbon Dioxide BUN Creatinine Glucose POC Glucose Lactic Acid Calcium Ferritin AST Magnesium 3.00 H Lactate Dehydrogenase 747 H C-Reactive Protein 7.60 H Total Protein Albumin Hglkr-9-Igkotccbz Fdfwq-8-Yavmhvbyj PEP Interpretation Triglycerides TSH 0.221 L CHICA Screen Complement C4 Coronavirus (PCR) 01/15/20 01/15/20 01/15/20 16:18 17:31 23:26 WBC RBC Hgb Hct MCV MCH RDW Plt Count Lymph % (Auto) [place] % (Auto) [place] # [place] # (Auto) Seg Neutrophils % Seg Neuts % (Manual) Lymphocytes % (Manual) Seg Neutrophils # Seg Neutrophils # Man Lymphocytes # (Manual) D-Dimer ABG pH 7.510 H POC ABG pCO2 POC ABG pO2 76.6 L ABG pO2 ABG O2 Saturation ABG Base Excess ABG Oxyhemoglobin ABG HCO3 ABG Hemoglobin Oxyhemoglobin Sodium Potassium Chloride Carbon Dioxide BUN Creatinine Glucose POC Glucose 239 H 226 H Lactic Acid Calcium Ferritin AST Magnesium Lactate Dehydrogenase C-Reactive Protein Total Protein Albumin Gopjo-5-Wdnmktjzy Ksidi-1-Nbdljxtzi PEP Interpretation Triglycerides TSH [place] Screen Complement C4 Coronavirus (PCR) 01/16/20 01/16/20 01/16/20 03:33 04:00 04:00 WBC 13.6 H RBC Hgb Hct MCV 74 L MCH 25 L RDW 15.4 H Plt Count Lymph % (Auto) [place] % (Auto) [place] # [place] # (Auto) Seg Neutrophils % Seg Neuts % (Manual) 91.0 H Lymphocytes % (Manual) 5.0 L Seg Neutrophils # Seg Neutrophils # Man 12.4 H Lymphocytes # (Manual) 0.7 L D-Dimer ABG pH 7.477 H POC ABG pCO2 POC ABG pO2 ABG pO2 ABG O2 Saturation ABG Base Excess ABG Oxyhemoglobin ABG HCO3 ABG Hemoglobin Oxyhemoglobin Sodium 151 H Potassium Chloride 113.8 H Carbon Dioxide BUN 45 H Creatinine Glucose 213 H POC Glucose Lactic Acid Calcium Ferritin AST Magnesium Lactate Dehydrogenase C-Reactive Protein Total Protein Albumin Usvqg-0-Flbwqnoir Kqibv-8-Bmzjpzdzy PEP Interpretation Triglycerides TSH [place] Screen Complement C4 Coronavirus (PCR) 01/16/20 01/16/20 01/16/20 05:45 12:02 17:27 WBC RBC Hgb Hct MCV MCH RDW Plt Count Lymph % (Auto) [place] % (Auto) [place] # [place] # (Auto) Seg Neutrophils % Seg Neuts % (Manual) Lymphocytes % (Manual) Seg Neutrophils # Seg Neutrophils # Man Lymphocytes # (Manual) D-Dimer ABG pH POC ABG pCO2 POC ABG pO2 ABG pO2 ABG O2 Saturation ABG Base Excess ABG Oxyhemoglobin ABG HCO3 ABG Hemoglobin Oxyhemoglobin Sodium Potassium Chloride Carbon Dioxide BUN Creatinine Glucose POC Glucose 202 H 186 H 240 H Lactic Acid Calcium Ferritin AST Magnesium Lactate Dehydrogenase C-Reactive Protein Total Protein Albumin Kxwow-8-Ihawnkgfw Scvsp-7-Swviozbsv PEP Interpretation Triglycerides TSH [place] Screen Complement C4 Coronavirus (PCR) 01/17/20 01/17/20 01/17/20 00:07 04:50 05:46 WBC RBC Hgb Hct MCV MCH RDW Plt Count Lymph % (Auto) [place] % (Auto) [place] # [place] # (Auto) Seg Neutrophils % Seg Neuts % (Manual) Lymphocytes % (Manual) Seg Neutrophils # Seg Neutrophils # Man Lymphocytes # (Manual) D-Dimer ABG pH 7.494 H POC ABG pCO2 POC ABG pO2 ABG pO2 73.4 L ABG O2 Saturation ABG Base Excess ABG Oxyhemoglobin ABG HCO3 ABG Hemoglobin Oxyhemoglobin 94.4 L Sodium Potassium Chloride Carbon Dioxide BUN Creatinine Glucose POC Glucose 207 H 170 H Lactic Acid Calcium Ferritin AST Magnesium Lactate Dehydrogenase C-Reactive Protein Total Protein Albumin Fqjxz-5-Uqtvncufn Ketll-4-Iezbbzqce PEP Interpretation Triglycerides TSH [place] Screen Complement C4 Coronavirus (PCR) 01/17/20 01/17/20 01/17/20 06:00 06:00 11:32 WBC 11.5 H RBC Hgb Hct MCV 75 L MCH 25 L RDW 15.5 H Plt Count Lymph % (Auto) [place] % (Auto) [place] # [place] # (Auto) Seg Neutrophils % Seg Neuts % (Manual) 81.0 H Lymphocytes % (Manual) 10.0 L Seg Neutrophils # Seg Neutrophils # Man 9.3 H Lymphocytes # (Manual) D-Dimer ABG pH POC ABG pCO2 POC ABG pO2 ABG pO2 ABG O2 Saturation ABG Base Excess ABG Oxyhemoglobin ABG HCO3 ABG Hemoglobin Oxyhemoglobin Sodium 151 H Potassium Chloride 113.6 H Carbon Dioxide BUN 40 H Creatinine Glucose 149 H POC Glucose 229 H Lactic Acid Calcium Ferritin AST Magnesium Lactate Dehydrogenase C-Reactive Protein Total Protein Albumin Rmewg-2-Rjxgfgyhp Bwdcv-2-Actbqhugg PEP Interpretation Triglycerides TSH [place] Screen Complement C4 Coronavirus (PCR) 01/17/20 01/17/20 01/17/20 13:40 13:40 13:40 WBC RBC Hgb Hct MCV MCH RDW Plt Count Lymph % (Auto) [place] % (Auto) [place] # [place] # (Auto) Seg Neutrophils % Seg Neuts % (Manual) Lymphocytes % (Manual) Seg Neutrophils # Seg Neutrophils # Man Lymphocytes # (Manual) D-Dimer 1878.79 H ABG pH POC ABG pCO2 POC ABG pO2 ABG pO2 ABG O2 Saturation ABG Base Excess ABG Oxyhemoglobin ABG HCO3 ABG Hemoglobin Oxyhemoglobin Sodium Potassium Chloride Carbon Dioxide BUN Creatinine Glucose POC Glucose Lactic Acid Calcium Ferritin 322.8 H AST Magnesium Lactate Dehydrogenase 587 H C-Reactive Protein 4.60 H Total Protein Albumin Evmai-4-Wcpknmqaz Jjinb-3-Ixsoobbcz PEP Interpretation Triglycerides TSH [place] Screen Complement C4 Coronavirus (PCR) 01/17/20 01/17/20 01/17/20 17:45 21:30 23:53 WBC RBC Hgb Hct MCV MCH RDW Plt Count Lymph % (Auto) [place] % (Auto) [place] # [place] # (Auto) Seg Neutrophils % Seg Neuts % (Manual) Lymphocytes % (Manual) Seg Neutrophils # Seg Neutrophils # Man Lymphocytes # (Manual) D-Dimer ABG pH POC ABG pCO2 POC ABG pO2 ABG pO2 179.6 H ABG O2 Saturation 99.2 H ABG Base Excess ABG Oxyhemoglobin ABG HCO3 ABG Hemoglobin 11.8 L Oxyhemoglobin Sodium Potassium Chloride Carbon Dioxide BUN Creatinine Glucose POC Glucose 364 H 272 H Lactic Acid Calcium Ferritin AST Magnesium Lactate Dehydrogenase C-Reactive Protein Total Protein Albumin Xijvh-9-Xjbhrcymk Ppjko-9-Jwvfiucjv PEP Interpretation Triglycerides TSH [place] Screen Complement C4 Coronavirus (PCR) 01/18/20 01/18/20 01/18/20 03:40 04:00 05:00 WBC RBC Hgb Hct MCV MCH RDW Plt Count Lymph % (Auto) [place] % (Auto) [place] # [place] # (Auto) Seg Neutrophils % Seg Neuts % (Manual) Lymphocytes % (Manual) Seg Neutrophils # Seg Neutrophils # Man Lymphocytes # (Manual) D-Dimer ABG pH POC ABG pCO2 POC ABG pO2 ABG pO2 162.6 H ABG O2 Saturation ABG Base Excess ABG Oxyhemoglobin ABG HCO3 ABG Hemoglobin Oxyhemoglobin Sodium 150 H Potassium Chloride 113.4 H Carbon Dioxide BUN 44 H Creatinine Glucose 268 H POC Glucose Lactic Acid Calcium Ferritin AST Magnesium Lactate Dehydrogenase C-Reactive Protein Total Protein Albumin Zldel-3-Ogcgnxozk Yxajn-4-Pkoebnugj PEP Interpretation Triglycerides 198 H TSH [place] Screen Complement C4 Coronavirus (PCR) 01/18/20 01/18/20 01/18/20 05:54 11:21 17:27 WBC RBC Hgb Hct MCV MCH RDW Plt Count Lymph % (Auto) [place] % (Auto) [place] # [place] # (Auto) Seg Neutrophils % Seg Neuts % (Manual) Lymphocytes % (Manual) Seg Neutrophils # Seg Neutrophils # Man Lymphocytes # (Manual) D-Dimer ABG pH POC ABG pCO2 POC ABG pO2 ABG pO2 ABG O2 Saturation ABG Base Excess ABG Oxyhemoglobin ABG HCO3 ABG Hemoglobin Oxyhemoglobin Sodium Potassium Chloride Carbon Dioxide BUN Creatinine Glucose POC Glucose 271 H 244 H 232 H Lactic Acid Calcium Ferritin AST Magnesium Lactate Dehydrogenase C-Reactive Protein Total Protein Albumin Zmbmw-5-Uclgfswpp Psdju-7-Kljssldur PEP Interpretation Triglycerides TSH [place] Screen Complement C4 Coronavirus (PCR) 01/19/20 01/19/20 01/19/20 00:12 04:00 04:40 WBC RBC Hgb Hct MCV MCH RDW Plt Count Lymph % (Auto) [place] % (Auto) [place] # [place] # (Auto) Seg Neutrophils % Seg Neuts % (Manual) Lymphocytes % (Manual) Seg Neutrophils # Seg Neutrophils # Man Lymphocytes # (Manual) D-Dimer ABG pH POC ABG pCO2 POC ABG pO2 ABG pO2 117.2 H ABG O2 Saturation ABG Base Excess ABG Oxyhemoglobin ABG HCO3 ABG Hemoglobin 9.7 L Oxyhemoglobin Sodium 146 H Potassium Chloride 111.3 H Carbon Dioxide BUN 38 H Creatinine Glucose 168 H POC Glucose 143 H Lactic Acid Calcium Ferritin AST Magnesium Lactate Dehydrogenase C-Reactive Protein Total Protein Albumin Tpakp-6-Affeeqaln Jqxvf-0-Fwozjqnpo PEP Interpretation Triglycerides TSH [place] Screen Complement C4 Coronavirus (PCR) 01/19/20 01/19/20 01/19/20 05:41 12:02 18:13 WBC RBC Hgb Hct MCV MCH RDW Plt Count Lymph % (Auto) [place] % (Auto) [place] # [place] # (Auto) Seg Neutrophils % Seg Neuts % (Manual) Lymphocytes % (Manual) Seg Neutrophils # Seg Neutrophils # Man Lymphocytes # (Manual) D-Dimer ABG pH POC ABG pCO2 POC ABG pO2 ABG pO2 ABG O2 Saturation ABG Base Excess ABG Oxyhemoglobin ABG HCO3 ABG Hemoglobin Oxyhemoglobin Sodium Potassium Chloride Carbon Dioxide BUN Creatinine Glucose POC Glucose 171 H 208 H 272 H Lactic Acid Calcium Ferritin AST Magnesium Lactate Dehydrogenase C-Reactive Protein Total Protein Albumin [id number] PEP Interpretation Triglycerides TSH [place] Screen Complement C4 Coronavirus (PCR) 01/20/20 01/20/20 01/20/20 00:13 04:21 05:30 WBC RBC Hgb Hct MCV MCH RDW Plt Count Lymph % (Auto) [place] % (Auto) [place] # [place] # (Auto) Seg Neutrophils % Seg Neuts % (Manual) Lymphocytes % (Manual) Seg Neutrophils # Seg Neutrophils # Man Lymphocytes # (Manual) D-Dimer ABG pH POC ABG pCO2 POC ABG pO2 ABG pO2 ABG O2 Saturation ABG Base Excess ABG Oxyhemoglobin ABG HCO3 26.8 H ABG Hemoglobin 10.7 L Oxyhemoglobin 94.3 L Sodium Potassium Chloride Carbon Dioxide BUN Creatinine Glucose POC Glucose 223 H 129 H Lactic Acid Calcium Ferritin AST Magnesium Lactate Dehydrogenase C-Reactive Protein Total Protein Albumin Bldqf-3-Bafzquzyp Ukurm-7-Fvmmmfgan PEP Interpretation Triglycerides TSH CHICA Screen Complement C4 Coronavirus (PCR) 01/20/20 01/20/20 01/20/20 11:14 11:14 11:14 WBC RBC Hgb Hct MCV MCH RDW Plt Count Lymph % (Auto) [place] % (Auto) [place] # [place] # (Auto) Seg Neutrophils % Seg Neuts % (Manual) Lymphocytes % (Manual) Seg Neutrophils # Seg Neutrophils # Man Lymphocytes # (Manual) D-Dimer 1221.96 H ABG pH POC ABG pCO2 POC ABG pO2 ABG pO2 ABG O2 Saturation ABG Base Excess ABG Oxyhemoglobin ABG HCO3 ABG Hemoglobin Oxyhemoglobin Sodium Potassium Chloride Carbon Dioxide BUN Creatinine Glucose POC Glucose Lactic Acid Calcium Ferritin 364.6 H AST Magnesium Lactate Dehydrogenase 403 H C-Reactive Protein 5.10 H Total Protein Albumin Eydhg-2-Eznctrlbm Jmixj-9-Dnyqlwjys PEP Interpretation Triglycerides TSH CHICA Screen Complement C4 Coronavirus (PCR) 01/20/20 01/20/20 01/20/20 12:01 18:10 23:07 WBC RBC Hgb Hct MCV MCH RDW Plt Count Lymph % (Auto) [place] % (Auto) [place] # [place] # (Auto) Seg Neutrophils % Seg Neuts % (Manual) Lymphocytes % (Manual) Seg Neutrophils # Seg Neutrophils # Man Lymphocytes # (Manual) D-Dimer ABG pH POC ABG pCO2 POC ABG pO2 ABG pO2 ABG O2 Saturation ABG Base Excess ABG Oxyhemoglobin ABG HCO3 ABG Hemoglobin Oxyhemoglobin Sodium Potassium Chloride Carbon Dioxide BUN Creatinine Glucose POC Glucose 260 H 317 H 237 H Lactic Acid Calcium Ferritin AST Magnesium Lactate Dehydrogenase C-Reactive Protein Total Protein Albumin Qvyyx-7-Kfphvalhn Xqaaz-0-Gxnipbyas PEP Interpretation Triglycerides TSH CHICA Screen Complement C4 Coronavirus (PCR) 01/21/20 01/21/20 01/21/20 05:25 05:25 05:42 WBC 11.3 H RBC Hgb 9.1 L Hct 28.9 L MCV 77 L MCH 24 L RDW Plt Count Lymph % (Auto) [place] % (Auto) [place] # [place] # (Auto) Seg Neutrophils % Seg Neuts % (Manual) Lymphocytes % (Manual) Seg Neutrophils # Seg Neutrophils # Man Lymphocytes # (Manual) D-Dimer ABG pH POC ABG pCO2 POC ABG pO2 ABG pO2 ABG O2 Saturation ABG Base Excess ABG Oxyhemoglobin ABG HCO3 ABG Hemoglobin Oxyhemoglobin Sodium 147 H Potassium Chloride 111.0 H Carbon Dioxide 31 H D BUN 20 H Creatinine Glucose 103 H POC Glucose 110 H Lactic Acid Calcium 8.2 L Ferritin AST Magnesium Lactate Dehydrogenase C-Reactive Protein Total Protein Albumin Fgpcz-0-Vxqiewjyb Idxhc-5-Jrecsoguc PEP Interpretation Triglycerides TSH [place]ICA Screen Complement C4 Coronavirus (PCR) 01/21/20 01/21/20 01/21/20 11:49 18:41 21:53 WBC RBC Hgb Hct MCV MCH RDW Plt Count Lymph % (Auto) [place] % (Auto) [place] # [place] # (Auto) Seg Neutrophils % Seg Neuts % (Manual) Lymphocytes % (Manual) Seg Neutrophils # Seg Neutrophils # Man Lymphocytes # (Manual) D-Dimer ABG pH POC ABG pCO2 POC ABG pO2 ABG pO2 ABG O2 Saturation ABG Base Excess ABG Oxyhemoglobin ABG HCO3 ABG Hemoglobin Oxyhemoglobin Sodium Potassium Chloride Carbon Dioxide BUN Creatinine Glucose POC Glucose 147 H 290 H 255 H Lactic Acid Calcium Ferritin AST Magnesium Lactate Dehydrogenase C-Reactive Protein Total Protein Albumin Dorpl-9-Qhewxphcy Znjqs-5-Qeafjjxvb PEP Interpretation Triglycerides TSH CHICA Screen Complement C4 Coronavirus (PCR) 01/22/20 01/22/20 01/22/20 03:35 04:42 05:23 WBC RBC Hgb Hct MCV MCH RDW Plt Count Lymph % (Auto) [place] % (Auto) [place] # [place] # (Auto) Seg Neutrophils % Seg Neuts % (Manual) Lymphocytes % (Manual) Seg Neutrophils # Seg Neutrophils # Man Lymphocytes # (Manual) D-Dimer ABG pH 7.46 H POC ABG pCO2 POC ABG pO2 ABG pO2 ABG O2 Saturation ABG Base Excess ABG Oxyhemoglobin ABG HCO3 ABG Hemoglobin 10.4 L Oxyhemoglobin Sodium 148 H Potassium 3.5 L Chloride 108.1 H Carbon Dioxide BUN 19 H Creatinine Glucose 159 H POC Glucose 173 H Lactic Acid Calcium 8.1 L Ferritin AST Magnesium Lactate Dehydrogenase C-Reactive Protein Total Protein Albumin Fijrf-0-Bvudzeust Gyvos-6-Llnuoiajt PEP Interpretation Triglycerides TSH CHICA Screen Complement C4 Coronavirus (PCR) 01/22/20 01/22/20 01/22/20 12:41 17:46 23:06 WBC RBC Hgb Hct MCV MCH RDW Plt Count Lymph % (Auto) [place] % (Auto) [place] # [place] # (Auto) Seg Neutrophils % Seg Neuts % (Manual) Lymphocytes % (Manual) Seg Neutrophils # Seg Neutrophils # Man Lymphocytes # (Manual) D-Dimer ABG pH POC ABG pCO2 POC ABG pO2 ABG pO2 ABG O2 Saturation ABG Base Excess ABG Oxyhemoglobin ABG HCO3 ABG Hemoglobin Oxyhemoglobin Sodium Potassium Chloride Carbon Dioxide BUN Creatinine Glucose POC Glucose 284 H 245 H 245 H Lactic Acid Calcium Ferritin AST Magnesium Lactate Dehydrogenase C-Reactive Protein Total Protein Albumin Nziqf-7-Hyetlvgvn Fdnyn-4-Ginvtcyvj PEP Interpretation Triglycerides TSH CHICA Screen Complement C4 Coronavirus (PCR) 01/23/20 01/23/20 01/23/20 05:50 06:10 06:10 WBC RBC Hgb Hct MCV MCH RDW Plt Count Lymph % (Auto) [place] % (Auto) [place] # [place] # (Auto) Seg Neutrophils % Seg Neuts % (Manual) Lymphocytes % (Manual) Seg Neutrophils # Seg Neutrophils # Man Lymphocytes # (Manual) D-Dimer 451.53 H ABG pH POC ABG pCO2 POC ABG pO2 ABG pO2 ABG O2 Saturation ABG Base Excess ABG Oxyhemoglobin ABG HCO3 ABG Hemoglobin Oxyhemoglobin Sodium Potassium Chloride 110.3 H Carbon Dioxide BUN 19 H Creatinine 0.5 L Glucose 178 H POC Glucose 184 H Lactic Acid Calcium 7.6 L Ferritin AST Magnesium Lactate Dehydrogenase C-Reactive Protein 3.30 H Total Protein Albumin Mpvas-8-Bjhatunev Ogvwd-0-Gjfmntzkk PEP Interpretation Triglycerides TSH CHICA Screen Complement C4 Coronavirus (PCR) 01/23/20 01/23/20 01/23/20 12:29 17:57 22:15 WBC 12.8 H RBC Hgb 9.7 L Hct MCV 77 L MCH 25 L RDW Plt Count Lymph % (Auto) [place] % (Auto) 9.1 H [place] # [place] # (Auto) 1.2 H Seg Neutrophils % Seg Neuts % (Manual) Lymphocytes % (Manual) Seg Neutrophils # 8.6 H Seg Neutrophils # Man Lymphocytes # (Manual) D-Dimer ABG pH POC ABG pCO2 POC ABG pO2 ABG pO2 ABG O2 Saturation ABG Base Excess ABG Oxyhemoglobin ABG HCO3 ABG Hemoglobin Oxyhemoglobin Sodium Potassium Chloride Carbon Dioxide BUN Creatinine Glucose POC Glucose 258 H 248 H Lactic Acid Calcium Ferritin AST Magnesium Lactate Dehydrogenase C-Reactive Protein Total Protein Albumin Penso-2-Safdoqsib Eudkn-3-Dgozypbqi PEP Interpretation Triglycerides TSH CHICA Screen Complement C4 Coronavirus (PCR) 01/23/20 01/24/20 01/24/20 23:28 06:00 06:00 WBC 12.4 H RBC Hgb 9.3 L Hct 28.6 L MCV 77 L MCH 25 L RDW Plt Count Lymph % (Auto) [place] % (Auto) 8.7 H [place] # [place] # (Auto) 1.1 H Seg Neutrophils % 71.2 H Seg Neuts % (Manual) Lymphocytes % (Manual) Seg Neutrophils # 8.8 H Seg Neutrophils # Man Lymphocytes # (Manual) D-Dimer ABG pH POC ABG pCO2 POC ABG pO2 ABG pO2 ABG O2 Saturation ABG Base Excess ABG Oxyhemoglobin ABG HCO3 ABG Hemoglobin Oxyhemoglobin Sodium Potassium 3.4 L Chloride 107.3 H Carbon Dioxide BUN Creatinine Glucose POC Glucose 200 H Lactic Acid Calcium Ferritin AST Magnesium Lactate Dehydrogenase C-Reactive Protein Total Protein Albumin Grynu-0-Ugnrzatep Oayec-0-Xhilrdtes PEP Interpretation Triglycerides TSH CHICA Screen Complement C4 Coronavirus (PCR) Allied health notes reviewed: RT
--- NOTE | 2020-01-24 11:46 | Progress Note ---
Assessment and Plan Cultures: Blood culture 01/11/2020 no growth today Urine culture 01/11/2020 10-100,000 normal skin cristina Tracheal aspirate a 01/13/2020 no growth 01/22/2020 Blood culture: no growth A/P: 39-year-old female past medical history morbid obesity, diabetes admitted with severe COVID-19 pneumonia. #Sepsis: secondary to COVID-19 pneumonia. New fever being worked up. No clear source found yet. #Acute hypoxemic respiratory failure: Likely secondary to COVID-19 infection. Extubated 01/24/2020. #COVID-19 pneumonia: Very high d-dimer on admission. Completed ceftriaxone. Completed Remdesivir. Markers are slowly improving. D-dimer improving. Completed steroids. #Morbid obesity: BMI=52. Associated with worse COVID-19 outcomes #Transaminitis: Likely related to COVID-19. Improving. #ARACELI: Resolved #Bradycardia: Resolved. Recs: -Completed steroids -fevers better, continue IV Cefepime + Vancomycin for now, if patient remains afebrile, will d/c abx after 5 days are complete -anticoagulation per protocol based on d-dimer Lynn Song MD, FACP [facility] ([facility] C: [phone] O: [phone] F: [phone] Subjective Date of service: 01/24/20 Principal diagnosis: Ac. hypoxemic resp failure; COVID infection; PNA; ARACELI; Thro mbocytopenia Interval history: Afebrile. Extubated. Currently on BiPAP. Objective - Exam Narrative Exam: Physical Exam (reviewed in chart due to PPE conservation and minimize risk of transmission) Constitutional: limited due to PPE conservation strategy Head, Ears, Nose: limited due to PPE conservation strategy Eyes: limited due to PPE conservation strategy Neck: limited due to PPE conservation strategy Oral: limited due to PPE conservation strategy Cardiovascular: limited due to PPE conservation strategy Respiratory: limited due to PPE conservation strategy GI: limited due to PPE conservation strategy Musculoskeletal: limited due to PPE conservation strategy Skin: limited due to PPE conservation strategy Hem/Lymphatic: limited due to PPE conservation strategy Psych: limited due to PPE conservation strategy Neurological: limited due to PPE conservation strategy - Constitutional Vitals: Vital Signs Temp Pulse Resp BP Pulse Ox 98.9 F 124 H 23 160/88 98 01/24/20 04:00 01/24/20 10:12 01/24/20 08:30 01/24/20 10:12 01/24/20 10:30 Temperature -Last 24 Hours Temperature 98.9 F Temperature 98.9 F Temperature 98.6 F Temperature 98.6 F Temperature 99.8 F - Labs CBC & Chem 7: 01/24/20 06:00 01/24/20 06:00 Labs: Abnormal lab results 01/23/20 01/23/20 01/23/20 Range/Units 06:10 12:29 17:57 WBC (4.5-11.0) K/mm3 Hgb (10.1-14.3) gm/dl Hct (30.3-42.9) % MCV (79-97) fl MCH (28-32) pg [place] % (Auto) (0.0-7.3) % [place] # (Auto) (0.0-0.8) K/mm3 Seg Neutrophils % (40.0-70.0) % Seg Neutrophils # (1.8-7.7) K/mm3 Potassium (3.6-5.0) mmol/L Chloride 110.3 H (98-107) mmol/L BUN 19 H (7-17) mg/dL Creatinine 0.5 L (0.6-1.2) mg/dL Glucose 178 H (65-100) mg/dL POC Glucose 258 H 248 H (70-105) Calcium 7.6 L (8.4-10.2) mg/dL C-Reactive Protein 3.30 H (0.00-1.30) mg/dL 01/23/20 01/23/20 01/24/20 Range/Units 22:15 23:28 06:00 WBC 12.8 H (4.5-11.0) K/mm3 Hgb 9.7 L (10.1-14.3) gm/dl Hct (30.3-42.9) % MCV 77 L (79-97) fl MCH 25 L (28-32) pg [place] % (Auto) 9.1 H (0.0-7.3) % [place] # (Auto) 1.2 H (0.0-0.8) K/mm3 Seg Neutrophils % (40.0-70.0) % Seg Neutrophils # 8.6 H (1.8-7.7) K/mm3 Potassium 3.4 L (3.6-5.0) mmol/L Chloride 107.3 H (98-107) mmol/L BUN (7-17) mg/dL Creatinine (0.6-1.2) mg/dL Glucose (65-100) mg/dL POC Glucose 200 H (70-105) Calcium (8.4-10.2) mg/dL C-Reactive Protein (0.00-1.30) mg/dL 01/24/20 Range/Units 06:00 WBC 12.4 H (4.5-11.0) K/mm3 Hgb 9.3 L (10.1-14.3) gm/dl Hct 28.6 L (30.3-42.9) % MCV 77 L (79-97) fl MCH 25 L (28-32) pg [place] % (Auto) 8.7 H (0.0-7.3) % [place] # (Auto) 1.1 H (0.0-0.8) K/mm3 Seg Neutrophils % 71.2 H (40.0-70.0) % Seg Neutrophils # 8.8 H (1.8-7.7) K/mm3 Potassium (3.6-5.0) mmol/L Chloride (98-107) mmol/L BUN (7-17) mg/dL Creatinine (0.6-1.2) mg/dL Glucose (65-100) mg/dL POC Glucose (70-105) Calcium (8.4-10.2) mg/dL C-Reactive Protein (0.00-1.30) mg/dL
--- NOTE | 2020-01-24 11:53 | Progress Note ---
Assessment and Plan Sinus bradycardia, resolved. Now with intermittent physiologic sinus tachycardia TSH 0.221 COVID -19 viral pneumonia Respiratory failure Diabetes No specific treatment indicated for physiologic sinus tachycardia. The presence of intermittent sinus tachycardia is a positive finding that shows that her previous bradycardia was not due to sinus node malfunction. Conservative cardiac management. Subjective Date of service: 01/24/20 Principal diagnosis: Ac. hypoxemic resp failure; COVID infection; PNA; ARACELI; Thrombocytopenia Interval history: Patient has been extubated. Sinus tachycardia on telemetry. Objective Vital Signs Temp Pulse Pulse Resp BP Pulse Ox 01/24/20 10:30 98 01/24/20 10:12 124 H 160/88 01/24/20 08:30 123 H 23 156/81 96 01/24/20 08:29 97 01/24/20 08:01 114 H 36 H 141/75 95 01/24/20 07:30 113 H 30 H 134/69 97 01/24/20 07:01 113 H 15 131/69 98 01/24/20 06:30 115 H 28 H 153/77 98 01/24/20 06:00 113 H 17 142/75 99 01/24/20 05:44 115 H 156/86 01/24/20 05:30 100 H 17 156/86 98 01/24/20 05:00 113 H 20 168/94 98 01/24/20 04:31 105 H 29 H 167/80 95 01/24/20 04:01 114 H 13 144/72 96 01/24/20 04:00 98.9 F 115 H 100 H 19 99 01/24/20 03:31 99 H 16 144/72 98 01/24/20 03:01 121 H 21 178/98 95 01/24/20 02:31 94 H 12 139/72 95 01/24/20 02:22 108 H 201/89 01/24/20 02:02 140 H 35 H 201/118 98 01/24/20 02:01 140 H 15 174/85 96 01/24/20 01:30 130 H 17 185/106 98 01/24/20 01:00 104 H 18 154/79 98 01/24/20 00:30 107 H 17 150/75 97 01/24/20 00:00 98.9 F 115 H 103 H 20 163/81 98 01/23/20 23:30 112 H 19 155/76 97 01/23/20 23:00 112 H 17 146/68 97 01/23/20 22:57 112 H 17 166/88 99 01/23/20 22:31 104 H 15 173/94 01/23/20 22:15 101 H 173/94 01/23/20 22:08 107 H 17 172/88 98 01/23/20 22:01 129 H 10 L 177/85 93 01/23/20 21:30 104 H 21 160/85 98 01/23/20 21:01 109 H 21 160/86 96 01/23/20 20:30 110 H 22 138/78 96 01/23/20 20:15 98 01/23/20 20:00 98.6 F 105 H 106 H 23 150/80 99 01/23/20 19:30 106 H 21 144/81 98 01/23/20 19:01 100 H 18 141/77 98 01/23/20 18:44 103 H 177/89 01/23/20 18:30 110 H 17 171/86 97 01/23/20 18:00 111 H 21 164/83 97 01/23/20 17:30 110 H 18 160/87 98 01/23/20 17:00 119 H 21 140/86 98 01/23/20 16:30 124 H 20 122/68 97 01/23/20 16:00 98.6 F 124 H 21 131/55 98 01/23/20 15:50 99 01/23/20 15:30 134 H 19 104/62 99 01/23/20 15:01 115 H 16 112/56 100 01/23/20 14:30 90 13 88/43 99 01/23/20 14:00 86 11 L 99/50 98 01/23/20 13:34 86 99/51 01/23/20 13:30 83 12 99/51 98 01/23/20 13:00 88 12 100/52 98 01/23/20 12:30 93 H 14 97/54 97 01/23/20 12:00 99.8 F H 109 H 14 112/64 98 - Physical Examination Narrative exam: Deferred due to isolation protocol. Cardiac: Positive: Tachycardia - Labs and Meds CBC 01/23/20 01/24/20 Range/Units 22:15 06:00 WBC 12.8 H 12.4 H (4.5-11.0) K/mm3 RBC 3.95 3.73 (3.65-5.03) M/mm3 Hgb 9.7 L 9.3 L (10.1-14.3) gm/dl Hct 30.5 28.6 L (30.3-42.9) % Plt Count 301 303 (140-440) K/mm3 Lymph # (Auto) 2.7 2.3 (1.2-5.4) K/mm3 [place] # (Auto) 1.2 H 1.1 H (0.0-0.8) K/mm3 Eos # (Auto) 0.2 0.2 (0.0-0.4) K/mm3 Baso # (Auto) 0.1 0.0 (0.0-0.1) K/mm3 Comprehensive Metabolic Panel 01/23/20 01/24/20 Range/Units 06:10 06:00 Sodium 143 145 (137-145) mmol/L Potassium 3.7 3.4 L (3.6-5.0) mmol/L Chloride 110.3 H 107.3 H (98-107) mmol/L Carbon Dioxide 23 25 (22-30) mmol/L BUN 19 H 15 (7-17) mg/dL Creatinine 0.5 L 0.7 (0.6-1.2) mg/dL Glucose 178 H 100 (65-100) mg/dL Calcium 7.6 L 8.7 (8.4-10.2) mg/dL - Allied health notes Allied health notes reviewed: nursing
[2020-01-24] MEDS: ACETAMINOPHEN 325 MG TAB PO PRN (14:36)
[2020-01-24] MEDS: QUEtiapine 200 MG TAB PO SCH ×2 (15:06→23:04)
--- NOTE | 2020-01-24 16:30 | Vascular Lab Report ---
VL venous duplex LE BILAT INDICATION / CLINICAL INFORMATION: R/O DVT. TECHNIQUE: Duplex doppler imaging was performed using venous compression and other maneuvers. COMPARISON: None available. FINDINGS: No venous thrombosis is identified within the visualized extremity vasculature. ADDITIONAL FINDINGS: None. IMPRESSION: 1. No sonographic evidence for DVT in the visualized bilateral lower extremity vasculature.. Signer Name: Dutch Sifuentes MD Signed: 01/24/2020 4:26 PM Workstation Name: [id number]
[2020-01-25] MEDS: VANCOMYCIN 1,750 MG in SODIUM CHLORIDE 0.9% 500 ML 500 ML IV SCH ×2 (05:00→15:00)
[2020-01-25] MEDS: INSULIN LISPRO 100 UNIT/ML VIAL 3 mL SUB-Q SCH ×3 (09:12→18:47)
[2020-01-25] MEDS: hydrALAZINE 25 MG TAB PO SCH ×3 (09:13→22:17)
[2020-01-25] MEDS: NYSTATIN 500,000 UNIT/5 ML ORAL LIQD PO SCH ×3 (09:13→14:46)
--- NOTE | 2020-01-25 09:15 | Progress Note ---
Assessment and Plan Subjective Date of service: 01/21/20 Principal diagnosis: Ac. hypoxemic resp failure; COVID infection; PNA; ARACELI; Thrombocytopenia Interval history: Assessment and plan Acute hypoxic respiratory failure. secondary to COVID-19 infection. Patient remains on mechanical ventilation. Pulmonary following. ABG results reviewed Patient is extubated COVID-19 pneumonia. Patient was initially diagnosed 8 days prior to admission. Inflammatory markers reviewed. ID following. Continue dexamethasone 6 mg IV for completion of 10 days (day 9 of 10). Treated with remdesivir for 4 days and stopped on 01/17/2020 per ID recommendation because of bradycardia. Continue to trend inflammatory markers. Continue full dose anticoagulation given the high d-dimer. Sepsis. Etiology secondary to above. Off antibiotics Morbid obesity. Counseling once patient is extubated Severe bradycardia : Resolved. cardiology consult note reviewed Likely secondary to Decadron/ ? remdesivir No further recommendations Elevated LFTs/transaminitis.-Improved Etiology likely secondary to sepsis/COVID-19 Acute kidney injury. Improved Etiology secondary to sepsis/ATN. Discussed with Dr. Sheikh. Nephrology signed off Hypernatremia Secondary to dehydration Resolved Serum sodium down to 146 Hyperkalemia. Resolved Etiology likely secondary to above. Hypertension Intermittently uncontrolled, most likely secondary to agitation/anxiety Will down regulate blood pressure medication Subjective Date of service: 01/24/20 Principal diagnosis: Ac. hypoxemic resp failure; COVID infection; PNA; ARACELI; Thrombocytopenia Interval history: History of present illness: 39 YO Female with MO, Obesity Hypoventilation Syndrome, DM, Asthma presents to ED for evaluation. Patient states that she has experienced shortness of breath over the past 3 days with worsening symptoms over the past 1 day. Patient also acknowledges nonproductive cough, malaise, weakness, fatigue, decreased exercise tolerance, subjective fever and body aches. Patient states that she tested positive for coronavirus 8 days ago and has experienced worsening symptoms over the past 3 days. EMS was notified and upon arrival the patient was found to be in distress. Patient placed on submental oxygen and transported to [facility] for further care and evaluation. Patient seen and evaluated in the emergency de partment. Lab and imaging studies reviewed. Patient found to have a pulse oximetry of 80% on room air which is consistent with acute hypoxemic respiratory failure as well as a fever with a temperature of 101.3 F. Patient underwent chest x-ray which revealed bilateral pneumonia which was complicated by sepsis. Patient admitted to medical floor and initiated on pneumonia protocol as well as COVID-19 protocol as well as sepsis protocol. Patient denies chills, chest pain, palpitations, productive cough, skin rash, recent ill contacts. Patient acknowledges positive coronavirus infection. No prior admission for review. All medication listed at time of admission has been reconciled. Coronavirus PCR has been ordered and is pending at time of admission. 01/16/2020; patient is still on mechanical ventilation FiO2 40, PEEP 14, patient is on fentanyl, Versed, propofol. Patient proned. We will continue to monitor. Patient is off IV antibiotics. Treated for 5 days with IV ceftriaxone. ID, nephrology and pulmonary consult appreciated 01/17/2020; patient is still on mechanical ventilation FiO2 40, PEEP 14, patient is on fentanyl, Versed, propofol. Patient proned. We will continue to monitor. Patient is off IV antibiotics. Treated for 5 days with IV ceftriaxone. ID, nephrology and pulmonary consult appreciated. Patient has elevated sodium level and advised to increase free water intake through the NG tube feeding. 01/18/2020; patient is still on mechanical ventilation with FiO2 of 40 and PEEP of 14 patient is on fentanyl and Versed for sedation. Patient is on dexamethas one day 7 and probably severe was stopped yesterday after fourth dose per ID recommendation, patient is bradycardic. Cardiology was consulted and recommend to follow her closely. If heart rates below 40 we want to give her atropine. I discussed the management plan with her father Mr. Baxter in detail at [phone]. Mr. Baxter said his daughter was suffering from asthma and bipolar disorder. 01/19/20; patient is on mechanical ventilation FiO2 of 35 and PEEP of 8, patient is on fentanyl and Versed for sedation. Patient is on dexamethasone day 8. From the severe discontinued after she took for 4 days per ID recommendation due to bradycardia. Cardiology and nephrology consult appreciated. Discussed with her father in detail about the management plan on 01/18/2020. Continue with the same management. Vent management as per tester operator helper. 01/19 patient remains on vent, on FiO2 of 30% and PEEP of 8. She is on Diprivan and fentanyl. Per discussion with RN ,patient is anxious and intermittently agitated. Patient is awake and alert. Unable to perform review of systems secondary to patient being intubated. All interdisciplinary notes reviewed Lab results reviewed 01/20 no acute events overnight, groggy secondary to sedation, opens eyes to verbal stimulus, yesterday's events noted, BP now well controlled with heart rate also in the normal range. Will adjust blood pressure medication 01/22/20 no acute events overnight, opens eyes to verbal stimulus, yesterday's events noted, BP now well controlled with heart rate also in the normal range. Will adjust blood pressure medication 01/23/2020--patient being weaned so that he can be extubated 01/24/2020 patient extubated today Objective - Constitutional Vitals: Vital Signs - 12hr 01/24/20 01/24/20 01/24/20 21:31 22:00 22:31 Temperature Pulse Rate 119 H 105 H 114 H Pulse Rate [ From Monitor] Respiratory 21 28 H 31 H Rate Blood Pressure 172/92 167/92 167/92 O2 Sat by Pulse 98 97 99 Oximetry 01/24/20 01/24/20 01/24/20 23:01 23:31 23:35 Temperature 98.9 F Pulse Rate 135 H 108 H Pulse Rate [ From Monitor] Respiratory 31 H 20 Rate Blood Pressure 168/93 167/92 O2 Sat by Pulse 96 99 Oximetry 01/25/20 01/25/20 01/25/20 00:00 00:31 00:59 Temperature Pulse Rate 112 H 123 H 122 H Pulse Rate [ From Monitor] Respiratory 23 26 H 25 H Rate Blood Pressure 162/73 162/73 164/77 O2 Sat by Pulse 98 98 98 Oximetry 01/25/20 01/25/20 01/25/20 01:01 01:05 01:31 Temperature Pulse Rate 130 H 124 H Pulse Rate [ From Monitor] Respiratory 23 26 H Rate Blood Pressure 164/77 181/75 O2 Sat by Pulse 97 98 98 Oximetry 01/25/20 01/25/20 01/25/20 01:50 02:01 02:31 Temperature Pulse Rate 119 H 113 H 102 H Pulse Rate [ From Monitor] Respiratory 17 24 Rate Blood Pressure 181/75 162/97 162/97 O2 Sat by Pulse 97 100 Oximetry 01/25/20 01/25/20 01/25/20 03:00 03:25 03:31 Temperature 99.2 F Pulse Rate 105 H 105 H Pulse Rate [ From Monitor] Respiratory 21 22 Rate Blood Pressure 151/75 151/75 O2 Sat by Pulse 98 99 Oximetry 01/25/20 01/25/20 01/25/20 04:00 04:31 05:01 Temperature Pulse Rate 130 H 112 H 125 H Pulse Rate [ From Monitor] Respiratory 14 24 15 Rate Blood Pressure 167/109 151/75 169/106 O2 Sat by Pulse 98 98 96 Oximetry 01/25/20 01/25/20 01/25/20 05:31 05:34 06:01 Temperature Pulse Rate 107 H 111 H 107 H Pulse Rate [ From Monitor] Respiratory 17 20 23 Rate Blood Pressure 163/70 163/70 O2 Sat by Pulse 100 100 98 Oximetry 01/25/20 01/25/20 01/25/20 06:31 07:01 07:31 Temperature Pulse Rate 111 H 110 H 97 H Pulse Rate [ From Monitor] Respiratory 19 21 20 Rate Blood Pressure 163/70 196/88 152/86 O2 Sat by Pulse 100 100 99 Oximetry 01/25/20 01/25/20 01/25/20 08:00 08:29 08:31 Temperature Pulse Rate 111 H 105 H 107 H Pulse Rate [ 105 H From Monitor] Respiratory 20 23 14 Rate Blood Pressure 147/93 147/93 152/86 O2 Sat by Pulse 99 99 100 Oximetry General appearance: Present: mild distress, well-nourished - EENT Eyes: PERRL, EOM intact ENT: hearing intact, clear oral mucosa Ears: bilateral: normal - Neck Neck: supple, normal ROM - Respiratory Respiratory effort: normal Respiratory: bilateral: CTA - Breasts Breasts: normal - Cardiovascular Heart rate: 78 Rhythm: regular Heart Sounds: Present: S1 & S2. Absent: gallop, rub Extremities: pulses intact, No edema, normal color, Full ROM - Gastrointestinal General gastrointestinal: Present: soft, non-tender, non-distended, normal bowel sounds - Genitourinary Female genitourinary: normal - Integumentary Integumentary: clear, warm, dry - Musculoskeletal Musculoskeletal: 1, strength equal bilaterally - Neurologic Neurologic: moves all extremities - Psychiatric Psychiatric: memory intact, appropriate mood/affect, intact judgment & insight - Allied health notes Allied health notes reviewed: nursing, case management - Labs CBC & Chem 7: 01/24/20 06:00 01/24/20 06:00 Labs: Abnormal lab results 01/24/20 01/24/2020 Range/Units 10:02 12:31 17:59 POC Glucose 161 H 252 H 182 H (70-105) 01/25/20 01/25/20 Range/Units 00:21 05:43 POC Glucose 125 H 132 H (70-105)
--- NOTE | 2020-01-25 09:16 | Progress Note ---
Assessment and Plan Subjective Date of service: 01/21/20 Principal diagnosis: Ac. hypoxemic resp failure; COVID infection; PNA; ARACELI; Thrombocytopenia Interval history: Assessment and plan Acute hypoxic respiratory failure. secondary to COVID-19 infection. Patient remains on mechanical ventilation. Pulmonary following. ABG results reviewed Patient is on 30% FiO2 and PEEP of 8 Wean as tolerated COVID-19 pneumonia. Patient was initially diagnosed 8 days prior to admission. Inflammatory markers reviewed. ID following. Continue dexamethasone 6 mg IV for completion of 10 days (day 9 of 10). Treated with remdesivir for 4 days and stopped on 01/17/2020 per ID recommendation because of bradycardia. Continue to trend inflammatory markers. Continue full dose anticoagulation given the high d-dimer. Sepsis. Etiology secondary to above. Off antibiotics Morbid obesity. Counseling once patient is extubated Severe bradycardia : Resolved. cardiology consult note reviewed Likely secondary to Decadron/ ? remdesivir No further recommendations Elevated LFTs/transaminitis.-Improved Etiology likely secondary to sepsis/COVID-19 Acute kidney injury. Improved Etiology secondary to sepsis/ATN. Discussed with Dr. Sheikh. Nephrology signed off Hypernatremia Secondary to dehydration Resolved Serum sodium down to 146 Hyperkalemia. Resolved Etiology likely secondary to above. Hypertension Intermittently uncontrolled, most likely secondary to agitation/anxiety Will down regulate blood pressure medication History of present illness: 39 YO Female with MO, Obesity Hypoventilation Syndrome, DM, Asthma presents to ED for evaluation. Patient states that she has experienced shortness of breath over the past 3 days with worsening symptoms over the past 1 day. Patient also acknowledges nonproductive cough, malaise, weakness, fatigue, decreased exercise tolerance, subjective fever and body aches. Patient states that she tested positive for coronavirus 8 days ago and has experienced worsening symptoms over the past 3 days. EMS was notified and upon arrival the patient was found to be in distress. Patient placed on submental oxygen and transported to [facility] for further care and evaluation. Patient seen and evaluated in the emergency department. Lab and imaging studies reviewed. Patient found to have a pulse oximetry of 80% on room air which is consistent with acute hypoxemic respiratory failure as well as a fever with a temperature of 101.3 F. Patient underwent chest x-ray which revealed bilateral pneumonia which was complicated by sepsis. Patient admitted to medical floor and initiated on pneumonia protocol as well as COVID-19 protocol as well as sepsis protocol. Patient denies chills, chest pain, palpitations, productive cough, skin rash, recent ill contacts. Patient acknowledges positive coronavirus infection. No prior admission for review. All medication listed at time of admission has been reconciled. Coronavirus PCR has been ordered and is pending at time of admission. 01/16/2020; patient is still on mechanical ventilation FiO2 40, PEEP 14, patient is on fentanyl, Versed, propofol. Patient proned. We will continue to monitor. Patient is off IV antibiotics. Treated for 5 days with IV ceftriaxone. ID, n ephrology and pulmonary consult appreciated 01/17/2020; patient is still on mechanical ventilation FiO2 40, PEEP 14, patient is on fentanyl, Versed, propofol. Patient proned. We will continue to monitor. Patient is off IV antibiotics. Treated for 5 days with IV ceftriaxone. ID, nephrology and pulmonary consult appreciated. Patient has elevated sodium level and advised to increase free water intake through the NG tube feeding. 01/18/2020; patient is still on mechanical ventilation with FiO2 of 40 and PEEP of 14 patient is on fentanyl and Versed for sedation. Patient is on dexamethasone day 7 and probably severe was stopped yesterday after fourth dose per ID recommendation, patient is bradycardic. Cardiology was consulted and recommend to follow her closely. If heart rates below 40 we want to give her atropine. I discussed the management plan with her father Mr. Baxter in detail at [phone]. Mr. Baxter said his daughter was suffering from asthma and bipolar disorder. 01/19/20; patient is on mechanical ventilation FiO2 of 35 and PEEP of 8, patient is on fentanyl and Versed for sedation. Patient is on dexamethasone day 8. From the severe discontinued after she took for 4 days per ID recommendation due to bradycardia. Cardiology and nephrology consult appreciated. Discussed with her father in detail about the management plan on 01/18/2020. Continue with the same management. Vent management as per clinical editor. 01/19 patient remains on vent, on FiO2 of 30% and PEEP of 8. She is on Diprivan and fentanyl. Per discussion with RN ,patient is anxious and intermittently agitated. Patient is awake and alert. Unable to perform review of systems secondary to patient being intubated. All interdisciplinary notes reviewed Lab results reviewed 01/20 no acute events overnight, groggy secondary to sedation, opens eyes to verbal stimulus, yesterday's events noted, BP now well controlled with heart rate also in the normal range. Will adjust blood pressure medication Subjective Date of service: 01/25/20 Principal diagnosis: Ac. hypoxemic resp failure; COVID infection; PNA; ARACELI; Thrombocytopenia Interval history: History of present illness: 39 YO Female with MO, Obesity Hypoventilation Syndrome, DM, Asthma presents to ED for evaluation. Patient states that she has experienced shortness of breath over the past 3 days with worsening symptoms over the past 1 day. Patient also acknowledges nonproductive cough, malaise, weakness, fatigue, decreased exercise tolerance, subjective fever and body aches. Patient states that she tested positive for coronavirus 8 days ago and has experienced worsening symptoms over the past 3 days. EMS was notified and upon arrival the patient was found to be in distress. Patient placed on submental oxygen and transported to [facility] for further care and evaluation. Patient seen and evaluated in the emergency dep artment. Lab and imaging studies reviewed. Patient found to have a pulse oximetry of 80% on room air which is consistent with acute hypoxemic respiratory failure as well as a fever with a temperature of 101.3 F. Patient underwent chest x-ray which revealed bilateral pneumonia which was complicated by sepsis. Patient admitted to medical floor and initiated on pneumonia protocol as well as COVID-19 protocol as well as sepsis protocol. Patient denies chills, chest pain, palpitations, productive cough, skin rash, recent ill contacts. Patient acknowledges positive coronavirus infection. No prior admission for review. All medication listed at time of admission has been reconciled. Coronavirus PCR has been ordered and is pending at time of admission. 01/16/2020; patient is still on mechanical ventilation FiO2 40, PEEP 14, patient is on fentanyl, Versed, propofol. Patient proned. We will continue to monitor. Patient is off IV antibiotics. Treated for 5 days with IV ceftriaxone. ID, nephrology and pulmonary consult appreciated 01/17/2020; patient is still on mechanical ventilation FiO2 40, PEEP 14, patient is on fentanyl, Versed, propofol. Patient proned. We will continue to monitor. Patient is off IV antibiotics. Treated for 5 days with IV ceftriaxone. ID, nephrology and pulmonary consult appreciated. Patient has elevated sodium level and advised to increase free water intake through the NG tube feeding. 01/18/2020; patient is still on mechanical ventilation with FiO2 of 40 and PEEP of 14 patient is on fentanyl and Versed for sedation. Patient is on dexamethaso ne day 7 and probably severe was stopped yesterday after fourth dose per ID recommendation, patient is bradycardic. Cardiology was consulted and recommend to follow her closely. If heart rates below 40 we want to give her atropine. I discussed the management plan with her father Mr. Baxter in detail at [phone]. Mr. Baxter said his daughter was suffering from asthma and bipolar disorder. 01/19/20; patient is on mechanical ventilation FiO2 of 35 and PEEP of 8, patient is on fentanyl and Versed for sedation. Patient is on dexamethasone day 8. From the severe discontinued after she took for 4 days per ID recommendation due to bradycardia. Cardiology and nephrology consult appreciated. Discussed with her father in detail about the management plan on 01/18/2020. Continue with the same management. Vent management as per clinical editor. 01/19 patient remains on vent, on FiO2 of 30% and PEEP of 8. She is on Diprivan and fentanyl. Per discussion with RN ,patient is anxious and intermittently agitated. Patient is awake and alert. Unable to perform review of systems secondary to patient being intubated. All interdisciplinary notes reviewed Lab results reviewed 01/20 no acute events overnight, groggy secondary to sedation, opens eyes to verbal stimulus, yesterday's events noted, BP now well controlled with heart rate also in the normal range. Will adjust blood pressure medication 01/22/20 no acute events overnight, opens eyes to verbal stimulus, yesterday's events noted, BP now well controlled with heart rate also in the normal range. Will adjust blood pressure medication 01/23/2020--patient being weaned so that he can be extubated 01/24/2020 patient extubated today 01/25/2020 patient on BiPAP Objective - Constitutional Vitals: Vital Signs - 12hr 01/24/20 01/24/20 01/24/20 21:31 22:00 22:31 Temperature Pulse Rate 119 H 105 H 114 H Pulse Rate [ From Monitor] Respiratory 21 28 H 31 H Rate Blood Pressure 172/92 167/92 167/92 O2 Sat by Pulse 98 97 99 Oximetry 01/24/20 01/24/20 01/24/20 23:01 23:31 23:35 Temperature 98.9 F Pulse Rate 135 H 108 H Pulse Rate [ From Monitor] Respiratory 31 H 20 Rate Blood Pressure 168/93 167/92 O2 Sat by Pulse 96 99 Oximetry 01/25/20 01/25/20 01/25/20 00:00 00:31 00:59 Temperature Pulse Rate 112 H 123 H 122 H Pulse Rate [ From Monitor] Respiratory 23 26 H 25 H Rate Blood Pressure 162/73 162/73 164/77 O2 Sat by Pulse 98 98 98 Oximetry 01/25/20 01/25/20 01/25/20 01:01 01:05 01:31 Temperature Pulse Rate 130 H 124 H Pulse Rate [ From Monitor] Respiratory 23 26 H Rate Blood Pressure 164/77 181/75 O2 Sat by Pulse 97 98 98 Oximetry 01/25/20 01/25/20 01/25/20 01:50 02:01 02:31 Temperature Pulse Rate 119 H 113 H 102 H Pulse Rate [ From Monitor] Respiratory 17 24 Rate Blood Pressure 181/75 162/97 162/97 O2 Sat by Pulse 97 100 Oximetry 01/25/20 01/25/20 01/25/20 03:00 03:25 03:31 Temperature 99.2 F Pulse Rate 105 H 105 H Pulse Rate [ From Monitor] Respiratory 21 22 Rate Blood Pressure 151/75 151/75 O2 Sat by Pulse 98 99 Oximetry 01/25/20 01/25/20 01/25/20 04:00 04:31 05:01 Temperature Pulse Rate 130 H 112 H 125 H Pulse Rate [ From Monitor] Respiratory 14 24 15 Rate Blood Pressure 167/109 151/75 169/106 O2 Sat by Pulse 98 98 96 Oximetry 01/25/20 01/25/20 01/25/20 05:31 05:34 06:01 Temperature Pulse Rate 107 H 111 H 107 H Pulse Rate [ From Monitor] Respiratory 17 20 23 Rate Blood Pressure 163/70 163/70 O2 Sat by Pulse 100 100 98 Oximetry 01/25/20 01/25/20 01/25/20 06:31 07:01 07:31 Temperature Pulse Rate 111 H 110 H 97 H Pulse Rate [ From Monitor] Respiratory 19 21 20 Rate Blood Pressure 163/70 196/88 152/86 O2 Sat by Pulse 100 100 99 Oximetry 01/25/20 01/25/20 01/25/20 08:00 08:29 08:31 Temperature Pulse Rate 111 H 105 H 107 H Pulse Rate [ 105 H From Monitor] Respiratory 20 23 14 Rate Blood Pressure 147/93 147/93 152/86 O2 Sat by Pulse 99 99 100 Oximetry General appearance: Present: mild distress, well-nourished - EENT Eyes: PERRL, EOM intact ENT: hearing intact, clear oral mucosa Ears: bilateral: normal - Neck Neck: supple, normal ROM - Respiratory Respiratory effort: normal Respiratory: bilateral: CTA - Breasts Breasts: normal - Cardiovascular Heart rate: 78 Heart Sounds: Present: S1 & S2. Absent: gallop, rub Extremities: pulses intact, No edema, normal color, Full ROM - Gastrointestinal General gastrointestinal: Present: soft, non-tender, non-distended, normal bowel sounds - Genitourinary Female genitourinary: normal - Integumentary Integumentary: clear, warm, dry - Musculoskeletal Musculoskeletal: generalized weakness - Neurologic Neurologic: moves all extremities - Psychiatric Psychiatric: memory intact, appropriate mood/affect, intact judgment & insight - Labs CBC & Chem 7: 01/24/20 06:00 01/24/20 06:00 Labs: Abnormal lab results 01/24/20 01/24/20 01/24/20 Range/Units 10: 12:31 17:59 POC Glucose 161 H 252 H 182 H (70-105) 01/25/20 01/25/20 Range/Units 00:21 05:43 POC Glucose 125 H 132 H (70-105)
--- NOTE | 2020-01-25 09:17 | Progress Note ---
Assessment and Plan - Patient Problems (1) Pneumonia Current Visit: Yes Status: Acute (2) Acute hypoxemic respiratory failure Current Visit: Yes Status: Acute Subjective Date of service: 01/25/20 Principal diagnosis: Ac. hypoxemic resp failure; COVID infection; PNA; ARACELI; Thrombocytopenia Interval history: ON VENT",,,,,NO PE DUE TO COVID INFEC. Objective Vital Signs Temp Pulse Pulse Resp BP Pulse Ox 01/25/20 08:31 107 H 14 152/86 100 01/25/20 08:29 105 H 23 147/93 99 01/25/20 08:00 111 H 105 H 20 147/93 99 01/25/20 07:31 97 H 20 152/86 99 01/25/20 07:01 110 H 21 196/88 100 01/25/20 06:31 111 H 19 163/70 100 01/25/20 06:01 107 H 23 163/70 98 01/25/20 05:34 111 H 20 100 01/25/20 05:31 107 H 17 163/70 100 01/25/20 05:01 125 H 15 169/106 96 01/25/20 04:31 112 H 24 151/75 98 01/25/20 04:00 130 H 14 167/109 98 01/25/20 03:31 105 H 22 151/75 99 01/25/20 03:25 99.2 F 01/25/20 03:00 105 H 21 151/75 98 01/25/20 02:31 102 H 24 162/97 100 01/25/20 02:01 113 H 17 162/97 97 01/25/20 01:50 119 H 181/75 01/25/20 01:31 124 H 26 H 181/75 98 01/25/20 01:05 98 01/25/20 01:01 130 H 23 164/77 97 01/25/20 00:59 122 H 25 H 164/77 98 01/25/20 00:31 123 H 26 H 162/73 98 01/25/20 00:00 112 H 23 162/73 98 01/24/20 23:35 98.9 F 01/24/20 23:31 108 H 20 167/92 99 01/24/20 23:01 135 H 31 H 168/93 96 01/24/20 22:31 114 H 31 H 167/92 99 01/24/20 22:00 105 H 28 H 167/92 97 01/24/20 21:31 119 H 21 172/92 98 01/24/20 21:01 133 H 35 H 189/103 97 01/24/20 20:31 104 H 22 189/103 99 01/24/20 20:25 104 H 24 99 01/24/20 20:00 109 H 27 H 173/89 100 01/24/20 19:54 110 H 22 173/89 100 01/24/20 19:31 224/97 100 01/24/20 19:01 144 H 26 H 163/77 97 01/24/20 18:31 128 H 35 H 163/77 99 01/24/20 18:00 108 H 19 163/77 98 01/24/20 17:31 103 H 20 161/80 99 01/24/20 17:00 109 H 19 161/80 97 01/24/20 16:40 114 H 21 144/69 99 01/24/20 16:31 137 H 17 144/69 99 01/24/20 16:01 105 H 19 144/69 97 01/24/20 15:31 114 H 21 151/75 99 01/24/20 15:01 108 H 26 H 151/75 96 01/24/20 14:45 113 H 176/100 01/24/20 14:36 22 01/24/20 14:31 138 H 11 L 159/90 96 01/24/20 14:00 110 H 14 148/81 97 01/24/20 13:31 117 H 18 168/87 97 01/24/20 13:01 121 H 26 H 170/88 96 01/24/20 12:31 128 H 25 H 179/94 100 01/24/20 12:28 122 H 30 H 179/94 100 01/24/20 12:01 158 H 23 170/107 100 01/24/20 12:00 100.2 F H 01/24/20 11:31 149 H 19 165/130 97 01/24/20 11:01 138 H 29 H 158/84 96 01/24/20 10:30 120 H 30 H 150/84 97 01/24/20 10:12 124 H 160/88 01/24/20 10:01 124 H 28 H 160/88 96 01/24/20 09:31 129 H 42 H 158/81 87 - Allied health notes Allied health notes reviewed: nursing
[2020-01-25] MEDS: clonazePAM 0.5 MG TAB PO SCH ×2 (10:21→22:17)
[2020-01-25] MEDS: FAMOTIDINE 20 MG TAB PO SCH ×2 (10:21→22:17)
[2020-01-25] MEDS: cloNIDine 0.1 MG TAB PO SCH ×2 (10:21→22:18)
[2020-01-25] MEDS: QUEtiapine 200 MG TAB PO SCH ×2 (10:29→22:30)
[2020-01-25] MEDS: CEFEPIME/NS 2 GM/100 ML 2 GM/100 ML BAG IV SCH ×2 (10:49→22:20)
[2020-01-25] MEDS: INSULIN GLARGINE 100 UNITS/ML SUB-Q SCH (10:49)
--- NOTE | 2020-01-25 10:55 | Progress Note ---
Assessment and Plan Acute hypoxemic respiratory failure s/p MVS Severe COVID infection Multifocal pneumonia Extreme obesity ARACELI- vasomotor nephropathy/COVID Thrombocytopenia Hyperglycemia Hypernatremia -Continue with NIPPV qhs and prn - NGT/small bowel feeding tube, continue enteric nutrition. - Avoid nephrotoxins, closely monitor renal function, renally dose all medications -Fluid conservative measures -Lower extemity dopplers are negative change to VTE prophyalxis dosing - continue bronchodilators with pulmonary hygiene per RT - Continue to wean supplemental oxygen for target O2 sats > 92% - Accuchecks with glycemic control per SSI (While critically ill target blood glucose of 140-180 mg/dL; avoid hypoglycemia) - Maintenance of sleep-wake cycle, avoid delirium - Aspiration precautions, HOB >40 -Stress ulcer prophylaxis - Mobility protocol, off loading and skin assessment for pressure ulcer prevention - Monitor hemodynamics closely -Continue to monitor in the ICU for another 24 hours -PT/OT/BALE PILER to evaluate and treat COVID SPECIFIC INTERVENTIONS -Airborne, contact isolation for COVID per facility protocols - s/p IV steroids-dexamethasone -Continue to trend d-dimer,and other inflammatory markers per facility protocol -No Convalescent plasma therapy- patient is blood less medicine and will not accept COVID convalescent plasma -s/p Remdesivir Discussed with the ICU team-RTRN CONDITION: FAIR PROGNOSIS: GUARDED CODE STATUS: FULL CODE Subjective Date of service: 01/25/20 Principal diagnosis: Ac. hypoxemic resp failure; COVID infection; PNA; ARACELI; Thrombocytopenia Interval history: Follow up fro acute hypoxemic respiratory failure s/p MVS; Severe-critical COVID infection: ARACELI; Extreme obesity: Seen and examined. 24 hour events reviewed. Vitals, albs,medications chart and imaging reviewed. On BIPAP which much improved saturations. Awake and alert. Consulted respiratory and nursing staff No fevers, no nausea or vomiting. NGT for nutritional support Objective Vital Signs - 12hr 01/24/20 01/24/20 01/24/20 23:01 23:31 23:35 Temperature 98.9 F Pulse Rate 135 H 108 H Pulse Rate [ From Monitor] Respiratory 31 H 20 Rate Blood Pressure 168/93 167/92 O2 Sat by Pulse 96 99 Oximetry 01/25/20 01/25/20 01/25/20 00:00 00:31 00:59 Temperature Pulse Rate 112 H 123 H 122 H Pulse Rate [ From Monitor] Respiratory 23 26 H 25 H Rate Blood Pressure 162/73 162/73 164/77 O2 Sat by Pulse 98 98 98 Oximetry 01/25/20 01/25/20 01/25/20 01:01 01:05 01:31 Temperature Pulse Rate 130 H 124 H Pulse Rate [ From Monitor] Respiratory 23 26 H Rate Blood Pressure 164/77 181/75 O2 Sat by Pulse 97 98 98 Oximetry 01/25/20 01/25/20 01/25/20 01:50 02:01 02:31 Temperature Pulse Rate 119 H 113 H 102 H Pulse Rate [ From Monitor] Respiratory 17 24 Rate Blood Pressure 181/75 162/97 162/97 O2 Sat by Pulse 97 100 Oximetry 01/25/20 01/25/20 01/25/20 03:00 03:25 03:31 Temperature 99.2 F Pulse Rate 105 H 105 H Pulse Rate [ From Monitor] Respiratory 21 22 Rate Blood Pressure 151/75 151/75 O2 Sat by Pulse 98 99 Oximetry 01/25/20 01/25/20 01/25/20 04:00 04:31 05:01 Temperature Pulse Rate 130 H 112 H 125 H Pulse Rate [ From Monitor] Respiratory 14 24 15 Rate Blood Pressure 167/109 151/75 169/106 O2 Sat by Pulse 98 98 96 Oximetry 01/25/20 01/25/20 01/25/20 05:31 05:34 06:01 Temperature Pulse Rate 107 H 111 H 107 H Pulse Rate [ From Monitor] Respiratory 17 20 23 Rate Blood Pressure 163/70 163/70 O2 Sat by Pulse 100 100 98 Oximetry 01/25/20 01/25/20 01/25/20 06:31 07:01 07:31 Temperature Pulse Rate 111 H 110 H 97 H Pulse Rate [ From Monitor] Respiratory 19 21 20 Rate Blood Pressure 163/70 196/88 152/86 O2 Sat by Pulse 100 100 99 Oximetry 01/25/20 01/25/20 01/25/20 08:00 08:29 08:31 Temperature 99.6 F Pulse Rate 111 H 105 H 107 H Pulse Rate [ 105 H From Monitor] Respiratory 20 23 14 Rate Blood Pressure 147/93 147/93 152/86 O2 Sat by Pulse 99 99 100 Oximetry 01/25/20 01/25/20 01/25/20 09:00 09:31 10:00 Temperature Pulse Rate 104 H 105 H 101 H Pulse Rate [ From Monitor] Respiratory 35 H 35 H 19 Rate Blood Pressure 164/89 164/89 166/82 O2 Sat by Pulse 99 100 99 Oximetry 01/25/20 10:21 Temperature Pulse Rate 108 H Pulse Rate [ From Monitor] Respiratory Rate Blood Pressure 166/82 O2 Sat by Pulse Oximetry Constitutional: no acute distress, alert, other (Morbidly obese AAW, NGT in nares) Eyes: non-icteric ENT: oropharynx moist Neck: supple, no lymphadenopathy, no JVD Effort: mildly labored Ascultation: Bilateral: diminished breath sounds, rhonchi Percussion: Bilateral: not dull Cardiovascular: regular rate and rhythm, other Gastrointestinal: normoactive bowel sounds, soft, non-tender, non-distended (protuberant) Integumentary: normal Extremities: no cyanosis, no edema, pulses normal, no ischemia or petechiae Neurologic: normal mental status, non-focal exam, pupils equal and round, CN II- XII normal, motor strength normal and Psychiatric: anxious CBC and BMP: 01/26/20 10:37 01/26/20 10:37 ABG, PT/INR, D-dimer: ABG ABG pH 7.46 (7.320-7.450) H 01/22/20 03:35 POC ABG pCO2 36.6 mmHg (32.0-48.0) 01/22/20 03:35 ABG pCO2 46.1 mm Hg 01/20/20 04:21 POC ABG pO2 84.0 mmHg (83-108) 01/22/20 03:35 ABG pO2 81.7 mm Hg (80.0-90.0) 01/20/20 04:21 POC ABG HCO3 25.4 01/22/20 03:35 ABG O2 Saturation 96.5 % (95.0-99.0) 01/20/20 04:21 PT/INR, D-dimer D-Dimer 451.53 ng/mlDDU (0-234) H 01/23/20 06:10 Abnormal lab findings: Abnormal Labs 01/11/20 01/11/20 01/11/20 17:22 17:22 17:22 WBC RBC Hgb Hct MCV MCH RDW Plt Count Lymph % (Auto) Mcdowell % (Auto) Mcdowell # Mcdowell # (Auto) Seg Neutrophils % Seg Neuts % (Manual) Lymphocytes % (Manual) Seg Neutrophils # Seg Neutrophils # Man Lymphocytes # (Manual) D-Dimer 622.52 H ABG pH POC ABG pCO2 POC ABG pO2 ABG pO2 ABG O2 Saturation ABG Base Excess ABG Oxyhemoglobin ABG HCO3 ABG Hemoglobin Oxyhemoglobin Sodium Potassium Chloride 97.6 L Carbon Dioxide 18 L BUN Creatinine Glucose 199 H POC Glucose Lactic Acid 2.20 H* Calcium Ferritin AST 68 H Magnesium Lactate Dehydrogenase C-Reactive Protein Total Protein Albumin 3.0 L Mseit-7-Fhisvsswl Mhxap-4-Ovjqqogqq PEP Interpretation Triglycerides TSH CHICA Screen Complement C4 Coronavirus (PCR) 01/11/20 01/11/20 01/11/20 17:22 17:22 23:29 WBC RBC Hgb Hct MCV MCH RDW Plt Count Lymph % (Auto) Mcdowell % (Auto) Mcdowell # Mcdowell # (Auto) Seg Neutrophils % Seg Neuts % (Manual) Lymphocytes % (Manual) Seg Neutrophils # Seg Neutrophils # Man Lymphocytes # (Manual) D-Dimer ABG pH POC ABG pCO2 POC ABG pO2 ABG pO2 ABG O2 Saturation ABG Base Excess ABG Oxyhemoglobin ABG HCO3 ABG Hemoglobin Oxyhemoglobin Sodium Potassium Chloride Carbon Dioxide BUN Creatinine Glucose 202 H POC Glucose Lactic Acid 2.10 H* Calcium Ferritin 270.3 H AST Magnesium Lactate Dehydrogenase 610 H C-Reactive Protein 23.80 H Total Protein Albumin Lumsk-0-Lafgcqjfx Ncwqe-7-Qfzomrxln PEP Interpretation Triglycerides TSH CHICA Screen Complement C4 Coronavirus (PCR) 01/12/20 01/12/20 01/12/20 07:07 07:07 09:00 WBC RBC 5.31 H Hgb Hct MCV 76 L MCH 25 L RDW 15.5 H Plt Count Lymph % (Auto) 11.2 L Mcdowell % (Auto) Mcdowell # Mcdowell # (Auto) Seg Neutrophils % 85.2 H Seg Neuts % (Manual) Lymphocytes % (Manual) Seg Neutrophils # 9.2 H Seg Neutrophils # Man Lymphocytes # (Manual) D-Dimer ABG pH POC ABG pCO2 POC ABG pO2 ABG pO2 ABG O2 Saturation ABG Base Excess ABG Oxyhemoglobin ABG HCO3 ABG Hemoglobin Oxyhemoglobin Sodium Potassium Chloride Carbon Dioxide 21 L BUN 23 H Creatinine Glucose 206 H POC Glucose Lactic Acid Calcium Ferritin AST Magnesium Lactate Dehydrogenase C-Reactive Protein Total Protein Albumin Emumo-0-Nkoqvmidd Xqkiq-8-Tatercotw PEP Interpretation Triglycerides TSH CHICA Screen Complement C4 Coronavirus (PCR) Positive A 01/13/20 01/13/20 01/13/20 01:02 04:45 05:10 WBC RBC Hgb Hct MCV MCH RDW Plt Count Lymph % (Auto) Mcdowell % (Auto) Mcdowell # Mcdowell # (Auto) Seg Neutrophils % Seg Neuts % (Manual) Lymphocytes % (Manual) Seg Neutrophils # Seg Neutrophils # Man Lymphocytes # (Manual) D-Dimer > 09805 H ABG pH 7.19 L POC ABG pCO2 56.2 H POC ABG pO2 44.3 L 62.5 L ABG pO2 ABG O2 Saturation ABG Base Excess ABG Oxyhemoglobin 77.5 L 86.5 L ABG HCO3 ABG Hemoglobin Oxyhemoglobin Sodium Potassium Chloride Carbon Dioxide BUN Creatinine Glucose POC Glucose Lactic Acid Calcium Ferritin AST Magnesium Lactate Dehydrogenase C-Reactive Protein Total Protein Albumin Hwwlv-7-Jpxyyfjkn Uqgkj-0-Itfiaundx PEP Interpretation Triglycerides TSH CHICA Screen Complement C4 Coronavirus (PCR) 01/13/20 01/13/20 01/13/20 05:10 05:54 12:07 WBC RBC Hgb Hct MCV MCH RDW Plt Count Lymph % (Auto) Mcdowell % (Auto) Mcdowell # Mcdowell # (Auto) Seg Neutrophils % Seg Neuts % (Manual) Lymphocytes % (Manual) Seg Neutrophils # Seg Neutrophils # Man Lymphocytes # (Manual) D-Dimer ABG pH POC ABG pCO2 POC ABG pO2 ABG pO2 ABG O2 Saturation ABG Base Excess ABG Oxyhemoglobin ABG HCO3 ABG Hemoglobin Oxyhemoglobin Sodium Potassium Chloride Carbon Dioxide BUN Creatinine Glucose POC Glucose 356 H 309 H Lactic Acid Calcium Ferritin AST Magnesium Lactate Dehydrogenase 999 H C-Reactive Protein Total Protein Albumin Uoxdm-3-Wmmcvaset Vnfqg-6-Zcxlnkhnk PEP Interpretation Triglycerides TSH CHICA Screen Complement C4 Coronavirus (PCR) 01/13/20 01/13/20 01/13/20 12:54 18:46 18:50 WBC 14.0 H RBC Hgb Hct MCV 76 L MCH 25 L RDW 15.8 H Plt Count 113 L Lymph % (Auto) Mcdowell % (Auto) Mcdowell # Mcdowell # (Auto) Seg Neutrophils % Seg Neuts % (Manual) 88.0 H Lymphocytes % (Manual) 2.0 L Seg Neutrophils # Seg Neutrophils # Man 12.3 H Lymphocytes # (Manual) 0.3 L D-Dimer ABG pH 7.290 L POC ABG pCO2 POC ABG pO2 ABG pO2 60.2 L ABG O2 Saturation 88.6 L ABG Base Excess -2.7 L ABG Oxyhemoglobin ABG HCO3 ABG Hemoglobin Oxyhemoglobin 87.1 L Sodium Potassium Chloride Carbon Dioxide BUN Creatinine Glucose POC Glucose 268 H Lactic Acid Calcium Ferritin AST Magnesium Lactate Dehydrogenase C-Reactive Protein Total Protein Albumin Pvqgi-0-Woelkkkdc Hqxbe-2-Rdayjiuxd PEP Interpretation Triglycerides TSH CHICA Screen Complement C4 Coronavirus (PCR) 01/13/20 01/14/20 01/14/20 23:53 00:31 03:13 WBC RBC Hgb Hct MCV MCH RDW Plt Count Lymph % (Auto) Mcdowell % (Auto) Mcdowell # Mcdowell # (Auto) Seg Neutrophils % Seg Neuts % (Manual) Lymphocytes % (Manual) Seg Neutrophils # Seg Neutrophils # Man Lymphocytes # (Manual) D-Dimer ABG pH POC ABG pCO2 POC ABG pO2 ABG pO2 132.6 H ABG O2 Saturation ABG Base Excess -2.7 L ABG Oxyhemoglobin ABG HCO3 ABG Hemoglobin Oxyhemoglobin Sodium Potassium 5.3 H Chloride Carbon Dioxide BUN 55 H Creatinine 1.6 H Glucose 268 H POC Glucose 259 H Lactic Acid Calcium Ferritin AST 46 H Magnesium Lactate Dehydrogenase C-Reactive Protein Total Protein 6.1 L Albumin 3.1 L Gcmma-9-Kfwoentkg Fybse-9-Vnbdsnyfw PEP Interpretation Triglycerides TSH CHICA Screen Complement C4 Coronavirus (PCR) 01/14/20 01/14/20 01/14/20 05:23 06:06 09:47 WBC RBC Hgb Hct MCV MCH RDW Plt Count Lymph % (Auto) Mcdowell % (Auto) Mcdowell # Mcdowell # (Auto) Seg Neutrophils % Seg Neuts % (Manual) Lymphocytes % (Manual) Seg Neutrophils # Seg Neutrophils # Man Lymphocytes # (Manual) D-Dimer > 51564 H ABG pH POC ABG pCO2 POC ABG pO2 ABG pO2 ABG O2 Saturation ABG Base Excess ABG Oxyhemoglobin ABG HCO3 ABG Hemoglobin Oxyhemoglobin Sodium Potassium 5.5 H Chloride 107.6 H Carbon Dioxide 21 L BUN 58 H Creatinine 1.7 H Glucose 231 H POC Glucose 231 H Lactic Acid Calcium Ferritin AST Magnesium Lactate Dehydrogenase C-Reactive Protein Total Protein Albumin Fbrnz-6-Stnvwjqtz Aeppf-6-Yeffngqzj PEP Interpretation Triglycerides TSH CHICA Screen Complement C4 Coronavirus (PCR) 01/14/20 01/14/20 01/14/20 09:47 12:20 16:00 WBC RBC Hgb Hct MCV MCH RDW Plt Count Lymph % (Auto) Mcdowell % (Auto) Mcdowell # Mcdowell # (Auto) Seg Neutrophils % Seg Neuts % (Manual) Lymphocytes % (Manual) Seg Neutrophils # Seg Neutrophils # Man Lymphocytes # (Manual) D-Dimer ABG pH POC ABG pCO2 POC ABG pO2 ABG pO2 69.3 L ABG O2 Saturation 94.4 L ABG Base Excess ABG Oxyhemoglobin ABG HCO3 ABG Hemoglobin Oxyhemoglobin 92.7 L Sodium Potassium Chloride 107.2 H Carbon Dioxide 21 L BUN 63 H Creatinine 1.5 H Glucose 217 H POC Glucose 238 H Lactic Acid Calcium Ferritin AST Magnesium Lactate Dehydrogenase C-Reactive Protein Total Protein 6.0 L Albumin 2.7 L Xmusm-4-Npnpyegsp Wmmrh-0-Dutfftmuk PEP Interpretation Triglycerides TSH CHICA Screen Complement C4 Coronavirus (PCR) 01/14/20 01/14/20 01/14/20 18:24 19:01 23:50 WBC RBC Hgb Hct MCV MCH RDW Plt Count Lymph % (Auto) Mcdowell % (Auto) Mcdowell # Mcdowell # (Auto) Seg Neutrophils % Seg Neuts % (Manual) Lymphocytes % (Manual) Seg Neutrophils # Seg Neutrophils # Man Lymphocytes # (Manual) D-Dimer ABG pH POC ABG pCO2 POC ABG pO2 ABG pO2 ABG O2 Saturation ABG Base Excess ABG Oxyhemoglobin ABG HCO3 ABG Hemoglobin Oxyhemoglobin Sodium 146 H Potassium 5.9 H Chloride 108.0 H Carbon Dioxide 20 L BUN 61 H Creatinine 1.4 H Glucose 254 H POC Glucose 228 H 321 H Lactic Acid Calcium Ferritin AST Magnesium Lactate Dehydrogenase C-Reactive Protein Total Protein Albumin Mhuli-4-Zillowfqn Dcxak-1-Zfazajdbd PEP Interpretation Triglycerides TSH CHICA Screen Complement C4 Coronavirus (PCR) 01/14/20 01/14/20 01/14/20 Unknown Unknown Unknown WBC RBC Hgb Hct MCV MCH RDW Plt Count Lymph % (Auto) Mcdowell % (Auto) Mcdowell # Mcdowell # (Auto) Seg Neutrophils % Seg Neuts % (Manual) Lymphocytes % (Manual) Seg Neutrophils # Seg Neutrophils # Man Lymphocytes # (Manual) D-Dimer ABG pH POC ABG pCO2 POC ABG pO2 ABG pO2 ABG O2 Saturation ABG Base Excess ABG Oxyhemoglobin ABG HCO3 ABG Hemoglobin Oxyhemoglobin Sodium Potassium Chloride Carbon Dioxide BUN Creatinine Glucose POC Glucose Lactic Acid Calcium Ferritin AST Magnesium Lactate Dehydrogenase C-Reactive Protein Total Protein Albumin 2.8 L Vrivx-9-Ryxdhcalk 0.6 H Nngio-5-Vagksiuai 1.1 H PEP Interpretation see below H Triglycerides TSH CHICA Screen Positive H Complement C4 76 H Coronavirus (PCR) 01/15/20 01/15/20 01/15/20 03:37 03:57 03:57 WBC 14.9 H RBC Hgb Hct MCV 75 L MCH 25 L RDW 15.4 H Plt Count Lymph % (Auto) 8.6 L Mcdowell % (Auto) Mcdowell # 1.0 H Mcdowell # (Auto) Seg Neutrophils % 84.2 H Seg Neuts % (Manual) Lymphocytes % (Manual) Seg Neutrophils # 12.5 H Seg Neutrophils # Man Lymphocytes # (Manual) D-Dimer ABG pH 7.480 H POC ABG pCO2 POC ABG pO2 76.7 L ABG pO2 ABG O2 Saturation ABG Base Excess ABG Oxyhemoglobin ABG HCO3 ABG Hemoglobin Oxyhemoglobin Sodium 152 H Potassium Chloride 113.0 H Carbon Dioxide BUN 52 H Creatinine Glucose 288 H POC Glucose Lactic Acid Calcium Ferritin AST Magnesium Lactate Dehydrogenase C-Reactive Protein Total Protein Albumin Tqfci-3-Piokntasd Mtubj-5-Vnltfgsal PEP Interpretation Triglycerides TSH CHICA Screen Complement C4 Coronavirus (PCR) 01/15/20 01/15/20 01/15/20 05:50 11:56 14:35 WBC RBC Hgb Hct MCV MCH RDW Plt Count Lymph % (Auto) Mcdowell % (Auto) Mcdowell # Mcdowell # (Auto) Seg Neutrophils % Seg Neuts % (Manual) Lymphocytes % (Manual) Seg Neutrophils # Seg Neutrophils # Man Lymphocytes # (Manual) D-Dimer ABG pH POC ABG pCO2 POC ABG pO2 ABG pO2 ABG O2 Saturation ABG Base Excess ABG Oxyhemoglobin ABG HCO3 ABG Hemoglobin Oxyhemoglobin Sodium Potassium Chloride Carbon Dioxide BUN Creatinine Glucose POC Glucose 259 H 162 H Lactic Acid Calcium Ferritin 332.4 H AST Magnesium Lactate Dehydrogenase C-Reactive Protein Total Protein Albumin Ffdwf-1-Sjdzojmsk Xbbcw-6-Lllnsjbtq PEP Interpretation Triglycerides TSH CHICA Screen Complement C4 Coronavirus (PCR) 01/15/20 01/15/20 01/15/20 14:35 14:35 14:35 WBC RBC Hgb Hct MCV MCH RDW Plt Count Lymph % (Auto) Mcdowell % (Auto) Mcdowell # Mcdowell # (Auto) Seg Neutrophils % Seg Neuts % (Manual) Lymphocytes % (Manual) Seg Neutrophils # Seg Neutrophils # Man Lymphocytes # (Manual) D-Dimer ABG pH POC ABG pCO2 POC ABG pO2 ABG pO2 ABG O2 Saturation ABG Base Excess ABG Oxyhemoglobin ABG HCO3 ABG Hemoglobin Oxyhemoglobin Sodium Potassium Chloride Carbon Dioxide BUN Creatinine Glucose POC Glucose Lactic Acid Calcium Ferritin AST Magnesium 3.00 H Lactate Dehydrogenase 747 H C-Reactive Protein 7.60 H Total Protein Albumin Spiac-2-Hryfuwsqq Qbrxc-0-Xpsasjfzu PEP Interpretation Triglycerides TSH 0.221 L CHICA Screen Complement C4 Coronavirus (PCR) 01/15/20 01/15/20 01/15/20 16:18 17:31 23:26 WBC RBC Hgb Hct MCV MCH RDW Plt Count Lymph % (Auto) Mcdowell % (Auto) Mcdowell # Mcdowell # (Auto) Seg Neutrophils % Seg Neuts % (Manual) Lymphocytes % (Manual) Seg Neutrophils # Seg Neutrophils # Man Lymphocytes # (Manual) D-Dimer ABG pH 7.510 H POC ABG pCO2 POC ABG pO2 76.6 L ABG pO2 ABG O2 Saturation ABG Base Excess ABG Oxyhemoglobin ABG HCO3 ABG Hemoglobin Oxyhemoglobin Sodium Potassium Chloride Carbon Dioxide BUN Creatinine Glucose POC Glucose 239 H 226 H Lactic Acid Calcium Ferritin AST Magnesium Lactate Dehydrogenase C-Reactive Protein Total Protein Albumin Qbpna-5-Uffukeytb Aobnr-8-Vtlyrpvyj PEP Interpretation Triglycerides TSH CHICA Screen Complement C4 Coronavirus (PCR) 01/16/20 01/16/20 01/16/20 03:33 04:00 04:00 WBC 13.6 H RBC Hgb Hct MCV 74 L MCH 25 L RDW 15.4 H Plt Count Lymph % (Auto) Mcdowell % (Auto) Mcdowell # Mcdowell # (Auto) Seg Neutrophils % Seg Neuts % (Manual) 91.0 H Lymphocytes % (Manual) 5.0 L Seg Neutrophils # Seg Neutrophils # Man 12.4 H Lymphocytes # (Manual) 0.7 L D-Dimer ABG pH 7.477 H POC ABG pCO2 POC ABG pO2 ABG pO2 ABG O2 Saturation ABG Base Excess ABG Oxyhemoglobin ABG HCO3 ABG Hemoglobin Oxyhemoglobin Sodium 151 H Potassium Chloride 113.8 H Carbon Dioxide BUN 45 H Creatinine Glucose 213 H POC Glucose Lactic Acid Calcium Ferritin AST Magnesium Lactate Dehydrogenase C-Reactive Protein Total Protein Albumin Dqynd-7-Fsnnaliya Hazhu-0-Datdniudx PEP Interpretation Triglycerides TSH CHICA Screen Complement C4 Coronavirus (PCR) 01/16/20 01/16/20 01/16/20 05:45 12:02 17:27 WBC RBC Hgb Hct MCV MCH RDW Plt Count Lymph % (Auto) Mcdowell % (Auto) Mcdowell # Mcdowell # (Auto) Seg Neutrophils % Seg Neuts % (Manual) Lymphocytes % (Manual) Seg Neutrophils # Seg Neutrophils # Man Lymphocytes # (Manual) D-Dimer ABG pH POC ABG pCO2 POC ABG pO2 ABG pO2 ABG O2 Saturation ABG Base Excess ABG Oxyhemoglobin ABG HCO3 ABG Hemoglobin Oxyhemoglobin Sodium Potassium Chloride Carbon Dioxide BUN Creatinine Glucose POC Glucose 202 H 186 H 240 H Lactic Acid Calcium Ferritin AST Magnesium Lactate Dehydrogenase C-Reactive Protein Total Protein Albumin Znooh-0-Mvskobgse Acrvr-4-Lvsqqqsva PEP Interpretation Triglycerides TSH CHICA Screen Complement C4 Coronavirus (PCR) 01/17/20 01/17/20 01/17/20 00:07 04:50 05:46 WBC RBC Hgb Hct MCV MCH RDW Plt Count Lymph % (Auto) Mcdowell % (Auto) Mcdowell # Mcdowell # (Auto) Seg Neutrophils % Seg Neuts % (Manual) Lymphocytes % (Manual) Seg Neutrophils # Seg Neutrophils # Man Lymphocytes # (Manual) D-Dimer ABG pH 7.494 H POC ABG pCO2 POC ABG pO2 ABG pO2 73.4 L ABG O2 Saturation ABG Base Excess ABG Oxyhemoglobin ABG HCO3 ABG Hemoglobin Oxyhemoglobin 94.4 L Sodium Potassium Chloride Carbon Dioxide BUN Creatinine Glucose POC Glucose 207 H 170 H Lactic Acid Calcium Ferritin AST Magnesium Lactate Dehydrogenase C-Reactive Protein Total Protein Albumin Nhhms-3-Txukahoxx Ynxqo-5-Shsnlpztj PEP Interpretation Triglycerides TSH CHICA Screen Complement C4 Coronavirus (PCR) 01/17/20 01/17/20 01/17/20 06:00 06:00 11:32 WBC 11.5 H RBC Hgb Hct MCV 75 L MCH 25 L RDW 15.5 H Plt Count Lymph % (Auto) Mcdowell % (Auto) Mcdowell # Mcdowell # (Auto) Seg Neutrophils % Seg Neuts % (Manual) 81.0 H Lymphocytes % (Manual) 10.0 L Seg Neutrophils # Seg Neutrophils # Man 9.3 H Lymphocytes # (Manual) D-Dimer ABG pH POC ABG pCO2 POC ABG pO2 ABG pO2 ABG O2 Saturation ABG Base Excess ABG Oxyhemoglobin ABG HCO3 ABG Hemoglobin Oxyhemoglobin Sodium 151 H Potassium Chloride 113.6 H Carbon Dioxide BUN 40 H Creatinine Glucose 149 H POC Glucose 229 H Lactic Acid Calcium Ferritin AST Magnesium Lactate Dehydrogenase C-Reactive Protein Total Protein Albumin Pfhzu-6-Ciwvzoypi Ohddi-8-Tnhbcqzwg PEP Interpretation Triglycerides TSH CHICA Screen Complement C4 Coronavirus (PCR) 01/17/20 01/17/20 01/17/20 13:40 13:40 13:40 WBC RBC Hgb Hct MCV MCH RDW Plt Count Lymph % (Auto) Mcdowell % (Auto) Mcdowell # Mcdowell # (Auto) Seg Neutrophils % Seg Neuts % (Manual) Lymphocytes % (Manual) Seg Neutrophils # Seg Neutrophils # Man Lymphocytes # (Manual) D-Dimer 1878.79 H ABG pH POC ABG pCO2 POC ABG pO2 ABG pO2 ABG O2 Saturation ABG Base Excess ABG Oxyhemoglobin ABG HCO3 ABG Hemoglobin Oxyhemoglobin Sodium Potassium Chloride Carbon Dioxide BUN Creatinine Glucose POC Glucose Lactic Acid Calcium Ferritin 322.8 H AST Magnesium Lactate Dehydrogenase 587 H C-Reactive Protein 4.60 H Total Protein Albumin Pvtet-4-Aymlzgrtz Nneak-6-Ngclvvggd PEP Interpretation Triglycerides TSH CHICA Screen Complement C4 Coronavirus (PCR) 01/17/20 01/17/20 01/17/20 17:45 21:30 23:53 WBC RBC Hgb Hct MCV MCH RDW Plt Count Lymph % (Auto) Mcdowell % (Auto) Mcdowell # Mcdowell # (Auto) Seg Neutrophils % Seg Neuts % (Manual) Lymphocytes % (Manual) Seg Neutrophils # Seg Neutrophils # Man Lymphocytes # (Manual) D-Dimer ABG pH POC ABG pCO2 POC ABG pO2 ABG pO2 179.6 H ABG O2 Saturation 99.2 H ABG Base Excess ABG Oxyhemoglobin ABG HCO3 ABG Hemoglobin 11.8 L Oxyhemoglobin Sodium Potassium Chloride Carbon Dioxide BUN Creatinine Glucose POC Glucose 364 H 272 H Lactic Acid Calcium Ferritin AST Magnesium Lactate Dehydrogenase C-Reactive Protein Total Protein Albumin Muufw-4-Hcyznwjsc Iwwce-6-Nrkvqkrwx PEP Interpretation Triglycerides TSH CHICA Screen Complement C4 Coronavirus (PCR) 01/18/20 01/18/20 01/18/20 03:40 04:00 05:00 WBC RBC Hgb Hct MCV MCH RDW Plt Count Lymph % (Auto) Mcdowell % (Auto) Mcdowell # Mcdowell # (Auto) Seg Neutrophils % Seg Neuts % (Manual) Lymphocytes % (Manual) Seg Neutrophils # Seg Neutrophils # Man Lymphocytes # (Manual) D-Dimer ABG pH POC ABG pCO2 POC ABG pO2 ABG pO2 162.6 H ABG O2 Saturation ABG Base Excess ABG Oxyhemoglobin ABG HCO3 ABG Hemoglobin Oxyhemoglobin Sodium 150 H Potassium Chloride 113.4 H Carbon Dioxide BUN 44 H Creatinine Glucose 268 H POC Glucose Lactic Acid Calcium Ferritin AST Magnesium Lactate Dehydrogenase C-Reactive Protein Total Protein Albumin Bzmla-8-Fawrgtkdy Nccta-3-Lhkhtusgz PEP Interpretation Triglycerides 198 H TSH CHICA Screen Complement C4 Coronavirus (PCR) 01/18/20 01/18/20 01/18/20 05:54 11:21 17:27 WBC RBC Hgb Hct MCV MCH RDW Plt Count Lymph % (Auto) Mcdowell % (Auto) Mcdowell # Mcdowell # (Auto) Seg Neutrophils % Seg Neuts % (Manual) Lymphocytes % (Manual) Seg Neutrophils # Seg Neutrophils # Man Lymphocytes # (Manual) D-Dimer ABG pH POC ABG pCO2 POC ABG pO2 ABG pO2 ABG O2 Saturation ABG Base Excess ABG Oxyhemoglobin ABG HCO3 ABG Hemoglobin Oxyhemoglobin Sodium Potassium Chloride Carbon Dioxide BUN Creatinine Glucose POC Glucose 271 H 244 H 232 H Lactic Acid Calcium Ferritin AST Magnesium Lactate Dehydrogenase C-Reactive Protein Total Protein Albumin Rxpzw-8-Vwzbgaxvk Wpmfw-6-Hawaldfpa PEP Interpretation Triglycerides TSH CHICA Screen Complement C4 Coronavirus (PCR) 01/19/20 01/19/20 01/19/20 00:12 04:00 04:40 WBC RBC Hgb Hct MCV MCH RDW Plt Count Lymph % (Auto) Mcdowell % (Auto) Mcdowell # Mcdowell # (Auto) Seg Neutrophils % Seg Neuts % (Manual) Lymphocytes % (Manual) Seg Neutrophils # Seg Neutrophils # Man Lymphocytes # (Manual) D-Dimer ABG pH POC ABG pCO2 POC ABG pO2 ABG pO2 117.2 H ABG O2 Saturation ABG Base Excess ABG Oxyhemoglobin ABG HCO3 ABG Hemoglobin 9.7 L Oxyhemoglobin Sodium 146 H Potassium Chloride 111.3 H Carbon Dioxide BUN 38 H Creatinine Glucose 168 H POC Glucose 143 H Lactic Acid Calcium Ferritin AST Magnesium Lactate Dehydrogenase C-Reactive Protein Total Protein Albumin [id number] PEP Interpretation Triglycerides TSH CHICA Screen Complement C4 Coronavirus (PCR) 01/19/20 01/19/20 01/19/20 05:41 12:02 18:13 WBC RBC Hgb Hct MCV MCH RDW Plt Count Lymph % (Auto) Mcdowell % (Auto) Mcdowell # Mcdowell # (Auto) Seg Neutrophils % Seg Neuts % (Manual) Lymphocytes % (Manual) Seg Neutrophils # Seg Neutrophils # Man Lymphocytes # (Manual) D-Dimer ABG pH POC ABG pCO2 POC ABG pO2 ABG pO2 ABG O2 Saturation ABG Base Excess ABG Oxyhemoglobin ABG HCO3 ABG Hemoglobin Oxyhemoglobin Sodium Potassium Chloride Carbon Dioxide BUN Creatinine Glucose POC Glucose 171 H 208 H 272 H Lactic Acid Calcium Ferritin AST Magnesium Lactate Dehydrogenase C-Reactive Protein Total Protein Albumin Wleeo-1-Lwjmbsehw Uxeqk-8-Aisitnexc PEP Interpretation Triglycerides TSH CHICA Screen Complement C4 Coronavirus (PCR) 01/20/20 01/20/20 01/20/20 00:13 04:21 05:30 WBC RBC Hgb Hct MCV MCH RDW Plt Count Lymph % (Auto) Mcdowell % (Auto) Mcdowell # Mcdowell # (Auto) Seg Neutrophils % Seg Neuts % (Manual) Lymphocytes % (Manual) Seg Neutrophils # Seg Neutrophils # Man Lymphocytes # (Manual) D-Dimer ABG pH POC ABG pCO2 POC ABG pO2 ABG pO2 ABG O2 Saturation ABG Base Excess ABG Oxyhemoglobin ABG HCO3 26.8 H ABG Hemoglobin 10.7 L Oxyhemoglobin 94.3 L Sodium Potassium Chloride Carbon Dioxide BUN Creatinine Glucose POC Glucose 223 H 129 H Lactic Acid Calcium Ferritin AST Magnesium Lactate Dehydrogenase C-Reactive Protein Total Protein Albumin Pnhed-3-Jjmcpsenp Picgz-2-Omcqrgodb PEP Interpretation Triglycerides TSH CHICA Screen Complement C4 Coronavirus (PCR) 01/20/20 01/20/20 01/20/20 11:14 11:14 11:14 WBC RBC Hgb Hct MCV MCH RDW Plt Count Lymph % (Auto) Mcdowell % (Auto) Mcdowell # Mcdowell # (Auto) Seg Neutrophils % Seg Neuts % (Manual) Lymphocytes % (Manual) Seg Neutrophils # Seg Neutrophils # Man Lymphocytes # (Manual) D-Dimer 1221.96 H ABG pH POC ABG pCO2 POC ABG pO2 ABG pO2 ABG O2 Saturation ABG Base Excess ABG Oxyhemoglobin ABG HCO3 ABG Hemoglobin Oxyhemoglobin Sodium Potassium Chloride Carbon Dioxide BUN Creatinine Glucose POC Glucose Lactic Acid Calcium Ferritin 364.6 H AST Magnesium Lactate Dehydrogenase 403 H C-Reactive Protein 5.10 H Total Protein Albumin Kpkdb-9-Xaoveqhkg Qwvoo-2-Zeuylupcg PEP Interpretation Triglycerides TSH CHICA Screen Complement C4 Coronavirus (PCR) 01/20/20 01/20/20 01/20/20 12:01 18:10 23:07 WBC RBC Hgb Hct MCV MCH RDW Plt Count Lymph % (Auto) Mcdowell % (Auto) Mcdowell # Mcdowell # (Auto) Seg Neutrophils % Seg Neuts % (Manual) Lymphocytes % (Manual) Seg Neutrophils # Seg Neutrophils # Man Lymphocytes # (Manual) D-Dimer ABG pH POC ABG pCO2 POC ABG pO2 ABG pO2 ABG O2 Saturation ABG Base Excess ABG Oxyhemoglobin ABG HCO3 ABG Hemoglobin Oxyhemoglobin Sodium Potassium Chloride Carbon Dioxide BUN Creatinine Glucose POC Glucose 260 H 317 H 237 H Lactic Acid Calcium Ferritin AST Magnesium Lactate Dehydrogenase C-Reactive Protein Total Protein Albumin Bjoti-6-Mcyxzhfgl Hehdi-7-Fjxflxlsl PEP Interpretation Triglycerides TSH CHICA Screen Complement C4 Coronavirus (PCR) 01/21/20 01/21/20 01/21/20 05:25 05:25 05:42 WBC 11.3 H RBC Hgb 9.1 L Hct 28.9 L MCV 77 L MCH 24 L RDW Plt Count Lymph % (Auto) Mcdowell % (Auto) Mcdowell # Mcdowell # (Auto) Seg Neutrophils % Seg Neuts % (Manual) Lymphocytes % (Manual) Seg Neutrophils # Seg Neutrophils # Man Lymphocytes # (Manual) D-Dimer ABG pH POC ABG pCO2 POC ABG pO2 ABG pO2 ABG O2 Saturation ABG Base Excess ABG Oxyhemoglobin ABG HCO3 ABG Hemoglobin Oxyhemoglobin Sodium 147 H Potassium Chloride 111.0 H Carbon Dioxide 31 H D BUN 20 H Creatinine Glucose 103 H POC Glucose 110 H Lactic Acid Calcium 8.2 L Ferritin AST Magnesium Lactate Dehydrogenase C-Reactive Protein Total Protein Albumin Gmtue-4-Yofygdcob Osvjv-6-Auibdblsm PEP Interpretation Triglycerides TSH CHICA Screen Complement C4 Coronavirus (PCR) 01/21/20 01/21/20 01/21/20 11:49 18:41 21:53 WBC RBC Hgb Hct MCV MCH RDW Plt Count Lymph % (Auto) Mcdowell % (Auto) Mcdowell # Mcdowell # (Auto) Seg Neutrophils % Seg Neuts % (Manual) Lymphocytes % (Manual) Seg Neutrophils # Seg Neutrophils # Man Lymphocytes # (Manual) D-Dimer ABG pH POC ABG pCO2 POC ABG pO2 ABG pO2 ABG O2 Saturation ABG Base Excess ABG Oxyhemoglobin ABG HCO3 ABG Hemoglobin Oxyhemoglobin Sodium Potassium Chloride Carbon Dioxide BUN Creatinine Glucose POC Glucose 147 H 290 H 255 H Lactic Acid Calcium Ferritin AST Magnesium Lactate Dehydrogenase C-Reactive Protein Total Protein Albumin Kgalz-1-Uflcowfjc Yenko-6-Yhhcmyjft PEP Interpretation Triglycerides TSH CHICA Screen Complement C4 Coronavirus (PCR) 01/22/20 01/22/20 01/22/20 03:35 04:42 05:23 WBC RBC Hgb Hct MCV MCH RDW Plt Count Lymph % (Auto) Mcdowell % (Auto) Mcdowell # Mcdowell # (Auto) Seg Neutrophils % Seg Neuts % (Manual) Lymphocytes % (Manual) Seg Neutrophils # Seg Neutrophils # Man Lymphocytes # (Manual) D-Dimer ABG pH 7.46 H POC ABG pCO2 POC ABG pO2 ABG pO2 ABG O2 Saturation ABG Base Excess ABG Oxyhemoglobin ABG HCO3 ABG Hemoglobin 10.4 L Oxyhemoglobin Sodium 148 H Potassium 3.5 L Chloride 108.1 H Carbon Dioxide BUN 19 H Creatinine Glucose 159 H POC Glucose 173 H Lactic Acid Calcium 8.1 L Ferritin AST Magnesium Lactate Dehydrogenase C-Reactive Protein Total Protein Albumin Nzrhp-6-Sqsafcqab Estdn-2-Lpnupxnwa PEP Interpretation Triglycerides TSH CHICA Screen Complement C4 Coronavirus (PCR) 01/22/20 01/22/20 01/22/20 12:41 17:46 23:06 WBC RBC Hgb Hct MCV MCH RDW Plt Count Lymph % (Auto) Mcdowell % (Auto) Mcdowell # Mcdowell # (Auto) Seg Neutrophils % Seg Neuts % (Manual) Lymphocytes % (Manual) Seg Neutrophils # Seg Neutrophils # Man Lymphocytes # (Manual) D-Dimer ABG pH POC ABG pCO2 POC ABG pO2 ABG pO2 ABG O2 Saturation ABG Base Excess ABG Oxyhemoglobin ABG HCO3 ABG Hemoglobin Oxyhemoglobin Sodium Potassium Chloride Carbon Dioxide BUN Creatinine Glucose POC Glucose 284 H 245 H 245 H Lactic Acid Calcium Ferritin AST Magnesium Lactate Dehydrogenase C-Reactive Protein Total Protein Albumin Vvepd-5-Lcosnujhz Eduuk-7-Miqbztfue PEP Interpretation Triglycerides TSH CHICA Screen Complement C4 Coronavirus (PCR) 01/23/20 01/23/20 01/23/20 05:50 06:10 06:10 WBC RBC Hgb Hct MCV MCH RDW Plt Count Lymph % (Auto) Mcdowell % (Auto) Mcdowell # Mcdowell # (Auto) Seg Neutrophils % Seg Neuts % (Manual) Lymphocytes % (Manual) Seg Neutrophils # Seg Neutrophils # Man Lymphocytes # (Manual) D-Dimer 451.53 H ABG pH POC ABG pCO2 POC ABG pO2 ABG pO2 ABG O2 Saturation ABG Base Excess ABG Oxyhemoglobin ABG HCO3 ABG Hemoglobin Oxyhemoglobin Sodium Potassium Chloride 110.3 H Carbon Dioxide BUN 19 H Creatinine 0.5 L Glucose 178 H POC Glucose 184 H Lactic Acid Calcium 7.6 L Ferritin AST Magnesium Lactate Dehydrogenase C-Reactive Protein 3.30 H Total Protein Albumin Qkmjf-1-Ptwevwkwk Czdoc-7-Bunmzlotd PEP Interpretation Triglycerides TSH CHICA Screen Complement C4 Coronavirus (PCR) 01/23/20 01/23/20 01/23/20 12:29 17:57 22:15 WBC 12.8 H RBC Hgb 9.7 L Hct MCV 77 L MCH 25 L RDW Plt Count Lymph % (Auto) Mcdowell % (Auto) 9.1 H Mcdowell # Mcdowell # (Auto) 1.2 H Seg Neutrophils % Seg Neuts % (Manual) Lymphocytes % (Manual) Seg Neutrophils # 8.6 H Seg Neutrophils # Man Lymphocytes # (Manual) D-Dimer ABG pH POC ABG pCO2 POC ABG pO2 ABG pO2 ABG O2 Saturation ABG Base Excess ABG Oxyhemoglobin ABG HCO3 ABG Hemoglobin Oxyhemoglobin Sodium Potassium Chloride Carbon Dioxide BUN Creatinine Glucose POC Glucose 258 H 248 H Lactic Acid Calcium Ferritin AST Magnesium Lactate Dehydrogenase C-Reactive Protein Total Protein Albumin Bopip-5-Aanremwcx Zcdsi-5-Czuqtpziv PEP Interpretation Triglycerides TSH CHICA Screen Complement C4 Coronavirus (PCR) 01/23/20 01/24/20 01/24/20 23:28 06:00 06:00 WBC 12.4 H RBC Hgb 9.3 L Hct 28.6 L MCV 77 L MCH 25 L RDW Plt Count Lymph % (Auto) Mcdowell % (Auto) 8.7 H Mcdowell # Mcdowell # (Auto) 1.1 H Seg Neutrophils % 71.2 H Seg Neuts % (Manual) Lymphocytes % (Manual) Seg Neutrophils # 8.8 H Seg Neutrophils # Man Lymphocytes # (Manual) D-Dimer ABG pH POC ABG pCO2 POC ABG pO2 ABG pO2 ABG O2 Saturation ABG Base Excess ABG Oxyhemoglobin ABG HCO3 ABG Hemoglobin Oxyhemoglobin Sodium Potassium 3.4 L Chloride 107.3 H Carbon Dioxide BUN Creatinine Glucose POC Glucose 200 H Lactic Acid Calcium Ferritin AST Magnesium Lactate Dehydrogenase C-Reactive Protein Total Protein Albumin Apfyf-9-Dexycpnsv Tvcyp-0-Kmtnqyjln PEP Interpretation Triglycerides TSH CHICA Screen Complement C4 Coronavirus (PCR) 01/24/20 01/24/20 01/24/20 10:02 12:31 17:59 WBC RBC Hgb Hct MCV MCH RDW Plt Count Lymph % (Auto) Mcdowell % (Auto) Mcdowell # Mcdowell # (Auto) Seg Neutrophils % Seg Neuts % (Manual) Lymphocytes % (Manual) Seg Neutrophils # Seg Neutrophils # Man Lymphocytes # (Manual) D-Dimer ABG pH POC ABG pCO2 POC ABG pO2 ABG pO2 ABG O2 Saturation ABG Base Excess ABG Oxyhemoglobin ABG HCO3 ABG Hemoglobin Oxyhemoglobin Sodium Potassium Chloride Carbon Dioxide BUN Creatinine Glucose POC Glucose 161 H 252 H 182 H Lactic Acid Calcium Ferritin AST Magnesium Lactate Dehydrogenase C-Reactive Protein Total Protein Albumin Rfzsa-1-Onxdekssa Cwdat-1-Pvussolgd PEP Interpretation Triglycerides TSH CHICA Screen Complement C4 Coronavirus (PCR) 01/25/20 01/25/20 00:21 05:43 WBC RBC Hgb Hct MCV MCH RDW Plt Count Lymph % (Auto) Mcdowell % (Auto) Mcdowell # Mcdowell # (Auto) Seg Neutrophils % Seg Neuts % (Manual) Lymphocytes % (Manual) Seg Neutrophils # Seg Neutrophils # Man Lymphocytes # (Manual) D-Dimer ABG pH POC ABG pCO2 POC ABG pO2 ABG pO2 ABG O2 Saturation ABG Base Excess ABG Oxyhemoglobin ABG HCO3 ABG Hemoglobin Oxyhemoglobin Sodium Potassium Chloride Carbon Dioxide BUN Creatinine Glucose POC Glucose 125 H 132 H Lactic Acid Calcium Ferritin AST Magnesium Lactate Dehydrogenase C-Reactive Protein Total Protein Albumin Emttu-6-Bfarzabzs Bcrrt-9-Nirmfylyh PEP Interpretation Triglycerides TSH CHICA Screen Complement C4 Coronavirus (PCR) Allied health notes reviewed: RT
--- NOTE | 2020-01-25 12:09 | Progress Note ---
Assessment and Plan Cultures: Blood culture 01/11/2020 no growth today Urine culture 01/11/2020 10-100,000 normal skin cristina Tracheal aspirate a 01/13/2020 no growth 01/22/2020 Blood culture: no growth A/P: 39-year-old female past medical history morbid obesity, diabetes admitted with severe COVID-19 pneumonia. #Sepsis: secondary to COVID-19 pneumonia. New fever being worked up. No clear source found yet. #Acute hypoxemic respiratory failure: Likely secondary to COVID-19 infection. Extubated 01/24/2020. #COVID-19 pneumonia: Very high d-dimer on admission. Completed ceftriaxone. Completed Remdesivir. Markers are slowly improving. D-dimer improving. Completed steroids. #Morbid obesity: BMI=52. Associated with worse COVID-19 outcomes #Transaminitis: Likely related to COVID-19. Improving. #ARACELI: Resolved #Bradycardia: Resolved. Recs: -Completed steroids -fevers better, continue IV Cefepime + Vancomycin for now, if patient remains afebrile, will d/c abx after 5 days are complete -anticoagulation per protocol based on d-dimer -recheck markers in AM Lynn Song MD, FACP [facility] C: [phone] O: [phone] F: [phone] Subjective Date of service: 01/25/20 Principal diagnosis: Ac. hypoxemic resp failure; COVID infection; PNA; ARACELI; Thrombocytopenia Interval history: One low grade fever. Weaned to HFNC. Objective - Exam Narrative Exam: Physical Exam (reviewed in chart due to PPE conservation and minimize risk of transmission) Constitutional: limited due to PPE conservation strategy Head, Ears, Nose: limited due to PPE conservation strategy Eyes: limited due to PPE conservation strategy Neck: limited due to PPE conservation strategy Oral: limited due to PPE conservation strategy Cardiovascular: limited due to PPE conservation strategy Respiratory: limited due to PPE conservation strategy GI: limited due to PPE conservation strategy Musculoskeletal: limited due to PPE conservation strategy Skin: limited due to PPE conservation strategy Hem/Lymphatic: limited due to PPE conservation strategy Psych: limited due to PPE conservation strategy Neurological: limited due to PPE conservation strategy - Constitutional Vitals: Vital Signs Temp Pulse Resp BP Pulse Ox 99.3 F 108 H 31 H 151/84 99 01/25/20 12:00 01/25/20 12:00 01/25/20 12:00 01/25/20 12:00 01/25/20 12:00 Temperature -Last 24 Hours Temperature 99.3 F Temperature 99.6 F Temperature 99.2 F Temperature 98.9 F - Labs CBC & Chem 7: 01/24/20 06:00 01/24/20 06:00 Labs: Abnormal lab results 01/24/20 01/24/20 01/24/20 Range/Units 10:02 12:31 17:59 POC Glucose 161 H 252 H 182 H (70-105) 01/25/20 01/25/20 Range/Units 00:21 05:43 POC Glucose 125 H 132 H (70-105)
[2020-01-25] MEDS: ENOXAPARIN 40 MG/0.4 ML INJ SUB-Q SCH (22:16)
[2020-01-26] MEDS: INSULIN LISPRO 100 UNIT/ML VIAL 3 mL SUB-Q SCH ×3 (00:43→12:07)
[2020-01-26] MEDS: VANCOMYCIN 1,750 MG in SODIUM CHLORIDE 0.9% 500 ML 500 ML IV SCH ×2 (04:17→16:29)
[2020-01-26 06:21] LABS: C-Reactive Protein 8.9 mg/dL (0.00-1.30)
[2020-01-26] MEDS: hydrALAZINE 25 MG TAB PO SCH ×3 (06:34→21:18)
--- NOTE | 2020-01-26 10:07 | Progress Note ---
Assessment and Plan Subjective Date of service: 01/21/20 Principal diagnosis: Ac. hypoxemic resp failure; COVID infection; PNA; ARACELI; Thrombocytopenia Interval history: Assessment and plan Acute hypoxic respiratory failure. secondary to COVID-19 infection. Patient remains on mechanical ventilation. Pulmonary following. Patient is weaned and is on nasal cannula oxygen Will transfer to floor COVID-19 pneumonia. Patient was initially diagnosed 8 days prior to admission. Inflammatory markers reviewed. ID following. Continue dexamethasone 6 mg IV for completion of 10 days (day 9 of 10). Treated with remdesivir for 4 days and stopped on 01/17/2020 per ID recommendation because of bradycardia. Continue to trend inflammatory markers. Continue full dose anticoagulation given the high d-dimer. Sepsis. Etiology secondary to above. Off antibiotics Morbid obesity. Counseling once patient is extubated Severe bradycardia : Resolved. cardiology consult note reviewed Likely secondary to Decadron/ ? remdesivir No further recommendations Elevated LFTs/transaminitis.-Improved Etiology likely secondary to sepsis/COVID-19 Acute kidney injury. Improved Etiology secondary to sepsis/ATN. Discussed with Dr. Sheikh. Nephrology signed off Hypernatremia Secondary to dehydration Resolved Serum sodium down to 146 Hyperkalemia. Resolved Etiology likely secondary to above. Hypertension Patient on oral blood pressure medication Will transfer to floor Subjective Date of service: 01/26/20 Principal diagnosis: Ac. hypoxemic resp failure; COVID infection; PNA; ARACELI; Thrombocytopenia Interval history: History of present illness: 39 YO Female with MO, Obesity Hypoventilation Syndrome, DM, Asthma presents to ED for evaluation. Patient states that she has experienced shortness of breath over the past 3 days with worsening symptoms over the past 1 day. Patient also acknowledges nonproductive cough, malaise, weakness, fatigue, decreased exercise tolerance, subjective fever and body aches. Patient states that she tested positive for coronavirus 8 days ago and has experienced worsening symptoms over the past 3 days. EMS was notified and upon arrival the patient was found to be in distress. Patient placed on submental oxygen and transported to [facility] for further care and evaluation. Patient seen and evaluated in the emergency department. Lab and imaging studies reviewed. Patient found to have a pulse oximetry of 80% on room air which is consistent with acute hypoxemic respiratory failure as well as a fever with a temperature of 101.3 F. Patient underwent chest x-ray which revealed bilateral pneumonia which was complicated by sepsis. Patient admitted to medical floor and initiated on pneumonia protocol as well as COVID-19 protocol as well as sepsis protocol. Patient denies chills, chest pain, palpitations, productive cough, skin rash, recent ill contacts. Patient acknowledges positive coronavirus infection. No prior admission for review. All medication listed at time of admission has been reconciled. Coronavirus PCR has been ordered and is pending at time of admission. 01/16/2020; patient is still on mechanical ventilation FiO2 40, PEEP 14, patient is on fentanyl, Versed, propofol. Patient proned. We will continue to monitor. Patient is off IV antibiotics. Treated for 5 days with IV ceftriaxone. ID, nephrology and pulmonary consult appreciated 01/17/2020; patient is still on mechanical ventilation FiO2 40, PEEP 14, patient is on fentanyl, Versed, propofol. Patient proned. We will continue to monitor. Patient is off IV antibiotics. Treated for 5 days with IV ceftriaxone. ID, nephrology and pulmonary consult appreciated. Patient has elevated sodium level and advised to increase free water intake through the NG tube feeding. 01/18/2020; patient is still on mechanical ventilation with FiO2 of 40 and PEEP of 14 patient is on fentanyl and Versed for sedation. Patient is on dexamethasone day 7 and probably severe was stopped yesterday after fourth dose per ID recommendation, patient is bradycardic. Cardiology was consulted and recommend to follow her closely. If heart rates below 40 we want to give her atropine. I discussed the management plan with her father Mr. Baxter in detail at [phone]. Mr. Baxter said his daughter was suffering from asthma and bipolar disorder. 01/19/20; patient is on mechanical ventilation FiO2 of 35 and PEEP of 8, patient is on fentanyl and Versed for sedation. Patient is on dexamethasone day 8. From the severe discontinued after she took for 4 days per ID recommendation due to bradycardia. Cardiology and nephrology consult appreciated. Discussed with her father in detail about the management plan on 01/18/2020. Continue with the same management. Vent management as per binding bench worker. 01/19 patient remains on vent, on FiO2 of 30% and PEEP of 8. She is on Diprivan and fentanyl. Per discussion with RN ,patient is anxious and intermittently agitated. Patient is awake and alert. Unable to perform review of systems secondary to patient being intubated. All interdisciplinary notes reviewed Lab results reviewed 01/20 no acute events overnight, groggy secondary to sedation, opens eyes to verbal stimulus, yesterday's events noted, BP now well controlled with heart rate also in the normal range. Will adjust blood pressure medication 01/22/20 no acute events overnight, opens eyes to verbal stimulus, yesterday's events noted, BP now well controlled with heart rate also in the normal range. Will adjust blood pressure medication 01/23/2020 Weaning in progress 01/24/2020 Extubated On BiPAP On nasal cannula oxygen 01/26/2020 on nasal cannula oxygen Objective - Constitutional Vitals: Vital Signs - 12hr 01/25/20 01/25/20 01/25/20 22:07 22:17 22:31 Temperature Pulse Rate 107 H 107 H 109 H Pulse Rate [ From Monitor] Respiratory 20 26 H Rate Blood Pressure 186/93 186/93 186/93 O2 Sat by Pulse 99 100 Oximetry 01/25/20 01/25/20 01/25/20 23:01 23:31 23:36 Temperature 98.9 F Pulse Rate 115 H 115 H Pulse Rate [ From Monitor] Respiratory 20 22 Rate Blood Pressure 170/85 170/85 O2 Sat by Pulse 98 99 Oximetry 01/26/20 01/26/20 01/26/20 00:00 00:01 00:31 Temperature Pulse Rate 117 H 118 H 117 H Pulse Rate [ 117 H From Monitor] Respiratory 24 29 H 22 Rate Blood Pressure 177/74 177/74 O2 Sat by Pulse 99 97 99 Oximetry 01/26/20 01/26/20 01/26/20 01:00 01:24 01:31 Temperature Pulse Rate 119 H 119 H 118 H Pulse Rate [ From Monitor] Respiratory 19 24 24 Rate Blood Pressure 180/86 180/86 O2 Sat by Pulse 98 100 99 Oximetry 01/26/20 01/26/20 01/26/20 02:01 02:22 02:31 Temperature Pulse Rate 114 H 114 H 98 H Pulse Rate [ From Monitor] Respiratory 25 H 26 H Rate Blood Pressure 181/84 181/84 181/84 O2 Sat by Pulse 97 97 Oximetry 01/26/20 01/26/20 01/26/20 03:01 03:29 03:31 Temperature 98.9 F Pulse Rate 103 H 103 H Pulse Rate [ From Monitor] Respiratory 12 27 H Rate Blood Pressure 146/71 146/71 O2 Sat by Pulse 96 99 Oximetry 01/26/20 01/26/20 01/26/20 04:00 04:31 05:00 Temperature Pulse Rate 105 H 119 H 110 H Pulse Rate [ 106 H From Monitor] Respiratory 26 H 22 18 Rate Blood Pressure 159/75 159/75 146/74 O2 Sat by Pulse 97 100 97 Oximetry 01/26/20 01/26/20 01/26/20 05:31 06:00 06:31 Temperature Pulse Rate 106 H 111 H Pulse Rate [ From Monitor] Respiratory 23 29 H Rate Blood Pressure 146/74 137/83 146/74 O2 Sat by Pulse 99 97 99 Oximetry 01/26/20 01/26/20 01/26/20 06:34 07:01 07:31 Temperature Pulse Rate 114 H 117 H Pulse Rate [ From Monitor] Respiratory 12 17 Rate Blood Pressure 137/83 137/83 137/83 O2 Sat by Pulse 99 98 Oximetry 01/26/20 01/26/20 01/26/20 08:00 08:01 08:20 Temperature 100.5 F H Pulse Rate 104 H 104 H Pulse Rate [ 114 H From Monitor] Respiratory 30 H 28 H Rate Blood Pressure 137/83 O2 Sat by Pulse 100 99 100 Oximetry 01/26/20 01/26/20 08:31 09:01 Temperature Pulse Rate 107 H 117 H Pulse Rate [ From Monitor] Respiratory 39 H 37 H Rate Blood Pressure 137/83 137/83 O2 Sat by Pulse 99 100 Oximetry General appearance: Present: no acute distress, well-nourished - EENT Eyes: PERRL, EOM intact ENT: hearing intact, clear oral mucosa Ears: bilateral: normal - Neck Neck: supple, normal ROM - Respiratory Respiratory effort: normal Respiratory: bilateral: CTA - Breasts Breasts: normal - Cardiovascular Rhythm: regular Heart Sounds: Present: S1 & S2. Absent: gallop, rub Extremities: pulses intact, No edema, normal color, Full ROM - Gastrointestinal General gastrointestinal: Present: soft, non-tender, non-distended, normal bowel sounds - Genitourinary Female genitourinary: normal - Integumentary Integumentary: clear, warm, dry - Musculoskeletal Musculoskeletal: 1, strength equal bilaterally - Neurologic Neurologic: moves all extremities - Psychiatric Psychiatric: memory intact, appropriate mood/affect, intact judgment & insight - Labs CBC & Chem 7: 01/24/20 06:00 01/24/20 06:00 Labs: Abnormal lab results 01/25/20 01/25/20 01/26/20 Range/Units 12:01 18:23 00:20 D-Dimer (0-234) ng/mlDDU POC Glucose 215 H 213 H 173 H (70-105) Ferritin (10.0-200.0) ng/mL Lactate Dehydrogenase (91-180) units/L C-Reactive Protein (0.00-1.30) mg/dL 01/26/20 01/26/20 01/26/20 Range/Units 04:43 04:43 04:43 D-Dimer 864.61 H (0-234) ng/mlDDU POC Glucose (70-105) Ferritin 267.6 H (10.0-200.0) ng/mL Lactate Dehydrogenase 319 H (91-180) units/L C-Reactive Protein 8.90 H (0.00-1.30) mg/dL 01/26/20 Range/Units 05:45 D-Dimer (0-234) ng/mlDDU POC Glucose 131 H (70-105) Ferritin (10.0-200.0) ng/mL Lactate Dehydrogenase (91-180) units/L C-Reactive Protein (0.00-1.30) mg/dL
[2020-01-26] MEDS: QUEtiapine 200 MG TAB PO SCH ×2 (10:27→21:15)
[2020-01-26] MEDS: clonazePAM 0.5 MG TAB PO SCH ×2 (10:27→21:15)
[2020-01-26] MEDS: CEFEPIME/NS 2 GM/100 ML 2 GM/100 ML BAG IV SCH ×2 (10:28→21:14)
[2020-01-26] MEDS: INSULIN GLARGINE 100 UNITS/ML SUB-Q SCH (10:28)
[2020-01-26] MEDS: FAMOTIDINE 20 MG TAB PO SCH ×2 (10:28→21:15)
[2020-01-26] MEDS: cloNIDine 0.1 MG TAB PO SCH ×2 (10:28→21:15)
[2020-01-26 11:06] LABS: Basophils % (Auto) 0.4 % (0.0-1.8); Eosinophils # (Auto) 0.2 K/mm3 (0.0-0.4); Eosinophils % (Auto) 1.7 % (0.0-4.3); Hematocrit 27.1 % (30.3-42.9); Hemoglobin 8.8 gm/dl (10.1-14.3); Lymphocytes # (Auto) 1.7 K/mm3 (1.2-5.4); Lymphocytes % (Auto) 16.1 % (13.4-35.0); Mean Corpuscular HGB Conc 32 % (30-34); Mean Corpuscular Volume 77 fl (79-97); Monocytes # (Auto) 0.8 K/mm3 (0.0-0.8); Monocytes % (Auto) 7.8 % (0.0-7.3); Platelet Count 321 K/mm3 (140-440); Red Blood Count 3.51 M/mm3 (3.65-5.03); Red Cell Distribution Width 15.2 % (13.2-15.2)
[2020-01-26 11:30] LABS: Alanine Aminotransferase 81 units/L (7-56); Albumin 2.6 g/dL (3.9-5); Blood Urea Nitrogen 14 mg/dL (7-17); Calcium 8.9 mg/dL (8.4-10.2); Hemolysis Index 1
[2020-01-26 11:36] LABS: BUN/Creatinine Ratio 20
[2020-01-26] MEDS: QUEtiapine 100 MG TAB PO SCH (11:38)
--- NOTE | 2020-01-26 14:04 | Progress Note ---
Assessment and Plan Acute hypoxemic respiratory failure orally intubated on MVS Severe COVID infection Multifocal pneumonia Extreme obesity ARACELI- vasomotor nephropathy/COVID Thrombocytopenia Hyperglycemia Hypernatremia - [employer] evaluation and advance diet as tolerated - VTE w/up negative and on VTE prophylaxis dose of enoxaparin now - continue care as below otherwise; - continue Seroquel 300 mg bid - continue hydralazine 100 mg p.o. q8h - continue to avoid Qt prolonging drugs - [employer] evaluatioon and advance diet as tolerated - continue to avoid nephrotoxins, closely monitor renal function, renally dose all medications - CXR, ABG prn - continue bronchodilators with pulmonary hygiene per RT - prn analgesia per pain score - Continue to wean supplemental oxygen for target O2 sats > 92% - Anti-infective's per ID recommendations - Accuchecks with glycemic control for target blood glucose of <180 mg/dL; avoid hypoglycemia - Maintenance of sleep-wake cycle, avoid delirium - Aspiration precautions, HOB >40 - Stress ulcer prophylaxis - Mobility protocol, off loading and skin assessment for pressure ulcer prevention - Monitor hemodynamics closely - Supportive transfusions as indicated to keep HgB >7g/dL COVID SPECIFIC INTERVENTIONS: - Airborne, contact isolation for COVID per facility protocols - s/p IV steroids-dexamethasone - Trend d-dimer,and other inflammatory markers per facility protocol - completed Remdesivir dosing - completed ceftriaxone 2 gm IV qday and azithromycin 500 mg PO qday for empiric CAP coverage - Monitoring QTc ...... re-evaluate in am & prn Subjective Date of service: 01/26/20 Principal diagnosis: Ac. hypoxemic resp failure; COVID infection; PNA; ARACELI; Thrombocytopenia Interval history: Patient is seen today for: Acute hypoxemic respiratory failure; Severe COVID infection; Multifocal pneumonia; Extreme obesity; ARACELI; Thrombocytopenia Seen and examined at bedside; 24hour events reviewed; nursing and respiratory care staff consulted; no adverse overnight events reported to me; resting peacefully in bed; remains on supplemental oxygen but FiO2 down to 40% Objective Vital Signs - 12hr 01/26/20 01/26/20 01/26/20 02:22 02:31 03:01 Temperature Pulse Rate 114 H 98 H 103 H Pulse Rate [ From Monitor] Respiratory 26 H 12 Rate Blood Pressure 181/84 181/84 146/71 O2 Sat by Pulse 97 96 Oximetry 01/26/20 01/26/2001/25/20 03:29 03:31 04:00 Temperature 98.9 F Pulse Rate 103 H 105 H Pulse Rate [ 106 H From Monitor] Respiratory 27 H 26 H Rate Blood Pressure 146/71 159/75 O2 Sat by Pulse 99 97 Oximetry 01/26/20 01/26/20 01/26/20 04:31 05:00 05:31 Temperature Pulse Rate 119 H 110 H 106 H Pulse Rate [ From Monitor] Respiratory 22 18 23 Rate Blood Pressure 159/75 146/74 146/74 O2 Sat by Pulse 100 97 99 Oximetry 01/26/20 01/26/20 01/26/20 06:00 06:31 06:34 Temperature Pulse Rate 111 H Pulse Rate [ From Monitor] Respiratory 29 H Rate Blood Pressure 137/83 146/74 137/83 O2 Sat by Pulse 97 99 Oximetry 01/26/20 01/26/20 01/26/20 07:01 07:31 08:00 Temperature 100.5 F H Pulse Rate 114 H 117 H 104 H Pulse Rate [ 114 H From Monitor] Respiratory 12 17 30 H Rate Blood Pressure 137/83 137/83 O2 Sat by Pulse 99 98 100 Oximetry 01/26/20 01/26/20 01/26/20 08:01 08:20 08:31 Temperature Pulse Rate 104 H 107 H Pulse Rate [ From Monitor] Respiratory 28 H 39 H Rate Blood Pressure 137/83 137/83 O2 Sat by Pulse 99 100 99 Oximetry 01/26/20 01/26/20 01/26/20 09:01 09:31 10:00 Temperature Pulse Rate 117 H 112 H 110 H Pulse Rate [ From Monitor] Respiratory 37 H 30 H 42 H Rate Blood Pressure 137/83 189/83 163/83 O2 Sat by Pulse 100 99 98 Oximetry 01/26/20 01/26/20 01/26/20 10:28 10:31 11:01 Temperature Pulse Rate 114 H 117 H 116 H Pulse Rate [ From Monitor] Respiratory 41 H 36 H Rate Blood Pressure 163/83 189/83 189/83 O2 Sat by Pulse 100 99 Oximetry 01/26/20 01/26/20 01/26/20 11:31 12:00 12:01 Temperature 99.6 F Pulse Rate 113 H 114 H 111 H Pulse Rate [ 114 H From Monitor] Respiratory 42 H 28 H 40 H Rate Blood Pressure 189/83 189/83 O2 Sat by Pulse 98 98 98 Oximetry Constitutional: no acute distress, alert, other (Morbidly obese female with mildly increased respiratory effort at rest) Eyes: non-icteric ENT: oropharynx moist, other (extubated) Neck: supple, no lymphadenopathy, no JVD Effort: mildly labored Ascultation: Bilateral: diminished breath sounds, rhonchi Percussion: Bilateral: not dull Cardiovascular: regular rate and rhythm, other Gastrointestinal: normoactive bowel sounds, soft, non-tender, non-distended (protuberant) Integumentary: normal Extremities: no cyanosis, no edema, pulses normal, no ischemia or petechiae Neurologic: normal mental status, non-focal exam, pupils equal and round, CN II-XII normal, motor strength normal and Psychiatric: mood appropriate, affect normal CBC and BMP: 01/26/20 10:37 01/26/20 10:37 ABG, PT/INR, D-dimer: ABG ABG pH 7.46 (7.320-7.450) H 01/22/20 03:35 POC ABG pCO2 36.6 mmHg (32.0-48.0) 01/22/20 03:35 ABG pCO2 46.1 mm Hg 01/20/20 04:21 POC ABG pO2 84.0 mmHg (83-108) 01/22/20 03:35 ABG pO2 81.7 mm Hg (80.0-90.0) 01/20/20 04:21 POC ABG HCO3 25.4 01/22/20 03:35 ABG O2 Saturation 96.5 % (95.0-99.0) 01/20/20 04:21 PT/INR, D-dimer D-Dimer 864.61 ng/mlDDU (0-234) H 01/26/20 04:43 Abnormal lab findings: Abnormal Labs 01/11/20 01/11/20 01/11/20 17:22 17:22 17:22 WBC RBC Hgb Hct MCV MCH RDW Plt Count Lymph % (Auto) Emery % (Auto) Emery # Emery # (Auto) Seg Neutrophils % Seg Neuts % (Manual) Lymphocytes % (Manual) Seg Neutrophils # Seg Neutrophils # Man Lymphocytes # (Manual) D-Dimer 622.52 H ABG pH POC ABG pCO2 POC ABG pO2 ABG pO2 ABG O2 Saturation ABG Base Excess ABG Oxyhemoglobin ABG HCO3 ABG Hemoglobin Oxyhemoglobin Sodium Potassium Chloride 97.6 L Carbon Dioxide 18 L BUN Creatinine Glucose 199 H POC Glucose Lactic Acid 2.20 H* Calcium Ferritin AST 68 H Magnesium Lactate Dehydrogenase ALT C-Reactive Protein Total Protein Albumin 3.0 L Daadx-0-Miqlpeqhl Aedxq-0-Yzjvyzjbc PEP Interpretation Triglycerides TSH CHICA Screen Complement C4 Coronavirus (PCR) 01/11/20 01/11/20 01/11/20 17:22 17:22 23:29 WBC RBC Hgb Hct MCV MCH RDW Plt Count Lymph % (Auto) Emery % (Auto) Emery # Emery # (Auto) Seg Neutrophils % Seg Neuts % (Manual) Lymphocytes % (Manual) Seg Neutrophils # Seg Neutrophils # Man Lymphocytes # (Manual) D-Dimer ABG pH POC ABG pCO2 POC ABG pO2 ABG pO2 ABG O2 Saturation ABG Base Excess ABG Oxyhemoglobin ABG HCO3 ABG Hemoglobin Oxyhemoglobin Sodium Potassium Chloride Carbon Dioxide BUN Creatinine Glucose 202 H POC Glucose Lactic Acid 2.10 H* Calcium Ferritin 270.3 H AST Magnesium Lactate Dehydrogenase 610 H ALT C-Reactive Protein 23.80 H Total Protein Albumin Tynid-8-Clixjabyj Zzsdv-7-Uhvkcasxf PEP Interpretation Triglycerides TSH CHICA Screen Complement C4 Coronavirus (PCR) 01/12/20 01/12/20 01/12/20 07:07 07:07 09:00 WBC RBC 5.31 H Hgb Hct MCV 76 L MCH 25 L RDW 15.5 H Plt Count Lymph % (Auto) 11.2 L Emery % (Auto) Emery # Emery # (Auto) Seg Neutrophils % 85.2 H Seg Neuts % (Manual) Lymphocytes % (Manual) Seg Neutrophils # 9.2 H Seg Neutrophils # Man Lymphocytes # (Manual) D-Dimer ABG pH POC ABG pCO2 POC ABG pO2 ABG pO2 ABG O2 Saturation ABG Base Excess ABG Oxyhemoglobin ABG HCO3 ABG Hemoglobin Oxyhemoglobin Sodium Potassium Chloride Carbon Dioxide 21 L BUN 23 H Creatinine Glucose 206 H POC Glucose Lactic Acid Calcium Ferritin AST Magnesium Lactate Dehydrogenase ALT C-Reactive Protein Total Protein Albumin Oogrm-9-Fdadjynnm Dpdey-9-Tuotmvfjr PEP Interpretation Triglycerides TSH CHICA Screen Complement C4 Coronavirus (PCR) Positive A 01/13/20 01/13/20 01/13/20 01:02 04:45 05:10 WBC RBC Hgb Hct MCV MCH RDW Plt Count Lymph % (Auto) Emery % (Auto) Emery # Emery # (Auto) Seg Neutrophils % Seg Neuts % (Manual) Lymphocytes % (Manual) Seg Neutrophils # Seg Neutrophils # Man Lymphocytes # (Manual) D-Dimer > 74357 H ABG pH 7.19 L POC ABG pCO2 56.2 H POC ABG pO2 44.3 L 62.5 L ABG pO2 ABG O2 Saturation ABG Base Excess ABG Oxyhemoglobin 77.5 L 86.5 L ABG HCO3 ABG Hemoglobin Oxyhemoglobin Sodium Potassium Chloride Carbon Dioxide BUN Creatinine Glucose POC Glucose Lactic Acid Calcium Ferritin AST Magnesium Lactate Dehydrogenase ALT C-Reactive Protein Total Protein Albumin Isofv-9-Fzdydoceu Qjxgo-6-Bkexnypog PEP Interpretation Triglycerides TSH CHICA Screen Complement C4 Coronavirus (PCR) 01/13/20 01/13/20 01/13/20 05:10 05:54 12:07 WBC RBC Hgb Hct MCV MCH RDW Plt Count Lymph % (Auto) Emery % (Auto) Emery # Emery # (Auto) Seg Neutrophils % Seg Neuts % (Manual) Lymphocytes % (Manual) Seg Neutrophils # Seg Neutrophils # Man Lymphocytes # (Manual) D-Dimer ABG pH POC ABG pCO2 POC ABG pO2 ABG pO2 ABG O2 Saturation ABG Base Excess ABG Oxyhemoglobin ABG HCO3 ABG Hemoglobin Oxyhemoglobin Sodium Potassium Chloride Carbon Dioxide BUN Creatinine Glucose POC Glucose 356 H 309 H Lactic Acid Calcium Ferritin AST Magnesium Lactate Dehydrogenase 999 H ALT C-Reactive Protein Total Protein Albumin Mhuyk-1-Gzdsimplv Chdis-4-Rubetvuze PEP Interpretation Triglycerides TSH CHICA Screen Complement C4 Coronavirus (PCR) 01/13/20 01/13/20 01/13/20 12:54 18:46 18:50 WBC 14.0 H RBC Hgb Hct MCV 76 L MCH 25 L RDW 15.8 H Plt Count 113 L Lymph % (Auto) Emery % (Auto) Emery # Emery # (Auto) Seg Neutrophils % Seg Neuts % (Manual) 88.0 H Lymphocytes % (Manual) 2.0 L Seg Neutrophils # Seg Neutrophils # Man 12.3 H Lymphocytes # (Manual) 0.3 L D-Dimer ABG pH 7.290 L POC ABG pCO2 POC ABG pO2 ABG pO2 60.2 L ABG O2 Saturation 88.6 L ABG Base Excess -2.7 L ABG Oxyhemoglobin ABG HCO3 ABG Hemoglobin Oxyhemoglobin 87.1 L Sodium Potassium Chloride Carbon Dioxide BUN Creatinine Glucose POC Glucose 268 H Lactic Acid Calcium Ferritin AST Magnesium Lactate Dehydrogenase ALT C-Reactive Protein Total Protein Albumin Zkaki-3-Mushbzqvw Bsezw-6-Nemapwrwf PEP Interpretation Triglycerides TSH CHICA Screen Complement C4 Coronavirus (PCR) 01/13/20 01/14/20 01/14/20 23:53 00:31 03:13 WBC RBC Hgb Hct MCV MCH RDW Plt Count Lymph % (Auto) Emery % (Auto) Emery # Emery # (Auto) Seg Neutrophils % Seg Neuts % (Manual) Lymphocytes % (Manual) Seg Neutrophils # Seg Neutrophils # Man Lymphocytes # (Manual) D-Dimer ABG pH POC ABG pCO2 POC ABG pO2 ABG pO2 132.6 H ABG O2 Saturation ABG Base Excess -2.7 L ABG Oxyhemoglobin ABG HCO3 ABG Hemoglobin Oxyhemoglobin Sodium Potassium 5.3 H Chloride Carbon Dioxide BUN 55 H Creatinine 1.6 H Glucose 268 H POC Glucose 259 H Lactic Acid Calcium Ferritin AST 46 H Magnesium Lactate Dehydrogenase ALT C-Reactive Protein Total Protein 6.1 L Albumin 3.1 L Ffazg-7-Bsklxutpg Vftso-4-Lhsxkkbty PEP Interpretation Triglycerides TSH CHICA Screen Complement C4 Coronavirus (PCR) 01/14/20 01/14/20 01/14/20 05:23 06:06 09:47 WBC RBC Hgb Hct MCV MCH RDW Plt Count Lymph % (Auto) Emery % (Auto) Emery # Emery # (Auto) Seg Neutrophils % Seg Neuts % (Manual) Lymphocytes % (Manual) Seg Neutrophils # Seg Neutrophils # Man Lymphocytes # (Manual) D-Dimer > 55499 H ABG pH POC ABG pCO2 POC ABG pO2 ABG pO2 ABG O2 Saturation ABG Base Excess ABG Oxyhemoglobin ABG HCO3 ABG Hemoglobin Oxyhemoglobin Sodium Potassium 5.5 H Chloride 107.6 H Carbon Dioxide 21 L BUN 58 H Creatinine 1.7 H Glucose 231 H POC Glucose 231 H Lactic Acid Calcium Ferritin AST Magnesium Lactate Dehydrogenase ALT C-Reactive Protein Total Protein Albumin Rgywg-3-Fnrsvgwnm Pdigj-9-Rqgbpbefp PEP Interpretation Triglycerides TSH CHICA Screen Complement C4 Coronavirus (PCR) 01/14/20 01/14/20 01/14/20 09:47 12:20 16:00 WBC RBC Hgb Hct MCV MCH RDW Plt Count Lymph % (Auto) Emery % (Auto) Emery # Emery # (Auto) Seg Neutrophils % Seg Neuts % (Manual) Lymphocytes % (Manual) Seg Neutrophils # Seg Neutrophils # Man Lymphocytes # (Manual) D-Dimer ABG pH POC ABG pCO2 POC ABG pO2 ABG pO2 69.3 L ABG O2 Saturation 94.4 L ABG Base Excess ABG Oxyhemoglobin ABG HCO3 ABG Hemoglobin Oxyhemoglobin 92.7 L Sodium Potassium Chloride 107.2 H Carbon Dioxide 21 L BUN 63 H Creatinine 1.5 H Glucose 217 H POC Glucose 238 H Lactic Acid Calcium Ferritin AST Magnesium Lactate Dehydrogenase ALT C-Reactive Protein Total Protein 6.0 L Albumin 2.7 L Sondn-3-Nlvhrxdqs Nkevn-1-Bvpznxkkw PEP Interpretation Triglycerides TSH CHICA Screen Complement C4 Coronavirus (PCR) 01/14/20 01/14/20 01/14/20 18:24 19:01 23:50 WBC RBC Hgb Hct MCV MCH RDW Plt Count Lymph % (Auto) Emery % (Auto) Emery # Emery # (Auto) Seg Neutrophils % Seg Neuts % (Manual) Lymphocytes % (Manual) Seg Neutrophils # Seg Neutrophils # Man Lymphocytes # (Manual) D-Dimer ABG pH POC ABG pCO2 POC ABG pO2 ABG pO2 ABG O2 Saturation ABG Base Excess ABG Oxyhemoglobin ABG HCO3 ABG Hemoglobin Oxyhemoglobin Sodium 146 H Potassium 5.9 H Chloride 108.0 H Carbon Dioxide 20 L BUN 61 H Creatinine 1.4 H Glucose 254 H POC Glucose 228 H 321 H Lactic Acid Calcium Ferritin AST Magnesium Lactate Dehydrogenase ALT C-Reactive Protein Total Protein Albumin Tglyb-3-Eizmmirub Jkhmt-4-Inudenjdh PEP Interpretation Triglycerides TSH CHICA Screen Complement C4 Coronavirus (PCR) 01/14/20 01/14/20 01/14/20 Unknown Unknown Unknown WBC RBC Hgb Hct MCV MCH RDW Plt Count Lymph % (Auto) Emery % (Auto) Emery # Emery # (Auto) Seg Neutrophils % Seg Neuts % (Manual) Lymphocytes % (Manual) Seg Neutrophils # Seg Neutrophils # Man Lymphocytes # (Manual) D-Dimer ABG pH POC ABG pCO2 POC ABG pO2 ABG pO2 ABG O2 Saturation ABG Base Excess ABG Oxyhemoglobin ABG HCO3 ABG Hemoglobin Oxyhemoglobin Sodium Potassium Chloride Carbon Dioxide BUN Creatinine Glucose POC Glucose Lactic Acid Calcium Ferritin AST Magnesium Lactate Dehydrogenase ALT C-Reactive Protein Total Protein Albumin 2.8 L Byrmk-2-Gxtmcwjvn 0.6 H Ylplh-2-Iekuqfrzw 1.1 H PEP Interpretation see below H Triglycerides TSH CHICA Screen Positive H Complement C4 76 H Coronavirus (PCR) 01/15/20 01/15/20 01/15/20 03:37 03:57 03:57 WBC 14.9 H RBC Hgb Hct MCV 75 L MCH 25 L RDW 15.4 H Plt Count Lymph % (Auto) 8.6 L Emery % (Auto) Emery # 1.0 H Emery # (Auto) Seg Neutrophils % 84.2 H Seg Neuts % (Manual) Lymphocytes % (Manual) Seg Neutrophils # 12.5 H Seg Neutrophils # Man Lymphocytes # (Manual) D-Dimer ABG pH 7.480 H POC ABG pCO2 POC ABG pO2 76.7 L ABG pO2 ABG O2 Saturation ABG Base Excess ABG Oxyhemoglobin ABG HCO3 ABG Hemoglobin Oxyhemoglobin Sodium 152 H Potassium Chloride 113.0 H Carbon Dioxide BUN 52 H Creatinine Glucose 288 H POC Glucose Lactic Acid Calcium Ferritin AST Magnesium Lactate Dehydrogenase ALT C-Reactive Protein Total Protein Albumin Aselh-3-Pbzdbxnjt Cpecq-8-Ytortsril PEP Interpretation Triglycerides TSH CIHCA Screen Complement C4 Coronavirus (PCR) 01/15/20 01/15/20 01/15/20 05:50 11:56 14:35 WBC RBC Hgb Hct MCV MCH RDW Plt Count Lymph % (Auto) Emery % (Auto) Emery # Emery # (Auto) Seg Neutrophils % Seg Neuts % (Manual) Lymphocytes % (Manual) Seg Neutrophils # Seg Neutrophils # Man Lymphocytes # (Manual) D-Dimer ABG pH POC ABG pCO2 POC ABG pO2 ABG pO2 ABG O2 Saturation ABG Base Excess ABG Oxyhemoglobin ABG HCO3 ABG Hemoglobin Oxyhemoglobin Sodium Potassium Chloride Carbon Dioxide BUN Creatinine Glucose POC Glucose 259 H 162 H Lactic Acid Calcium Ferritin 332.4 H AST Magnesium Lactate Dehydrogenase ALT C-Reactive Protein Total Protein Albumin Iemzv-2-Tdxixewrc Ntuhe-8-Spfquepcd PEP Interpretation Triglycerides TSH CHICA Screen Complement C4 Coronavirus (PCR) 01/15/20 01/15/20 01/15/20 14:35 14:35 14:35 WBC RBC Hgb Hct MCV MCH RDW Plt Count Lymph % (Auto) Emery % (Auto) Emery # Emery # (Auto) Seg Neutrophils % Seg Neuts % (Manual) Lymphocytes % (Manual) Seg Neutrophils # Seg Neutrophils # Man Lymphocytes # (Manual) D-Dimer ABG pH POC ABG pCO2 POC ABG pO2 ABG pO2 ABG O2 Saturation ABG Base Excess ABG Oxyhemoglobin ABG HCO3 ABG Hemoglobin Oxyhemoglobin Sodium Potassium Chloride Carbon Dioxide BUN Creatinine Glucose POC Glucose Lactic Acid Calcium Ferritin AST Magnesium 3.00 H Lactate Dehydrogenase 747 H ALT C-Reactive Protein 7.60 H Total Protein Albumin Ulenw-1-Hdihfdgcj Glypf-4-Mmkemvyhx PEP Interpretation Triglycerides TSH 0.221 L CHICA Screen Complement C4 Coronavirus (PCR) 01/15/20 01/15/20 01/15/20 16:18 17:31 23:26 WBC RBC Hgb Hct MCV MCH RDW Plt Count Lymph % (Auto) Emery % (Auto) Emery # Emery # (Auto) Seg Neutrophils % Seg Neuts % (Manual) Lymphocytes % (Manual) Seg Neutrophils # Seg Neutrophils # Man Lymphocytes # (Manual) D-Dimer ABG pH 7.510 H POC ABG pCO2 POC ABG pO2 76.6 L ABG pO2 ABG O2 Saturation ABG Base Excess ABG Oxyhemoglobin ABG HCO3 ABG Hemoglobin Oxyhemoglobin Sodium Potassium Chloride Carbon Dioxide BUN Creatinine Glucose POC Glucose 239 H 226 H Lactic Acid Calcium Ferritin AST Magnesium Lactate Dehydrogenase ALT C-Reactive Protein Total Protein Albumin Wclus-7-Jouxwsmly Dhgad-4-Oudbahwku PEP Interpretation Triglycerides TSH CHICA Screen Complement C4 Coronavirus (PCR) 01/16/20 01/16/20 01/16/20 03:33 04:00 04:00 WBC 13.6 H RBC Hgb Hct MCV 74 L MCH 25 L RDW 15.4 H Plt Count Lymph % (Auto) Emery % (Auto) Emery # Emery # (Auto) Seg Neutrophils % Seg Neuts % (Manual) 91.0 H Lymphocytes % (Manual) 5.0 L Seg Neutrophils # Seg Neutrophils # Man 12.4 H Lymphocytes # (Manual) 0.7 L D-Dimer ABG pH 7.477 H POC ABG pCO2 POC ABG pO2 ABG pO2 ABG O2 Saturation ABG Base Excess ABG Oxyhemoglobin ABG HCO3 ABG Hemoglobin Oxyhemoglobin Sodium 151 H Potassium Chloride 113.8 H Carbon Dioxide BUN 45 H Creatinine Glucose 213 H POC Glucose Lactic Acid Calcium Ferritin AST Magnesium Lactate Dehydrogenase ALT C-Reactive Protein Total Protein Albumin Ogexo-7-Uvoctezfl Fqrta-6-Chcevgpwe PEP Interpretation Triglycerides TSH CHICA Screen Complement C4 Coronavirus (PCR) 01/16/20 01/16/20 01/16/20 05:45 12:02 17:27 WBC RBC Hgb Hct MCV MCH RDW Plt Count Lymph % (Auto) Emery % (Auto) Emery # Emery # (Auto) Seg Neutrophils % Seg Neuts % (Manual) Lymphocytes % (Manual) Seg Neutrophils # Seg Neutrophils # Man Lymphocytes # (Manual) D-Dimer ABG pH POC ABG pCO2 POC ABG pO2 ABG pO2 ABG O2 Saturation ABG Base Excess ABG Oxyhemoglobin ABG HCO3 ABG Hemoglobin Oxyhemoglobin Sodium Potassium Chloride Carbon Dioxide BUN Creatinine Glucose POC Glucose 202 H 186 H 240 H Lactic Acid Calcium Ferritin AST Magnesium Lactate Dehydrogenase ALT C-Reactive Protein Total Protein Albumin Tckro-7-Twaobzgxe Kwacw-7-Csostxbvz PEP Interpretation Triglycerides TSH CHICA Screen Complement C4 Coronavirus (PCR) 01/17/20 01/17/20 01/17/20 00:07 04:50 05:46 WBC RBC Hgb Hct MCV MCH RDW Plt Count Lymph % (Auto) Emery % (Auto) Emery # Emery # (Auto) Seg Neutrophils % Seg Neuts % (Manual) Lymphocytes % (Manual) Seg Neutrophils # Seg Neutrophils # Man Lymphocytes # (Manual) D-Dimer ABG pH 7.494 H POC ABG pCO2 POC ABG pO2 ABG pO2 73.4 L ABG O2 Saturation ABG Base Excess ABG Oxyhemoglobin ABG HCO3 ABG Hemoglobin Oxyhemoglobin 94.4 L Sodium Potassium Chloride Carbon Dioxide BUN Creatinine Glucose POC Glucose 207 H 170 H Lactic Acid Calcium Ferritin AST Magnesium Lactate Dehydrogenase ALT C-Reactive Protein Total Protein Albumin Lrelx-8-Xedofcncd Irllb-9-Wrhrptljv PEP Interpretation Triglycerides TSH CHICA Screen Complement C4 Coronavirus (PCR) 01/17/20 01/17/20 01/17/20 06:00 06:00 11:32 WBC 11.5 H RBC Hgb Hct MCV 75 L MCH 25 L RDW 15.5 H Plt Count Lymph % (Auto) Emery % (Auto) Emery # Emery # (Auto) Seg Neutrophils % Seg Neuts % (Manual) 81.0 H Lymphocytes % (Manual) 10.0 L Seg Neutrophils # Seg Neutrophils # Man 9.3 H Lymphocytes # (Manual) D-Dimer ABG pH POC ABG pCO2 POC ABG pO2 ABG pO2 ABG O2 Saturation ABG Base Excess ABG Oxyhemoglobin ABG HCO3 ABG Hemoglobin Oxyhemoglobin Sodium 151 H Potassium Chloride 113.6 H Carbon Dioxide BUN 40 H Creatinine Glucose 149 H POC Glucose 229 H Lactic Acid Calcium Ferritin AST Magnesium Lactate Dehydrogenase ALT C-Reactive Protein Total Protein Albumin Euagx-1-Znpzibnfr Jbqiq-7-Mwdtkfcsj PEP Interpretation Triglycerides TSH CHICA Screen Complement C4 Coronavirus (PCR) 01/17/20 01/17/20 01/17/20 13:40 13:40 13:40 WBC RBC Hgb Hct MCV MCH RDW Plt Count Lymph % (Auto) Emery % (Auto) Emery # Emery # (Auto) Seg Neutrophils % Seg Neuts % (Manual) Lymphocytes % (Manual) Seg Neutrophils # Seg Neutrophils # Man Lymphocytes # (Manual) D-Dimer 1878.79 H ABG pH POC ABG pCO2 POC ABG pO2 ABG pO2 ABG O2 Saturation ABG Base Excess ABG Oxyhemoglobin ABG HCO3 ABG Hemoglobin Oxyhemoglobin Sodium Potassium Chloride Carbon Dioxide BUN Creatinine Glucose POC Glucose Lactic Acid Calcium Ferritin 322.8 H AST Magnesium Lactate Dehydrogenase 587 H ALT C-Reactive Protein 4.60 H Total Protein Albumin Yxcsp-0-Fvfwkckfo Qrybz-4-Jcfsqmfrb PEP Interpretation Triglycerides TSH CHICA Screen Complement C4 Coronavirus (PCR) 01/17/20 01/17/20 01/17/20 17:45 21:30 23:53 WBC RBC Hgb Hct MCV MCH RDW Plt Count Lymph % (Auto) Emery % (Auto) Emery # Emery # (Auto) Seg Neutrophils % Seg Neuts % (Manual) Lymphocytes % (Manual) Seg Neutrophils # Seg Neutrophils # Man Lymphocytes # (Manual) D-Dimer ABG pH POC ABG pCO2 POC ABG pO2 ABG pO2 179.6 H ABG O2 Saturation 99.2 H ABG Base Excess ABG Oxyhemoglobin ABG HCO3 ABG Hemoglobin 11.8 L Oxyhemoglobin Sodium Potassium Chloride Carbon Dioxide BUN Creatinine Glucose POC Glucose 364 H 272 H Lactic Acid Calcium Ferritin AST Magnesium Lactate Dehydrogenase ALT C-Reactive Protein Total Protein Albumin Krigr-7-Fmmqhodds Xvihi-8-Lfiuqkuun PEP Interpretation Triglycerides TSH CHICA Screen Complement C4 Coronavirus (PCR) 01/18/20 01/18/20 01/18/20 03:40 04:00 05:00 WBC RBC Hgb Hct MCV MCH RDW Plt Count Lymph % (Auto) Emery % (Auto) Emery # Emery # (Auto) Seg Neutrophils % Seg Neuts % (Manual) Lymphocytes % (Manual) Seg Neutrophils # Seg Neutrophils # Man Lymphocytes # (Manual) D-Dimer ABG pH POC ABG pCO2 POC ABG pO2 ABG pO2 162.6 H ABG O2 Saturation ABG Base Excess ABG Oxyhemoglobin ABG HCO3 ABG Hemoglobin Oxyhemoglobin Sodium 150 H Potassium Chloride 113.4 H Carbon Dioxide BUN 44 H Creatinine Glucose 268 H POC Glucose Lactic Acid Calcium Ferritin AST Magnesium Lactate Dehydrogenase ALT C-Reactive Protein Total Protein Albumin Elclv-3-Npgfjnpfn Hvfkp-2-Qytuimklp PEP Interpretation Triglycerides 198 H TSH CHICA Screen Complement C4 Coronavirus (PCR) 01/18/20 01/18/20 01/18/20 05:54 11:21 17:27 WBC RBC Hgb Hct MCV MCH RDW Plt Count Lymph % (Auto) Emery % (Auto) Emery # Emery # (Auto) Seg Neutrophils % Seg Neuts % (Manual) Lymphocytes % (Manual) Seg Neutrophils # Seg Neutrophils # Man Lymphocytes # (Manual) D-Dimer ABG pH POC ABG pCO2 POC ABG pO2 ABG pO2 ABG O2 Saturation ABG Base Excess ABG Oxyhemoglobin ABG HCO3 ABG Hemoglobin Oxyhemoglobin Sodium Potassium Chloride Carbon Dioxide BUN Creatinine Glucose POC Glucose 271 H 244 H 232 H Lactic Acid Calcium Ferritin AST Magnesium Lactate Dehydrogenase ALT C-Reactive Protein Total Protein Albumin Ndakr-0-Mrbuqnexe Nqfpg-1-Qukgpqokx PEP Interpretation Triglycerides TSH CHICA Screen Complement C4 Coronavirus (PCR) 01/19/20 01/19/20 01/19/20 00:12 04:00 04:40 WBC RBC Hgb Hct MCV MCH RDW Plt Count Lymph % (Auto) Emery % (Auto) Emery # Emery # (Auto) Seg Neutrophils % Seg Neuts % (Manual) Lymphocytes % (Manual) Seg Neutrophils # Seg Neutrophils # Man Lymphocytes # (Manual) D-Dimer ABG pH POC ABG pCO2 POC ABG pO2 ABG pO2 117.2 H ABG O2 Saturation ABG Base Excess ABG Oxyhemoglobin ABG HCO3 ABG Hemoglobin 9.7 L Oxyhemoglobin Sodium 146 H Potassium Chloride 111.3 H Carbon Dioxide BUN 38 H Creatinine Glucose 168 H POC Glucose 143 H Lactic Acid Calcium Ferritin AST Magnesium Lactate Dehydrogenase ALT C-Reactive Protein Total Protein Albumin Bfnuu-8-Cmbysfcnu Cmtwk-7-Lixyuruje PEP Interpretation Triglycerides TSH CHICA Screen Complement C4 Coronavirus (PCR) 01/19/20 01/19/20 01/19/20 05:41 12:02 18:13 WBC RBC Hgb Hct MCV MCH RDW Plt Count Lymph % (Auto) Emery % (Auto) Emery # Emery # (Auto) Seg Neutrophils % Seg Neuts % (Manual) Lymphocytes % (Manual) Seg Neutrophils # Seg Neutrophils # Man Lymphocytes # (Manual) D-Dimer ABG pH POC ABG pCO2 POC ABG pO2 ABG pO2 ABG O2 Saturation ABG Base Excess ABG Oxyhemoglobin ABG HCO3 ABG Hemoglobin Oxyhemoglobin Sodium Potassium Chloride Carbon Dioxide BUN Creatinine Glucose POC Glucose 171 H 208 H 272 H Lactic Acid Calcium Ferritin AST Magnesium Lactate Dehydrogenase ALT C-Reactive Protein Total Protein Albumin Mgisx-4-Lykjxvufn Rqhag-0-Hudbxezax PEP Interpretation Triglycerides TSH [facility]ICA Screen Complement C4 Coronavirus (PCR) 01/20/20 01/20/20 01/20/20 00:13 04:21 05:30 WBC RBC Hgb Hct MCV MCH RDW Plt Count Lymph % (Auto) Emery % (Auto) Emery # Emery # (Auto) Seg Neutrophils % Seg Neuts % (Manual) Lymphocytes % (Manual) Seg Neutrophils # Seg Neutrophils # Man Lymphocytes # (Manual) D-Dimer ABG pH POC ABG pCO2 POC ABG pO2 ABG pO2 ABG O2 Saturation ABG Base Excess ABG Oxyhemoglobin ABG HCO3 26.8 H ABG Hemoglobin 10.7 L Oxyhemoglobin 94.3 L Sodium Potassium Chloride Carbon Dioxide BUN Creatinine Glucose POC Glucose 223 H 129 H Lactic Acid Calcium Ferritin AST Magnesium Lactate Dehydrogenase ALT C-Reactive Protein Total Protein Albumin Wleez-4-Ogkyjgxuw Zilxi-5-Unqyynjtm PEP Interpretation Triglycerides TSH CHICA Screen Complement C4 Coronavirus (PCR) 01/20/20 01/20/20 01/20/20 11:14 11:14 11:14 WBC RBC Hgb Hct MCV MCH RDW Plt Count Lymph % (Auto) Emery % (Auto) Emery # Emery # (Auto) Seg Neutrophils % Seg Neuts % (Manual) Lymphocytes % (Manual) Seg Neutrophils # Seg Neutrophils # Man Lymphocytes # (Manual) D-Dimer 1221.96 H ABG pH POC ABG pCO2 POC ABG pO2 ABG pO2 ABG O2 Saturation ABG Base Excess ABG Oxyhemoglobin ABG HCO3 ABG Hemoglobin Oxyhemoglobin Sodium Potassium Chloride Carbon Dioxide BUN Creatinine Glucose POC Glucose Lactic Acid Calcium Ferritin 364.6 H AST Magnesium Lactate Dehydrogenase 403 H ALT C-Reactive Protein 5.10 H Total Protein Albumin Btqzc-0-Ejejxioct Frbgv-0-Umitihppi PEP Interpretation Triglycerides TSH CHICA Screen Complement C4 Coronavirus (PCR) 01/20/20 01/20/20 01/20/20 12:01 18:10 23:07 WBC RBC Hgb Hct MCV MCH RDW Plt Count Lymph % (Auto) Emery % (Auto) Emery # Emery # (Auto) Seg Neutrophils % Seg Neuts % (Manual) Lymphocytes % (Manual) Seg Neutrophils # Seg Neutrophils # Man Lymphocytes # (Manual) D-Dimer ABG pH POC ABG pCO2 POC ABG pO2 ABG pO2 ABG O2 Saturation ABG Base Excess ABG Oxyhemoglobin ABG HCO3 ABG Hemoglobin Oxyhemoglobin Sodium Potassium Chloride Carbon Dioxide BUN Creatinine Glucose POC Glucose 260 H 317 H 237 H Lactic Acid Calcium Ferritin AST Magnesium Lactate Dehydrogenase ALT C-Reactive Protein Total Protein Albumin Lmril-1-Xlmbhhpxs Lrnli-5-Aszdnxokd PEP Interpretation Triglycerides TSH CHICA Screen Complement C4 Coronavirus (PCR) 01/21/20 01/21/20 01/21/20 05:25 05:25 05:42 WBC 11.3 H RBC Hgb 9.1 L Hct 28.9 L MCV 77 L MCH 24 L RDW Plt Count Lymph % (Auto) Emery % (Auto) Emery # Emery # (Auto) Seg Neutrophils % Seg Neuts % (Manual) Lymphocytes % (Manual) Seg Neutrophils # Seg Neutrophils # Man Lymphocytes # (Manual) D-Dimer ABG pH POC ABG pCO2 POC ABG pO2 ABG pO2 ABG O2 Saturation ABG Base Excess ABG Oxyhemoglobin ABG HCO3 ABG Hemoglobin Oxyhemoglobin Sodium 147 H Potassium Chloride 111.0 H Carbon Dioxide 31 H D BUN 20 H Creatinine Glucose 103 H POC Glucose 110 H Lactic Acid Calcium 8.2 L Ferritin AST Magnesium Lactate Dehydrogenase ALT C-Reactive Protein Total Protein Albumin Evksg-9-Ywrqkwtiy Whtqk-2-Fhtssvqld PEP Interpretation Triglycerides TSH CHICA Screen Complement C4 Coronavirus (PCR) 01/21/20 01/21/20 01/21/20 11:49 18:41 21:53 WBC RBC Hgb Hct MCV MCH RDW Plt Count Lymph % (Auto) Emery % (Auto) Emery # Emery # (Auto) Seg Neutrophils % Seg Neuts % (Manual) Lymphocytes % (Manual) Seg Neutrophils # Seg Neutrophils # Man Lymphocytes # (Manual) D-Dimer ABG pH POC ABG pCO2 POC ABG pO2 ABG pO2 ABG O2 Saturation ABG Base Excess ABG Oxyhemoglobin ABG HCO3 ABG Hemoglobin Oxyhemoglobin Sodium Potassium Chloride Carbon Dioxide BUN Creatinine Glucose POC Glucose 147 H 290 H 255 H Lactic Acid Calcium Ferritin AST Magnesium Lactate Dehydrogenase ALT C-Reactive Protein Total Protein Albumin Sgrnm-0-Qmzadwwdb Aguvh-4-Mxkukzvby PEP Interpretation Triglycerides TSH CHICA Screen Complement C4 Coronavirus (PCR) 01/22/20 01/22/20 01/22/20 03:35 04:42 05:23 WBC RBC Hgb Hct MCV MCH RDW Plt Count Lymph % (Auto) Emery % (Auto) Emery # Emery # (Auto) Seg Neutrophils % Seg Neuts % (Manual) Lymphocytes % (Manual) Seg Neutrophils # Seg Neutrophils # Man Lymphocytes # (Manual) D-Dimer ABG pH 7.46 H POC ABG pCO2 POC ABG pO2 ABG pO2 ABG O2 Saturation ABG Base Excess ABG Oxyhemoglobin ABG HCO3 ABG Hemoglobin 10.4 L Oxyhemoglobin Sodium 148 H Potassium 3.5 L Chloride 108.1 H Carbon Dioxide BUN 19 H Creatinine Glucose 159 H POC Glucose 173 H Lactic Acid Calcium 8.1 L Ferritin AST Magnesium Lactate Dehydrogenase ALT C-Reactive Protein Total Protein Albumin Yjarz-2-Froozjkhc Bzzyy-2-Wyemtodhn PEP Interpretation Triglycerides TSH [facility] Screen Complement C4 Coronavirus (PCR) 01/22/20 01/22/20 01/22/20 12:41 17:46 23:06 WBC RBC Hgb Hct MCV MCH RDW Plt Count Lymph % (Auto) Emery % (Auto) Emery # Emery # (Auto) Seg Neutrophils % Seg Neuts % (Manual) Lymphocytes % (Manual) Seg Neutrophils # Seg Neutrophils # Man Lymphocytes # (Manual) D-Dimer ABG pH POC ABG pCO2 POC ABG pO2 ABG pO2 ABG O2 Saturation ABG Base Excess ABG Oxyhemoglobin ABG HCO3 ABG Hemoglobin Oxyhemoglobin Sodium Potassium Chloride Carbon Dioxide BUN Creatinine Glucose POC Glucose 284 H 245 H 245 H Lactic Acid Calcium Ferritin AST Magnesium Lactate Dehydrogenase ALT C-Reactive Protein Total Protein Albumin Nutjj-9-Bwaipziaz Lxbmc-5-Bxxmhtrxr PEP Interpretation Triglycerides TSH [facility] Screen Complement C4 Coronavirus (PCR) 01/23/20 01/23/20 01/23/20 05:50 06:10 06:10 WBC RBC Hgb Hct MCV MCH RDW Plt Count Lymph % (Auto) Emery % (Auto) Emery # Emery # (Auto) Seg Neutrophils % Seg Neuts % (Manual) Lymphocytes % (Manual) Seg Neutrophils # Seg Neutrophils # Man Lymphocytes # (Manual) D-Dimer 451.53 H ABG pH POC ABG pCO2 POC ABG pO2 ABG pO2 ABG O2 Saturation ABG Base Excess ABG Oxyhemoglobin ABG HCO3 ABG Hemoglobin Oxyhemoglobin Sodium Potassium Chloride 110.3 H Carbon Dioxide BUN 19 H Creatinine 0.5 L Glucose 178 H POC Glucose 184 H Lactic Acid Calcium 7.6 L Ferritin AST Magnesium Lactate Dehydrogenase ALT C-Reactive Protein 3.30 H Total Protein Albumin Uzwmx-5-Rbbamnbki Mcbda-2-Zlnagqimu PEP Interpretation Triglycerides TSH [facility] Screen Complement C4 Coronavirus (PCR) 01/23/20 01/23/20 01/23/20 12:29 17:57 22:15 WBC 12.8 H RBC Hgb 9.7 L Hct MCV 77 L MCH 25 L RDW Plt Count Lymph % (Auto) Emery % (Auto) 9.1 H Emery # Emery # (Auto) 1.2 H Seg Neutrophils % Seg Neuts % (Manual) Lymphocytes % (Manual) Seg Neutrophils # 8.6 H Seg Neutrophils # Man Lymphocytes # (Manual) D-Dimer ABG pH POC ABG pCO2 POC ABG pO2 ABG pO2 ABG O2 Saturation ABG Base Excess ABG Oxyhemoglobin ABG HCO3 ABG Hemoglobin Oxyhemoglobin Sodium Potassium Chloride Carbon Dioxide BUN Creatinine Glucose POC Glucose 258 H 248 H Lactic Acid Calcium Ferritin AST Magnesium Lactate Dehydrogenase ALT C-Reactive Protein Total Protein Albumin Nssov-3-Wkkclrzlr Shdnw-8-Lrmqiqosi PEP Interpretation Triglycerides TSH [facility] Screen Complement C4 Coronavirus (PCR) 01/23/20 01/24/20 01/24/20 23:28 06:00 06:00 WBC 12.4 H RBC Hgb 9.3 L Hct 28.6 L MCV 77 L MCH 25 L RDW Plt Count Lymph % (Auto) Emery % (Auto) 8.7 H Emery # Emery # (Auto) 1.1 H Seg Neutrophils % 71.2 H Seg Neuts % (Manual) Lymphocytes % (Manual) Seg Neutrophils # 8.8 H Seg Neutrophils # Man Lymphocytes # (Manual) D-Dimer ABG pH POC ABG pCO2 POC ABG pO2 ABG pO2 ABG O2 Saturation ABG Base Excess ABG Oxyhemoglobin ABG HCO3 ABG Hemoglobin Oxyhemoglobin Sodium Potassium 3.4 L Chloride 107.3 H Carbon Dioxide BUN Creatinine Glucose POC Glucose 200 H Lactic Acid Calcium Ferritin AST Magnesium Lactate Dehydrogenase ALT C-Reactive Protein Total Protein Albumin Ckvuv-9-Wvxnmlgfv Izduk-1-Lyljrjhkd PEP Interpretation Triglycerides TSH [facility] Screen Complement C4 Coronavirus (PCR) 01/24/20 01/24/20 01/24/20 10:02 12:31 17:59 WBC RBC Hgb Hct MCV MCH RDW Plt Count Lymph % (Auto) Emery % (Auto) Emery # Emery # (Auto) Seg Neutrophils % Seg Neuts % (Manual) Lymphocytes % (Manual) Seg Neutrophils # Seg Neutrophils # Man Lymphocytes # (Manual) D-Dimer ABG pH POC ABG pCO2 POC ABG pO2 ABG pO2 ABG O2 Saturation ABG Base Excess ABG Oxyhemoglobin ABG HCO3 ABG Hemoglobin Oxyhemoglobin Sodium Potassium Chloride Carbon Dioxide BUN Creatinine Glucose POC Glucose 161 H 252 H 182 H Lactic Acid Calcium Ferritin AST Magnesium Lactate Dehydrogenase ALT C-Reactive Protein Total Protein Albumin Qlkld-6-Tmattqylv Ihsjk-8-Kgvbqxdjz PEP Interpretation Triglycerides TSH [facility] Screen Complement C4 Coronavirus (PCR) 01/25/20 01/25/20 01/25/20 00:21 05:43 12:01 WBC RBC Hgb Hct MCV MCH RDW Plt Count Lymph % (Auto) Emery % (Auto) Emery # Emery # (Auto) Seg Neutrophils % Seg Neuts % (Manual) Lymphocytes % (Manual) Seg Neutrophils # Seg Neutrophils # Man Lymphocytes # (Manual) D-Dimer ABG pH POC ABG pCO2 POC ABG pO2 ABG pO2 ABG O2 Saturation ABG Base Excess ABG Oxyhemoglobin ABG HCO3 ABG Hemoglobin Oxyhemoglobin Sodium Potassium Chloride Carbon Dioxide BUN Creatinine Glucose POC Glucose 125 H 132 H 215 H Lactic Acid Calcium Ferritin AST Magnesium Lactate Dehydrogenase ALT C-Reactive Protein Total Protein Albumin Xnhvv-1-Yfgyasncc Panmd-8-Hyzjytxpl PEP Interpretation Triglycerides TSH [facility] Screen Complement C4 Coronavirus (PCR) 01/25/20 01/26/20 01/26/20 18:23 00:20 04:43 WBC RBC Hgb Hct MCV MCH RDW Plt Count Lymph % (Auto) Emery % (Auto) Emery # Emery # (Auto) Seg Neutrophils % Seg Neuts % (Manual) Lymphocytes % (Manual) Seg Neutrophils # Seg Neutrophils # Man Lymphocytes # (Manual) D-Dimer 864.61 H ABG pH POC ABG pCO2 POC ABG pO2 ABG pO2 ABG O2 Saturation ABG Base Excess ABG Oxyhemoglobin ABG HCO3 ABG Hemoglobin Oxyhemoglobin Sodium Potassium Chloride Carbon Dioxide BUN Creatinine Glucose POC Glucose 213 H 173 H Lactic Acid Calcium Ferritin AST Magnesium Lactate Dehydrogenase ALT C-Reactive Protein Total Protein Albumin Oqhxu-0-Ynfldlgcx Vijnv-9-Wvmmuqrxl PEP Interpretation Triglycerides TSH [facility] Screen Complement C4 Coronavirus (PCR) 01/26/20 01/26/20 01/26/20 04:43 04:43 05:45 WBC RBC Hgb Hct MCV MCH RDW Plt Count Lymph % (Auto) Emery % (Auto) Emery # Emery # (Auto) Seg Neutrophils % Seg Neuts % (Manual) Lymphocytes % (Manual) Seg Neutrophils # Seg Neutrophils # Man Lymphocytes # (Manual) D-Dimer ABG pH POC ABG pCO2 POC ABG pO2 ABG pO2 ABG O2 Saturation ABG Base Excess ABG Oxyhemoglobin ABG HCO3 ABG Hemoglobin Oxyhemoglobin Sodium Potassium Chloride Carbon Dioxide BUN Creatinine Glucose POC Glucose 131 H Lactic Acid Calcium Ferritin 267.6 H AST Magnesium Lactate Dehydrogenase 319 H ALT C-Reactive Protein 8.90 H Total Protein Albumin Sshmq-5-Oalowxfmb Xtyhh-4-Jdrqecpnj PEP Interpretation Triglycerides TSH [facility] Screen Complement C4 Coronavirus (PCR) 01/26/20 01/26/20 01/26/20 10:37 10:37 12:05 WBC RBC 3.51 L Hgb 8.8 L Hct 27.1 L MCV 77 L MCH 25 L RDW Plt Count Lymph % (Auto) Emery % (Auto) 7.8 H Emery # Emery # (Auto) Seg Neutrophils % 74.0 H Seg Neuts % (Manual) Lymphocytes % (Manual) Seg Neutrophils # 8.0 H Seg Neutrophils # Man Lymphocytes # (Manual) D-Dimer ABG pH POC ABG pCO2 POC ABG pO2 ABG pO2 ABG O2 Saturation ABG Base Excess ABG Oxyhemoglobin ABG HCO3 ABG Hemoglobin Oxyhemoglobin Sodium Potassium 3.5 L Chloride Carbon Dioxide BUN Creatinine Glucose 124 H POC Glucose 137 H Lactic Acid Calcium Ferritin AST 49 H Magnesium Lactate Dehydrogenase ALT 81 H C-Reactive Protein Total Protein 5.6 L Albumin 2.6 L Wsumh-4-Rcdfvzlqm Gtvif-9-Wbicuhvhk PEP Interpretation Triglycerides TSH [facility] Screen Complement C4 Coronavirus (PCR) Allied health notes reviewed: nursing
--- NOTE | 2020-01-26 15:16 | Progress Note ---
Assessment and Plan Cultures: Blood culture 01/11/2020 no growth today Urine culture 01/11/2020 10-100,000 normal skin cristina Tracheal aspirate a 01/13/2020 no growth 01/22/2020 Blood culture: no growth A/P: 39-year-old female past medical history morbid obesity, diabetes admitted with severe COVID-19 pneumonia. #Sepsis: secondary to COVID-19 pneumonia. New fever being worked up. No clear source found yet. #Acute hypoxemic respiratory failure: Likely secondary to COVID-19 infection. Extubated 01/24/2020. #COVID-19 pneumonia: Very high d-dimer on admission. Completed ceftriaxone. Completed Remdesivir. Markers are slowly improving. D-dimer improving. Completed steroids. #Morbid obesity: BMI=52. Associated with worse COVID-19 outcomes #Transaminitis: Likely related to COVID-19 #ARACELI: Resolved #Bradycardia: Resolved. Recs: -Completed steroids 01/25/2020 -plan to stop abx tomorrow -anticoagulation per protocol based on d-dimer -CRP rising, if continues to rise, may consider restarting a short course of steroids Lynn Song MD, FACP [facility] ([facility] C: [phone] O: [phone] F: [phone] Subjective Date of service: 01/26/20 Principal diagnosis: Ac. hypoxemic resp failure; COVID infection; PNA; ARACELI; Thrombocytopenia Interval history: Low grade fever. Remains on HFNC, out of ICU. Objective - Exam Narrative Exam: Physical Exam (reviewed in chart due to PPE conservation and minimize risk of transmission) Constitutional: limited due to PPE conservation strategy Head, Ears, Nose: limited due to PPE conservation strategy Eyes: limited due to PPE conservation strategy Neck: limited due to PPE conservation strategy Oral: limited due to PPE conservation strategy Cardiovascular: limited due to PPE conservation strategy Respiratory: limited due to PPE conservation strategy GI: limited due to PPE conservation strategy Musculoskeletal: limited due to PPE conservation strategy Skin: limited due to PPE conservation strategy Hem/Lymphatic: limited due to PPE conservation strategy Psych: limited due to PPE conservation strategy Neurological: limited due to PPE conservation strategy - Constitutional Vitals: Vital Signs Temp Pulse Resp BP Pulse Ox 99.6 F 111 H 40 H 189/83 98 01/26/20 12:00 01/26/20 12:01 01/26/20 12:01 01/26/20 12:01 01/26/20 12:01 Temperature -Last 24 Hours Temperature 99.6 F Temperature 100.5 F Temperature 98.9 F Temperature 98.9 F Temperature 99.6 F Temperature 1004 F - Labs CBC & Chem 7: 01/26/20 10:37 01/26/20 10:37 Labs: Abnormal lab results 01/25/20 01/25/20 01/26/20 Range/Units 12:01 18:23 00:20 RBC (3.65-5.03) M/mm3 Hgb (10.1-14.3) gm/dl Hct (30.3-42.9) % MCV (79-97) fl MCH (28-32) pg Candler % (Auto) (0.0-7.3) % Seg Neutrophils % (40.0-70.0) % Seg Neutrophils # (1.8-7.7) K/mm3 D-Dimer (0-234) ng/mlDDU Potassium (3.6-5.0) mmol/L Glucose (65-100) mg/dL POC Glucose 215 H 213 H 173 H (70-105) Ferritin (10.0-200.0) ng/mL AST (5-40) units/L ALT (7-56) units/L Lactate Dehydrogenase (91-180) units/L C-Reactive Protein (0.00-1.30) mg/dL Total Protein (6.3-8.2) g/dL Albumin (3.9-5) g/dL 01/26/20 01/26/20 01/26/20 Range/Units 04:43 04:43 04:43 RBC (3.65-5.03) M/mm3 Hgb (10.1-14.3) gm/dl Hct (30.3-42.9) % MCV (79-97) fl MCH (28-32) pg Candler % (Auto) (0.0-7.3) % Seg Neutrophils % (40.0-70.0) % Seg Neutrophils # (1.8-7.7) K/mm3 D-Dimer 864.61 H (0-234) ng/mlDDU Potassium (3.6-5.0) mmol/L Glucose (65-100) mg/dL POC Glucose (70-105) Ferritin 267.6 H (10.0-200.0) ng/mL AST (5-40) units/L ALT (7-56) units/L Lactate Dehydrogenase 319 H (91-180) units/L C-Reactive Protein 8.90 H (0.00-1.30) mg/dL Total Protein (6.3-8.2) g/dL Albumin (3.9-5) g/dL 01/26/20 01/26/20 01/26/20 Range/Units 05:45 10:37 10:37 RBC 3.51 L (3.65-5.03) M/mm3 Hgb 8.8 L (10.1-14.3) gm/dl Hct 27.1 L (30.3-42.9) % MCV 77 L (79-97) fl MCH 25 L (28-32) pg Candler % (Auto) 7.8 H (0.0-7.3) % Seg Neutrophils % 74.0 H (40.0-70.0) % Seg Neutrophils # 8.0 H (1.8-7.7) K/mm3 D-Dimer (0-234) ng/mlDDU Potassium 3.5 L (3.6-5.0) mmol/L Glucose 124 H (65-100) mg/dL POC Glucose 131 H (70-105) Ferritin (10.0-200.0) ng/mL AST 49 H (5-40) units/L ALT 81 H (7-56) units/L Lactate Dehydrogenase (91-180) units/L C-Reactive Protein (0.00-1.30) mg/dL Total Protein 5.6 L (6.3-8.2) g/dL Albumin 2.6 L (3.9-5) g/dL 01/26/20 Range/Units 12:05 RBC (3.65-5.03) M/mm3 Hgb (10.1-14.3) gm/dl Hct (30.3-42.9) % MCV (79-97) fl MCH (28-32) pg Candler % (Auto) (0.0-7.3) % Seg Neutrophils % (40.0-70.0) % Seg Neutrophils # (1.8-7.7) K/mm3 D-Dimer (0-234) ng/mlDDU Potassium (3.6-5.0) mmol/L Glucose (65-100) mg/dL POC Glucose 137 H (70-105) Ferritin (10.0-200.0) ng/mL AST (5-40) units/L ALT (7-56) units/L Lactate Dehydrogenase (91-180) units/L C-Reactive Protein (0.00-1.30) mg/dL Total Protein (6.3-8.2) g/dL Albumin (3.9-5) g/dL
[2020-01-26] MEDS: ACETAMINOPHEN 325 MG TAB PO PRN (17:09)
[2020-01-26] MEDS: ENOXAPARIN 40 MG/0.4 ML INJ SUB-Q SCH (21:14)
[2020-01-26] MEDS: HYDROmorphone 1 MG/1 ML INJ IV PRN (21:15)
[2020-01-27] MEDS: INSULIN LISPRO 100 UNIT/ML VIAL 3 mL SUB-Q SCH ×6 (01:00→17:49)
[2020-01-27] MEDS: hydrALAZINE 25 MG TAB PO SCH ×3 (05:17→22:30)
[2020-01-27] MEDS: INSULIN GLARGINE 100 UNITS/ML SUB-Q SCH (10:24)
[2020-01-27] MEDS: cloNIDine 0.1 MG TAB PO SCH ×2 (10:25→22:29)
[2020-01-27] MEDS: clonazePAM 0.5 MG TAB PO SCH ×2 (10:26→22:29)
[2020-01-27] MEDS: FAMOTIDINE 20 MG TAB PO SCH ×2 (10:27→22:30)
[2020-01-27] MEDS: QUEtiapine 200 MG TAB PO SCH ×2 (10:53→22:29)
--- NOTE | 2020-01-27 14:53 | Progress Note ---
Assessment and Plan Acute hypoxemic respiratory failure orally intubated on MVS Severe COVID infection Multifocal pneumonia Extreme obesity ARACELI- vasomotor nephropathy/COVID Thrombocytopenia Hyperglycemia Hypernatremia - Psych evaluation per attending for apparent h/o Bipolar disorder - await DEVELOPMENT ANALYST evaluation and advance diet as tolerated - continue care as below otherwise; - VTE w/up negative and on VTE prophylaxis dose of enoxaparin now - continue Seroquel 300 mg bid - continue hydralazine 100 mg p.o. q8h - continue to avoid Qt prolonging drugs - DEVELOPMENT ANALYST evaluatioon and advance diet as tolerated - continue to avoid nephrotoxins, closely monitor renal function, renally dose all medications - CXR, ABG prn - continue bronchodilators with pulmonary hygiene per RT - prn analgesia per pain score - Continue to wean supplemental oxygen for target O2 sats > 92% - Anti-infective's per ID recommendations - Accuchecks with glycemic control for target blood glucose of <180 mg/dL; avoid hypoglycemia - Maintenance of sleep-wake cycle, avoid delirium - Aspiration precautions, HOB >40 - Stress ulcer prophylaxis - Mobility protocol, off loading and skin assessment for pressure ulcer prevention - Monitor hemodynamics closely - Supportive transfusions as indicated to keep HgB >7g/dL COVID SPECIFIC INTERVENTIONS: - Airborne, contact isolation for COVID per facility protocols - s/p IV steroids-dexamethasone - Trend d-dimer,and other inflammatory markers per facility protocol - completed Remdesivir dosing - completed ceftriaxone 2 gm IV qday and azithromycin 500 mg PO qday for empiric CAP coverage - Monitoring QTc ...... re-evaluate in am & prn Subjective Date of service: 01/27/20 Principal diagnosis: Ac. hypoxemic resp failure; COVID infection; PNA; ARACELI; Thrombocytopenia Interval history: Patient is seen today for: Acute hypoxemic respiratory failure; Severe COVID infection; Multifocal pneumonia; Extreme obesity; ARACELI; Thrombocytopenia Seen and examined at bedside; 24hour events reviewed; nursing and respiratory care staff consulted; no adverse overnight events reported to me; resting peacefully in bed; remains on supplemental oxygen with FiO2 at 35%; wants to eat; asking for her "Paxil"; denies acute chest pains or palpitations; weak; still SOB even at rest Objective Vital Signs - 12hr 01/27/20 01/27/20 01/27/20 08:21 10:25 14:43 Pulse Rate 126 H Blood Pressure 128/64 O2 Sat by Pulse 98 98 Oximetry Constitutional: no acute distress, alert, other (Morbidly obese female with mildly increased respiratory effort at rest) Eyes: non-icteric ENT: oropharynx moist, other (extubated) Neck: supple, no lymphadenopathy, no JVD Effort: mildly labored Ascultation: Bilateral: diminished breath sounds, rhonchi Percussion: Bilateral: not dull Cardiovascular: regular rate and rhythm, other Gastrointestinal: normoactive bowel sounds, soft, non-tender, non-distended (protuberant) Integumentary: normal Extremities: no cyanosis, no edema, pulses normal, no ischemia or petechiae Neurologic: normal mental status, non-focal exam, pupils equal and round, CN II- XII normal, motor strength normal and Psychiatric: mood appropriate, affect normal CBC and BMP: 01/26/20 10:37 01/26/20 10:37 ABG, PT/INR, D-dimer: ABG ABG pH 7.46 (7.320-7.450) H 01/22/20 03:35 POC ABG pCO2 36.6 mmHg (32.0-48.0) 01/22/20 03:35 ABG pCO2 46.1 mm Hg 01/20/20 04:21 POC ABG pO2 84.0 mmHg (83-108) 01/22/20 03:35 ABG pO2 81.7 mm Hg (80.0-90.0) 01/20/20 04:21 POC ABG HCO3 25.4 01/22/20 03:35 ABG O2 Saturation 96.5 % (95.0-99.0) 01/20/20 04:21 PT/INR, D-dimer D-Dimer 864.61 ng/mlDDU (0-234) H 01/26/20 04:43 Abnormal lab findings: Abnormal Labs 01/11/20 01/11/20 01/11/20 17:22 17:22 17:22 WBC RBC Hgb Hct MCV MCH RDW Plt Count Lymph % (Auto) [place] % (Auto) Burnet # [place] # (Auto) Seg Neutrophils % Seg Neuts % (Manual) Lymphocytes % (Manual) Seg Neutrophils # Seg Neutrophils # Man Lymphocytes # (Manual) D-Dimer 622.52 H ABG pH POC ABG pCO2 POC ABG pO2 ABG pO2 ABG O2 Saturation ABG Base Excess ABG Oxyhemoglobin ABG HCO3 ABG Hemoglobin Oxyhemoglobin Sodium Potassium Chloride 97.6 L Carbon Dioxide 18 L BUN Creatinine Glucose 199 H POC Glucose Lactic Acid 2.20 H* Calcium Ferritin AST 68 H Magnesium Lactate Dehydrogenase ALT C-Reactive Protein Total Protein Albumin 3.0 L Mrwjx-3-Uopzpwgvb Gzcsf-5-Yiaqwgity PEP Interpretation Triglycerides TSH CHICA Screen Complement C4 Coronavirus (PCR) 01/11/20 01/11/20 01/11/20 17:22 17:22 23:29 WBC RBC Hgb Hct MCV MCH RDW Plt Count Lymph % (Auto) [place] % (Auto) Burnet # [place] # (Auto) Seg Neutrophils % Seg Neuts % (Manual) Lymphocytes % (Manual) Seg Neutrophils # Seg Neutrophils # Man Lymphocytes # (Manual) D-Dimer ABG pH POC ABG pCO2 POC ABG pO2 ABG pO2 ABG O2 Saturation ABG Base Excess ABG Oxyhemoglobin ABG HCO3 ABG Hemoglobin Oxyhemoglobin Sodium Potassium Chloride Carbon Dioxide BUN Creatinine Glucose 202 H POC Glucose Lactic Acid 2.10 H* Calcium Ferritin 270.3 H AST Magnesium Lactate Dehydrogenase 610 H ALT C-Reactive Protein 23.80 H Total Protein Albumin Nmzke-2-Owpinxfcv Kxkua-4-Rbnyhpviz PEP Interpretation Triglycerides TSH CHICA Screen Complement C4 Coronavirus (PCR) 01/12/20 01/12/20 01/12/20 07:07 07:07 09:00 WBC RBC 5.31 H Hgb Hct MCV 76 L MCH 25 L RDW 15.5 H Plt Count Lymph % (Auto) 11.2 L [place] % (Auto) Burn[place] # [place] # (Auto) Seg Neutrophils % 85.2 H Seg Neuts % (Manual) Lymphocytes % (Manual) Seg Neutrophils # 9.2 H Seg Neutrophils # Man Lymphocytes # (Manual) D-Dimer ABG pH POC ABG pCO2 POC ABG pO2 ABG pO2 ABG O2 Saturation ABG Base Excess ABG Oxyhemoglobin ABG HCO3 ABG Hemoglobin Oxyhemoglobin Sodium Potassium Chloride Carbon Dioxide 21 L BUN 23 H Creatinine Glucose 206 H POC Glucose Lactic Acid Calcium Ferritin AST Magnesium Lactate Dehydrogenase ALT C-Reactive Protein Total Protein Albumin Nidzy-7-Bpvyawggj Iuwny-5-Wtjcvmwzj PEP Interpretation Triglycerides TSH CHICA Screen Complement C4 Coronavirus (PCR) Positive A 01/13/20 01/13/20 01/13/20 01:02 04:45 05:10 WBC RBC Hgb Hct MCV MCH RDW Plt Count Lymph % (Auto) [place] % (Auto) [place] # [place] # (Auto) Seg Neutrophils % Seg Neuts % (Manual) Lymphocytes % (Manual) Seg Neutrophils # Seg Neutrophils # Man Lymphocytes # (Manual) D-Dimer > 37382 H ABG pH 7.19 L POC ABG pCO2 56.2 H POC ABG pO2 44.3 L 62.5 L ABG pO2 ABG O2 Saturation ABG Base Excess ABG Oxyhemoglobin 77.5 L 86.5 L ABG HCO3 ABG Hemoglobin Oxyhemoglobin Sodium Potassium Chloride Carbon Dioxide BUN Creatinine Glucose POC Glucose Lactic Acid Calcium Ferritin AST Magnesium Lactate Dehydrogenase ALT C-Reactive Protein Total Protein Albumin Xsilc-5-Fnwbztxdz Gbbks-8-Mftdryazl PEP Interpretation Triglycerides TSH CHICA Screen Complement C4 Coronavirus (PCR) 01/13/20 01/13/20 01/13/20 05:10 05:54 12:07 WBC RBC Hgb Hct MCV MCH RDW Plt Count Lymph % (Auto) [place] % (Auto) Burn[place] # [place] # (Auto) Seg Neutrophils % Seg Neuts % (Manual) Lymphocytes % (Manual) Seg Neutrophils # Seg Neutrophils # Man Lymphocytes # (Manual) D-Dimer ABG pH POC ABG pCO2 POC ABG pO2 ABG pO2 ABG O2 Saturation ABG Base Excess ABG Oxyhemoglobin ABG HCO3 ABG Hemoglobin Oxyhemoglobin Sodium Potassium Chloride Carbon Dioxide BUN Creatinine Glucose POC Glucose 356 H 309 H Lactic Acid Calcium Ferritin AST Magnesium Lactate Dehydrogenase 999 H ALT C-Reactive Protein Total Protein Albumin Snyyx-8-Wkecrruqo Onysg-8-Ykgxilalw PEP Interpretation Triglycerides TSH CHICA Screen Complement C4 Coronavirus (PCR) 01/13/20 01/13/20 01/13/20 12:54 18:46 18:50 WBC 14.0 H RBC Hgb Hct MCV 76 L MCH 25 L RDW 15.8 H Plt Count 113 L Lymph % (Auto) [place] % (Auto) Burn[place] # [place] # (Auto) Seg Neutrophils % Seg Neuts % (Manual) 88.0 H Lymphocytes % (Manual) 2.0 L Seg Neutrophils # Seg Neutrophils # Man 12.3 H Lymphocytes # (Manual) 0.3 L D-Dimer ABG pH 7.290 L POC ABG pCO2 POC ABG pO2 ABG pO2 60.2 L ABG O2 Saturation 88.6 L ABG Base Excess -2.7 L ABG Oxyhemoglobin ABG HCO3 ABG Hemoglobin Oxyhemoglobin 87.1 L Sodium Potassium Chloride Carbon Dioxide BUN Creatinine Glucose POC Glucose 268 H Lactic Acid Calcium Ferritin AST Magnesium Lactate Dehydrogenase ALT C-Reactive Protein Total Protein Albumin Esgab-0-Qrmqycnyu Cnqma-5-Eqnbnlscr PEP Interpretation Triglycerides TSH CHICA Screen Complement C4 Coronavirus (PCR) 01/13/20 01/14/20 01/14/20 23:53 00:31 03:13 WBC RBC Hgb Hct MCV MCH RDW Plt Count Lymph % (Auto) [place] % (Auto) [place] # [place] # (Auto) Seg Neutrophils % Seg Neuts % (Manual) Lymphocytes % (Manual) Seg Neutrophils # Seg Neutrophils # Man Lymphocytes # (Manual) D-Dimer ABG pH POC ABG pCO2 POC ABG pO2 ABG pO2 132.6 H ABG O2 Saturation ABG Base Excess -2.7 L ABG Oxyhemoglobin ABG HCO3 ABG Hemoglobin Oxyhemoglobin Sodium Potassium 5.3 H Chloride Carbon Dioxide BUN 55 H Creatinine 1.6 H Glucose 268 H POC Glucose 259 H Lactic Acid Calcium Ferritin AST 46 H Magnesium Lactate Dehydrogenase ALT C-Reactive Protein Total Protein 6.1 L Albumin 3.1 L Dkojo-1-Rdjujmzhu Efscx-2-Tasylelxm PEP Interpretation Triglycerides TSH CHICA Screen Complement C4 Coronavirus (PCR) 01/14/20 01/14/20 01/14/20 05:23 06:06 09:47 WBC RBC Hgb Hct MCV MCH RDW Plt Count Lymph % (Auto) [place] % (Auto) [place] # [place] # (Auto) Seg Neutrophils % Seg Neuts % (Manual) Lymphocytes % (Manual) Seg Neutrophils # Seg Neutrophils # Man Lymphocytes # (Manual) D-Dimer > 56066 H ABG pH POC ABG pCO2 POC ABG pO2 ABG pO2 ABG O2 Saturation ABG Base Excess ABG Oxyhemoglobin ABG HCO3 ABG Hemoglobin Oxyhemoglobin Sodium Potassium 5.5 H Chloride 107.6 H Carbon Dioxide 21 L BUN 58 H Creatinine 1.7 H Glucose 231 H POC Glucose 231 H Lactic Acid Calcium Ferritin AST Magnesium Lactate Dehydrogenase ALT C-Reactive Protein Total Protein Albumin Nzjku-5-Kgkxgcqvf Xhcme-2-Casksbuma PEP Interpretation Triglycerides TSH CHICA Screen Complement C4 Coronavirus (PCR) 01/14/20 01/14/20 01/14/20 09:47 12:20 16:00 WBC RBC Hgb Hct MCV MCH RDW Plt Count Lymph % (Auto) [place] % (Auto) [place] # [place] # (Auto) Seg Neutrophils % Seg Neuts % (Manual) Lymphocytes % (Manual) Seg Neutrophils # Seg Neutrophils # Man Lymphocytes # (Manual) D-Dimer ABG pH POC ABG pCO2 POC ABG pO2 ABG pO2 69.3 L ABG O2 Saturation 94.4 L ABG Base Excess ABG Oxyhemoglobin ABG HCO3 ABG Hemoglobin Oxyhemoglobin 92.7 L Sodium Potassium Chloride 107.2 H Carbon Dioxide 21 L BUN 63 H Creatinine 1.5 H Glucose 217 H POC Glucose 238 H Lactic Acid Calcium Ferritin AST Magnesium Lactate Dehydrogenase ALT C-Reactive Protein Total Protein 6.0 L Albumin 2.7 L Lcxhr-4-Ckcpoigsw Durhn-7-Uthzppfyv PEP Interpretation Triglycerides TSH CHICA Screen Complement C4 Coronavirus (PCR) 01/14/20 01/14/20 01/14/20 18:24 19:01 23:50 WBC RBC Hgb Hct MCV MCH RDW Plt Count Lymph % (Auto) [place] % (Auto) [place] # [place] # (Auto) Seg Neutrophils % Seg Neuts % (Manual) Lymphocytes % (Manual) Seg Neutrophils # Seg Neutrophils # Man Lymphocytes # (Manual) D-Dimer ABG pH POC ABG pCO2 POC ABG pO2 ABG pO2 ABG O2 Saturation ABG Base Excess ABG Oxyhemoglobin ABG HCO3 ABG Hemoglobin Oxyhemoglobin Sodium 146 H Potassium 5.9 H Chloride 108.0 H Carbon Dioxide 20 L BUN 61 H Creatinine 1.4 H Glucose 254 H POC Glucose 228 H 321 H Lactic Acid Calcium Ferritin AST Magnesium Lactate Dehydrogenase ALT C-Reactive Protein Total Protein Albumin Rkcef-7-Kmyecctol Xtzpj-8-Sjrzxhurp PEP Interpretation Triglycerides TSH CHICA Screen Complement C4 Coronavirus (PCR) 01/14/20 01/14/20 01/14/20 Unknown Unknown Unknown WBC RBC Hgb Hct MCV MCH RDW Plt Count Lymph % (Auto) [place] % (Auto) [place] # [place] # (Auto) Seg Neutrophils % Seg Neuts % (Manual) Lymphocytes % (Manual) Seg Neutrophils # Seg Neutrophils # Man Lymphocytes # (Manual) D-Dimer ABG pH POC ABG pCO2 POC ABG pO2 ABG pO2 ABG O2 Saturation ABG Base Excess ABG Oxyhemoglobin ABG HCO3 ABG Hemoglobin Oxyhemoglobin Sodium Potassium Chloride Carbon Dioxide BUN Creatinine Glucose POC Glucose Lactic Acid Calcium Ferritin AST Magnesium Lactate Dehydrogenase ALT C-Reactive Protein Total Protein Albumin 2.8 L Dbizn-8-Epgechrsx 0.6 H Gwhjm-6-Qbzhkcbws 1.1 H PEP Interpretation see below H Triglycerides TSH CHICA Screen Positive H Complement C4 76 H Coronavirus (PCR) 01/15/20 01/15/20 01/15/20 03:37 03:57 03:57 WBC 14.9 H RBC Hgb Hct MCV 75 L MCH 25 L RDW 15.4 H Plt Count Lymph % (Auto) 8.6 L [place] % (Auto) [place] # 1.0 H [place] # (Auto) Seg Neutrophils % 84.2 H Seg Neuts % (Manual) Lymphocytes % (Manual) Seg Neutrophils # 12.5 H Seg Neutrophils # Man Lymphocytes # (Manual) D-Dimer ABG pH 7.480 H POC ABG pCO2 POC ABG pO2 76.7 L ABG pO2 ABG O2 Saturation ABG Base Excess ABG Oxyhemoglobin ABG HCO3 ABG Hemoglobin Oxyhemoglobin Sodium 152 H Potassium Chloride 113.0 H Carbon Dioxide BUN 52 H Creatinine Glucose 288 H POC Glucose Lactic Acid Calcium Ferritin AST Magnesium Lactate Dehydrogenase ALT C-Reactive Protein Total Protein Albumin Nuepi-9-Hfbxyatlh Wodna-6-Szkzmxgwp PEP Interpretation Triglycerides TSH CHICA Screen Complement C4 Coronavirus (PCR) 01/15/20 01/15/20 01/15/20 05:50 11:56 14:35 WBC RBC Hgb Hct MCV MCH RDW Plt Count Lymph % (Auto) [place] % (Auto) [place] # [place] # (Auto) Seg Neutrophils % Seg Neuts % (Manual) Lymphocytes % (Manual) Seg Neutrophils # Seg Neutrophils # Man Lymphocytes # (Manual) D-Dimer ABG pH POC ABG pCO2 POC ABG pO2 ABG pO2 ABG O2 Saturation ABG Base Excess ABG Oxyhemoglobin ABG HCO3 ABG Hemoglobin Oxyhemoglobin Sodium Potassium Chloride Carbon Dioxide BUN Creatinine Glucose POC Glucose 259 H 162 H Lactic Acid Calcium Ferritin 332.4 H AST Magnesium Lactate Dehydrogenase ALT C-Reactive Protein Total Protein Albumin Qlmgc-5-Qnlpvgqzg Dbyzy-0-Jlrjvtjyg PEP Interpretation Triglycerides TSH CHICA Screen Complement C4 Coronavirus (PCR) 01/15/20 01/15/20 01/15/20 14:35 14:35 14:35 WBC RBC Hgb Hct MCV MCH RDW Plt Count Lymph % (Auto) [place] % (Auto) [place] # [place] # (Auto) Seg Neutrophils % Seg Neuts % (Manual) Lymphocytes % (Manual) Seg Neutrophils # Seg Neutrophils # Man Lymphocytes # (Manual) D-Dimer ABG pH POC ABG pCO2 POC ABG pO2 ABG pO2 ABG O2 Saturation ABG Base Excess ABG Oxyhemoglobin ABG HCO3 ABG Hemoglobin Oxyhemoglobin Sodium Potassium Chloride Carbon Dioxide BUN Creatinine Glucose POC Glucose Lactic Acid Calcium Ferritin AST Magnesium 3.00 H Lactate Dehydrogenase 747 H ALT C-Reactive Protein 7.60 H Total Protein Albumin Odnxy-3-Nypuryjzr Rhefg-9-Swifmjxvg PEP Interpretation Triglycerides TSH 0.221 L CHICA Screen Complement C4 Coronavirus (PCR) 01/15/20 01/15/20 01/15/20 16:18 17:31 23:26 WBC RBC Hgb Hct MCV MCH RDW Plt Count Lymph % (Auto) [place] % (Auto) [place] # [place] # (Auto) Seg Neutrophils % Seg Neuts % (Manual) Lymphocytes % (Manual) Seg Neutrophils # Seg Neutrophils # Man Lymphocytes # (Manual) D-Dimer ABG pH 7.510 H POC ABG pCO2 POC ABG pO2 76.6 L ABG pO2 ABG O2 Saturation ABG Base Excess ABG Oxyhemoglobin ABG HCO3 ABG Hemoglobin Oxyhemoglobin Sodium Potassium Chloride Carbon Dioxide BUN Creatinine Glucose POC Glucose 239 H 226 H Lactic Acid Calcium Ferritin AST Magnesium Lactate Dehydrogenase ALT C-Reactive Protein Total Protein Albumin Ohqgg-2-Nkrbjnncn Jpcok-4-Mfjpnafcz PEP Interpretation Triglycerides TSH CHICA Screen Complement C4 Coronavirus (PCR) 01/16/20 01/16/20 01/16/20 03:33 04:00 04:00 WBC 13.6 H RBC Hgb Hct MCV 74 L MCH 25 L RDW 15.4 H Plt Count Lymph % (Auto) [place] % (Auto) [place] # [place] # (Auto) Seg Neutrophils % Seg Neuts % (Manual) 91.0 H Lymphocytes % (Manual) 5.0 L Seg Neutrophils # Seg Neutrophils # Man 12.4 H Lymphocytes # (Manual) 0.7 L D-Dimer ABG pH 7.477 H POC ABG pCO2 POC ABG pO2 ABG pO2 ABG O2 Saturation ABG Base Excess ABG Oxyhemoglobin ABG HCO3 ABG Hemoglobin Oxyhemoglobin Sodium 151 H Potassium Chloride 113.8 H Carbon Dioxide BUN 45 H Creatinine Glucose 213 H POC Glucose Lactic Acid Calcium Ferritin AST Magnesium Lactate Dehydrogenase ALT C-Reactive Protein Total Protein Albumin Kqkkv-3-Jpzlolswe Rvwhq-1-Sawkfefts PEP Interpretation Triglycerides TSH CHICA Screen Complement C4 Coronavirus (PCR) 01/16/20 01/16/20 01/16/20 05:45 12:02 17:27 WBC RBC Hgb Hct MCV MCH RDW Plt Count Lymph % (Auto) [place] % (Auto) [place] # [place] # (Auto) Seg Neutrophils % Seg Neuts % (Manual) Lymphocytes % (Manual) Seg Neutrophils # Seg Neutrophils # Man Lymphocytes # (Manual) D-Dimer ABG pH POC ABG pCO2 POC ABG pO2 ABG pO2 ABG O2 Saturation ABG Base Excess ABG Oxyhemoglobin ABG HCO3 ABG Hemoglobin Oxyhemoglobin Sodium Potassium Chloride Carbon Dioxide BUN Creatinine Glucose POC Glucose 202 H 186 H 240 H Lactic Acid Calcium Ferritin AST Magnesium Lactate Dehydrogenase ALT C-Reactive Protein Total Protein Albumin Rodnd-2-Rtfivlhez Yidqd-6-Yghlfieba PEP Interpretation Triglycerides TSH CHICA Screen Complement C4 Coronavirus (PCR) 01/17/20 01/17/20 01/17/20 00:07 04:50 05:46 WBC RBC Hgb Hct MCV MCH RDW Plt Count Lymph % (Auto) [place] % (Auto) [place] # [place] # (Auto) Seg Neutrophils % Seg Neuts % (Manual) Lymphocytes % (Manual) Seg Neutrophils # Seg Neutrophils # Man Lymphocytes # (Manual) D-Dimer ABG pH 7.494 H POC ABG pCO2 POC ABG pO2 ABG pO2 73.4 L ABG O2 Saturation ABG Base Excess ABG Oxyhemoglobin ABG HCO3 ABG Hemoglobin Oxyhemoglobin 94.4 L Sodium Potassium Chloride Carbon Dioxide BUN Creatinine Glucose POC Glucose 207 H 170 H Lactic Acid Calcium Ferritin AST Magnesium Lactate Dehydrogenase ALT C-Reactive Protein Total Protein Albumin Sowbo-8-Akdtftyqr Vmytl-1-Uyvrntofx PEP Interpretation Triglycerides TSH CHICA Screen Complement C4 Coronavirus (PCR) 01/17/20 01/17/20 01/17/20 06:00 06:00 11:32 WBC 11.5 H RBC Hgb Hct MCV 75 L MCH 25 L RDW 15.5 H Plt Count Lymph % (Auto) [place] % (Auto) [place] # [place] # (Auto) Seg Neutrophils % Seg Neuts % (Manual) 81.0 H Lymphocytes % (Manual) 10.0 L Seg Neutrophils # Seg Neutrophils # Man 9.3 H Lymphocytes # (Manual) D-Dimer ABG pH POC ABG pCO2 POC ABG pO2 ABG pO2 ABG O2 Saturation ABG Base Excess ABG Oxyhemoglobin ABG HCO3 ABG Hemoglobin Oxyhemoglobin Sodium 151 H Potassium Chloride 113.6 H Carbon Dioxide BUN 40 H Creatinine Glucose 149 H POC Glucose 229 H Lactic Acid Calcium Ferritin AST Magnesium Lactate Dehydrogenase ALT C-Reactive Protein Total Protein Albumin Ibnxr-9-Muhpdcpuv Cztbc-3-Tgsnuhwrh PEP Interpretation Triglycerides TSH CHICA Screen Complement C4 Coronavirus (PCR) 01/17/20 01/17/20 01/17/20 13:40 13:40 13:40 WBC RBC Hgb Hct MCV MCH RDW Plt Count Lymph % (Auto) [place] % (Auto) [place] # [place] # (Auto) Seg Neutrophils % Seg Neuts % (Manual) Lymphocytes % (Manual) Seg Neutrophils # Seg Neutrophils # Man Lymphocytes # (Manual) D-Dimer 1878.79 H ABG pH POC ABG pCO2 POC ABG pO2 ABG pO2 ABG O2 Saturation ABG Base Excess ABG Oxyhemoglobin ABG HCO3 ABG Hemoglobin Oxyhemoglobin Sodium Potassium Chloride Carbon Dioxide BUN Creatinine Glucose POC Glucose Lactic Acid Calcium Ferritin 322.8 H AST Magnesium Lactate Dehydrogenase 587 H ALT C-Reactive Protein 4.60 H Total Protein Albumin Onzau-5-Rimjathyc Bikdu-6-Vexbjtgwm PEP Interpretation Triglycerides TSH CHICA Screen Complement C4 Coronavirus (PCR) 01/17/20 01/17/20 01/17/20 17:45 21:30 23:53 WBC RBC Hgb Hct MCV MCH RDW Plt Count Lymph % (Auto) [place] % (Auto) [place] # [place] # (Auto) Seg Neutrophils % Seg Neuts % (Manual) Lymphocytes % (Manual) Seg Neutrophils # Seg Neutrophils # Man Lymphocytes # (Manual) D-Dimer ABG pH POC ABG pCO2 POC ABG pO2 ABG pO2 179.6 H ABG O2 Saturation 99.2 H ABG Base Excess ABG Oxyhemoglobin ABG HCO3 ABG Hemoglobin 11.8 L Oxyhemoglobin Sodium Potassium Chloride Carbon Dioxide BUN Creatinine Glucose POC Glucose 364 H 272 H Lactic Acid Calcium Ferritin AST Magnesium Lactate Dehydrogenase ALT C-Reactive Protein Total Protein Albumin Snund-5-Nobbbprcp Chnmj-1-Elpjyabrn PEP Interpretation Triglycerides TSH CHICA Screen Complement C4 Coronavirus (PCR) 01/18/20 01/18/20 01/18/20 03:40 04:00 05:00 WBC RBC Hgb Hct MCV MCH RDW Plt Count Lymph % (Auto) [place] % (Auto) [place] # [place] # (Auto) Seg Neutrophils % Seg Neuts % (Manual) Lymphocytes % (Manual) Seg Neutrophils # Seg Neutrophils # Man Lymphocytes # (Manual) D-Dimer ABG pH POC ABG pCO2 POC ABG pO2 ABG pO2 162.6 H ABG O2 Saturation ABG Base Excess ABG Oxyhemoglobin ABG HCO3 ABG Hemoglobin Oxyhemoglobin Sodium 150 H Potassium Chloride 113.4 H Carbon Dioxide BUN 44 H Creatinine Glucose 268 H POC Glucose Lactic Acid Calcium Ferritin AST Magnesium Lactate Dehydrogenase ALT C-Reactive Protein Total Protein Albumin Cfiaj-5-Eqsotslws Yvsrp-3-Uhjkyxnut PEP Interpretation Triglycerides 198 H TSH CHICA Screen Complement C4 Coronavirus (PCR) 01/18/20 01/18/20 01/18/20 05:54 11:21 17:27 WBC RBC Hgb Hct MCV MCH RDW Plt Count Lymph % (Auto) [place] % (Auto) [place] # [place] # (Auto) Seg Neutrophils % Seg Neuts % (Manual) Lymphocytes % (Manual) Seg Neutrophils # Seg Neutrophils # Man Lymphocytes # (Manual) D-Dimer ABG pH POC ABG pCO2 POC ABG pO2 ABG pO2 ABG O2 Saturation ABG Base Excess ABG Oxyhemoglobin ABG HCO3 ABG Hemoglobin Oxyhemoglobin Sodium Potassium Chloride Carbon Dioxide BUN Creatinine Glucose POC Glucose 271 H 244 H 232 H Lactic Acid Calcium Ferritin AST Magnesium Lactate Dehydrogenase ALT C-Reactive Protein Total Protein Albumin Rrboo-2-Iwqowlsuk Bbbyj-6-Ucjbmteay PEP Interpretation Triglycerides TSH CHICA Screen Complement C4 Coronavirus (PCR) 01/19/20 01/19/20 01/19/20 00:12 04:00 04:40 WBC RBC Hgb Hct MCV MCH RDW Plt Count Lymph % (Auto) [place] % (Auto) [place] # [place] # (Auto) Seg Neutrophils % Seg Neuts % (Manual) Lymphocytes % (Manual) Seg Neutrophils # Seg Neutrophils # Man Lymphocytes # (Manual) D-Dimer ABG pH POC ABG pCO2 POC ABG pO2 ABG pO2 117.2 H ABG O2 Saturation ABG Base Excess ABG Oxyhemoglobin ABG HCO3 ABG Hemoglobin 9.7 L Oxyhemoglobin Sodium 146 H Potassium Chloride 111.3 H Carbon Dioxide BUN 38 H Creatinine Glucose 168 H POC Glucose 143 H Lactic Acid Calcium Ferritin AST Magnesium Lactate Dehydrogenase ALT C-Reactive Protein Total Protein Albumin Eybne-1-Vmaqevstb Qqfgx-5-Cxbpknmlz PEP Interpretation Triglycerides TSH CHICA Screen Complement C4 Coronavirus (PCR) 01/19/20 01/19/20 01/19/20 05:41 12:02 18:13 WBC RBC Hgb Hct MCV MCH RDW Plt Count Lymph % (Auto) [place] % (Auto) [place] # [place] # (Auto) Seg Neutrophils % Seg Neuts % (Manual) Lymphocytes % (Manual) Seg Neutrophils # Seg Neutrophils # Man Lymphocytes # (Manual) D-Dimer ABG pH POC ABG pCO2 POC ABG pO2 ABG pO2 ABG O2 Saturation ABG Base Excess ABG Oxyhemoglobin ABG HCO3 ABG Hemoglobin Oxyhemoglobin Sodium Potassium Chloride Carbon Dioxide BUN Creatinine Glucose POC Glucose 171 H 208 H 272 H Lactic Acid Calcium Ferritin AST Magnesium Lactate Dehydrogenase ALT C-Reactive Protein Total Protein Albumin Huvym-2-Fsdmfxsmc Rrhbs-2-Baudtorst PEP Interpretation Triglycerides TSH CHICA Screen Complement C4 Coronavirus (PCR) 01/20/20 01/20/20 01/20/20 00:13 04:21 05:30 WBC RBC Hgb Hct MCV MCH RDW Plt Count Lymph % (Auto) [place] % (Auto) [place] # [place] # (Auto) Seg Neutrophils % Seg Neuts % (Manual) Lymphocytes % (Manual) Seg Neutrophils # Seg Neutrophils # Man Lymphocytes # (Manual) D-Dimer ABG pH POC ABG pCO2 POC ABG pO2 ABG pO2 ABG O2 Saturation ABG Base Excess ABG Oxyhemoglobin ABG HCO3 26.8 H ABG Hemoglobin 10.7 L Oxyhemoglobin 94.3 L Sodium Potassium Chloride Carbon Dioxide BUN Creatinine Glucose POC Glucose 223 H 129 H Lactic Acid Calcium Ferritin AST Magnesium Lactate Dehydrogenase ALT C-Reactive Protein Total Protein Albumin Amnvx-5-Wvpyipbyp Hafpq-2-Ovqukejnd PEP Interpretation Triglycerides TSH CHICA Screen Complement C4 Coronavirus (PCR) 01/20/20 01/20/20 01/20/20 11:14 11:14 11:14 WBC RBC Hgb Hct MCV MCH RDW Plt Count Lymph % (Auto) [place] % (Auto) Burnet # Burnet # (Auto) Seg Neutrophils % Seg Neuts % (Manual) Lymphocytes % (Manual) Seg Neutrophils # Seg Neutrophils # Man Lymphocytes # (Manual) D-Dimer 1221.96 H ABG pH POC ABG pCO2 POC ABG pO2 ABG pO2 ABG O2 Saturation ABG Base Excess ABG Oxyhemoglobin ABG HCO3 ABG Hemoglobin Oxyhemoglobin Sodium Potassium Chloride Carbon Dioxide BUN Creatinine Glucose POC Glucose Lactic Acid Calcium Ferritin 364.6 H AST Magnesium Lactate Dehydrogenase 403 H ALT C-Reactive Protein 5.10 H Total Protein Albumin Jywqk-1-Dtafeawlk Oupjy-6-Iaqmhtkho PEP Interpretation Triglycerides TSH CHICA Screen Complement C4 Coronavirus (PCR) 01/20/20 01/20/20 01/20/20 12:01 18:10 23:07 WBC RBC Hgb Hct MCV MCH RDW Plt Count Lymph % (Auto) Burnet % (Auto) Burnet # Burnet # (Auto) Seg Neutrophils % Seg Neuts % (Manual) Lymphocytes % (Manual) Seg Neutrophils # Seg Neutrophils # Man Lymphocytes # (Manual) D-Dimer ABG pH POC ABG pCO2 POC ABG pO2 ABG pO2 ABG O2 Saturation ABG Base Excess ABG Oxyhemoglobin ABG HCO3 ABG Hemoglobin Oxyhemoglobin Sodium Potassium Chloride Carbon Dioxide BUN Creatinine Glucose POC Glucose 260 H 317 H 237 H Lactic Acid Calcium Ferritin AST Magnesium Lactate Dehydrogenase ALT C-Reactive Protein Total Protein Albumin Rzvqi-9-Ayhpmtums Wrsan-6-Sovosglkh PEP Interpretation Triglycerides TSH CHICA Screen Complement C4 Coronavirus (PCR) 01/21/20 01/21/20 01/21/20 05:25 05:25 05:42 WBC 11.3 H RBC Hgb 9.1 L Hct 28.9 L MCV 77 L MCH 24 L RDW Plt Count Lymph % (Auto) Burnet % (Auto) Burnet # Burnet # (Auto) Seg Neutrophils % Seg Neuts % (Manual) Lymphocytes % (Manual) Seg Neutrophils # Seg Neutrophils # Man Lymphocytes # (Manual) D-Dimer ABG pH POC ABG pCO2 POC ABG pO2 ABG pO2 ABG O2 Saturation ABG Base Excess ABG Oxyhemoglobin ABG HCO3 ABG Hemoglobin Oxyhemoglobin Sodium 147 H Potassium Chloride 111.0 H Carbon Dioxide 31 H D BUN 20 H Creatinine Glucose 103 H POC Glucose 110 H Lactic Acid Calcium 8.2 L Ferritin AST Magnesium Lactate Dehydrogenase ALT C-Reactive Protein Total Protein Albumin Tkcwp-1-Emriakjwi Rcxia-6-Nldqugjoj PEP Interpretation Triglycerides TSH CHICA Screen Complement C4 Coronavirus (PCR) 01/21/20 01/21/20 01/21/20 11:49 18:41 21:53 WBC RBC Hgb Hct MCV MCH RDW Plt Count Lymph % (Auto) Burnet % (Auto) Burnet # Burnet # (Auto) Seg Neutrophils % Seg Neuts % (Manual) Lymphocytes % (Manual) Seg Neutrophils # Seg Neutrophils # Man Lymphocytes # (Manual) D-Dimer ABG pH POC ABG pCO2 POC ABG pO2 ABG pO2 ABG O2 Saturation ABG Base Excess ABG Oxyhemoglobin ABG HCO3 ABG Hemoglobin Oxyhemoglobin Sodium Potassium Chloride Carbon Dioxide BUN Creatinine Glucose POC Glucose 147 H 290 H 255 H Lactic Acid Calcium Ferritin AST Magnesium Lactate Dehydrogenase ALT C-Reactive Protein Total Protein Albumin Syuek-2-Xysyvzytr Xkius-1-Uhzczzxvd PEP Interpretation Triglycerides TSH CHICA Screen Complement C4 Coronavirus (PCR) 01/22/20 01/22/20 01/22/20 03:35 04:42 05:23 WBC RBC Hgb Hct MCV MCH RDW Plt Count Lymph % (Auto) Burnet % (Auto) Burnet # Burnet # (Auto) Seg Neutrophils % Seg Neuts % (Manual) Lymphocytes % (Manual) Seg Neutrophils # Seg Neutrophils # Man Lymphocytes # (Manual) D-Dimer ABG pH 7.46 H POC ABG pCO2 POC ABG pO2 ABG pO2 ABG O2 Saturation ABG Base Excess ABG Oxyhemoglobin ABG HCO3 ABG Hemoglobin 10.4 L Oxyhemoglobin Sodium 148 H Potassium 3.5 L Chloride 108.1 H Carbon Dioxide BUN 19 H Creatinine Glucose 159 H POC Glucose 173 H Lactic Acid Calcium 8.1 L Ferritin AST Magnesium Lactate Dehydrogenase ALT C-Reactive Protein Total Protein Albumin Zqagd-2-Hyziepljl Mfvbp-9-Ppwnqkoqg PEP Interpretation Triglycerides TSH CHICA Screen Complement C4 Coronavirus (PCR) 01/22/20 01/22/20 01/22/20 12:41 17:46 23:06 WBC RBC Hgb Hct MCV MCH RDW Plt Count Lymph % (Auto) Burnet % (Auto) Burnet # Burnet # (Auto) Seg Neutrophils % Seg Neuts % (Manual) Lymphocytes % (Manual) Seg Neutrophils # Seg Neutrophils # Man Lymphocytes # (Manual) D-Dimer ABG pH POC ABG pCO2 POC ABG pO2 ABG pO2 ABG O2 Saturation ABG Base Excess ABG Oxyhemoglobin ABG HCO3 ABG Hemoglobin Oxyhemoglobin Sodium Potassium Chloride Carbon Dioxide BUN Creatinine Glucose POC Glucose 284 H 245 H 245 H Lactic Acid Calcium Ferritin AST Magnesium Lactate Dehydrogenase ALT C-Reactive Protein Total Protein Albumin Rogyb-8-Dcxyndobd Ergue-6-Vtrawmmhv PEP Interpretation Triglycerides TSH CHICA Screen Complement C4 Coronavirus (PCR) 01/23/20 01/23/20 01/23/20 05:50 06:10 06:10 WBC RBC Hgb Hct MCV MCH RDW Plt Count Lymph % (Auto) Burnet % (Auto) Burnet # Burnet # (Auto) Seg Neutrophils % Seg Neuts % (Manual) Lymphocytes % (Manual) Seg Neutrophils # Seg Neutrophils # Man Lymphocytes # (Manual) D-Dimer 451.53 H ABG pH POC ABG pCO2 POC ABG pO2 ABG pO2 ABG O2 Saturation ABG Base Excess ABG Oxyhemoglobin ABG HCO3 ABG Hemoglobin Oxyhemoglobin Sodium Potassium Chloride 110.3 H Carbon Dioxide BUN 19 H Creatinine 0.5 L Glucose 178 H POC Glucose 184 H Lactic Acid Calcium 7.6 L Ferritin AST Magnesium Lactate Dehydrogenase ALT C-Reactive Protein 3.30 H Total Protein Albumin Ivxjc-6-Hikhkarng Ochwb-9-Mwkcxsqfp PEP Interpretation Triglycerides TSH CHICA Screen Complement C4 Coronavirus (PCR) 01/23/20 01/23/20 01/23/20 12:29 17:57 22:15 WBC 12.8 H RBC Hgb 9.7 L Hct MCV 77 L MCH 25 L RDW Plt Count Lymph % (Auto) Burnet % (Auto) 9.1 H Burnet # Burnet # (Auto) 1.2 H Seg Neutrophils % Seg Neuts % (Manual) Lymphocytes % (Manual) Seg Neutrophils # 8.6 H Seg Neutrophils # Man Lymphocytes # (Manual) D-Dimer ABG pH POC ABG pCO2 POC ABG pO2 ABG pO2 ABG O2 Saturation ABG Base Excess ABG Oxyhemoglobin ABG HCO3 ABG Hemoglobin Oxyhemoglobin Sodium Potassium Chloride Carbon Dioxide BUN Creatinine Glucose POC Glucose 258 H 248 H Lactic Acid Calcium Ferritin AST Magnesium Lactate Dehydrogenase ALT C-Reactive Protein Total Protein Albumin Erjmw-6-Bmumjacpa Gnkfn-3-Shstuihwy PEP Interpretation Triglycerides TSH CHICA Screen Complement C4 Coronavirus (PCR) 01/23/20 01/24/20 01/24/20 23:28 06:00 06:00 WBC 12.4 H RBC Hgb 9.3 L Hct 28.6 L MCV 77 L MCH 25 L RDW Plt Count Lymph % (Auto) Burnet % (Auto) 8.7 H Burnet # Burnet # (Auto) 1.1 H Seg Neutrophils % 71.2 H Seg Neuts % (Manual) Lymphocytes % (Manual) Seg Neutrophils # 8.8 H Seg Neutrophils # Man Lymphocytes # (Manual) D-Dimer ABG pH POC ABG pCO2 POC ABG pO2 ABG pO2 ABG O2 Saturation ABG Base Excess ABG Oxyhemoglobin ABG HCO3 ABG Hemoglobin Oxyhemoglobin Sodium Potassium 3.4 L Chloride 107.3 H Carbon Dioxide BUN Creatinine Glucose POC Glucose 200 H Lactic Acid Calcium Ferritin AST Magnesium Lactate Dehydrogenase ALT C-Reactive Protein Total Protein Albumin Rhfjk-0-Beefrkllc Khyqq-4-Lrcyxhrvt PEP Interpretation Triglycerides TSH CHICA Screen Complement C4 Coronavirus (PCR) 01/24/20 01/24/20 01/24/20 10:02 12:31 17:59 WBC RBC Hgb Hct MCV MCH RDW Plt Count Lymph % (Auto) Burnet % (Auto) Burnet # Burnet # (Auto) Seg Neutrophils % Seg Neuts % (Manual) Lymphocytes % (Manual) Seg Neutrophils # Seg Neutrophils # Man Lymphocytes # (Manual) D-Dimer ABG pH POC ABG pCO2 POC ABG pO2 ABG pO2 ABG O2 Saturation ABG Base Excess ABG Oxyhemoglobin ABG HCO3 ABG Hemoglobin Oxyhemoglobin Sodium Potassium Chloride Carbon Dioxide BUN Creatinine Glucose POC Glucose 161 H 252 H 182 H Lactic Acid Calcium Ferritin AST Magnesium Lactate Dehydrogenase ALT C-Reactive Protein Total Protein Albumin Ajphp-4-Rrczfjoyn Pqzsw-9-Hfdlbqgfj PEP Interpretation Triglycerides TSH CHICA Screen Complement C4 Coronavirus (PCR) 01/25/20 01/25/20 01/25/20 00:21 05:43 12:01 WBC RBC Hgb Hct MCV MCH RDW Plt Count Lymph % (Auto) Burnet % (Auto) Burnet # Burnet # (Auto) Seg Neutrophils % Seg Neuts % (Manual) Lymphocytes % (Manual) Seg Neutrophils # Seg Neutrophils # Man Lymphocytes # (Manual) D-Dimer ABG pH POC ABG pCO2 POC ABG pO2 ABG pO2 ABG O2 Saturation ABG Base Excess ABG Oxyhemoglobin ABG HCO3 ABG Hemoglobin Oxyhemoglobin Sodium Potassium Chloride Carbon Dioxide BUN Creatinine Glucose POC Glucose 125 H 132 H 215 H Lactic Acid Calcium Ferritin AST Magnesium Lactate Dehydrogenase ALT C-Reactive Protein Total Protein Albumin Mnmgb-3-Blrbbpssk Jwyus-1-Fqqskoaew PEP Interpretation Triglycerides TSH CHICA Screen Complement C4 Coronavirus (PCR) 01/25/20 01/26/20 01/26/20 18:23 00:20 04:43 WBC RBC Hgb Hct MCV MCH RDW Plt Count Lymph % (Auto) Burnet % (Auto) Burnet # Burnet # (Auto) Seg Neutrophils % Seg Neuts % (Manual) Lymphocytes % (Manual) Seg Neutrophils # Seg Neutrophils # Man Lymphocytes # (Manual) D-Dimer 864.61 H ABG pH POC ABG pCO2 POC ABG pO2 ABG pO2 ABG O2 Saturation ABG Base Excess ABG Oxyhemoglobin ABG HCO3 ABG Hemoglobin Oxyhemoglobin Sodium Potassium Chloride Carbon Dioxide BUN Creatinine Glucose POC Glucose 213 H 173 H Lactic Acid Calcium Ferritin AST Magnesium Lactate Dehydrogenase ALT C-Reactive Protein Total Protein Albumin Prhnv-8-Obpieznme Fjbea-4-Yhdmuvmik PEP Interpretation Triglycerides TSH CHICA Screen Complement C4 Coronavirus (PCR) 01/26/20 01/26/20 01/26/20 04:43 04:43 05:45 WBC RBC Hgb Hct MCV MCH RDW Plt Count Lymph % (Auto) Burnet % (Auto) Burnet # Burnet # (Auto) Seg Neutrophils % Seg Neuts % (Manual) Lymphocytes % (Manual) Seg Neutrophils # Seg Neutrophils # Man Lymphocytes # (Manual) D-Dimer ABG pH POC ABG pCO2 POC ABG pO2 ABG pO2 ABG O2 Saturation ABG Base Excess ABG Oxyhemoglobin ABG HCO3 ABG Hemoglobin Oxyhemoglobin Sodium Potassium Chloride Carbon Dioxide BUN Creatinine Glucose POC Glucose 131 H Lactic Acid Calcium Ferritin 267.6 H AST Magnesium Lactate Dehydrogenase 319 H ALT C-Reactive Protein 8.90 H Total Protein Albumin Homru-2-Nhbabhqur Wghdg-8-Tdizzuwuw PEP Interpretation Triglycerides TSH CHICA Screen Complement C4 Coronavirus (PCR) 01/26/20 01/26/20 01/26/20 10:37 10:37 12:05 WBC RBC 3.51 L Hgb 8.8 L Hct 27.1 L MCV 77 L MCH 25 L RDW Plt Count Lymph % (Auto) Burnet % (Auto) 7.8 H Burnet # Burnet # (Auto) Seg Neutrophils % 74.0 H Seg Neuts % (Manual) Lymphocytes % (Manual) Seg Neutrophils # 8.0 H Seg Neutrophils # Man Lymphocytes # (Manual) D-Dimer ABG pH POC ABG pCO2 POC ABG pO2 ABG pO2 ABG O2 Saturation ABG Base Excess ABG Oxyhemoglobin ABG HCO3 ABG Hemoglobin Oxyhemoglobin Sodium Potassium 3.5 L Chloride Carbon Dioxide BUN Creatinine Glucose 124 H POC Glucose 137 H Lactic Acid Calcium Ferritin AST 49 H Magnesium Lactate Dehydrogenase ALT 81 H C-Reactive Protein Total Protein 5.6 L Albumin 2.6 L Nlpyo-4-Icgepulln Rtpbr-5-Tearnpirt PEP Interpretation Triglycerides TSH CHICA Screen Complement C4 Coronavirus (PCR) 01/26/20 01/26/20 01/27/20 16:50 23:22 05:37 WBC RBC Hgb Hct MCV MCH RDW Plt Count Lymph % (Auto) Burnet % (Auto) Burnet # Burnet # (Auto) Seg Neutrophils % Seg Neuts % (Manual) Lymphocytes % (Manual) Seg Neutrophils # Seg Neutrophils # Man Lymphocytes # (Manual) D-Dimer ABG pH POC ABG pCO2 POC ABG pO2 ABG pO2 ABG O2 Saturation ABG Base Excess ABG Oxyhemoglobin ABG HCO3 ABG Hemoglobin Oxyhemoglobin Sodium Potassium Chloride Carbon Dioxide BUN Creatinine Glucose POC Glucose 145 H 200 H 168 H Lactic Acid Calcium Ferritin AST Magnesium Lactate Dehydrogenase ALT C-Reactive Protein Total Protein Albumin Gsgbo-7-Xlgfxkjdz Leizj-1-Xpwekihmk PEP Interpretation Triglycerides TSH CHICA Screen Complement C4 Coronavirus (PCR) 01/27/20 11:36 WBC RBC Hgb Hct MCV MCH RDW Plt Count Lymph % (Auto) Burnet % (Auto) Burnet # Burnet # (Auto) Seg Neutrophils % Seg Neuts % (Manual) Lymphocytes % (Manual) Seg Neutrophils # Seg Neutrophils # Man Lymphocytes # (Manual) D-Dimer ABG pH POC ABG pCO2 POC ABG pO2 ABG pO2 ABG O2 Saturation ABG Base Excess ABG Oxyhemoglobin ABG HCO3 ABG Hemoglobin Oxyhemoglobin Sodium Potassium Chloride Carbon Dioxide BUN Creatinine Glucose POC Glucose 210 H Lactic Acid Calcium Ferritin AST Magnesium Lactate Dehydrogenase ALT C-Reactive Protein Total Protein Albumin Kknro-2-Odbkfvefy Zhthk-1-Derijzpwj PEP Interpretation Triglycerides TSH CHICA Screen Complement C4 Coronavirus (PCR) Allied health notes reviewed: nursing
--- NOTE | 2020-01-27 21:29 | Progress Note ---
Assessment and Plan Subjective Date of service: 01/21/20 Principal diagnosis: Ac. hypoxemic resp failure; COVID infection; PNA; ARACELI; Thrombocytopenia Interval history: Assessment and plan Acute hypoxic respiratory failure. secondary to COVID-19 infection. Patient remains on mechanical ventilation. Pulmonary following. ABG results reviewed Patient is on 30% FiO2 and PEEP of 8 Wean as tolerated COVID-19 pneumonia. Patient was initially diagnosed 8 days prior to admission. Inflammatory markers reviewed. ID following. Continue dexamethasone 6 mg IV for completion of 10 days (day 9 of 10). Treated with remdesivir for 4 days and stopped on 01/17/2020 per ID recommendation because of bradycardia. Continue to trend inflammatory markers. Continue full dose anticoagulation given the high d-dimer. Sepsis. Etiology secondary to above. Off antibiotics Morbid obesity. Counseling once patient is extubated Severe bradycardia : Resolved. cardiology consult note reviewed Likely secondary to Decadron/ ? remdesivir No further recommendations Elevated LFTs/transaminitis.-Improved Etiology likely secondary to sepsis/COVID-19 Acute kidney injury. Improved Etiology secondary to sepsis/ATN. Discussed with Dr. Sheikh. Nephrology signed off Hypernatremia Secondary to dehydration Resolved Serum sodium down to 146 Hyperkalemia. Resolved Etiology likely secondary to above. Hypertension Intermittently uncontrolled, most likely secondary to agitation/anxiety Will down regulate blood pressure medication Subjective Date of service: 01/27/20 Principal diagnosis: Ac. hypoxemic resp failure; COVID infection; PNA; ARACELI; Thrombocytopenia Interval history: History of present illness: 39 YO Female with MO, Obesity Hypoventilation Syndrome, DM, Asthma presents to ED for evaluation. Patient states that she has experienced shortness of breath over the past 3 days with worsening symptoms over the past 1 day. Patient also acknowledges nonproductive cough, malaise, weakness, fatigue, decreased exercise tolerance, subjective fever and body aches. Patient states that she tested positive for coronavirus 8 days ago and has experienced worsening symptoms over the past 3 days. EMS was notified and upon arrival the patient was found to be in distress. Patient placed on submental oxygen and transported to [facility] for further care and evaluation. Patient seen and evaluated in the emergency department. Lab and imaging studies reviewed. Patient found to have a pulse oximetry of 80% on room air which is consistent with acute hypoxemic respiratory failure as well as a fever with a temperature of 101.3 F. Patient underwent chest x-ray which revealed bilateral pneumonia which was complicated by sepsis. Patient admitted to medical floor and initiated on pneumonia protocol as well as COVID-19 protocol as well as sepsis protocol. Patient denies chills, chest pain, palpitations, productive cough, skin rash, recent ill contacts. Patient acknowledges positive coronavirus infection. No prior admission for review. All medication listed at time of admission has been reconciled. Coronavirus PCR has been ordered and is pending at time of admission. 01/16/2020; patient is still on mechanical ventilation FiO2 40, PEEP 14, patient is on fentanyl, Versed, propofol. Patient proned. We will continue to monitor. Patient is off IV antibiotics. Treated for 5 days with IV ceftriaxone. ID, nephrology and pulmonary consult appreciated 01/17/2020; patient is still on mechanical ventilation FiO2 40, PEEP 14, patient is on fentanyl, Versed, propofol. Patient proned. We will continue to monitor. Patient is off IV antibiotics. Treated for 5 days with IV ceftriaxone. ID, nephrology and pulmonary consult appreciated. Patient has elevated sodium level and advised to increase free water intake through the NG tube feeding. 01/18/2020; patient is still on mechanical ventilation with FiO2 of 40 and PEEP of 14 patient is on fentanyl and Versed for sedation. Patient is on dexamethasone day 7 and probably severe was stopped yesterday after fourth dose per ID recommendation, patient is bradycardic. Cardiology was consulted and recommend to follow her closely. If heart rates below 40 we want to give her atropine. I discussed the management plan with her father Mr. Baxter in detail at [phone]. Mr. Baxter said his daughter was suffering from asthma and bipolar disorder. 01/19/20; patient is on mechanical ventilation FiO2 of 35 and PEEP of 8, patient is on fentanyl and Versed for sedation. Patient is on dexamethasone day 8. From the severe discontinued after she took for 4 days per ID recommendation due to bradycardia. Cardiology and nephrology consult appreciated. Discussed with her father in detail about the management plan on 01/18/2020. Continue with the same management. Vent management as per willow machine tender. 01/19 patient remains on vent, on FiO2 of 30% and PEEP of 8. She is on Diprivan and fentanyl. Per discussion with RN ,patient is anxious and intermittently agitated. Patient is awake and alert. Unable to perform review of systems secondary to patient being intubated. All interdisciplinary notes reviewed Lab results reviewed 01/20 no acute events overnight, groggy secondary to sedation, opens eyes to verbal stimulus, yesterday's events noted, BP now well controlled with heart rate also in the normal range. Will adjust blood pressure medication 01/22/20 no acute events overnight, opens eyes to verbal stimulus, yesterday's events noted, BP now well controlled with heart rate also in the normal range. Will adjust blood pressure medication 01/23/2020--patient being weaned so that he can be extubated 01/24/2020 patient extubated today 01/25/2020 patient on BiPAP 01/26/2020 patient still on oxygen 01/27/2020 patient still on high flow oxygen about 30 L Objective - Constitutional Vitals: Vital Signs - 12hr 01/27/20 01/27/20 01/27/20 10:25 11:21 14:43 Temperature 98.2 F Pulse Rate 126 H 124 H Respiratory 24 Rate Blood Pressure 128/64 184/89 O2 Sat by Pulse 97 98 Oximetry 01/27/20 01/27/20 16:50 20:47 Temperature 98.2 F Pulse Rate 124 H Respiratory 28 H Rate Blood Pressure 162/87 O2 Sat by Pulse 95 98 Oximetry General appearance: Present: no acute distress, well-nourished - EENT Eyes: PERRL, EOM intact ENT: hearing intact, clear oral mucosa Ears: bilateral: normal - Neck Neck: supple, normal ROM - Respiratory Respiratory effort: normal Respiratory: bilateral: CTA - Breasts Breasts: normal - Cardiovascular Heart rate: 78 Rhythm: regular Heart Sounds: Present: S1 & S2. Absent: gallop, rub Extremities: pulses intact, No edema, normal color, Full ROM - Gastrointestinal General gastrointestinal: Present: soft, non-tender, non-distended, normal bowel sounds - Genitourinary Female genitourinary: normal - Integumentary Integumentary: clear, warm, dry - Musculoskeletal Musculoskeletal: 1, strength equal bilaterally - Neurologic Neurologic: moves all extremities - Psychiatric Psychiatric: memory intact, appropriate mood/affect, intact judgment & insight - Allied health notes Allied health notes reviewed: nursing, case management - Labs CBC & Chem 7: 01/26/20 10:37 01/26/20 10:37 Labs: Abnormal lab results 10/07/1201/27/20 01/27/20 Range/Units 23:22 05:37 11:36 POC Glucose 200 H 168 H 210 H (70-105) 01/27/20 Range/Units 17:06 POC Glucose 174 H (70-105)
[2020-01-27] MEDS: ENOXAPARIN 40 MG/0.4 ML INJ SUB-Q SCH (22:28)
[2020-01-28] MEDS: ACETAMINOPHEN 325 MG TAB PO PRN (02:51)
[2020-01-28] MEDS: hydrALAZINE 25 MG TAB PO SCH ×3 (05:58→21:37)
[2020-01-28] MEDS: INSULIN LISPRO 100 UNIT/ML VIAL 3 mL SUB-Q SCH ×4 (06:16→18:08)
[2020-01-28] MEDS ORDERED: PHENOL 1.4% 177 ML BOTTLE MM PRN (06:29)
--- NOTE | 2020-01-28 09:21 | Progress Note ---
<MONICA LINTON - Last Filed: 01/28/20 09:19> Assessment and Plan Sinus bradycardia, resolved. Now with intermittent physiologic sinus tachycardia TSH 0.221 COVID -19 viral pneumonia Respiratory failure Diabetes No specific treatment indicated for physiologic sinus tachycardia. The presence of intermittent sinus tachycardia is a positive finding that shows that her previous bradycardia was not due to sinus node malfunction. Conservative cardiac management. We will follow intermittently. Subjective Date of service: 01/28/20 Principal diagnosis: Ac. hypoxemic resp failure; COVID infection; PNA; ARACELI; Thrombocytopenia Interval history: Sinus tachycardia on telemetry. Objective Vital Signs Temp Pulse Pulse Resp BP BP Pulse Ox 01/28/20 05:58 121 H 130/70 01/28/20 05:27 98.4 F 121 H 22 130/70 95 01/28/20 05:13 98 01/28/20 05:06 98 01/28/20 02:51 99.1 F 129 H 158/80 01/28/20 02:00 98 01/27/20 22:30 123 H 178/96 01/27/20 22:29 123 H 178/96 01/27/20 22:14 98.0 F 122 H 26 H 178/96 96 01/27/20 22:00 122 H 20 96 01/27/20 20:47 98 01/27/20 16:50 98.2 F 124 H 28 H 162/87 95 01/27/20 14:43 98 01/27/20 11:21 98.2 F 124 H 24 184/89 97 01/27/20 10:25 126 H 128/64 - Physical Examination Narrative exam: Deferred due to isolation protocol. - Allied health notes Allied health notes reviewed: RT <HAIR RHODES - Last Filed: 01/28/20 20:42> Assessment and Plan - Patient Problems (1) Pneumonia Current Visit: Yes Status: Acute (2) Acute hypoxemic respiratory failure Current Visit: Yes Status: Acute Subjective Interval history: I SAW THIS PT & AGREE WITH THE Dx & Tx PLAN Objective Vital Signs Temp Pulse Pulse Resp BP BP Pulse Ox 01/28/20 20:03 78 191/98 01/28/20 16:46 98.9 F 118 H 24 216/97 96 01/28/20 11:30 98.8 F 120 H 24 150/85 97 10/05/20 10:00 100 01/28/20 09:36 121 H 130/70 01/28/20 05:58 121 H 130/70 01/28/20 05:27 98.4 F 121 H 22 130/70 95 01/28/20 05:13 98 01/28/20 05:06 98 01/28/20 02:51 99.1 F 129 H 158/80 01/28/20 02:00 98 01/27/20 22:30 123 H 178/96 01/27/20 22:29 123 H 178/96 01/27/20 22:14 98.0 F 122 H 26 H 178/96 96 01/27/20 22:00 122 H 20 96 01/27/20 20:47 98
[2020-01-28] MEDS: clonazePAM 0.5 MG TAB PO SCH ×2 (09:35→21:37)
[2020-01-28] MEDS: cloNIDine 0.1 MG TAB PO SCH ×2 (09:36→21:37)
[2020-01-28] MEDS: INSULIN GLARGINE 100 UNITS/ML SUB-Q SCH (09:37)
[2020-01-28] MEDS: FAMOTIDINE 20 MG TAB PO SCH ×2 (09:37→21:38)
[2020-01-28] MEDS: QUEtiapine 200 MG TAB PO SCH ×2 (10:03→21:38)
--- NOTE | 2020-01-28 11:41 | Progress Note ---
Assessment and Plan Cultures: Blood culture 01/11/2020 no growth today Urine culture 01/11/2020 10-100,000 normal skin cristina Tracheal aspirate a 01/13/2020 no growth 01/22/2020 Blood culture: no growth A/P: 39-year-old female past medical history morbid obesity, diabetes admitted with severe COVID-19 pneumonia. #Sepsis: secondary to COVID-19 pneumonia. New fever being worked up. No clear source found yet. #Acute hypoxemic respiratory failure: Likely secondary to COVID-19 infection. Extubated 01/24/2020. #COVID-19 pneumonia: Very high d-dimer on admission. Completed ceftriaxone. Completed Remdesivir. Completed steroids 01/25/2020. #Morbid obesity: BMI=52. Associated with worse COVID-19 outcomes #Transaminitis: Likely related to COVID-19 #ARACELI: Resolved #Bradycardia: Resolved. Recs: -all cultures negative, fever resolved. Abx discontinued -anticoagulation per protocol based on d-dimer -recheck CRP and d-dimer in AM -eval for home oxygen Lynn Song MD, FACP [facility] C: [phone] O: [phone] F: [phone] Subjective Date of service: 01/28/20 Principal diagnosis: Ac. hypoxemic resp failure; COVID infection; PNA; ARACELI; Thrombocytopenia Interval history: No fever. Oxygen weaned to 3 lit/min by [place]. Objective - Exam Narrative Exam: Physical Exam (reviewed in chart due to PPE conservation and minimize risk of transmission) Constitutional: limited due to PPE conservation strategy Head, Ears, Nose: limited due to PPE conservation strategy Eyes: limited due to PPE conservation strategy Neck: limited due to PPE conservation strategy Oral: limited due to PPE conservation strategy Cardiovascular: limited due to PPE conservation strategy Respiratory: limited due to PPE conservation strategy GI: limited due to PPE conservation strategy Musculoskeletal: limited due to PPE conservation strategy Skin: limited due to PPE conservation strategy Hem/Lymphatic: limited due to PPE conservation strategy Psych: limited due to PPE conservation strategy Neurological: limited due to PPE conservation strategy - Constitutional Vitals: Vital Signs Temp Pulse Resp BP Pulse Ox 98.4 F 121 H 22 130/70 95 01/28/20 05:27 01/28/20 09:36 01/28/20 05:27 01/28/20 09:36 01/28/20 05:27 Temperature -Last 24 Hours Temperature 98.4 F Temperature 99.1 F Temperature 98.0 F Temperature 98.2 F - Labs CBC & Chem 7: 01/26/20 10:37 01/26/20 10:37 Labs: Abnormal lab results 01/27/20 01/27/20 01/27/20 Range/Units 11:36 17:06 22:28 POC Glucose 210 H 174 H 169 H (70-105) 01/28/20 Range/Units 05:46 POC Glucose 149 H (70-105)
--- NOTE | 2020-01-28 19:36 | XRay Report ---
ABDOMEN 1 VIEW(S) 01/28/2020 6:19 PM INDICATION / CLINICAL INFORMATION: NG tube placement. COMPARISON: 01/21/2020 FINDINGS: The tip of an esophagogastric tube projects over the body of the stomach in expected position. Signer Name: Silvio Pruitt MD Signed: 01/28/2020 7:31 PM Workstation Name: [id number]
--- NOTE | 2020-01-28 19:36 | Progress Note ---
Assessment and Plan Patient awake. Resting on 4 litres O2. O2 saturation 96%. Patient having cough. No acute respiratory distress. Patient afebrile. No leukocytosis. Patient COVID Positive. Patient has CTA of chest 01/23/20 reported Slightly limited contrast b olus. No large central pulmonary embolus is detected. Scattered bilateral lung opacities concerning for viral infection. Mild bilateral atelectatic changes. D dimer 864. Patient was treated with remdesvir, dexamethasone, Ceftriaxone and Zithromax. Patient is on S/C Lovenox and Famotidine. - Patient Problems (1) Acute hypoxemic respiratory failure Current Visit: Yes Status: Acute Plan to address problem: O2 4 litres via nasal canula. Pro air 2 puffs po qid. Continue S/C Lovenox. Continue famotidine. (2) Pneumonia Current Visit: Yes Status: Acute Plan to address problem: Patient treated with Zithromax and ceftriaxone. Antibiotics as per ID. (3) Anxiety Current Visit: No Status: Acute Plan to address problem: Management as per Primary care. (4) COVID-19 virus infection Current Visit: Yes Status: Acute Plan to address problem: Patient treated with remdesvir and dexamethasone. and S/C Lovenox. Subjective Date of service: 01/28/20 Principal diagnosis: Ac. hypoxemic resp failure; COVID infection; PNA; ARACELI; Thrombocytopenia Interval history: Patient awake. Resting on 4 litres O2. O2 saturation 96%. Patient having cough. No acute respiratory distress. Patient afebrile. No leukocytosis. Patient COVID Positive. Patient has CTA of chest 01/23/20 reported Slightly limited contrast bolus. No large central pulmonary embolus is detected. Scattered bilateral lung opacities concerning for viral infection. Mild bilateral atelectatic changes. D dimer 864. Patient was treated with remdesvir, dexamethasone, Ceftriaxone and Zithromax. Patient is on S/C Lovenox and Famotidine. Objective Vital Signs - 12hr 01/28/20 01/28/20 01/28/20 09:36 10:00 11:30 Temperature 98.8 F Pulse Rate 121 H 120 H Respiratory 24 Rate Blood Pressure 130/70 150/85 O2 Sat by Pulse 100 97 Oximetry 01/28/20 16:46 Temperature 98.9 F Pulse Rate 118 H Respiratory 24 Rate Blood Pressure 216/97 O2 Sat by Pulse 96 Oximetry Constitutional: no acute distress, alert, other (Morbidly obese AAW, NGT in nare s) Eyes: non-icteric ENT: oropharynx moist Neck: supple, no lymphadenopathy, no JVD Effort: mildly labored Ascultation: Bilateral: diminished breath sounds, rhonchi Percussion: Bilateral: not dull Cardiovascular: regular rate and rhythm, other Gastrointestinal: normoactive bowel sounds, soft, non-tender, non-distended (protuberant) Integumentary: normal Extremities: no cyanosis, no edema, pulses normal, no ischemia or petechiae Neurologic: normal mental status, non-focal exam, pupils equal and round, CN II- XII normal, motor strength normal and Psychiatric: anxious CBC and BMP: 01/29/20 07:32 01/29/20 07:32 ABG, PT/INR, D-dimer: ABG ABG pH 7.46 (7.320-7.450) H 01/22/20 03:35 POC ABG pCO2 36.6 mmHg (32.0-48.0) 01/22/20 03:35 ABG pCO2 46.1 mm Hg 01/20/20 04:21 POC ABG pO2 84.0 mmHg (83-108) 01/22/20 03:35 ABG pO2 81.7 mm Hg (80.0-90.0) 01/20/20 04:21 POC ABG HCO3 25.4 01/22/20 03:35 ABG O2 Saturation 96.5 % (95.0-99.0) 01/20/20 04:21 PT/INR, D-dimer D-Dimer 864.61 ng/mlDDU (0-234) H 01/26/20 04:43 Abnormal lab findings: Abnormal Labs 01/11/20 01/11/20 01/11/20 17:22 17:22 17:22 WBC RBC Hgb Hct MCV MCH RDW Plt Count Lymph % (Auto) [place] % (Auto) [place] # [place] # (Auto) Seg Neutrophils % Seg Neuts % (Manual) Lymphocytes % (Manual) Seg Neutrophils # Seg Neutrophils # Man Lymphocytes # (Manual) D-Dimer 622.52 H ABG pH POC ABG pCO2 POC ABG pO2 ABG pO2 ABG O2 Saturation ABG Base Excess ABG Oxyhemoglobin ABG HCO3 ABG Hemoglobin Oxyhemoglobin Sodium Potassium Chloride 97.6 L Carbon Dioxide 18 L BUN Creatinine Glucose 199 H POC Glucose Lactic Acid 2.20 H* Calcium Ferritin AST 68 H Magnesium Lactate Dehydrogenase ALT C-Reactive Protein Total Protein Albumin 3.0 L Ogfcf-9-Plwizolyb Iftpb-2-Phiubxkll PEP Interpretation Triglycerides TSH CHICA Screen Complement C4 Coronavirus (PCR) 01/11/20 01/11/20 01/11/20 17:22 17:22 23:29 WBC RBC Hgb Hct MCV MCH RDW Plt Count Lymph % (Auto) [place] % (Auto) [place] # [place] # (Auto) Seg Neutrophils % Seg Neuts % (Manual) Lymphocytes % (Manual) Seg Neutrophils # Seg Neutrophils # Man Lymphocytes # (Manual) D-Dimer ABG pH POC ABG pCO2 POC ABG pO2 ABG pO2 ABG O2 Saturation ABG Base Excess ABG Oxyhemoglobin ABG HCO3 ABG Hemoglobin Oxyhemoglobin Sodium Potassium Chloride Carbon Dioxide BUN Creatinine Glucose 202 H POC Glucose Lactic Acid 2.10 H* Calcium Ferritin 270.3 H AST Magnesium Lactate Dehydrogenase 610 H ALT C-Reactive Protein 23.80 H Total Protein Albumin Ptyay-2-Sbtqyrkzm Skwcg-0-Hdoxxugve PEP Interpretation Triglycerides TSH CHICA Screen Complement C4 Coronavirus (PCR) 01/12/20 01/12/20 01/12/20 07:07 07:07 09:00 WBC RBC 5.31 H Hgb Hct MCV 76 L MCH 25 L RDW 15.5 H Plt Count Lymph % (Auto) 11.2 L [place] % (Auto) [place] # [place] # (Auto) Seg Neutrophils % 85.2 H Seg Neuts % (Manual) Lymphocytes % (Manual) Seg Neutrophils # 9.2 H Seg Neutrophils # Man Lymphocytes # (Manual) D-Dimer ABG pH POC ABG pCO2 POC ABG pO2 ABG pO2 ABG O2 Saturation ABG Base Excess ABG Oxyhemoglobin ABG HCO3 ABG Hemoglobin Oxyhemoglobin Sodium Potassium Chloride Carbon Dioxide 21 L BUN 23 H Creatinine Glucose 206 H POC Glucose Lactic Acid Calcium Ferritin AST Magnesium Lactate Dehydrogenase ALT C-Reactive Protein Total Protein Albumin Uylev-3-Tpygaehcs Lellg-7-Hxfcekpws PEP Interpretation Triglycerides TSH CHICA Screen Complement C4 Coronavirus (PCR) Positive A 01/13/20 01/13/20 01/13/20 01:02 04:45 05:10 WBC RBC Hgb Hct MCV MCH RDW Plt Count Lymph % (Auto) [place] % (Auto) [place] # [place] # (Auto) Seg Neutrophils % Seg Neuts % (Manual) Lymphocytes % (Manual) Seg Neutrophils # Seg Neutrophils # Man Lymphocytes # (Manual) D-Dimer > 42366 H ABG pH 7.19 L POC ABG pCO2 56.2 H POC ABG pO2 44.3 L 62.5 L ABG pO2 ABG O2 Saturation ABG Base Excess ABG Oxyhemoglobin 77.5 L 86.5 L ABG HCO3 ABG Hemoglobin Oxyhemoglobin Sodium Potassium Chloride Carbon Dioxide BUN Creatinine Glucose POC Glucose Lactic Acid Calcium Ferritin AST Magnesium Lactate Dehydrogenase ALT C-Reactive Protein Total Protein Albumin Extpj-3-Papofxuuz Xhtgm-3-Grnbdfddc PEP Interpretation Triglycerides TSH CHICA Screen Complement C4 Coronavirus (PCR) 01/13/20 01/13/20 01/13/20 05:10 05:54 12:07 WBC RBC Hgb Hct MCV MCH RDW Plt Count Lymph % (Auto) [place] % (Auto) [place] # [place] # (Auto) Seg Neutrophils % Seg Neuts % (Manual) Lymphocytes % (Manual) Seg Neutrophils # Seg Neutrophils # Man Lymphocytes # (Manual) D-Dimer ABG pH POC ABG pCO2 POC ABG pO2 ABG pO2 ABG O2 Saturation ABG Base Excess ABG Oxyhemoglobin ABG HCO3 ABG Hemoglobin Oxyhemoglobin Sodium Potassium Chloride Carbon Dioxide BUN Creatinine Glucose POC Glucose 356 H 309 H Lactic Acid Calcium Ferritin AST Magnesium Lactate Dehydrogenase 999 H ALT C-Reactive Protein Total Protein Albumin Fuczj-3-Bcwaxlmpk Qcazd-2-Sviokoyyh PEP Interpretation Triglycerides TSH CHICA Screen Complement C4 Coronavirus (PCR) 01/13/20 01/13/20 01/13/20 12:54 18:46 18:50 WBC 14.0 H RBC Hgb Hct MCV 76 L MCH 25 L RDW 15.8 H Plt Count 113 L Lymph % (Auto) [place] % (Auto) [place] # [place] # (Auto) Seg Neutrophils % Seg Neuts % (Manual) 88.0 H Lymphocytes % (Manual) 2.0 L Seg Neutrophils # Seg Neutrophils # Man 12.3 H Lymphocytes # (Manual) 0.3 L D-Dimer ABG pH 7.290 L POC ABG pCO2 POC ABG pO2 ABG pO2 60.2 L ABG O2 Saturation 88.6 L ABG Base Excess -2.7 L ABG Oxyhemoglobin ABG HCO3 ABG Hemoglobin Oxyhemoglobin 87.1 L Sodium Potassium Chloride Carbon Dioxide BUN Creatinine Glucose POC Glucose 268 H Lactic Acid Calcium Ferritin AST Magnesium Lactate Dehydrogenase ALT C-Reactive Protein Total Protein Albumin Lhsoi-2-Ztjzzpxqm Zopky-9-Qraqjwxef PEP Interpretation Triglycerides TSH CHICA Screen Complement C4 Coronavirus (PCR) 01/13/20 01/14/20 01/14/20 23:53 00:31 03:13 WBC RBC Hgb Hct MCV MCH RDW Plt Count Lymph % (Auto) [place] % (Auto) [place] # [place] # (Auto) Seg Neutrophils % Seg Neuts % (Manual) Lymphocytes % (Manual) Seg Neutrophils # Seg Neutrophils # Man Lymphocytes # (Manual) D-Dimer ABG pH POC ABG pCO2 POC ABG pO2 ABG pO2 132.6 H ABG O2 Saturation ABG Base Excess -2.7 L ABG Oxyhemoglobin ABG HCO3 ABG Hemoglobin Oxyhemoglobin Sodium Potassium 5.3 H Chloride Carbon Dioxide BUN 55 H Creatinine 1.6 H Glucose 268 H POC Glucose 259 H Lactic Acid Calcium Ferritin AST 46 H Magnesium Lactate Dehydrogenase ALT C-Reactive Protein Total Protein 6.1 L Albumin 3.1 L Hfqbn-0-Lmfopqvvc Uwnbc-5-Ujtfpyuik PEP Interpretation Triglycerides TSH CHICA Screen Complement C4 Coronavirus (PCR) 01/14/20 01/14/20 01/14/20 05:23 06:06 09:47 WBC RBC Hgb Hct MCV MCH RDW Plt Count Lymph % (Auto) [place] % (Auto) [place] # [place] # (Auto) Seg Neutrophils % Seg Neuts % (Manual) Lymphocytes % (Manual) Seg Neutrophils # Seg Neutrophils # Man Lymphocytes # (Manual) D-Dimer > 83358 H ABG pH POC ABG pCO2 POC ABG pO2 ABG pO2 ABG O2 Saturation ABG Base Excess ABG Oxyhemoglobin ABG HCO3 ABG Hemoglobin Oxyhemoglobin Sodium Potassium 5.5 H Chloride 107.6 H Carbon Dioxide 21 L BUN 58 H Creatinine 1.7 H Glucose 231 H POC Glucose 231 H Lactic Acid Calcium Ferritin AST Magnesium Lactate Dehydrogenase ALT C-Reactive Protein Total Protein Albumin Tzdpy-7-Puarmewyt Adccp-7-Qhgzlivjg PEP Interpretation Triglycerides TSH CHICA Screen Complement C4 Coronavirus (PCR) 01/14/20 01/14/20 01/14/20 09:47 12:20 16:00 WBC RBC Hgb Hct MCV MCH RDW Plt Count Lymph % (Auto) [place] % (Auto) [place] # [place] # (Auto) Seg Neutrophils % Seg Neuts % (Manual) Lymphocytes % (Manual) Seg Neutrophils # Seg Neutrophils # Man Lymphocytes # (Manual) D-Dimer ABG pH POC ABG pCO2 POC ABG pO2 ABG pO2 69.3 L ABG O2 Saturation 94.4 L ABG Base Excess ABG Oxyhemoglobin ABG HCO3 ABG Hemoglobin Oxyhemoglobin 92.7 L Sodium Potassium Chloride 107.2 H Carbon Dioxide 21 L BUN 63 H Creatinine 1.5 H Glucose 217 H POC Glucose 238 H Lactic Acid Calcium Ferritin AST Magnesium Lactate Dehydrogenase ALT C-Reactive Protein Total Protein 6.0 L Albumin 2.7 L Ulsmz-1-Fgafuphpa Sikqq-6-Tcamqfhus PEP Interpretation Triglycerides TSH CHICA Screen Complement C4 Coronavirus (PCR) 01/14/20 01/14/20 01/14/20 18:24 19:01 23:50 WBC RBC Hgb Hct MCV MCH RDW Plt Count Lymph % (Auto) [place] % (Auto) [place] # [place] # (Auto) Seg Neutrophils % Seg Neuts % (Manual) Lymphocytes % (Manual) Seg Neutrophils # Seg Neutrophils # Man Lymphocytes # (Manual) D-Dimer ABG pH POC ABG pCO2 POC ABG pO2 ABG pO2 ABG O2 Saturation ABG Base Excess ABG Oxyhemoglobin ABG HCO3 ABG Hemoglobin Oxyhemoglobin Sodium 146 H Potassium 5.9 H Chloride 108.0 H Carbon Dioxide 20 L BUN 61 H Creatinine 1.4 H Glucose 254 H POC Glucose 228 H 321 H Lactic Acid Calcium Ferritin AST Magnesium Lactate Dehydrogenase ALT C-Reactive Protein Total Protein Albumin Asdwm-6-Joeipsaqu Djhow-1-Vwicjovjs PEP Interpretation Triglycerides TSH [place] Screen Complement C4 Coronavirus (PCR) 01/14/20 01/14/20 01/14/20 Unknown Unknown Unknown WBC RBC Hgb Hct MCV MCH RDW Plt Count Lymph % (Auto) [place] % (Auto) [place] # [place] # (Auto) Seg Neutrophils % Seg Neuts % (Manual) Lymphocytes % (Manual) Seg Neutrophils # Seg Neutrophils # Man Lymphocytes # (Manual) D-Dimer ABG pH POC ABG pCO2 POC ABG pO2 ABG pO2 ABG O2 Saturation ABG Base Excess ABG Oxyhemoglobin ABG HCO3 ABG Hemoglobin Oxyhemoglobin Sodium Potassium Chloride Carbon Dioxide BUN Creatinine Glucose POC Glucose Lactic Acid Calcium Ferritin AST Magnesium Lactate Dehydrogenase ALT C-Reactive Protein Total Protein Albumin 2.8 L Acrvc-3-Cqpvynhrv 0.6 H Vvydy-4-Mrjwjbgoy 1.1 H PEP Interpretation see below H Triglycerides TSH CHICA Screen Positive H Complement C4 76 H Coronavirus (PCR) 01/15/20 01/15/20 01/15/20 03:37 03:57 03:57 WBC 14.9 H RBC Hgb Hct MCV 75 L MCH 25 L RDW 15.4 H Plt Count Lymph % (Auto) 8.6 L [place] % (Auto) [place] # 1.0 H [place] # (Auto) Seg Neutrophils % 84.2 H Seg Neuts % (Manual) Lymphocytes % (Manual) Seg Neutrophils # 12.5 H Seg Neutrophils # Man Lymphocytes # (Manual) D-Dimer ABG pH 7.480 H POC ABG pCO2 POC ABG pO2 76.7 L ABG pO2 ABG O2 Saturation ABG Base Excess ABG Oxyhemoglobin ABG HCO3 ABG Hemoglobin Oxyhemoglobin Sodium 152 H Potassium Chloride 113.0 H Carbon Dioxide BUN 52 H Creatinine Glucose 288 H POC Glucose Lactic Acid Calcium Ferritin AST Magnesium Lactate Dehydrogenase ALT C-Reactive Protein Total Protein Albumin Sgynn-0-Jcdghuvtu Gqljg-6-Fmetmwvjk PEP Interpretation Triglycerides TSH CHICA Screen Complement C4 Coronavirus (PCR) 01/15/20 01/15/20 01/15/20 05:50 11:56 14:35 WBC RBC Hgb Hct MCV MCH RDW Plt Count Lymph % (Auto) [place] % (Auto) [place] # [place] # (Auto) Seg Neutrophils % Seg Neuts % (Manual) Lymphocytes % (Manual) Seg Neutrophils # Seg Neutrophils # Man Lymphocytes # (Manual) D-Dimer ABG pH POC ABG pCO2 POC ABG pO2 ABG pO2 ABG O2 Saturation ABG Base Excess ABG Oxyhemoglobin ABG HCO3 ABG Hemoglobin Oxyhemoglobin Sodium Potassium Chloride Carbon Dioxide BUN Creatinine Glucose POC Glucose 259 H 162 H Lactic Acid Calcium Ferritin 332.4 H AST Magnesium Lactate Dehydrogenase ALT C-Reactive Protein Total Protein Albumin Rkqis-3-Nqeqnqlxt Jpgaz-8-Lfmbjfgzg PEP Interpretation Triglycerides TSH CH[place] Screen Complement C4 Coronavirus (PCR) 01/15/20 01/15/20 01/15/20 14:35 14:35 14:35 WBC RBC Hgb Hct MCV MCH RDW Plt Count Lymph % (Auto) [place] % (Auto) [place] # [place] # (Auto) Seg Neutrophils % Seg Neuts % (Manual) Lymphocytes % (Manual) Seg Neutrophils # Seg Neutrophils # Man Lymphocytes # (Manual) D-Dimer ABG pH POC ABG pCO2 POC ABG pO2 ABG pO2 ABG O2 Saturation ABG Base Excess ABG Oxyhemoglobin ABG HCO3 ABG Hemoglobin Oxyhemoglobin Sodium Potassium Chloride Carbon Dioxide BUN Creatinine Glucose POC Glucose Lactic Acid Calcium Ferritin AST Magnesium 3.00 H Lactate Dehydrogenase 747 H ALT C-Reactive Protein 7.60 H Total Protein Albumin Iuazc-9-Ywojogmbo Byhwl-5-Oytlspetm PEP Interpretation Triglycerides TSH 0.221 L CHICA Screen Complement C4 Coronavirus (PCR) 01/15/20 01/15/20 01/15/20 16:18 17:31 23:26 WBC RBC Hgb Hct MCV MCH RDW Plt Count Lymph % (Auto) [place] % (Auto) [place] # [place] # (Auto) Seg Neutrophils % Seg Neuts % (Manual) Lymphocytes % (Manual) Seg Neutrophils # Seg Neutrophils # Man Lymphocytes # (Manual) D-Dimer ABG pH 7.510 H POC ABG pCO2 POC ABG pO2 76.6 L ABG pO2 ABG O2 Saturation ABG Base Excess ABG Oxyhemoglobin ABG HCO3 ABG Hemoglobin Oxyhemoglobin Sodium Potassium Chloride Carbon Dioxide BUN Creatinine Glucose POC Glucose 239 H 226 H Lactic Acid Calcium Ferritin AST Magnesium Lactate Dehydrogenase ALT C-Reactive Protein Total Protein Albumin Qooug-5-Kuxocsarg Jankj-5-Uvayuicvd PEP Interpretation Triglycerides TSH CHICA Screen Complement C4 Coronavirus (PCR) 01/16/20 01/16/20 01/16/20 03:33 04:00 04:00 WBC 13.6 H RBC Hgb Hct MCV 74 L MCH 25 L RDW 15.4 H Plt Count Lymph % (Auto) [place] % (Auto) [place] # [place] # (Auto) Seg Neutrophils % Seg Neuts % (Manual) 91.0 H Lymphocytes % (Manual) 5.0 L Seg Neutrophils # Seg Neutrophils # Man 12.4 H Lymphocytes # (Manual) 0.7 L D-Dimer ABG pH 7.477 H POC ABG pCO2 POC ABG pO2 ABG pO2 ABG O2 Saturation ABG Base Excess ABG Oxyhemoglobin ABG HCO3 ABG Hemoglobin Oxyhemoglobin Sodium 151 H Potassium Chloride 113.8 H Carbon Dioxide BUN 45 H Creatinine Glucose 213 H POC Glucose Lactic Acid Calcium Ferritin AST Magnesium Lactate Dehydrogenase ALT C-Reactive Protein Total Protein Albumin Secbq-7-Eimsrkbtz Nszkd-0-Chqvkdtvo PEP Interpretation Triglycerides TSH [place] Screen Complement C4 Coronavirus (PCR) 01/16/20 01/16/20 01/16/20 05:45 12:02 17:27 WBC RBC Hgb Hct MCV MCH RDW Plt Count Lymph % (Auto) [place] % (Auto) [place] # [place] # (Auto) Seg Neutrophils % Seg Neuts % (Manual) Lymphocytes % (Manual) Seg Neutrophils # Seg Neutrophils # Man Lymphocytes # (Manual) D-Dimer ABG pH POC ABG pCO2 POC ABG pO2 ABG pO2 ABG O2 Saturation ABG Base Excess ABG Oxyhemoglobin ABG HCO3 ABG Hemoglobin Oxyhemoglobin Sodium Potassium Chloride Carbon Dioxide BUN Creatinine Glucose POC Glucose 202 H 186 H 240 H Lactic Acid Calcium Ferritin AST Magnesium Lactate Dehydrogenase ALT C-Reactive Protein Total Protein Albumin Vdhbx-6-Jkzmsapoh Waozk-1-Tqtzfdjrx PEP Interpretation Triglycerides TSH [place] Screen Complement C4 Coronavirus (PCR) 01/17/20 01/17/20 01/17/20 00:07 04:50 05:46 WBC RBC Hgb Hct MCV MCH RDW Plt Count Lymph % (Auto) [place] % (Auto) [place] # [place] # (Auto) Seg Neutrophils % Seg Neuts % (Manual) Lymphocytes % (Manual) Seg Neutrophils # Seg Neutrophils # Man Lymphocytes # (Manual) D-Dimer ABG pH 7.494 H POC ABG pCO2 POC ABG pO2 ABG pO2 73.4 L ABG O2 Saturation ABG Base Excess ABG Oxyhemoglobin ABG HCO3 ABG Hemoglobin Oxyhemoglobin 94.4 L Sodium Potassium Chloride Carbon Dioxide BUN Creatinine Glucose POC Glucose 207 H 170 H Lactic Acid Calcium Ferritin AST Magnesium Lactate Dehydrogenase ALT C-Reactive Protein Total Protein Albumin Hhkjg-2-Wbmgzxnvv Iqvow-2-Dvehqceuo PEP Interpretation Triglycerides TSH [place] Screen Complement C4 Coronavirus (PCR) 01/17/20 01/17/20 01/17/20 06:00 06:00 11:32 WBC 11.5 H RBC Hgb Hct MCV 75 L MCH 25 L RDW 15.5 H Plt Count Lymph % (Auto) [place] % (Auto) [place] # [place] # (Auto) Seg Neutrophils % Seg Neuts % (Manual) 81.0 H Lymphocytes % (Manual) 10.0 L Seg Neutrophils # Seg Neutrophils # Man 9.3 H Lymphocytes # (Manual) D-Dimer ABG pH POC ABG pCO2 POC ABG pO2 ABG pO2 ABG O2 Saturation ABG Base Excess ABG Oxyhemoglobin ABG HCO3 ABG Hemoglobin Oxyhemoglobin Sodium 151 H Potassium Chloride 113.6 H Carbon Dioxide BUN 40 H Creatinine Glucose 149 H POC Glucose 229 H Lactic Acid Calcium Ferritin AST Magnesium Lactate Dehydrogenase ALT C-Reactive Protein Total Protein Albumin Iiceh-0-Ewogvifml Ztdni-4-Ynwuzwbnk PEP Interpretation Triglycerides TSH [place] Screen Complement C4 Coronavirus (PCR) 01/17/20 01/17/20 01/17/20 13:40 13:40 13:40 WBC RBC Hgb Hct MCV MCH RDW Plt Count Lymph % (Auto) [place] % (Auto) [place] # [place] # (Auto) Seg Neutrophils % Seg Neuts % (Manual) Lymphocytes % (Manual) Seg Neutrophils # Seg Neutrophils # Man Lymphocytes # (Manual) D-Dimer 1878.79 H ABG pH POC ABG pCO2 POC ABG pO2 ABG pO2 ABG O2 Saturation ABG Base Excess ABG Oxyhemoglobin ABG HCO3 ABG Hemoglobin Oxyhemoglobin Sodium Potassium Chloride Carbon Dioxide BUN Creatinine Glucose POC Glucose Lactic Acid Calcium Ferritin 322.8 H AST Magnesium Lactate Dehydrogenase 587 H ALT C-Reactive Protein 4.60 H Total Protein Albumin Zumiy-0-Uzqskpbav Jucaj-6-Znvfkkaqp PEP Interpretation Triglycerides TSH [place] Screen Complement C4 Coronavirus (PCR) 01/17/20 01/17/20 01/17/20 17:45 21:30 23:53 WBC RBC Hgb Hct MCV MCH RDW Plt Count Lymph % (Auto) [place] % (Auto) [place] # [place] # (Auto) Seg Neutrophils % Seg Neuts % (Manual) Lymphocytes % (Manual) Seg Neutrophils # Seg Neutrophils # Man Lymphocytes # (Manual) D-Dimer ABG pH POC ABG pCO2 POC ABG pO2 ABG pO2 179.6 H ABG O2 Saturation 99.2 H ABG Base Excess ABG Oxyhemoglobin ABG HCO3 ABG Hemoglobin 11.8 L Oxyhemoglobin Sodium Potassium Chloride Carbon Dioxide BUN Creatinine Glucose POC Glucose 364 H 272 H Lactic Acid Calcium Ferritin AST Magnesium Lactate Dehydrogenase ALT C-Reactive Protein Total Protein Albumin Xulex-4-Brqqkowjb Nxozj-9-Nisvirpin PEP Interpretation Triglycerides TSH [place] Screen Complement C4 Coronavirus (PCR) 01/18/20 01/18/20 01/18/20 03:40 04:00 05:00 WBC RBC Hgb Hct MCV MCH RDW Plt Count Lymph % (Auto) [place] % (Auto) [place] # [place] # (Auto) Seg Neutrophils % Seg Neuts % (Manual) Lymphocytes % (Manual) Seg Neutrophils # Seg Neutrophils # Man Lymphocytes # (Manual) D-Dimer ABG pH POC ABG pCO2 POC ABG pO2 ABG pO2 162.6 H ABG O2 Saturation ABG Base Excess ABG Oxyhemoglobin ABG HCO3 ABG Hemoglobin Oxyhemoglobin Sodium 150 H Potassium Chloride 113.4 H Carbon Dioxide BUN 44 H Creatinine Glucose 268 H POC Glucose Lactic Acid Calcium Ferritin AST Magnesium Lactate Dehydrogenase ALT C-Reactive Protein Total Protein Albumin Uqxmx-7-Gxhuiaada Jhuwi-8-Vaolzeeug PEP Interpretation Triglycerides 198 H TSH [place] Screen Complement C4 Coronavirus (PCR) 01/18/20 01/18/20 01/18/20 05:54 11:21 17:27 WBC RBC Hgb Hct MCV MCH RDW Plt Count Lymph % (Auto) [place] % (Auto) [place] # [place] # (Auto) Seg Neutrophils % Seg Neuts % (Manual) Lymphocytes % (Manual) Seg Neutrophils # Seg Neutrophils # Man Lymphocytes # (Manual) D-Dimer ABG pH POC ABG pCO2 POC ABG pO2 ABG pO2 ABG O2 Saturation ABG Base Excess ABG Oxyhemoglobin ABG HCO3 ABG Hemoglobin Oxyhemoglobin Sodium Potassium Chloride Carbon Dioxide BUN Creatinine Glucose POC Glucose 271 H 244 H 232 H Lactic Acid Calcium Ferritin AST Magnesium Lactate Dehydrogenase ALT C-Reactive Protein Total Protein Albumin Oqdbn-7-Ngnhszigw Dsfxq-6-Azhyygkfl PEP Interpretation Triglycerides TSH CH[place] Screen Complement C4 Coronavirus (PCR) 01/19/20 01/19/20 01/19/20 00:12 04:00 04:40 WBC RBC Hgb Hct MCV MCH RDW Plt Count Lymph % (Auto) [place] % (Auto) [place] # [place] # (Auto) Seg Neutrophils % Seg Neuts % (Manual) Lymphocytes % (Manual) Seg Neutrophils # Seg Neutrophils # Man Lymphocytes # (Manual) D-Dimer ABG pH POC ABG pCO2 POC ABG pO2 ABG pO2 117.2 H ABG O2 Saturation ABG Base Excess ABG Oxyhemoglobin ABG HCO3 ABG Hemoglobin 9.7 L Oxyhemoglobin Sodium 146 H Potassium Chloride 111.3 H Carbon Dioxide BUN 38 H Creatinine Glucose 168 H POC Glucose 143 H Lactic Acid Calcium Ferritin AST Magnesium Lactate Dehydrogenase ALT C-Reactive Protein Total Protein Albumin Wpvka-6-Gzrzykssk Yrmvc-5-Zenjjfzdv PEP Interpretation Triglycerides TSH CH[place] Screen Complement C4 Coronavirus (PCR) 01/19/20 01/19/20 01/19/20 05:41 12:02 18:13 WBC RBC Hgb Hct MCV MCH RDW Plt Count Lymph % (Auto) [place] % (Auto) [place] # [place] # (Auto) Seg Neutrophils % Seg Neuts % (Manual) Lymphocytes % (Manual) Seg Neutrophils # Seg Neutrophils # Man Lymphocytes # (Manual) D-Dimer ABG pH POC ABG pCO2 POC ABG pO2 ABG pO2 ABG O2 Saturation ABG Base Excess ABG Oxyhemoglobin ABG HCO3 ABG Hemoglobin Oxyhemoglobin Sodium Potassium Chloride Carbon Dioxide BUN Creatinine Glucose POC Glucose 171 H 208 H 272 H Lactic Acid Calcium Ferritin AST Magnesium Lactate Dehydrogenase ALT C-Reactive Protein Total Protein Albumin Vbyjh-4-Ouucrplpe Hzpqb-6-Xosrcnady PEP Interpretation Triglycerides TSH CH[place] Screen Complement C4 Coronavirus (PCR) 01/20/20 01/20/20 01/20/20 00:13 04:21 05:30 WBC RBC Hgb Hct MCV MCH RDW Plt Count Lymph % (Auto) [place] % (Auto) [place] # [place] # (Auto) Seg Neutrophils % Seg Neuts % (Manual) Lymphocytes % (Manual) Seg Neutrophils # Seg Neutrophils # Man Lymphocytes # (Manual) D-Dimer ABG pH POC ABG pCO2 POC ABG pO2 ABG pO2 ABG O2 Saturation ABG Base Excess ABG Oxyhemoglobin ABG HCO3 26.8 H ABG Hemoglobin 10.7 L Oxyhemoglobin 94.3 L Sodium Potassium Chloride Carbon Dioxide BUN Creatinine Glucose POC Glucose 223 H 129 H Lactic Acid Calcium Ferritin AST Magnesium Lactate Dehydrogenase ALT C-Reactive Protein Total Protein Albumin Lgqmx-9-Hhccwrjmd Tqlev-5-Mxcaomdcp PEP Interpretation Triglycerides TSH CHICA Screen Complement C4 Coronavirus (PCR) 01/20/20 01/20/20 01/20/20 11:14 11:14 11:14 WBC RBC Hgb Hct MCV MCH RDW Plt Count Lymph % (Auto) [place] % (Auto) [place] # [place] # (Auto) Seg Neutrophils % Seg Neuts % (Manual) Lymphocytes % (Manual) Seg Neutrophils # Seg Neutrophils # Man Lymphocytes # (Manual) D-Dimer 1221.96 H ABG pH POC ABG pCO2 POC ABG pO2 ABG pO2 ABG O2 Saturation ABG Base Excess ABG Oxyhemoglobin ABG HCO3 ABG Hemoglobin Oxyhemoglobin Sodium Potassium Chloride Carbon Dioxide BUN Creatinine Glucose POC Glucose Lactic Acid Calcium Ferritin 364.6 H AST Magnesium Lactate Dehydrogenase 403 H ALT C-Reactive Protein 5.10 H Total Protein Albumin Cdyoo-0-Ubteflydv Orxhy-1-Mrthjokua PEP Interpretation Triglycerides TSH CHICA Screen Complement C4 Coronavirus (PCR) 01/20/20 01/20/20 01/20/20 12:01 18:10 23:07 WBC RBC Hgb Hct MCV MCH RDW Plt Count Lymph % (Auto) [place] % (Auto) [place] # [place] # (Auto) Seg Neutrophils % Seg Neuts % (Manual) Lymphocytes % (Manual) Seg Neutrophils # Seg Neutrophils # Man Lymphocytes # (Manual) D-Dimer ABG pH POC ABG pCO2 POC ABG pO2 ABG pO2 ABG O2 Saturation ABG Base Excess ABG Oxyhemoglobin ABG HCO3 ABG Hemoglobin Oxyhemoglobin Sodium Potassium Chloride Carbon Dioxide BUN Creatinine Glucose POC Glucose 260 H 317 H 237 H Lactic Acid Calcium Ferritin AST Magnesium Lactate Dehydrogenase ALT C-Reactive Protein Total Protein Albumin Ntvwl-8-Xwximpyqb Whppu-1-Dasdlwnjj PEP Interpretation Triglycerides TSH CHICA Screen Complement C4 Coronavirus (PCR) 01/21/20 01/21/20 01/21/20 05:25 05:25 05:42 WBC 11.3 H RBC Hgb 9.1 L Hct 28.9 L MCV 77 L MCH 24 L RDW Plt Count Lymph % (Auto) [place] % (Auto) [place] # [place] # (Auto) Seg Neutrophils % Seg Neuts % (Manual) Lymphocytes % (Manual) Seg Neutrophils # Seg Neutrophils # Man Lymphocytes # (Manual) D-Dimer ABG pH POC ABG pCO2 POC ABG pO2 ABG pO2 ABG O2 Saturation ABG Base Excess ABG Oxyhemoglobin ABG HCO3 ABG Hemoglobin Oxyhemoglobin Sodium 147 H Potassium Chloride 111.0 H Carbon Dioxide 31 H D BUN 20 H Creatinine Glucose 103 H POC Glucose 110 H Lactic Acid Calcium 8.2 L Ferritin AST Magnesium Lactate Dehydrogenase ALT C-Reactive Protein Total Protein Albumin Ztyvj-6-Esdplojbp Prcqn-6-Rvbbwvmkr PEP Interpretation Triglycerides TSH CHICA Screen Complement C4 Coronavirus (PCR) 01/21/20 01/21/20 01/21/20 11:49 18:41 21:53 WBC RBC Hgb Hct MCV MCH RDW Plt Count Lymph % (Auto) [place] % (Auto) [place] # [place] # (Auto) Seg Neutrophils % Seg Neuts % (Manual) Lymphocytes % (Manual) Seg Neutrophils # Seg Neutrophils # Man Lymphocytes # (Manual) D-Dimer ABG pH POC ABG pCO2 POC ABG pO2 ABG pO2 ABG O2 Saturation ABG Base Excess ABG Oxyhemoglobin ABG HCO3 ABG Hemoglobin Oxyhemoglobin Sodium Potassium Chloride Carbon Dioxide BUN Creatinine Glucose POC Glucose 147 H 290 H 255 H Lactic Acid Calcium Ferritin AST Magnesium Lactate Dehydrogenase ALT C-Reactive Protein Total Protein Albumin Lysto-7-Jzxqtixqh Cmjci-7-Jtwgnafmg PEP Interpretation Triglycerides TSH CHICA Screen Complement C4 Coronavirus (PCR) 01/22/20 01/22/20 01/22/20 03:35 04:42 05:23 WBC RBC Hgb Hct MCV MCH RDW Plt Count Lymph % (Auto) [place] % (Auto) [place] # [place] # (Auto) Seg Neutrophils % Seg Neuts % (Manual) Lymphocytes % (Manual) Seg Neutrophils # Seg Neutrophils # Man Lymphocytes # (Manual) D-Dimer ABG pH 7.46 H POC ABG pCO2 POC ABG pO2 ABG pO2 ABG O2 Saturation ABG Base Excess ABG Oxyhemoglobin ABG HCO3 ABG Hemoglobin 10.4 L Oxyhemoglobin Sodium 148 H Potassium 3.5 L Chloride 108.1 H Carbon Dioxide BUN 19 H Creatinine Glucose 159 H POC Glucose 173 H Lactic Acid Calcium 8.1 L Ferritin AST Magnesium Lactate Dehydrogenase ALT C-Reactive Protein Total Protein Albumin Plitg-6-Ckygedrhg Jfakj-9-Dcfndajbd PEP Interpretation Triglycerides TSH CHICA Screen Complement C4 Coronavirus (PCR) 01/22/20 01/22/20 01/22/20 12:41 17:46 23:06 WBC RBC Hgb Hct MCV MCH RDW Plt Count Lymph % (Auto) [place] % (Auto) [place] # [place] # (Auto) Seg Neutrophils % Seg Neuts % (Manual) Lymphocytes % (Manual) Seg Neutrophils # Seg Neutrophils # Man Lymphocytes # (Manual) D-Dimer ABG pH POC ABG pCO2 POC ABG pO2 ABG pO2 ABG O2 Saturation ABG Base Excess ABG Oxyhemoglobin ABG HCO3 ABG Hemoglobin Oxyhemoglobin Sodium Potassium Chloride Carbon Dioxide BUN Creatinine Glucose POC Glucose 284 H 245 H 245 H Lactic Acid Calcium Ferritin AST Magnesium Lactate Dehydrogenase ALT C-Reactive Protein Total Protein Albumin Nsyfk-8-Pfctqttax Qonmk-0-Wnvrdsimo PEP Interpretation Triglycerides TSH CHICA Screen Complement C4 Coronavirus (PCR) 01/23/20 01/23/20 01/23/20 05:50 06:10 06:10 WBC RBC Hgb Hct MCV MCH RDW Plt Count Lymph % (Auto) [place] % (Auto) [place] # [place] # (Auto) Seg Neutrophils % Seg Neuts % (Manual) Lymphocytes % (Manual) Seg Neutrophils # Seg Neutrophils # Man Lymphocytes # (Manual) D-Dimer 451.53 H ABG pH POC ABG pCO2 POC ABG pO2 ABG pO2 ABG O2 Saturation ABG Base Excess ABG Oxyhemoglobin ABG HCO3 ABG Hemoglobin Oxyhemoglobin Sodium Potassium Chloride 110.3 H Carbon Dioxide BUN 19 H Creatinine 0.5 L Glucose 178 H POC Glucose 184 H Lactic Acid Calcium 7.6 L Ferritin AST Magnesium Lactate Dehydrogenase ALT C-Reactive Protein 3.30 H Total Protein Albumin Hgvwq-6-Xcweijcfn Hgezx-6-Wmimspnzn PEP Interpretation Triglycerides TSH CHICA Screen Complement C4 Coronavirus (PCR) 01/23/20 01/23/20 01/23/20 12:29 17:57 22:15 WBC 12.8 H RBC Hgb 9.7 L Hct MCV 77 L MCH 25 L RDW Plt Count Lymph % (Auto) [place] % (Auto) 9.1 H [place] # [place] # (Auto) 1.2 H Seg Neutrophils % Seg Neuts % (Manual) Lymphocytes % (Manual) Seg Neutrophils # 8.6 H Seg Neutrophils # Man Lymphocytes # (Manual) D-Dimer ABG pH POC ABG pCO2 POC ABG pO2 ABG pO2 ABG O2 Saturation ABG Base Excess ABG Oxyhemoglobin ABG HCO3 ABG Hemoglobin Oxyhemoglobin Sodium Potassium Chloride Carbon Dioxide BUN Creatinine Glucose POC Glucose 258 H 248 H Lactic Acid Calcium Ferritin AST Magnesium Lactate Dehydrogenase ALT C-Reactive Protein Total Protein Albumin Htkzo-3-Qdgtcwbbb Hwwhm-9-Uithyccqn PEP Interpretation Triglycerides TSH CHICA Screen Complement C4 Coronavirus (PCR) 01/23/20 01/24/20 01/24/20 23:28 06:00 06:00 WBC 12.4 H RBC Hgb 9.3 L Hct 28.6 L MCV 77 L MCH 25 L RDW Plt Count Lymph % (Auto) [place] % (Auto) 8.7 H [place] # [place] # (Auto) 1.1 H Seg Neutrophils % 71.2 H Seg Neuts % (Manual) Lymphocytes % (Manual) Seg Neutrophils # 8.8 H Seg Neutrophils # Man Lymphocytes # (Manual) D-Dimer ABG pH POC ABG pCO2 POC ABG pO2 ABG pO2 ABG O2 Saturation ABG Base Excess ABG Oxyhemoglobin ABG HCO3 ABG Hemoglobin Oxyhemoglobin Sodium Potassium 3.4 L Chloride 107.3 H Carbon Dioxide BUN Creatinine Glucose POC Glucose 200 H Lactic Acid Calcium Ferritin AST Magnesium Lactate Dehydrogenase ALT C-Reactive Protein Total Protein Albumin Nxluv-4-Viuhqcjpt Whwrn-5-Tqhisromt PEP Interpretation Triglycerides TSH CHICA Screen Complement C4 Coronavirus (PCR) 01/24/20 01/24/20 01/24/20 10:02 12:31 17:59 WBC RBC Hgb Hct MCV MCH RDW Plt Count Lymph % (Auto) [place] % (Auto) [place] # [place] # (Auto) Seg Neutrophils % Seg Neuts % (Manual) Lymphocytes % (Manual) Seg Neutrophils # Seg Neutrophils # Man Lymphocytes # (Manual) D-Dimer ABG pH POC ABG pCO2 POC ABG pO2 ABG pO2 ABG O2 Saturation ABG Base Excess ABG Oxyhemoglobin ABG HCO3 ABG Hemoglobin Oxyhemoglobin Sodium Potassium Chloride Carbon Dioxide BUN Creatinine Glucose POC Glucose 161 H 252 H 182 H Lactic Acid Calcium Ferritin AST Magnesium Lactate Dehydrogenase ALT C-Reactive Protein Total Protein Albumin Fgwwi-7-Ycjsnrggh Kldnz-7-Dxmgzpqwm PEP Interpretation Triglycerides TSH CHICA Screen Complement C4 Coronavirus (PCR) 01/25/20 01/25/20 01/25/20 00:21 05:43 12:01 WBC RBC Hgb Hct MCV MCH RDW Plt Count Lymph % (Auto) [place] % (Auto) [place] # [place] # (Auto) Seg Neutrophils % Seg Neuts % (Manual) Lymphocytes % (Manual) Seg Neutrophils # Seg Neutrophils # Man Lymphocytes # (Manual) D-Dimer ABG pH POC ABG pCO2 POC ABG pO2 ABG pO2 ABG O2 Saturation ABG Base Excess ABG Oxyhemoglobin ABG HCO3 ABG Hemoglobin Oxyhemoglobin Sodium Potassium Chloride Carbon Dioxide BUN Creatinine Glucose POC Glucose 125 H 132 H 215 H Lactic Acid Calcium Ferritin AST Magnesium Lactate Dehydrogenase ALT C-Reactive Protein Total Protein Albumin Mmpyf-2-Lseqptkft Mihol-3-Rnwfpnceu PEP Interpretation Triglycerides TSH CHICA Screen Complement C4 Coronavirus (PCR) 01/25/20 01/26/20 01/26/20 18:23 00:20 04:43 WBC RBC Hgb Hct MCV MCH RDW Plt Count Lymph % (Auto) [place] % (Auto) [place] # [place] # (Auto) Seg Neutrophils % Seg Neuts % (Manual) Lymphocytes % (Manual) Seg Neutrophils # Seg Neutrophils # Man Lymphocytes # (Manual) D-Dimer 864.61 H ABG pH POC ABG pCO2 POC ABG pO2 ABG pO2 ABG O2 Saturation ABG Base Excess ABG Oxyhemoglobin ABG HCO3 ABG Hemoglobin Oxyhemoglobin Sodium Potassium Chloride Carbon Dioxide BUN Creatinine Glucose POC Glucose 213 H 173 H Lactic Acid Calcium Ferritin AST Magnesium Lactate Dehydrogenase ALT C-Reactive Protein Total Protein Albumin Lfxzd-2-Kskxfwqct Eomey-5-Xyuiwmtom PEP Interpretation Triglycerides TSH CHICA Screen Complement C4 Coronavirus (PCR) 01/26/20 01/26/20 01/26/20 04:43 04:43 05:45 WBC RBC Hgb Hct MCV MCH RDW Plt Count Lymph % (Auto) [place] % (Auto) [place] # [place] # (Auto) Seg Neutrophils % Seg Neuts % (Manual) Lymphocytes % (Manual) Seg Neutrophils # Seg Neutrophils # Man Lymphocytes # (Manual) D-Dimer ABG pH POC ABG pCO2 POC ABG pO2 ABG pO2 ABG O2 Saturation ABG Base Excess ABG Oxyhemoglobin ABG HCO3 ABG Hemoglobin Oxyhemoglobin Sodium Potassium Chloride Carbon Dioxide BUN Creatinine Glucose POC Glucose 131 H Lactic Acid Calcium Ferritin 267.6 H AST Magnesium Lactate Dehydrogenase 319 H ALT C-Reactive Protein 8.90 H Total Protein Albumin Ykffh-5-Waaofhcha Zlcsz-2-Emooliffy PEP Interpretation Triglycerides TSH CHICA Screen Complement C4 Coronavirus (PCR) 01/26/20 01/26/20 01/26/20 10:37 10:37 12:05 WBC RBC 3.51 L Hgb 8.8 L Hct 27.1 L MCV 77 L MCH 25 L RDW Plt Count Lymph % (Auto) [place] % (Auto) 7.8 H [place] # [place] # (Auto) Seg Neutrophils % 74.0 H Seg Neuts % (Manual) Lymphocytes % (Manual) Seg Neutrophils # 8.0 H Seg Neutrophils # Man Lymphocytes # (Manual) D-Dimer ABG pH POC ABG pCO2 POC ABG pO2 ABG pO2 ABG O2 Saturation ABG Base Excess ABG Oxyhemoglobin ABG HCO3 ABG Hemoglobin Oxyhemoglobin Sodium Potassium 3.5 L Chloride Carbon Dioxide BUN Creatinine Glucose 124 H POC Glucose 137 H Lactic Acid Calcium Ferritin AST 49 H Magnesium Lactate Dehydrogenase ALT 81 H C-Reactive Protein Total Protein 5.6 L Albumin 2.6 L Uczgb-3-Vnpvwqtnm Dcxcx-8-Uvnxspstf PEP Interpretation Triglycerides TSH CHICA Screen Complement C4 Coronavirus (PCR) 01/26/20 01/26/20 01/27/20 16:50 23:22 05:37 WBC RBC Hgb Hct MCV MCH RDW Plt Count Lymph % (Auto) [place] % (Auto) [place] # [place] # (Auto) Seg Neutrophils % Seg Neuts % (Manual) Lymphocytes % (Manual) Seg Neutrophils # Seg Neutrophils # Man Lymphocytes # (Manual) D-Dimer ABG pH POC ABG pCO2 POC ABG pO2 ABG pO2 ABG O2 Saturation ABG Base Excess ABG Oxyhemoglobin ABG HCO3 ABG Hemoglobin Oxyhemoglobin Sodium Potassium Chloride Carbon Dioxide BUN Creatinine Glucose POC Glucose 145 H 200 H 168 H Lactic Acid Calcium Ferritin AST Magnesium Lactate Dehydrogenase ALT C-Reactive Protein Total Protein Albumin Efseg-1-Blwlrsidm Rkted-1-Vzslfuhyr PEP Interpretation Triglycerides TSH CHICA Screen Complement C4 Coronavirus (PCR) 01/27/20 01/27/20 01/27/20 11:36 17:06 22:28 WBC RBC Hgb Hct MCV MCH RDW Plt Count Lymph % (Auto) [place] % (Auto) [place] # [place] # (Auto) Seg Neutrophils % Seg Neuts % (Manual) Lymphocytes % (Manual) Seg Neutrophils # Seg Neutrophils # Man Lymphocytes # (Manual) D-Dimer ABG pH POC ABG pCO2 POC ABG pO2 ABG pO2 ABG O2 Saturation ABG Base Excess ABG Oxyhemoglobin ABG HCO3 ABG Hemoglobin Oxyhemoglobin Sodium Potassium Chloride Carbon Dioxide BUN Creatinine Glucose POC Glucose 210 H 174 H 169 H Lactic Acid Calcium Ferritin AST Magnesium Lactate Dehydrogenase ALT C-Reactive Protein Total Protein Albumin Lbjro-1-Xljfqoqml Ozehe-4-Nudlxauow PEP Interpretation Triglycerides TSH CHICA Screen Complement C4 Coronavirus (PCR) 01/28/20 01/28/20 01/28/20 05:46 11:44 16:59 WBC RBC Hgb Hct MCV MCH RDW Plt Count Lymph % (Auto) [place] % (Auto) [place] # [place] # (Auto) Seg Neutrophils % Seg Neuts % (Manual) Lymphocytes % (Manual) Seg Neutrophils # Seg Neutrophils # Man Lymphocytes # (Manual) D-Dimer ABG pH POC ABG pCO2 POC ABG pO2 ABG pO2 ABG O2 Saturation ABG Base Excess ABG Oxyhemoglobin ABG HCO3 ABG Hemoglobin Oxyhemoglobin Sodium Potassium Chloride Carbon Dioxide BUN Creatinine Glucose POC Glucose 149 H 192 H 163 H Lactic Acid Calcium Ferritin AST Magnesium Lactate Dehydrogenase ALT C-Reactive Protein Total Protein Albumin Xyeyp-0-Qoqlnkrtw Gbnyp-6-Emqzixhcb PEP Interpretation Triglycerides TSH CH[place] Screen Complement C4 Coronavirus (PCR) CT scan - chest: report reviewed, image reviewed Additional Studies: CTA CHEST WITH CONTRAST 01/23/20 INDICATION : Acute hypoxemic respiratory Failure. TECHNIQUE: Axial imaging performed through the chest, with contrast bolus timing set to maximize opacification of the pulmonary arteries. Sagittal and coronal reformatted images. 3-plane MIP reformatted images were obtained. All CT scans at this location are performed using CT dose reduction for ALARA by means of automated exposure control. 100 mL of intravenous contrast administered. COMPARISON: AP chest dated 01/20/2020 FINDINGS: Bolus: Contrast bolus timing is limited with poor opacification of the distal small pulmonary arteries. PTE: No filling defect is present to suggest PTE. Mediastinum: Heart and great vessels appear normal. No pathologic mediastinal adenopathy. Endotracheal tube and nasogastric tube are appearing good position. Lungs: There are subtle scattered bilateral lung opacities in the lower lung zones. Mild segmental atelectasis is also noted in the lower lobes and medial right upper lobe. No consolidation, pleural effusion or pneumothorax is appreciated. Bones: Degenerative changes in the spine with nothing acute. Upper abdomen: Limited imaging of the upper abdomen shows nothing acute. IMPRESSION: Slightly limited contrast bolus. No large central pulmonary embolus is detected. Scattered bilateral lung opacities concerning for viral infection. Mild bilateral atelectatic changes. Allied health notes reviewed: RT
[2020-01-28] MEDS: ENOXAPARIN 40 MG/0.4 ML INJ SUB-Q SCH (21:38)
[2020-01-29] MEDS: hydrALAZINE 25 MG TAB PO SCH ×3 (06:00→21:41)
[2020-01-29] MEDS: INSULIN LISPRO 100 UNIT/ML VIAL 3 mL SUB-Q SCH ×3 (06:02→18:26)
--- NOTE | 2020-01-29 06:57 | Progress Note ---
Assessment and Plan Assessment and plan Acute hypoxic respiratory failure. secondary to COVID-19 infection. Patient remains on mechanical ventilation. Pulmonary following. Patient was on 30 L of nasal cannula oxygen yesterday Down to 3 L today of nasal cannula Improved from yesterday COVID-19 pneumonia. Patient was initially diagnosed 8 days prior to admission. Inflammatory markers reviewed. ID following. Continue dexamethasone 6 mg IV for completion of 10 days (day 9 of 10). Treated with remdesivir for 4 days and stopped on 01/17/2020 per ID recommendation because of bradycardia. Continue to trend inflammatory markers. Continue full dose anticoagulation given the high d-dimer. Sepsis. Etiology secondary to above. Off antibiotics Morbid obesity. Counseling once patient is extubated Severe bradycardia : Resolved. cardiology consult note reviewed Likely secondary to Decadron/ ? remdesivir No further recommendations Elevated LFTs/transaminitis.-Improved Etiology likely secondary to sepsis/COVID-19 Acute kidney injury. Improved Etiology secondary to sepsis/ATN. Discussed with Dr. Sheikh. Nephrology signed off Hypernatremia Secondary to dehydration Resolved Serum sodium down to 146 Hyperkalemia. Resolved Etiology likely secondary to above. Hypertension Intermittently uncontrolled, most likely secondary to agitation/anxiety Will down regulate blood pressure medication Discharge planning issues Patient is on 3 L nasal cannula oxygen Will discharge when she is down to about 2 L are off oxygen Physical therapy and Occupational Therapy initiated patient has been in the hospital for about 17 days Discussed with case management about home oxygen Subjective Date of service: 01/28/20 Principal diagnosis: Ac. hypoxemic resp failure; COVID infection; PNA; ARACELI; Thrombocytopenia Interval history: History of present illness: 39 YO Female with MO, Obesity Hypoventilation Syndrome, DM, Asthma presents to ED for evaluation. Patient states that she has experienced shortness of breath over the past 3 days with worsening symptoms over the past 1 day. Patient also acknowledges nonproductive cough, malaise, weakness, fatigue, decreased exercise tolerance, subjective fever and body aches. Patient states that she tested positive for coronavirus 8 days ago and has experienced worsening symptoms over the past 3 days. EMS was notified and upon arrival the patient was found to be in distress. Patient placed on submental oxygen and transported to [facility] for further care and evaluation. Patient seen and evaluated in the emergency department. Lab and imaging studies reviewed. Patient found to have a pulse oximetry of 80% on room air which is consistent with acute hypoxemic respiratory failure as well as a fever with a temperature of 101.3 F. Patient underwent chest x-ray which revealed bilateral pneumonia which was complicated by sepsis. Patient admitted to medical floor and initiated on pneumonia protocol as well as COVID-19 protocol as well as sepsis protocol. Patient denies chills, chest pain, palpitations, productive cough, skin rash, recent ill contacts. Patient acknowledges positive coronavirus infection. No prior admission for review. All medication listed at time of admission has been reconciled. Coronavirus PCR has been ordered and is pending at time of admission. 01/16/2020; patient is still on mechanical ventilation FiO2 40, PEEP 14, patient is on fentanyl, Versed, propofol. Patient proned. We will continue to monitor. Patient is off IV antibiotics. Treated for 5 days with IV ceftriaxone. ID, nephrology and pulmonary consult appreciated 01/17/2020; patient is still on mechanical ventilation FiO2 40, PEEP 14, patient is on fentanyl, Versed, propofol. Patient proned. We will continue to monitor. Patient is off IV antibiotics. Treated for 5 days with IV ceftriaxone. ID, nephrology and pulmonary consult appreciated. Patient has elevated sodium level and advised to increase free water intake through the NG tube feeding. 01/18/2020; patient is still on mechanical ventilation with FiO2 of 40 and PEEP of 14 patient is on fentanyl and Versed for sedation. Patient is on dexamethasone day 7 and probably severe was stopped yesterday after fourth dose per ID recommendation, patient is bradycardic. Cardiology was consulted and recommend to follow her closely. If heart rates below 40 we want to give her atropine. I discussed the management plan with her father Mr. Baxter in detail at [phone]. Mr. Baxter said his daughter was suffering from asthma and bipolar disorder. 01/19/20; patient is on mechanical ventilation FiO2 of 35 and PEEP of 8, patient is on fentanyl and Versed for sedation. Patient is on dexamethasone day 8. From the severe discontinued after she took for 4 days per ID recommendation due to bradycardia. Cardiology and nephrology consult appreciated. Discussed with her father in detail about the management plan on 01/18/2020. Continue with the same management. Vent management as per guide visitor. 01/19 patient remains on vent, on FiO2 of 30% and PEEP of 8. She is on Diprivan and fentanyl. Per discussion with RN ,patient is anxious and intermittently agitated. Patient is awake and alert. Unable to perform review of systems secondary to patient being intubated. All interdisciplinary notes reviewed Lab results reviewed 01/20 no acute events overnight, groggy secondary to sedation, opens eyes to verbal stimulus, yesterday's events noted, BP now well controlled with heart rate also in the normal range. Will adjust blood pressure medication 01/22/20 no acute events overnight, opens eyes to verbal stimulus, yesterday's events noted, BP now well controlled with heart rate also in the normal range. Will adjust blood pressure medication 01/23/2020--patient being weaned so that he can be extubated 01/24/2020 patient extubated today 01/25/2020 patient on BiPAP 01/26/2020 patient still on oxygen 01/27/2020 patient still on high flow oxygen about 30 L 01/28/2020 patient is down to 3 L nasal cannula oxygen and feeling better Objective - Constitutional Vitals: Vital Signs - 12hr 01/28/20 01/28/20 01/28/20 20:03 21:30 22:45 Temperature 97.8 F Pulse Rate 78 127 H Respiratory 16 Rate Blood Pressure 191/98 198/99 Blood Pressure [Right] O2 Sat by Pulse 96 98 Oximetry 01/29/20 01/29/20 01/29/20 00:07 02:09 05:02 Temperature 98.5 F Pulse Rate 77 123 H Respiratory 16 Rate Blood Pressure 150/78 121/71 Blood Pressure 132/77 [Right] O2 Sat by Pulse Oximetry General appearance: Present: no acute distress, well-nourished - EENT Eyes: PERRL, EOM intact ENT: hearing intact, clear oral mucosa Ears: bilateral: normal - Neck Neck: supple, normal ROM - Respiratory Respiratory effort: normal Respiratory: bilateral: CTA, rhonchi - Breasts Breasts: normal - Cardiovascular Heart rate: 78 Rhythm: regular Heart Sounds: Present: S1 & S2. Absent: gallop, rub Extremities: pulses intact, No edema, normal color, Full ROM - Gastrointestinal General gastrointestinal: Present: soft, non-tender, non-distended, normal bowel sounds - Genitourinary Female genitourinary: normal - Integumentary Integumentary: clear, warm, dry - Musculoskeletal Musculoskeletal: 1, strength equal bilaterally - Neurologic Neurologic: moves all extremities - Psychiatric Psychiatric: memory intact, appropriate mood/affect, intact judgment & insight - Labs CBC & Chem 7: 01/26/20 10:37 01/26/20 10:37 Labs: Abnormal lab results 01/28/20 01/28/20 01/29/20 Range/Units 11:44 16:59 03:22 POC Glucose 192 H 163 H 116 H (70-105) 01/29/20 Range/Units 05:13 POC Glucose 140 H (70-105)
[2020-01-29 08:20] LABS: Basophils # (Auto) 0.1 K/mm3 (0.0-0.1); Basophils % (Auto) 0.6 % (0.0-1.8); Eosinophils # (Auto) 0.3 K/mm3 (0.0-0.4); Eosinophils % (Auto) 2.7 % (0.0-4.3); Hematocrit 26.9 % (30.3-42.9); Hemoglobin 8.9 gm/dl (10.1-14.3); Lymphocytes % (Auto) 19.2 % (13.4-35.0); Mean Corpuscular HGB Conc 33 % (30-34); Mean Corpuscular Volume 76 fl (79-97); Monocytes # (Auto) 0.7 K/mm3 (0.0-0.8); Monocytes % (Auto) 7.1 % (0.0-7.3); Platelet Count 361 K/mm3 (140-440); Red Blood Count 3.55 M/mm3 (3.65-5.03); Red Cell Distribution Width 15.1 % (13.2-15.2)
[2020-01-29 08:33] LABS: Alanine Aminotransferase 65 units/L (7-56); BUN/Creatinine Ratio 19; Blood Urea Nitrogen 13 mg/dL (7-17); Calcium 9.3 mg/dL (8.4-10.2); Hemolysis Index 0
[2020-01-29] MEDS: QUEtiapine 200 MG TAB PO SCH ×2 (11:14→21:43)
[2020-01-29] MEDS: FAMOTIDINE 20 MG TAB PO SCH ×2 (11:14→21:43)
[2020-01-29] MEDS: clonazePAM 0.5 MG TAB PO SCH ×2 (11:15→21:43)
[2020-01-29] MEDS: cloNIDine 0.1 MG TAB PO SCH ×2 (11:15→21:42)
[2020-01-29] MEDS: INSULIN GLARGINE 100 UNITS/ML SUB-Q SCH (11:16)
--- NOTE | 2020-01-29 14:21 | Progress Note ---
Assessment and Plan Cultures: Blood culture 01/11/2020 no growth today Urine culture 01/11/2020 10-100,000 normal skin cristina Tracheal aspirate a 01/13/2020 no growth 01/22/2020 Blood culture: no growth A/P: 39-year-old female past medical history morbid obesity, diabetes admitted with severe COVID-19 pneumonia. #Sepsis: secondary to COVID-19 pneumonia. New fever being worked up. No clear source found yet. #Acute hypoxemic respiratory failure: Likely secondary to COVID-19 infection. Extubated 01/24/2020. #COVID-19 pneumonia: Very high d-dimer on admission. Completed ceftriaxone. Completed Remdesivir. Completed steroids 01/25/2020. #Morbid obesity: BMI=52. Associated with worse COVID-19 outcomes #Transaminitis: Likely related to COVID-19 #ARACELI: Resolved #Bradycardia: Resolved. Recs: -anticoagulation per protocol based on d-dimer -continue supportive care and oxygen weaning. May need to be discharged with oxygen Lynn Song MD, FACP [facility] ([facility] C: [phone] O: [phone] F: [phone] Subjective Date of service: 01/29/20 Principal diagnosis: Ac. hypoxemic resp failure; COVID infection; PNA; ARACELI; Thrombocytopenia Interval history: No fever. Remains on oxygen by [place]. Objective - Exam Narrative Exam: Physical Exam (reviewed in chart due to PPE conservation and minimize risk of transmission) Constitutional: limited due to PPE conservation strategy Head, Ears, Nose: limited due to PPE conservation strategy Eyes: limited due to PPE conservation strategy Neck: limited due to PPE conservation strategy Oral: limited due to PPE conservation strategy Cardiovascular: limited due to PPE conservation strategy Respiratory: limited due to PPE conservation strategy GI: limited due to PPE conservation strategy Musculoskeletal: limited due to PPE conservation strategy Skin: limited due to PPE conservation strategy Hem/Lymphatic: limited due to PPE conservation strategy Psych: limited due to PPE conservation strategy Neurological: limited due to PPE conservation strategy - Constitutional Vitals: Vital Signs Temp Pulse Resp BP Pulse Ox 98.2 F 123 H 26 H 156/83 94 01/29/20 11:45 01/29/20 11:45 01/29/20 11:45 01/29/20 11:45 01/29/20 11:45 Temperature -Last 24 Hours Temperature 98.2 F Temperature 98.5 F Temperature 97.8 F Temperature 98.9 F - Labs CBC & Chem 7: 01/29/20 07:32 01/29/20 07:32 Labs: Abnormal lab results 01/28/20 01/29/20 01/29/20 Range/Units 16:59 03:22 05:13 RBC (3.65-5.03) M/mm3 Hgb (10.1-14.3) gm/dl Hct (30.3-42.9) % MCV (79-97) fl MCH (28-32) pg Seg Neutrophils % (40.0-70.0) % D-Dimer (0-234) ng/mlDDU Carbon Dioxide (22-30) mmol/L Glucose (65-100) mg/dL POC Glucose 163 H 116 H 140 H (70-105) ALT (7-56) units/L C-Reactive Protein (0.00-1.30) mg/dL Total Protein (6.3-8.2) g/dL Albumin (3.9-5) g/dL 01/29/20 01/29/20 01/29/20 Range/Units 07:32 07:32 07:32 RBC 3.55 L (3.65-5.03) M/mm3 Hgb 8.9 L (10.1-14.3) gm/dl Hct 26.9 L (30.3-42.9) % MCV 76 L (79-97) fl MCH 25 L (28-32) pg Seg Neutrophils % 70.4 H (40.0-70.0) % D-Dimer 1505.14 H (0-234) ng/mlDDU Carbon Dioxide (22-30) mmol/L Glucose (65-100) mg/dL POC Glucose (70-105) ALT (7-56) units/L C-Reactive Protein 6.20 H (0.00-1.30) mg/dL Total Protein (6.3-8.2) g/dL Albumin (3.9-5) g/dL 01/29/20 01/29/20 Range/Units 07:32 12:03 RBC (3.65-5.03) M/mm3 Hgb (10.1-14.3) gm/dl Hct (30.3-42.9) % MCV (79-97) fl MCH (28-32) pg Seg Neutrophils % (40.0-70.0) % D-Dimer (0-234) ng/mlDDU Carbon Dioxide 31 H (22-30) mmol/L Glucose 160 H (65-100) mg/dL POC Glucose 216 H (70-105) ALT 65 H (7-56) units/L C-Reactive Protein (0.00-1.30) mg/dL Total Protein 6.0 L (6.3-8.2) g/dL Albumin 3.0 L (3.9-5) g/dL
--- NOTE | 2020-01-29 16:45 | Progress Note ---
<KATHRYNAmariRICKY Mandujano - Last Filed: 01/29/20 17:13> Assessment and Plan Assessment and plan: History of present illness: - Patient Problems (1) Sepsis Current Visit: Yes Status: Acute Qualifiers: Acute respiratory failure type: with hypoxia Plan to address problem: Present on admission Secondary to COVID 19 pneumonia Completed antibiotics Trend CBC (2) Pneumonia due to COVID-19 virus Current Visit: Yes Status: Acute Plan to address problem: Patient was initially diagnosed 8 days prior to admission. Trend inflammatory markers ID following Completed dexamethasone 6 mg for 10 days S/p remdesivir for 4 days and stopped on 01/17/2020 per ID recommendation because of bradycardia Anticoagulation per protocol Contact/isolation protocols Pulmonary hygiene Supplemental oxygenation as needed OOB 3 times daily Prone to sleep as needed (3) Acute hypoxemic respiratory failure Current Visit: Yes Status: Acute Plan to address problem: Secondary to COVID-19 infection S/P mechanical ventilation, extubated 01/23 Patient currently on 3 L nasal cannula Supplemental oxygenation as needed Pulmonary hygiene Pulmonology consult, recommendations appreciated (4) Obesity hypoventilation syndrome Current Visit: Yes Status: Acute Plan to address problem: Follow-up outpatient for pulmonary function test Secondary to morbid obesity, weight loss counseling (5) Hypertension Current Visit: Yes Status: Chronic Plan to address problem: Antihypertensive regimen: Hydralazine and clonidine PRN labetalol, Vasotec, hydralazine Blood pressure monitoring per protocol (6) Diabetes Current Visit: Yes Status: Acute Plan to address problem: SSI Accu-Cheks AC at bedtime Lantus 15 units daily (7) DVT prophylaxis Current Visit: Yes Status: Acute Plan to address problem: SCDs to bilateral extremities while in bed Lovenox subcu, anticoagulation per COVID-19 protocol (8) Discharge planning issues Current Visit: Yes Status: Acute Plan to address problem: Case management consulted ST/OT/PT recommendations pending 01/24 speech therapy evaluation completed and recommended nectar thickened liquids History Interval history: 39 YO Female with MO, Obesity Hypoventilation Syndrome, DM, Asthma presents to ED for evaluation on 01/10 with shortness of breath over the past 3 days with worsening symptoms over the past 1 day with a nonproductive cough, malaise, weakness, fatigue, decreased exercise tolerance, subjective fever and body ac hes. Patient stated that she tested positive for coronavirus on 01/02 and has experienced worsening symptoms over the past 3 days. EMS was notified and upon arrival the patient was found to be in distress. Patient placed on supplemental oxygen. Patient found to have a pulse oximetry of 80% on room air which is consistent with acute hypoxemic respiratory failure as well as a fever with a temperature of 101.3 F. Patient underwent chest x-ray which revealed bilateral pneumonia which was complicated by sepsis. Patient admitted to medical floor and initiated on pneumonia protocol as well as COVID-19 protocol as well as sepsis protocol. This morning she states that she feels better however remains on supplemental oxygenation. Pending ST/PT/OT evaluations and recommendations. Today her d-dimer elevated to 1505 from 864, patient is already on anticoagulation per cover protocol. [facility] attempted to contact patient's family members for an update however the call went to voicemail and her voicemail mailbox is not set up. 01/16/2020; patient is still on mechanical ventilation FiO2 40, PEEP 14, patient is on fentanyl, Versed, propofol. Patient proned. We will continue to monitor. Patient is off IV antibiotics. Treated for 5 days with IV ceftriaxone. ID, nephrology and pulmonary consult appreciated 01/17/2020; patient is still on mechanical ventilation FiO2 40, PEEP 14, patient is on fentanyl, Versed, propofol. Patient proned. We will continue to monitor. Patient is off IV antibiotics. Treated for 5 days with IV ceftriaxone. ID, nephrology and pulmonary consult appreciated. Patient has elevated sodium level and advised to increase free water intake through the NG tube feeding. 01/18/2020; patient is still on mechanical ventilation with FiO2 of 40 and PEEP of 14 patient is on fentanyl and Versed for sedation. Patient is on dexamethasone day 7 and probably severe was stopped yesterday after fourth dose per ID recommendation, patient is bradycardic. Cardiology was consulted and recommend to follow her closely. If heart rates below 40 we want to give her atropine. I discussed the management plan with her father Mr. Baxter in detail at [phone]. Mr. Baxter said his daughter was suffering from asthma and bipolar disorder. 01/19/20; patient is on mechanical ventilation FiO2 of 35 and PEEP of 8, patient is on fentanyl and Versed for sedation. Patient is on dexamethasone day 8. From the severe discontinued after she took for 4 days per ID recommendation due to bradycardia. Cardiology and nephrology consult appreciated. Discussed with her father in detail about the management plan on 01/18/2020. Continue with the same management. Vent management as per senior bioinformatics specialist. 01/19 patient remains on vent, on FiO2 of 30% and PEEP of 8. She is on Diprivan and fentanyl. Per discussion with RN ,patient is anxious and intermittently agitated. Patient is awake and alert. Unable to perform review of systems secondary to patient being intubated. All interdisciplinary notes reviewed Lab results reviewed 01/20 no acute events overnight, groggy secondary to sedation, opens eyes to verbal stimulus, yesterday's events noted, BP now well controlled with heart ra te also in the normal range. Will adjust blood pressure medication 01/22/20 no acute events overnight, opens eyes to verbal stimulus, yesterday's events noted, BP now well controlled with heart rate also in the normal range. Will adjust blood pressure medication 01/23/2020--patient being weaned so that he can be extubated 01/24/2020 patient extubated today 01/25/2020 patient on BiPAP 01/26/2020 patient still on oxygen 01/27/2020 patient still on high flow oxygen about 30 L 01/28/2020 patient is down to 3 L nasal cannula oxygen and feeling better Hospitalist Physical - Constitutional Vitals: Temp Pulse Resp BP Pulse Ox 98.2 F 123 H 26 H 156/83 94 01/29/20 11:45 01/29/20 11:45 01/29/20 11:45 01/29/20 14:48 01/29/20 11:45 General appearance: Present: no acute distress, well-nourished - EENT Eyes: Present: PERRL ENT: hearing intact, clear oral mucosa - Neck Neck: Present: supple, normal ROM - Respiratory Respiratory effort: normal Respiratory: bilateral: diminished - Cardiovascular Rhythm: regular Heart Sounds: Present: S1 & S2. Absent: systolic murmur, diastolic murmur - Extremities Extremities: no ischemia, pulses intact, pulses symmetrical, No edema, normal temperature, normal color, Full ROM - Abdominal General gastrointestinal: soft, non-tender, non-distended, normal bowel sounds - Integumentary Integumentary: Present: clear, warm, dry - Psychiatric Psychiatric: appropriate mood/affect, cooperative - Neurologic Neurologic: CNII-XII intact, no focal deficits, moves all extremities Results - Labs CBC & Chem 7: 01/29/20 07:32 01/29/20 07:32 Labs: Laboratory Last Values WBC 10.4 K/mm3 (4.5-11.0) 01/29/20 07: RBC 3.55 M/mm3 (3.65-5.03) L 01/29/20 07:32 Hgb 8.9 gm/dl (10.1-14.3) L 01/29/20 07:32 Hct 26.9 % (30.3-42.9) L 01/29/20 07:32 MCV 76 fl (79-97) L 01/29/20 07:32 MCH 25 pg (28-32) L 01/29/20 07: MCHC 33 % (30-34) 01/29/20 07: RDW 15.1 % (13.2-15.2) 01/29/20 07:32 Plt Count 361 K/mm3 (140-440) 01/29/20 07:32 Lymph % (Auto) 19.2 % (13.4-35.0) 01/29/20 07:32 [place] % (Auto) 7.1 % (0.0-7.3) 01/29/20 07:32 Eos % (Auto) 2.7 % (0.0-4.3) 01/29/20 07:32 Baso % (Auto) 0.6 % (0.0-1.8) 01/29/20 07:32 Lymph # (Auto) 2.0 K/mm3 (1.2-5.4) 01/29/20 07:32 [place] # (Auto) 0.7 K/mm3 (0.0-0.8) 01/29/20 07:32 Eos # (Auto) 0.3 K/mm3 (0.0-0.4) 01/29/20 07:32 Baso # (Auto) 0.1 K/mm3 (0.0-0.1) 01/29/20 07:32 Add Manual Diff Complete 01/17/20 06:00 Total Counted 100 01/17/20 06:00 Seg Neutrophils % 70.4 % (40.0-70.0) H 01/29/20 07:32 Seg Neuts % (Manual) 81.0 % (40.0-70.0) H 01/17/20 06:00 Band Neutrophils % 0 % 01/17/20 06:00 Lymphocytes % (Manual) 10.0 % (13.4-35.0) L 01/17/20 06:00 Reactive Lymphs % (Man) 0 % 01/17/20 06:00 Monocytes % (Manual) 2.0 % (0.0-7.3) 01/17/20 06:00 Eosinophils % (Manual) 0 % (0.0-4.3) 01/17/20 06:00 Basophils % (Manual) 0 % (0.0-1.8) 01/17/20 06:00 Metamyelocytes % 6.0 % 01/17/20 06:00 Myelocytes % 1.0 % 01/17/20 06:00 Promyelocytes % 0 % 01/17/20 06:00 Blast Cells % 0 % 01/17/20 06:00 Nucleated RBC % Not Reportable 01/17/20 06:00 Seg Neutrophils # 7.3 K/mm3 (1.8-7.7) 01/29/20 07:32 Seg Neutrophils # Man 9.3 K/mm3 (1.8-7.7) H 01/17/20 06:00 Band Neutrophils # 0.0 K/mm3 01/17/20 06:00 Lymphocytes # (Manual) 1.2 K/mm3 (1.2-5.4) 01/17/20 06:00 Abs React Lymphs (Man) 0.0 K/mm3 01/17/20 06:00 Monocytes # (Manual) 0.2 K/mm3 (0.0-0.8) 01/17/20 06:00 Eosinophils # (Manual) 0.0 K/mm3 (0.0-0.4) 01/17/20 06:00 Basophils # (Manual) 0.0 K/mm3 (0.0-0.1) 01/17/20 06:00 Metamyelocytes # 0.7 K/mm3 01/17/20 06:00 Myelocytes # 0.1 K/mm3 01/17/20 06:00 Promyelocytes # 0.0 K/mm3 01/17/20 06:00 Blast Cells # 0.0 K/mm3 01/17/20 06:00 WBC Morphology Not Reportable 01/17/20 06:00 Hypersegmented Neuts Not Reportable 01/17/20 06:00 Hyposegmented Neuts Not Reportable 01/17/20 06:00 Hypogranular Neuts Not Reportable 01/17/20 06:00 Smudge Cells Not Reportable 01/17/20 06:00 Toxic Granulation Not Reportable 01/17/20 06:00 Toxic Vacuolation Not Reportable 01/17/20 06:00 Dohle Bodies Not Reportable 01/17/20 06:00 Pelger-Huet Anomaly Not Reportable 01/17/20 06:00 Shanti Rods Not Reportable 01/17/20 06:00 Platelet Estimate Consistent w auto 01/17/20 06:00 Clumped Platelets Not Reportable 01/17/20 06:00 Plt Clumps, EDTA Not Reportable 01/17/20 06:00 Large Platelets Not Reportable 01/17/20 06:00 Giant Platelets Not Reportable 01/17/20 06:00 Platelet Satelliting Not Reportable 01/17/20 06:00 Plt Morphology Comment Not Reportable 01/17/20 06:00 RBC Morphology Not Reportable 01/17/20 06:00 Dimorphic RBCs Not Reportable 01/17/20 06:00 Polychromasia Not Reportable 01/17/20 06:00 Hypochromasia 1+ 01/17/20 06:00 Poikilocytosis Not Reportable 01/17/20 06:00 Anisocytosis Few 01/17/20 06:00 Microcytosis Not Reportable 01/17/20 06:00 Macrocytosis Not Reportable 01/17/20 06:00 Spherocytes Not Reportable 01/17/20 06:00 Pappenheimer Bodies Not Reportable 01/17/20 06:00 Sickle Cells Not Reportable 01/17/20 06:00 Target Cells Not Reportable 01/17/20 06:00 Tear Drop Cells Few 01/17/20 06:00 Ovalocytes Not Reportable 01/17/20 06:00 Helmet Cells Not Reportable 01/17/20 06:00 [place] Bodies Not Reportable 01/17/20 06:00 [place] Rings Not Reportable 01/17/20 06:00 [place] Cells Not Reportable 01/17/20 06:00 Bite Cells Not Reportable 01/17/20 06:00 Crenated Cell Not Reportable 01/17/20 06:00 Elliptocytes Not Reportable 01/17/20 06:00 Acanthocytes (Spur) Not Reportable 01/17/20 06:00 Rouleaux Not Reportable 01/17/20 06:00 Hemoglobin C Crystals Not Reportable 01/17/20 06:00 Schistocytes Not Reportable 01/17/20 06:00 Malaria parasites Not Reportable 01/17/20 06:00 Gurmeet Bodies Not Reportable 01/17/20 06:00 Hem Pathologist Commnt No 01/17/20 06:00 D-Dimer 1505.14 ng/mlDDU (0-234) H 01/29/20 07:32 ABG pH 7.46 (7.320-7.450) H 01/22/20 03:35 POC ABG pCO2 36.6 mmHg (32.0-48.0) 01/22/20 03:35 ABG pCO2 46.1 mm Hg 01/20/20 04:21 POC ABG pO2 84.0 mmHg (83-108) 01/22/20 03:35 ABG pO2 81.7 mm Hg (80.0-90.0) 01/20/20 04:21 POC ABG HCO3 25.4 01/22/20 03:35 ABG HCO3 26.8 mmol/L (20.0-26.0) H 01/20/20 04:21 ABG O2 Saturation 96.5 % (95.0-99.0) 01/20/20 04:21 ABG O2 Content 14.3 (0.0-44) 01/20/20 04:21 POC ABG Base Excess 1.7 01/22/20 03:35 ABG Base Excess 1.3 mmol/L (-2.0-3.0) 01/20/20 04:21 ABG Hemoglobin 10.4 (12.0-17.5) L 01/22/20 03:35 ABG Oxyhemoglobin 96.8 (94-98) 01/22/20 03:35 ABG Carboxyhemoglobin 1.9 % (0.0-5.0) 01/20/20 04:21 ABG Methemoglobin 0.3 (0.0-1.5) 01/22/20 03:35 Oxyhemoglobin 94.3 % (95.0-99.0) L 01/20/20 04:21 Carboxyhemoglobin 0.8 (0.5-1.5) 01/22/20 03:35 FiO2 30.0 01/22/20 03:35 Sodium 141 mmol/L (137-145) 01/29/20 07:32 Potassium 4.2 mmol/L (3.6-5.0) 01/29/20 07:32 Chloride 99.5 mmol/L (98-107) 01/29/20 07:32 Carbon Dioxide 31 mmol/L (22-30) H 01/29/20 07:32 Anion Gap 15 mmol/L 01/29/20 07:32 BUN 13 mg/dL (7-17) 01/29/20 07:32 Creatinine 0.7 mg/dL (0.6-1.2) 01/29/20 07:32 Estimated GFR > 60 ml/min 01/29/20 07:32 BUN/Creatinine Ratio 19 % 01/29/20 07:32 Glucose 160 mg/dL (65-100) H 01/29/20 07:32 POC Glucose 216 (70-105) H 01/29/20 12:03 Lactic Acid 1.40 mmol/L (0.7-2.0) 01/12/20 07:07 Calcium 9.3 mg/dL (8.4-10.2) 01/29/20 07:32 Magnesium 3.00 mg/dL (1.7-2.3) H 01/15/20 14:35 Ferritin 267.6 ng/mL (10.0-200.0) H 01/26/20 04:43 Total Bilirubin 0.30 mg/dL (0.1-1.2) 01/29/20 07:32 AST 38 units/L (5-40) 01/29/20 07:32 ALT 65 units/L (7-56) H 01/29/20 07:32 Alkaline Phosphatase 120 units/L (35-129) 01/29/20 07:32 Lactate Dehydrogenase 319 units/L (91-180) H 01/26/20 04:43 C-Reactive Protein 6.20 mg/dL (0.00-1.30) H 01/29/20 07:32 Serum Total Protein 6.2 g/dL (6.1-8.1) 01/14/20 Unknown Total Protein 6.0 g/dL (6.3-8.2) L 01/29/20 07:32 Albumin 3.0 g/dL (3.9-5) L 01/29/20 07:32 Albumin/Globulin Ratio 1.0 % 01/29/20 07:32 Viikv-7-Peyxqubrh 0.6 g/dL (0.2-0.3) H 01/14/20 Unknown Kjzml-3-Leeorkvey 1.1 g/dL (0.5-0.9) H 01/14/20 Unknown Beta Globulins 0.4 g/dL (0.2-0.5) 01/14/20 Unknown Gamma Globulins 0.8 g/dL (0.8-1.7) 01/14/20 Unknown Abnorm Protein Band 1 see below 01/14/20 Unknown PEP Interpretation see below H 01/14/20 Unknown Triglycerides 198 mg/dL (2-149) H 01/18/20 05:00 Procalcitonin 0.34 ng/mL (<0.15) 01/26/20 04:43 TSH 0.221 mlU/mL (0.270-4.200) L 01/15/20 14:35 Free T4 1.23 ng/dL (0.76-1.46) 01/15/20 14:35 Urine Color Yellow (Yellow) 01/11/20 21:50 Urine Turbidity Clear (Clear) 01/11/20 21:50 Urine pH 6.0 (5.0-7.0) 01/11/20 21:50 Ur Specific [place] 1.030 (1.003-1.030) 01/11/20 21:50 Urine Protein >500 mg/dL (Negative) 01/11/20 21:50 Urine Glucose (UA) >=500 mg/dL (Negative) 01/11/20 21:50 Urine Ketones 20 mg/dL (Negative) 01/11/20 21:50 Urine Blood Mod (Negative) 01/11/20 21:50 Urine Nitrite Neg (Negative) 01/11/20 21:50 Urine Bilirubin Neg (Negative) 01/11/20 21:50 Urine Urobilinogen < 2.0 mg/dL (<2.0) 01/11/20 21:50 Ur Leukocyte Esterase Neg (Negative) 01/11/20 21:50 Urine WBC (Auto) 3.0 /HPF (0.0-6.0) 01/11/20 21:50 Urine RBC (Auto) 1.0 /HPF (0.0-6.0) 01/11/20 21:50 U Epithel Cells (Auto) < 1.0 /HPF (0-13.0) 01/11/20 21:50 Urine Bacteria (Auto) 1+ /HPF (Negative) 01/11/20 21:50 CHICA Screen Positive (Negative) H 01/14/20 Unknown Proteinase 3 (PR3) Ab <1.0 AI (<1.0) 01/14/20 Unknown Myeloperoxidase Ab <1.0 AI (<1.0) 01/14/20 Unknown Complement C3 172 mg/dL (83-193) 01/14/20 Unknown Complement C4 76 mg/dL (15-57) H 01/14/20 Unknown Coronavirus (PCR) Positive (Negative) A 01/12/20 09:00 Blood Type B POSITIVE 01/11/20 19:18 Antibody Screen Negative 01/11/20 19:18 De Oliveira/IV: Voiding Method External Female Catheter IV Catheter Type [Right Upper PICC Line arm] IV Catheter Type [Right Hand] INT / Saline Lock IV Catheter Type [Left Forearm INT / Saline Lock ] IV Catheter Type [Right Peripheral IV Antecubital] Active Medications - Current Medications Current Medications: Generic Name Dose Route Start Last Admin Trade Name Freq PRN Reason Stop Dose Admin Acetaminophen 650 mg 01/11/20 18:55 01/28/20 02:51 Tylenol PO 650 mg Q4H PRN Administration Pain MILD(1-3)/Fever >100.5/CORDOVA Alprazolam 0.5 mg 01/22/20 12:00 01/28/20 02:51 Xanax PO 0.5 mg Q8H PRN Administration Anxiety Lipase/Protease/Amylase 1 each 01/19/20 18:[address] 10,500 Unit FEEDTUBE PRN PRN For Clogged Feeding Tube Clonazepam 1 mg 01/22/20 12:00 01/29/20 11:15 Klonopin PO 1 mg BID ASHISH Administration Clonidine HCl 0.1 mg 01/21/20 14:00 01/29/20 11:15 Catapres PO 0.1 mg Q12HR ASHISH Administration Enalaprilat 1.25 mg 01/19/20 17:45 01/20/20 12:42 Vasotec IV 1.25 mg Q6HR PRN Administration Blood Pressure Enoxaparin Sodium 40 mg 01/25/20 22:00 01/28/20 21:38 Enoxaparin SUB-Q 40 mg QDAY@2200 ASHISH Administration Famotidine 20 mg 01/21/20 10:00 01/29/20 11:14 Pepcid PO 20 mg BID ASHISH Administration Hydralazine HCl 10 mg 01/19/20 16:33 01/28/20 20:03 Apresoline IV 10 mg Q4HR PRN Administration SBP >160 Hydralazine HCl 100 mg 01/20/20 16:07 01/29/20 14:48 Apresoline PO 100 mg Q8HR ASHISH Administration Hydromorphone HCl 0.25 mg 01/11/20 18:59 01/26/20 21:15 Dilaudid IV 0.25 mg Q4H PRN Administration Pain, Moderate (4-6) Hydrophilic Ointment 1 applic 01/13/20 01:52 Vaseline Lip Therapy TP Q2HR PRN Dry Lips Insulin Glargine 15 units 01/24/20 10:00 01/29/20 11:16 Lantus SUB-Q 15 units DAILY ASHISH Administration Insulin Human Lispro 0 unit 01/25/20 12:00 01/29/20 14:50 Humalog SUB-Q 4 unit Q6HR ASHISH Administration Protocol Labetalol HCl 10 mg 01/19/20 16:54 01/29/20 02:09 Labetalol IV 10 mg Q6H PRN Administration Blood Pressure Multi-Ingred Cream/Lotion/Oil/Oint 1 applic 01/13/20 01:52 Artificial Tears Ophth Oint OU Q4HR PRN Dry Eye(s) Ondansetron HCl 4 mg 01/11/20 18:55 Zofran IV Q8H PRN Nausea And Vomiting Phenol 1 spray 01/28/20 06:29 01/28/20 10:04 Chloraseptic MM 1 spray PRN PRN Administration Sore Throat Quetiapine Fumarate 300 mg 01/24/20 15:00 01/29/20 11:14 Seroquel PO 300 mg BID ASHISH Administration Simple Syrup 15 ml 01/19/20 18:10 Simple Syrup FEEDTUBE PRN PRN Hypoglycemia Simple Syrup 30 ml 01/19/20 18:10 Simple Syrup FEEDTUBE PRN PRN Hypoglycemia Sodium Bicarbonate 325 mg 01/19/20 18:10 Sodium Bicarbonate FEEDTUBE PRN PRN For Clogged Feeding Tube Sodium Chloride 10 ml 01/11/20 22:00 01/29/20 11:18 Sodium Chloride Flush Syringe 10 Ml IV 10 ml BID ASHISH Administration Sodium Chloride 10 ml 01/11/20 18:55 Sodium Chloride Flush Syringe 10 Ml IV PRN PRN LINE FLUSH Nutrition/Malnutrition Assess - Dietary Evaluation Nutrition/Malnutrition Findings: Nutrition Notes Start: 01/13/20 08:58 Freq: Status: Active Protocol: Document 01/28/20 13:52 LM (Rec: 01/28/20 13:57 LM [id number]) Nutrition Notes Initial or Follow up Reassessment Current Diagnosis Diabetes,Sepsis,Respiratory Failure Other Pertinent Diagnosis Pneu Current Diet Glucerna 1.2 at 55ml/hr Labs/Tests POC glu 192 Pertinent Medications Lantus Height 4 ft 11 in Weight 115 kg [place] Body Weight (kg) 43.18 BMI 51.2 Weight Status Morbidly Obese Subjective/Other Information Pt is tolerating TF at goal. Percent of energy/protein needs met: 100%/100% Burn Absent Trauma Absent GI Symptoms None Current % PO Negligible Minimum of two criteria No physical signs of malnutrition #1 Nutrition Diagnosis Inadequate oral intake Diagnosis Progress(for reassessment Continues documentation) Is patient on ventilator? No Is Patient Ambulatory and/or Out of Bed No REE-([facility]-confined to bed) 2090.928 Kcal/Kg value to use for calculation 13 Approximate Energy Requirements Using 1495 kcal/Kg Calculation Used for Recommendations Kcal/kg Additional Notes Protein needs:64-80g (0.8-1g/ kg AdjBW) Fluid needs 1ml/kcal Nutrition Intervention Change Diet Order: TF Nutrition Support: Glucerna 1.2 at 55ml/hr Flush 100 q4h Flush 250 q4h for hypernatremia Kcal 1,584 Protein (gm) 79 Fluid (mL) 1,062 Goal #1 TF tolerance Goal #2 Meet at least 80% of energy and protein needs via TF Anticipated Discharge Needs: Unable to determine at this time. Follow-Up By: 02/01/20 Additional Comments F/U for TF tolerance <ALINA THOMPSON M - Last Filed: 01/30/20 07:09> Hospitalist Physical - Constitutional Vitals: Temp Pulse Resp BP Pulse Ox 97.6 F 113 H 16 145/80 100 01/30/20 04:59 01/30/20 04:59 01/30/20 04:59 01/30/20 04:59 01/30/20 04:59 Results - Labs CBC & Chem 7: 01/29/20 07:32 01/29/20 07:32 Labs: Laboratory Last Values WBC 10.4 K/mm3 (4.5-11.0) 01/29/20 07:32 RBC 3.55 M/mm3 (3.65-5.03) L 01/29/20 07:32 Hgb 8.9 gm/dl (10.1-14.3) L 01/29/20 07:32 Hct 26.9 % (30.3-42.9) L 01/29/20 07:32 MCV 76 fl (79-97) L 01/29/20 07:32 MCH 25 pg (28-32) L 01/29/20 07:32 MCHC 33 % (30-34) 01/29/20 07:32 RDW 15.1 % (13.2-15.2) 01/29/20 07:32 Plt Count 361 K/mm3 (140-440) 01/29/20 07:32 Lymph % (Auto) 19.2 % (13.4-35.0) 01/29/20 07:32 [place] % (Auto) 7.1 % (0.0-7.3) 01/29/20 07:32 Eos % (Auto) 2.7 % (0.0-4.3) 01/29/20 07:32 Baso % (Auto) 0.6 % (0.0-1.8) 01/29/20 07:32 Lymph # (Auto) 2.0 K/mm3 (1.2-5.4) 01/29/20 07:32 [place] # (Auto) 0.7 K/mm3 (0.0-0.8) 01/29/20 07:32 Eos # (Auto) 0.3 K/mm3 (0.0-0.4) 01/29/20 07:32 Baso # (Auto) 0.1 K/mm3 (0.0-0.1) 01/29/20 07:32 Add Manual Diff Complete 01/17/20 06:00 Total Counted 100 01/17/20 06:00 Seg Neutrophils % 70.4 % (40.0-70.0) H 01/29/20 07:32 Seg Neuts % (Manual) 81.0 % (40.0-70.0) H 01/17/20 06:00 Band Neutrophils % 0 % 01/17/20 06:00 Lymphocytes % (Manual) 10.0 % (13.4-35.0) L 01/17/20 06:00 Reactive Lymphs % (Man) 0 % 01/17/20 06:00 Monocytes % (Manual) 2.0 % (0.0-7.3) 01/17/20 06:00 Eosinophils % (Manual) 0 % (0.0-4.3) 01/17/20 06:00 Basophils % (Manual) 0 % (0.0-1.8) 01/17/20 06:00 Metamyelocytes % 6.0 % 01/17/20 06:00 Myelocytes % 1.0 % 01/17/20 06:00 Promyelocytes % 0 % 01/17/20 06:00 Blast Cells % 0 % 01/17/20 06:00 Nucleated RBC % Not Reportable 01/17/20 06:00 Seg Neutrophils # 7.3 K/mm3 (1.8-7.7) 01/29/20 07:32 Seg Neutrophils # Man 9.3 K/mm3 (1.8-7.7) H 01/17/20 06:00 Band Neutrophils # 0.0 K/mm3 01/17/20 06:00 Lymphocytes # (Manual) 1.2 K/mm3 (1.2-5.4) 01/17/20 06:00 Abs React Lymphs (Man) 0.0 K/mm3 01/17/20 06:00 Monocytes # (Manual) 0.2 K/mm3 (0.0-0.8) 01/17/20 06:00 Eosinophils # (Manual) 0.0 K/mm3 (0.0-0.4) 01/17/20 06:00 Basophils # (Manual) 0.0 K/mm3 (0.0-0.1) 01/17/20 06:00 Metamyelocytes # 0.7 K/mm3 01/17/20 06:00 Myelocytes # 0.1 K/mm3 01/17/20 06:00 Promyelocytes # 0.0 K/mm3 01/17/20 06:00 Blast Cells # 0.0 K/mm3 01/17/20 06:00 WBC Morphology Not Reportable 01/17/20 06:00 Hypersegmented Neuts Not Reportable 01/17/20 06:00 Hyposegmented Neuts Not Reportable 01/17/20 06:00 Hypogranular Neuts Not Reportable 01/17/20 06:00 Smudge Cells Not Reportable 01/17/20 06:00 Toxic Granulation Not Reportable 01/17/20 06:00 Toxic Vacuolation Not Reportable 01/17/20 06:00 Dohle Bodies Not Reportable 01/17/20 06:00 Pelger-Huet Anomaly Not Reportable 01/17/20 06:00 Shanti Rods Not Reportable 01/17/20 06:00 Platelet Estimate Consistent w auto 01/17/20 06:00 Clumped Platelets Not Reportable 01/17/20 06:00 Plt Clumps, EDTA Not Reportable 01/17/20 06:00 Large Platelets Not Reportable 01/17/20 06:00 Giant Platelets Not Reportable 01/17/20 06:00 Platelet Satelliting Not Reportable 01/17/20 06:00 Plt Morphology Comment Not Reportable 01/17/20 06:00 RBC Morphology Not Reportable 01/17/20 06:00 Dimorphic RBCs Not Reportable 01/17/20 06:00 Polychromasia Not Reportable 01/17/20 06:00 Hypochromasia 1+ 01/17/20 06:00 Poikilocytosis Not Reportable 01/17/20 06:00 Anisocytosis Few 01/17/20 06:00 Microcytosis Not Reportable 01/17/20 06:00 Macrocytosis Not Reportable 01/17/20 06:00 Spherocytes Not Reportable 01/17/20 06:00 Pappenheimer Bodies Not Reportable 01/17/20 06:00 Sickle Cells Not Reportable 01/17/20 06:00 Target Cells Not Reportable 01/17/20 06:00 Tear Drop Cells Few 01/17/20 06:00 Ovalocytes Not Reportable 01/17/20 06:00 Helmet Cells Not Reportable 01/17/20 06:00 [place] Bodies Not Reportable 01/17/20 06:00 [place] Rings Not Reportable 01/17/20 06:00 [place] Cells Not Reportable 01/17/20 06:00 Bite Cells Not Reportable 01/17/20 06:00 Crenated Cell Not Reportable 01/17/20 06:00 Elliptocytes Not Reportable 01/17/20 06:00 Acanthocytes (Spur) Not Reportable 01/17/20 06:00 Rouleaux Not Reportable 01/17/20 06:00 Hemoglobin C Crystals Not Reportable 01/17/20 06:00 Schistocytes Not Reportable 01/17/20 06:00 Malaria parasites Not Reportable 01/17/20 06:00 [place] Bodies Not Reportable 01/17/20 06:00 Hem Pathologist Commnt No 01/17/20 06:00 D-Dimer 1505.14 ng/mlDDU (0-234) H 01/29/20 07:32 ABG pH 7.46 (7.320-7.450) H 01/22/20 03:35 POC ABG pCO2 36.6 mmHg (32.0-48.0) 01/22/20 03:35 ABG pCO2 46.1 mm Hg 01/20/20 04:21 POC ABG pO2 84.0 mmHg (83-108) 01/22/20 03:35 ABG pO2 81.7 mm Hg (80.0-90.0) 01/20/20 04:21 POC ABG HCO3 25.4 01/22/20 03:35 ABG HCO3 26.8 mmol/L (20.0-26.0) H 01/20/20 04:21 ABG O2 Saturation 96.5 % (95.0-99.0) 01/20/20 04:21 ABG O2 Content 14.3 (0.0-44) 01/20/20 04:21 POC ABG Base Excess 1.7 01/22/20 03:35 ABG Base Excess 1.3 mmol/L (-2.0-3.0) 01/20/20 04:21 ABG Hemoglobin 10.4 (12.0-17.5) L 01/22/20 03:35 ABG Oxyhemoglobin 96.8 (94-98) 01/22/20 03:35 ABG Carboxyhemoglobin 1.9 % (0.0-5.0) 01/20/20 04:21 ABG Methemoglobin 0.3 (0.0-1.5) 01/22/20 03:35 Oxyhemoglobin 94.3 % (95.0-99.0) L 01/20/20 04:21 Carboxyhemoglobin 0.8 (0.5-1.5) 01/22/20 03:35 FiO2 30.0 01/22/20 03:35 Sodium 141 mmol/L (137-145) 01/29/20 07:32 Potassium 4.2 mmol/L (3.6-5.0) 01/29/20 07:32 Chloride 99.5 mmol/L (98-107) 01/29/20 07:32 Carbon Dioxide 31 mmol/L (22-30) H 01/29/20 07:32 Anion Gap 15 mmol/L 01/29/20 07:32 BUN 13 mg/dL (7-17) 01/29/20 07:32 Creatinine 0.7 mg/dL (0.6-1.2) 01/29/20 07:32 Estimated GFR > 60 ml/min 01/29/20 07:32 BUN/Creatinine Ratio 19 % 01/29/20 07:32 Glucose 160 mg/dL (65-100) H 01/29/20 07:32 POC Glucose 160 (70-105) H 01/30/20 05:20 Lactic Acid 1.40 mmol/L (0.7-2.0) 01/12/20 07:07 Calcium 9.3 mg/dL (8.4-10.2) 01/29/20 07:32 Magnesium 3.00 mg/dL (1.7-2.3) H 01/15/20 14:35 Ferritin 267.6 ng/mL (10.0-200.0) H 01/26/20 04:43 Total Bilirubin 0.30 mg/dL (0.1-1.2) 01/29/20 07:32 AST 38 units/L (5-40) 01/29/20 07:32 ALT 65 units/L (7-56) H 01/29/20 07:32 Alkaline Phosphatase 120 units/L (35-129) 01/29/20 07:32 Lactate Dehydrogenase 319 units/L (91-180) H 01/26/20 04:43 C-Reactive Protein 6.20 mg/dL (0.00-1.30) H 01/29/20 07:32 Serum Total Protein 6.2 g/dL (6.1-8.1) 01/14/20 Unknown Total Protein 6.0 g/dL (6.3-8.2) L 01/29/20 07:32 Albumin 3.0 g/dL (3.9-5) L 01/29/20 07:32 Albumin/Globulin Ratio 1.0 % 01/29/20 07:32 Ojyfs-3-Kvnaoliin 0.6 g/dL (0.2-0.3) H 01/14/20 Unknown Tisbb-5-Izbaehvxt 1.1 g/dL (0.5-0.9) H 01/14/20 Unknown Beta Globulins 0.4 g/dL (0.2-0.5) 01/14/20 Unknown Gamma Globulins 0.8 g/dL (0.8-1.7) 01/14/20 Unknown Abnorm Protein Band 1 see below 01/14/20 Unknown PEP Interpretation see below H 01/14/20 Unknown Triglycerides 198 mg/dL (2-149) H 01/18/20 05:00 Procalcitonin 0.34 ng/mL (<0.15) 01/26/20 04:43 TSH 0.221 mlU/mL (0.270-4.200) L 01/15/20 14:35 Free T4 1.23 ng/dL (0.76-1.46) 01/15/20 14:35 Urine Color Yellow (Yellow) 01/11/20 21:50 Urine Turbidity Clear (Clear) 01/11/20 21:50 Urine pH 6.0 (5.0-7.0) 01/11/20 21:50 Ur Specific [place] 1.030 (1.003-1.030) 01/11/20 21:50 Urine Protein >500 mg/dL (Negative) 01/11/20 21:50 Urine Glucose (UA) >=500 mg/dL (Negative) 01/11/20 21:50 Urine Ketones 20 mg/dL (Negative) 01/11/20 21:50 Urine Blood Mod (Negative) 01/11/20 21:50 Urine Nitrite Neg (Negative) 01/11/20 21:50 Urine Bilirubin Neg (Negative) 01/11/20 21:50 Urine Urobilinogen < 2.0 mg/dL (<2.0) 01/11/20 21:50 Ur Leukocyte Esterase Neg (Negative) 01/11/20 21:50 Urine WBC (Auto) 3.0 /HPF (0.0-6.0) 01/11/20 21:50 Urine RBC (Auto) 1.0 /HPF (0.0-6.0) 01/11/20 21:50 U Epithel Cells (Auto) < 1.0 /HPF (0-13.0) 01/11/20 21:50 Urine Bacteria (Auto) 1+ /HPF (Negative) 01/11/20 21:50 CHICA Screen Positive (Negative) H 01/14/20 Unknown Proteinase 3 (PR3) Ab <1.0 AI (<1.0) 01/14/20 Unknown Myeloperoxidase Ab <1.0 AI (<1.0) 01/14/20 Unknown Complement C3 172 mg/dL (83-193) 01/14/20 Unknown Complement C4 76 mg/dL (15-57) H 01/14/20 Unknown Coronavirus (PCR) Positive (Negative) A 01/12/20 09:00 Blood Type B POSITIVE 01/11/20 19:18 Antibody Screen Negative 01/11/20 19:18 De Oliveira/IV: Voiding Method External Female Catheter IV Catheter Type [Right Upper PICC Line arm] IV Catheter Type [Right Hand] INT / Saline Lock IV Catheter Type [Left Forearm INT / Saline Lock ] IV Catheter Type [Right Peripheral IV Antecubital] Active Medications - Current Medications Current Medications: Generic Name Dose Route Start Last Admin Trade Name Freq PRN Reason Stop Dose Admin Acetaminophen 650 mg 01/11/20 18:55 01/30/20 05:20 Tylenol PO 650 mg Q4H PRN Administration Pain MILD(1-3)/Fever >100.5/CORDOVA Albuterol 2 puff 01/29/20 18:40 Proair IH Q4HRT PRN Shortness Of Breath Alprazolam 0.5 mg 01/22/20 12:00 01/28/20 02:51 Xanax PO 0.5 mg Q8H PRN Administration Anxiety Lipase/Protease/Amylase 1 each 01/19/20 18:10 Pancreaniceto Marley 10,500 Unit FEEDTUBE PRN PRN For Clogged Feeding Tube Clonazepam 1 mg 01/22/20 12:00 01/29/20 21:43 Klonopin PO 1 mg BID ASHISH Administration Clonidine HCl 0.1 mg 01/21/20 14:00 01/29/20 21:42 Catapres PO 0.1 mg Q12HR ASHISH Administration Enalaprilat 1.25 mg 01/19/20 17:45 01/20/20 12:42 Vasotec IV 1.25 mg Q6HR PRN Administration Blood Pressure Enoxaparin Sodium 40 mg 01/25/20 22:00 01/29/20 21:41 Enoxaparin SUB-Q 40 mg QDAY@2200 ASHISH Administration Famotidine 20 mg 01/21/20 10:00 01/29/20 21:43 Pepcid PO 20 mg BID ASHISH Administration Hydralazine HCl 10 mg 01/19/20 16:33 01/28/20 20:03 Apresoline IV 10 mg Q4HR PRN Administration SBP >160 Hydralazine HCl 100 mg 01/20/20 16:07 01/30/20 05:10 Apresoline PO 100 mg Q8HR ASHISH Administration Hydromorphone HCl 0.25 mg 01/11/20 18:59 01/26/20 21:15 Dilaudid IV 0.25 mg Q4H PRN Administration Pain, Moderate (4-6) Hydrophilic Ointment 1 applic 01/13/20 01:52 Vaseline Lip Therapy TP Q2HR PRN Dry Lips Insulin Glargine 15 units 01/24/20 10:00 01/29/20 11:16 Lantus SUB-Q 15 units DAILY ASHISH Administration Insulin Human Lispro 0 unit 01/25/20 12:00 01/30/20 05:10 Humalog SUB-Q 3 unit Q6HR ASHISH Administration Protocol Labetalol HCl 10 mg 01/19/20 16:54 01/29/20 21:59 Labetalol IV 10 mg Q6H PRN Administration Blood Pressure Multi-Ingred Cream/Lotion/Oil/Oint 1 applic 01/13/20 01:52 Artificial Tears Ophth Oint OU Q4HR PRN Dry Eye(s) Ondansetron HCl 4 mg 01/11/20 18:55 Zofran IV Q8H PRN Nausea And Vomiting Phenol 1 spray 01/28/20 06:29 01/28/20 10:04 Chloraseptic MM 1 spray PRN PRN Administration Sore Throat Quetiapine Fumarate 300 mg 01/24/20 15:00 01/29/20 21:43 Seroquel PO 300 mg BID ASHISH Administration Simple Syrup 15 ml 01/19/20 18:10 Simple Syrup FEEDTUBE PRN PRN Hypoglycemia Simple Syrup 30 ml 01/19/20 18:10 Simple Syrup FEEDTUBE PRN PRN Hypoglycemia Sodium Bicarbonate 325 mg 01/19/20 18:10 Sodium Bicarbonate FEEDTUBE PRN PRN For Clogged Feeding Tube Sodium Chloride 10 ml 01/11/20 22:00 01/29/20 21:43 Sodium Chloride Flush Syringe 10 Ml IV 10 ml BID ASHISH Administration Sodium Chloride 10 ml 01/11/20 18:55 Sodium Chloride Flush Syringe 10 Ml IV PRN PRN LINE FLUSH Nutrition/Malnutrition Assess - Dietary Evaluation Nutrition/Malnutrition Findings: Nutrition Notes Start: 01/13/20 08:58 Freq: Status: Active Protocol: Document 01/28/20 13:52 LM (Rec: 01/28/20 13:57 LM [email or web address]) Nutrition Notes Initial or Follow up Reassessment Current Diagnosis Diabetes,Sepsis,Respiratory Failure Other Pertinent Diagnosis Pneu Current Diet Glucerna 1.2 at 55ml/hr Labs/Tests POC glu 192 Pertinent Medications Lantus Height 4 ft 11 in Weight 115 kg [place] Body Weight (kg) 43.18 BMI 51.2 Weight Status Morbidly Obese Subjective/Other Information Pt is tolerating TF at goal. Percent of energy/protein needs met: 100%/100% Burn Absent Trauma Absent GI Symptoms None Current % PO Negligible Minimum of two criteria No physical signs of malnutrition #1 Nutrition Diagnosis Inadequate oral intake Diagnosis Progress(for reassessment Continues documentation) Is patient on ventilator? No Is Patient Ambulatory and/or Out of Bed No REE-([place]-St. Jeor-confined to bed) 2090.928 Kcal/Kg value to use for calculation 13 Approximate Energy Requirements Using 1495 kcal/Kg Calculation Used for Recommendations Kcal/kg Additional Notes Protein needs:64-80g (0.8-1g/ kg AdjBW) Fluid needs 1ml/kcal Nutrition Intervention Change Diet Order: TF Nutrition Support: Glucerna 1.2 at 55ml/hr Flush 100 q4h Flush 250 q4h for hypernatremia Kcal 1,584 Protein (gm) 79 Fluid (mL) 1,062 Goal #1 TF tolerance Goal #2 Meet at least 80% of energy and protein needs via TF Anticipated Discharge Needs: Unable to determine at this time. Follow-Up By: 02/01/20 Additional Comments F/U for TF tolerance
[2020-01-29] MEDS ORDERED: ALBUTEROL 8.5 GM MDI INHALATION IH PRN (18:40)
[2020-01-29] MEDS: ENOXAPARIN 40 MG/0.4 ML INJ SUB-Q SCH (21:41)
--- NOTE | 2020-01-29 22:06 | Progress Note ---
Assessment and Plan Patient awake. Resting on 4 litres O2. O2 saturation 98%. Patient having cough. No acute respiratory distress. Patient afebrile. No leukocytosis. Patient COVID Positive. Patient has CTA of chest 01/23/20 reported Slightly limited contrast b olus. No large central pulmonary embolus is detected. Scattered bilateral lung opacities concerning for viral infection. Mild bilateral atelectatic changes. D dimer 864. Patient was treated with remdesvir, dexamethasone, Ceftriaxone and Zithromax. Patient is on S/C Lovenox and Famotidine. - Patient Problems (1) Acute hypoxemic respiratory failure Current Visit: Yes Status: Acute Plan to address problem: O2 4 litres via nasal canula. Pro air 2 puffs po qid. Continue S/C Lovenox. Continue famotidine. (2) Pneumonia Current Visit: Yes Status: Acute Plan to address problem: Patient treated with Zithromax and ceftriaxone. Antibiotics as per ID. (3) Anxiety Current Visit: No Status: Acute Plan to address problem: Management as per Primary care. (4) COVID-19 virus infection Current Visit: Yes Status: Acute Plan to address problem: Patient treated with remdesvir and dexamethasone. and S/C Lovenox. Subjective Date of service: 01/29/20 Principal diagnosis: Ac. hypoxemic resp failure; COVID infection; PNA; ARACELI; Thrombocytopenia Interval history: Patient awake. Resting on 4 litres O2. O2 saturation 98%. Patient having slight cough. No acute respiratory distress. Patient afebrile. No leukocytosis. Patient COVID Positive. Patient has CTA of chest 01/23/20 reported Slightly limited contrast bolus. No large central pulmonary embolus is detected. Scattered bilateral lung opacities concerning for viral infection. Mild bilateral atelectatic changes. D dimer 864. Patient was treated with remdesvir, dexamethasone, Ceftriaxone and Zithromax. Patient is on S/C Lovenox and Famotidine. Objective Vital Signs - 12hr 01/29/20 01/29/20 01/29/20 11:15 11:45 14:48 Temperature 98.2 F Pulse Rate 125 H 123 H Respiratory 26 H Rate Blood Pressure 155/75 156/83 156/83 O2 Sat by Pulse 94 Oximetry 01/29/20 01/29/20 01/29/20 17:11 21:21 21:41 Temperature 98.2 F Pulse Rate 127 H 121 H Respiratory 24 Rate Blood Pressure 155/77 159/90 O2 Sat by Pulse 100 98 Oximetry 01/29/20 01/29/20 21:42 21:59 Temperature Pulse Rate 120 H 120 H Respiratory Rate Blood Pressure 159/90 O2 Sat by Pulse Oximetry Constitutional: no acute distress, alert, other (Morbidly obese AAW, NGT in nares) Eyes: non-icteric ENT: oropharynx moist Neck: supple, no lymphadenopathy, no JVD Effort: mildly labored Ascultation: Bilateral: diminished breath sounds, rhonchi Percussion: Bilateral: not dull Cardiovascular: regular rate and rhythm, other Gastrointestinal: normoactive bowel sounds, soft, non-tender, non-distended (protuberant) Integumentary: normal Extremities: no cyanosis, no edema, pulses normal, no ischemia or petechiae Neurologic: normal mental status, non-focal exam, pupils equal and round, CN II- XII normal, motor strength normal and Psychiatric: anxious CBC and BMP: 01/29/20 07:32 01/29/20 07:32 ABG, PT/INR, D-dimer: ABG ABG pH 7.46 (7.320-7.450) H 01/22/20 03:35 POC ABG pCO2 36.6 mmHg (32.0-48.0) 01/22/20 03:35 ABG pCO2 46.1 mm Hg 01/20/20 04:21 POC ABG pO2 84.0 mmHg (83-108) 01/22/20 03:35 ABG pO2 81.7 mm Hg (80.0-90.0) 01/20/20 04:21 POC ABG HCO3 25.4 01/22/20 03:35 ABG O2 Saturation 96.5 % (95.0-99.0) 01/20/20 04:21 PT/INR, D-dimer D-Dimer 1505.14 ng/mlDDU (0-234) H 01/29/20 07:32 Abnormal lab findings: Abnormal Labs 01/11/20 01/11/20 01/11/20 17:22 17:22 17:22 WBC RBC Hgb Hct MCV MCH RDW Plt Count Lymph % (Auto) Cochran % (Auto) Cochran # Cochran # (Auto) Seg Neutrophils % Seg Neuts % (Manual) Lymphocytes % (Manual) Seg Neutrophils # Seg Neutrophils # Man Lymphocytes # (Manual) D-Dimer 622.52 H ABG pH POC ABG pCO2 POC ABG pO2 ABG pO2 ABG O2 Saturation ABG Base Excess ABG Oxyhemoglobin ABG HCO3 ABG Hemoglobin Oxyhemoglobin Sodium Potassium Chloride 97.6 L Carbon Dioxide 18 L BUN Creatinine Glucose 199 H POC Glucose Lactic Acid 2.20 H* Calcium Ferritin AST 68 H Magnesium Lactate Dehydrogenase ALT C-Reactive Protein Total Protein Albumin 3.0 L Vuvbc-2-Ksltxscqy Tdkle-1-Vowpzqkyv PEP Interpretation Triglycerides TSH CHICA Screen Complement C4 Coronavirus (PCR) 01/11/20 01/11/20 01/11/20 17:22 17:22 23:29 WBC RBC Hgb Hct MCV MCH RDW Plt Count Lymph % (Auto) Cochran % (Auto) Cochran # Cochran # (Auto) Seg Neutrophils % Seg Neuts % (Manual) Lymphocytes % (Manual) Seg Neutrophils # Seg Neutrophils # Man Lymphocytes # (Manual) D-Dimer ABG pH POC ABG pCO2 POC ABG pO2 ABG pO2 ABG O2 Saturation ABG Base Excess ABG Oxyhemoglobin ABG HCO3 ABG Hemoglobin Oxyhemoglobin Sodium Potassium Chloride Carbon Dioxide BUN Creatinine Glucose 202 H POC Glucose Lactic Acid 2.10 H* Calcium Ferritin 270.3 H AST Magnesium Lactate Dehydrogenase 610 H ALT C-Reactive Protein 23.80 H Total Protein Albumin Lauml-6-Zodtscmje Jpped-8-Anmgttaoh PEP Interpretation Triglycerides TSH CHICA Screen Complement C4 Coronavirus (PCR) 01/12/20 01/12/20 01/12/20 07:07 07:07 09:00 WBC RBC 5.31 H Hgb Hct MCV 76 L MCH 25 L RDW 15.5 H Plt Count Lymph % (Auto) 11.2 L Cochran % (Auto) Cochran # Cochran # (Auto) Seg Neutrophils % 85.2 H Seg Neuts % (Manual) Lymphocytes % (Manual) Seg Neutrophils # 9.2 H Seg Neutrophils # Man Lymphocytes # (Manual) D-Dimer ABG pH POC ABG pCO2 POC ABG pO2 ABG pO2 ABG O2 Saturation ABG Base Excess ABG Oxyhemoglobin ABG HCO3 ABG Hemoglobin Oxyhemoglobin Sodium Potassium Chloride Carbon Dioxide 21 L BUN 23 H Creatinine Glucose 206 H POC Glucose Lactic Acid Calcium Ferritin AST Magnesium Lactate Dehydrogenase ALT C-Reactive Protein Total Protein Albumin Pwdkf-6-Bllwrbywr Cmtpb-1-Syhfoxpej PEP Interpretation Triglycerides TSH CHICA Screen Complement C4 Coronavirus (PCR) Positive A 01/13/20 01/13/20 01/13/20 01:02 04:45 05:10 WBC RBC Hgb Hct MCV MCH RDW Plt Count Lymph % (Auto) [place]ran % (Auto) Cochran # Cochran # (Auto) Seg Neutrophils % Seg Neuts % (Manual) Lymphocytes % (Manual) Seg Neutrophils # Seg Neutrophils # Man Lymphocytes # (Manual) D-Dimer > 82326 H ABG pH 7.19 L POC ABG pCO2 56.2 H POC ABG pO2 44.3 L 62.5 L ABG pO2 ABG O2 Saturation ABG Base Excess ABG Oxyhemoglobin 77.5 L 86.5 L ABG HCO3 ABG Hemoglobin Oxyhemoglobin Sodium Potassium Chloride Carbon Dioxide BUN Creatinine Glucose POC Glucose Lactic Acid Calcium Ferritin AST Magnesium Lactate Dehydrogenase ALT C-Reactive Protein Total Protein Albumin Hrtve-7-Inyvastmz Dvplq-7-Ckuthsmlf PEP Interpretation Triglycerides TSH CHICA Screen Complement C4 Coronavirus (PCR) 01/13/20 01/13/20 01/13/20 05:10 05:54 12:07 WBC RBC Hgb Hct MCV MCH RDW Plt Count Lymph % (Auto) [place]ran % (Auto) Cochran # Cochran # (Auto) Seg Neutrophils % Seg Neuts % (Manual) Lymphocytes % (Manual) Seg Neutrophils # Seg Neutrophils # Man Lymphocytes # (Manual) D-Dimer ABG pH POC ABG pCO2 POC ABG pO2 ABG pO2 ABG O2 Saturation ABG Base Excess ABG Oxyhemoglobin ABG HCO3 ABG Hemoglobin Oxyhemoglobin Sodium Potassium Chloride Carbon Dioxide BUN Creatinine Glucose POC Glucose 356 H 309 H Lactic Acid Calcium Ferritin AST Magnesium Lactate Dehydrogenase 999 H ALT C-Reactive Protein Total Protein Albumin Mcfpc-7-Fcrnekdaz Pgqra-0-Cfucgdqcm PEP Interpretation Triglycerides TSH CHICA Screen Complement C4 Coronavirus (PCR) 01/13/20 01/13/20 01/13/20 12:54 18:46 18:50 WBC 14.0 H RBC Hgb Hct MCV 76 L MCH 25 L RDW 15.8 H Plt Count 113 L Lymph % (Auto) Co[place]ran % (Auto) Cochran # Cochran # (Auto) Seg Neutrophils % Seg Neuts % (Manual) 88.0 H Lymphocytes % (Manual) 2.0 L Seg Neutrophils # Seg Neutrophils # Man 12.3 H Lymphocytes # (Manual) 0.3 L D-Dimer ABG pH 7.290 L POC ABG pCO2 POC ABG pO2 ABG pO2 60.2 L ABG O2 Saturation 88.6 L ABG Base Excess -2.7 L ABG Oxyhemoglobin ABG HCO3 ABG Hemoglobin Oxyhemoglobin 87.1 L Sodium Potassium Chloride Carbon Dioxide BUN Creatinine Glucose POC Glucose 268 H Lactic Acid Calcium Ferritin AST Magnesium Lactate Dehydrogenase ALT C-Reactive Protein Total Protein Albumin Xxabd-1-Kuwwqedqd Ozyow-9-Qmucizrsr PEP Interpretation Triglycerides TSH CHICA Screen Complement C4 Coronavirus (PCR) 01/13/20 01/14/20 01/14/20 23:53 00:31 03:13 WBC RBC Hgb Hct MCV MCH RDW Plt Count Lymph % (Auto) Cochran % (Auto) Cochran # Cochran # (Auto) Seg Neutrophils % Seg Neuts % (Manual) Lymphocytes % (Manual) Seg Neutrophils # Seg Neutrophils # Man Lymphocytes # (Manual) D-Dimer ABG pH POC ABG pCO2 POC ABG pO2 ABG pO2 132.6 H ABG O2 Saturation ABG Base Excess -2.7 L ABG Oxyhemoglobin ABG HCO3 ABG Hemoglobin Oxyhemoglobin Sodium Potassium 5.3 H Chloride Carbon Dioxide BUN 55 H Creatinine 1.6 H Glucose 268 H POC Glucose 259 H Lactic Acid Calcium Ferritin AST 46 H Magnesium Lactate Dehydrogenase ALT C-Reactive Protein Total Protein 6.1 L Albumin 3.1 L Whzlv-5-Dcyzuovtr Orqdm-0-Quwbaksaq PEP Interpretation Triglycerides TSH CHICA Screen Complement C4 Coronavirus (PCR) 01/14/20 01/14/20 01/14/20 05:23 06:06 09:47 WBC RBC Hgb Hct MCV MCH RDW Plt Count Lymph % (Auto) Cochran % (Auto) Cochran # Cochran # (Auto) Seg Neutrophils % Seg Neuts % (Manual) Lymphocytes % (Manual) Seg Neutrophils # Seg Neutrophils # Man Lymphocytes # (Manual) D-Dimer > 48661 H ABG pH POC ABG pCO2 POC ABG pO2 ABG pO2 ABG O2 Saturation ABG Base Excess ABG Oxyhemoglobin ABG HCO3 ABG Hemoglobin Oxyhemoglobin Sodium Potassium 5.5 H Chloride 107.6 H Carbon Dioxide 21 L BUN 58 H Creatinine 1.7 H Glucose 231 H POC Glucose 231 H Lactic Acid Calcium Ferritin AST Magnesium Lactate Dehydrogenase ALT C-Reactive Protein Total Protein Albumin Lqzaq-8-Zkakawoxw Nkeho-9-Bwwmyzueu PEP Interpretation Triglycerides TSH CHICA Screen Complement C4 Coronavirus (PCR) 01/14/20 01/14/20 01/14/20 09:47 12:20 16:00 WBC RBC Hgb Hct MCV MCH RDW Plt Count Lymph % (Auto) Cochran % (Auto) Cochran # Cochran # (Auto) Seg Neutrophils % Seg Neuts % (Manual) Lymphocytes % (Manual) Seg Neutrophils # Seg Neutrophils # Man Lymphocytes # (Manual) D-Dimer ABG pH POC ABG pCO2 POC ABG pO2 ABG pO2 69.3 L ABG O2 Saturation 94.4 L ABG Base Excess ABG Oxyhemoglobin ABG HCO3 ABG Hemoglobin Oxyhemoglobin 92.7 L Sodium Potassium Chloride 107.2 H Carbon Dioxide 21 L BUN 63 H Creatinine 1.5 H Glucose 217 H POC Glucose 238 H Lactic Acid Calcium Ferritin AST Magnesium Lactate Dehydrogenase ALT C-Reactive Protein Total Protein 6.0 L Albumin 2.7 L Fptiv-7-Nibgrwcha Edsdu-7-Ovfqyrncv PEP Interpretation Triglycerides TSH CHICA Screen Complement C4 Coronavirus (PCR) 01/14/20 01/14/20 01/14/20 18:24 19:01 23:50 WBC RBC Hgb Hct MCV MCH RDW Plt Count Lymph % (Auto) [place]ran % (Auto) Cochran # Cochran # (Auto) Seg Neutrophils % Seg Neuts % (Manual) Lymphocytes % (Manual) Seg Neutrophils # Seg Neutrophils # Man Lymphocytes # (Manual) D-Dimer ABG pH POC ABG pCO2 POC ABG pO2 ABG pO2 ABG O2 Saturation ABG Base Excess ABG Oxyhemoglobin ABG HCO3 ABG Hemoglobin Oxyhemoglobin Sodium 146 H Potassium 5.9 H Chloride 108.0 H Carbon Dioxide 20 L BUN 61 H Creatinine 1.4 H Glucose 254 H POC Glucose 228 H 321 H Lactic Acid Calcium Ferritin AST Magnesium Lactate Dehydrogenase ALT C-Reactive Protein Total Protein Albumin Mwqoi-1-Rzqlyehig Bjcpm-1-Amwdoczob PEP Interpretation Triglycerides TSH CHICA Screen Complement C4 Coronavirus (PCR) 01/14/20 01/14/20 01/14/20 Unknown Unknown Unknown WBC RBC Hgb Hct MCV MCH RDW Plt Count Lymph % (Auto) [place]ran % (Auto) Cochran # Cochran # (Auto) Seg Neutrophils % Seg Neuts % (Manual) Lymphocytes % (Manual) Seg Neutrophils # Seg Neutrophils # Man Lymphocytes # (Manual) D-Dimer ABG pH POC ABG pCO2 POC ABG pO2 ABG pO2 ABG O2 Saturation ABG Base Excess ABG Oxyhemoglobin ABG HCO3 ABG Hemoglobin Oxyhemoglobin Sodium Potassium Chloride Carbon Dioxide BUN Creatinine Glucose POC Glucose Lactic Acid Calcium Ferritin AST Magnesium Lactate Dehydrogenase ALT C-Reactive Protein Total Protein Albumin 2.8 L Wjsqb-4-Qcmmnzsev 0.6 H Jadcg-8-Putampnzj 1.1 H PEP Interpretation see below H Triglycerides TSH CHICA Screen Positive H Complement C4 76 H Coronavirus (PCR) 01/15/20 01/15/20 01/15/20 03:37 03:57 03:57 WBC 14.9 H RBC Hgb Hct MCV 75 L MCH 25 L RDW 15.4 H Plt Count Lymph % (Auto) 8.6 L Cochran % (Auto) Cochran # 1.0 H Cochran # (Auto) Seg Neutrophils % 84.2 H Seg Neuts % (Manual) Lymphocytes % (Manual) Seg Neutrophils # 12.5 H Seg Neutrophils # Man Lymphocytes # (Manual) D-Dimer ABG pH 7.480 H POC ABG pCO2 POC ABG pO2 76.7 L ABG pO2 ABG O2 Saturation ABG Base Excess ABG Oxyhemoglobin ABG HCO3 ABG Hemoglobin Oxyhemoglobin Sodium 152 H Potassium Chloride 113.0 H Carbon Dioxide BUN 52 H Creatinine Glucose 288 H POC Glucose Lactic Acid Calcium Ferritin AST Magnesium Lactate Dehydrogenase ALT C-Reactive Protein Total Protein Albumin Yvepb-7-Dheskaoox Vtmsp-6-Xdjyjkjak PEP Interpretation Triglycerides TSH CHICA Screen Complement C4 Coronavirus (PCR) 01/15/20 01/15/20 01/15/20 05:50 11:56 14:35 WBC RBC Hgb Hct MCV MCH RDW Plt Count Lymph % (Auto) Co[place]ran % (Auto) Cochran # Cochran # (Auto) Seg Neutrophils % Seg Neuts % (Manual) Lymphocytes % (Manual) Seg Neutrophils # Seg Neutrophils # Man Lymphocytes # (Manual) D-Dimer ABG pH POC ABG pCO2 POC ABG pO2 ABG pO2 ABG O2 Saturation ABG Base Excess ABG Oxyhemoglobin ABG HCO3 ABG Hemoglobin Oxyhemoglobin Sodium Potassium Chloride Carbon Dioxide BUN Creatinine Glucose POC Glucose 259 H 162 H Lactic Acid Calcium Ferritin 332.4 H AST Magnesium Lactate Dehydrogenase ALT C-Reactive Protein Total Protein Albumin Kihyg-1-Lefijgaab Uuhmr-1-Qcqvlbghn PEP Interpretation Triglycerides TSH CHICA Screen Complement C4 Coronavirus (PCR) 01/15/20 01/15/20 01/15/20 14:35 14:35 14:35 WBC RBC Hgb Hct MCV MCH RDW Plt Count Lymph % (Auto) Cochran % (Auto) Cochran # Cochran # (Auto) Seg Neutrophils % Seg Neuts % (Manual) Lymphocytes % (Manual) Seg Neutrophils # Seg Neutrophils # Man Lymphocytes # (Manual) D-Dimer ABG pH POC ABG pCO2 POC ABG pO2 ABG pO2 ABG O2 Saturation ABG Base Excess ABG Oxyhemoglobin ABG HCO3 ABG Hemoglobin Oxyhemoglobin Sodium Potassium Chloride Carbon Dioxide BUN Creatinine Glucose POC Glucose Lactic Acid Calcium Ferritin AST Magnesium 3.00 H Lactate Dehydrogenase 747 H ALT C-Reactive Protein 7.60 H Total Protein Albumin Gmrjb-9-Mkxvadxhi Aiija-5-Owrxubews PEP Interpretation Triglycerides TSH 0.221 L CHICA Screen Complement C4 Coronavirus (PCR) 01/15/20 01/15/20 01/15/20 16:18 17:31 23:26 WBC RBC Hgb Hct MCV MCH RDW Plt Count Lymph % (Auto) Co[place]ran % (Auto) Cochran # Cochran # (Auto) Seg Neutrophils % Seg Neuts % (Manual) Lymphocytes % (Manual) Seg Neutrophils # Seg Neutrophils # Man Lymphocytes # (Manual) D-Dimer ABG pH 7.510 H POC ABG pCO2 POC ABG pO2 76.6 L ABG pO2 ABG O2 Saturation ABG Base Excess ABG Oxyhemoglobin ABG HCO3 ABG Hemoglobin Oxyhemoglobin Sodium Potassium Chloride Carbon Dioxide BUN Creatinine Glucose POC Glucose 239 H 226 H Lactic Acid Calcium Ferritin AST Magnesium Lactate Dehydrogenase ALT C-Reactive Protein Total Protein Albumin Rkmdk-5-Shntrkepv Tuqia-1-Wycwrkxbo PEP Interpretation Triglycerides TSH CHICA Screen Complement C4 Coronavirus (PCR) 01/16/20 01/16/20 01/16/20 03:33 04:00 04:00 WBC 13.6 H RBC Hgb Hct MCV 74 L MCH 25 L RDW 15.4 H Plt Count Lymph % (Auto) Co[place]ran % (Auto) Cochran # Cochran # (Auto) Seg Neutrophils % Seg Neuts % (Manual) 91.0 H Lymphocytes % (Manual) 5.0 L Seg Neutrophils # Seg Neutrophils # Man 12.4 H Lymphocytes # (Manual) 0.7 L D-Dimer ABG pH 7.477 H POC ABG pCO2 POC ABG pO2 ABG pO2 ABG O2 Saturation ABG Base Excess ABG Oxyhemoglobin ABG HCO3 ABG Hemoglobin Oxyhemoglobin Sodium 151 H Potassium Chloride 113.8 H Carbon Dioxide BUN 45 H Creatinine Glucose 213 H POC Glucose Lactic Acid Calcium Ferritin AST Magnesium Lactate Dehydrogenase ALT C-Reactive Protein Total Protein Albumin Hpsxm-7-Bkyywpoeg Uygmp-6-Jhjqgnczi PEP Interpretation Triglycerides TSH CHICA Screen Complement C4 Coronavirus (PCR) 01/16/20 01/16/20 01/16/20 05:45 12:02 17:27 WBC RBC Hgb Hct MCV MCH RDW Plt Count Lymph % (Auto) [place]ran % (Auto) Cochran # Cochran # (Auto) Seg Neutrophils % Seg Neuts % (Manual) Lymphocytes % (Manual) Seg Neutrophils # Seg Neutrophils # Man Lymphocytes # (Manual) D-Dimer ABG pH POC ABG pCO2 POC ABG pO2 ABG pO2 ABG O2 Saturation ABG Base Excess ABG Oxyhemoglobin ABG HCO3 ABG Hemoglobin Oxyhemoglobin Sodium Potassium Chloride Carbon Dioxide BUN Creatinine Glucose POC Glucose 202 H 186 H 240 H Lactic Acid Calcium Ferritin AST Magnesium Lactate Dehydrogenase ALT C-Reactive Protein Total Protein Albumin Eslot-2-Izvfpvnui Fdbrq-2-Kahvvskxr PEP Interpretation Triglycerides TSH CHICA Screen Complement C4 Coronavirus (PCR) 01/17/20 01/17/20 01/17/20 00:07 04:50 05:46 WBC RBC Hgb Hct MCV MCH RDW Plt Count Lymph % (Auto) [place]ran % (Auto) Cochran # Cochran # (Auto) Seg Neutrophils % Seg Neuts % (Manual) Lymphocytes % (Manual) Seg Neutrophils # Seg Neutrophils # Man Lymphocytes # (Manual) D-Dimer ABG pH 7.494 H POC ABG pCO2 POC ABG pO2 ABG pO2 73.4 L ABG O2 Saturation ABG Base Excess ABG Oxyhemoglobin ABG HCO3 ABG Hemoglobin Oxyhemoglobin 94.4 L Sodium Potassium Chloride Carbon Dioxide BUN Creatinine Glucose POC Glucose 207 H 170 H Lactic Acid Calcium Ferritin AST Magnesium Lactate Dehydrogenase ALT C-Reactive Protein Total Protein Albumin Bijrf-0-Qbfjpzcqi Dixjs-9-Pyybdinaa PEP Interpretation Triglycerides TSH CHICA Screen Complement C4 Coronavirus (PCR) 01/17/20 01/17/20 01/17/20 06:00 06:00 11:32 WBC 11.5 H RBC Hgb Hct MCV 75 L MCH 25 L RDW 15.5 H Plt Count Lymph % (Auto) [place]ran % (Auto) Cochran # Cochran # (Auto) Seg Neutrophils % Seg Neuts % (Manual) 81.0 H Lymphocytes % (Manual) 10.0 L Seg Neutrophils # Seg Neutrophils # Man 9.3 H Lymphocytes # (Manual) D-Dimer ABG pH POC ABG pCO2 POC ABG pO2 ABG pO2 ABG O2 Saturation ABG Base Excess ABG Oxyhemoglobin ABG HCO3 ABG Hemoglobin Oxyhemoglobin Sodium 151 H Potassium Chloride 113.6 H Carbon Dioxide BUN 40 H Creatinine Glucose 149 H POC Glucose 229 H Lactic Acid Calcium Ferritin AST Magnesium Lactate Dehydrogenase ALT C-Reactive Protein Total Protein Albumin Xbuya-9-Maxhswyed Rnsdr-7-Szbkoinck PEP Interpretation Triglycerides TSH CHICA Screen Complement C4 Coronavirus (PCR) 01/17/20 01/17/20 01/17/20 13:40 13:40 13:40 WBC RBC Hgb Hct MCV MCH RDW Plt Count Lymph % (Auto) [place]ran % (Auto) Cochran # Cochran # (Auto) Seg Neutrophils % Seg Neuts % (Manual) Lymphocytes % (Manual) Seg Neutrophils # Seg Neutrophils # Man Lymphocytes # (Manual) D-Dimer 1878.79 H ABG pH POC ABG pCO2 POC ABG pO2 ABG pO2 ABG O2 Saturation ABG Base Excess ABG Oxyhemoglobin ABG HCO3 ABG Hemoglobin Oxyhemoglobin Sodium Potassium Chloride Carbon Dioxide BUN Creatinine Glucose POC Glucose Lactic Acid Calcium Ferritin 322.8 H AST Magnesium Lactate Dehydrogenase 587 H ALT C-Reactive Protein 4.60 H Total Protein Albumin Ycljk-6-Vtfhyneef Cepao-4-Lospwepcu PEP Interpretation Triglycerides TSH CHICA Screen Complement C4 Coronavirus (PCR) 01/17/20 01/17/20 01/17/20 17:45 21:30 23:53 WBC RBC Hgb Hct MCV MCH RDW Plt Count Lymph % (Auto) [place]ran % (Auto) Cochran # Cochran # (Auto) Seg Neutrophils % Seg Neuts % (Manual) Lymphocytes % (Manual) Seg Neutrophils # Seg Neutrophils # Man Lymphocytes # (Manual) D-Dimer ABG pH POC ABG pCO2 POC ABG pO2 ABG pO2 179.6 H ABG O2 Saturation 99.2 H ABG Base Excess ABG Oxyhemoglobin ABG HCO3 ABG Hemoglobin 11.8 L Oxyhemoglobin Sodium Potassium Chloride Carbon Dioxide BUN Creatinine Glucose POC Glucose 364 H 272 H Lactic Acid Calcium Ferritin AST Magnesium Lactate Dehydrogenase ALT C-Reactive Protein Total Protein Albumin Ltwjj-0-Vjzinrayj Onttw-7-Gfkpjgsld PEP Interpretation Triglycerides TSH CHICA Screen Complement C4 Coronavirus (PCR) 01/18/20 01/18/20 01/18/20 03:40 04:00 05:00 WBC RBC Hgb Hct MCV MCH RDW Plt Count Lymph % (Auto) [place]ran % (Auto) Cochran # Cochran # (Auto) Seg Neutrophils % Seg Neuts % (Manual) Lymphocytes % (Manual) Seg Neutrophils # Seg Neutrophils # Man Lymphocytes # (Manual) D-Dimer ABG pH POC ABG pCO2 POC ABG pO2 ABG pO2 162.6 H ABG O2 Saturation ABG Base Excess ABG Oxyhemoglobin ABG HCO3 ABG Hemoglobin Oxyhemoglobin Sodium 150 H Potassium Chloride 113.4 H Carbon Dioxide BUN 44 H Creatinine Glucose 268 H POC Glucose Lactic Acid Calcium Ferritin AST Magnesium Lactate Dehydrogenase ALT C-Reactive Protein Total Protein Albumin Fcuat-5-Vksmjqduj Hfwjq-1-Zbitmtabl PEP Interpretation Triglycerides 198 H TSH CHICA Screen Complement C4 Coronavirus (PCR) 01/18/20 01/18/20 01/18/20 05:54 11:21 17:27 WBC RBC Hgb Hct MCV MCH RDW Plt Count Lymph % (Auto) [place]ran % (Auto) Cochran # Cochran # (Auto) Seg Neutrophils % Seg Neuts % (Manual) Lymphocytes % (Manual) Seg Neutrophils # Seg Neutrophils # Man Lymphocytes # (Manual) D-Dimer ABG pH POC ABG pCO2 POC ABG pO2 ABG pO2 ABG O2 Saturation ABG Base Excess ABG Oxyhemoglobin ABG HCO3 ABG Hemoglobin Oxyhemoglobin Sodium Potassium Chloride Carbon Dioxide BUN Creatinine Glucose POC Glucose 271 H 244 H 232 H Lactic Acid Calcium Ferritin AST Magnesium Lactate Dehydrogenase ALT C-Reactive Protein Total Protein Albumin Aeboi-4-Nmcxzqfzs Cbifb-7-Beshzagfe PEP Interpretation Triglycerides TSH CHICA Screen Complement C4 Coronavirus (PCR) 01/19/20 01/19/20 01/19/20 00:12 04:00 04:40 WBC RBC Hgb Hct MCV MCH RDW Plt Count Lymph % (Auto) [place]ran % (Auto) Cochran # Cochran # (Auto) Seg Neutrophils % Seg Neuts % (Manual) Lymphocytes % (Manual) Seg Neutrophils # Seg Neutrophils # Man Lymphocytes # (Manual) D-Dimer ABG pH POC ABG pCO2 POC ABG pO2 ABG pO2 117.2 H ABG O2 Saturation ABG Base Excess ABG Oxyhemoglobin ABG HCO3 ABG Hemoglobin 9.7 L Oxyhemoglobin Sodium 146 H Potassium Chloride 111.3 H Carbon Dioxide BUN 38 H Creatinine Glucose 168 H POC Glucose 143 H Lactic Acid Calcium Ferritin AST Magnesium Lactate Dehydrogenase ALT C-Reactive Protein Total Protein Albumin Lqrcf-7-Jisgjyufd Xqvrg-8-Pswxwnzvq PEP Interpretation Triglycerides TSH CHICA Screen Complement C4 Coronavirus (PCR) 01/19/20 01/19/20 01/19/20 05:41 12:02 18:13 WBC RBC Hgb Hct MCV MCH RDW Plt Count Lymph % (Auto) [place]ran % (Auto) Cochran # Cochran # (Auto) Seg Neutrophils % Seg Neuts % (Manual) Lymphocytes % (Manual) Seg Neutrophils # Seg Neutrophils # Man Lymphocytes # (Manual) D-Dimer ABG pH POC ABG pCO2 POC ABG pO2 ABG pO2 ABG O2 Saturation ABG Base Excess ABG Oxyhemoglobin ABG HCO3 ABG Hemoglobin Oxyhemoglobin Sodium Potassium Chloride Carbon Dioxide BUN Creatinine Glucose POC Glucose 171 H 208 H 272 H Lactic Acid Calcium Ferritin AST Magnesium Lactate Dehydrogenase ALT C-Reactive Protein Total Protein Albumin Omxdu-4-Ytrkbkvlj Rthtj-9-Wdtbwosdc PEP Interpretation Triglycerides TSH CHICA Screen Complement C4 Coronavirus (PCR) 01/20/20 01/20/20 01/20/20 00:13 04:21 05:30 WBC RBC Hgb Hct MCV MCH RDW Plt Count Lymph % (Auto) Co[place]ran % (Auto) Cochran # Cochran # (Auto) Seg Neutrophils % Seg Neuts % (Manual) Lymphocytes % (Manual) Seg Neutrophils # Seg Neutrophils # Man Lymphocytes # (Manual) D-Dimer ABG pH POC ABG pCO2 POC ABG pO2 ABG pO2 ABG O2 Saturation ABG Base Excess ABG Oxyhemoglobin ABG HCO3 26.8 H ABG Hemoglobin 10.7 L Oxyhemoglobin 94.3 L Sodium Potassium Chloride Carbon Dioxide BUN Creatinine Glucose POC Glucose 223 H 129 H Lactic Acid Calcium Ferritin AST Magnesium Lactate Dehydrogenase ALT C-Reactive Protein Total Protein Albumin [id number] Rhwwh-0-Gmhfxdcpu PEP Interpretation Triglycerides TSH CHICA Screen Complement C4 Coronavirus (PCR) 01/20/20 01/20/20 01/20/20 11:14 11:14 11:14 WBC RBC Hgb Hct MCV MCH RDW Plt Count Lymph % (Auto) Cochran % (Auto) Cochran # Cochran # (Auto) Seg Neutrophils % Seg Neuts % (Manual) Lymphocytes % (Manual) Seg Neutrophils # Seg Neutrophils # Man Lymphocytes # (Manual) D-Dimer 1221.96 H ABG pH POC ABG pCO2 POC ABG pO2 ABG pO2 ABG O2 Saturation ABG Base Excess ABG Oxyhemoglobin ABG HCO3 ABG Hemoglobin Oxyhemoglobin Sodium Potassium Chloride Carbon Dioxide BUN Creatinine Glucose POC Glucose Lactic Acid Calcium Ferritin 364.6 H AST Magnesium Lactate Dehydrogenase 403 H ALT C-Reactive Protein 5.10 H Total Protein Albumin Coftu-1-Svfpmyrth Hoswc-2-Gyyqzhhne PEP Interpretation Triglycerides TSH CHICA Screen Complement C4 Coronavirus (PCR) 01/20/20 01/20/20 01/20/20 12:01 18:10 23:07 WBC RBC Hgb Hct MCV MCH RDW Plt Count Lymph % (Auto) Cochran % (Auto) Cochran # Cochran # (Auto) Seg Neutrophils % Seg Neuts % (Manual) Lymphocytes % (Manual) Seg Neutrophils # Seg Neutrophils # Man Lymphocytes # (Manual) D-Dimer ABG pH POC ABG pCO2 POC ABG pO2 ABG pO2 ABG O2 Saturation ABG Base Excess ABG Oxyhemoglobin ABG HCO3 ABG Hemoglobin Oxyhemoglobin Sodium Potassium Chloride Carbon Dioxide BUN Creatinine Glucose POC Glucose 260 H 317 H 237 H Lactic Acid Calcium Ferritin AST Magnesium Lactate Dehydrogenase ALT C-Reactive Protein Total Protein Albumin Nwost-8-Sybebyaff Znlgi-1-Wydyhverw PEP Interpretation Triglycerides TSH CHICA Screen Complement C4 Coronavirus (PCR) 01/21/20 01/21/20 01/21/20 05:25 05:25 05:42 WBC 11.3 H RBC Hgb 9.1 L Hct 28.9 L MCV 77 L MCH 24 L RDW Plt Count Lymph % (Auto) Cochran % (Auto) Cochran # Cochran # (Auto) Seg Neutrophils % Seg Neuts % (Manual) Lymphocytes % (Manual) Seg Neutrophils # Seg Neutrophils # Man Lymphocytes # (Manual) D-Dimer ABG pH POC ABG pCO2 POC ABG pO2 ABG pO2 ABG O2 Saturation ABG Base Excess ABG Oxyhemoglobin ABG HCO3 ABG Hemoglobin Oxyhemoglobin Sodium 147 H Potassium Chloride 111.0 H Carbon Dioxide 31 H D BUN 20 H Creatinine Glucose 103 H POC Glucose 110 H Lactic Acid Calcium 8.2 L Ferritin AST Magnesium Lactate Dehydrogenase ALT C-Reactive Protein Total Protein Albumin Sroai-5-Nltjjdiab Aaceh-9-Ehutrytlj PEP Interpretation Triglycerides TSH CHICA Screen Complement C4 Coronavirus (PCR) 01/21/20 01/21/20 01/21/20 11:49 18:41 21:53 WBC RBC Hgb Hct MCV MCH RDW Plt Count Lymph % (Auto) Cochran % (Auto) Cochran # Cochran # (Auto) Seg Neutrophils % Seg Neuts % (Manual) Lymphocytes % (Manual) Seg Neutrophils # Seg Neutrophils # Man Lymphocytes # (Manual) D-Dimer ABG pH POC ABG pCO2 POC ABG pO2 ABG pO2 ABG O2 Saturation ABG Base Excess ABG Oxyhemoglobin ABG HCO3 ABG Hemoglobin Oxyhemoglobin Sodium Potassium Chloride Carbon Dioxide BUN Creatinine Glucose POC Glucose 147 H 290 H 255 H Lactic Acid Calcium Ferritin AST Magnesium Lactate Dehydrogenase ALT C-Reactive Protein Total Protein Albumin Khusg-0-Qfrldmeoc Xthky-6-Ygtneupyf PEP Interpretation Triglycerides TSH CHICA Screen Complement C4 Coronavirus (PCR) 01/22/20 01/22/20 01/22/20 03:35 04:42 05:23 WBC RBC Hgb Hct MCV MCH RDW Plt Count Lymph % (Auto) Cochran % (Auto) Cochran # Cochran # (Auto) Seg Neutrophils % Seg Neuts % (Manual) Lymphocytes % (Manual) Seg Neutrophils # Seg Neutrophils # Man Lymphocytes # (Manual) D-Dimer ABG pH 7.46 H POC ABG pCO2 POC ABG pO2 ABG pO2 ABG O2 Saturation ABG Base Excess ABG Oxyhemoglobin ABG HCO3 ABG Hemoglobin 10.4 L Oxyhemoglobin Sodium 148 H Potassium 3.5 L Chloride 108.1 H Carbon Dioxide BUN 19 H Creatinine Glucose 159 H POC Glucose 173 H Lactic Acid Calcium 8.1 L Ferritin AST Magnesium Lactate Dehydrogenase ALT C-Reactive Protein Total Protein Albumin Zcgpc-2-Bszptbcjy Uatsy-7-Zzezeotvn PEP Interpretation Triglycerides TSH CHICA Screen Complement C4 Coronavirus (PCR) 01/22/20 01/22/20 01/22/20 12:41 17:46 23:06 WBC RBC Hgb Hct MCV MCH RDW Plt Count Lymph % (Auto) Cochran % (Auto) Cochran # Cochran # (Auto) Seg Neutrophils % Seg Neuts % (Manual) Lymphocytes % (Manual) Seg Neutrophils # Seg Neutrophils # Man Lymphocytes # (Manual) D-Dimer ABG pH POC ABG pCO2 POC ABG pO2 ABG pO2 ABG O2 Saturation ABG Base Excess ABG Oxyhemoglobin ABG HCO3 ABG Hemoglobin Oxyhemoglobin Sodium Potassium Chloride Carbon Dioxide BUN Creatinine Glucose POC Glucose 284 H 245 H 245 H Lactic Acid Calcium Ferritin AST Magnesium Lactate Dehydrogenase ALT C-Reactive Protein Total Protein Albumin Pcgqg-1-Cghflwavc Qidms-0-Foqiyarbh PEP Interpretation Triglycerides TSH CHICA Screen Complement C4 Coronavirus (PCR) 01/23/20 01/23/20 01/23/20 05:50 06:10 06:10 WBC RBC Hgb Hct MCV MCH RDW Plt Count Lymph % (Auto) Cochran % (Auto) Cochran # Cochran # (Auto) Seg Neutrophils % Seg Neuts % (Manual) Lymphocytes % (Manual) Seg Neutrophils # Seg Neutrophils # Man Lymphocytes # (Manual) D-Dimer 451.53 H ABG pH POC ABG pCO2 POC ABG pO2 ABG pO2 ABG O2 Saturation ABG Base Excess ABG Oxyhemoglobin ABG HCO3 ABG Hemoglobin Oxyhemoglobin Sodium Potassium Chloride 110.3 H Carbon Dioxide BUN 19 H Creatinine 0.5 L Glucose 178 H POC Glucose 184 H Lactic Acid Calcium 7.6 L Ferritin AST Magnesium Lactate Dehydrogenase ALT C-Reactive Protein 3.30 H Total Protein Albumin Yknmh-2-Kxolqfbeu Icjez-0-Okzzejzbq PEP Interpretation Triglycerides TSH CHICA Screen Complement C4 Coronavirus (PCR) 01/23/20 01/23/20 01/23/20 12:29 17:57 22:15 WBC 12.8 H RBC Hgb 9.7 L Hct MCV 77 L MCH 25 L RDW Plt Count Lymph % (Auto) Cochran % (Auto) 9.1 H Cochran # Cochran # (Auto) 1.2 H Seg Neutrophils % Seg Neuts % (Manual) Lymphocytes % (Manual) Seg Neutrophils # 8.6 H Seg Neutrophils # Man Lymphocytes # (Manual) D-Dimer ABG pH POC ABG pCO2 POC ABG pO2 ABG pO2 ABG O2 Saturation ABG Base Excess ABG Oxyhemoglobin ABG HCO3 ABG Hemoglobin Oxyhemoglobin Sodium Potassium Chloride Carbon Dioxide BUN Creatinine Glucose POC Glucose 258 H 248 H Lactic Acid Calcium Ferritin AST Magnesium Lactate Dehydrogenase ALT C-Reactive Protein Total Protein Albumin Eoexm-6-[place]ock Ayozu-2-Hblwhyfrl PEP Interpretation Triglycerides TSH CHICA Screen Complement C4 Coronavirus (PCR) 01/23/20 01/24/20 01/24/20 23:28 06:00 06:00 WBC 12.4 H RBC Hgb 9.3 L Hct 28.6 L MCV 77 L MCH 25 L RDW Plt Count Lymph % (Auto) Cochran % (Auto) 8.7 H Cochran # Cochran # (Auto) 1.1 H Seg Neutrophils % 71.2 H Seg Neuts % (Manual) Lymphocytes % (Manual) Seg Neutrophils # 8.8 H Seg Neutrophils # Man Lymphocytes # (Manual) D-Dimer ABG pH POC ABG pCO2 POC ABG pO2 ABG pO2 ABG O2 Saturation ABG Base Excess ABG Oxyhemoglobin ABG HCO3 ABG Hemoglobin Oxyhemoglobin Sodium Potassium 3.4 L Chloride 107.3 H Carbon Dioxide BUN Creatinine Glucose POC Glucose 200 H Lactic Acid Calcium Ferritin AST Magnesium Lactate Dehydrogenase ALT C-Reactive Protein Total Protein Albumin Tajxg-1-Ilaeleqke Cshnl-5-Kokfijyuw PEP Interpretation Triglycerides TSH CHICA Screen Complement C4 Coronavirus (PCR) 01/24/20 01/24/20 01/24/20 10:02 12:31 17:59 WBC RBC Hgb Hct MCV MCH RDW Plt Count Lymph % (Auto) Cochran % (Auto) Cochran # Cochran # (Auto) Seg Neutrophils % Seg Neuts % (Manual) Lymphocytes % (Manual) Seg Neutrophils # Seg Neutrophils # Man Lymphocytes # (Manual) D-Dimer ABG pH POC ABG pCO2 POC ABG pO2 ABG pO2 ABG O2 Saturation ABG Base Excess ABG Oxyhemoglobin ABG HCO3 ABG Hemoglobin Oxyhemoglobin Sodium Potassium Chloride Carbon Dioxide BUN Creatinine Glucose POC Glucose 161 H 252 H 182 H Lactic Acid Calcium Ferritin AST Magnesium Lactate Dehydrogenase ALT C-Reactive Protein Total Protein Albumin Kfbvz-2-Lscjokfmf Lzlam-6-Nbxsnviey PEP Interpretation Triglycerides TSH CHICA Screen Complement C4 Coronavirus (PCR) 01/25/20 01/25/20 01/25/20 00:21 05:43 12:01 WBC RBC Hgb Hct MCV MCH RDW Plt Count Lymph % (Auto) Cochran % (Auto) Cochran # Cochran # (Auto) Seg Neutrophils % Seg Neuts % (Manual) Lymphocytes % (Manual) Seg Neutrophils # Seg Neutrophils # Man Lymphocytes # (Manual) D-Dimer ABG pH POC ABG pCO2 POC ABG pO2 ABG pO2 ABG O2 Saturation ABG Base Excess ABG Oxyhemoglobin ABG HCO3 ABG Hemoglobin Oxyhemoglobin Sodium Potassium Chloride Carbon Dioxide BUN Creatinine Glucose POC Glucose 125 H 132 H 215 H Lactic Acid Calcium Ferritin AST Magnesium Lactate Dehydrogenase ALT C-Reactive Protein Total Protein Albumin Bflpt-3-Ckfhiqxib Abldp-2-Xrprharml PEP Interpretation Triglycerides TSH CHICA Screen Complement C4 Coronavirus (PCR) 01/25/20 01/26/20 01/26/20 18:23 00:20 04:43 WBC RBC Hgb Hct MCV MCH RDW Plt Count Lymph % (Auto) Cochran % (Auto) Cochran # Cochran # (Auto) Seg Neutrophils % Seg Neuts % (Manual) Lymphocytes % (Manual) Seg Neutrophils # Seg Neutrophils # Man Lymphocytes # (Manual) D-Dimer 864.61 H ABG pH POC ABG pCO2 POC ABG pO2 ABG pO2 ABG O2 Saturation ABG Base Excess ABG Oxyhemoglobin ABG HCO3 ABG Hemoglobin Oxyhemoglobin Sodium Potassium Chloride Carbon Dioxide BUN Creatinine Glucose POC Glucose 213 H 173 H Lactic Acid Calcium Ferritin AST Magnesium Lactate Dehydrogenase ALT C-Reactive Protein Total Protein Albumin Evhcx-6-Uyrrjqzbc Vqqxj-1-Rmxcusajx PEP Interpretation Triglycerides TSH CHICA Screen Complement C4 Coronavirus (PCR) 01/26/20 01/26/20 01/26/20 04:43 04:43 05:45 WBC RBC Hgb Hct MCV MCH RDW Plt Count Lymph % (Auto) Cochran % (Auto) Cochran # Cochran # (Auto) Seg Neutrophils % Seg Neuts % (Manual) Lymphocytes % (Manual) Seg Neutrophils # Seg Neutrophils # Man Lymphocytes # (Manual) D-Dimer ABG pH POC ABG pCO2 POC ABG pO2 ABG pO2 ABG O2 Saturation ABG Base Excess ABG Oxyhemoglobin ABG HCO3 ABG Hemoglobin Oxyhemoglobin Sodium Potassium Chloride Carbon Dioxide BUN Creatinine Glucose POC Glucose 131 H Lactic Acid Calcium Ferritin 267.6 H AST Magnesium Lactate Dehydrogenase 319 H ALT C-Reactive Protein 8.90 H Total Protein Albumin Kewkq-5-Hnolswlkw Heook-3-Vtvhysipj PEP Interpretation Triglycerides TSH CHICA Screen Complement C4 Coronavirus (PCR) 01/26/20 01/26/20 01/26/20 10:37 10:37 12:05 WBC RBC 3.51 L Hgb 8.8 L Hct 27.1 L MCV 77 L MCH 25 L RDW Plt Count Lymph % (Auto) Cochran % (Auto) 7.8 H Cochran # Cochran # (Auto) Seg Neutrophils % 74.0 H Seg Neuts % (Manual) Lymphocytes % (Manual) Seg Neutrophils # 8.0 H Seg Neutrophils # Man Lymphocytes # (Manual) D-Dimer ABG pH POC ABG pCO2 POC ABG pO2 ABG pO2 ABG O2 Saturation ABG Base Excess ABG Oxyhemoglobin ABG HCO3 ABG Hemoglobin Oxyhemoglobin Sodium Potassium 3.5 L Chloride Carbon Dioxide BUN Creatinine Glucose 124 H POC Glucose 137 H Lactic Acid Calcium Ferritin AST 49 H Magnesium Lactate Dehydrogenase ALT 81 H C-Reactive Protein Total Protein 5.6 L Albumin 2.6 L Qpwtx-8-Venwhuonw Njysp-5-Tbtiichmm PEP Interpretation Triglycerides TSH CHICA Screen Complement C4 Coronavirus (PCR) 01/26/20 01/26/20 01/27/20 16:50 23:22 05:37 WBC RBC Hgb Hct MCV MCH RDW Plt Count Lymph % (Auto) Cochran % (Auto) Cochran # Cochran # (Auto) Seg Neutrophils % Seg Neuts % (Manual) Lymphocytes % (Manual) Seg Neutrophils # Seg Neutrophils # Man Lymphocytes # (Manual) D-Dimer ABG pH POC ABG pCO2 POC ABG pO2 ABG pO2 ABG O2 Saturation ABG Base Excess ABG Oxyhemoglobin ABG HCO3 ABG Hemoglobin Oxyhemoglobin Sodium Potassium Chloride Carbon Dioxide BUN Creatinine Glucose POC Glucose 145 H 200 H 168 H Lactic Acid Calcium Ferritin AST Magnesium Lactate Dehydrogenase ALT C-Reactive Protein Total Protein Albumin Mnasu-7-Bnckunxrb Gkjgf-6-Usahlcrdy PEP Interpretation Triglycerides TSH CHICA Screen Complement C4 Coronavirus (PCR) 01/27/20 01/27/20 01/27/20 11:36 17:06 22:28 WBC RBC Hgb Hct MCV MCH RDW Plt Count Lymph % (Auto) Cochran % (Auto) Cochran # Cochran # (Auto) Seg Neutrophils % Seg Neuts % (Manual) Lymphocytes % (Manual) Seg Neutrophils # Seg Neutrophils # Man Lymphocytes # (Manual) D-Dimer ABG pH POC ABG pCO2 POC ABG pO2 ABG pO2 ABG O2 Saturation ABG Base Excess ABG Oxyhemoglobin ABG HCO3 ABG Hemoglobin Oxyhemoglobin Sodium Potassium Chloride Carbon Dioxide BUN Creatinine Glucose POC Glucose 210 H 174 H 169 H Lactic Acid Calcium Ferritin AST Magnesium Lactate Dehydrogenase ALT C-Reactive Protein Total Protein Albumin Pqtea-8-Mxcoqgqhw Rxstp-6-Vxqykcmjg PEP Interpretation Triglycerides TSH CHICA Screen Complement C4 Coronavirus (PCR) 01/28/20 01/28/20 01/28/20 05:46 11:44 16:59 WBC RBC Hgb Hct MCV MCH RDW Plt Count Lymph % (Auto) Cochran % (Auto) Cochran # Cochran # (Auto) Seg Neutrophils % Seg Neuts % (Manual) Lymphocytes % (Manual) Seg Neutrophils # Seg Neutrophils # Man Lymphocytes # (Manual) D-Dimer ABG pH POC ABG pCO2 POC ABG pO2 ABG pO2 ABG O2 Saturation ABG Base Excess ABG Oxyhemoglobin ABG HCO3 ABG Hemoglobin Oxyhemoglobin Sodium Potassium Chloride Carbon Dioxide BUN Creatinine Glucose POC Glucose 149 H 192 H 163 H Lactic Acid Calcium Ferritin AST Magnesium Lactate Dehydrogenase ALT C-Reactive Protein Total Protein Albumin Zwiax-0-Opsvkbcwg Ileee-1-Bhcctbymu PEP Interpretation Triglycerides TSH CHICA Screen Complement C4 Coronavirus (PCR) 01/29/20 01/29/20 01/29/20 03:22 05:13 07:32 WBC RBC Hgb Hct MCV MCH RDW Plt Count Lymph % (Auto) Cochran % (Auto) Cochran # Cochran # (Auto) Seg Neutrophils % Seg Neuts % (Manual) Lymphocytes % (Manual) Seg Neutrophils # Seg Neutrophils # Man Lymphocytes # (Manual) D-Dimer 1505.14 H ABG pH POC ABG pCO2 POC ABG pO2 ABG pO2 ABG O2 Saturation ABG Base Excess ABG Oxyhemoglobin ABG HCO3 ABG Hemoglobin Oxyhemoglobin Sodium Potassium Chloride Carbon Dioxide BUN Creatinine Glucose POC Glucose 116 H 140 H Lactic Acid Calcium Ferritin AST Magnesium Lactate Dehydrogenase ALT C-Reactive Protein Total Protein Albumin Dfbgn-7-Iykplhejd Sgiol-8-Avldbvwdh PEP Interpretation Triglycerides TSH CHICA Screen Complement C4 Coronavirus (PCR) 01/29/20 01/29/20 01/29/20 07:32 07:32 07:32 WBC RBC 3.55 L Hgb 8.9 L Hct 26.9 L MCV 76 L MCH 25 L RDW Plt Count Lymph % (Auto) Cochran % (Auto) Cochran # Cochran # (Auto) Seg Neutrophils % 70.4 H Seg Neuts % (Manual) Lymphocytes % (Manual) Seg Neutrophils # Seg Neutrophils # Man Lymphocytes # (Manual) D-Dimer ABG pH POC ABG pCO2 POC ABG pO2 ABG pO2 ABG O2 Saturation ABG Base Excess ABG Oxyhemoglobin ABG HCO3 ABG Hemoglobin Oxyhemoglobin Sodium Potassium Chloride Carbon Dioxide 31 H BUN Creatinine Glucose 160 H POC Glucose Lactic Acid Calcium Ferritin AST Magnesium Lactate Dehydrogenase ALT 65 H C-Reactive Protein 6.20 H Total Protein 6.0 L Albumin 3.0 L Hxphk-6-Numcqzarl Hweqy-3-Zhvyukfbz PEP Interpretation Triglycerides TSH CHICA Screen Complement C4 Coronavirus (PCR) 01/29/20 01/29/20 12:03 17:29 WBC RBC Hgb Hct MCV MCH RDW Plt Count Lymph % (Auto) Cochran % (Auto) Cochran # Cochran # (Auto) Seg Neutrophils % Seg Neuts % (Manual) Lymphocytes % (Manual) Seg Neutrophils # Seg Neutrophils # Man Lymphocytes # (Manual) D-Dimer ABG pH POC ABG pCO2 POC ABG pO2 ABG pO2 ABG O2 Saturation ABG Base Excess ABG Oxyhemoglobin ABG HCO3 ABG Hemoglobin Oxyhemoglobin Sodium Potassium Chloride Carbon Dioxide BUN Creatinine Glucose POC Glucose 216 H 178 H Lactic Acid Calcium Ferritin AST Magnesium Lactate Dehydrogenase ALT C-Reactive Protein Total Protein Albumin Havqo-8-Xvywcnnjp Gwwvw-6-Geawbzbsg PEP Interpretation Triglycerides TSH CHICA Screen Complement C4 Coronavirus (PCR) Allied health notes reviewed: RT
[2020-01-30] MEDS: INSULIN LISPRO 100 UNIT/ML VIAL 3 mL SUB-Q SCH ×6 (03:10→18:09)
[2020-01-30] MEDS: hydrALAZINE 25 MG TAB PO SCH ×3 (05:10→23:51)
[2020-01-30] MEDS: ACETAMINOPHEN 325 MG TAB PO PRN (05:20)
[2020-01-30] MEDS: QUEtiapine 200 MG TAB PO SCH ×2 (10:57→23:52)
[2020-01-30] MEDS: FAMOTIDINE 20 MG TAB PO SCH ×2 (10:58→23:50)
[2020-01-30] MEDS: clonazePAM 0.5 MG TAB PO SCH ×2 (10:59→23:52)
[2020-01-30] MEDS: cloNIDine 0.1 MG TAB PO SCH ×2 (11:02→23:51)
[2020-01-30] MEDS: INSULIN GLARGINE 100 UNITS/ML SUB-Q SCH (11:13)
--- NOTE | 2020-01-30 13:13 | Progress Note ---
Assessment and Plan Cultures: Blood culture 01/11/2020 no growth today Urine culture 01/11/2020 10-100,000 normal skin cristina Tracheal aspirate a 01/13/2020 no growth 01/22/2020 Blood culture: no growth A/P: 39-year-old female past medical history morbid obesity, diabetes admitted with severe COVID-19 pneumonia. #Sepsis: secondary to COVID-19 pneumonia. New fever being worked up. No clear source found yet. #Acute hypoxemic respiratory failure: Likely secondary to COVID-19 infection. Extubated 01/24/2020. #COVID-19 pneumonia: Very high d-dimer on admission. Completed ceftriaxone. Completed Remdesivir. Completed steroids 01/25/2020. #Morbid obesity: BMI=52. Associated with worse COVID-19 outcomes #Transaminitis: Likely related to COVID-19 #ARACELI: Resolved #Bradycardia: Resolved. Recs: -anticoagulation per protocol based on d-dimer -continue supportive care and oxygen weaning. May need to be discharged with oxygen Lynn Song MD, FACP [facility] ([facility] C: [phone] O: [phone] F: [phone] Subjective Date of service: 01/30/20 Principal diagnosis: Ac. hypoxemic resp failure; COVID infection; PNA; ARACELI; Thrombocytopenia Interval history: No fever. Remains on oxygen by [place]. Objective - Exam Narrative Exam: Physical Exam (reviewed in chart due to PPE conservation and minimize risk of transmission) Constitutional: limited due to PPE conservation strategy Head, Ears, Nose: limited due to PPE conservation strategy Eyes: limited due to PPE conservation strategy Neck: limited due to PPE conservation strategy Oral: limited due to PPE conservation strategy Cardiovascular: limited due to PPE conservation strategy Respiratory: limited due to PPE conservation strategy GI: limited due to PPE conservation strategy Musculoskeletal: limited due to PPE conservation strategy Skin: limited due to PPE conservation strategy Hem/Lymphatic: limited due to PPE conservation strategy Psych: limited due to PPE conservation strategy Neurological: limited due to PPE conservation strategy - Constitutional Vitals: Vital Signs Temp Pulse Resp BP Pulse Ox 99.1 F 123 H 26 H 163/77 100 01/30/20 11:31 01/30/20 11:31 01/30/20 11:31 01/30/20 11:31 01/30/20 11:31 Temperature -Last 24 Hours Temperature 99.1 F Temperature 97.6 F Temperature 97.4 F Temperature 98.2 F - Labs CBC & Chem 7: 01/29/20 07:32 01/29/20 07:32 Labs: Abnormal lab results 01/29/20 01/30/20 01/30/20 Range/Units 17:29 00:15 05:20 POC Glucose 178 H 187 H 160 H (70-105) 01/30/20 Range/Units 11:47 POC Glucose 263 H (70-105)
--- NOTE | 2020-01-30 13:57 | Progress Note ---
Assessment and Plan Patient awake. Resting on 4 litres O2. O2 saturation 99%. Patient having cough. No acute respiratory distress. Patient afebrile. No leukocytosis. Patient COVID Positive. Patient has CTA of chest 01/23/20 reported Slightly limited contrast b olus. No large central pulmonary embolus is detected. Scattered bilateral lung opacities concerning for viral infection. Mild bilateral atelectatic changes. D dimer 864. Patient was treated with remdesvir, dexamethasone, Ceftriaxone and Zithromax. Patient is on S/C Lovenox and Famotidine. Patient has physical therapy to day. Patient has duplex scan of Upper extremities 01/30/20 reported No sonographic evidence for DVT in the right or left upper extremity. Possible small abscess or seroma right antecubital fossa - Patient Problems (1) Acute hypoxemic respiratory failure Current Visit: Yes Status: Acute Plan to address problem: O2 4 litres via nasal canula. Pro air 2 puffs po qid. Continue S/C Lovenox. Continue famotidine. (2) Pneumonia Current Visit: Yes Status: Acute Plan to address problem: Patient treated with Zithromax and ceftriaxone. Antibiotics as per ID. (3) Anxiety Current Visit: No Status: Acute Plan to address problem: Management as per Primary care. (4) COVID-19 virus infection Current Visit: Yes Status: Acute Plan to address problem: Patient treated with remdesvir and dexamethasone. and S/C Lovenox. Management as per infectious diseases. Subjective Date of service: 01/30/20 Principal diagnosis: Ac. hypoxemic resp failure; COVID infection; PNA; ARACELI; Thrombocytopenia Interval history: Patient awake. Resting on 4 litres O2. O2 saturation 99%. Patient having slight cough. No acute respiratory distress. Patient afebrile. No leukocytosis. Patient COVID Positive. Patient has CTA of chest 01/23/20 reported Slightly limited contrast bolus. No large central pulmonary embolus is detected. Scattered bilateral lung opacities concerning for viral infection. Mild bilateral atelectatic changes. D dimer 864. Patient was treated with remdesvir, dexamethasone, Ceftriaxone and Zithromax. Patient is on S/C Lovenox and Famotidine. Patient has duplex scan of Upper extremities 01/30/20 reported No sonographic evidence for DVT in the right or left upper extremity. Possible small abscess or seroma right antecubital fossa Objective Vital Signs - 12hr 01/30/20 01/30/20 01/30/20 04:59 11:02 11:31 Temperature 97.6 F 99.1 F Pulse Rate 113 H 117 H 123 H Respiratory 16 26 H Rate Blood Pressure 145/80 154/63 163/77 O2 Sat by Pulse 100 100 Oximetry 01/30/20 13:37 Temperature Pulse Rate Respiratory Rate Blood Pressure 163/77 O2 Sat by Pulse Oximetry Constitutional: no acute distress, alert, other (Morbidly obese AAW, NGT in nares) Eyes: non-icteric ENT: oropharynx moist Neck: supple, no lymphadenopathy, no JVD Effort: mildly labored Ascultation: Bilateral: diminished breath sounds, rhonchi Percussion: Bilateral: not dull Cardiovascular: regular rate and rhythm, other Gastrointestinal: normoactive bowel sounds, soft, non-tender, non-distended (pro tuberant) Integumentary: normal Extremities: no cyanosis, no edema, pulses normal, no ischemia or petechiae Neurologic: normal mental status, non-focal exam, pupils equal and round, CN II- XII normal, motor strength normal and Psychiatric: anxious CBC and BMP: 01/29/20 07:32 01/29/20 07:32 ABG, PT/INR, D-dimer: ABG ABG pH 7.46 (7.320-7.450) H 01/22/20 03:35 POC ABG pCO2 36.6 mmHg (32.0-48.0) 01/22/20 03:35 ABG pCO2 46.1 mm Hg 01/20/20 04:21 POC ABG pO2 84.0 mmHg (83-108) 01/22/20 03:35 ABG pO2 81.7 mm Hg (80.0-90.0) 01/20/20 04:21 POC ABG HCO3 25.4 01/22/20 03:35 ABG O2 Saturation 96.5 % (95.0-99.0) 01/20/20 04:21 PT/INR, D-dimer D-Dimer 1505.14 ng/mlDDU (0-234) H 01/29/20 07:32 Abnormal lab findings: Abnormal Labs 01/11/20 01/11/20 01/11/20 17:22 17:22 17:22 WBC RBC Hgb Hct MCV MCH RDW Plt Count Lymph % (Auto) Granite % (Auto) Granite # Granite # (Auto) Seg Neutrophils % Seg Neuts % (Manual) Lymphocytes % (Manual) Seg Neutrophils # Seg Neutrophils # Man Lymphocytes # (Manual) D-Dimer 622.52 H ABG pH POC ABG pCO2 POC ABG pO2 ABG pO2 ABG O2 Saturation ABG Base Excess ABG Oxyhemoglobin ABG HCO3 ABG Hemoglobin Oxyhemoglobin Sodium Potassium Chloride 97.6 L Carbon Dioxide 18 L BUN Creatinine Glucose 199 H POC Glucose Lactic Acid 2.20 H* Calcium Ferritin AST 68 H Magnesium Lactate Dehydrogenase ALT C-Reactive Protein Total Protein Albumin 3.0 L Gvnvy-1-Rwwovfesx Zdftv-1-Fkbemkzoi PEP Interpretation Triglycerides TSH CHICA Screen Complement C4 Coronavirus (PCR) 01/11/20 01/11/20 01/11/20 17:22 17:22 23:29 WBC RBC Hgb Hct MCV MCH RDW Plt Count Lymph % (Auto) Granite % (Auto) Granite # Granite # (Auto) Seg Neutrophils % Seg Neuts % (Manual) Lymphocytes % (Manual) Seg Neutrophils # Seg Neutrophils # Man Lymphocytes # (Manual) D-Dimer ABG pH POC ABG pCO2 POC ABG pO2 ABG pO2 ABG O2 Saturation ABG Base Excess ABG Oxyhemoglobin ABG HCO3 ABG Hemoglobin Oxyhemoglobin Sodium Potassium Chloride Carbon Dioxide BUN Creatinine Glucose 202 H POC Glucose Lactic Acid 2.10 H* Calcium Ferritin 270.3 H AST Magnesium Lactate Dehydrogenase 610 H ALT C-Reactive Protein 23.80 H Total Protein Albumin Deiur-0-Hlvzraowk Sdclc-8-Mwygmxwbd PEP Interpretation Triglycerides TSH CHICA Screen Complement C4 Coronavirus (PCR) 01/12/20 01/12/20 01/12/20 07:07 07:07 09:00 WBC RBC 5.31 H Hgb Hct MCV 76 L MCH 25 L RDW 15.5 H Plt Count Lymph % (Auto) 11.2 L Granite % (Auto) Granite # Granite # (Auto) Seg Neutrophils % 85.2 H Seg Neuts % (Manual) Lymphocytes % (Manual) Seg Neutrophils # 9.2 H Seg Neutrophils # Man Lymphocytes # (Manual) D-Dimer ABG pH POC ABG pCO2 POC ABG pO2 ABG pO2 ABG O2 Saturation ABG Base Excess ABG Oxyhemoglobin ABG HCO3 ABG Hemoglobin Oxyhemoglobin Sodium Potassium Chloride Carbon Dioxide 21 L BUN 23 H Creatinine Glucose 206 H POC Glucose Lactic Acid Calcium Ferritin AST Magnesium Lactate Dehydrogenase ALT C-Reactive Protein Total Protein Albumin Ibcnt-4-Jwacsjobs Pyxtk-3-Nbwktyxcd PEP Interpretation Triglycerides TSH CHICA Screen Complement C4 Coronavirus (PCR) Positive A 01/13/20 01/13/20 01/13/20 01:02 04:45 05:10 WBC RBC Hgb Hct MCV MCH RDW Plt Count Lymph % (Auto) Granite % (Auto) Granite # Granite # (Auto) Seg Neutrophils % Seg Neuts % (Manual) Lymphocytes % (Manual) Seg Neutrophils # Seg Neutrophils # Man Lymphocytes # (Manual) D-Dimer > 83754 H ABG pH 7.19 L POC ABG pCO2 56.2 H POC ABG pO2 44.3 L 62.5 L ABG pO2 ABG O2 Saturation ABG Base Excess ABG Oxyhemoglobin 77.5 L 86.5 L ABG HCO3 ABG Hemoglobin Oxyhemoglobin Sodium Potassium Chloride Carbon Dioxide BUN Creatinine Glucose POC Glucose Lactic Acid Calcium Ferritin AST Magnesium Lactate Dehydrogenase ALT C-Reactive Protein Total Protein Albumin Vysyr-3-Kaxytuhfc Aftin-8-Ldwxetprs PEP Interpretation Triglycerides TSH CHICA Screen Complement C4 Coronavirus (PCR) 01/13/20 01/13/20 01/13/20 05:10 05:54 12:07 WBC RBC Hgb Hct MCV MCH RDW Plt Count Lymph % (Auto) Granite % (Auto) Granite # Granite # (Auto) Seg Neutrophils % Seg Neuts % (Manual) Lymphocytes % (Manual) Seg Neutrophils # Seg Neutrophils # Man Lymphocytes # (Manual) D-Dimer ABG pH POC ABG pCO2 POC ABG pO2 ABG pO2 ABG O2 Saturation ABG Base Excess ABG Oxyhemoglobin ABG HCO3 ABG Hemoglobin Oxyhemoglobin Sodium Potassium Chloride Carbon Dioxide BUN Creatinine Glucose POC Glucose 356 H 309 H Lactic Acid Calcium Ferritin AST Magnesium Lactate Dehydrogenase 999 H ALT C-Reactive Protein Total Protein Albumin Dycof-2-Jrhpklkmj Gurbi-0-Mdiqjfmot PEP Interpretation Triglycerides TSH CHICA Screen Complement C4 Coronavirus (PCR) 01/13/20 01/13/20 01/13/20 12:54 18:46 18:50 WBC 14.0 H RBC Hgb Hct MCV 76 L MCH 25 L RDW 15.8 H Plt Count 113 L Lymph % (Auto) Granite % (Auto) Granite # Granite # (Auto) Seg Neutrophils % Seg Neuts % (Manual) 88.0 H Lymphocytes % (Manual) 2.0 L Seg Neutrophils # Seg Neutrophils # Man 12.3 H Lymphocytes # (Manual) 0.3 L D-Dimer ABG pH 7.290 L POC ABG pCO2 POC ABG pO2 ABG pO2 60.2 L ABG O2 Saturation 88.6 L ABG Base Excess -2.7 L ABG Oxyhemoglobin ABG HCO3 ABG Hemoglobin Oxyhemoglobin 87.1 L Sodium Potassium Chloride Carbon Dioxide BUN Creatinine Glucose POC Glucose 268 H Lactic Acid Calcium Ferritin AST Magnesium Lactate Dehydrogenase ALT C-Reactive Protein Total Protein Albumin Rupkq-1-Zobvvsnyw Sqidb-4-Etzohlfpg PEP Interpretation Triglycerides TSH CHICA Screen Complement C4 Coronavirus (PCR) 01/13/20 01/14/20 01/14/20 23:53 00:31 03:13 WBC RBC Hgb Hct MCV MCH RDW Plt Count Lymph % (Auto) Granite % (Auto) Granite # Granite # (Auto) Seg Neutrophils % Seg Neuts % (Manual) Lymphocytes % (Manual) Seg Neutrophils # Seg Neutrophils # Man Lymphocytes # (Manual) D-Dimer ABG pH POC ABG pCO2 POC ABG pO2 ABG pO2 132.6 H ABG O2 Saturation ABG Base Excess -2.7 L ABG Oxyhemoglobin ABG HCO3 ABG Hemoglobin Oxyhemoglobin Sodium Potassium 5.3 H Chloride Carbon Dioxide BUN 55 H Creatinine 1.6 H Glucose 268 H POC Glucose 259 H Lactic Acid Calcium Ferritin AST 46 H Magnesium Lactate Dehydrogenase ALT C-Reactive Protein Total Protein 6.1 L Albumin 3.1 L Sibjy-5-Kvbqblsia Dlyeq-4-Hcfocckuv PEP Interpretation Triglycerides TSH CHICA Screen Complement C4 Coronavirus (PCR) 01/14/20 01/14/20 01/14/20 05:23 06:06 09:47 WBC RBC Hgb Hct MCV MCH RDW Plt Count Lymph % (Auto) Granite % (Auto) Granite # Granite # (Auto) Seg Neutrophils % Seg Neuts % (Manual) Lymphocytes % (Manual) Seg Neutrophils # Seg Neutrophils # Man Lymphocytes # (Manual) D-Dimer > 56505 H ABG pH POC ABG pCO2 POC ABG pO2 ABG pO2 ABG O2 Saturation ABG Base Excess ABG Oxyhemoglobin ABG HCO3 ABG Hemoglobin Oxyhemoglobin Sodium Potassium 5.5 H Chloride 107.6 H Carbon Dioxide 21 L BUN 58 H Creatinine 1.7 H Glucose 231 H POC Glucose 231 H Lactic Acid Calcium Ferritin AST Magnesium Lactate Dehydrogenase ALT C-Reactive Protein Total Protein Albumin Smcce-9-Iwjxobelb Ksfzw-7-Vghlxuisx PEP Interpretation Triglycerides TSH CHICA Screen Complement C4 Coronavirus (PCR) 01/14/20 01/14/20 01/14/20 09:47 12:20 16:00 WBC RBC Hgb Hct MCV MCH RDW Plt Count Lymph % (Auto) Granite % (Auto) Granite # Granite # (Auto) Seg Neutrophils % Seg Neuts % (Manual) Lymphocytes % (Manual) Seg Neutrophils # Seg Neutrophils # Man Lymphocytes # (Manual) D-Dimer ABG pH POC ABG pCO2 POC ABG pO2 ABG pO2 69.3 L ABG O2 Saturation 94.4 L ABG Base Excess ABG Oxyhemoglobin ABG HCO3 ABG Hemoglobin Oxyhemoglobin 92.7 L Sodium Potassium Chloride 107.2 H Carbon Dioxide 21 L BUN 63 H Creatinine 1.5 H Glucose 217 H POC Glucose 238 H Lactic Acid Calcium Ferritin AST Magnesium Lactate Dehydrogenase ALT C-Reactive Protein Total Protein 6.0 L Albumin 2.7 L Hbhyc-5-Mydccagce Jpcpq-2-Vymawitzo PEP Interpretation Triglycerides TSH CHICA Screen Complement C4 Coronavirus (PCR) 01/14/20 01/14/20 01/14/20 18:24 19:01 23:50 WBC RBC Hgb Hct MCV MCH RDW Plt Count Lymph % (Auto) Granite % (Auto) Granite # Granite # (Auto) Seg Neutrophils % Seg Neuts % (Manual) Lymphocytes % (Manual) Seg Neutrophils # Seg Neutrophils # Man Lymphocytes # (Manual) D-Dimer ABG pH POC ABG pCO2 POC ABG pO2 ABG pO2 ABG O2 Saturation ABG Base Excess ABG Oxyhemoglobin ABG HCO3 ABG Hemoglobin Oxyhemoglobin Sodium 146 H Potassium 5.9 H Chloride 108.0 H Carbon Dioxide 20 L BUN 61 H Creatinine 1.4 H Glucose 254 H POC Glucose 228 H 321 H Lactic Acid Calcium Ferritin AST Magnesium Lactate Dehydrogenase ALT C-Reactive Protein Total Protein Albumin Qsibp-6-Mkgmfqhra Iwosg-9-Tszsekbhw PEP Interpretation Triglycerides TSH CHICA Screen Complement C4 Coronavirus (PCR) 01/14/20 01/14/20 01/14/20 Unknown Unknown Unknown WBC RBC Hgb Hct MCV MCH RDW Plt Count Lymph % (Auto) Granite % (Auto) Granite # Granite # (Auto) Seg Neutrophils % Seg Neuts % (Manual) Lymphocytes % (Manual) Seg Neutrophils # Seg Neutrophils # Man Lymphocytes # (Manual) D-Dimer ABG pH POC ABG pCO2 POC ABG pO2 ABG pO2 ABG O2 Saturation ABG Base Excess ABG Oxyhemoglobin ABG HCO3 ABG Hemoglobin Oxyhemoglobin Sodium Potassium Chloride Carbon Dioxide BUN Creatinine Glucose POC Glucose Lactic Acid Calcium Ferritin AST Magnesium Lactate Dehydrogenase ALT C-Reactive Protein Total Protein Albumin 2.8 L Dwydc-9-Lfytsztcg 0.6 H Jjdyz-3-Yvgxarlcf 1.1 H PEP Interpretation see below H Triglycerides TSH CHICA Screen Positive H Complement C4 76 H Coronavirus (PCR) 01/15/20 01/15/20 01/15/20 03:37 03:57 03:57 WBC 14.9 H RBC Hgb Hct MCV 75 L MCH 25 L RDW 15.4 H Plt Count Lymph % (Auto) 8.6 L Granite % (Auto) Granite # 1.0 H Granite # (Auto) Seg Neutrophils % 84.2 H Seg Neuts % (Manual) Lymphocytes % (Manual) Seg Neutrophils # 12.5 H Seg Neutrophils # Man Lymphocytes # (Manual) D-Dimer ABG pH 7.480 H POC ABG pCO2 POC ABG pO2 76.7 L ABG pO2 ABG O2 Saturation ABG Base Excess ABG Oxyhemoglobin ABG HCO3 ABG Hemoglobin Oxyhemoglobin Sodium 152 H Potassium Chloride 113.0 H Carbon Dioxide BUN 52 H Creatinine Glucose 288 H POC Glucose Lactic Acid Calcium Ferritin AST Magnesium Lactate Dehydrogenase ALT C-Reactive Protein Total Protein Albumin Xyhgo-3-Vurebunmk Mbqug-3-Pfdwyirov PEP Interpretation Triglycerides TSH CHICA Screen Complement C4 Coronavirus (PCR) 01/15/20 01/15/20 01/15/20 05:50 11:56 14:35 WBC RBC Hgb Hct MCV MCH RDW Plt Count Lymph % (Auto) Granite % (Auto) Granite # Granite # (Auto) Seg Neutrophils % Seg Neuts % (Manual) Lymphocytes % (Manual) Seg Neutrophils # Seg Neutrophils # Man Lymphocytes # (Manual) D-Dimer ABG pH POC ABG pCO2 POC ABG pO2 ABG pO2 ABG O2 Saturation ABG Base Excess ABG Oxyhemoglobin ABG HCO3 ABG Hemoglobin Oxyhemoglobin Sodium Potassium Chloride Carbon Dioxide BUN Creatinine Glucose POC Glucose 259 H 162 H Lactic Acid Calcium Ferritin 332.4 H AST Magnesium Lactate Dehydrogenase ALT C-Reactive Protein Total Protein Albumin Irqps-0-Zfewhdusu Rvypa-8-Taqucvfqq PEP Interpretation Triglycerides TSH CHICA Screen Complement C4 Coronavirus (PCR) 01/15/20 01/15/20 01/15/20 14:35 14:35 14:35 WBC RBC Hgb Hct MCV MCH RDW Plt Count Lymph % (Auto) Granite % (Auto) Granite # Granite # (Auto) Seg Neutrophils % Seg Neuts % (Manual) Lymphocytes % (Manual) Seg Neutrophils # Seg Neutrophils # Man Lymphocytes # (Manual) D-Dimer ABG pH POC ABG pCO2 POC ABG pO2 ABG pO2 ABG O2 Saturation ABG Base Excess ABG Oxyhemoglobin ABG HCO3 ABG Hemoglobin Oxyhemoglobin Sodium Potassium Chloride Carbon Dioxide BUN Creatinine Glucose POC Glucose Lactic Acid Calcium Ferritin AST Magnesium 3.00 H Lactate Dehydrogenase 747 H ALT C-Reactive Protein 7.60 H Total Protein Albumin Cpuax-7-Bdeerprxt Prade-3-Rxlncqblp PEP Interpretation Triglycerides TSH 0.221 L CHICA Screen Complement C4 Coronavirus (PCR) 01/15/20 01/15/20 01/15/20 16:18 17:31 23:26 WBC RBC Hgb Hct MCV MCH RDW Plt Count Lymph % (Auto) Granite % (Auto) Granite # Granite # (Auto) Seg Neutrophils % Seg Neuts % (Manual) Lymphocytes % (Manual) Seg Neutrophils # Seg Neutrophils # Man Lymphocytes # (Manual) D-Dimer ABG pH 7.510 H POC ABG pCO2 POC ABG pO2 76.6 L ABG pO2 ABG O2 Saturation ABG Base Excess ABG Oxyhemoglobin ABG HCO3 ABG Hemoglobin Oxyhemoglobin Sodium Potassium Chloride Carbon Dioxide BUN Creatinine Glucose POC Glucose 239 H 226 H Lactic Acid Calcium Ferritin AST Magnesium Lactate Dehydrogenase ALT C-Reactive Protein Total Protein Albumin Xvghb-4-Phgeooial Tqkhy-1-Wsgoqlmtl PEP Interpretation Triglycerides TSH CHICA Screen Complement C4 Coronavirus (PCR) 01/16/20 01/16/20 01/16/20 03:33 04:00 04:00 WBC 13.6 H RBC Hgb Hct MCV 74 L MCH 25 L RDW 15.4 H Plt Count Lymph % (Auto) Granite % (Auto) Granite # Granite # (Auto) Seg Neutrophils % Seg Neuts % (Manual) 91.0 H Lymphocytes % (Manual) 5.0 L Seg Neutrophils # Seg Neutrophils # Man 12.4 H Lymphocytes # (Manual) 0.7 L D-Dimer ABG pH 7.477 H POC ABG pCO2 POC ABG pO2 ABG pO2 ABG O2 Saturation ABG Base Excess ABG Oxyhemoglobin ABG HCO3 ABG Hemoglobin Oxyhemoglobin Sodium 151 H Potassium Chloride 113.8 H Carbon Dioxide BUN 45 H Creatinine Glucose 213 H POC Glucose Lactic Acid Calcium Ferritin AST Magnesium Lactate Dehydrogenase ALT C-Reactive Protein Total Protein Albumin Voqkz-6-Hpgvxvuni Drtjq-2-Qrhohsjgz PEP Interpretation Triglycerides TSH CHICA Screen Complement C4 Coronavirus (PCR) 01/16/20 01/16/20 01/16/20 05:45 12:02 17:27 WBC RBC Hgb Hct MCV MCH RDW Plt Count Lymph % (Auto) Granite % (Auto) Granite # Granite # (Auto) Seg Neutrophils % Seg Neuts % (Manual) Lymphocytes % (Manual) Seg Neutrophils # Seg Neutrophils # Man Lymphocytes # (Manual) D-Dimer ABG pH POC ABG pCO2 POC ABG pO2 ABG pO2 ABG O2 Saturation ABG Base Excess ABG Oxyhemoglobin ABG HCO3 ABG Hemoglobin Oxyhemoglobin Sodium Potassium Chloride Carbon Dioxide BUN Creatinine Glucose POC Glucose 202 H 186 H 240 H Lactic Acid Calcium Ferritin AST Magnesium Lactate Dehydrogenase ALT C-Reactive Protein Total Protein Albumin Ytslh-5-Yeafbixbw Zrlbq-2-Gwhvkabev PEP Interpretation Triglycerides TSH CHICA Screen Complement C4 Coronavirus (PCR) 01/17/20 01/17/20 01/17/20 00:07 04:50 05:46 WBC RBC Hgb Hct MCV MCH RDW Plt Count Lymph % (Auto) Granite % (Auto) Granite # Granite # (Auto) Seg Neutrophils % Seg Neuts % (Manual) Lymphocytes % (Manual) Seg Neutrophils # Seg Neutrophils # Man Lymphocytes # (Manual) D-Dimer ABG pH 7.494 H POC ABG pCO2 POC ABG pO2 ABG pO2 73.4 L ABG O2 Saturation ABG Base Excess ABG Oxyhemoglobin ABG HCO3 ABG Hemoglobin Oxyhemoglobin 94.4 L Sodium Potassium Chloride Carbon Dioxide BUN Creatinine Glucose POC Glucose 207 H 170 H Lactic Acid Calcium Ferritin AST Magnesium Lactate Dehydrogenase ALT C-Reactive Protein Total Protein Albumin Wkouw-7-Fbrvzmzux Agsuj-9-Hlhemxmyd PEP Interpretation Triglycerides TSH CHICA Screen Complement C4 Coronavirus (PCR) 01/17/20 01/17/20 01/17/20 06:00 06:00 11:32 WBC 11.5 H RBC Hgb Hct MCV 75 L MCH 25 L RDW 15.5 H Plt Count Lymph % (Auto) Granite % (Auto) Granite # Granite # (Auto) Seg Neutrophils % Seg Neuts % (Manual) 81.0 H Lymphocytes % (Manual) 10.0 L Seg Neutrophils # Seg Neutrophils # Man 9.3 H Lymphocytes # (Manual) D-Dimer ABG pH POC ABG pCO2 POC ABG pO2 ABG pO2 ABG O2 Saturation ABG Base Excess ABG Oxyhemoglobin ABG HCO3 ABG Hemoglobin Oxyhemoglobin Sodium 151 H Potassium Chloride 113.6 H Carbon Dioxide BUN 40 H Creatinine Glucose 149 H POC Glucose 229 H Lactic Acid Calcium Ferritin AST Magnesium Lactate Dehydrogenase ALT C-Reactive Protein Total Protein Albumin Kafzo-0-Uwegsqszw Mlqbt-2-Wmdxoimpc PEP Interpretation Triglycerides TSH CHICA Screen Complement C4 Coronavirus (PCR) 01/17/20 01/17/20 01/17/20 13:40 13:40 13:40 WBC RBC Hgb Hct MCV MCH RDW Plt Count Lymph % (Auto) Granite % (Auto) Granite # Granite # (Auto) Seg Neutrophils % Seg Neuts % (Manual) Lymphocytes % (Manual) Seg Neutrophils # Seg Neutrophils # Man Lymphocytes # (Manual) D-Dimer 1878.79 H ABG pH POC ABG pCO2 POC ABG pO2 ABG pO2 ABG O2 Saturation ABG Base Excess ABG Oxyhemoglobin ABG HCO3 ABG Hemoglobin Oxyhemoglobin Sodium Potassium Chloride Carbon Dioxide BUN Creatinine Glucose POC Glucose Lactic Acid Calcium Ferritin 322.8 H AST Magnesium Lactate Dehydrogenase 587 H ALT C-Reactive Protein 4.60 H Total Protein Albumin Gkemo-7-Uuczurexe Avutt-6-Sytsntxqz PEP Interpretation Triglycerides TSH CHICA Screen Complement C4 Coronavirus (PCR) 01/17/20 01/17/20 01/17/20 17:45 21:30 23:53 WBC RBC Hgb Hct MCV MCH RDW Plt Count Lymph % (Auto) Granite % (Auto) Granite # Granite # (Auto) Seg Neutrophils % Seg Neuts % (Manual) Lymphocytes % (Manual) Seg Neutrophils # Seg Neutrophils # Man Lymphocytes # (Manual) D-Dimer ABG pH POC ABG pCO2 POC ABG pO2 ABG pO2 179.6 H ABG O2 Saturation 99.2 H ABG Base Excess ABG Oxyhemoglobin ABG HCO3 ABG Hemoglobin 11.8 L Oxyhemoglobin Sodium Potassium Chloride Carbon Dioxide BUN Creatinine Glucose POC Glucose 364 H 272 H Lactic Acid Calcium Ferritin AST Magnesium Lactate Dehydrogenase ALT C-Reactive Protein Total Protein Albumin Wshgl-4-Zjllulafq Hhhdj-3-Auuesbwkt PEP Interpretation Triglycerides TSH CHICA Screen Complement C4 Coronavirus (PCR) 01/18/20 01/18/20 01/18/20 03:40 04:00 05:00 WBC RBC Hgb Hct MCV MCH RDW Plt Count Lymph % (Auto) Granite % (Auto) Granite # Granite # (Auto) Seg Neutrophils % Seg Neuts % (Manual) Lymphocytes % (Manual) Seg Neutrophils # Seg Neutrophils # Man Lymphocytes # (Manual) D-Dimer ABG pH POC ABG pCO2 POC ABG pO2 ABG pO2 162.6 H ABG O2 Saturation ABG Base Excess ABG Oxyhemoglobin ABG HCO3 ABG Hemoglobin Oxyhemoglobin Sodium 150 H Potassium Chloride 113.4 H Carbon Dioxide BUN 44 H Creatinine Glucose 268 H POC Glucose Lactic Acid Calcium Ferritin AST Magnesium Lactate Dehydrogenase ALT C-Reactive Protein Total Protein Albumin Vseld-9-Zbetrjtut Ifnvz-9-Kjkzvomiv PEP Interpretation Triglycerides 198 H TSH CHICA Screen Complement C4 Coronavirus (PCR) 01/18/20 01/18/20 01/18/20 05:54 11:21 17:27 WBC RBC Hgb Hct MCV MCH RDW Plt Count Lymph % (Auto) Granite % (Auto) Granite # Granite # (Auto) Seg Neutrophils % Seg Neuts % (Manual) Lymphocytes % (Manual) Seg Neutrophils # Seg Neutrophils # Man Lymphocytes # (Manual) D-Dimer ABG pH POC ABG pCO2 POC ABG pO2 ABG pO2 ABG O2 Saturation ABG Base Excess ABG Oxyhemoglobin ABG HCO3 ABG Hemoglobin Oxyhemoglobin Sodium Potassium Chloride Carbon Dioxide BUN Creatinine Glucose POC Glucose 271 H 244 H 232 H Lactic Acid Calcium Ferritin AST Magnesium Lactate Dehydrogenase ALT C-Reactive Protein Total Protein Albumin Hyzmb-2-Opdvwfrkk Jrdwh-1-Gafklogda PEP Interpretation Triglycerides TSH CHICA Screen Complement C4 Coronavirus (PCR) 01/19/20 01/19/20 01/19/20 00:12 04:00 04:40 WBC RBC Hgb Hct MCV MCH RDW Plt Count Lymph % (Auto) Granite % (Auto) Granite # Granite # (Auto) Seg Neutrophils % Seg Neuts % (Manual) Lymphocytes % (Manual) Seg Neutrophils # Seg Neutrophils # Man Lymphocytes # (Manual) D-Dimer ABG pH POC ABG pCO2 POC ABG pO2 ABG pO2 117.2 H ABG O2 Saturation ABG Base Excess ABG Oxyhemoglobin ABG HCO3 ABG Hemoglobin 9.7 L Oxyhemoglobin Sodium 146 H Potassium Chloride 111.3 H Carbon Dioxide BUN 38 H Creatinine Glucose 168 H POC Glucose 143 H Lactic Acid Calcium Ferritin AST Magnesium Lactate Dehydrogenase ALT C-Reactive Protein Total Protein Albumin Kwvfh-2-Apoqxslqs Bckhh-0-Kndjrogir PEP Interpretation Triglycerides TSH CHICA Screen Complement C4 Coronavirus (PCR) 01/19/20 01/19/20 01/19/20 05:41 12:02 18:13 WBC RBC Hgb Hct MCV MCH RDW Plt Count Lymph % (Auto) Granite % (Auto) Granite # Granite # (Auto) Seg Neutrophils % Seg Neuts % (Manual) Lymphocytes % (Manual) Seg Neutrophils # Seg Neutrophils # Man Lymphocytes # (Manual) D-Dimer ABG pH POC ABG pCO2 POC ABG pO2 ABG pO2 ABG O2 Saturation ABG Base Excess ABG Oxyhemoglobin ABG HCO3 ABG Hemoglobin Oxyhemoglobin Sodium Potassium Chloride Carbon Dioxide BUN Creatinine Glucose POC Glucose 171 H 208 H 272 H Lactic Acid Calcium Ferritin AST Magnesium Lactate Dehydrogenase ALT C-Reactive Protein Total Protein Albumin Dfqld-7-Wnyetvrdl Tpaaf-5-Nbvnfikyr PEP Interpretation Triglycerides TSH CHICA Screen Complement C4 Coronavirus (PCR) 01/20/20 01/20/20 01/20/20 00:13 04:21 05:30 WBC RBC Hgb Hct MCV MCH RDW Plt Count Lymph % (Auto) Granite % (Auto) Granite # Granite # (Auto) Seg Neutrophils % Seg Neuts % (Manual) Lymphocytes % (Manual) Seg Neutrophils # Seg Neutrophils # Man Lymphocytes # (Manual) D-Dimer ABG pH POC ABG pCO2 POC ABG pO2 ABG pO2 ABG O2 Saturation ABG Base Excess ABG Oxyhemoglobin ABG HCO3 26.8 H ABG Hemoglobin 10.7 L Oxyhemoglobin 94.3 L Sodium Potassium Chloride Carbon Dioxide BUN Creatinine Glucose POC Glucose 223 H 129 H Lactic Acid Calcium Ferritin AST Magnesium Lactate Dehydrogenase ALT C-Reactive Protein Total Protein Albumin Idokq-0-Tortvfywv [id number] PEP Interpretation Triglycerides TSH [place] Screen Complement C4 Coronavirus (PCR) 01/20/20 01/20/20 01/20/20 11:14 11:14 11:14 WBC RBC Hgb Hct MCV MCH RDW Plt Count Lymph % (Auto) [place]ite % (Auto) Granite # [place] # (Auto) Seg Neutrophils % Seg Neuts % (Manual) Lymphocytes % (Manual) Seg Neutrophils # Seg Neutrophils # Man Lymphocytes # (Manual) D-Dimer 1221.96 H ABG pH POC ABG pCO2 POC ABG pO2 ABG pO2 ABG O2 Saturation ABG Base Excess ABG Oxyhemoglobin ABG HCO3 ABG Hemoglobin Oxyhemoglobin Sodium Potassium Chloride Carbon Dioxide BUN Creatinine Glucose POC Glucose Lactic Acid Calcium Ferritin 364.6 H AST Magnesium Lactate Dehydrogenase 403 H ALT C-Reactive Protein 5.10 H Total Protein Albumin Matqt-7-Vuphuvyls Blehq-2-Psltjawsr PEP Interpretation Triglycerides TSH CHICA Screen Complement C4 Coronavirus (PCR) 01/20/20 01/20/20 01/20/20 12:01 18:10 23:07 WBC RBC Hgb Hct MCV MCH RDW Plt Count Lymph % (Auto) Granite % (Auto) Granite # Granite # (Auto) Seg Neutrophils % Seg Neuts % (Manual) Lymphocytes % (Manual) Seg Neutrophils # Seg Neutrophils # Man Lymphocytes # (Manual) D-Dimer ABG pH POC ABG pCO2 POC ABG pO2 ABG pO2 ABG O2 Saturation ABG Base Excess ABG Oxyhemoglobin ABG HCO3 ABG Hemoglobin Oxyhemoglobin Sodium Potassium Chloride Carbon Dioxide BUN Creatinine Glucose POC Glucose 260 H 317 H 237 H Lactic Acid Calcium Ferritin AST Magnesium Lactate Dehydrogenase ALT C-Reactive Protein Total Protein Albumin Vwmml-4-Ihihoitrx Vlrdh-1-Zrkpszypw PEP Interpretation Triglycerides TSH CHICA Screen Complement C4 Coronavirus (PCR) 01/21/20 01/21/20 01/21/20 05:25 05:25 05:42 WBC 11.3 H RBC Hgb 9.1 L Hct 28.9 L MCV 77 L MCH 24 L RDW Plt Count Lymph % (Auto) Granite % (Auto) Granite # Granite # (Auto) Seg Neutrophils % Seg Neuts % (Manual) Lymphocytes % (Manual) Seg Neutrophils # Seg Neutrophils # Man Lymphocytes # (Manual) D-Dimer ABG pH POC ABG pCO2 POC ABG pO2 ABG pO2 ABG O2 Saturation ABG Base Excess ABG Oxyhemoglobin ABG HCO3 ABG Hemoglobin Oxyhemoglobin Sodium 147 H Potassium Chloride 111.0 H Carbon Dioxide 31 H D BUN 20 H Creatinine Glucose 103 H POC Glucose 110 H Lactic Acid Calcium 8.2 L Ferritin AST Magnesium Lactate Dehydrogenase ALT C-Reactive Protein Total Protein Albumin Aivff-7-Wnqkdxbeg Voylz-3-Uaehgfitr PEP Interpretation Triglycerides TSH CH[facility] Screen Complement C4 Coronavirus (PCR) 01/21/20 01/21/20 01/21/20 11:49 18:41 21:53 WBC RBC Hgb Hct MCV MCH RDW Plt Count Lymph % (Auto) Granite % (Auto) Granite # Granite # (Auto) Seg Neutrophils % Seg Neuts % (Manual) Lymphocytes % (Manual) Seg Neutrophils # Seg Neutrophils # Man Lymphocytes # (Manual) D-Dimer ABG pH POC ABG pCO2 POC ABG pO2 ABG pO2 ABG O2 Saturation ABG Base Excess ABG Oxyhemoglobin ABG HCO3 ABG Hemoglobin Oxyhemoglobin Sodium Potassium Chloride Carbon Dioxide BUN Creatinine Glucose POC Glucose 147 H 290 H 255 H Lactic Acid Calcium Ferritin AST Magnesium Lactate Dehydrogenase ALT C-Reactive Protein Total Protein Albumin Jvqpi-3-Peeucklik Qidcc-1-Uptjbgtjn PEP Interpretation Triglycerides TSH CHICA Screen Complement C4 Coronavirus (PCR) 01/22/20 01/22/20 01/22/20 03:35 04:42 05:23 WBC RBC Hgb Hct MCV MCH RDW Plt Count Lymph % (Auto) Granite % (Auto) Granite # Granite # (Auto) Seg Neutrophils % Seg Neuts % (Manual) Lymphocytes % (Manual) Seg Neutrophils # Seg Neutrophils # Man Lymphocytes # (Manual) D-Dimer ABG pH 7.46 H POC ABG pCO2 POC ABG pO2 ABG pO2 ABG O2 Saturation ABG Base Excess ABG Oxyhemoglobin ABG HCO3 ABG Hemoglobin 10.4 L Oxyhemoglobin Sodium 148 H Potassium 3.5 L Chloride 108.1 H Carbon Dioxide BUN 19 H Creatinine Glucose 159 H POC Glucose 173 H Lactic Acid Calcium 8.1 L Ferritin AST Magnesium Lactate Dehydrogenase ALT C-Reactive Protein Total Protein Albumin Lvzkx-1-Fzfunshwv Bmrpe-1-Itjaskmeo PEP Interpretation Triglycerides TSH CH[facility] Screen Complement C4 Coronavirus (PCR) 01/22/20 01/22/20 01/22/20 12:41 17:46 23:06 WBC RBC Hgb Hct MCV MCH RDW Plt Count Lymph % (Auto) Granite % (Auto) Granite # Granite # (Auto) Seg Neutrophils % Seg Neuts % (Manual) Lymphocytes % (Manual) Seg Neutrophils # Seg Neutrophils # Man Lymphocytes # (Manual) D-Dimer ABG pH POC ABG pCO2 POC ABG pO2 ABG pO2 ABG O2 Saturation ABG Base Excess ABG Oxyhemoglobin ABG HCO3 ABG Hemoglobin Oxyhemoglobin Sodium Potassium Chloride Carbon Dioxide BUN Creatinine Glucose POC Glucose 284 H 245 H 245 H Lactic Acid Calcium Ferritin AST Magnesium Lactate Dehydrogenase ALT C-Reactive Protein Total Protein Albumin Castx-1-Tmzpoqoyn Nmhqd-3-Azfxnyhqf PEP Interpretation Triglycerides TSH CH[facility] Screen Complement C4 Coronavirus (PCR) 01/23/20 01/23/20 01/23/20 05:50 06:10 06:10 WBC RBC Hgb Hct MCV MCH RDW Plt Count Lymph % (Auto) Granite % (Auto) Granite # Granite # (Auto) Seg Neutrophils % Seg Neuts % (Manual) Lymphocytes % (Manual) Seg Neutrophils # Seg Neutrophils # Man Lymphocytes # (Manual) D-Dimer 451.53 H ABG pH POC ABG pCO2 POC ABG pO2 ABG pO2 ABG O2 Saturation ABG Base Excess ABG Oxyhemoglobin ABG HCO3 ABG Hemoglobin Oxyhemoglobin Sodium Potassium Chloride 110.3 H Carbon Dioxide BUN 19 H Creatinine 0.5 L Glucose 178 H POC Glucose 184 H Lactic Acid Calcium 7.6 L Ferritin AST Magnesium Lactate Dehydrogenase ALT C-Reactive Protein 3.30 H Total Protein Albumin Jmcec-0-Uznobckta Sdhif-5-Dkbenrqtr PEP Interpretation Triglycerides TSH CH[facility] Screen Complement C4 Coronavirus (PCR) 01/23/20 01/23/20 01/23/20 12:29 17:57 22:15 WBC 12.8 H RBC Hgb 9.7 L Hct MCV 77 L MCH 25 L RDW Plt Count Lymph % (Auto) Granite % (Auto) 9.1 H Granite # Granite # (Auto) 1.2 H Seg Neutrophils % Seg Neuts % (Manual) Lymphocytes % (Manual) Seg Neutrophils # 8.6 H Seg Neutrophils # Man Lymphocytes # (Manual) D-Dimer ABG pH POC ABG pCO2 POC ABG pO2 ABG pO2 ABG O2 Saturation ABG Base Excess ABG Oxyhemoglobin ABG HCO3 ABG Hemoglobin Oxyhemoglobin Sodium Potassium Chloride Carbon Dioxide BUN Creatinine Glucose POC Glucose 258 H 248 H Lactic Acid Calcium Ferritin AST Magnesium Lactate Dehydrogenase ALT C-Reactive Protein Total Protein Albumin Qrdop-9-Ygexbbapj Rcowr-9-Vxbxituuy PEP Interpretation Triglycerides TSH CH[facility] Screen Complement C4 Coronavirus (PCR) 01/23/20 01/24/20 01/24/20 23:28 06:00 06:00 WBC 12.4 H RBC Hgb 9.3 L Hct 28.6 L MCV 77 L MCH 25 L RDW Plt Count Lymph % (Auto) Granite % (Auto) 8.7 H Granite # Granite # (Auto) 1.1 H Seg Neutrophils % 71.2 H Seg Neuts % (Manual) Lymphocytes % (Manual) Seg Neutrophils # 8.8 H Seg Neutrophils # Man Lymphocytes # (Manual) D-Dimer ABG pH POC ABG pCO2 POC ABG pO2 ABG pO2 ABG O2 Saturation ABG Base Excess ABG Oxyhemoglobin ABG HCO3 ABG Hemoglobin Oxyhemoglobin Sodium Potassium 3.4 L Chloride 107.3 H Carbon Dioxide BUN Creatinine Glucose POC Glucose 200 H Lactic Acid Calcium Ferritin AST Magnesium Lactate Dehydrogenase ALT C-Reactive Protein Total Protein Albumin Ubwtl-8-Jjlkerctg Joajp-8-Zqagbqqeu PEP Interpretation Triglycerides TSH [facility] Screen Complement C4 Coronavirus (PCR) 01/24/20 01/24/20 01/24/20 10:02 12:31 17:59 WBC RBC Hgb Hct MCV MCH RDW Plt Count Lymph % (Auto) Granite % (Auto) Granite # Granite # (Auto) Seg Neutrophils % Seg Neuts % (Manual) Lymphocytes % (Manual) Seg Neutrophils # Seg Neutrophils # Man Lymphocytes # (Manual) D-Dimer ABG pH POC ABG pCO2 POC ABG pO2 ABG pO2 ABG O2 Saturation ABG Base Excess ABG Oxyhemoglobin ABG HCO3 ABG Hemoglobin Oxyhemoglobin Sodium Potassium Chloride Carbon Dioxide BUN Creatinine Glucose POC Glucose 161 H 252 H 182 H Lactic Acid Calcium Ferritin AST Magnesium Lactate Dehydrogenase ALT C-Reactive Protein Total Protein Albumin Bfosy-4-Ijhkzyxwb Yiaoe-7-Lkhidewpa PEP Interpretation Triglycerides TSH [facility] Screen Complement C4 Coronavirus (PCR) 01/25/20 01/25/20 01/25/20 00:21 05:43 12:01 WBC RBC Hgb Hct MCV MCH RDW Plt Count Lymph % (Auto) Granite % (Auto) Granite # Granite # (Auto) Seg Neutrophils % Seg Neuts % (Manual) Lymphocytes % (Manual) Seg Neutrophils # Seg Neutrophils # Man Lymphocytes # (Manual) D-Dimer ABG pH POC ABG pCO2 POC ABG pO2 ABG pO2 ABG O2 Saturation ABG Base Excess ABG Oxyhemoglobin ABG HCO3 ABG Hemoglobin Oxyhemoglobin Sodium Potassium Chloride Carbon Dioxide BUN Creatinine Glucose POC Glucose 125 H 132 H 215 H Lactic Acid Calcium Ferritin AST Magnesium Lactate Dehydrogenase ALT C-Reactive Protein Total Protein Albumin Vyslq-4-Urwhtsvpl Ipzwi-5-Eadlplyuw PEP Interpretation Triglycerides TSH [facility] Screen Complement C4 Coronavirus (PCR) 01/25/20 01/26/20 01/26/20 18:23 00:20 04:43 WBC RBC Hgb Hct MCV MCH RDW Plt Count Lymph % (Auto) Granite % (Auto) Granite # Granite # (Auto) Seg Neutrophils % Seg Neuts % (Manual) Lymphocytes % (Manual) Seg Neutrophils # Seg Neutrophils # Man Lymphocytes # (Manual) D-Dimer 864.61 H ABG pH POC ABG pCO2 POC ABG pO2 ABG pO2 ABG O2 Saturation ABG Base Excess ABG Oxyhemoglobin ABG HCO3 ABG Hemoglobin Oxyhemoglobin Sodium Potassium Chloride Carbon Dioxide BUN Creatinine Glucose POC Glucose 213 H 173 H Lactic Acid Calcium Ferritin AST Magnesium Lactate Dehydrogenase ALT C-Reactive Protein Total Protein Albumin Oscfd-2-Eetwbjqxb Quzgs-4-Dtycvbnhy PEP Interpretation Triglycerides TSH [facility] Screen Complement C4 Coronavirus (PCR) 01/26/20 01/26/20 01/26/20 04:43 04:43 05:45 WBC RBC Hgb Hct MCV MCH RDW Plt Count Lymph % (Auto) Granite % (Auto) Granite # Granite # (Auto) Seg Neutrophils % Seg Neuts % (Manual) Lymphocytes % (Manual) Seg Neutrophils # Seg Neutrophils # Man Lymphocytes # (Manual) D-Dimer ABG pH POC ABG pCO2 POC ABG pO2 ABG pO2 ABG O2 Saturation ABG Base Excess ABG Oxyhemoglobin ABG HCO3 ABG Hemoglobin Oxyhemoglobin Sodium Potassium Chloride Carbon Dioxide BUN Creatinine Glucose POC Glucose 131 H Lactic Acid Calcium Ferritin 267.6 H AST Magnesium Lactate Dehydrogenase 319 H ALT C-Reactive Protein 8.90 H Total Protein Albumin Tgmsb-1-Ztalrlshb Xhqnx-2-Zqqcrcuif PEP Interpretation Triglycerides TSH [facility] Screen Complement C4 Coronavirus (PCR) 01/26/20 01/26/20 01/26/20 10:37 10:37 12:05 WBC RBC 3.51 L Hgb 8.8 L Hct 27.1 L MCV 77 L MCH 25 L RDW Plt Count Lymph % (Auto) Granite % (Auto) 7.8 H Granite # Granite # (Auto) Seg Neutrophils % 74.0 H Seg Neuts % (Manual) Lymphocytes % (Manual) Seg Neutrophils # 8.0 H Seg Neutrophils # Man Lymphocytes # (Manual) D-Dimer ABG pH POC ABG pCO2 POC ABG pO2 ABG pO2 ABG O2 Saturation ABG Base Excess ABG Oxyhemoglobin ABG HCO3 ABG Hemoglobin Oxyhemoglobin Sodium Potassium 3.5 L Chloride Carbon Dioxide BUN Creatinine Glucose 124 H POC Glucose 137 H Lactic Acid Calcium Ferritin AST 49 H Magnesium Lactate Dehydrogenase ALT 81 H C-Reactive Protein Total Protein 5.6 L Albumin 2.6 L Uuytu-2-Edhdzihen Jhbmd-8-Fkqnvmhlj PEP Interpretation Triglycerides TSH [facility] Screen Complement C4 Coronavirus (PCR) 01/26/20 01/26/20 01/27/20 16:50 23:22 05:37 WBC RBC Hgb Hct MCV MCH RDW Plt Count Lymph % (Auto) Granite % (Auto) Granite # Granite # (Auto) Seg Neutrophils % Seg Neuts % (Manual) Lymphocytes % (Manual) Seg Neutrophils # Seg Neutrophils # Man Lymphocytes # (Manual) D-Dimer ABG pH POC ABG pCO2 POC ABG pO2 ABG pO2 ABG O2 Saturation ABG Base Excess ABG Oxyhemoglobin ABG HCO3 ABG Hemoglobin Oxyhemoglobin Sodium Potassium Chloride Carbon Dioxide BUN Creatinine Glucose POC Glucose 145 H 200 H 168 H Lactic Acid Calcium Ferritin AST Magnesium Lactate Dehydrogenase ALT C-Reactive Protein Total Protein Albumin Hxmsa-1-Xypsjyeby Zafos-8-Fhdqzawsd PEP Interpretation Triglycerides TSH [facility] Screen Complement C4 Coronavirus (PCR) 01/27/20 01/27/20 01/27/20 11:36 17:06 22:28 WBC RBC Hgb Hct MCV MCH RDW Plt Count Lymph % (Auto) Granite % (Auto) Granite # Granite # (Auto) Seg Neutrophils % Seg Neuts % (Manual) Lymphocytes % (Manual) Seg Neutrophils # Seg Neutrophils # Man Lymphocytes # (Manual) D-Dimer ABG pH POC ABG pCO2 POC ABG pO2 ABG pO2 ABG O2 Saturation ABG Base Excess ABG Oxyhemoglobin ABG HCO3 ABG Hemoglobin Oxyhemoglobin Sodium Potassium Chloride Carbon Dioxide BUN Creatinine Glucose POC Glucose 210 H 174 H 169 H Lactic Acid Calcium Ferritin AST Magnesium Lactate Dehydrogenase ALT C-Reactive Protein Total Protein Albumin Bbjoh-1-Uhsysryyc Lvnxy-5-Ewddxszxh PEP Interpretation Triglycerides TSH [facility] Screen Complement C4 Coronavirus (PCR) 01/28/20 01/28/20 01/28/20 05:46 11:44 16:59 WBC RBC Hgb Hct MCV MCH RDW Plt Count Lymph % (Auto) Granite % (Auto) Granite # Granite # (Auto) Seg Neutrophils % Seg Neuts % (Manual) Lymphocytes % (Manual) Seg Neutrophils # Seg Neutrophils # Man Lymphocytes # (Manual) D-Dimer ABG pH POC ABG pCO2 POC ABG pO2 ABG pO2 ABG O2 Saturation ABG Base Excess ABG Oxyhemoglobin ABG HCO3 ABG Hemoglobin Oxyhemoglobin Sodium Potassium Chloride Carbon Dioxide BUN Creatinine Glucose POC Glucose 149 H 192 H 163 H Lactic Acid Calcium Ferritin AST Magnesium Lactate Dehydrogenase ALT C-Reactive Protein Total Protein Albumin Xyytl-4-Wbzygvqhp Cahun-5-Nljnbmnmy PEP Interpretation Triglycerides TSH [facility] Screen Complement C4 Coronavirus (PCR) 01/29/20 01/29/20 01/29/20 03:22 05:13 07:32 WBC RBC Hgb Hct MCV MCH RDW Plt Count Lymph % (Auto) Granite % (Auto) Granite # Granite # (Auto) Seg Neutrophils % Seg Neuts % (Manual) Lymphocytes % (Manual) Seg Neutrophils # Seg Neutrophils # Man Lymphocytes # (Manual) D-Dimer 1505.14 H ABG pH POC ABG pCO2 POC ABG pO2 ABG pO2 ABG O2 Saturation ABG Base Excess ABG Oxyhemoglobin ABG HCO3 ABG Hemoglobin Oxyhemoglobin Sodium Potassium Chloride Carbon Dioxide BUN Creatinine Glucose POC Glucose 116 H 140 H Lactic Acid Calcium Ferritin AST Magnesium Lactate Dehydrogenase ALT C-Reactive Protein Total Protein Albumin Jcpya-9-Muwkohtjc Wdueg-0-Eheujbsen PEP Interpretation Triglycerides TSH CH[facility] Screen Complement C4 Coronavirus (PCR) 01/29/20 01/29/20 01/29/20 07:32 07:32 07:32 WBC RBC 3.55 L Hgb 8.9 L Hct 26.9 L MCV 76 L MCH 25 L RDW Plt Count Lymph % (Auto) Granite % (Auto) Granite # Granite # (Auto) Seg Neutrophils % 70.4 H Seg Neuts % (Manual) Lymphocytes % (Manual) Seg Neutrophils # Seg Neutrophils # Man Lymphocytes # (Manual) D-Dimer ABG pH POC ABG pCO2 POC ABG pO2 ABG pO2 ABG O2 Saturation ABG Base Excess ABG Oxyhemoglobin ABG HCO3 ABG Hemoglobin Oxyhemoglobin Sodium Potassium Chloride Carbon Dioxide 31 H BUN Creatinine Glucose 160 H POC Glucose Lactic Acid Calcium Ferritin AST Magnesium Lactate Dehydrogenase ALT 65 H C-Reactive Protein 6.20 H Total Protein 6.0 L Albumin 3.0 L Vhupw-7-Oxirfmpqz Zdnjt-7-Nhtixaknw PEP Interpretation Triglycerides TSH CHICA Screen Complement C4 Coronavirus (PCR) 01/29/20 01/29/20 01/30/20 12:03 17:29 00:15 WBC RBC Hgb Hct MCV MCH RDW Plt Count Lymph % (Auto) Granite % (Auto) Granite # Granite # (Auto) Seg Neutrophils % Seg Neuts % (Manual) Lymphocytes % (Manual) Seg Neutrophils # Seg Neutrophils # Man Lymphocytes # (Manual) D-Dimer ABG pH POC ABG pCO2 POC ABG pO2 ABG pO2 ABG O2 Saturation ABG Base Excess ABG Oxyhemoglobin ABG HCO3 ABG Hemoglobin Oxyhemoglobin Sodium Potassium Chloride Carbon Dioxide BUN Creatinine Glucose POC Glucose 216 H 178 H 187 H Lactic Acid Calcium Ferritin AST Magnesium Lactate Dehydrogenase ALT C-Reactive Protein Total Protein Albumin Vufcl-2-Mlvxchhgk Inbde-2-Ruajfyitn PEP Interpretation Triglycerides TSH CH[facility] Screen Complement C4 Coronavirus (PCR) 01/30/20 01/30/20 05:20 11:47 WBC RBC Hgb Hct MCV MCH RDW Plt Count Lymph % (Auto) Granite % (Auto) Granite # Granite # (Auto) Seg Neutrophils % Seg Neuts % (Manual) Lymphocytes % (Manual) Seg Neutrophils # Seg Neutrophils # Man Lymphocytes # (Manual) D-Dimer ABG pH POC ABG pCO2 POC ABG pO2 ABG pO2 ABG O2 Saturation ABG Base Excess ABG Oxyhemoglobin ABG HCO3 ABG Hemoglobin Oxyhemoglobin Sodium Potassium Chloride Carbon Dioxide BUN Creatinine Glucose POC Glucose 160 H 263 H Lactic Acid Calcium Ferritin AST Magnesium Lactate Dehydrogenase ALT C-Reactive Protein Total Protein Albumin Pejen-6-Njzwgddoi Ukamf-6-Xbswgxqza PEP Interpretation Triglycerides TSH CH[facility] Screen Complement C4 Coronavirus (PCR) Additional Studies: Patient has duplex scan of Upper extremities 01/30/20 reported 1. No sonographic evidence for DVT in the right or left upper extremity. 2. Possible small abscess or seroma right antecubital fossa Allied health notes reviewed: RT
--- NOTE | 2020-01-30 15:08 | Progress Note ---
Assessment and Plan - Patient Problems (1) Sepsis Current Visit: Yes Status: Deleted Qualifiers: Acute respiratory failure type: with hypoxia Plan to address problem: Present on admission Secondary to COVID 19 pneumonia Completed antibiotics Trend CBC (2) Pneumonia due to COVID-19 virus Current Visit: Yes Status: Acute Plan to address problem: Patient was initially diagnosed 8 days prior to admission. Trend inflammatory markers ID following Completed dexamethasone 6 mg for 10 days S/p remdesivir for 4 days and stopped on 01/17/2020 per ID recommendation because of bradycardia Anticoagulation per protocol Contact/isolation protocols Pulmonary hygiene Supplemental oxygenation as needed OOB 3 times daily Prone to sleep as needed (3) Acute hypoxemic respiratory failure Current Visit: Yes Status: Acute Plan to address problem: Secondary to COVID-19 infection S/P mechanical ventilation, extubated 01/23 Patient currently on 3 L nasal cannula Supplemental oxygenation as needed Pulmonary hygiene Pulmonology consult, recommendations appreciated (4) Elevated d-dimer Current Visit: Yes Status: Acute Plan to address problem: 01/12- d-dimer greater than 10,000 01/21 CTA chest negative for pulmonary medicine 01/23 Bilateral lower extremity DVT ruled out D-dimer has been decreasing since down to 451.53 on 01/22 01/25 d-dimer 864.61 01/28 d-dimer 1505.14 01/29 right upper extremity with swelling and heaviness per patient therefore bilateral upper extremity venous Dopplers ordered to rule out DVT (5) Obesity hypoventilation syndrome Current Visit: Yes Status: Deleted Plan to address problem: Follow-up outpatient for pulmonary function test Secondary to morbid obesity, weight loss counseling (6) Hypertension Current Visit: Yes Status: Chronic Plan to address problem: Antihypertensive regimen: Hydralazine and clonidine PRN labetalol, Vasotec, hydralazine Blood pressure monitoring per protocol (7) Diabetes Current Visit: Yes Status: Acute Plan to address problem: SSI Accu-Cheks AC at bedtime Lantus 15 units daily (8) DVT prophylaxis Current Visit: Yes Status: Acute Plan to address problem: SCDs to bilateral extremities while in bed Lovenox subcu, anticoagulation per COVID-19 protocol (9) Discharge planning issues Current Visit: Yes Status: Acute Plan to address problem: Case management consulted ST/OT/PT recommendations pending 01/24 speech therapy evaluation completed and recommended nectar thickened liquids History Interval history: 39 YO Female with MO, Obesity Hypoventilation Syndrome, DM, Asthma presents to ED for evaluation on 01/10 with shortness of breath over the past 3 days with worsening symptoms over the past 1 day with a nonproductive cough, malaise, weakness, fatigue, decreased exercise tolerance, subjective fever and body aches. Patient stated that she tested positive for coronavirus on 01/02 and has experienced worsening symptoms over the past 3 days. EMS was notified and upon arrival the patient was found to be in distress. Patient placed on supplemental oxygen. Patient found to have a pulse oximetry of 80% on room air which is consistent with acute hypoxemic respiratory failure as well as a fever with a temperature of 101.3 F. Patient underwent chest x-ray which revealed bilateral pneumonia which was complicated by sepsis. Patient admitted to medical floor and initiated on pneumonia protocol as well as COVID-19 protocol as well as sepsis protocol. This morning she states that she feels better however remains on supplemental oxygenation. Speech therapy has evaluated the patient and cleared her for a pured with thin liquid diet which was ordered. Patient complains of right upper arm pain, heaviness and swelling. Given that her d- dimer has elevated yesterday bilateral upper extremity Doppler ultrasound has been ordered to rule out DVT. Patient is still pending PT evaluation. No acute events reported overnight. 01/16/2020; patient is still on mechanical ventilation FiO2 40, PEEP 14, patient is on fentanyl, Versed, propofol. Patient proned. We will continue to monitor. Patient is off IV antibiotics. Treated for 5 days with IV ceftriaxone. ID, nephrology and pulmonary consult appreciated 01/17/2020; patient is still on mechanical ventilation FiO2 40, PEEP 14, patient is on fentanyl, Versed, propofol. Patient proned. We will continue to monitor. Patient is off IV antibiotics. Treated for 5 days with IV ceftriaxone. ID, nephrology and pulmonary consult appreciated. Patient has elevated sodium level and advised to increase free water intake through the NG tube feeding. 01/18/2020; patient is still on mechanical ventilation with FiO2 of 40 and PEEP of 14 patient is on fentanyl and Versed for sedation. Patient is on dexamethasone day 7 and probably severe was stopped yesterday after fourth dose per ID recommendation, patient is bradycardic. Cardiology was consulted and recommend to follow her closely. If heart rates below 40 we want to give her atropine. I discussed the management plan with her father Mr. Baxter in detail at [phone]. Mr. Baxter said his daughter was suffering from asthma and bipolar disorder. 01/19/20; patient is on mechanical ventilation FiO2 of 35 and PEEP of 8, patient is on fentanyl and Versed for sedation. Patient is on dexamethasone day 8. From the severe discontinued after she took for 4 days per ID recommendation due to bradycardia. Cardiology and nephrology consult appreciated. Discussed with her father in detail about the management plan on 01/18/2020. Continue with the same management. Vent management as per advertising copy writer. 01/19 patient remains on vent, on FiO2 of 30% and PEEP of 8. She is on Diprivan and fentanyl. Per discussion with RN ,patient is anxious and intermittently agitated. Patient is awake and alert. Unable to perform review of systems secondary to patient being intubated. All interdisciplinary notes reviewed Lab results reviewed 01/20 no acute events overnight, groggy secondary to sedation, opens eyes to verbal stimulus, yesterday's events noted, BP now well controlled with heart rate also in the normal range. Will adjust blood pressure medication 01/22/20 no acute events overnight, opens eyes to verbal stimulus, yesterday's events noted, BP now well controlled with heart rate also in the normal range. Will adjust blood pressure medication 01/23/2020--patient being weaned so that he can be extubated 01/24/2020 patient extubated today 01/25/2020 patient on BiPAP 01/26/2020 patient still on oxygen 01/27/2020 patient still on high flow oxygen about 30 L 01/28/2020 patient is down to 3 L nasal cannula oxygen and feeling better 01/28: d-dimer elevated to 1505 from 864, patient is already on anticoagulation per Covid protocol. FACILITY REHAB DIRECTOR attempted to contact patient's family members for an update however the call went to voicemail and her voicemail mailbox is not set up. Hospitalist Physical - Constitutional Vitals: Temp Pulse Resp BP Pulse Ox 99.1 F 123 H 26 H 163/77 100 01/30/20 11:31 01/30/20 11:31 01/30/20 11:31 01/30/20 13:37 01/30/20 11:31 General appearance: Present: no acute distress, well-nourished - EENT Eyes: Present: EOM intact ENT: hearing intact, clear oral mucosa - Neck Neck: Present: supple, other (Patient complains of a crook in her neck) - Respiratory Respiratory effort: normal Respiratory: bilateral: diminished - Cardiovascular Rhythm: regular Heart Sounds: Present: S1 & S2. Absent: systolic murmur, diastolic murmur - Extremities Extremities: no ischemia, pulses intact, pulses symmetrical, normal color, Full ROM Extremity abnormal: edema (RUE), tenderness (RUE) Peripheral Pulses: within normal limits - Abdominal General gastrointestinal: soft, non-tender, non-distended, normal bowel sounds - Integumentary Integumentary: Present: warm, dry - Psychiatric Psychiatric: cooperative - Neurologic Neurologic: CNII-XII intact, no focal deficits, moves all extremities Results - Labs CBC & Chem 7: 01/29/20 07:32 01/29/20 07:32 Labs: Laboratory Last Values WBC 10.4 K/mm3 (4.5-11.0) 01/29/20 07:32 RBC 3.55 M/mm3 (3.65-5.03) L 01/29/20 07:32 Hgb 8.9 gm/dl (10.1-14.3) L 01/29/20 07:32 Hct 26.9 % (30.3-42.9) L 01/29/20 07:32 MCV 76 fl (79-97) L 01/29/20 07:32 MCH 25 pg (28-32) L 01/29/20 07:32 MCHC 33 % (30-34) 01/29/20 07:32 RDW 15.1 % (13.2-15.2) 01/29/20 07:32 Plt Count 361 K/mm3 (140-440) 01/29/20 07:32 Lymph % (Auto) 19.2 % (13.4-35.0) 01/29/20 07:32 [place] % (Auto) 7.1 % (0.0-7.3) 01/29/20 07:32 Eos % (Auto) 2.7 % (0.0-4.3) 01/29/20 07:32 Baso % (Auto) 0.6 % (0.0-1.8) 01/29/20 07:32 Lymph # (Auto) 2.0 K/mm3 (1.2-5.4) 01/29/20 07:32 [place] # (Auto) 0.7 K/mm3 (0.0-0.8) 01/29/20 07:32 Eos # (Auto) 0.3 K/mm3 (0.0-0.4) 01/29/20 07:32 Baso # (Auto) 0.1 K/mm3 (0.0-0.1) 01/29/20 07:32 Add Manual Diff Complete 01/17/20 06:00 Total Counted 100 01/17/20 06:00 Seg Neutrophils % 70.4 % (40.0-70.0) H 01/29/20 07:32 Seg Neuts % (Manual) 81.0 % (40.0-70.0) H 01/17/20 06:00 Band Neutrophils % 0 % 01/17/20 06:00 Lymphocytes % (Manual) 10.0 % (13.4-35.0) L 01/17/20 06:00 Reactive Lymphs % (Man) 0 % 01/17/20 06:00 Monocytes % (Manual) 2.0 % (0.0-7.3) 01/17/20 06:00 Eosinophils % (Manual) 0 % (0.0-4.3) 01/17/20 06:00 Basophils % (Manual) 0 % (0.0-1.8) 01/17/20 06:00 Metamyelocytes % 6.0 % 01/17/20 06:00 Myelocytes % 1.0 % 01/17/20 06:00 Promyelocytes % 0 % 01/17/20 06:00 Blast Cells % 0 % 01/17/20 06:00 Nucleated RBC % Not Reportable 01/17/20 06:00 Seg Neutrophils # 7.3 K/mm3 (1.8-7.7) 01/29/20 07:32 Seg Neutrophils # Man 9.3 K/mm3 (1.8-7.7) H 01/17/20 06:00 Band Neutrophils # 0.0 K/mm3 01/17/20 06:00 Lymphocytes # (Manual) 1.2 K/mm3 (1.2-5.4) 01/17/20 06:00 Abs React Lymphs (Man) 0.0 K/mm3 01/17/20 06:00 Monocytes # (Manual) 0.2 K/mm3 (0.0-0.8) 01/17/20 06:00 Eosinophils # (Manual) 0.0 K/mm3 (0.0-0.4) 01/17/20 06:00 Basophils # (Manual) 0.0 K/mm3 (0.0-0.1) 01/17/20 06:00 Metamyelocytes # 0.7 K/mm3 01/17/20 06:00 Myelocytes # 0.1 K/mm3 01/17/20 06:00 Promyelocytes # 0.0 K/mm3 01/17/20 06:00 Blast Cells # 0.0 K/mm3 01/17/20 06:00 WBC Morphology Not Reportable 01/17/20 06:00 Hypersegmented Neuts Not Reportable 01/17/20 06:00 Hyposegmented Neuts Not Reportable 01/17/20 06:00 Hypogranular Neuts Not Reportable 01/17/20 06:00 Smudge Cells Not Reportable 01/17/20 06:00 Toxic Granulation Not Reportable 01/17/20 06:00 Toxic Vacuolation Not Reportable 01/17/20 06:00 Dohle Bodies Not Reportable 01/17/20 06:00 Pelger-Huet Anomaly Not Reportable 01/17/20 06:00 Shanti Rods Not Reportable 01/17/20 06:00 Platelet Estimate Consistent w auto 01/17/20 06:00 Clumped Platelets Not Reportable 01/17/20 06:00 Plt Clumps, EDTA Not Reportable 01/17/20 06:00 Large Platelets Not Reportable 01/17/20 06:00 Giant Platelets Not Reportable 01/17/20 06:00 Platelet Satelliting Not Reportable 01/17/20 06:00 Plt Morphology Comment Not Reportable 01/17/20 06:00 RBC Morphology Not Reportable 01/17/20 06:00 Dimorphic RBCs Not Reportable 01/17/20 06:00 Polychromasia Not Reportable 01/17/20 06:00 Hypochromasia 1+ 01/17/20 06:00 Poikilocytosis Not Reportable 01/17/20 06:00 Anisocytosis Few 01/17/20 06:00 Microcytosis Not Reportable 01/17/20 06:00 Macrocytosis Not Reportable 01/17/20 06:00 Spherocytes Not Reportable 01/17/20 06:00 Pappenheimer Bodies Not Reportable 01/17/20 06:00 Sickle Cells Not Reportable 01/17/20 06:00 Target Cells Not Reportable 01/17/20 06:00 Tear Drop Cells Few 01/17/20 06:00 Ovalocytes Not Reportable 01/17/20 06:00 Helmet Cells Not Reportable 01/17/20 06:00 [place] Bodies Not Reportable 01/17/20 06:00 [place] Rings Not Reportable 01/17/20 06:00 Franco Cells Not Reportable 01/17/20 06:00 Bite Cells Not Reportable 01/17/20 06:00 Crenated Cell Not Reportable 01/17/20 06:00 Elliptocytes Not Reportable 01/17/20 06:00 Acanthocytes (Spur) Not Reportable 01/17/20 06:00 Rouleaux Not Reportable 01/17/20 06:00 Hemoglobin C Crystals Not Reportable 01/17/20 06:00 Schistocytes Not Reportable 01/17/20 06:00 Malaria parasites Not Reportable 01/17/20 06:00 Gurmeet Bodies Not Reportable 01/17/20 06:00 Hem Pathologist Commnt No 01/17/20 06:00 D-Dimer 1505.14 ng/mlDDU (0-234) H 01/29/20 07:32 ABG pH 7.46 (7.320-7.450) H 01/22/20 03:35 POC ABG pCO2 36.6 mmHg (32.0-48.0) 01/22/20 03:35 ABG pCO2 46.1 mm Hg 01/20/20 04:21 POC ABG pO2 84.0 mmHg (83-108) 01/22/20 03:35 ABG pO2 81.7 mm Hg (80.0-90.0) 01/20/20 04:21 POC ABG HCO3 25.4 01/22/20 03:35 ABG HCO3 26.8 mmol/L (20.0-26.0) H 01/20/20 04:21 ABG O2 Saturation 96.5 % (95.0-99.0) 01/20/20 04:21 ABG O2 Content 14.3 (0.0-44) 01/20/20 04:21 POC ABG Base Excess 1.7 01/22/20 03:35 ABG Base Excess 1.3 mmol/L (-2.0-3.0) 01/20/20 04:21 ABG Hemoglobin 10.4 (12.0-17.5) L 01/22/20 03:35 ABG Oxyhemoglobin 96.8 (94-98) 01/22/20 03:35 ABG Carboxyhemoglobin 1.9 % (0.0-5.0) 01/20/20 04:21 ABG Methemoglobin 0.3 (0.0-1.5) 01/22/20 03:35 Oxyhemoglobin 94.3 % (95.0-99.0) L 01/20/20 04:21 Carboxyhemoglobin 0.8 (0.5-1.5) 01/22/20 03:35 FiO2 30.0 01/22/20 03:35 Sodium 141 mmol/L (137-145) 01/29/20 07:32 Potassium 4.2 mmol/L (3.6-5.0) 01/29/20 07:32 Chloride 99.5 mmol/L (98-107) 01/29/20 07:32 Carbon Dioxide 31 mmol/L (22-30) H 01/29/20 07:32 Anion Gap 15 mmol/L 01/29/20 07:32 BUN 13 mg/dL (7-17) 01/29/20 07:32 Creatinine 0.7 mg/dL (0.6-1.2) 01/29/20 07:32 Estimated GFR > 60 ml/min 01/29/20 07:32 BUN/Creatinine Ratio 19 % 01/29/20 07:32 Glucose 160 mg/dL (65-100) H 01/29/20 07:32 POC Glucose 263 (70-105) H 01/30/20 11:47 Lactic Acid 1.40 mmol/L (0.7-2.0) 01/12/20 07:07 Calcium 9.3 mg/dL (8.4-10.2) 01/29/20 07:32 Magnesium 3.00 mg/dL (1.7-2.3) H 01/15/20 14:35 Ferritin 267.6 ng/mL (10.0-200.0) H 01/26/20 04:43 Total Bilirubin 0.30 mg/dL (0.1-1.2) 01/29/20 07:32 AST 38 units/L (5-40) 01/29/20 07:32 ALT 65 units/L (7-56) H 01/29/20 07:32 Alkaline Phosphatase 120 units/L (35-129) 01/29/20 07:32 Lactate Dehydrogenase 319 units/L (91-180) H 01/26/20 04:43 C-Reactive Protein 6.20 mg/dL (0.00-1.30) H 01/29/20 07:32 Serum Total Protein 6.2 g/dL (6.1-8.1) 01/14/20 Unknown Total Protein 6.0 g/dL (6.3-8.2) L 01/29/20 07:32 Albumin 3.0 g/dL (3.9-5) L 01/29/20 07:32 Albumin/Globulin Ratio 1.0 % 01/29/20 07:32 Wnkii-7-Zhryrzrbk 0.6 g/dL (0.2-0.3) H 01/14/20 Unknown Juukl-4-Jsmtxjhbr 1.1 g/dL (0.5-0.9) H 01/14/20 Unknown Beta Globulins 0.4 g/dL (0.2-0.5) 01/14/20 Unknown Gamma Globulins 0.8 g/dL (0.8-1.7) 01/14/20 Unknown Abnorm Protein Band 1 see below 01/14/20 Unknown PEP Interpretation see below H 01/14/20 Unknown Triglycerides 198 mg/dL (2-149) H 01/18/20 05:00 Procalcitonin 0.34 ng/mL (<0.15) 01/26/20 04:43 TSH 0.221 mlU/mL (0.270-4.200) L 01/15/20 14:35 Free T4 1.23 ng/dL (0.76-1.46) 01/15/20 14:35 Urine Color Yellow (Yellow) 01/11/20 21:50 Urine Turbidity Clear (Clear) 01/11/20 21:50 Urine pH 6.0 (5.0-7.0) 01/11/20 21:50 Ur Specific [place] 1.030 (1.003-1.030) 01/11/20 21:50 Urine Protein >500 mg/dL (Negative) 01/11/20 21:50 Urine Glucose (UA) >=500 mg/dL (Negative) 01/11/20 21:50 Urine Ketones 20 mg/dL (Negative) 01/11/20 21:50 Urine Blood Mod (Negative) 01/11/20 21:50 Urine Nitrite Neg (Negative) 01/11/20 21:50 Urine Bilirubin Neg (Negative) 01/11/20 21:50 Urine Urobilinogen < 2.0 mg/dL (<2.0) 01/11/20 21:50 Ur Leukocyte Esterase Neg (Negative) 01/11/20 21:50 Urine WBC (Auto) 3.0 /HPF (0.0-6.0) 01/11/20 21:50 Urine RBC (Auto) 1.0 /HPF (0.0-6.0) 01/11/20 21:50 U Epithel Cells (Auto) < 1.0 /HPF (0-13.0) 01/11/20 21:50 Urine Bacteria (Auto) 1+ /HPF (Negative) 01/11/20 21:50 CHICA Screen Positive (Negative) H 01/14/20 Unknown Proteinase 3 (PR3) Ab <1.0 AI (<1.0) 01/14/20 Unknown Myeloperoxidase Ab <1.0 AI (<1.0) 01/14/20 Unknown Complement C3 172 mg/dL (83-193) 01/14/20 Unknown Complement C4 76 mg/dL (15-57) H 01/14/20 Unknown Coronavirus (PCR) Positive (Negative) A 01/12/20 09:00 Blood Type B POSITIVE 01/11/20 19:18 Antibody Screen Negative 01/11/20 19:18 De Oliveira/IV: Voiding Method External Female Catheter IV Catheter Type [Right Upper PICC Line arm] IV Catheter Type [Right Hand] INT / Saline Lock IV Catheter Type [Left Forearm INT / Saline Lock ] IV Catheter Type [Right Peripheral IV Antecubital] Active Medications - Current Medications Current Medications: Generic Name Dose Route Start Last Admin Trade Name Freq PRN Reason Stop Dose Admin Acetaminophen 650 mg 01/11/20 18:55 01/30/20 05:20 Tylenol PO 650 mg Q4H PRN Administration Pain MILD(1-3)/Fever >100.5/CORDOVA Albuterol 2 puff 01/29/20 18:40 01/30/20 08:33 Proair IH 2 puff Q4HRT PRN Administration Shortness Of Breath Alprazolam 0.5 mg 01/22/20 12:00 01/28/20 02:51 Xanax PO 0.5 mg Q8H PRN Administration Anxiety Lipase/Protease/Amylase 1 each 01/19/20 18:10 Pancreazxenia Marley 10,500 Unit FEEDTUBE PRN PRN For Clogged Feeding Tube Clonazepam 1 mg 01/22/20 12:00 01/30/20 10:59 Klonopin PO 1 mg BID ASHISH Administration Clonidine HCl 0.1 mg 01/21/20 14:00 01/30/20 11:02 Catapres PO 0.1 mg Q12HR ASHISH Administration Enalaprilat 1.25 mg 01/19/20 17:45 01/20/20 12:42 Vasotec IV 1.25 mg Q6HR PRN Administration Blood Pressure Enoxaparin Sodium 40 mg 01/25/20 22:00 01/29/20 21:41 Enoxaparin SUB-Q 40 mg QDAY@2200 ASHISH Administration Famotidine 20 mg 01/21/20 10:00 01/30/20 10:58 Pepcid PO 20 mg BID ASHISH Administration Hydralazine HCl 10 mg 01/19/20 16:33 01/28/20 20:03 Apresoline IV 10 mg Q4HR PRN Administration SBP >160 Hydralazine HCl 100 mg 01/20/20 16:07 01/30/20 13:37 Apresoline PO 100 mg Q8HR ASHISH Administration Hydromorphone HCl 0.25 mg 01/11/20 18:59 01/26/20 21:15 Dilaudid IV 0.25 mg Q4H PRN Administration Pain, Moderate (4-6) Hydrophilic Ointment 1 applic 01/13/20 01:52 Vaseline Lip Therapy TP Q2HR PRN Dry Lips Insulin Glargine 15 units 01/24/20 10:00 01/30/20 11:13 Lantus SUB-Q 15 units DAILY ASHISH Administration Insulin Human Lispro 0 unit 01/25/20 12:00 01/30/20 13:29 Humalog SUB-Q 6 unit Q6HR ASHISH Administration Protocol Labetalol HCl 10 mg 01/19/20 16:54 01/29/20 21:59 Labetalol IV 10 mg Q6H PRN Administration Blood Pressure Multi-Ingred Cream/Lotion/Oil/Oint 1 applic 01/13/20 01:52 Artificial Tears Ophth Oint OU Q4HR PRN Dry Eye(s) Ondansetron HCl 4 mg 01/11/20 18:55 Zofran IV Q8H PRN Nausea And Vomiting Phenol 1 spray 01/28/20 06:29 01/28/20 10:04 Chloraseptic MM 1 spray PRN PRN Administration Sore Throat Quetiapine Fumarate 300 mg 01/24/20 15:00 01/30/20 10:57 Seroquel PO 300 mg BID ASHISH Administration Simple Syrup 15 ml 01/19/20 18:10 Simple Syrup FEEDTUBE PRN PRN Hypoglycemia Simple Syrup 30 ml 01/19/20 18:10 Simple Syrup FEEDTUBE PRN PRN Hypoglycemia Sodium Bicarbonate 325 mg 01/19/20 18:10 Sodium Bicarbonate FEEDTUBE PRN PRN For Clogged Feeding Tube Sodium Chloride 10 ml 01/11/20 22:00 01/30/20 11:12 Sodium Chloride Flush Syringe 10 Ml IV 10 ml BID ASHISH Administration Sodium Chloride 10 ml 01/11/20 18:55 Sodium Chloride Flush Syringe 10 Ml IV PRN PRN LINE FLUSH Nutrition/Malnutrition Assess - Dietary Evaluation Nutrition/Malnutrition Findings: Nutrition Notes Start: 01/13/20 08:58 Freq: Status: Active Protocol: Document 01/28/20 13:52 LM (Rec: 01/28/20 13:57 LM [id number]) Nutrition Notes Initial or Follow up Reassessment Current Diagnosis Diabetes,Sepsis,Respiratory Failure Other Pertinent Diagnosis Pneu Current Diet Glucerna 1.2 at 55ml/hr Labs/Tests POC glu 192 Pertinent Medications Lantus Height 4 ft 11 in Weight 115 kg [place] Body Weight (kg) 43.18 BMI 51.2 Weight Status Morbidly Obese Subjective/Other Information Pt is tolerating TF at goal. Percent of energy/protein needs met: 100%/100% Burn Absent Trauma Absent GI Symptoms None Current % PO Negligible Minimum of two criteria No physical signs of malnutrition #1 Nutrition Diagnosis Inadequate oral intake Diagnosis Progress(for reassessment Continues documentation) Is patient on ventilator? No Is Patient Ambulatory and/or Out of Bed No REE-([facility]-confined to bed) 2090.928 Kcal/Kg value to use for calculation 13 Approximate Energy Requirements Using 1495 kcal/Kg Calculation Used for Recommendations Kcal/kg Additional Notes Protein needs:64-80g (0.8-1g/ kg AdjBW) Fluid needs 1ml/kcal Nutrition Intervention Change Diet Order: TF Nutrition Support: Glucerna 1.2 at 55ml/hr Flush 100 q4h Flush 250 q4h for hypernatremia Kcal 1,584 Protein (gm) 79 Fluid (mL) 1,062 Goal #1 TF tolerance Goal #2 Meet at least 80% of energy and protein needs via TF Anticipated Discharge Needs: Unable to determine at this time. Follow-Up By: 02/01/20 Additional Comments F/U for TF tolerance
--- NOTE | 2020-01-30 16:43 | Vascular Lab Report ---
DUPLEX DOPPLER UPPER EXTREMITY VENOUS, BILATERAL INDICATION / CLINICAL INFORMATION: Shortness of breath with history of CABG 19 and arm swelling. TECHNIQUE: Duplex doppler imaging was performed through the veins of the right and left upper extremity using ve nous compression and other maneuvers. COMPARISON: None available. FINDINGS: RIGHT INTERNAL JUGULAR VEIN: Negative. RIGHT SUBCLAVIAN VEIN: Negative. RIGHT AXILLARY VEIN: Negative. RIGHT BRACHIAL VEIN: Negative. RIGHT FOREARM VEINS: Negative. RIGHT BASILIC VEIN (SUPERFICIAL): Negative. LEFT INTERNAL JUGULAR VEIN: Negative. LEFT SUBCLAVIAN VEIN: Negative. LEFT AXILLARY VEIN: Negative. LEFT BRACHIAL VEIN: Negative. LEFT FOREARM VEINS: Negative. LEFT BASILIC VEIN (SUPERFICIAL): Negative. ADDITIONAL FINDINGS: Small 1.4 x 0.6 cm fluid collection near antecubital crease could represent a se kali or small abscess. IMPRESSION: 1. No sonographic evidence for DVT in the right or left upper extremity. 2. Possible small abscess or seroma right antecubital fossa Signer Name: Silvio Pruitt MD Signed: 01/30/2020 4:39 PM Workstation Name: [id number]
[2020-01-30] MEDS: METOPROLOL SUCCINATE XL 25 MG TAB PO SCH (18:09)
--- NOTE | 2020-01-30 21:17 | XRay Report ---
ABDOMEN 1 VIEW(S) 01/30/2020 7:59 PM INDICATION: to verify NGT placement. COMPARISON: 01/28/2020 FINDINGS: The tip of the nasogastric tube projects over the gastric lumen in appropriate position. Mild bibasil ar pulmonary opacities are similar. Signer Name: Chan Pérez MD Signed: 01/30/2020 9:13 PM Workstation Name: [id number]
[2020-01-30] MEDS: ENOXAPARIN 40 MG/0.4 ML INJ SUB-Q SCH (23:53)
[2020-01-31] MEDS: INSULIN LISPRO 100 UNIT/ML VIAL 3 mL SUB-Q SCH ×5 (00:18→23:31)
[2020-01-31] MEDS: hydrALAZINE 25 MG TAB PO SCH ×3 (05:56→21:31)
[2020-01-31] MEDS: QUEtiapine 200 MG TAB PO SCH ×2 (10:04→21:32)
[2020-01-31] MEDS: METOPROLOL SUCCINATE XL 25 MG TAB PO SCH (10:05)
[2020-01-31] MEDS: FAMOTIDINE 20 MG TAB PO SCH ×2 (10:05→21:31)
[2020-01-31] MEDS: clonazePAM 0.5 MG TAB PO SCH ×2 (10:05→21:32)
[2020-01-31] MEDS: cloNIDine 0.1 MG TAB PO SCH ×2 (10:05→21:31)
[2020-01-31] MEDS: INSULIN GLARGINE 100 UNITS/ML SUB-Q SCH (10:26)
--- NOTE | 2020-01-31 11:14 | Progress Note ---
<MONICA LINTON - Last Filed: 01/31/20 11:13> Assessment and Plan Sinus bradycardia, resolved. Now with intermittent physiologic sinus tachycardia TSH 0.221 COVID -19 viral pneumonia Respiratory failure Diabetes No specific treatment indicated for physiologic sinus tachycardia. The presence of intermittent sinus tachycardia is a positive finding that shows that her previous bradycardia was not due to sinus node malfunction. Conservative cardiac management. We will follow intermittently. Subjective Date of service: 01/31/20 Principal diagnosis: Ac. hypoxemic resp failure; COVID infection; PNA; ARACELI; Thrombocytopenia Interval history: Sinus tachycardia on telemetry. Objective Vital Signs Temp Pulse Resp BP Pulse Ox 01/31/20 06:39 97.8 F 116 H 28 H 123/68 99 01/31/20 05:56 109 H 123/60 01/31/20 05:53 109 H 99 01/31/20 05:52 98.6 F 109 H 123/60 96 01/30/20 23:51 104 H 173/94 01/30/20 22:37 97.7 F 107 H 26 H 173/94 96 01/30/20 21:17 100 01/30/20 18:09 124 H 139/75 01/30/20 16:36 98.5 F 124 H 26 H 139/75 99 01/30/20 13:37 163/77 01/30/20 11:31 99.1 F 123 H 26 H 163/77 100 - Physical Examination Cardiac: Positive: Tachycardia - Allied health notes Allied health notes reviewed: RT <HAIR RHODES - Last Filed: 01/31/20 21:00> Assessment and Plan - Patient Problems (1) Pneumonia Current Visit: Yes Status: Acute (2) Acute hypoxemic respiratory failure Current Visit: Yes Status: Acute Subjective Interval history: I SAW THIS PT & AGREE WITH THE Dx & Tx PLAN Objective Vital Signs Temp Pulse Resp BP Pulse Ox 01/31/20 16:17 98.8 F 107 H 20 174/93 97 01/31/20 14:30 97 01/31/20 11:18 99.7 F H 110 H 22 122/67 99 01/31/20 06:39 97.8 F 116 H 28 H 123/68 99 01/31/20 05:56 109 H 123/60 01/31/20 05:53 109 H 99 01/31/20 05:52 98.6 F 109 H 123/60 96 01/30/20 23:51 104 H 173/94 01/30/20 22:37 97.7 F 107 H 26 H 173/94 96 01/30/20 21:17 100
--- NOTE | 2020-01-31 14:05 | Progress Note ---
Assessment and Plan Cultures: Blood culture 01/11/2020 no growth today Urine culture 01/11/2020 10-100,000 normal skin cristina Tracheal aspirate a 01/13/2020 no growth 01/22/2020 Blood culture: no growth A/P: 39-year-old female past medical history morbid obesity, diabetes admitted with severe COVID-19 pneumonia. #Sepsis: secondary to COVID-19 pneumonia. New fever being worked up. No clear source found yet. #Acute hypoxemic respiratory failure: Likely secondary to COVID-19 infection. Extubated 01/24/2020. #COVID-19 pneumonia: Very high d-dimer on admission. Completed ceftriaxone. Completed Remdesivir. Completed steroids 01/25/2020. #Morbid obesity: BMI=52. Associated with worse COVID-19 outcomes #Transaminitis: Likely related to COVID-19 #ARACELI: Resolved #Bradycardia: Resolved. Recs: -anticoagulation per protocol based on d-dimer -continue supportive care and oxygen weaning. May need to be discharged with oxygen Lynn Song MD, FACP [facility] C: [phone] O: [phone] F: [phone] Subjective Date of service: 01/31/20 Principal diagnosis: Ac. hypoxemic resp failure; COVID infection; PNA; ARACELI; Thrombocytopenia Interval history: No fever. Remains on oxygen by [place]. Objective - Exam Narrative Exam: Physical Exam (reviewed in chart due to PPE conservation and minimize risk of transmission) Constitutional: limited due to PPE conservation strategy Head, Ears, Nose: limited due to PPE conservation strategy Eyes: limited due to PPE conservation strategy Neck: limited due to PPE conservation strategy Oral: limited due to PPE conservation strategy Cardiovascular: limited due to PPE conservation strategy Respiratory: limited due to PPE conservation strategy GI: limited due to PPE conservation strategy Musculoskeletal: limited due to PPE conservation strategy Skin: limited due to PPE conservation strategy Hem/Lymphatic: limited due to PPE conservation strategy Psych: limited due to PPE conservation strategy Neurological: limited due to PPE conservation strategy - Constitutional Vitals: Vital Signs Temp Pulse Resp BP Pulse Ox 97.8 F 116 H 28 H 123/68 99 01/31/20 06:39 01/31/20 06:39 01/31/20 06:39 01/31/20 06:39 01/31/20 06:39 Temperature -Last 24 Hours Temperature 97.8 F Temperature 98.6 F Temperature 97.7 F Temperature 98.5 F - Labs CBC & Chem 7: 01/29/20 07:32 01/29/20 07:32 Labs: Abnormal lab results 01/30/20 01/30/20 01/31/20 Range/Units 16:49 22:51 06:54 D-Dimer (0-234) ng/mlDDU POC Glucose 229 H 183 H 131 H (70-105) 01/31/20 01/31/20 Range/Units 10:01 11:33 D-Dimer 1262.75 H (0-234) ng/mlDDU POC Glucose 221 H (70-105)
--- NOTE | 2020-01-31 16:20 | Progress Note ---
Assessment and Plan - Patient Problems (1) Sepsis Current Visit: Yes Status: Deleted Qualifiers: Acute respiratory failure type: with hypoxia Plan to address problem: Present on admission Secondary to COVID 19 pneumonia Completed antibiotics Trend CBC (2) Pneumonia due to COVID-19 virus Current Visit: Yes Status: Acute Plan to address problem: Patient was initially diagnosed 8 days prior to admission. Trend inflammatory markers ID following Completed dexamethasone 6 mg for 10 days S/p remdesivir for 4 days and stopped on 01/17/2020 per ID recommendation because of bradycardia Anticoagulation per protocol Contact/isolation protocols Pulmonary hygiene Supplemental oxygenation as needed OOB 3 times daily Prone to sleep as needed (3) Acute hypoxemic respiratory failure Current Visit: Yes Status: Acute Plan to address problem: Secondary to COVID-19 infection S/P mechanical ventilation, extubated 01/23 Patient currently on 3 L nasal cannula Supplemental oxygenation as needed Pulmonary hygiene Pulmonology consult, recommendations appreciated (4) Elevated d-dimer Current Visit: Yes Status: Acute Plan to address problem: 01/12- d-dimer greater than 10,000 01/21 CTA chest negative for pulmonary medicine 01/23 Bilateral lower extremity DVT ruled out D-dimer has been decreasing since down to 451.53 on 01/22 01/25 d-dimer 864.61 01/28 d-dimer 1505.14 01/29 right upper extremity with swelling and heaviness per patient therefore bilateral upper extremity venous Dopplers ordered to rule out DVT which were negative 02/09 d-dimer 1262.75 (5) Obesity hypoventilation syndrome Current Visit: Yes Status: Acute Plan to address problem: Follow-up outpatient for pulmonary function test Secondary to morbid obesity, weight loss counseling (6) Hypertension Current Visit: Yes Status: Chronic Plan to address problem: Antihypertensive regimen: Hydralazine and clonidine PRN labetalol, Vasotec, hydralazine Blood pressure monitoring per protocol 01/29 low-dose metoprolol started for present tachycardia into the 120s which has improved on 01/30 to the low 100s-110s Continue to monitor (7) Diabetes Current Visit: Yes Status: Chronic Plan to address problem: SSI Accu-Cheks AC at bedtime Lantus 15 units daily, 01/30 changed to 8 units BID and we will continue to monitor (8) DVT prophylaxis Current Visit: Yes Status: Acute Plan to address problem: SCDs to bilateral extremities while in bed Lovenox subcu, anticoagulation per COVID-19 protocol (9) Discharge planning issues Current Visit: Yes Status: Acute Plan to address problem: Case management consulted OT/PT recommendations pending 01/24 speech therapy evaluation completed and recommended nectar thickened liquids 01/29 ST reevaluation cleared for pured diet History Interval history: 39 YO Female with MO, Obesity Hypoventilation Syndrome, DM, Asthma presents to ED for evaluation on 01/10 with shortness of breath over the past 3 days with worsening symptoms over the past 1 day with a nonproductive cough, malaise, weakness, fatigue, decreased exercise tolerance, subjective fever and body aches. Patient stated that she tested positive for coronavirus on 01/02 and has experienced worsening symptoms over the past 3 days. EMS was notified and upon arrival the patient was found to be in distress. Patient placed on supplemental oxygen. Patient found to have a pulse oximetry of 80% on room air which is consistent with acute hypoxemic respiratory failure as well as a fever with a temperature of 101.3 F. Patient underwent chest x-ray which revealed bilateral pneumonia which was complicated by sepsis. Patient admitted to medical floor and initiated on pneumonia protocol as well as COVID-19 protocol as well as sepsis protocol. At the time of my examination she states that she feels better however her arms are still heavy. However acute DVT has been ruled out in bilateral upper extremities. Patient still remains tachycardic despite being on a low-dose beta anthony. Patient is requesting for diet to be advanced however will hold off until ST clears her for advancement. 01/16/2020; patient is still on mechanical ventilation FiO2 40, PEEP 14, patient is on fentanyl, Versed, propofol. Patient proned. We will continue to monitor. Patient is off IV antibiotics. Treated for 5 days with IV ceftriaxone. ID, nephrology and pulmonary consult appreciated 01/17/2020; patient is still on mechanical ventilation FiO2 40, PEEP 14, patient is on fentanyl, Versed, propofol. Patient proned. We will continue to monitor. Patient is off IV antibiotics. Treated for 5 days with IV ceftriaxone. ID, nephrology and pulmonary consult appreciated. Patient has elevated sodium level and advised to increase free water intake through the NG tube feeding. 01/18/2020; patient is still on mechanical ventilation with FiO2 of 40 and PEEP of 14 patient is on fentanyl and Versed for sedation. Patient is on dexamethasone day 7 and probably severe was stopped yesterday after fourth dose per ID recommendation, patient is bradycardic. Cardiology was consulted and recommend to follow her closely. If heart rates below 40 we want to give her atropine. I discussed the management plan with her father Mr. Baxter in detail at [phone]. Mr. Baxter said his daughter was suffering from asthma and bipolar disorder. 01/19/20; patient is on mechanical ventilation FiO2 of 35 and PEEP of 8, patient is on fentanyl and Versed for sedation. Patient is on dexamethasone day 8. From the severe discontinued after she took for 4 days per ID recommendation due to bradycardia. Cardiology and nephrology consult appreciated. Discussed with her father in detail about the management plan on 01/18/2020. Continue with the same management. Vent management as per horseradish maker. 01/19 patient remains on vent, on FiO2 of 30% and PEEP of 8. She is on Diprivan and fentanyl. Per discussion with RN ,patient is anxious and intermittently agitated. Patient is awake and alert. Unable to perform review of systems secondary to patient being intubated. All interdisciplinary notes reviewed Lab results reviewed 01/20 no acute events overnight, groggy secondary to sedation, opens eyes to verbal stimulus, yesterday's events noted, BP now well controlled with heart rate also in the normal range. Will adjust blood pressure medication 01/22/20 no acute events overnight, opens eyes to verbal stimulus, yesterday's events n oted, BP now well controlled with heart rate also in the normal range. Will adjust blood pressure medication 01/23/2020--patient being weaned so that he can be extubated 01/24/2020 patient extubated today 01/25/2020 patient on BiPAP 01/26/2020 patient still on oxygen 01/27/2020 patient still on high flow oxygen about 30 L 01/28/2020 patient is down to 3 L nasal cannula oxygen and feeling better 01/28: d-dimer elevated to 1505 from 864, patient is already on anticoagulation per Covid protocol. PLATEMAN attempted to contact patient's family members for an update however the call went to voicemail and her voicemail mailbox is not set up. 01/29: Remains on supplemental oxygenation, elevated [id number] upper extremity Doppler ultrasound negative for DVT, PT recommends rolling walker at discharge, ST evaluation cleared patient for pured diet with thin liquids. Hospitalist Physical - Constitutional Vitals: Temp Pulse Resp BP Pulse Ox 97.8 F 116 H 28 H 123/68 97 01/31/20 06:39 01/31/20 06:39 01/31/20 06:39 01/31/20 06:39 01/31/20 14:30 General appearance: Present: no acute distress, well-nourished, obese - EENT Eyes: Present: PERRL, EOM intact ENT: hearing intact, clear oral mucosa - Neck Neck: Present: supple, normal ROM - Respiratory Respiratory effort: normal Respiratory: bilateral: diminished - Cardiovascular Rhythm: regular Heart Sounds: Present: S1 & S2. Absent: systolic murmur, diastolic murmur - Extremities Extremities: no ischemia, pulses intact, pulses symmetrical, No edema, normal temperature, normal color, Full ROM - Abdominal General gastrointestinal: soft, non-tender, non-distended, normal bowel sounds - Integumentary Integumentary: Present: clear, warm, dry - Psychiatric Psychiatric: appropriate mood/affect, cooperative - Neurologic Neurologic: CNII-XII intact, no focal deficits, moves all extremities - Allied Health Allied health notes reviewed: nursing, PT, ST, OT, RT, social work, case management Results - Labs CBC & Chem 7: 01/29/20 07:32 01/29/20 07:32 Labs: Laboratory Last Values WBC 10.4 K/mm3 (4.5-11.0) 01/29/20 07:32 RBC 3.55 M/mm3 (3.65-5.03) L 01/29/20 07:32 Hgb 8.9 gm/dl (10.1-14.3) L 01/29/20 07:32 Hct 26.9 % (30.3-42.9) L 01/29/20 07:32 MCV 76 fl (79-97) L 01/29/20 07:32 MCH 25 pg (28-32) L 01/29/20 07:32 MCHC 33 % (30-34) 01/29/20 07:32 RDW 15.1 % (13.2-15.2) 01/29/20 07:32 Plt Count 361 K/mm3 (140-440) 01/29/20 07:32 Lymph % (Auto) 19.2 % (13.4-35.0) 01/29/20 07:32 [place] % (Auto) 7.1 % (0.0-7.3) 01/29/20 07:32 Eos % (Auto) 2.7 % (0.0-4.3) 01/29/20 07:32 Baso % (Auto) 0.6 % (0.0-1.8) 01/29/20 07:32 Lymph # (Auto) 2.0 K/mm3 (1.2-5.4) 01/29/20 07:32 [place] # (Auto) 0.7 K/mm3 (0.0-0.8) 01/29/20 07:32 Eos # (Auto) 0.3 K/mm3 (0.0-0.4) 01/29/20 07:32 Baso # (Auto) 0.1 K/mm3 (0.0-0.1) 01/29/20 07:32 Add Manual Diff Complete 01/17/20 06:00 Total Counted 100 01/17/20 06:00 Seg Neutrophils % 70.4 % (40.0-70.0) H 01/29/20 07:32 Seg Neuts % (Manual) 81.0 % (40.0-70.0) H 01/17/20 06:00 Band Neutrophils % 0 % 01/17/20 06:00 Lymphocytes % (Manual) 10.0 % (13.4-35.0) L 01/17/20 06:00 Reactive Lymphs % (Man) 0 % 01/17/20 06:00 Monocytes % (Manual) 2.0 % (0.0-7.3) 01/17/20 06:00 Eosinophils % (Manual) 0 % (0.0-4.3) 01/17/20 06:00 Basophils % (Manual) 0 % (0.0-1.8) 01/17/20 06:00 Metamyelocytes % 6.0 % 01/17/20 06:00 Myelocytes % 1.0 % 01/17/20 06:00 Promyelocytes % 0 % 01/17/20 06:00 Blast Cells % 0 % 01/17/20 06:00 Nucleated RBC % Not Reportable 01/17/20 06:00 Seg Neutrophils # 7.3 K/mm3 (1.8-7.7) 01/29/20 07:32 Seg Neutrophils # Man 9.3 K/mm3 (1.8-7.7) H 01/17/20 06:00 Band Neutrophils # 0.0 K/mm3 01/17/20 06:00 Lymphocytes # (Manual) 1.2 K/mm3 (1.2-5.4) 01/17/20 06:00 Abs React Lymphs (Man) 0.0 K/mm3 01/17/20 06:00 Monocytes # (Manual) 0.2 K/mm3 (0.0-0.8) 01/17/20 06:00 Eosinophils # (Manual) 0.0 K/mm3 (0.0-0.4) 01/17/20 06:00 Basophils # (Manual) 0.0 K/mm3 (0.0-0.1) 01/17/20 06:00 Metamyelocytes # 0.7 K/mm3 01/17/20 06:00 Myelocytes # 0.1 K/mm3 01/17/20 06:00 Promyelocytes # 0.0 K/mm3 01/17/20 06:00 Blast Cells # 0.0 K/mm3 01/17/20 06:00 WBC Morphology Not Reportable 01/17/20 06:00 Hypersegmented Neuts Not Reportable 01/17/20 06:00 Hyposegmented Neuts Not Reportable 01/17/20 06:00 Hypogranular Neuts Not Reportable 01/17/20 06:00 Smudge Cells Not Reportable 01/17/20 06:00 Toxic Granulation Not Reportable 01/17/20 06:00 Toxic Vacuolation Not Reportable 01/17/20 06:00 Dohle Bodies Not Reportable 01/17/20 06:00 Pelger-Huet Anomaly Not Reportable 01/17/20 06:00 Shanti Rods Not Reportable 01/17/20 06:00 Platelet Estimate Consistent w auto 01/17/20 06:00 Clumped Platelets Not Reportable 01/17/20 06:00 Plt Clumps, EDTA Not Reportable 01/17/20 06:00 Large Platelets Not Reportable 01/17/20 06:00 Giant Platelets Not Reportable 01/17/20 06:00 Platelet Satelliting Not Reportable 01/17/20 06:00 Plt Morphology Comment Not Reportable 01/17/20 06:00 RBC Morphology Not Reportable 01/17/20 06:00 Dimorphic RBCs Not Reportable 01/17/20 06:00 Polychromasia Not Reportable 01/17/20 06:00 Hypochromasia 1+ 01/17/20 06:00 Poikilocytosis Not Reportable 01/17/20 06:00 Anisocytosis Few 01/17/20 06:00 Microcytosis Not Reportable 01/17/20 06:00 Macrocytosis Not Reportable 01/17/20 06:00 Spherocytes Not Reportable 01/17/20 06:00 Pappenheimer Bodies Not Reportable 01/17/20 06:00 Sickle Cells Not Reportable 01/17/20 06:00 Target Cells Not Reportable 01/17/20 06:00 Tear Drop Cells Few 01/17/20 06:00 Ovalocytes Not Reportable 01/17/20 06:00 Helmet Cells Not Reportable 01/17/20 06:00 Luevano-Cochran Bodies Not Reportable 01/17/20 06:00 Goff Rings Not Reportable 01/17/20 06:00 Redford Cells Not Reportable 01/17/20 06:00 Bite Cells Not Reportable 01/17/20 06:00 Crenated Cell Not Reportable 01/17/20 06:00 Elliptocytes Not Reportable 01/17/20 06:00 Acanthocytes (Spur) Not Reportable 01/17/20 06:00 Rouleaux Not Reportable 01/17/20 06:00 Hemoglobin C Crystals Not Reportable 01/17/20 06:00 Schistocytes Not Reportable 01/17/20 06:00 Malaria parasites Not Reportable 01/17/20 06:00 Gurmeet Bodies Not Reportable 01/17/20 06:00 Hem Pathologist Commnt No 01/17/20 06:00 D-Dimer 1262.75 ng/mlDDU (0-234) H 01/31/20 10:01 ABG pH 7.46 (7.320-7.450) H 01/22/20 03:35 POC ABG pCO2 36.6 mmHg (32.0-48.0) 01/22/20 03:35 ABG pCO2 46.1 mm Hg 01/20/20 04:21 POC ABG pO2 84.0 mmHg (83-108) 01/22/20 03:35 ABG pO2 81.7 mm Hg (80.0-90.0) 01/20/20 04:21 POC ABG HCO3 25.4 01/22/20 03:35 ABG HCO3 26.8 mmol/L (20.0-26.0) H 01/20/20 04:21 ABG O2 Saturation 96.5 % (95.0-99.0) 01/20/20 04:21 ABG O2 Content 14.3 (0.0-44) 01/20/20 04:21 POC ABG Base Excess 1.7 01/22/20 03:35 ABG Base Excess 1.3 mmol/L (-2.0-3.0) 01/20/20 04:21 ABG Hemoglobin 10.4 (12.0-17.5) L 01/22/20 03:35 ABG Oxyhemoglobin 96.8 (94-98) 01/22/20 03:35 ABG Carboxyhemoglobin 1.9 % (0.0-5.0) 01/20/20 04:21 ABG Methemoglobin 0.3 (0.0-1.5) 01/22/20 03:35 Oxyhemoglobin 94.3 % (95.0-99.0) L 01/20/20 04:21 Carboxyhemoglobin 0.8 (0.5-1.5) 01/22/20 03:35 FiO2 30.0 01/22/20 03:35 Sodium 141 mmol/L (137-145) 01/29/20 07:32 Potassium 4.2 mmol/L (3.6-5.0) 01/29/20 07:32 Chloride 99.5 mmol/L (98-107) 01/29/20 07:32 Carbon Dioxide 31 mmol/L (22-30) H 01/29/20 07:32 Anion Gap 15 mmol/L 01/29/20 07:32 BUN 13 mg/dL (7-17) 01/29/20 07:32 Creatinine 0.7 mg/dL (0.6-1.2) 01/29/20 07:32 Estimated GFR > 60 ml/min 01/29/20 07:32 BUN/Creatinine Ratio 19 % 01/29/20 07:32 Glucose 160 mg/dL (65-100) H 01/29/20 07:32 POC Glucose 221 (70-105) H 01/31/20 11:33 Lactic Acid 1.40 mmol/L (0.7-2.0) 01/12/20 07:07 Calcium 9.3 mg/dL (8.4-10.2) 01/29/20 07:32 Magnesium 3.00 mg/dL (1.7-2.3) H 01/15/20 14:35 Ferritin 267.6 ng/mL (10.0-200.0) H 01/26/20 04:43 Total Bilirubin 0.30 mg/dL (0.1-1.2) 01/29/20 07:32 AST 38 units/L (5-40) 01/29/20 07:32 ALT 65 units/L (7-56) H 01/29/20 07:32 Alkaline Phosphatase 120 units/L (35-129) 01/29/20 07:32 Lactate Dehydrogenase 319 units/L (91-180) H 01/26/20 04:43 C-Reactive Protein 6.20 mg/dL (0.00-1.30) H 01/29/20 07:32 Serum Total Protein 6.2 g/dL (6.1-8.1) 01/14/20 Unknown Total Protein 6.0 g/dL (6.3-8.2) L 01/29/20 07:32 Albumin 3.0 g/dL (3.9-5) L 01/29/20 07:32 Albumin/Globulin Ratio 1.0 % 01/29/20 07:32 Pdmqu-7-Rzliblorw 0.6 g/dL (0.2-0.3) H 01/14/20 Unknown Mozps-4-Fdxokloni 1.1 g/dL (0.5-0.9) H 01/14/20 Unknown Beta Globulins 0.4 g/dL (0.2-0.5) 01/14/20 Unknown Gamma Globulins 0.8 g/dL (0.8-1.7) 01/14/20 Unknown Abnorm Protein Band 1 see below 01/14/20 Unknown PEP Interpretation see below H 01/14/20 Unknown Triglycerides 198 mg/dL (2-149) H 01/18/20 05:00 Procalcitonin 0.34 ng/mL (<0.15) 01/26/20 04:43 TSH 0.221 mlU/mL (0.270-4.200) L 01/15/20 14:35 Free T4 1.23 ng/dL (0.76-1.46) 01/15/20 14:35 Urine Color Yellow (Yellow) 01/11/20 21:50 Urine Turbidity Clear (Clear) 01/11/20 21:50 Urine pH 6.0 (5.0-7.0) 01/11/20 21:50 Ur Specific [place] 1.030 (1.003-1.030) 01/11/20 21:50 Urine Protein >500 mg/dL (Negative) 01/11/20 21:50 Urine Glucose (UA) >=500 mg/dL (Negative) 01/11/20 21:50 Urine Ketones 20 mg/dL (Negative) 01/11/20 21:50 Urine Blood Mod (Negative) 01/11/20 21:50 Urine Nitrite Neg (Negative) 01/11/20 21:50 Urine Bilirubin Neg (Negative) 01/11/20 21:50 Urine Urobilinogen < 2.0 mg/dL (<2.0) 01/11/20 21:50 Ur Leukocyte Esterase Neg (Negative) 01/11/20 21:50 Urine WBC (Auto) 3.0 /HPF (0.0-6.0) 01/11/20 21:50 Urine RBC (Auto) 1.0 /HPF (0.0-6.0) 01/11/20 21:50 U Epithel Cells (Auto) < 1.0 /HPF (0-13.0) 01/11/20 21:50 Urine Bacteria (Auto) 1+ /HPF (Negative) 01/11/20 21:50 CHICA Screen Positive (Negative) H 01/14/20 Unknown Proteinase 3 (PR3) Ab <1.0 AI (<1.0) 01/14/20 Unknown Myeloperoxidase Ab <1.0 AI (<1.0) 01/14/20 Unknown Complement C3 172 mg/dL (83-193) 01/14/20 Unknown Complement C4 76 mg/dL (15-57) H 01/14/20 Unknown Coronavirus (PCR) Positive (Negative) A 01/12/20 09:00 Blood Type B POSITIVE 01/11/20 19:18 Antibody Screen Negative 01/11/20 19:18 De Oliveira/IV: Voiding Method Bedside Commode IV Catheter Type [Right Upper PICC Line arm] IV Catheter Type [Right Hand] INT / Saline Lock IV Catheter Type [Left Forearm INT / Saline Lock ] IV Catheter Type [Right Peripheral IV Antecubital] Active Medications - Current Medications Current Medications: Generic Name Dose Route Start Last Admin Trade Name Freq PRN Reason Stop Dose Admin Acetaminophen 650 mg 01/11/20 18:55 01/30/20 05:20 Tylenol PO 650 mg Q4H PRN Administration Pain MILD(1-3)/Fever >100.5/CORDOVA Albuterol 2 puff 01/29/20 18:40 01/30/20 08:33 Proair IH 2 puff Q4HRT PRN Administration Shortness Of Breath Alprazolam 0.5 mg 01/22/20 12:00 01/28/20 02:51 Xanax PO 0.5 mg Q8H PRN Administration Anxiety Lipase/Protease/Amylase 1 each 01/19/20 18:[address] 10,500 Unit FEEDTUBE PRN PRN For Clogged Feeding Tube Clonazepam 1 mg 01/22/20 12:00 01/31/20 10:05 Klonopin PO 1 mg BID ASHISH Administration Clonidine HCl 0.1 mg 01/21/20 14:00 01/31/20 10:05 Catapres PO 0.1 mg Q12HR ASHISH Administration Enalaprilat 1.25 mg 01/19/20 17:45 01/20/20 12:42 Vasotec IV 1.25 mg Q6HR PRN Administration Blood Pressure Enoxaparin Sodium 40 mg 01/25/20 22:00 01/30/20 23:53 Enoxaparin SUB-Q 40 mg QDAY@2200 ASHISH Administration Famotidine 20 mg 01/21/20 10:00 01/31/20 10:05 Pepcid PO 20 mg BID ASHISH Administration Hydralazine HCl 10 mg 01/19/20 16:33 01/28/20 20:03 Apresoline IV 10 mg Q4HR PRN Administration SBP >160 Hydralazine HCl 100 mg 01/20/20 16:07 01/31/20 05:56 Apresoline PO 100 mg Q8HR ASHISH Administration Hydromorphone HCl 0.25 mg 01/11/20 18:59 01/26/20 21:15 Dilaudid IV 0.25 mg Q4H PRN Administration Pain, Moderate (4-6) Hydrophilic Ointment 1 applic 01/13/20 01:52 Vaseline Lip Therapy TP Q2HR PRN Dry Lips Insulin Glargine 15 units 01/24/20 10:00 01/31/20 10:26 Lantus SUB-Q 15 units DAILY ASHISH Administration Insulin Human Lispro 0 unit 01/25/20 12:00 01/31/20 11:25 Humalog SUB-Q 4 unit Q6HR ASHISH Administration Protocol Labetalol HCl 10 mg 01/19/20 16:54 01/29/20 21:59 Labetalol IV 10 mg Q6H PRN Administration Blood Pressure Metoprolol Succinate 25 mg 01/30/20 17:00 01/31/20 10:05 Metoprolol Xl PO 25 mg QDAY ASHISH Administration Multi-Ingred Cream/Lotion/Oil/Oint 1 applic 01/13/20 01:52 Artificial Tears Ophth Oint OU Q4HR PRN Dry Eye(s) Ondansetron HCl 4 mg 01/11/20 18:55 Zofran IV Q8H PRN Nausea And Vomiting Phenol 1 spray 01/28/20 06:29 01/28/20 10:04 Chloraseptic MM 1 spray PRN PRN Administration Sore Throat Quetiapine Fumarate 300 mg 01/24/20 15:00 01/31/20 10:04 Seroquel PO Not Given BID ASHISH Simple Syrup 15 ml 01/19/20 18:10 Simple Syrup FEEDTUBE PRN PRN Hypoglycemia Simple Syrup 30 ml 01/19/20 18:10 Simple Syrup FEEDTUBE PRN PRN Hypoglycemia Sodium Bicarbonate 325 mg 01/19/20 18:10 Sodium Bicarbonate FEEDTUBE PRN PRN For Clogged Feeding Tube Sodium Chloride 10 ml 01/11/20 22:00 01/31/20 10:05 Sodium Chloride Flush Syringe 10 Ml IV 10 ml BID ASHISH Administration Sodium Chloride 10 ml 01/11/20 18:55 Sodium Chloride Flush Syringe 10 Ml IV PRN PRN LINE FLUSH Nutrition/Malnutrition Assess - Dietary Evaluation Nutrition/Malnutrition Findings: Nutrition Notes Start: 01/13/20 08:58 Freq: Status: Active Protocol: Document 01/31/20 12:41 JAMES (Rec: 01/31/20 13:14 JAMES [id number]) Nutrition Notes Initial or Follow up Reassessment Current Diagnosis Diabetes,Sepsis,Respiratory Failure Other Pertinent Diagnosis Pneu Current Diet Pureed Labs/Tests POC BG 221 Pertinent Medications Humalog Lantus Height 4 ft 11 in Weight 116.3 kg [place] Body Weight (kg) 43.18 BMI 51.7 Weight Status Morbidly Obese Subjective/Other Information Consult to assess caloric intake. Pt TF stopped due to diet advancement. Pt on pureed with thin liq per ENVIRONMENTAL AIDE. Pt reports eating spoonfuls of meals. Percent of energy/protein needs met: 0%/0% Burn Absent Trauma Absent GI Symptoms None Current % PO Negligible Minimum of two criteria No physical signs of malnutrition #1 Nutrition Diagnosis Inadequate oral intake Etiology swallowing difficulty As Evidenced by Signs and Symptoms pt eating bites of pureed diet Diagnosis Progress(for reassessment Improved documentation) Is patient on ventilator? No Is Patient Ambulatory and/or Out of Bed No REE-([place]-confined to bed) 2106.504 Kcal/Kg value to use for calculation 13 Approximate Energy Requirements Using 1512 kcal/Kg Calculation Used for Recommendations Kcal/kg Additional Notes Protein needs:64-80g (0.8-1g/ kg AdjBW) Fluid needs 1ml/kcal Nutrition Intervention Change Diet Order: Pureed Nutrition Support: D/C Add Supplement/Snack (indicate name/kcal Glucerna Chocolate BID /protein ) Provides kCal: 440 Provides Protein (gm) 20 Goal #1 Meet at least 80% of energy and protein needs via TF Anticipated Discharge Needs: Unable to determine at this time. Follow-Up By: 02/04/20 Additional Comments F/U for PO and ONS intakes/ tolerance
[2020-01-31] MEDS: ENOXAPARIN 40 MG/0.4 ML INJ SUB-Q SCH (21:31)
[2020-02-01] MEDS: hydrALAZINE 25 MG TAB PO SCH (05:55)
[2020-02-01] MEDS: INSULIN LISPRO 100 UNIT/ML VIAL 3 mL SUB-Q SCH ×2 (05:55→12:53)
[2020-02-01] MEDS: INSULIN GLARGINE 100 UNITS/ML SUB-Q SCH ×2 (08:18→10:43)
[2020-02-01] MEDS: clonazePAM 0.5 MG TAB PO SCH (09:38)
[2020-02-01] MEDS: QUEtiapine 200 MG TAB PO SCH (09:38)
[2020-02-01] MEDS: METOPROLOL SUCCINATE XL 25 MG TAB PO SCH (09:39)
[2020-02-01] MEDS: cloNIDine 0.1 MG TAB PO SCH (09:40)
[2020-02-01] MEDS: FAMOTIDINE 20 MG TAB PO SCH (12:40)
--- NOTE | 2020-02-01 13:19 | Progress Note ---
Assessment and Plan Cultures: Blood culture 01/11/2020 no growth today Urine culture 01/11/2020 10-100,000 normal skin cristina Tracheal aspirate a 01/13/2020 no growth 01/22/2020 Blood culture: no growth A/P: 39-year-old female past medical history morbid obesity, diabetes admitted with severe COVID-19 pneumonia. #Sepsis: secondary to COVID-19 pneumonia. New fever being worked up. No clear source found yet. #Acute hypoxemic respiratory failure: Likely secondary to COVID-19 infection. Extubated 01/24/2020. #COVID-19 pneumonia: Very high d-dimer on admission. Completed ceftriaxone. Completed Remdesivir. Completed steroids 01/25/2020. #Morbid obesity: BMI=52. Associated with worse COVID-19 outcomes #Transaminitis: Likely related to COVID-19 #ARACELI: Resolved #Bradycardia: Resolved. Recs: -anticoagulation per protocol based on d-dimer -if she is discharged on home oxygen, please arrange follow up with PCP or pulmonary clinic ID will sign off. Please call with questions. Lynn Song MD, FACP [facility] ([facility] C: [phone] O: [phone] F: [phone] Subjective Date of service: 02/01/20 Principal diagnosis: Ac. hypoxemic resp failure; COVID infection; PNA; ARACELI; Thrombocytopenia Interval history: No fever. Oxygen weaned off at rest. Objective - Exam Narrative Exam: Physical Exam (reviewed in chart due to PPE conservation and minimize risk of transmission) Constitutional: limited due to PPE conservation strategy Head, Ears, Nose: limited due to PPE conservation strategy Eyes: limited due to PPE conservation strategy Neck: limited due to PPE conservation strategy Oral: limited due to PPE conservation strategy Cardiovascular: limited due to PPE conservation strategy Respiratory: limited due to PPE conservation strategy GI: limited due to PPE conservation strategy Musculoskeletal: limited due to PPE conservation strategy Skin: limited due to PPE conservation strategy Hem/Lymphatic: limited due to PPE conservation strategy Psych: limited due to PPE conservation strategy Neurological: limited due to PPE conservation strategy - Constitutional Vitals: Vital Signs Temp Pulse Resp BP Pulse Ox 98.6 F 104 H 20 145/78 94 02/01/20 05:42 02/01/20 09:40 02/01/20 05:42 02/01/20 09:40 02/01/20 08:58 Temperature -Last 24 Hours Temperature 98.6 F Temperature 98.0 F Temperature 98.8 F - Labs CBC & Chem 7: 01/29/20 07:32 01/29/20 07:32 Labs: Abnormal lab results 01/31/20 01/31/20 02/01/20 Range/Units 16:33 22:47 05:57 POC Glucose 294 H 141 H 127 H (70-105) 02/01/20 Range/Units 11:31 POC Glucose 275 H (70-105)
--- NOTE | 2020-02-01 13:21 | Discharge Summary ---
Providers - Providers Date of Admission: 01/11/20 18:52 Attending physician: ALINA THOMPSON MD 01/13/20 01:52 Consult to Dietitian/Nutrition [CONS] Routine Physician Instructions: Reason For Exam: Reason for Consult: Evaluate nutritional intake 01/13/20 10:06 Consult to Physician [CONS] Stat Comment: Consulting Provider: SUSSY URENA Physician Instructions: Reason For Exam: sepsis 01/13/20 10:49 Consult to Physician [CONS] Routine Comment: Consulting Provider: KERRI TILLEY Physician Instructions: Reason For Exam: critical care 01/13/20 11:28 Consult to Dietitian/Nutrition [CONS] Routine Physician Instructions: Reason For Exam: Reason for Consult: Write/Manage Tube Feeding 01/13/20 12:47 Consult to Dietitian/Nutrition [CONS] Stat Physician Instructions: Reason For Exam: Reason for Consult: Write/Manage Tube Feeding 01/14/20 09:50 Consult to Physician [CONS] Routine Comment: Consulting Provider: NAHUM CLARK Physician Instructions: Reason For Exam: ARACELI 01/15/20 10:41 PICC Line Insertion [Consult to PICC Line RN] [CONS] Stat Reason For Exam: multiple meds Type Line:: PICC 01/22/20 09:37 Consult to Wound/ET Nurse [CONS] Stat Reason For Exam: wound eval face cheek and chin 01/24/20 08:00 Speech Therapy Evaluation and Treat [CONS] Routine Reason For Exam: post extubation 01/28/20 11:55 Occupational Therapy Evaluate and Treat [CONS] Routine Comment: Reason For Exam: generalized weakness Physical Therapy Evaluation and Treat [CONS] Routine Comment: Reason For Exam: generalized weakness 01/31/20 08:38 Consult to Dietitian/Nutrition [CONS] Routine Physician Instructions: Reason For Exam: please assess her calorie intake Reason for Consult: Poor oral intake [facility] Condition: Stable Hospital course: 39 YO Female with MO, Obesity Hypoventilation Syndrome, DM, Asthma presents to ED for evaluation on 01/10 with shortness of breath over the past 3 days with worsening symptoms over the past 1 day with a nonproductive cough, malaise, weakness, fatigue, decreased exercise tolerance, subjective fever and body aches. Patient stated that she tested positive for coronavirus on 01/02 and has experienced worsening symptoms over the past 3 days. EMS was notified and upon arrival the patient was found to be in distress. Patient placed on supplemental oxygen. Patient found to have a pulse oximetry of 80% on room air which is consistent with acute hypoxemic respiratory failure as well as a fever with a temperature of 101.3 F. Patient underwent chest x-ray which revealed bilateral pneumonia which was complicated by sepsis. Patient admitted to the CCU and initiated on pneumonia protocol as well as COVID-19 protocol as well as sepsis protocol. She was also intubated at the time of admission. She was treated with IV ceftriaxone, dexamethasone and completed 4/5 days of Remdisiver which was st opped due to bradycardia. She was able to be extubated on 01/23 and was transferred from the CCU to the medical floor with BiPAP. She is now weaned to nasal cannula at 3L. Despite severly elevated ddimers she has not developed an acute DVT or PE. Patient was advanced to a regular diet today. She will be discharged with a month of anticoagulation for elevated ddimer. She will need to follow up with her PCP and pulmanory within 1-2 weeks of discharge. She will be discharged with supplemental oxygenation. Mr. Baxter has been informed of her discharge today. - Patient Problems (1) Sepsis Current Visit: Yes Status: Resolved Qualifiers: Acute respiratory failure type: with hypoxia Plan to address problem: Present on admission Secondary to COVID 19 pneumonia Completed antibiotics (2) Pneumonia due to COVID-19 virus Current Visit: Yes Status: Acute Plan to address problem: Patient was initially diagnosed 8 days prior to admission. Completed dexamethasone 6 mg for 10 days S/p remdesivir for 4 days and stopped on 01/17/2020 per ID recommendation because of bradycardia Patient will be discharged with Eliquis 10 mg daily for 1 month Patient will be discharged with supplemental oxygenation Follow-up with your primary care physician within 1 to 2 weeks of discharge (3) Acute hypoxemic respiratory failure Current Visit: Yes Status: Acute Plan to address problem: Secondary to COVID-19 infection S/P mechanical ventilation, extubated 01/23 Patient currently on 3 L nasal cannula Patient will be discharged with supplemental oxygenation Follow-up with primary care physician and pulmonology outpatient within 1 to 2 weeks of discharge (4) Elevated d-dimer Current Visit: Yes Status: Acute Plan to address problem: 01/12- d-dimer greater than 10,000 01/21 CTA chest negative for pulmonary medicine 01/23 Bilateral lower extremity DVT ruled out D-dimer has been decreasing since down to 451.53 on 01/22 01/25 d-dimer 864.61 01/28 d-dimer 1505.14 01/29 right upper extremity with swelling and heaviness per patient therefore bilateral upper extremity venous Dopplers ordered to rule out DVT which were negative 02/09 d-dimer 1262.75 Will be discharged with anticoagulation for 30 days (5) Obesity hypoventilation syndrome Current Visit: Yes Status: Acute Plan to address problem: Follow-up outpatient for pulmonary function test Secondary to morbid obesity, weight loss counseling (6) Hypertension Current Visit: Yes Status: Chronic Plan to address problem: Continue current antihypertensive regimen Blood pressure monitoring per primary care physician instructions Follow-up with the primary care physician post discharge (7) Diabetes Current Visit: Yes Status: Chronic Plan to address problem: Resume your home anti-diabetic regimen Accu-Cheks per primary care physician instructions Follow-up with your primary care physician post discharge Disposition: DC-01 TO HOME OR SELFCARE Time spent for discharge: 40 Core Measure Documentation - Palliative Care Palliative Care/ Comfort Measures: Not Applicable - Core Measures Any of the following diagnoses?: none Exam - Constitutional Vitals: Temp Pulse Resp BP Pulse Ox 98.6 F 104 H 20 145/78 94 02/01/20 05:42 02/01/20 09:40 02/01/20 05:42 02/01/20 09:40 02/01/20 08:58 General appearance: Present: no acute distress - EENT Eyes: Present: PERRL, EOM intact ENT: hearing intact, clear oral mucosa - Neck Neck: Present: supple, normal ROM - Respiratory Respiratory effort: normal Respiratory: bilateral: diminished - Cardiovascular Rhythm: regular Heart Sounds: Present: S1 & S2. Absent: systolic murmur, diastolic murmur - Extremities Extremities: no ischemia, pulses intact, pulses symmetrical, No edema, normal temperature, normal color, Full ROM - Abdominal General gastrointestinal: Present: soft, non-tender, non-distended, normal bowel sounds - Integumentary Integumentary: Present: clear, warm, dry - Musculoskeletal Musculoskeletal: strength equal bilaterally - Psychiatric Psychiatric: appropriate mood/affect, cooperative - Neurologic Neurologic: CNII-XII intact, no focal deficits, moves all extremities - Allied Health Allied health notes reviewed: nursing, PT, ST, OT, RT, social work, case management Plan Activity: advance as tolerated Diet: low fat, low salt, diabetic Wound: per wound nurse instructions Special Instructions: record daily BP diary, record blood sugar diary, physical therapy, home oxygen via (protable oxygen tank) Durable Medical Equipment Needed Upon Discharge: Oxygen Additional Instructions: Follow-up with your primary care physician within 1 to 2 weeks of discharge. Follow-up with the roll repairer within 1 to 2 weeks of discharge. You will be discharged with anticoagulation for 1 month. You will be discharged with thrombus oxygenation via oxygen tank. You will be given a COVID-19 booklet by your nurse and it is strongly suggested that you follow those instructions. Follow up with: WILLIAN FORTELIVERMORE MD NICKO [Primary Care Provider] - 7 Days KERRI TILLEY MD [Staff Physician] - 7 Days Prescriptions: hydrALAZINE [Apresoline TAB] 100 mg PO Q8HR #90 tablet cloNIDine [Catapres] 0.1 mg PO Q12HR #60 tablet clonazePAM [KlonoPIN] 1 mg PO BID #30 tablet Metoprolol Xl [Metoprolol SUCCINATE ER TAB] 25 mg PO QDAY #30 tablet Famotidine [Pepcid] 20 mg PO BID #60 tablet Albuterol Mdi (or & Nicu Only) [ProAir HFA Inhaler] 2 puff IH Q4HRT PRN #1 inha PRN Reason: Shortness Of Breath QUEtiapine [SEROquel] 300 mg PO BID #60 tablet ALPRAZolam [Xanax TAB] 0.5 mg PO Q8H PRN #14 tablet PRN Reason: Anxiety
[2020-02-01 18:29] VITALS: BP 150/82
== END 2020-02-01 14:55 | disposition home health service (06) | DRG 870 ==
LOC: ED 16:19 → 3A 18:52 → CC1 01-13 00:50 → 3A 01-26 13:21
PROVIDERS: ADMIT Internal Medicine; ATTEND Internal Medicine
PROC: 5A09457 Assistance with Respiratory Ventilation, 24-96 Consecutive Hours, Continuous Positive Airway Pressure (ICD-10-PCS; 2020-01-11)
PROC: 5A1955Z Respiratory Ventilation, Greater than 96 Consecutive Hours (ICD-10-PCS; principal; 2020-01-13)
PROC: 0BH17EZ Insertion of Endotracheal Airway into Trachea, Via Natural or Artificial Opening (ICD-10-PCS; 2020-01-13)
PROC: 4A033R1 Measurement of Arterial Saturation, Peripheral, Percutaneous Approach (ICD-10-PCS; 2020-01-13)
PROC: XW033E5 Introduction of Remdesivir Anti-infective into Peripheral Vein, Percutaneous Approach, New Technology Group 5 (ICD-10-PCS; 2020-01-14)
PROC: 02HV33Z Insertion of Infusion Device into Superior Vena Cava, Percutaneous Approach (ICD-10-PCS; 2020-01-15)
PROC: 5A09457 Assistance with Respiratory Ventilation, 24-96 Consecutive Hours, Continuous Positive Airway Pressure (ICD-10-PCS; 2020-01-23)
DX: A41.89 Other specified sepsis (principal); U07.1 COVID-19; R65.20 Severe sepsis without septic shock; J96.01 Acute respiratory failure with hypoxia; E66.2 Morbid (severe) obesity with alveolar hypoventilation; J12.89 Other viral pneumonia; D69.6 Thrombocytopenia, unspecified; E11.65 Type 2 diabetes mellitus with hyperglycemia; E87.0 Hyperosmolality and hypernatremia; R00.1 Bradycardia, unspecified; E86.0 Dehydration; I10 Essential (primary) hypertension; F41.9 Anxiety disorder, unspecified; N17.0 Acute kidney failure with tubular necrosis; Z88.8 Allergy status to other drugs, medicaments and biological substances; Z91.013 Allergy to seafood; Z68.43 Body mass index [BMI] 50.0-59.9, adult; Z83.3 Family history of diabetes mellitus; Z82.49 Family history of ischemic heart disease and other diseases of the circulatory system
CPT/HCPCS: 36415; 36600; 71045; 71275; 74018; 80048; 80053; 81001; 82140; 82728; 82803; 82805; 82947; 82962; 83520; 83615; 83735; 84145; 84165; 84439; 84443; 84478; 85007; 85025; 85027; 85379; 86021; 86038; 86140; 86160; 86850; 86900; 86901; 87040; 87070; 87086; 87205; 93005; 93970; 94002; 94003; 94660; 94760; 96365; 96375; G0378; J0330; J0360; J0456; J0461; J0692; J0696; J1100; J1170; J1630; J1650; J1815; J2250; J2704; J2920; J3010; J3370; J3486; J7030; J7040; J7050; Q9967; U0003-CS

== ENCOUNTER 2022-01-12 10:41 | Emergency (ER) | payer MEDICAID ==
[2022-01-12 10:55] VITALS: BP 232/128
--- NOTE | 2022-01-12 12:38 | XRay Report ---
CHEST 2 VIEWS INDICATION / CLINICAL INFORMATION: SOB. COMPARISON: Chest x-ray on 01/20/2020 FINDINGS: SUPPORT DEVICES: None. HEART / MEDIASTINUM: No significant abnormality. LUNGS / PLEURA: No significant pulmonary or pleural abnormality. No pneumothorax. ADDITIONAL FINDINGS: No significant additional findings. IMPRESSION: 1. No acute findings. Signer Name: Huey Acevedo MD Signed: 01/12/2022 12:34 PM Workstation Name: [employer]
[2022-01-12 13:28] LABS: Hematocrit 43.1 % (30.3-42.9); Hemoglobin 13.9 gm/dl (10.1-14.3); Mean Corpuscular HGB Conc 32 % (30-34); Mean Corpuscular Volume 71 fl (79-97); Platelet Count 359 K/mm3 (140-440); Red Blood Count 6.06 M/mm3 (3.65-5.03); Red Cell Distribution Width 15.2 % (13.2-15.2)
[2022-01-12 13:47] LABS: Alanine Aminotransferase 18 units/L (7-56); Albumin 4.3 g/dL (3.9-5); BUN/Creatinine Ratio 21; Blood Urea Nitrogen 21 mg/dL (7-17); Calcium 9.5 mg/dL (8.4-10.2); Hemolysis Index 0
== END 2022-01-13 01:29 | disposition left against medical advice (07) ==
LOC: ED 10:41
DX: I10 Essential (primary) hypertension (principal); Z53.21 Procedure and treatment not carried out due to patient leaving prior to being seen by health care provider
CPT/HCPCS: 36415; 71046; 80053; 84484; 85027